=== PATIENT | female | born 1975 ===

== ENCOUNTER 2020-10-08 14:46 | Emergency (ER) | payer MEDICAID, SELFPAY ==
[2020-10-08 14:58] VITALS: BP 158/84; PULSE 67; RESP 16; TEMP 36.6; O2SAT 99; BMI 35.6
--- NOTE | 2020-10-08 15:18 | CT_ITS ---
EXAMINATION: CT SHOULDER WITHOUT CONTRAST, RIGHT CLINICAL INFORMATION: Worsening right shoulder pain COMPARISON: Right shoulder 02/10/2020 TECHNIQUE: Axial images obtained through the right shoulder. Coronal and sagittal reformatted images are performed at CT scanner This CT examination was performed using dose optimization techniques as appropriate, variously including the following: *Automated exposure control *Adjustment of mA and/or kV according to patient size (this includes techniques or standardized protocols for targeted exams where dose is matched to indication/reason for exam; i.e. extremities or head) *Use of iterative reconstruction technique DLP: 514 mGy-cm FINDINGS: No fracture. No dislocation. No soft tissue calcifications. There is a small linear spur at the posterior upper glenoid rim, image 111 series 5 there are no bone erosions. The glenohumeral and the heart, clavicular joint spaces are normal. No soft tissue mass. Visualized portions of the right lung right ribs are normal. The right clavicle is unremarkable. CT/CT shoulder RT wo con IMPRESSION: Normal CT of the right shoulder.
--- NOTE | 2020-10-08 16:20 | ED_ITS ---
HPI - Extremity Problem General Chief complaint: Extremity Problem Stated complaint: rt shoulder pain Time Seen by Provider: 10/08/20 15:18 Source: patient Mode of arrival: ambulatory Limitations: language barrier (Thai-speaking) History of Present Illness HPI Narrative: 45-year-old female presenting to the ED with complaints of worsening right shoulder pain since January. Reports that she was seen here sent to a doctor had the injection which resolved her pain for approximately 1 month then she was seen by Orthopedics they explained to her that they would not do surgery due to she was too young for patient then they referred her to physical therapy and she declined physical therapy. Reports she has been taking 800 mg of Motrin and 500 mg of Tylenol and no symptomatic relief. Reports decreased range of motion. Denies any other injuries complaints or concerns related to this including any headaches, changes in vision, jaw pain, nausea / vomiting, paresthesias, extremity edema, chest pain or shortness of breath. Related Data Previous Rx's Medication Instructions Recorded naproxen 500 mg PO BID PRN #10 tab 10/08/20 oxycodone-acetaminophen [Percocet] 1 tab PO Q6H PRN #10 tab 10/08/20 prednisone 40 mg PO DAILY 5 Days #10 tab 10/08/20 Allergies Allergy/AdvReac Type Severity Reaction Status Date / Time penicillin G [PENICILLIN G] Allergy Unknown ANAPHYLAXIS Unverified 07/19/20 16:50 Review of Systems Review of Systems: Cardiovascular : No Chest Pain, No SOB, No Palpitations, No Orthopnea, No JOSUE Respiratory : No Cough Musculoskeletal : + joint pain, No neck stiffness, No back pain/injury Skin : No lacerations Neuro : No Paresthesias Yes all other systems are reviewed and are negative [facility] Past Medical History Attestation statement: The following information was validated with the patient. Medical History No known health problems Social History Social History Advance Directives: No Advance Directives Information Provided: No Physical Exam Vital Signs: Vital Signs: Last Vital Signs Temp 98 F 10/08/20 14:58 Pulse 62 10/08/20 17:11 Resp 17 10/08/20 17:11 BP 155/89 H 10/08/20 17:11 Pulse Ox 99 10/08/20 17:11 Body Mass Index 35.6 vital signs have been reviewed as normal and appeared to be correct. Blood pressure normal. Heart rate normal. Respiration rate normal. Temperature normal. Oxygen saturation normal. Appearance: Alert. Oriented X3. No acute distress. Head: Normal external exam. Normocephalic. Atraumatic. No Helms signs noted. No raccoon eyes noted Eyes: PERRLA. EOMI. Conjunctiva and sclera normal. Eyelids normal. ENT: Pharynx normal. Uvula midline. Moist mucous membranes. Neck: Normal inspection. Neck supple. FROM. No adenopathy. No meningeal signs. CVS: Normal heart rate and rhythm. Heart sound normal. No murmurs noted. Pulses normal throughout. Respiratory: No respiratory distress. Painless inspiration. Breath sounds normal. No wheezes/rales/rhonchi noted. Chest nontender. No accessory muscle usage noted or decreased air movement noted. Back: Full range of motion noted. Skin: Skin warm and dry. Normal skin color. Normal skin turgor. No rashes/lesions/lacerations noted. Extremities: TTP of Right shoulder at ac joint c limited ROM for abduction, adduction, external and internal rotation. No lower extremity edema. Otherwise all other Extremities exhibit normal range of and nontender. Neuro: Oriented X 3. No motor deficit. No sensory deficit. Reflexes normal. Course Course Course Narrative: - 45-year-old female presenting to the ED with complaints of acute on chronic worsening right shoulder pain denies any new injuries. I reviewed the patient's x-ray on 02/10/2020 which revealed a small distal right acromial undersurface osteophyte with associated rotator cuff impingement. No fractures or dislocations noted. - Patient has limited range of motion. No obvious deformities. No extremity swelling. - Will obtain a CT scan without contrast provide symptomatic treatment then re- evaluate. If no acute processes will DC home with pain medications and referral to orthopedics. Patient understands agrees the plan. MDM - Extremity (Nontraumatic) Lab Data Attestation: I reviewed the patient's lab results. Imaging Data Right shoulder ct scan : Attestation: I personally reviewed and interpreted this imaging study as follows: Radiologist's impression: FINDINGS: No fracture. No dislocation. No soft tissue calcifications. There is a small linear spur at the posterior upper glenoid rim, image 111 series 5 there are no bone erosions. The glenohumeral and the heart, clavicular joint spaces are normal. No soft tissue mass. Visualized portions of the right lung right ribs are normal. The right clavicle is unremarkable. CT/CT shoulder RT wo con IMPRESSION: Normal CT of the right shoulder. Discharge Plan Discharge Clinical Impression: Sprain of right shoulder joint Patient Disposition: Home, Self-Care Instructions: Shoulder Sprain (ED) Prescriptions: New prednisone 20 mg tablet 40 mg PO DAILY 5 Days Qty: 10 RF: 0 oxycodone-acetaminophen [Percocet] 5-325 mg tablet 1 tab PO Q6H PRN (Reason: pain) Qty: 10 RF: 0 naproxen 500 mg tablet 500 mg PO BID PRN (Reason: pain) Qty: 10 RF: 0 Referrals: Regina Samuel MD [Physician] - 1 week Stand Alone Forms: Work/School Release Print Language: Thai
[2020-10-08] MEDS: Ibuprofen 800 MG TABLET PO (16:56)
[2020-10-08 17:11] VITALS: BP 155/89; PULSE 62; RESP 17; O2SAT 99
== END 2020-10-08 18:27 | disposition home or self-care (01) ==
PROVIDERS: Emergency Provider Emergency Medicine; PCP Internal Medicine
DX: S43.401A Unspecified sprain of right shoulder joint, initial encounter (principal); X58.XXXA Exposure to other specified factors, initial encounter; Y93.9 Activity, unspecified; Y92.9 Unspecified place or not applicable; Y99.9 Unspecified external cause status
CPT/HCPCS: 73200; 99284

== ENCOUNTER → 2020-10-22 11:23 | Outpatient (BNVA) | payer MEDICAID, SELFPAY | PROVIDERS: PCP Internal Medicine; Visit Provider Orthopaedic Surgery | DX: M75.51 Bursitis of right shoulder (principal) | CPT/HCPCS: 20610; 99212; J1100 ==

== ENCOUNTER 2020-12-28 12:54 | Outpatient (REF) | payer MEDICAID, SELFPAY ==
--- NOTE | ~2020-12-28 | MR_ITS ---
EXAMINATION: MR SHOULDER WITHOUT CONTRAST, RIGHT CLINICAL INFORMATION: Impingement syndrome right shoulder COMPARISON: CT scan of the right shoulder October 2020. TECHNIQUE: MRI of the shoulder without contrast was performed on a high-field scanner. FINDINGS: ROTATOR CUFF: Supraspinatus: There is heterogeneous increased signal involving the distal supraspinatus tendon. This extends anterior to posterior to the level of the insertion over approximately 1 cm medial to lateral. This could reflect tendinosis but more likely reflects at least a partial tear involving the intrasubstance and bursal side but without a clearly measurable tendon gap. There may also be some extension to the articular side. Trace fluid is noted in the subacromial subdeltoid bursa. The muscle is normal. Remaining rotator cuff muscles and tendons are normal. BICEPS: Normal. CORACOACROMIAL ARCH: The undersurface of the acromion is curved with no subacromial spur. There is moderate hypertrophic osteoarthritis of the acromioclavicular joint. Subacromial subdeltoid bursa small amount of fluid present. LABRUM/CAPSULE: Normal. GLENOHUMERAL JOINT/MARROW: Normal. MR/MR shoulder RT wo con IMPRESSION: 1. 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 2. Small abnormality in the distal supraspinatus tendon likely reflecting at least a partial tear. Possible small irregular full-thickness tear but without a clearly measurable tendon gap. 3. Trace fluid in subacromial subdeltoid bursa compatible with bursitis or related to a subtle irregular full-thickness tear.
== END 2020-12-28 12:55 | disposition home or self-care (01) ==
LOC: HO.MRI 12:54
PROVIDERS: Visit Provider Orthopaedic Surgery
DX: M75.41 Impingement syndrome of right shoulder (principal)
CPT/HCPCS: 73221

== ENCOUNTER 2021-01-01 14:00 | Outpatient (RCR) | payer MEDICAID, SELFPAY ==
--- NOTE | 2020-11-12 17:17 | MHC.PT.EP ---
[facility] [place] Office [place] Office [place] Office [address] Jenifer Bhagat [address] [phone] F: [phone] F: [phone] F: [phone] F: [phone] Physical Therapy Plan of Care Date of Evaluation: 11/12/20 Date of Surgery: Diagnosis: This is a RHD 45 yo female presenting to skilled PT with a script for bursitis of R shoulder. Assessment: This is a 45 yo female presenting to skilled PT with a script for bursitis of R shoulder. This patient is being [place] [facility] [place]. She has had an increase in shoulder pain ongoing since the beginning of Oct 2020 and was seen [place] [facility] [place]. She has had this pain before and had therapy in the past with little improvement in symptoms (the last session being in the summer) however her pain has recently been getting worse. She did not have any injury. She was given an injection on 10/22 at ortho (this was not helpful), was dx'd with bursitis of the R shoulder and referred to PT. Functionally, she states that she cannot comb her hair, clean as usual, don/doff her clothes or hold/lift objects without pain. Her pain is located at the anterior shoulder, UT and into the R bicep. She describes her pain as grossly achy/stabbing and occasional burning at the GHJ. Her assists with housework and dressing at this time due to pain. Assessment reveals pain that ranges from an 8-10/10. She demos very poor shoulder AROM and tolerance for any AAROM, deficits in strength, impaired posture and decreased functional tolerance with all ADLs and housework. She is tender to palpate throughout the R GHJ/UT and became emotional when asked to move her arm in general. She is a fair candidate for skilled PT 2x/wk for 4wks as she has had PT in the past with little relief. Frequency and Duration: The patient will be seen 2x/wk for 4 wks Short Term Goals: I in HEP Demo an improvement in shoulder AROM by at least 10 degs Demo postural correction without cuing from PT Group Home Goals: Demo functional ROM and strength Improve SPADI by grossly 10 points Tolerate combing her hair without more than 2/10 pain Demo good lifting, reaching techniques without assist Treatment Plan: Modalities to reduce pain, spasms and effusion. Manual therapy to restore motion and function. Therapeutic exercise to improve strength and flexibility. Neuromuscular re-education for posture and balance. Therapeutic activities to return to functional activities of daily living. Electronically signed by: Snehal Cannon PT Please sign and return to therapist. Thank you for your referral.
--- NOTE | 2021-01-10 12:48 | MHC.PT.DC ---
[facility] [place] Office [place] Office [place] Office [address] Bhagat [address] [phone] F: [phone] F: [phone] F: [phone] F: [phone] Physical Therapy Discharge Report Diagnosis: This is a RHD 45 yo female presenting to skilled PT with a script for bursitis of R shoulder. Date of Surgery: Date of Evaluation: 11/12/20 Date of Discharge: 01/10/21 Treatments to Date: 14 Cancellations to Date: 0 No Shows to Date: 0 Discharge Status: Recommend MD Follow-up Discharge Summary: Pt gets relief from distraction of right GH joint. we have addressed soft tissue irritability, scap and GH ROM, postural ed, and a HEP to address strength deficits in posterior RC- Pt noted she is sched for Rt shoulder surgery next week- her residual Rt sh pain prevented her from progression in PT as well as ADL tolerance. Electronically signed by: Jess Abdi,PT Please sign and return to therapist. Thank you for your referral.
== END 2021-01-10 12:49 | disposition other institution (70) ==
LOC: HO.PTCHIC 14:00
PROVIDERS: PCP Internal Medicine; Visit Provider Orthopaedic Surgery
DX: M75.51 Bursitis of right shoulder (principal)
CPT/HCPCS: 97014; 97035; 97110; 97140; 97162

== ENCOUNTER → 2021-01-03 13:48 | Outpatient (BNVA) | payer MEDICAID, SELFPAY | PROVIDERS: Visit Provider Orthopaedic Surgery | DX: M75.41 Impingement syndrome of right shoulder (principal); S46.009A Unspecified injury of muscle(s) and tendon(s) of the rotator cuff of unspecified shoulder, initial encounter | CPT/HCPCS: 20610; 99212 ==

== ENCOUNTER 2021-01-16 07:25 | Day surgery (SDC) | payer MEDICAID, SELFPAY ==
[2021-01-09 12:30] VITALS: BMI 34.9
--- NOTE | 2021-01-15 10:17 | HO.ANESPROP2 ---
Documented by User: Aleah Marcie 01/15/21 10:19 HPI - Anesthesia Eval Consult details Narrative: 45yo F for Shoulder Arthroscopy PMFSH Past Medical History Medical History Allergies GERD (gastroesophageal reflux disease) Headache Family History Family History Mother No problems noted. Father No problems noted. Surgical History Surgical History History of tubal ligation Hx of tonsillectomy Social History Social History Are you a primary career development consultant to a significant other at home: No Do you presently have visiting nurse or other home services: No Smoking Status: Never smoker Use of substances other than those prescribed or required for medical reasons: No Have you been hit, kicked, punched, or otherwise hurt by someone within the past year? 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 Meds Allergies Allergy/AdvReac Type Severity Reaction Status Date / Time penicillin G [PENICILLIN G] Allergy Unknown ANAPHYLAXIS Verified 01/16/21 08:28 Home Medications Medication Instructions Recorded Confirmed Last Taken Type cetirizine 1 tab PO DAILY 01/09/21 01/09/21 Unknown History ibuprofen 1 tab PO QID PRN 01/09/21 01/16/21 01/09/21 History omeprazole 1 cap PO DAILY 01/09/21 01/09/21 Unknown History topiramate 1 tab PO DAILY 01/09/21 01/09/21 Unknown History Exam Exam Date and Time: January 15, 2021 1017 Height,Weight and Vital Signs: Height 5 ft 5 in Weight 95.254 kg Pertinent Lab Results Pertinent Lab Results: Laboratory Tests 07/12/20 07/12/20 21:14 21:14 WBC 10.3 Hgb 12.2 Hct 37.9 Plt Count 334 Sodium 141 Potassium 4.0 Chloride 107 BUN 9 Creatinine 0.93 Assessment and Plan Assessment Anesthesia Assessment: Chart Reviewed Documented by User: Lloyd Griffiths MD 01/16/21 12:38 PMFSH Past Medical History Medical History Allergies GERD (gastroesophageal reflux disease) Headache Family History Family History Mother No problems noted. Father No problems noted. Surgical History Surgical History History of tubal ligation Hx of tonsillectomy Social History Social History Are you a primary career development consultant to a significant other at home: No Do you presently have visiting nurse or other home services: No Smoking Status: Never smoker Use of substances other than those prescribed or required for medical reasons: No Have you been hit, kicked, punched, or otherwise hurt by someone within the past year? 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 Meds Allergies Allergy/AdvReac Type Severity Reaction Status Date / Time penicillin G [PENICILLIN G] Allergy Unknown ANAPHYLAXIS Verified 01/16/21 08:28 Home Medications Medication Instructions Recorded Confirmed Last Taken Type cetirizine 1 tab PO DAILY 01/09/21 01/09/21 Unknown History ibuprofen 1 tab PO QID PRN 01/09/21 01/16/21 01/09/21 History omeprazole 1 cap PO DAILY 01/09/21 01/09/21 Unknown History topiramate 1 tab PO DAILY 01/09/21 01/09/21 Unknown History Exam Airway Mallampati Class: I TM Dist: >3cm Neck ROM: Full Loose/Missing/Broken Teeth: No Heart: RRR Lungs: NL Assessment and Plan Assessment Anesthesia Assessment: Anesthesia Plan Discussed and Chart Reviewed Final Anesthetic Review NPO: Yes ASA Class: II Final Preanesthetic Review: No Changes in Pt Med Stat, Meds/Allgs Chart Reviewed, Consent Obtained/Reviewed and Anes Risks/Benef Reviewed Patient Risk: Intermediate Procedure Risk: Intermediate Anesthetic Plan Anesthetic Plan: GA and Regional Block Disposition: Standard PACU
[2021-01-16 08:21] VITALS: BP 132/87; PULSE 83; RESP 18; TEMP 36.8; O2SAT 98
[2021-01-16] MEDS: Lactated Ringers 1,000 ML 100 ML IVCONT (08:47)
--- NOTE | 2021-01-16 13:15 | P.BOP_ITS ---
Brief Operative Note Date of Service: 01/16/21 Pre-op diagnosis: right rtc tear Post-op diagnosis: same Procedure: r rtc repair and sad Implants: Regeneten luciano and nephew bioinductive rtc implant Surgeon: Troy Bueno MD Anesthesia: GETA and regional Gaming Cage Cashier: Heike Dorsey Estimated blood loss (mL): 20 Tourniquet time (min): 0 IV fluids (mL): 1,000 Pathology: none sent Condition: stable Disposition: PACU
[2021-01-16 13:36] VITALS: BP 121/73; PULSE 90; RESP 12; TEMP 36.9; O2SAT 100
[2021-01-16 13:41] VITALS: BP 125/77; PULSE 83; RESP 16; O2SAT 96
[2021-01-16 13:45] VITALS: BP 124/72; PULSE 82; RESP 16; O2SAT 98
[2021-01-16 14:06] VITALS: BP 119/61; PULSE 82; RESP 16; O2SAT 98
[2021-01-16 14:15] VITALS: BP 125/78; PULSE 80; RESP 16; O2SAT 98
--- NOTE | 2021-01-28 12:55 | W.PM.OPN ---
Operative Note Operative Note Date of Service: 01/16/21 Narrative: Pre-op diagnosis: right rtc tear Post-op diagnosis: same Procedure: r rtc repair and sad Implants: Regeneten luciano and nephew bioinductive rtc implant Surgeon: Troy Bueno MD Anesthesia: GETA and regional Production Team Advisor: Heike Dorsey Estimated blood loss (mL): 20 Tourniquet time (min): 0 IV fluids (mL): 1,000 Pathology: none sent Condition: stable Disposition: PACU Procedure in detail: Patient is brought to the operating room placed in the beach chair position. Was prepped and draped in standard sterile fashion and a time-out was called to identify proper site proper procedure proper surgeon and IV antibiotics per weight were administered. I began by making posterolateral stab incision placed my blunt trocar atraumatically into the glenohumeral joint. I insufflated the joint and made a anterior superior portal began my diagnostic arthroscopy. She had no glenohumeral cartilage damage. Gutter was clean. There was some fraying the superior labrum and biceps anchor with minimal tearing. This was debrided with shaver. She did have some anterior interval synovitis which was removed with combination cautery and shaver. There was some undersurface fraying the supraspinatus but otherwise subscapularis was intact and there was no obvious rotator tearing. I then entered the subacromial space and was able to visualize the entirety of the rotator cuff after I established a lateral portal. She had a diminished subacromial space and the supraspinatus was partially torn with approximately 50% the rotator cuff thickness involved. This point I decided to place a bio inductive graft over the portion of torn rotator cuff. There were no full-thickness tears. I placed the 2 cm x 2 cm graft over the area involvement and placed a peek terrell around the graft. Prior to this performed subacromial decompression approximately 6 mm. After the graft was placed I examined it and was happy with the position. Covered the entirety of the involved rotator cuff. Then removed all instrumentation and the portals were closed with nylon. Patient placed in sterile dressing extubated brought to recovery room stable condition there were no complications. Postoperatively we rehab early as per rotator cuff repair with graft protocol.
== END 2021-01-16 14:42 | disposition home or self-care (01) ==
PROVIDERS: PCP Internal Medicine; Visit Provider Orthopaedic Surgery
PROC: (CPT 29826; principal; 2021-01-16 09:50)
DX: S46.011A Strain of muscle(s) and tendon(s) of the rotator cuff of right shoulder, initial encounter (principal); M75.41 Impingement syndrome of right shoulder; X58.XXXA Exposure to other specified factors, initial encounter; Y93.9 Activity, unspecified; Y92.9 Unspecified place or not applicable; Y99.8 Other external cause status; Z88.0 Allergy status to penicillin
CPT/HCPCS: 29827; 29826; C1713; C1781; J0171; J1100; J2250; J2370; J2405; J3010

== ENCOUNTER → 2021-01-28 09:46 | Outpatient (BNVA) | payer MEDICAID, SELFPAY | PROVIDERS: PCP Internal Medicine; Visit Provider Physician Assistant | DX: Z98.890 Other specified postprocedural states (principal) | CPT/HCPCS: 99212 ==

== ENCOUNTER → 2021-03-01 12:45 | Outpatient (BNVA) | payer MEDICAID, SELFPAY | PROVIDERS: PCP Internal Medicine; Visit Provider Physician Assistant | DX: Z98.890 Other specified postprocedural states (principal) | CPT/HCPCS: 99212 ==

== ENCOUNTER → 2021-04-15 12:30 | Outpatient (BNVA) | payer MEDICAID, SELFPAY | PROVIDERS: Visit Provider Physician Assistant | DX: Z98.890 Other specified postprocedural states (principal) | CPT/HCPCS: 99212 ==

== ENCOUNTER 2021-06-13 14:00 | Outpatient (RCR) | payer MEDICAID, SELFPAY ==
--- NOTE | 2021-02-06 15:57 | MHC.PT.EP ---
[facility] [place] Office [place] Office [place] Office [address]agat [address] [phone] F: [phone] F: [phone] F: [phone] F: [phone] Physical Therapy Plan of Care Date of Evaluation: 02/06/21 Date of Surgery: 01/16/21 Diagnosis: S/P Rt RC REPAIR W Regeneten luciano and nephew bioinductive rtc implant 01/16/21 Assessment: 45 YO FEMALE S/P Rt RC REPAIR W Regeneten luciano and nephew bioinductive rtc implant 01/16/21- SHE HAS BEEN WEANING Rt SH SLING AND IS REF TO PT AT THIS TIME - Pt CURRENTLY HAS FAMILY ASSIST W ADLs/ DRESSING AND COMPENSATES W HER LEFT UE. Pt HAS POST OP Rt SH ROM DEFICITS, Rt SH COMPLEX WEAKNESS, (+) SOFT TISSUE TENDERNESS AND Rt SH PAIN. FUNCTIONALLY, Pt IS LIMITED W ADLs/ DRESSING, AND GENERAL FUNCTIONAL MOB ANDREW. SHE IS A GOOD CANDIDATE FOR PT TO ASSIT HER ALONG HER POST OP COURSE- Pt HAD DECR ANDREW FOR ROM THIS DATE, SHE NOTED SHE DID NOT TAKE PAIN MEDS OR ICE TODAY. Frequency and Duration: The patient will be seen 2x WK x 5 -8 WKS Short Term Goals: Pt'S Rt SH PAIN DECR TO 2-3/10 AND Pt INDEP W IN 2 WKS RESTORE ROM Rt SH PER PROTOCOL Pt INDEP W SELF POSTURAL CORRECTION IN 2 WKS Head Insulation Board Saw Operator Goals: Pt INDEP W HEP AND SELF- SX MGMT TECHN IN 5-8 WKS Pt DEMON WFL AROM AND SCAP STAB/ Rt UE STRENGTH TO RESUME REG ADLs IN 5-8 WKS Pt'S SPADI SCORE IMPROVED BY 30 POINTS (AT EVAL 130/130) Treatment Plan: Modalities to reduce pain, spasms and effusion. Manual therapy to restore motion and function. Therapeutic exercise to improve strength and flexibility. Neuromuscular re-education for posture and balance. Therapeutic activities to return to functional activities of daily living. Electronically signed by: Jess Jha,PT Please sign and return to therapist. Thank you for your referral.
--- NOTE | 2021-08-21 09:32 | MHC.PT.DC ---
[facility] [place] Office [place] Office [place] Office [address] Jenifer Bhagat [address] [phone] F: [phone] F: [phone] F: [phone] F: [phone] Physical Therapy Discharge Report Diagnosis: S/P Rt RC REPAIR W Evangelina luciano and bassem bioinductive rtc implant 01/16/21 Date of Surgery: 01/16/21 Date of Evaluation: 02/06/21 Date of Discharge: 07/02/21 Treatments to Date: 25 Cancellations to Date: 0 No Shows to Date: 0 Discharge Status: Visit Non-compliance Discharge Summary: Pt with AAROM flexion to 146, ER to 56 at 60 and 90 at last appointment. Pt progress was slow and she had questionable compliance with HEP. She was ultimately discharged due to visit non-compliance including numerous cancels and no-shows. Electronically signed by: Carlos Baxter, PT Please sign and return to therapist. Thank you for your referral.
== END 2021-07-02 14:25 | disposition home or self-care (01) ==
LOC: HO.PTCHIC 14:00
PROVIDERS: PCP Internal Medicine; Visit Provider Orthopaedic Surgery
DX: Z98.890 Other specified postprocedural states (principal)
CPT/HCPCS: 97110; 97112; 97140; 97162; 97164; 97530

== ENCOUNTER → 2021-06-19 11:12 | Outpatient (BNVA) | payer MEDICAID, SELFPAY | PROVIDERS: PCP Internal Medicine; Visit Provider Physician Assistant | DX: M25.611 Stiffness of right shoulder, not elsewhere classified (principal); K21.9 Gastro-esophageal reflux disease without esophagitis; R51.9 Headache, unspecified; Z88.0 Allergy status to penicillin; Z98.890 Other specified postprocedural states | CPT/HCPCS: 99212 ==

== ENCOUNTER → 2021-07-15 11:16 | Outpatient (BNVA) | payer MEDICAID, SELFPAY | PROVIDERS: PCP Internal Medicine; Visit Provider Orthopaedic Surgery | DX: M25.611 Stiffness of right shoulder, not elsewhere classified (principal); Z98.890 Other specified postprocedural states | CPT/HCPCS: 99212 ==

== ENCOUNTER → 2021-10-14 11:17 | Outpatient (BNVA) | payer MEDICAID, SELFPAY | PROVIDERS: PCP Internal Medicine; Visit Provider Orthopaedic Surgery | DX: M75.01 Adhesive capsulitis of right shoulder (principal); Z98.890 Other specified postprocedural states | CPT/HCPCS: 99212 ==

== ENCOUNTER 2021-11-21 12:59 | Emergency (ER) | payer MEDICAID, SELFPAY ==
[2021-11-21 13:27] VITALS: BP 153/93; PULSE 72; RESP 18; TEMP 37.1; O2SAT 99; BMI 31.2
--- NOTE | 2021-11-21 14:34 | ED_ITS ---
HPI - General Adult General Chief complaint: Skin/Abscess/Foreign Body Stated complaint: Vaccine reaction Time Seen by Provider: 11/21/21 14:04 Source: patient Limitations: no limitations History of Present Illness HPI narrative: Patient presents to the ER with left deltoid pain after getting her booster vaccine on the . Patient also feels some lumps in her left axilla. Patient denies fever chills or shortness of breath at this time. Symptoms are [id number]. Pain is 04/11 Related Data Home Medications Medication Instructions Recorded Confirmed cetirizine 10 mg tablet 1 tab PO DAILY 01/09/21 01/09/21 ibuprofen 800 mg tablet 1 tab PO QID PRN 01/09/21 01/16/21 omeprazole 20 mg capsule,delayed 1 cap PO DAILY 01/09/21 01/09/21 release topiramate 50 mg tablet 1 tab PO DAILY 01/09/21 01/09/21 Previous Rx's Medication Instructions Recorded oxycodone 10 mg tablet,crush 10 mg PO Q12H 3 Days #6 tab 01/16/21 resistant,extended release 12 hr (OxyContin) oxycodone-acetaminophen 5 mg-325 1 tab PO Q8H PRN #21 tab 01/29/ mg tablet oxycodone-acetaminophen 5 mg-325 1 tab PO Q8H PRN 7 Days #21 tab 02/07/21 mg tablet (Percocet) oxycodone-acetaminophen 5 mg-325 1 tab PO BID PRN 7 Days #14 tab 02/21/21 mg tablet Allergies Allergy/AdvReac Type Severity Reaction Status Date / Time penicillin G [PENICILLIN G] Allergy Unknown ANAPHYLAXIS Verified 11/21/21 13:27 Review of Systems Constitutional: Constitutional: Denies chills, Denies fever(s) and Denies headache(s) ENT: Denies headache(s) and Denies sore throat Cardiovascular: Cardiovascular: Denies chest pain Respiratory: Respiratory: Denies cough and Denies pain with cough Gastrointestinal: Gastrointestinal: Denies nausea and Denies vomiting Musculoskeletal: Comments: left deltoid pain Neurologic: Denies headache(s) [facility] Past Medical History Attestation statement: The following information was validated with the patient. Medical History Allergies GERD (gastroesophageal reflux disease) Headache Surgical History History of tubal ligation Hx of tonsillectomy Family History Family History Mother No problems noted. Father No problems noted. 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 Blood pressure normal. Heart rate normal. Respiration rate normal. Temperature normal. Oxygen saturation normal. Appearance: Alert. Oriented X3. No acute distress. Head: Normal external exam. Normocephalic. Eyes: PERRLA. EOMI. Conjunctiva and sclera normal. Eyelids normal. ENT: Pharynx normal. Uvula midline. Moist mucous membranes. CVS: Heart regular rate and rhythm no murmurs and rubs Respiratory: Breath sounds are clear to auscultation bilaterally. No accessory muscle use noted. Skin: skin is warm and dry left axilla no sign of abscess some light adenopathy palpated. Extremities: Left deltoid slight tenderness from where vaccine was injected possible small hematoma Neuro: Oriented X 3. No motor deficit. No sensory deficit. Reflexes normal. Course Course Course Narrative: left deltoid hematoma status post vaccine left axilla adenopathy secondary to vaccine vaccine reaction left axilla adenopathy likely secondary to vaccine booster patient instructed this is a normal response to a vaccine warm compresses recommended Motrin Tylenol for pain Discharge Plan Discharge Clinical Impression: Hematoma Patient Disposition: Home, Self-Care Instructions: Hematoma (ED) Additional Instructions: warm compresses to left shoulder and left axilla your response to the vaccine is normal in seen in many patients Tylenol Motrin for pain Prescriptions: No Action oxycodone-acetaminophen 5-325 mg tablet 1 tab PO Q8H PRN (Reason: pain) Qty: 21 RF: 0 oxycodone-acetaminophen [Percocet] 5-325 mg tablet 1 tab PO Q8H PRN (Reason: pain (scale score 4-6)) 7 Days Qty: 21 RF: 0 oxycodone-acetaminophen 5-325 mg tablet 1 tab PO BID PRN (Reason: pain) 7 Days Qty: 14 RF: 0 cetirizine 10 mg tablet 1 tab PO DAILY RF: 0 omeprazole 20 mg capsule,delayed release(DR/EC) 1 cap PO DAILY RF: 0 topiramate 50 mg tablet 1 tab PO DAILY RF: 0 ibuprofen 800 mg tablet 1 tab PO QID PRN (Reason: Pain) RF: 0 oxycodone [OxyContin] 10 mg tablet,oral only,ext.rel.12 hr 10 mg PO Q12H 3 Days Qty: 6 RF: 0 Print Language: Tamazight
== END 2021-11-21 14:47 | disposition home or self-care (01) ==
PROVIDERS: Emergency Provider Emergency Medicine; PCP Internal Medicine
DX: M79.81 Nontraumatic hematoma of soft tissue (principal); R59.0 Localized enlarged lymph nodes; M79.602 Pain in left arm; T50.B95A Adverse effect of other viral vaccines, initial encounter; Y92.9 Unspecified place or not applicable
CPT/HCPCS: 99283

== ENCOUNTER 2021-12-17 11:29 | Outpatient (REF) | payer MEDICAID, SELFPAY ==
--- NOTE | ~2021-12-17 | MM_ITS ---
EXAMINATION: MM SCREENING DIGITAL BREAST TOMOSYNTHESIS, BILATERAL CLINICAL INFORMATION: Screening. Asymptomatic. The lifetime risk of breast cancer based on the Tyrer-Cuzick Model is 14%. COMPARISON: Mammography: 12/29/2018, 05/13/2017 (baseline) TECHNIQUE: Digital breast tomosynthesis is performed in both the craniocaudal and mediolateral oblique views along with computer-aided detection (CAD). Synthesized 2D images are generated from the tomosynthesis. FINDINGS: There are scattered areas of fibroglandular density (ACR BI-RADS breast composition Category b). Parenchymal pattern is similar to prior studies. There is no developing density or architectural abnormality. The axilla and skin contours are unremarkable. No significant changes. MM/MM tomosynthesis screening BI IMPRESSION: No mammographic evidence of malignancy. ASSESSMENT: BI-RADS 1: Negative RECOMMENDATION: Routine annual mammography screening. This patient's information was entered into a reminder system with a target due date for their next mammogram.
== END 2021-12-17 11:30 | disposition home or self-care (01) ==
LOC: HO.MAMMO 11:29
PROVIDERS: PCP Internal Medicine; Visit Provider Internal Medicine
DX: Z12.31 Encounter for screening mammogram for malignant neoplasm of breast (principal)
CPT/HCPCS: 77063; 77067

== ENCOUNTER 2022-01-06 11:00 | Outpatient (RCR) | payer MEDICAID, SELFPAY ==
--- NOTE | 2021-12-11 11:34 | MHC.PT.EP ---
[facility] [place] [facility] [place] [facility] [place] [facility] [address] [phone] F: [phone] F: [phone] F: [phone] F: [phone] Physical Therapy Plan of Care Date of Evaluation: Date of Surgery: 01/16/2021 Diagnosis: Adhesive capsulitis of R shoulder Assessment: Julia is a 46 year old female who is referred to PT for adhesive capsulitis of R shoulder . Pt reports of having h/o chronic shoulder pain and rotator cuff surgery in December 2020. She has had several rounds of PT but has not made significant gains. She has returned to PT as she thinks her symptoms are worsening. On PT examination she presented with 8/10 pain with shoulder movements, TTP over shoulder joint line, decreased shoulder ROM, decreased scap muscle strength, altered posture and GH rhythm. Due to these impairments she has difficulty performing ADLS like getting dressed, carrying weights and performing IADLS like cleaning, cooking and grocery. She would benefit from skilled PT to address the aforementioned impairments and improve tolerance to functional activities. Frequency and Duration: The patient will be seen 2/week for 8 weeks Short Term Goals: 1. Pt will have 50% decrease in pain which will enable her to reach in forward and lateral planes in 3 weeks. 2. Pt will be able to move shoulder through full plane of motion with a pain no more than 3/10 which will enable her to dress her upper body in 4 weeks. [employer] Goals: 1. Pt will have an increase in muscle strength by 1 grade which will enable her to carry pots and pans in 6 weeks. 2. Pt will be independent with HEP for symptom management and maintenance following d/c in 8 weeks. Treatment Plan: Modalities to reduce pain, spasms and effusion. Manual therapy to restore motion and function. Therapeutic exercise to improve strength and flexibility. Neuromuscular re-education for posture and balance. Therapeutic activities to return to functional activities of daily living. Electronically signed by: Jennifer Jimenez PT DPT Please sign and return to therapist. Thank you for your referral.
--- NOTE | 2022-01-17 08:37 | MHC.PT.DC ---
[facility] [place] [facility] [place] [facility] [place] [facility] [address] [phone] F: [phone] F: [phone] F: [phone] F: [phone] Physical Therapy Discharge Report Diagnosis: Adhesive capsulitis of R shoulder Date of Surgery: 01/16/2021 Date of Evaluation: 12/11/21 Date of Discharge: 01/17/22 Treatments to Date: 4 Cancellations to Date: 0 No Shows to Date: 0 Discharge Status: Insurance Declined Tx Discharge Summary: Ludwin has been d/c from PT due to insurance issues. She was distributed extensive HEP and was advised to continue them until full recovery. Electronically signed by: Jennifer Jimenez PT DPT Please sign and return to therapist. Thank you for your referral.
== END 2022-01-17 08:37 | disposition home or self-care (01) ==
LOC: HO.PT 11:00
PROVIDERS: PCP Internal Medicine; Visit Provider Orthopaedic Surgery
DX: M75.01 Adhesive capsulitis of right shoulder (principal); M25.611 Stiffness of right shoulder, not elsewhere classified; Z98.890 Other specified postprocedural states
CPT/HCPCS: 97110; 97112; 97140; 97161

== ENCOUNTER → 2022-06-12 13:59 | Outpatient (BNVA) | payer MEDICAID, SELFPAY | PROVIDERS: PCP Internal Medicine; Visit Provider Orthopaedic Surgery | DX: Z98.890 Other specified postprocedural states (principal) | CPT/HCPCS: 99212 ==

== ENCOUNTER 2022-06-25 14:44 | Outpatient (REF) | payer MEDICAID, SELFPAY ==
--- NOTE | ~2022-06-25 | MR_ITS ---
EXAMINATION: MR SHOULDER WITHOUT CONTRAST, RIGHT CLINICAL INFORMATION: Right shoulder pain. Limited range of motion. Surgery in 2019. COMPARISON: Right shoulder MRI dated 12/28/2020. TECHNIQUE: MRI of the shoulder without contrast was performed on a high-field scanner. FINDINGS: ROTATOR CUFF: The supraspinatus tendon appears intervally attenuated when compared to the prior examination without a measurable tendon tear or abnormal intrasubstance signal. There is adjacent postsurgical change. New degenerative spurring adjacent to the insertion at the greater tuberosity. The remaining rotator cuff tendons are intact. No measurable tear. No muscle atrophy or fatty infiltration. BICEPS: Intact. CORACOACROMIAL ARCH: Interval acromioplasty and distal clavicular resection. No marrow edema or evidence of complication. LABRUM/CAPSULE: No displaced labral tear. Intact joint capsule. GLENOHUMERAL JOINT/MARROW: Mild articular cartilage signal heterogeneity with full-thickness loss superiorly. Tiny marginal osteophytes. Findings are slightly progressed when compared to the prior examination. MR/MR shoulder RT wo con IMPRESSION: 1. Postsurgical change of the supraspinatus tendon without recurrent tearing. Overall, the rotator cuff tendons are intact. 2. Acromioplasty and distal clavicular resection without evidence of complication. 3. Mild glenohumeral osteoarthritis, progressed when compared to the prior MRI.
== END 2022-06-25 14:45 | disposition home or self-care (01) ==
LOC: HO.MRI 14:44
PROVIDERS: Visit Provider Orthopaedic Surgery
DX: Z98.890 Other specified postprocedural states (principal)
CPT/HCPCS: 73221

== ENCOUNTER 2022-12-26 15:34 | Emergency (ER) | payer MEDICAID, SELFPAY ==
--- NOTE | ~2022-12-26 | XR_ITS ---
EXAMINATION: XR CHEST CLINICAL INFORMATION: Chest pain. COMPARISON: Chest radiograph 09/15/2013. TECHNIQUE: Frontal view of the chest was obtained. FINDINGS: No significant abnormality is noted involving the heart, lungs, mediastinum, bony thorax or soft tissues. XR/XR chest 1V IMPRESSION: Unremarkable examination.
[2022-12-26 16:13] VITALS: BP 148/78; PULSE 66; RESP 18; TEMP 36.8; O2SAT 99; BMI 25.8
--- NOTE | 2022-12-26 16:13 | ED_ITS ---
HPI - General Adult General Chief complaint: Headache <ERYN Almazan - Last Filed: 12/26/22 16:16> Stated complaint: L earache, nausea, cant hear well out of ear? <ERYN Almazan - Last Filed: 12/26/22 16:16> Time Seen by Provider: 12/26/22 16:59 <ERYN Almazan - Last Filed: 12/26/22 16:16> Source: patient <ERYN Salas - Last Filed: 12/26/22 18:58> Mode of arrival: ambulatory <ERYN Salas Last Filed: 12/26/22 18:58> History of Present Illness HPI narrative: 47-year-old female with a past medical history of GERD, migraines, presenting to the ED complaining of migraine headache, nausea, lightheadedness described as feeling faint worse with position changes and head movement, ear pain, & abdominal discomfort x1 week. Also reports chest pain 2 days ago. Reports dark stools, admits has been taking Pepto-Bismol. Describes headache as typical for migraines, has not self medicated, not maximal in onset. Denies SOB, vomiting, diarrhea, dysuria/hematuria. Takes ASA <ERYN Salas Last Filed: 12/26/22 18:58> Onset (ago): week(s) <ERYN Salas - Last Filed: 12/26/22 18:58> Related Data Home medications: Home Medications Medication Instructions Recorded Confirmed cetirizine 10 mg tablet 1 tab PO DAILY 01/09/21 01/09/21 ibuprofen 800 mg tablet 1 tab PO QID PRN Pain 01/09/21 01/16/21 omeprazole 20 mg capsule,delayed 1 cap PO DAILY 01/09/21 01/09/21 release topiramate 50 mg tablet 1 tab PO DAILY headache 01/09/21 01/09/21 Previous Rx's Medication Instructions Recorded oxycodone 10 mg tablet,crush 10 mg PO Q12H 3 days #6 tabs 01/16/21 resistant,extended release 12 hr (OxyContin) oxycodone-acetaminophen 5 mg-325 1 tab PO Q8H PRN pain #21 tabs 01/29/21 mg tablet oxycodone-acetaminophen 5 mg-325 1 tab PO Q8H PRN pain (scale score 02/07/21 mg tablet (Percocet) 4-6) 7 days #21 tabs oxycodone-acetaminophen 5 mg-325 1 tab PO BID PRN pain 7 days #14 02/21/21 mg tablet tabs <ERYN Almazan - Last Filed: 12/26/22 16:16> Allergies/adverse reactions: Allergies Allergy/AdvReac Type Severity Reaction Status Date / Time penicillin G [PENICILLIN G] Allergy Unknown ANAPHYLAXIS Verified 12/26/22 16:12 <ERYN Almazan - Last Filed: 12/26/22 16:16> Review of Systems Review of Systems: Constitutional: No Fever, No Chills, + Fatigue, No Malaise ENT/Mouth: + Ear Pain, No Nasal Congestion, No Sinus Pain, No Hoarseness, No sore throat, No Rhinorrhea, No Swallowing Difficulty Eyes: No Eye Pain, No Swelling, No Redness, No Vision Changes Cardiovascular: +Chest Pain, No SOB, No Orthopnea, No Edema, No Palpitations Respiratory: No Cough, No Sputum, No Dyspnea Gastrointestinal: No Nausea, No Vomiting, No Diarrhea, No Constipation, + Abdominal pain, +dark stool Genitourinary: No irregular bleeding, No Dysuria, No Hematuria, No Flank Pain, No Urinary Flow Changes Musculoskeletal: No joint pain, No Myalgias, No Joint Swelling Skin: No Skin Lesions, No rash Neuro: +Gen Weakness, No Numbness, No Paresthesias, No Loss of Consciousness, + lightheadedness/ Dizziness, + Headache <ERYN Salas Last Filed: 12/26/22 18:58> Yes all other systems are reviewed and are negative <ERYN Salas Last Filed: 12/26/22 18:58> Constitutional: Constitutional: Reports as per HPI <ERYN Salas Last Filed: 12/26/22 18:58> Neurologic: Denies Abnormal speech present <ERYN Salas Last Filed: 12/26/22 18:58> PMFSH Past Medical History Attestation statement: The following information was validated with the patient. <ERYN Salas Last Filed: 12/26/22 18:58> Medical History: Medical History Allergies GERD (gastroesophageal reflux disease) Headache <ERYN Almazan - Last Filed: 12/26/22 16:16> Surgical History: Surgical History History of tubal ligation Hx of tonsillectomy <ERYN Almazan - Last Filed: 12/26/22 16:16> Family History Family History: Family History Mother No problems noted. Father No problems noted. <ERYN Almazan - Last Filed: 12/26/22 16:16> Social History Social History: Social History Are you a primary geriatric personal care aide to a significant other at home: No Do you presently have visiting nurse or other home services: No Advance Directives: No Advance Directives Information Provided: No Current occupational status: employed Current occupation: D[employer]/right handed <ERYN Almazan - Last Filed: 12/26/22 16:16> Physical Exam ED Vital Signs: Vital Signs - 24 hr 12/26/22 16:13 12/26/22 18:32 12/26/22 18:33 Temperature 98.2 F Pulse Rate 66 54 64 Respiratory Rate 18 Blood Pressure 148/78 H 136/60 131/68 Pulse Oximetry 99 Oxygen Delivery Method Room Air 12/26/22 18:34 Temperature Pulse Rate 64 Respiratory Rate Blood Pressure 121/73 Pulse Oximetry Oxygen Delivery Method BMI result Body Mass Index 25.8 <ERYN Almazan - Last Filed: 12/26/22 16:16> Vital Signs - 24 hr 12/26/22 16:13 12/26/22 18:32 12/26/22 18:33 Temperature 98.2 F Pulse Rate 66 54 64 Respiratory Rate 18 Blood Pressure 148/78 H 136/60 131/68 Pulse Oximetry 99 Oxygen Delivery Method Room Air 12/26/22 18:34 Temperature Pulse Rate 64 Respiratory Rate Blood Pressure 121/73 Pulse Oximetry Oxygen Delivery Method BMI result Body Mass Index 25.8 <ERYN Salas - Last Filed: 12/26/22 18:58> Const General: cooperative, no acute distress, alert and awake <ERYN Salas - Last Filed: 12/26/22 18:58> Orientation/consciousness: patient oriented x3 <ERYN Salas - Last Filed: 12/26/22 18:58> Limitations: no limitations <Billie Do NE - Last Filed: 12/26/22 18:58> HENMT Head: Yes normal to inspection and Yes atraumatic <ERYN Salas - Last Filed: 12/26/22 18:58> Ears: hearing grossly normal bilaterally, external ears normal, TM's normal bilaterally and mastoids normal <ERYN Salas - Last Filed: 12/26/22 18:58> General nose exam: Normal external nose present <ERYN Salas - Last Filed: 12/26/22 18:58> Face and sinus: Yes normal facial exam <ERYN Salas - Last Filed: 12/26/22 18:58> Mouth: Normal oral and palatal mucosa present <ERYN Salas - Last Filed: 12/26/22 18:58> Throat: Yes posterior oropharynx normal, Yes tonsils normal and Yes uvula midline <ERYN Salas - Last Filed: 12/26/22 18:58> Eyes General: appearance normal, both eyes and all related structures <ERYN Salas - Last Filed: 12/26/22 18:58> Pupils: Equal, round and reactive pupils present <ERYN Salas - Last Filed: 12/26/22 18:58> EOM: EOMs intact bilaterally <ERYN Salas - Last Filed: 12/26/22 18:58> Neck Neck: Yes normal visual inspection and Yes no meningeal signs <ERYN Salas - Last Filed: 12/26/22 18:58> Resp Effort & Inspection: normal respiratory effort and no respiratory distress <ERYN Salas - Last Filed: 12/26/22 18:58> Auscultation: clear to auscultation bilaterally, no crackles, no rales and no rhonchi <Billie Pouliot, PA - Last Filed: 12/26/22 18:58> Cardio Rate: regular rate <Billie Poulkendrat PA - Last Filed: 12/26/22 18:58> Heart sounds: S1 normal heart sound present and S2 normal heart sound present <Billie Do, PA - Last Filed: 12/26/22 18:58> GI Inspection: Yes normal to inspection <Billie Do, PA - Last Filed: 12/26/22 18:58> Palpation (GI): Soft to palpation, nontender, no guarding and not rigid <Billie Poulkendrat, PA - Last Filed: 12/26/22 18:58> General: Yes no CVA tenderness <Billie Poulkendrat, PA - Last Filed: 12/26/22 18:58> Back/Spine/Pelvis Back: no CVA tenderness <Billie Poulkendrat, PA - Last Filed: 12/26/22 18:58> Skin Rashes: no rashes <Billie Quinnt PA - Last Filed: 12/26/22 18:58> Wounds: no wounds <Billie Poulkendrat, PA - Last Filed: 12/26/22 18:58> Neuro General: patient oriented x3, tone normal, moves all extremities, no meningeal signs, no focal motor deficits and CN's II-XI intact bilaterally <Billie Do PA - Last Filed: 12/26/22 18:58> Cranial nerves: Yes CN's II-XII intact bilaterally and Yes Equal, round and reactive pupils present <Billie Kait PA - Last Filed: 12/26/22 18:58> Cognition (Neuro): normal cognition <Billie Poulkendrat, PA - Last Filed: 12/26/22 18:58> Speech: No Abnormal speech present <Billie Poultorrie PA - Last Filed: 12/26/22 18:58> Motor exam (neuro): 5/5 motor strength present throughout and Pronator motor function not present <Billie Poulkendrat, PA - Last Filed: 12/26/22 18:58> Coordination: [id number] test normal <Billie Do PA - Last Filed: 12/26/22 18:58> Romberg Test: Negative <Billie Poulkendrat, PA - Last Filed: 12/26/22 18:58> Extrem General: Yes normal to inspection <ERYN Salas Last Filed: 12/26/22 18:58> Course Course Course Narrative: RME performed by Danette Bond PA-C. Patient is a 47 year old female presenting to the emergency room with headache, dizziness, and feeling generally unwell. Labs ordered. Patient placed back in waiting room pending room availabilit and results. <ERYN Almazan Last Filed: 12/26/22 16:16> RME performed by Danette Bond PA-C. Patient is a 47 year old female presenting to the emergency room with headache, dizziness, and feeling generally unwell. Labs ordered. Patient placed back in waiting room pending room availabilit and results. -1748--no leukocytosis. H&H low at 9.4/31.9 > patient does report history of anemia, unsure prior lab values -labs otherwise reassuring. COVID-19 negative -1848--troponin negative. Occult stool negative XR chest 1V IMPRESSION: Unremarkable examination. -orthostatic vital signs negative -1858--on re-evaluation patient reports mild symptomatic improvement. Reports still feeling dizzy. Will give Benadryl and Ativan and re-evaluate. 1900--ED care transferred to [facility] pending re-evaluation and anticipated discharge home <ERYN Salas Last Filed: 12/26/22 18:58> Medications Administered Discontinued Medications Generic Name Dose Route Start Last Admin Trade Name Freq PRN Reason Stop Dose Admin Acetaminophen/Butalbital/Caffeine 2 tab 12/26/22 17:39 12/26/22 18:21 Butalb/Acetamin/Caff 50/325/40 Tablet PO 12/26/22 17:40 2 tab ONCE ONE Administration Meclizine HCl 25 mg 12/26/22 17:37 12/26/22 18:21 Meclizine Hcl 25 Mg Tablet PO 12/26/22 17:38 25 mg ONCE ONE Administration <ERYN Almazan Last Filed: 12/26/22 16:16> Medications Administered Discontinued Medications Generic Name Dose Route Start Last Admin Trade Name Freq PRN Reason Stop Dose Admin Acetaminophen/Butalbital/Caffeine 2 tab 12/26/22 17:39 12/26/22 18:21 Butalb/Acetamin/Caff 50/325/40 Tablet PO 12/26/22 17:40 2 tab ONCE ONE Administration Meclizine HCl 25 mg 12/26/22 17:37 12/26/22 18:21 Meclizine Hcl 25 Mg Tablet PO 12/26/22 17:38 25 mg ONCE ONE Administration <ERYN Salas - Last Filed: 12/26/22 18:58> Medical Decision Making Medical Decision Making MDM Narrative: 47-year-old female with a past medical history of GERD, migraines, presenting to the ED complaining of migraine headache, nausea, lightheadedness described as feeling faint worse with position changes and head movement, ear pain, & abdominal discomfort x1 week. Also reports chest pain 2 days ago. On exam vital signs stable, NAD, nontoxic appearing, lungs CTA, abdomen soft/nontender, no focal neuro deficits. Concern for viral illness vs dehydration/metabolic abnormalities vs ? GI bleed vs migraine headache vs BPPV. Lower suspicion for ACS/PE, appendicitis/diverticulitis, ICH or CVA Plan: EKG, labs, UA, CXR, occult stool, orthostatics, re-evaluate Please refer to course for remaining clinical decision making, interpretation of labs/imaging results, and discussions with consultants and/or family members. <ERYN Salas - Last Filed: 12/26/22 18:58> Differential Diagnosis Differential Diagnoses: The differential diagnosis associated with the presentation includes <ERYN Salas Last Filed: 12/26/22 18:58> As above <ERYN Salas - Last Filed: 12/26/22 18:58> Admission/Observation Consideration of admission/observation: Escalation of care including admission/observation considered <ERYN Salas Last Filed: 12/26/22 18:58> Lab Data [facility] Lab Attestation statement: I reviewed the patient's lab results. <ERYN Salas Last Filed: 12/26/22 18:58> Result Diagrams: 12/26/22 16:46 12/26/22 16:46 <ERYN Almazan - Last Filed: 12/26/22 16:16> Labs: Lab Results 12/26/22 12/26/22 12/26/22 Range/Units 16:46 16:46 16:46 WBC 7.1 (4.8-10.8) X10*3/uL RBC 4.37 (4.20-5.50) X10*6/uL Hgb 9.4 L (12.0-16.0) g/dl Hct 31.9 L (37.0-47.0) % MCV 73.0 L (80.0-98.0) fL MCH 21.5 L (27.0-33.0) pg MCHC 29.5 L (31.0-35.0) g/dl RDW 16.2 H (11.0-16.0) % Plt Count 427 H (160-400) X10*3/uL MPV 8.7 L (9.4-12.3) fL Immature Gran % (Auto) 0.3 (0.0-0.4) % Neut % (Auto) 47.0 (45-73) % Lymph % (Auto) 44.9 H (20-40) % Thomas % (Auto) 7.5 (2-11) % Eos % (Auto) 0.0 (0-4) % Baso % (Auto) 0.3 (0-2) % Lymph # (Auto) 3.2 (1.2-4.9) X10*3/uL Thomas # (Auto) 0.5 (0.1-1.2) X10*3/uL Eos # (Auto) 0.0 (0.0-0.4) X10*3/uL Baso # (Auto) 0.0 (0.0-0.2) X10*3/uL Abs Immat Gran (auto) 0.02 (0.00-0.03) X10*3/uL Absolute Neuts (auto) 3.3 (2.0-8.3) x10*3/uL Absolute Nucleated RBC 0.000 (0.0-0.012) X10*3/uL Nucleated RBC % (auto) 0.0 (0.0-0.2) /100WBC PT (10.0-13.1) SEC INR (0.9-1.1) Sodium 138 (135-145) mmol/L Potassium 4.5 (3.3-5.1) mmol/L Chloride 104 (96-108) mmol/L Carbon Dioxide 29 (22-29) mmol/L Anion Gap 10 L (12-20) BUN 9 (9-16) mg/dL Creatinine 0.82 (0.5-1.4) mg/dL Estim Creat Clear Calc 93.6 Estimated GFR > 60 Random Glucose 133 H (60-115) mg/dL Calcium 9.6 (8.4-10.2) mg/dL Magnesium 2.0 (1.6-2.6) mg/dL Total Bilirubin 0.3 (0.0-1.0) mg/dL AST 15 (5-31) U/L ALT 15 (0-31) U/L Alkaline Phosphatase 88 (39-117) U/L Troponin I High Sens (<3.5-17.0) ng/L Total Protein 7.8 (6.5-8.0) g/dL Albumin 4.1 (3.5-5.0) g/dL Lipase 25 (8-78) U/L Stool Occult Blood (NEGATIVE) COVID-19 ([place]) Negative (Negative) COVID-19 Clin Com See Note 12/26/22 12/26/22 12/26/22 Range/Units 17:44 17:44 17:44 WBC (4.8-10.8) X10*3/uL RBC (4.20-5.50) X10*6/uL Hgb (12.0-16.0) g/dl Hct (37.0-47.0) % MCV (80.0-98.0) fL MCH (27.0-33.0) pg MCHC (31.0-35.0) g/dl RDW (11.0-16.0) % Plt Count (160-400) X10*3/uL MPV (9.4-12.3) fL Immature Gran % (Auto) (0.0-0.4) % Neut % (Auto) (45-73) % Lymph % (Auto) (20-40) % Thomas % (Auto) (2-11) % Eos % (Auto) (0-4) % Baso % (Auto) (0-2) % Lymph # (Auto) (1.2-4.9) X10*3/uL Thomas # (Auto) (0.1-1.2) X10*3/uL Eos # (Auto) (0.0-0.4) X10*3/uL Baso # (Auto) (0.0-0.2) X10*3/uL Abs Immat Gran (auto) (0.00-0.03) X10*3/uL Absolute Neuts (auto) (2.0-8.3) x10*3/uL Absolute Nucleated RBC (0.0-0.012) X10*3/uL Nucleated RBC % (auto) (0.0-0.2) /100WBC PT 11.5 (10.0-13.1) SEC INR 1.0 (0.9-1.1) Sodium (135-145) mmol/L Potassium (3.3-5.1) mmol/L Chloride (96-108) mmol/L Carbon Dioxide (22-29) mmol/L Anion Gap (12-20) BUN (9-16) mg/dL Creatinine (0.5-1.4) mg/dL Estim Creat Clear Calc Estimated GFR Random Glucose (60-115) mg/dL Calcium (8.4-10.2) mg/dL Magnesium (1.6-2.6) mg/dL Total Bilirubin (0.0-1.0) mg/dL AST (5-31) U/L ALT (0-31) U/L Alkaline Phosphatase (39-117) U/L Troponin I High Sens < 3.5 (<3.5-17.0) ng/L Total Protein (6.5-8.0) g/dL Albumin (3.5-5.0) g/dL Lipase (8-78) U/L Stool Occult Blood NEGATIVE (NEGATIVE) COVID-19 ([place]) (Negative) COVID-19 Clin Com <ERYN Almazan - Last Filed: 12/26/22 16:16> Lab Results 12/26/22 12/26/22 12/26/22 Range/Units 16:46 16:46 16:46 WBC 7.1 (4.8-10.8) X10*3/uL RBC 4.37 (4.20-5.50) X10*6/uL Hgb 9.4 L (12.0-16.0) g/dl Hct 31.9 L (37.0-47.0) % MCV 73.0 L (80.0-98.0) fL MCH 21.5 L (27.0-33.0) pg MCHC 29.5 L (31.0-35.0) g/dl RDW 16.2 H (11.0-16.0) % Plt Count 427 H (160-400) X10*3/uL MPV 8.7 L (9.4-12.3) fL Immature Gran % (Auto) 0.3 (0.0-0.4) % Neut % (Auto) 47.0 (45-73) % Lymph % (Auto) 44.9 H (20-40) % Thomas % (Auto) 7.5 (2-11) % Eos % (Auto) 0.0 (0-4) % Baso % (Auto) 0.3 (0-2) % Lymph # (Auto) 3.2 (1.2-4.9) X10*3/uL Thomas # (Auto) 0.5 (0.1-1.2) X10*3/uL Eos # (Auto) 0.0 (0.0-0.4) X10*3/uL Baso # (Auto) 0.0 (0.0-0.2) X10*3/uL Abs Immat Gran (auto) 0.02 (0.00-0.03) X10*3/uL Absolute Neuts (auto) 3.3 (2.0-8.3) x10*3/uL Absolute Nucleated RBC 0.000 (0.0-0.012) X10*3/uL Nucleated RBC % (auto) 0.0 (0.0-0.2) /100WBC PT (10.0-13.1) SEC INR (0.9-1.1) Sodium 138 (135-145) mmol/L Potassium 4.5 (3.3-5.1) mmol/L Chloride 104 (96-108) mmol/L Carbon Dioxide 29 (22-29) mmol/L Anion Gap 10 L (12-20) BUN 9 (9-16) mg/dL Creatinine 0.82 (0.5-1.4) mg/dL Estim Creat Clear Calc 93.6 Estimated GFR > 60 Random Glucose 133 H (60-115) mg/dL Calcium 9.6 (8.4-10.2) mg/dL Magnesium 2.0 (1.6-2.6) mg/dL Total Bilirubin 0.3 (0.0-1.0) mg/dL AST 15 (5-31) U/L ALT 15 (0-31) U/L Alkaline Phosphatase 88 (39-117) U/L Troponin I High Sens (<3.5-17.0) ng/L Total Protein 7.8 (6.5-8.0) g/dL Albumin 4.1 (3.5-5.0) g/dL Lipase 25 (8-78) U/L Stool Occult Blood (NEGATIVE) COVID-19 ([place]) Negative (Negative) COVID-19 Clin Com See Note 12/26/22 12/26/22 12/26/22 Range/Units 17:44 17:44 17:44 WBC (4.8-10.8) X10*3/uL RBC (4.20-5.50) X10*6/uL Hgb (12.0-16.0) g/dl Hct (37.0-47.0) % MCV (80.0-98.0) fL MCH (27.0-33.0) pg MCHC (31.0-35.0) g/dl RDW (11.0-16.0) % Plt Count (160-400) X10*3/uL MPV (9.4-12.3) fL Immature Gran % (Auto) (0.0-0.4) % Neut % (Auto) (45-73) % Lymph % (Auto) (20-40) % Thomas % (Auto) (2-11) % Eos % (Auto) (0-4) % Baso % (Auto) (0-2) % Lymph # (Auto) (1.2-4.9) X10*3/uL Thomas # (Auto) (0.1-1.2) X10*3/uL Eos # (Auto) (0.0-0.4) X10*3/uL Baso # (Auto) (0.0-0.2) X10*3/uL Abs Immat Gran (auto) (0.00-0.03) X10*3/uL Absolute Neuts (auto) (2.0-8.3) x10*3/uL Absolute Nucleated RBC (0.0-0.012) X10*3/uL Nucleated RBC % (auto) (0.0-0.2) /100WBC PT 11.5 (10.0-13.1) SEC INR 1.0 (0.9-1.1) Sodium (135-145) mmol/L Potassium (3.3-5.1) mmol/L Chloride (96-108) mmol/L Carbon Dioxide (22-29) mmol/L Anion Gap (12-20) BUN (9-16) mg/dL Creatinine (0.5-1.4) mg/dL Estim Creat Clear Calc Estimated GFR Random Glucose (60-115) mg/dL Calcium (8.4-10.2) mg/dL Magnesium (1.6-2.6) mg/dL Total Bilirubin (0.0-1.0) mg/dL AST (5-31) U/L ALT (0-31) U/L Alkaline Phosphatase (39-117) U/L Troponin I High Sens < 3.5 (<3.5-17.0) ng/L Total Protein (6.5-8.0) g/dL Albumin (3.5-5.0) g/dL Lipase (8-78) U/L Stool Occult Blood NEGATIVE (NEGATIVE) COVID-19 ([place]) (Negative) COVID-19 Clin Com <ERYN Salas - Last Filed: 12/26/22 18:58> Independent Interpretation I performed an independent interpretation of an: EKG <ERYN Salas - Last Filed: 12/26/22 18:58> Radiology Impression Discussion of test interpretation with radiology: I have reviewed the radiologist's reading. <ERYN Salas - Last Filed: 12/26/22 18:58> Independent Historian Clinical information obtained from an independent historian. History obtained from or confirmed by: Spouse <ERYN Salas - Last Filed: 12/26/22 18:58> External Record Review External record reviewed: Office record, Outpatient record and Prior outpatient labs <ERYN Salas - Last Filed: 12/26/22 18:58> Discharge Plan Discharge Clinical Impression: Migraine, Lightheadedness, Anemia <ERYN Almazan - Last Filed: 12/26/22 16:16> Patient Disposition: Home, Self-Care <ERYN Almazan - Last Filed: 12/26/22 16:16> Instructions: Migraine Headache (ED), Lightheadedness (ED), Anemia (ED) <ERYN Almazan - Last Filed: 12/26/22 16:16> Additional Instructions: Your blood work was reassuring, however you are anemic please have this c losely monitored by her doctor outpatient, recommend repeat blood work next week. Your x-rays unremarkable. You tested negative for COVID. Your stool was negative for blood If her symptoms persist or worsen, headache becomes persistent/unremitting, you have persistent dizziness, nausea/vomiting or chest pain return to the ED Martin an?lisis de keshav fue tranquilizador, sin embargo, usted est? an?germain, por favor frank que martin m?dico ambulatorio lo controle de cerca, recomiende repetir el an?lisis de keshav la pr?xima semana. Tus radiograf?as sin complicaciones. Usted sandy negativo para COVID. Martin materia fecal fue negativa para keshav Si lillian s?ntomas persisten o empeoran, el dolor de shemar se vuelve persistente/incesante, tiene mareos persistentes, n?useas/v?mitos o dolor en el pecho, regrese al servicio de urgencias. <ERYN Almazan - Last Filed: 12/26/22 16:16> Prescriptions: No Action oxycodone-acetaminophen 5-325 mg tablet 1 tab PO Q8H PRN (Reason: pain) Qty: 21 0RF oxycodone-acetaminophen [Percocet] 5-325 mg tablet 1 tab PO Q8H PRN (Reason: pain (scale score 4-6)) 7 Days Qty: 21 0RF oxycodone-acetaminophen 5-325 mg tablet 1 tab PO BID PRN (Reason: pain) 7 Days Qty: 14 0RF cetirizine 10 mg tablet 1 tab PO DAILY omeprazole 20 mg capsule,delayed release(DR/EC) 1 cap PO DAILY topiramate 50 mg tablet 1 tab PO DAILY ibuprofen 800 mg tablet 1 tab PO QID PRN (Reason: Pain) oxycodone [OxyContin] 10 mg tablet,oral only,ext.rel.12 hr 10 mg PO Q12H 3 Days Qty: 6 0RF <ERYN Almazan - Last Filed: 12/26/22 16:16> Referrals: [facility] [Primary Care Provider] - 2 days <ERYN Almazan - Last Filed: 12/26/22 16:16> Print Language: Mohawk <ERYN Almazan - Last Filed: 12/26/22 16:16>
[2022-12-26 16:50] LABS: MANUAL DIFF FLAG NO
[2022-12-26 16:53] LABS: Basophils Percent Auto 0.3 % (0-2); Hematocrit 31.9 % (37.0-47.0); Hemoglobin 9.4 g/dl (12.0-16.0); Imm Gran Abs Auto 0.02 X10*3/uL (0.00-0.03); Imm Gran Pct Auto 0.3 % (0.0-0.4); Lymphocytes Absolute Auto 3.2 X10*3/uL (1.2-4.9); Lymphocytes Percent Auto 44.9 % (20-40); Mean Corpuscular HGB Conc 29.5 g/dl (31.0-35.0); Mean Corpuscular Hemoglobin 21.5 pg (27.0-33.0); Mean Platelet Volume 8.7 fL (9.4-12.3); Monocytes Absolute Auto 0.5 X10*3/uL (0.1-1.2); Monocytes Percent Auto 7.5 % (2-11); Neutrophils Absolute Auto 3.3 x10*3/uL (2.0-8.3); Platelet Count 427 X10*3/uL (160-400); Red Blood Count 4.37 X10*6/uL (4.20-5.50); Red Cell Distribution Width 16.2 % (11.0-16.0); White Blood Count 7.1 X10*3/uL (4.8-10.8)
[2022-12-26 17:07] LABS: Alanine Aminotransferase 15 U/L (0-31); Albumin Level 4.1 g/dL (3.5-5.0); Alkaline Phosphatase 88 U/L (39-117); Anion Gap 10 (12-20); Aspartate Amino Transferase 15 U/L (5-31); Bilirubin Total 0.3 mg/dL (0.0-1.0); Blood Urea Nitrogen 9 mg/dL (9-16); COVID-19 Test Negative (Negative); Calcium 9.6 mg/dL (8.4-10.2); Carbon Dioxide 29 mmol/L (22-29); Chloride 104 mmol/L (96-108); Creatinine Clr Calc Pharmacy 93.6; Estimated Glomerular Filt Rate > 60; Glucose Random 133 mg/dL (60-115); IDNOW Serial# BCCEAD1C; Potassium 4.5 mmol/L (3.3-5.1); Sodium 138 mmol/L (135-145); Total Protein 7.8 g/dL (6.5-8.0)
--- NOTE | 2022-12-26 17:18 | ECG_ITS ---
Test Reason : DIZZINESS Blood Pressure : / mmHG Vent. Rate : 061 BPM Atrial Rate : 061 BPM P-R Int : 132 ms QRS Dur : 082 ms QT Int : 438 ms P-R-T Axes : 063 054 056 degrees QTc Int : 440 ms Normal sinus rhythm Normal ECG No previous ECGs available Referred By: Billie Do Electronically Signed By:TEETEE BROWN
[2022-12-26 17:58] LABS: OBS Int Ctl Valid YES; OBS1 NEGATIVE (NEGATIVE)
[2022-12-26 17:59] LABS: Lipase 25 U/L (8-78)
[2022-12-26 18:03] LABS: Prothrombin Time 11.5 SEC (10.0-13.1)
[2022-12-26 18:20] LABS: Troponin-I High Sensitivity < 3.5 ng/L (<3.5-17.0)
[2022-12-26] MEDS: Meclizine HCl 25 MG TABLET PO (18:21)
[2022-12-26] MEDS: Butalb/Acetamin/Caff 50/325/40 TABLET 2 TAB PO (18:21)
[2022-12-26 18:32] VITALS: BP 136/60; PULSE 54
[2022-12-26 18:33] VITALS: BP 131/68; PULSE 64
[2022-12-26 18:34] VITALS: BP 121/73; PULSE 64
[2022-12-26] MEDS: LORazepam 0.5 MG TABLET PO (19:20)
[2022-12-26] MEDS: diphenhydrAMINE HCL 25 MG CAPSULE PO (19:20)
--- NOTE | 2022-12-26 19:22 | PC.NURSE ---
medicated per provider order
== END 2022-12-26 21:12 | disposition home or self-care (01) ==
PROVIDERS: Physician Assistant; Physician Assistant Medical; Emergency Provider Emergency Medicine Emergency Medical Services
DX: G43.909 Migraine, unspecified, not intractable, without status migrainosus (principal); R07.89 Other chest pain; R42 Dizziness and giddiness; D64.9 Anemia, unspecified; Z20.822 Contact with and (suspected) exposure to COVID-19; Z20.828 Contact with and (suspected) exposure to other viral communicable diseases; Z79.899 Other long term (current) drug therapy
CPT/HCPCS: 36415; 71045; 80053; 82272; 83690; 83735; 84484; 85025; 85610; 87635; 93005; 99283; 99284

== ENCOUNTER 2023-02-25 11:46 | Emergency (ER) | payer MEDICAID, SELFPAY ==
[2023-02-25 11:49] VITALS: BP 135/71; PULSE 95; RESP 18; TEMP 36.9; O2SAT 99; BMI 34.2
--- NOTE | 2023-02-25 11:54 | ED_ITS ---
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 Patient states that over the last few months she has had pain in all of her joints, particularly in her fingers. Patient denies any dizziness, lightheadedness, abdominal pain, nausea, vomiting, fever, chills, weight loss, weight gain, blurry vision, double vision, loss of vision, chest pain, difficulty breathing, shortness of breath, back pain, night sweats, pain with urination, increased urinary frequency, increased urinary urgency, blood in her urine or stool, syncope or a near syncopal episode, recent trauma or falls, bowel incontinence, bladder incontinence, bowel retention, bladder retention, or any other complaints at this time. <ERYN Almazan - Last Filed: 02/25/23 15:36> Onset (ago): month(s) <ERYN Almazan Last Filed: 02/25/23 15:36> Severity: mild <EYRN Almazan Last Filed: 02/25/23 15:36> Severity scale (1-10): 2 <ERYN Almazan Last Filed: 02/25/23 15:36> Quality: aching <ERYN Almazan Last Filed: 02/25/23 15:36> Pain Consistency: constant <ERYN Almazan Last Filed: 02/25/23 15:36> Relieving factors: none <ERYN Almazan - Last Filed: 02/25/23 15:36> Exacerbating factors: none <ERYN Almazan Last Filed: 02/25/23 15:36> Associated symptoms: denies other symptoms <ERYN Almazan - Last Filed: 02/25/23 15:36> Treatments prior to arrival: none <ERYN Almazan - Last Filed: 02/25/23 15:36> Related Data Home medications: Home Medications Medication Instructions Recorded Confirmed cetirizine 10 mg tablet 1 tab PO DAILY 01/09/21 01/09/21 ibuprofen 800 mg tablet 1 tab PO QID PRN Pain 01/09/21 01/16/21 omeprazole 20 mg capsule,delayed 1 cap PO DAILY 01/09/21 01/09/21 release topiramate 50 mg tablet 1 tab PO DAILY headache 01/09/21 01/09/21 Previous Rx's Medication Instructions Recorded oxycodone 10 mg tablet,crush 10 mg PO Q12H 3 days #6 tabs 01/16/21 resistant,extended release 12 hr (OxyContin) oxycodone-acetaminophen 5 mg-325 1 tab PO Q8H PRN pain #21 tabs 01/29/21 mg tablet oxycodone-acetaminophen 5 mg-325 1 tab PO Q8H PRN pain (scale score 02/07/ mg tablet (Percocet) 4-6) 7 days #21 tabs oxycodone-acetaminophen 5 mg-325 1 tab PO BID PRN pain 7 days #14 02/21/21 mg tablet tabs prednisone 20 mg tablet 20 mg PO DAILY 7 days #7 tabs 02/25/23 <ERYN Polo - Last Filed: 02/25/23 11:55> Allergies/adverse reactions: Allergies Allergy/AdvReac Type Severity Reaction Status Date / Time penicillin G [PENICILLIN G] Allergy Unknown ANAPHYLAXIS Verified 02/25/23 11:53 shrimp Allergy Anaphylaxis Verified 02/25/23 11:54 <ERYN Polo Last Filed: 02/25/23 11:55> Review of Systems Constitutional: Constitutional: Reports no additional constitutional complaint s, Denies chills, Denies fever(s) and Denies night sweats <ERYN Almazan Last Filed: 02/25/23 15:36> Eyes: Eyes: Reports no additional eye complaints, Denies blurry vision, Denies change in vision, Denies diplopia, Denies eye discharge, Denies loss of vision and Denies eye pain <ERYN Almazan Last Filed: 02/25/23 15:36> ENT: Denies dizziness <ERYN Almazan Last Filed: 02/25/23 15:36> Cardiovascular: Cardiovascular: Reports no additional cardiovascular complaints, Denies chest pain, Denies lightheadedness, Denies Loss of Consciousness and Denies dyspnea <ERYN Almazan Last Filed: 02/25/23 15:36> Respiratory: Respiratory: Reports no additional respiratory complaints and Denies dyspnea <ERYN Almazan Last Filed: 02/25/23 15:36> Gastrointestinal: Gastrointestinal: Reports no additional gastrointestinal complaints, Denies abdominal pain, Denies melena, Denies hematochezia, Denies change in bowel habits and Denies change in stool character <ERYN Almazan Last Filed: 02/25/23 15:36> Genitourinary: Genitourinary: Denies hematuria, Denies urinary frequency, Denies dysuria, Denies urinary incontinence, Denies urinary hesitancy and Denies urinary urgency <ERYN Almazan Last Filed: 02/25/23 15:36> Musculoskeletal: Musculoskeletal: Reports no additional musculoskeletal complaints, Reports arthralgias, Denies numbness and Denies tingling <ERYN Almazan Last Filed: 02/25/23 15:36> Neurologic: Denies dizziness, Denies loss of vision, Denies numbness and Denies tingling <ERYN Almazan Last Filed: 02/25/23 15:36> Psychiatric: Psychiatric: Reports no additional psychiatric complaints <ERYN Almazan Last Filed: 02/25/23 15:36> Endocrine: Endocrine: Reports no additional endocrine complaints <ERYN Almazan Last Filed: 02/25/23 15:36> Hematologic/Lymphatic: Hematologic/Lymphatic: Reports no additional hematologic/lymphatic complaints <ERYN Almazan Last Filed: 02/25/23 15:36> Allergic/Immunologic: Allergic/Immunologic: Reports no additional allergic/immunologic complaints <ERYN Almazan - Last Filed: 02/25/23 15:36> [facility] Past Medical History Attestation statement: The following information was validated with the patient. <ERYN Almazan - Last Filed: 02/25/23 15:36> Source: old records reviewed and nursing notes reviewed <ERYN Almazan - Last Filed: 02/25/23 15:36> Medical History: Medical History Allergies GERD (gastroesophageal reflux disease) Headache <ERYN Polo - Last Filed: 02/25/23 11:55> Surgical History: Surgical History History of tubal ligation Hx of tonsillectomy <ERYN Polo - Last Filed: 02/25/23 11:55> Family History Family History: Family History Mother No problems noted. Father No problems noted. 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 <ERYN Polo - Last Filed: 02/25/23 11:55> Physical Exam ED Vital Signs: Vital Signs - 24 hr 02/25/23 11:49 Temperature 98.5 F Pulse Rate 95 Respiratory Rate 18 Blood Pressure 135/71 Pulse Oximetry 99 Oxygen Delivery Method Room Air BMI result Body Mass Index 34.2 <ERYN Polo - Last Filed: 02/25/23 11:55> Vital Signs - 24 hr 02/25/23 11:49 Temperature 98.5 F Pulse Rate 95 Respiratory Rate 18 Blood Pressure 135/71 Pulse Oximetry 99 Oxygen Delivery Method Room Air BMI result Body Mass Index 34.2 <Danette Mairegina [facility] Last Filed: 02/25/23 15:36> Const General: cooperative, no acute distress, alert and awake <ERYN Almazan Wi st Filed: 02/25/23 15:36> Nutritional Appearance: well nourished <Danette MaiERYN tapia Last Filed: 02/25/23 15:36> Orientation/consciousness: patient oriented x3 <Danette Bond [facility] Last Filed: 02/25/23 15:36> Limitations: no limitations <Danette Mairegina [facility] Last Filed: 02/25/23 15:36> HENMT Head: Yes normal to inspection and Yes atraumatic <Danettealona Mairegina [place] - Last Filed: 02/25/23 15:36> Ears: hearing grossly normal bilaterally and external ears normal <Danette Bond [facility] Last Filed: 02/25/23 15:36> General nose exam: Normal external nose present, no nasal discharge noted and no epistaxis <Danette Bond, [facility] Last Filed: 02/25/23 15:36> Face and sinus: Yes normal facial exam, No abrasion and No laceration <Danette Mairegina [facility] Last Filed: 02/25/23 15:36> Mouth: Normal oral and palatal mucosa present, no drooling and no muffled voice <Danette Mairegina NC - Last Filed: 02/25/23 15:36> Eyes General: appearance normal, both eyes and all related structures <ERYN Almazan Last Filed: 02/25/23 15:36> Periorbital: periorbital findings normal <Danettealona Maiergina [facility] Last Filed: 02/25/23 15:36> Eyelids: Yes eyelids normal <Danettealona Mairegina NC - Last Filed: 02/25/23 15:36> Conjunctivae: conjunctivae normal <Danette Varun NC - Last Filed: 02/25/23 15:36> Pupils: Equal, round and reactive pupils present <Danette ERYN Bond Last Filed: 02/25/23 15:36> EOM: EOMs intact bilaterally <Danette Bond NC - Last Filed: 02/25/23 15:36> Neck Neck: Yes normal visual inspection, Yes full ROM and Yes no lymphadenopathy <Danette Bond NC - Last Filed: 02/25/23 15:36> Chest Chest palpation & inspection: normal inspection of the chest <Danette Bond ERYN - Last Filed: 02/25/23 15:36> Resp Effort & Inspection: normal respiratory effort and able to speak in complete sentences <Danette Bond NC - Last Filed: 02/25/23 15:36> Auscultation: clear to auscultation bilaterally <Danette Bond NC - Last Filed: 02/25/23 15:36> Cardio Rate: regular rate <Danette Bond NC - Last Filed: 02/25/23 15:36> Rhythm: regular rhythm <ERYN Almazan - Last Filed: 02/25/23 15:36> GI Inspection: Yes normal to inspection <Danette Bond NC - Last Filed: 02/25/23 15:36> Neuro General: patient oriented x3 and moves all extremities <Danette Bond NC - Last Filed: 02/25/23 15:36> Cranial nerves: Yes Equal, round and reactive pupils present <Danette Bond NC - Last Filed: 02/25/23 15:36> Cognition (Neuro): normal cognition <Danette Bond ERYN - Last Filed: 02/25/23 15:36> Motor exam (neuro): 5/5 motor strength present throughout <Danette Bond NC - Last Filed: 02/25/23 15:36> Sensory Exam: Normal double simultaneous stimulation for sensation <Danette Bond NC - Last Filed: 02/25/23 15:36> Coordination: [id number] test normal <Danette Bond NC - Last Filed: 02/25/23 15:36> Extrem General: Yes normal to inspection, Yes full ROM and Yes capillary refill normal <Danette Bond ERYN - Last Filed: 02/25/23 15:36> Psych Appearance: grossly normal <Danette Bond PA - Last Filed: 02/25/23 15:36> Mental Status: mental status grossly normal <Danette Bond ERYN - Last Filed: 02/25/23 15:36> Affect: normal affect <ERYN Almazan - Last Filed: 02/25/23 15:36> Attitude: cooperative <ERYN Almazan - Last Filed: 02/25/23 15:36> Thought process: Normal thought process present <ERYN Almazan Last Filed: 02/25/23 15:36> Thought content: Normal thought content present <ERYN Almazan Last Filed: 02/25/23 15:36> Insight: Good insight present (Psych) <ERYN Almazan - Last Filed: 02/25/23 15:36> Course Course Course Narrative: This is an RME: Additional HPI, ROS, PE not included below will be deferred to primary provider. 47 year old female presents w/ joint pain all over X few months. Told to come in by PCP for basic work up. PE benign. VSS Plan- basic labs <ERYN Polo - Last Filed: 02/25/23 11:55> Medical Decision Making Medical Decision Making [facility] Narrative: Patient is a 47 year old assigned female at with no reported medical history presenting to the emergency department today with diffuse joint pain. Patient's physical exam was unremarkable. Patient's blood work showed a slightly elevated CRP but was otherwise unremarkable. I explained my physical exam findings as well as all test results to the patient. I answered all questions asked by the patient. I stressed the importance of the patient taking her medication as prescribed. I stressed the importance of the patient following up with her primary care provider and a band saw operator. I stressed the importance of the patient returning to the emergency department immediately if her symptoms were to worsen or if she were to develop any dizziness, shortness of breath, difficulty breathing, chest pain, blurry vision, loss of vision, nausea, vomiting, abdominal pain, fever, chills, back pain, or any other complaints. Patient verbalized agreement and understanding with this treatment plan and d ischarge. <ERYN Almazan Last Filed: 02/25/23 15:36> Differential Diagnosis Differential Diagnoses: The differential diagnosis associated with the presentation includes <ERYN Le Last Filed: 02/25/23 15:36> joint pain <ERYN Almazan Last Filed: 02/25/23 15:36> Lab Data [facility] Lab Attestation statement: I reviewed the patient's lab results. <ERYN Almazan - Last Filed: 02/25/23 15:36> Result Diagrams: 02/25/23 12:02 02/25/23 12:02 <ERYN Polo - Last Filed: 02/25/23 11:55> Labs: Lab Results 02/25/23 02/25/23 02/25/23 Range/Units 12:02 12:02 12:02 WBC 7.9 (4.8-10.8) X10*3/uL RBC 4.49 (4.20-5.50) X10*6/uL Hgb 11.1 L (12.0-16.0) g/dl Hct 36.4 L (37.0-47.0) % MCV 81.1 (80.0-98.0) fL MCH 24.7 L (27.0-33.0) pg MCHC 30.5 L (31.0-35.0) g/dl RDW 22.0 H (11.0-16.0) % Plt Count 339 (160-400) X10*3/uL MPV 9.5 (9.4-12.3) fL Immature Gran % (Auto) 0.3 (0.0-0.4) % Neut % (Auto) 63.5 (45-73) % Lymph % (Auto) 30.5 (20-40) % [place] % (Auto) 5.6 (2-11) % Eos % (Auto) 0.0 (0-4) % Baso % (Auto) 0.1 (0-2) % Lymph # (Auto) 2.4 (1.2-4.9) X10*3/uL [place] # (Auto) 0.4 (0.1-1.2) X10*3/uL Eos # (Auto) 0.0 (0.0-0.4) X10*3/uL Baso # (Auto) 0.0 (0.0-0.2) X10*3/uL Abs Immat Gran (auto) 0.02 (0.00-0.03) X10*3/uL Absolute Neuts (auto) 5.0 (2.0-8.3) x10*3/uL Absolute Nucleated RBC 0.000 (0.0-0.012) X10*3/uL Nucleated RBC % (auto) 0.0 (0.0-0.2) /100WBC ESR 16 (0-20) MM/HR Sodium 138 (135-145) mmol/L Potassium 4.0 (3.3-5.1) mmol/L Chloride 105 (96-108) mmol/L Carbon Dioxide 24 (22-29) mmol/L Anion Gap 13 (12-20) BUN 12 (9-16) mg/dL Creatinine 0.83 (0.5-1.4) mg/dL Estim Creat Clear Calc 95.6 Estimated GFR > 60 Random Glucose 240 H (60-115) mg/dL Calcium 9.3 (8.4-10.2) mg/dL Total Bilirubin 0.4 (0.0-1.0) mg/dL AST 14 (5-31) U/L ALT 16 (0-31) U/L Alkaline Phosphatase 89 (39-117) U/L C-Reactive Protein 1.04 H (< or = 0.50) mg/dL Total Protein 7.5 (6.5-8.0) g/dL Albumin 4.1 (3.5-5.0) g/dL <ERYN Polo - Last Filed: 02/25/23 11:55> Lab Results 02/25/23 02/25/23 02/25/23 Range/Units 12:02 12:02 12:02 WBC 7.9 (4.8-10.8) X10*3/uL RBC 4.49 (4.20-5.50) X10*6/uL Hgb 11.1 L (12.0-16.0) g/dl Hct 36.4 L (37.0-47.0) % MCV 81.1 (80.0-98.0) fL MCH 24.7 L (27.0-33.0) pg MCHC 30.5 L (31.0-35.0) g/dl RDW 22.0 H (11.0-16.0) % Plt Count 339 (160-400) X10*3/uL MPV 9.5 (9.4-12.3) fL Immature Gran % (Auto) 0.3 (0.0-0.4) % Neut % (Auto) 63.5 (45-73) % Lymph % (Auto) 30.5 (20-40) % [place] % (Auto) 5.6 (2-11) % Eos % (Auto) 0.0 (0-4) % Baso % (Auto) 0.1 (0-2) % Lymph # (Auto) 2.4 (1.2-4.9) X10*3/uL [place] # (Auto) 0.4 (0.1-1.2) X10*3/uL Eos # (Auto) 0.0 (0.0-0.4) X10*3/uL Baso # (Auto) 0.0 (0.0-0.2) X10*3/uL Abs Immat Gran (auto) 0.02 (0.00-0.03) X10*3/uL Absolute Neuts (auto) 5.0 (2.0-8.3) x10*3/uL Absolute Nucleated RBC 0.000 (0.0-0.012) X10*3/uL Nucleated RBC % (auto) 0.0 (0.0-0.2) /100WBC ESR 16 (0-20) MM/HR Sodium 138 (135-145) mmol/L Potassium 4.0 (3.3-5.1) mmol/L Chloride 105 (96-108) mmol/L Carbon Dioxide 24 (22-29) mmol/L Anion Gap 13 (12-20) BUN 12 (9-16) mg/dL Creatinine 0.83 (0.5-1.4) mg/dL Estim Creat Clear Calc 95.6 Estimated GFR > 60 Random Glucose 240 H (60-115) mg/dL Calcium 9.3 (8.4-10.2) mg/dL Total Bilirubin 0.4 (0.0-1.0) mg/dL AST 14 (5-31) U/L ALT 16 (0-31) U/L Alkaline Phosphatase 89 (39-117) U/L C-Reactive Protein 1.04 H (< or = 0.50) mg/dL Total Protein 7.5 (6.5-8.0) g/dL Albumin 4.1 (3.5-5.0) g/dL <ERYN Almazan - Last Filed: 02/25/23 15:36> Discharge Plan Discharge Clinical Impression: Joint pain <ERYN Polo Last Filed: 02/25/23 11:55> Patient Disposition: Home, Self-Care <ERYN Polo Last Filed: 02/25/23 11:55> Instructions: Arthralgia (ED) <ERYN Polo Last Filed: 02/25/23 11:55> Additional Instructions: Follow up with your primary care provider and a band saw operator. Return to the emergency department immediately if your symptoms worsen or if you develop any dizziness, shortness of breath, difficulty breathing, chest pain, blurry vision, loss of vision, nausea, vomiting, abdominal pain, fever, chills, back pain, or any other complaints. Heri un seguimiento con wyatt proveedor de atenci?n primaria y un reumat?logo. Regrese al departamento de emergencias de inmediato si lillian s?ntomas empeoran o si presenta mareos, falta de aire, dificultad para respirar, dolor de pecho, visi?n borrosa, p?rdida de la visi?n, n?useas, v?mitos, dolor abdominal, fiebre, escalofr?os, dolor de espalda o cualquier otras quejas. <ERYN Polo Last Filed: 02/25/23 11:55> Prescriptions: New prednisone 20 mg tablet 20 mg PO DAILY 7 Days Qty: 7 0RF No Action oxycodone-acetaminophen 5-325 mg tablet 1 tab PO Q8H PRN (Reason: pain) Qty: 21 0RF oxycodone-acetaminophen [Percocet] 5-325 mg tablet 1 tab PO Q8H PRN (Reason: pain (scale score 4-6)) 7 Days Qty: 21 0RF oxycodone-acetaminophen 5-325 mg tablet 1 tab PO BID PRN (Reason: pain) 7 Days Qty: 14 0RF cetirizine 10 mg tablet 1 tab PO DAILY omeprazole 20 mg capsule,delayed release(DR/EC) 1 cap PO DAILY topiramate 50 mg tablet 1 tab PO DAILY ibuprofen 800 mg tablet 1 tab PO QID PRN (Reason: Pain) oxycodone [OxyContin] 10 mg tablet,oral only,ext.rel.12 hr 10 mg PO Q12H 3 Days Qty: 6 0RF <ERNY Polo - Last Filed: 02/25/23 11:55> Referrals: [facility] [place] Rheumatology Service [Provider Group] (Call to establish and follow up with a band saw operator. Llame para establecer y hacer un seguimiento con josué reumat?loga.) [facility] [Primary Care Provider] - <ERYN Polo - Last Filed: 02/25/23 11:55> Stand Alone Forms: Work/School Release <ERYN Polo - Last Filed: 02/25/23 11:55> Interventions: ED Discharge Assessment Last Done: 02/25/23 13:18 <ERYN Polo - Last Filed: 02/25/23 11:55> Discharge Date/Time: 02/25/23 13:18 <ERYN Polo - Last Filed: 02/25/23 11:55> Print Language: Cape Verdean <ERYN Polo - Last Filed: 02/25/23 11:55>
[2023-02-25 12:07] LABS: MANUAL DIFF FLAG NO
[2023-02-25 12:09] LABS: Basophils Percent Auto 0.1 % (0-2); Hematocrit 36.4 % (37.0-47.0); Hemoglobin 11.1 g/dl (12.0-16.0); Imm Gran Abs Auto 0.02 X10*3/uL (0.00-0.03); Imm Gran Pct Auto 0.3 % (0.0-0.4); Lymphocytes Absolute Auto 2.4 X10*3/uL (1.2-4.9); Lymphocytes Percent Auto 30.5 % (20-40); Mean Corpuscular HGB Conc 30.5 g/dl (31.0-35.0); Mean Corpuscular Hemoglobin 24.7 pg (27.0-33.0); Mean Corpuscular Volume 81.1 fL (80.0-98.0); Mean Platelet Volume 9.5 fL (9.4-12.3); Monocytes Absolute Auto 0.4 X10*3/uL (0.1-1.2); Monocytes Percent Auto 5.6 % (2-11); Neutrophils Percent Auto 63.5 % (45-73); Platelet Count 339 X10*3/uL (160-400); Red Blood Count 4.49 X10*6/uL (4.20-5.50); White Blood Count 7.9 X10*3/uL (4.8-10.8)
[2023-02-25 12:22] LABS: Alanine Aminotransferase 16 U/L (0-31); Albumin Level 4.1 g/dL (3.5-5.0); Alkaline Phosphatase 89 U/L (39-117); Anion Gap 13 (12-20); Aspartate Amino Transferase 14 U/L (5-31); Bilirubin Total 0.4 mg/dL (0.0-1.0); Blood Urea Nitrogen 12 mg/dL (9-16); C Reactive Protein 1.04 mg/dL (< or = 0.50); Calcium 9.3 mg/dL (8.4-10.2); Carbon Dioxide 24 mmol/L (22-29); Chloride 105 mmol/L (96-108); Creatinine Clr Calc Pharmacy 95.6; Estimated Glomerular Filt Rate > 60; Glucose Random 240 mg/dL (60-115); Sodium 138 mmol/L (135-145); Total Protein 7.5 g/dL (6.5-8.0)
[2023-02-25 12:58] LABS: Erythrocyte Sedimentation Rate 16 MM/HR (0-20)
[2023-02-27 23:48] LABS: A. Phagocytphilium DNA,RT-PCR NOT DETECTED (NOT DETECTED); Babesia Microti DNA, RT-PCR NOT DETECTED (NOT DETECTED); Borrelia Miyamotoi,DNA RT-PCR NOT DETECTED (NOT DETECTED); E.Chaffeensis DNA RT-PCR NOT DETECTED (NOT DETECTED); Lyme(Borrelia ssp)DNA RT-PCR NOT DETECTED (NOT DETECTED)
== END 2023-02-25 13:18 | disposition home or self-care (01) ==
PROVIDERS: Physician Assistant; Physician Assistant Medical; Emergency Provider Emergency Medicine
DX: M79.10 Myalgia, unspecified site (principal); Z79.899 Other long term (current) drug therapy
CPT/HCPCS: 36415; 80053; 85025; 85652; 86140; 87798; 87801; 99282; 99283

== ENCOUNTER 2023-03-17 12:30 | Emergency (ER) | payer MEDICAID, SELFPAY ==
--- NOTE | ~2023-03-17 | CT_ITS ---
EXAMINATION: CT ABDOMEN AND PELVIS WITHOUT CONTRAST CLINICAL INFORMATION: Pain. COMPARISON: None available. TECHNIQUE: Multidetector volumetric imaging was performed from the superior aspect of the liver through the pubic symphysis. Sagittal and coronal reformatted images were obtained on the technologist's workstation. This CT examination was performed using dose optimization techniques as appropriate, variously including the following: *Automated exposure control *Adjustment of mA and/or kV according to patient size (this includes techniques or standardized protocols for targeted exams where dose is matched to indication/reason for exam; i.e. extremities or head) *Use of iterative reconstruction technique DLP: 862 mGy-cm FINDINGS: LUNG BASES: There is a 4 mm calcified nodule right middle lobe axial image 01/06.. LIVER, GALLBLADDER, AND BILIARY TREE: The liver is normal in size, shape, and attenuation. No focal hepatic lesion or biliary ductal dilatation is present. The gallbladder is unremarkable with no evidence of radiopaque gallstones, gallbladder wall thickening, or obvious pericholecystic inflammatory changes. PANCREAS: Unremarkable. SPLEEN: Unremarkable. ADRENAL GLANDS: Unremarkable. KIDNEYS AND URETERS: The kidneys are normal in size, shape, and attenuation. There is a 5 mm radiopaque stone right lower lobe without caliectasis. It is an 9 cm from the posterior skin line. No additional radiopaque calculi seen. There is no hydronephrosis. Several phleboliths are seen in the pelvis. BLADDER: Unremarkable. GASTROINTESTINAL TRACT: There is scattered stool and gas seen throughout the colon without distention. There is residual oral contrast in the ascending colon. Appendix is normal caliber. No free air or free fluid seen. ABDOMINAL WALL: No significant hernia is appreciated. LYMPH NODES: Normal. VASCULAR: Unremarkable. PELVIC VISCERA: The uterus is anteverted and appears unremarkable. There is a 1.8 cm right ovarian cyst. There are phleboliths in the pelvis. OSSEOUS STRUCTURES: Unremarkable. CT/CT abdomen pelvis wo IV con IMPRESSION: No acute intra-abdominal process seen 1.8 cm right ovarian cyst. Nonobstructive radiopaque calculi right kidney Fleischner guidelines were followed.
--- NOTE | 2023-03-17 13:11 | ED.ABDPAIN ---
HPI - Abdominal Pain General Stated Complaint: Dizzy Abdominal Pain Related Data Home Medications Medication Instructions Recorded Confirmed cetirizine 10 mg tablet 1 tab PO DAILY 01/09/21 01/09/21 ibuprofen 800 mg tablet 1 tab PO QID PRN Pain 01/09/21 01/16/21 omeprazole 20 mg capsule,delayed 1 cap PO DAILY 01/09/21 01/09/21 release topiramate 50 mg tablet 1 tab PO DAILY headache 01/09/21 01/09/21 Previous Rx's Medication Instructions Recorded oxycodone 10 mg tablet,crush 10 mg PO Q12H 3 days #6 tabs 01/16/21 resistant,extended release 12 hr (OxyContin) oxycodone-acetaminophen 5 mg-325 1 tab PO Q8H PRN pain #21 tabs 01/29/21 mg tablet oxycodone-acetaminophen 5 mg-325 1 tab PO Q8H PRN pain (scale score 02/07/21 mg tablet (Percocet) 4-6) 7 days #21 tabs oxycodone-acetaminophen 5 mg-325 1 tab PO BID PRN pain 7 days #14 02/21/21 mg tablet tabs prednisone 20 mg tablet 20 mg PO DAILY 7 days #7 tabs 02/25/23 Allergies Allergy/AdvReac Type Severity Reaction Status Date / Time penicillin G [PENICILLIN G] Allergy Unknown ANAPHYLAXIS Verified 02/25/23 11:53 shrimp Allergy Anaphylaxis Verified 02/25/23 11:54 [facility] Past Medical History Medical History Allergies GERD (gastroesophageal reflux disease) Headache Surgical History History of tubal ligation Hx of tonsillectomy Family History Family History Mother No problems noted. Father No problems noted. 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 Deferred additional HPI, ROS, PE to primary provider. 47-year-old female with a past medical history of GERD, migraines here with complaints of dizziness, ears are ringing, abdominal pain, diarrhea, headache since Thursday. No vomiting, fever. Being worked up for lupus by rheumatology-has not had formal diagnosis. VSS Discharge Plan Discharge Prescriptions: No Action oxycodone-acetaminophen 5-325 mg tablet 1 tab PO Q8H PRN (Reason: pain) Qty: 21 0RF oxycodone-acetaminophen [Percocet] 5-325 mg tablet 1 tab PO Q8H PRN (Reason: pain (scale score 4-6)) 7 Days Qty: 21 0RF oxycodone-acetaminophen 5-325 mg tablet 1 tab PO BID PRN (Reason: pain) 7 Days Qty: 14 0RF cetirizine 10 mg tablet 1 tab PO DAILY omeprazole 20 mg capsule,delayed release(DR/EC) 1 cap PO DAILY topiramate 50 mg tablet 1 tab PO DAILY ibuprofen 800 mg tablet 1 tab PO QID PRN (Reason: Pain) oxycodone [OxyContin] 10 mg tablet,oral only,ext.rel.12 hr 10 mg PO Q12H 3 Days Qty: 6 0RF prednisone 20 mg tablet 20 mg PO DAILY 7 Days Qty: 7 0RF
[2023-03-17 13:14] VITALS: BP 119/81; PULSE 77; RESP 18; TEMP 36.5; O2SAT 98; BMI 34.1
--- NOTE | 2023-03-17 13:16 | ECG_ITS ---
Test Reason : DIZZINESS Blood Pressure : / mmHG Vent. Rate : 074 BPM Atrial Rate : 074 BPM P-R Int : 134 ms QRS Dur : 078 ms QT Int : 406 ms P-R-T Axes : 040 029 034 degrees QTc Int : 450 ms Normal sinus rhythm Nonspecific T wave abnormality Abnormal ECG When compared to the previous EKG of No significant changes seen Referred By: Joy Gomez Electronically Signed By:Ezra Andersen
--- NOTE | 2023-03-17 13:49 | PC.NURSE ---
patient a&ox3, pt c/o headache as well as mid abd pain with pain ranging from 6-8/10 pain, tech in room drawing labs, will perform orthostats when labs completed, provider at bedside/family at bedside, call james within reach, will continue to monitor.
[2023-03-17 14:05] VITALS: BP 130/67; PULSE 64
[2023-03-17 14:07] LABS: MANUAL DIFF FLAG NO
--- NOTE | 2023-03-17 14:07 | ED.GENADULT ---
HPI - General Adult General Chief complaint: General Medical Stated complaint: Dizzy Abdominal Pain Time Seen by Provider: 03/17/23 13:44 Source: patient, family and old records reviewed History of Present Illness HPI narrative: Patient with 4 days of ringing in her ears and dizziness. And 2 days of abdominal pain and diarrhea. Patient has a recent history of diffuse joint pain and swelling for which she has been worked up by her PCP. She is apparently had a positive ARIANA titer drawn. She has not yet seen rheumatology. She has been having ringing in her ears and dizziness intermittently over the past 3 years. Typically lasting several days at a time. She takes meclizine for this. She states she has been diagnosed with vertigo. She has not seen ENT for this. The diarrhea is a new complaint. She states she has had multiple episodes of yellow watery diarrhea. Difficulty eating and drinking because of nausea made worse by the dizziness. No blood in the stool. No sick contacts with diarrhea that she is aware of. No other new symptoms. Related Data Home Medications Medication Instructions Recorded Confirmed cetirizine 10 mg tablet 1 tab PO DAILY 01/09/21 01/09/21 ibuprofen 800 mg tablet 1 tab PO QID PRN Pain 01/09/21 01/16/21 omeprazole 20 mg capsule,delayed 1 cap PO DAILY 01/09/21 01/09/21 release topiramate 50 mg tablet 1 tab PO DAILY headache 01/09/21 01/09/21 Previous Rx's Medication Instructions Recorded oxycodone 10 mg tablet,crush 10 mg PO Q12H 3 days #6 tabs 01/16/21 resistant,extended release 12 hr (OxyContin) oxycodone-acetaminophen 5 mg-325 1 tab PO Q8H PRN pain #21 tabs 01/29/21 mg tablet oxycodone-acetaminophen 5 mg-325 1 tab PO Q8H PRN pain (scale score 02/07/21 mg tablet (Percocet) 4-6) 7 days #21 tabs oxycodone-acetaminophen 5 mg-325 1 tab PO BID PRN pain 7 days #14 02/21/21 mg tablet tabs prednisone 20 mg tablet 20 mg PO DAILY 7 days #7 tabs 02/25/23 ondansetron 4 mg disintegrating 4 mg PO Q8H PRN nausea and 05/16/23 tablet vomiting #14 tabs vakqwdiab-lipzouovo-nusgtmcj-scop 1 tab PO BID PRN indigestion #14 03/17/23 16.2 mg-0.1037 mg-0.0194 mg tablet tabs () Allergies Allergy/AdvReac Type Severity Reaction Status Date / Time penicillin G [PENICILLIN G] Allergy Unknown ANAPHYLAXIS Verified 03/17/23 13:20 shrimp Allergy Anaphylaxis Verified 03/17/23 13:20 Review of Systems Constitutional: Comments: General malaise. Chills without fever Cardiovascular: Comments: No chest pain Respiratory: Comments: No cough or dyspnea Gastrointestinal: Comments: Lower abdominal pain. Nausea without vomiting. Copious diarrhea Musculoskeletal: Comments: Chronic joint pain and swelling, diffuse, polyarticular. Integumentary/Breasts: Comments: No rash Neurologic: Comments: No focal weakness. Positive General malaise [facility] Past Medical History Medical History Allergies GERD (gastroesophageal reflux disease) Headache Surgical History History of tubal ligation Hx of tonsillectomy Family History Family History Mother No problems noted. Father No problems noted. 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 Lying on stretcher. Eyes closed but answering questions in Indonesian. HENMT Other: Normocephalic atraumatic. Mucosa dry Neck Other: No meningismus Resp Other: Clear and equal bilaterally without wheezes rales or rhonchi Cardio Other: Regular rate and rhythm without murmurs rubs or gallops GI Other: Soft. Tender across low abdomen. No lateralizing tenderness. No guarding. No rebound Skin Other: Warm and dry without rash Neuro Other: Nonfocal neuro exam. Unable to comply with ataxia testing at this time Medications Administered Discontinued Medications Generic Name Dose Route Start Last Admin Trade Name Tara PRN Reason Stop Dose Admin Diphenhydramine HCl 25 mg 03/17/23 14:01 03/17/23 14:26 Diphenhydramine Hcl 50 Mg/Ml Vial IVPUSH 03/17/23 14:02 25 mg ONCE ONE Administration Sodium Chloride 1,000 mls @ 999 mls/hr 03/17/23 14:15 03/17/23 15:29 Ns IV 03/17/23 15:15 Infused .Q1H1M JANAY Infusion Ondansetron HCl 4 mg 03/17/23 14:01 03/17/23 14:26 Ondansetron Hcl 4 Mg/2 Ml Vial IVPUSH 03/17/23 14:02 4 mg ONCE ONE Administration Medical Decision Making Medical Decision Making MDM Narrative: Patient with multiple different complaints, possibly unrelated. Vertigo and tinnitus which she has had intermittently for several years. Likely benign positional vertigo with possible Meniere's disease. Unlikely related to diarrhea syndrome which is a new complaint. She clinically appears dehydrated. Will treat with IV fluids, IV antiemetics. Broad-based workup starting with labs. Given severity of symptoms, will likely need CT scan. Awake creatinine prior to ordering. 18:03. CBC is normal with a white count of 8.4. Chemistry showed normal electrolytes, normal creatinine. Glucose is mildly elevated at 177 but lower than prior results. Lactic acid is 1.6. LFTs and lipase are normal. TSH is normal at 1.18. CT scan shows no obvious abnormalities to account for patient's symptoms. She has a small ovarian cyst but not likely related to today's issues. Re-evaluation shows she is less tender. She is feeling better and thinks she can drink. Will attempt p.o. challenge and discharge if able to tolerate 18:31. Patient able to tolerate p.o. challenge but having some increased pain but no vomiting. Pain is epigastric without significant tenderness. Will add GI cocktail and and discharge home Lab Data 03/17/23 13:57 03/17/23 13:57 Labs: Lab Results 03/17/23 03/17/23 03/17/23 Range/Units 13:57 13:57 13:57 WBC 8.4 (4.8-10.8) X10*3/uL RBC 4.88 (4.20-5.50) X10*6/uL Hgb 12.2 (12.0-16.0) g/dl Hct 39.2 (37.0-47.0) % MCV 80.3 (80.0-98.0) fL MCH 25.0 L (27.0-33.0) pg MCHC 31.1 (31.0-35.0) g/dl RDW 19.9 H (11.0-16.0) % Plt Count 326 (160-400) X10*3/uL MPV 9.6 (9.4-12.3) fL Immature Gran % (Auto) 0.2 (0.0-0.4) % Neut % (Auto) 63.2 (45-73) % Lymph % (Auto) 29.8 (20-40) % [place] % (Auto) 6.4 (2-11) % Eos % (Auto) 0.2 (0-4) % Baso % (Auto) 0.2 (0-2) % Lymph # (Auto) 2.5 (1.2-4.9) X10*3/uL [place] # (Auto) 0.5 (0.1-1.2) X10*3/uL Eos # (Auto) 0.0 (0.0-0.4) X10*3/uL Baso # (Auto) 0.0 (0.0-0.2) X10*3/uL Abs Immat Gran (auto) 0.02 (0.00-0.03) X10*3/uL Absolute Neuts (auto) 5.3 (2.0-8.3) x10*3/uL Absolute Nucleated RBC 0.020 H (0.0-0.012) X10*3/uL Nucleated RBC % (auto) 0.2 (0.0-0.2) /100WBC Sodium 135 (135-145) mmol/L Potassium 4.0 (3.3-5.1) mmol/L Chloride 101 (96-108) mmol/L Carbon Dioxide 25 (22-29) mmol/L Anion Gap 13 (12-20) BUN 12 (9-16) mg/dL Creatinine 0.81 (0.5-1.4) mg/dL Estim Creat Clear Calc 96.7 Estimated GFR > 60 Random Glucose 177 H (60-115) mg/dL Lactic Acid (0.5-2.0) mmol/L Calcium 9.9 D (8.4-10.2) mg/dL Magnesium 1.6 (1.6-2.6) mg/dL Total Bilirubin 0.4 (0.0-1.0) mg/dL Direct Bilirubin 0.1 (0.0-0.5) mg/dL AST 17 (5-31) U/L ALT 20 (0-31) U/L Alkaline Phosphatase 88 (39-117) U/L Troponin I High Sens (<3.5-17.0) ng/L Total Protein 7.8 (6.5-8.0) g/dL Albumin 4.4 (3.5-5.0) g/dL Lipase 24 (8-78) U/L TSH (0.32-4.0) uIU/mL Urine Color Urine Appearance Urine pH (5.0-9.0) Ur Specific [place] (1.005-1.025) Urine Protein (Neg-Trace) mg/dL Urine Glucose (UA) (Negative) mg/dL Urine Ketones (Negative) mg/dL Urine Blood (Negative) Urine Nitrite (Negative) Ur Leukocyte Esterase (Negative) Urine RBC (0-2) /HPF Urine WBC (0-5) /HPF Ur Squamous Epith Cells (0-2) /HPF Urine Bacteria (None Seen) Hyaline Casts (0-2) /LPF COVID-19 ([place]) Cancelled COVID-19 Clin Com Cancelled 03/17/23 03/17/23 03/17/23 Range/Units 13:57 14:46 14:46 WBC (4.8-10.8) X10*3/uL RBC (4.20-5.50) X10*6/uL Hgb (12.0-16.0) g/dl Hct (37.0-47.0) % MCV (80.0-98.0) fL MCH (27.0-33.0) pg MCHC (31.0-35.0) g/dl RDW (11.0-16.0) % Plt Count (160-400) X10*3/uL MPV (9.4-12.3) fL Immature Gran % (Auto) (0.0-0.4) % Neut % (Auto) (45-73) % Lymph % (Auto) (20-40) % [place] % (Auto) (2-11) % Eos % (Auto) (0-4) % Baso % (Auto) (0-2) % Lymph # (Auto) (1.2-4.9) X10*3/uL [place] # (Auto) (0.1-1.2) X10*3/uL Eos # (Auto) (0.0-0.4) X10*3/uL Baso # (Auto) (0.0-0.2) X10*3/uL Abs Immat Gran (auto) (0.00-0.03) X10*3/uL Absolute Neuts (auto) (2.0-8.3) x10*3/uL Absolute Nucleated RBC (0.0-0.012) X10*3/uL Nucleated RBC % (auto) (0.0-0.2) /100WBC Sodium (135-145) mmol/L Potassium (3.3-5.1) mmol/L Chloride (96-108) mmol/L Carbon Dioxide (22-29) mmol/L Anion Gap (12-20) BUN (9-16) mg/dL Creatinine (0.5-1.4) mg/dL Estim Creat Clear Calc Estimated GFR Random Glucose (60-115) mg/dL Lactic Acid 1.6 (0.5-2.0) mmol/L Calcium (8.4-10.2) mg/dL Magnesium (1.6-2.6) mg/dL Total Bilirubin (0.0-1.0) mg/dL Direct Bilirubin (0.0-0.5) mg/dL AST (5-31) U/L ALT (0-31) U/L Alkaline Phosphatase (39-117) U/L Troponin I High Sens < 2.7 (<3.5-17.0) ng/L Total Protein (6.5-8.0) g/dL Albumin (3.5-5.0) g/dL Lipase (8-78) U/L TSH 1.18 (0.32-4.0) uIU/mL Urine Color Urine Appearance Urine pH (5.0-9.0) Ur Specific [place] (1.005-1.025) Urine Protein (Neg-Trace) mg/dL Urine Glucose (UA) (Negative) mg/dL Urine Ketones (Negative) mg/dL Urine Blood (Negative) Urine Nitrite (Negative) Ur Leukocyte Esterase (Negative) Urine RBC (0-2) /HPF Urine WBC (0-5) /HPF Ur Squamous Epith Cells (0-2) /HPF Urine Bacteria (None Seen) Hyaline Casts (0-2) /LPF COVID-19 ([place]) COVID-19 Clin Com 03/17/23 Range/Units 16:20 WBC (4.8-10.8) X10*3/uL RBC (4.20-5.50) X10*6/uL Hgb (12.0-16.0) g/dl Hct (37.0-47.0) % MCV (80.0-98.0) fL MCH (27.0-33.0) pg MCHC (31.0-35.0) g/dl RDW (11.0-16.0) % Plt Count (160-400) X10*3/uL MPV (9.4-12.3) fL Immature Gran % (Auto) (0.0-0.4) % Neut % (Auto) (45-73) % Lymph % (Auto) (20-40) % [place] % (Auto) (2-11) % Eos % (Auto) (0-4) % Baso % (Auto) (0-2) % Lymph # (Auto) (1.2-4.9) X10*3/uL [place] # (Auto) (0.1-1.2) X10*3/uL Eos # (Auto) (0.0-0.4) X10*3/uL Baso # (Auto) (0.0-0.2) X10*3/uL Abs Immat Gran (auto) (0.00-0.03) X10*3/uL Absolute Neuts (auto) (2.0-8.3) x10*3/uL Absolute Nucleated RBC (0.0-0.012) X10*3/uL Nucleated RBC % (auto) (0.0-0.2) /100WBC Sodium (135-145) mmol/L Potassium (3.3-5.1) mmol/L Chloride (96-108) mmol/L Carbon Dioxide (22-29) mmol/L Anion Gap (12-20) BUN (9-16) mg/dL Creatinine (0.5-1.4) mg/dL Estim Creat Clear Calc Estimated GFR Random Glucose (60-115) mg/dL Lactic Acid (0.5-2.0) mmol/L Calcium (8.4-10.2) mg/dL Magnesium (1.6-2.6) mg/dL Total Bilirubin (0.0-1.0) mg/dL Direct Bilirubin (0.0-0.5) mg/dL AST (5-31) U/L ALT (0-31) U/L Alkaline Phosphatase (39-117) U/L Troponin I High Sens (<3.5-17.0) ng/L Total Protein (6.5-8.0) g/dL Albumin (3.5-5.0) g/dL Lipase (8-78) U/L TSH (0.32-4.0) uIU/mL Urine Color Yellow Urine Appearance Clear Urine pH 5.5 (5.0-9.0) Ur Specific [place] 1.010 (1.005-1.025) Urine Protein Negative (Neg-Trace) mg/dL Urine Glucose (UA) 250 H (Negative) mg/dL Urine Ketones Negative (Negative) mg/dL Urine Blood Trace H (Negative) Urine Nitrite Negative (Negative) Ur Leukocyte Esterase Negative (Negative) Urine RBC 0-2 (0-2) /HPF Urine WBC 0-5 (0-5) /HPF Ur Squamous Epith Cells 0-2 (0-2) /HPF Urine Bacteria None Seen (None Seen) Hyaline Casts 0-2 (0-2) /LPF COVID-19 ([place]) COVID-19 Clin Com Discharge Plan Discharge Clinical Impression: Gastroenteritis, Dehydration Patient Disposition: Home, Self-Care Instructions: Dehydration (ED), Gastroenteritis (ED) Additional Instructions: Drink plenty of liquids. Zofran is for nausea and vomiting. is for crampy pain Prescriptions: New ondansetron 4 mg tablet,disintegrating 4 mg PO Q8H PRN (Reason: nausea and vomiting) Qty: 14 0RF wvcrbnfas-vnekxf-jjuitnuc-scop [] 16.2-0.1037 -0.0194 mg tablet 1 tab PO BID PRN (Reason: indigestion) Qty: 14 0RF No Action oxycodone-acetaminophen 5-325 mg tablet 1 tab PO Q8H PRN (Reason: pain) Qty: 21 0RF oxycodone-acetaminophen [Percocet] 5-325 mg tablet 1 tab PO Q8H PRN (Reason: pain (scale score 4-6)) 7 Days Qty: 21 0RF oxycodone-acetaminophen 5-325 mg tablet 1 tab PO BID PRN (Reason: pain) 7 Days Qty: 14 0RF cetirizine 10 mg tablet 1 tab PO DAILY omeprazole 20 mg capsule,delayed release(DR/EC) 1 cap PO DAILY topiramate 50 mg tablet 1 tab PO DAILY ibuprofen 800 mg tablet 1 tab PO QID PRN (Reason: Pain) oxycodone [OxyContin] 10 mg tablet,oral only,ext.rel.12 hr 10 mg PO Q12H 3 Days Qty: 6 0RF prednisone 20 mg tablet 20 mg PO DAILY 7 Days Qty: 7 0RF
[2023-03-17 14:08] VITALS: BP 142/78; PULSE 80
[2023-03-17 14:10] VITALS: BP 137/85; PULSE 87
[2023-03-17 14:13] LABS: Basophils Percent Auto 0.2 % (0-2); Eosinophils Percent Auto 0.2 % (0-4); Hematocrit 39.2 % (37.0-47.0); Hemoglobin 12.2 g/dl (12.0-16.0); Imm Gran Abs Auto 0.02 X10*3/uL (0.00-0.03); Imm Gran Pct Auto 0.2 % (0.0-0.4); Lymphocytes Absolute Auto 2.5 X10*3/uL (1.2-4.9); Lymphocytes Percent Auto 29.8 % (20-40); Mean Corpuscular HGB Conc 31.1 g/dl (31.0-35.0); Mean Corpuscular Volume 80.3 fL (80.0-98.0); Mean Platelet Volume 9.6 fL (9.4-12.3); Monocytes Absolute Auto 0.5 X10*3/uL (0.1-1.2); Monocytes Percent Auto 6.4 % (2-11); NRBC Pct Auto 0.2 /100WBC (0.0-0.2); Neutrophils Absolute Auto 5.3 x10*3/uL (2.0-8.3); Neutrophils Percent Auto 63.2 % (45-73); Platelet Count 326 X10*3/uL (160-400); Red Blood Count 4.88 X10*6/uL (4.20-5.50); Red Cell Distribution Width 19.9 % (11.0-16.0); White Blood Count 8.4 X10*3/uL (4.8-10.8)
[2023-03-17 14:23] LABS: Alanine Aminotransferase 20 U/L (0-31); Albumin Level 4.4 g/dL (3.5-5.0); Alkaline Phosphatase 88 U/L (39-117); Anion Gap 13 (12-20); Aspartate Amino Transferase 17 U/L (5-31); Bilirubin Direct 0.1 mg/dL (0.0-0.5); Bilirubin Total 0.4 mg/dL (0.0-1.0); Blood Urea Nitrogen 12 mg/dL (9-16); Calcium 9.9 mg/dL (8.4-10.2); Carbon Dioxide 25 mmol/L (22-29); Chloride 101 mmol/L (96-108); Creatinine Clr Calc Pharmacy 96.7; Estimated Glomerular Filt Rate > 60; Glucose Random 177 mg/dL (60-115); Lipase 24 U/L (8-78); Magnesium 1.6 mg/dL (1.6-2.6); Sodium 135 mmol/L (135-145); Total Protein 7.8 g/dL (6.5-8.0)
[2023-03-17] MEDS: diphenhydrAMINE HCL 50 MG/ML VIAL 25 MG IVPUSH (14:26)
[2023-03-17] MEDS: ondansetron HCL 4 MG/2 ML VIAL IVPUSH (14:26)
[2023-03-17] MEDS: 0.9 % Sodium Chloride 1,000 ML 999 ML IV (14:28)
[2023-03-17 14:32] LABS: Troponin-I High Sensitivity < 2.7 ng/L (<3.5-17.0)
--- NOTE | 2023-03-17 14:35 | PC.NURSE ---
pt to radiology
[2023-03-17 15:06] LABS: Lactic Acid 1.6 mmol/L (0.5-2.0)
[2023-03-17 15:30] LABS: TSH reflex Free T4 1.18 uIU/mL (0.32-4.0)
[2023-03-17 16:17] VITALS: BP 111/57; PULSE 75; RESP 16; TEMP 36.7; O2SAT 99
[2023-03-17 16:43] LABS: Appearance Urine Clear; Color Urine Yellow; Glucose Urine UA 250 mg/dL (Negative); Leukocyte Esterase Urine Negative (Negative); Nitrite Urine Negative (Negative); PH 5.5 (5.0-9.0); UMIC TRIGGER UACC YES; Urine Blood Trace (Negative); Urine Ketones Negative (Negative); Urine Protein Negative (Neg-Trace)
[2023-03-17 16:46] LABS: Bacteria Urine None Seen (None Seen); Hyaline Casts Urine 0-2 /LPF (0-2); RBC Urine 0-2 /HPF (0-2); Squamous Epithelial Cell Urine 0-2 /HPF (0-2); WBC Urine 0-5 /HPF (0-5)
[2023-03-17 18:27] VITALS: BP 111/58; PULSE 84; RESP 18; TEMP 36.7; O2SAT 100
--- NOTE | 2023-03-17 18:28 | PC.NURSE ---
patient a&ox3, vss, pt had po challenge per request of provider, pt c/o increased abd pain after po, provider notified and family is at bedside, call james within reach, will continue to monitor.
[2023-03-17] MEDS: PHENobarb/Hyoscy/Atropine/Scop 10 ML ELIXIR PO (18:51)
[2023-03-17] MEDS: Magnesium Hydrox/Alum Hydrox 30 ML ORAL.SUSP PO (18:51)
[2023-03-17] MEDS: Lidocaine HCl Viscous 2 % 15 ML SOLUTION PO (18:52)
== END 2023-03-17 18:59 | disposition home or self-care (01) ==
PROVIDERS: Nurse Practitioner Family; Emergency Provider Emergency Medicine; PCP Internal Medicine
DX: K52.9 Noninfective gastroenteritis and colitis, unspecified (principal); E86.0 Dehydration; R42 Dizziness and giddiness; H93.19 Tinnitus, unspecified ear; R10.9 Unspecified abdominal pain
CPT/HCPCS: 36415; 74176; 80048; 80076; 81001; 83605; 83690; 83735; 84443; 84484; 85025; 87635; 93005; 96361; 96374; 96375; 99284; 99285; J1200; J2405

== ENCOUNTER → 2023-04-30 12:36 | Outpatient (BNVA) | payer MEDICAID, SELFPAY | PROVIDERS: PCP Internal Medicine; Visit Provider Nurse Practitioner Family | DX: G25.81 Restless legs syndrome (principal); G47.52 REM sleep behavior disorder; G47.19 Other hypersomnia; R06.83 Snoring | CPT/HCPCS: 99202 ==

== ENCOUNTER → 2023-05-13 19:30 | Outpatient (REF) | payer MEDICAID, SELFPAY | LOC: HO.SL 19:30 | PROVIDERS: PCP Internal Medicine; Visit Provider Nurse Practitioner Family | DX: R06.83 Snoring (principal); G47.19 Other hypersomnia; G47.52 REM sleep behavior disorder; G25.81 Restless legs syndrome; I10 Essential (primary) hypertension; E11.9 Type 2 diabetes mellitus without complications | CPT/HCPCS: 95810 ==

== ENCOUNTER → 2023-05-13 22:25 | Outpatient (BNV) | payer MEDICAID, SELFPAY | PROVIDERS: PCP Internal Medicine; Visit Provider Psychiatry & Neurology Neurology | DX: R06.83 Snoring (principal) | CPT/HCPCS: 95810 ==

== ENCOUNTER 2023-06-03 09:26 | Outpatient (REF) | payer MEDICAID, SELFPAY ==
[2023-06-03 16:04] LABS: Creatinine Urine 260.97 mg/dL; Microalbum/Creatinine Ratio Ur 8.8 ug/mg cr
[2023-06-03 16:05] LABS: Anion Gap 16 (12-20); Blood Urea Nitrogen 10 mg/dL (9-16); Calcium 9.2 mg/dL (8.4-10.2); Carbon Dioxide 23 mmol/L (22-29); Chloride 105 mmol/L (96-108); Cholesterol 178 mg/dL; Estimated Glomerular Filt Rate > 60; Glucose Fasting 98 mg/dL (60-99); HDL Cholesterol 61 mg/dL; LDL Cholesterol Calculated 94 mg/dl; Potassium 3.9 mmol/L (3.3-5.1); Sodium 140 mmol/L (135-145); Triglycerides 117 mg/dL
== END 2023-06-03 09:27 | disposition home or self-care (01) ==
LOC: HO.CHCLDS 09:26
PROVIDERS: Visit Provider Internal Medicine
DX: I10 Essential (primary) hypertension (principal); E11.9 Type 2 diabetes mellitus without complications
CPT/HCPCS: 36415; 80048; 80061; 82043

== ENCOUNTER → 2023-06-08 13:45 | Outpatient (BNV) | payer MEDICAID, SELFPAY | PROVIDERS: PCP Internal Medicine; Visit Provider Radiology Diagnostic Radiology | DX: Z12.31 Encounter for screening mammogram for malignant neoplasm of breast (principal) | CPT/HCPCS: 77063; 77067 ==

== ENCOUNTER 2023-06-08 13:53 | Outpatient (REF) | payer MEDICAID, SELFPAY ==
--- NOTE | ~2023-06-08 | MM_ITS ---
EXAMINATION: MM SCREENING DIGITAL BREAST TOMOSYNTHESIS, BILATERAL CLINICAL INFORMATION: Screening. Asymptomatic. The lifetime risk of breast cancer based on the Tyrer-Cuzick Model is 11.2%. COMPARISON: Mammography: 12/17/2021, 12/29/2018, 04/13/2017. TECHNIQUE: Digital breast tomosynthesis is performed in both the craniocaudal and mediolateral oblique views along with computer-aided detection (CAD). Synthesized 2D images are generated from the tomosynthesis. FINDINGS: There are scattered areas of fibroglandular density (ACR BI-RADS breast composition Category b). There are no suspicious masses, suspicious grouped calcifications, or areas of architectural distortion. The parenchymal pattern is stable from prior exams. There are no skin changes. MM/MM tomosynthesis screening BI IMPRESSION: No mammographic evidence of malignancy. ASSESSMENT: BI-RADS BI-RADS 1 - Negative RECOMMENDATION: Routine annual mammography screening. 1 year F/U This examination should not preclude the clinical evaluation of a suspicious palpable abnormality. This patient's information was entered into a reminder system with a target due date for their next mammogram.
== END 2023-06-08 13:54 | disposition home or self-care (01) ==
LOC: HO.MAMMO 13:53
PROVIDERS: PCP Internal Medicine; Visit Provider Internal Medicine
DX: Z12.31 Encounter for screening mammogram for malignant neoplasm of breast (principal)
CPT/HCPCS: 77063; 77067

== ENCOUNTER 2023-06-09 12:14 | Outpatient (REF) | payer MEDICAID, SELFPAY ==
[2023-06-10 12:49] LABS: BV Int Neg Control Negative (Negative); BV Int Pos Control Positive (Positive)
== END 2023-06-09 12:15 | disposition home or self-care (01) ==
LOC: HO.CHCLNP 12:14
PROVIDERS: Visit Provider Advanced Practice Midwife
DX: N89.8 Other specified noninflammatory disorders of vagina (principal)
CPT/HCPCS: 87480; 87510; 87660

== ENCOUNTER 2023-06-24 08:38 | Outpatient (REF) | payer MEDICAID, SELFPAY ==
--- NOTE | ~2023-06-24 | XR_ITS ---
EXAMINATION: XR FOOT, BILATERAL XR HANDS, BILATERAL XR LUMBOSACRAL SPINE CLINICAL INFORMATION: Bilateral hand and foot pain along with low back pain. COMPARISON: CT abdomen and pelvis 03/17/2023. TECHNIQUE: 3 views each foot, 3 views each hand, 3 views lumbosacral spine. FINDINGS: LUMBOSACRAL SPINE: Lumbar vertebral body heights are well-maintained. Disc spaces are well maintained. Some minimal spondylitic endplate changes are seen with tiny osteophytes in the endplates from T12 through L1. No fractures or bony destructive lesions. BILATERAL FEET: No significant bone, joint or soft tissue abnormality is seen. BILATERAL HANDS: No significant bone, joint or soft tissue abnormality is seen. XR/XR hand RT min 3V IMPRESSION: 1. No significant disc space narrowing or vertebral body height loss in the lumbar spine. There are minimal spondylitic endplate changes. 2. Normal appearances of the hands and feet.
--- NOTE | ~2023-06-24 | XR_ITS ---
EXAMINATION: XR FOOT, BILATERAL XR HANDS, BILATERAL XR LUMBOSACRAL SPINE CLINICAL INFORMATION: Bilateral hand and foot pain along with low back pain. COMPARISON: CT abdomen and pelvis 03/17/2023. TECHNIQUE: 3 views each foot, 3 views each hand, 3 views lumbosacral spine. FINDINGS: LUMBOSACRAL SPINE: Lumbar vertebral body heights are well-maintained. Disc spaces are well maintained. Some minimal spondylitic endplate changes are seen with tiny osteophytes in the endplates from T12 through L1. No fractures or bony destructive lesions. BILATERAL FEET: No significant bone, joint or soft tissue abnormality is seen. BILATERAL HANDS: No significant bone, joint or soft tissue abnormality is seen. XR/XR foot LT min 3V IMPRESSION: 1. No significant disc space narrowing or vertebral body height loss in the lumbar spine. There are minimal spondylitic endplate changes. 2. Normal appearances of the hands and feet.
--- NOTE | ~2023-06-24 | XR_ITS ---
EXAMINATION: XR FOOT, BILATERAL XR HANDS, BILATERAL XR LUMBOSACRAL SPINE CLINICAL INFORMATION: Bilateral hand and foot pain along with low back pain. COMPARISON: CT abdomen and pelvis 03/17/2023. TECHNIQUE: 3 views each foot, 3 views each hand, 3 views lumbosacral spine. FINDINGS: LUMBOSACRAL SPINE: Lumbar vertebral body heights are well-maintained. Disc spaces are well maintained. Some minimal spondylitic endplate changes are seen with tiny osteophytes in the endplates from T12 through L1. No fractures or bony destructive lesions. BILATERAL FEET: No significant bone, joint or soft tissue abnormality is seen. BILATERAL HANDS: No significant bone, joint or soft tissue abnormality is seen. XR/XR hand LT min 3V IMPRESSION: 1. No significant disc space narrowing or vertebral body height loss in the lumbar spine. There are minimal spondylitic endplate changes. 2. Normal appearances of the hands and feet.
--- NOTE | ~2023-06-24 | XR_ITS ---
EXAMINATION: XR FOOT, BILATERAL XR HANDS, BILATERAL XR LUMBOSACRAL SPINE CLINICAL INFORMATION: Bilateral hand and foot pain along with low back pain. COMPARISON: CT abdomen and pelvis 03/17/2023. TECHNIQUE: 3 views each foot, 3 views each hand, 3 views lumbosacral spine. FINDINGS: LUMBOSACRAL SPINE: Lumbar vertebral body heights are well-maintained. Disc spaces are well maintained. Some minimal spondylitic endplate changes are seen with tiny osteophytes in the endplates from T12 through L1. No fractures or bony destructive lesions. BILATERAL FEET: No significant bone, joint or soft tissue abnormality is seen. BILATERAL HANDS: No significant bone, joint or soft tissue abnormality is seen. XR/XR lumbar spine 2-3V IMPRESSION: 1. No significant disc space narrowing or vertebral body height loss in the lumbar spine. There are minimal spondylitic endplate changes. 2. Normal appearances of the hands and feet.
--- NOTE | ~2023-06-24 | XR_ITS ---
EXAMINATION: XR FOOT, BILATERAL XR HANDS, BILATERAL XR LUMBOSACRAL SPINE CLINICAL INFORMATION: Bilateral hand and foot pain along with low back pain. COMPARISON: CT abdomen and pelvis 03/17/2023. TECHNIQUE: 3 views each foot, 3 views each hand, 3 views lumbosacral spine. FINDINGS: LUMBOSACRAL SPINE: Lumbar vertebral body heights are well-maintained. Disc spaces are well maintained. Some minimal spondylitic endplate changes are seen with tiny osteophytes in the endplates from T12 through L1. No fractures or bony destructive lesions. BILATERAL FEET: No significant bone, joint or soft tissue abnormality is seen. BILATERAL HANDS: No significant bone, joint or soft tissue abnormality is seen. XR/XR foot RT min 3V IMPRESSION: 1. No significant disc space narrowing or vertebral body height loss in the lumbar spine. There are minimal spondylitic endplate changes. 2. Normal appearances of the hands and feet.
== END 2023-06-24 08:39 | disposition home or self-care (01) ==
LOC: HO.XRAY 08:38
PROVIDERS: PCP Internal Medicine; Visit Provider Internal Medicine Rheumatology
DX: M79.641 Pain in right hand (principal); M79.642 Pain in left hand; M79.671 Pain in right foot; M79.672 Pain in left foot; M54.50 Low back pain, unspecified
CPT/HCPCS: 72100; 73130; 73630

== ENCOUNTER 2023-06-24 08:38 | Outpatient (AMB) | payer MEDICAID, SELFPAY ==
--- NOTE | 2023-06-24 08:40 | MHC.OFFVIS ---
Intake Vital Signs 06/24/23 08:41 Height 5 ft 5 in Weight 207 lb 14.334 oz BMI 34.6 BP 102/74 Blood Pressure Location Lt brachial Position Sitting Pulse 68 Pulse Source Pulse Oximeter Temp 97.1 F Temp Source Skin Pulse Oximetry (%) 99 Oxygen Delivery Method Room Air Intake Visit Reasons: +ARIANA Intake Note: Here for +ARIANA c/o limited ROM, multiple joint pain. Documentation Improvement Specialist Required: Yes Documentation Improvement Specialist Language: Work Ticket Distributor Name: Titi [id number] Information Interpreted: clinical only Accompanied by: Self / Same As Patient Allergies penicillin G [PENICILLIN G] Allergy (Unknown, Verified 06/24/23 08:40) ANAPHYLAXIS shrimp Allergy (Verified 06/24/23 08:40) Anaphylaxis HPI HPI Comments History of Present Illness Details The patient presents for evaluation of multiple areas of pain and a positive ARIANA. She is somewhat vague as to the date of onset of her symptoms but it appears that in the past year she has had more pains involving the hands, feet, wrists, lower back, shoulders, elbows and feet. She notes intermittent swelling of the hands and feet. She has more pain at night and in the mornings than later in the daytime. She has tried acetaminophen without help, she also was given a course of prednisone at 20 mg daily whioch did did not seem to make much difference. She is somewhat uncertain as to the exact medicines she is currently taking but she thinks she is taking meloxicam 15 mg daily and maybe Celebrex as well. She does not think she takes the ibuprofen anymore. She has a history of anxiety and depression with panic disorder. She has multiple medicines listed for that as well although cannot really confirm that that is what she is taking. These include buspirone, citalopram, clonazepam, diazepam, diphenhydramine, and venlafaxine. She has migraine headaches apparently also takes Topamax daily. She had a right rotator cuff repair a couple of years ago but it did not help much her shoulder pains. [facility] Medical History (Updated 06/24/23 @ 09:33 by Akash Herbert MD) Allergies GERD (gastroesophageal reflux disease) Headache Surgical History History of shoulder surgery History of tubal ligation Hx of tonsillectomy Family History (Updated 06/24/23 @ 08:45 by LILI Gallardo) Mother Arthritis Father Diabetes Social History (Updated 06/24/23 @ 08:45 by LILI Gallardo) Household Members: Significant Other Are you a primary nurse healthcare manager to a significant other at home: No Do you presently have visiting nurse or other home services: No Alcohol intake: former Patient Tobacco Use Status: Former Tobacco user Current occupational status: employed and unemployed Female Reproductive History Menstrual Total pregnancies: 4 Ab spontaneous: 1 Review of Systems Const Details: Fatigue and low energy. Negative for appetite change, weight change, fever, chills, malaise Eyes Details: Negative for vision change, dry eyes,headaches and dizziness ENT Details: Occasional tinnitus but negative otherwise for hearing change, oral ulcer, nose bleeds and oral dryness. Card Details: Negative chest pain, edema and syncope Resp Details: Negative for SOB, cough and wheezing GI Details: Occasional heartburn and constipation. Negative nausea, abdominal pain, bowel changes, diarrhea and bloody stool. Details: Negative for dysuria, hematuria, nocturia, decreased force/flow and genital discharge Skin/Breast Details: She has occasional rash in the groin on which she puts a topical cream. She does not know the name of it. It is not present currently. Negative for itching, rash, hives, Raynaud's symptoms, sun sensitivity, and skin cancer Neuro Details: Negative for epilepsy, palsy, stroke, changes in speech, tingling and weakness Psych Details: Negative for anxiety, depression and stress Endo Details: Negative for polyuria and polydypsia Arnulfo/Lymph Details: Negative for excessive bruising or bleeding. Physical Exam Vital Signs: Last Vital Signs Temp 97.1 F 06/24/23 08:41 Pulse 68 06/24/23 08:41 BP 102/74 06/24/23 08:41 Pulse Ox 99 06/24/23 08:41 Oxygen Delivery Method Room Air 06/24/23 08:41 BMI result Body Mass Index 34.6 APPEARANCE: Patient in no acute distress EYES no redness, pupils equal and reactive to light, eyelids normal EARS: External ear normal, canal clear and tympanic membrane normal. NOSE/SINUS: Airflow through both nares, no nasal discharge, no bleeding THROAT: Oral mucosa moist, no ulcerations NECK: No thyromegaly or masses, no adenopathy, trachea midline. HEART: Regulrar rhythm, S1-S2 heard, no murmurs, rubs or gallops. LUNG: Clear to percussion and auscultation ABD: Normal bowel sounds, no organomegaly, masses or tenderness. EXTREMITIES: No edema, no calf tenderness, normal peripheral pulses. NEURO: Oriented and alert x3. No focal weakness. Reflexes symmetric. Gait normal. SKIN: No inflammatory or neoplastic lesions. Normal color and turgor JOINT EXAM:.?? Cervical Spine:.? Full range of motion without pain; no tenderness. Thoracic Spine:.? No scoliosis.? No tenderness on palpation. Lumbar Spine:.? Alignment normal.? Mild pain with flexion at 45 degrees. There is some paraspinal muscle tenderness. There is also pain with attempts at hyperextension. Straight leg raising is negative. Chest Wall:.? No tenderness, swelling, increased warmth or erythema. Hands:.? Normal pain-free range of motion without tenderness, swelling, increased warmth or erythema. 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 Wrists:.? Slight pain with flexion extension at 80 degrees but no tenderness, swelling, increased warmth or erythema. Elbows:. Normal pain-free range of motion without tenderness, swelling, increased warmth or erythema. Shoulders:.??Right: There is mild pain abduction at 100 degrees or more than 20 degrees of internal or external rotation. Mild anterior tenderness without weakness, adenopathy or swelling. Left: Full range of motion without pain. No tenderness, weakness, swelling, increased warmth or erythema. Hips:.? Full range of motion with mild pain in the lateral posterior buttock region at the extremes of external rotation or abduction. No groin pain with motion. Hip bursa:.? Slight trochanteric tenderness. Knees:?? Normal pain-free range of motion with mild medial compartment tenderness. No effusion, crepitus, swelling, increased warmth or erythema.? Ankles:? Mild pain with extremes of normal range of motion with some mild tenderness but no swelling, increased warmth or erythema. Feet:.? Right: Normal pain-free range of motion with slight 1st MTP bony enlargement but no tenderness, swelling, increased warmth or erythema. The left: There is mild bony enlargement and tenderness at the 1st MTP joint. Other joints have normal pain-free range of motion without tenderness or swelling. Tender points:.? Mild tenderness to digital palpation at the occiput, right trapezius, both second rib, both lateral epicondyle, both greater trochanter areas ? Results Reviewed Results Reviewed: Laboratory Tests 02/25/23 02/25/23 03/17/23 12:02 12:02 13:57 WBC 8.4 Hgb 12.2 Plt Count 326 ESR 16 Creatinine AST ALT C-Reactive Protein 1.04 H TSH 03/17/23 03/17/23 06/03/23 13:57 14:46 09:33 WBC Hgb Plt Count ESR Creatinine 0.68 AST 17 ALT 20 C-Reactive Protein TSH 1.18 ARIANA reported as positve 1:40, in PCP note Assessment & Plan Assessment & Plan (1) Bilateral hand pain: Code(s): M79.641 - Pain in right hand; M79.642 - Pain in left hand (2) Foot pain, bilateral: Code(s): M79.671 - Pain in right foot; M79.672 - Pain in left foot (3) Low back pain: Code(s): M54.50 - Low back pain, unspecified (4) ARIANA positive: Code(s): R76.8 - Other specified abnormal immunological findings in serum Plan The patient has a positive ARIANA but no clear signs on exam of an active inflammatory process. She has some signs of bony enlargement at the 1st MTP's so probably has some osteoarthritis in the feet. I will check some confirmatory serologies for lupus, repeat acute phase reactants, CBC, the urine protein, and foot, hand and lumbar spine x-rays. We will get back to her with results. I suspect we are dealin here with mostly fibromyalgia and possibly some OA in the feet and lumbar spine. We will determine follow-up depending on the outcome her studies. I told she probably had fibromyalgia pending her lab and the x-rays. Orders: Orders XR hand LT min 3V Today M79.641 - Pain in right hand, M79.642 - Pain in left hand XR hand RT min 3V Today M79.641 - Pain in right hand, M79.642 - Pain in left hand XR foot LT min 3V Today M79.671 - Pain in right foot, M79.672 - Pain in left foot XR foot RT min 3V Today M79.671 - Pain in right foot, M79.672 - Pain in left foot XR lumbar spine 2-3V Today M54.50 - Low back pain, unspecified C Reactive Protein Today R76.8 - Other specified abnormal immunological findings in serum Protein Creatinine Ratio, Ur Today R76.8 - Other specified abnormal immunological findings in serum Complete Blood Count Auto Diff Today R76.8 - Other specified abnormal immunological findings in serum Erythrocyte Sedimentation Rate Today R76.8 - Other specified abnormal immunological findings in serum Complement C3 Today R76.8 - Other specified abnormal immunological findings in serum Complement C4 Today R76.8 - Other specified abnormal immunological findings in serum Anti DNA DS Antibody Today R76.8 - Other specified abnormal immunological findings in serum Anti Extractable Nuclear Ag Today R76.8 - Other specified abnormal immunological findings in serum Medications: Discontinued prednisone Discontinued Reason: Patient Completed Course 20 mg PO DAILY 7 days 7 tabs 0RF Coding Level of Care Code New Pt Level 3 (03041) Diagnoses Bilateral hand pain M79.641; M79.642 Foot pain, bilateral M79.671; M79.672 Low back pain M54.50 ARIANA positive R76.8
[2023-06-24 08:41] VITALS: BP 102/74; PULSE 68; TEMP 36.2; O2SAT 99; BMI 34.6
== END 2023-06-24 09:46 | disposition home or self-care (01) ==
PROVIDERS: PCP Internal Medicine; Visit Provider Internal Medicine Rheumatology
DX: M79.641 Pain in right hand (principal); M79.642 Pain in left hand; M79.671 Pain in right foot; M79.672 Pain in left foot; M54.50 Low back pain, unspecified; R76.8 Other specified abnormal immunological findings in serum
CPT/HCPCS: 99203

== ENCOUNTER 2023-06-24 09:41 | Outpatient (REF) | payer MEDICAID, SELFPAY ==
[2023-06-24 10:17] LABS: MANUAL DIFF FLAG NO
[2023-06-24 10:21] LABS: Basophils Percent Auto 0.3 % (0-2); Eosinophils Absolute Auto 0.1 X10*3/uL (0.0-0.4); Hematocrit 38.1 % (37.0-47.0); Hemoglobin 12.3 g/dl (12.0-16.0); Imm Gran Abs Auto 0.01 X10*3/uL (0.00-0.03); Imm Gran Pct Auto 0.1 % (0.0-0.4); Lymphocytes Absolute Auto 2.7 X10*3/uL (1.2-4.9); Lymphocytes Percent Auto 38.6 % (20-40); Mean Corpuscular HGB Conc 32.3 g/dl (31.0-35.0); Mean Corpuscular Hemoglobin 29.1 pg (27.0-33.0); Mean Corpuscular Volume 90.1 fL (80.0-98.0); Mean Platelet Volume 9.8 fL (9.4-12.3); Monocytes Absolute Auto 0.5 X10*3/uL (0.1-1.2); Monocytes Percent Auto 7.8 % (2-11); Neutrophils Absolute Auto 3.5 x10*3/uL (2.0-8.3); Neutrophils Percent Auto 51.2 % (45-73); Platelet Count 298 X10*3/uL (160-400); Red Blood Count 4.23 X10*6/uL (4.20-5.50); Red Cell Distribution Width 14.4 % (11.0-16.0); White Blood Count 6.9 X10*3/uL (4.8-10.8)
[2023-06-24 10:39] LABS: C Reactive Protein 0.53 mg/dL (< or = 0.50)
[2023-06-24 11:03] LABS: Erythrocyte Sedimentation Rate 14 MM/HR (0-20)
[2023-06-24 11:11] LABS: Creatinine Urine 188.82 mg/dL; Protein/Creatinine Ratio, Ur 0.08 (<0.2); Total Protein Urine Random 15 mg/dL (<12)
[2023-06-25 15:38] LABS: Complement C3 152 mg/dL (83-193)
[2023-06-26 18:29] LABS: Anti DNA DS Antibody <1 IU/mL; SM/Ribonucleoprotein Ab <1.0 NEG AI (<1.0 NEG); Smith Protein <1.0 NEG AI (<1.0 NEG)
== END 2023-06-24 09:42 | disposition home or self-care (01) ==
LOC: HO.10HDL 09:41
PROVIDERS: Visit Provider Internal Medicine Rheumatology
DX: R76.8 Other specified abnormal immunological findings in serum (principal); M79.641 Pain in right hand; M79.642 Pain in left hand; M79.671 Pain in right foot; M79.672 Pain in left foot; M54.50 Low back pain, unspecified
CPT/HCPCS: 36415; 84156; 85025; 85652; 86140; 86160; 86225; 86235; 99202

== ENCOUNTER 2023-07-13 09:45 | Outpatient (AMB) | payer MEDICAID, SELFPAY ==
--- NOTE | 2023-07-13 09:50 | MHC.OFFVIS ---
Intake Intake Visit Reasons: fibromyalgia/ increased pain, swelling Intake Note: Patient here fibromyalgia and increased pain/swelling Asset Protection Assistant Required: Yes Asset Protection Assistant Language: Quality Engineer Medical Device Name: Josh Rodas Information Interpreted: clinical only Accompanied by: Self / Same As Patient Allergies penicillin G [PENICILLIN G] Allergy (Unknown, Verified 07/13/23 10:08) ANAPHYLAXIS shrimp Allergy (Verified 07/13/23 10:08) Anaphylaxis Medication List - Last Reconciled 07/13/23 by Akash Herbert MD acetaminophen ER 650 mg PO Q8H PRN alcohol swabs (BD Alcohol Swabs) 0 pad topical BID blood sugar diagnostic (FreeStyle Lite Strips) As directed buspirone 30 mg PO BID wgnqfaenfx-gqwezipxulsik-yntf 50-325-40 mg 1 - 2 tabs PO Q6-8H PRN celecoxib 100 mg PO BID cetirizine 1 tab PO DAILY citalopram 20 mg PO DAILY clindamycin phosphate 1% 1 appl topical clonazepam 1.5 mg PO BEDTIME diazepam 1 - 2 mg PO Q12H PRN dicyclomine 20 mg orally before breakfast, lunch, and dinner; diphenhydramine HCl (Banophen) 50 mg PO Q4-6H PRN ferrous gluconate 324 mg PO QAM fluticasone propionate 50 mcg/actuation 2 sprays intranasal DAILY gabapentin 100 mg PO TID ketoconazole 2% topical 2XW lancets (FreeStyle Lancets) As directed lidocaine 5% 1 patch transdermal Q3D PRN lisinopril 10 mg PO DAILY meclizine 25 mg PO TID PRN metformin ER 1,000 mg PO QPM omeprazole magnesium (Prilosec OTC) 40 mg (2 x 20 mg) PO DAILY sodium chloride 0.65% (Saline Nasal) 1 - 2 sprays intranasal Q2-3H PRN tacrolimus 0.1% topical DIRECTED topiramate 1 tab PO DAILY triamcinolone acetonide 0.025% appl topical BID venlafaxine ER 150 mg PO QAM HPI HPI Comments History of Present Illness Details The patient returns today with multiple complaints of pain. The visit was facilitated through the use of the iPad translating service. I had seen her back in June. She seemed to have mostly some widespread tender points and some more prominent pains in the hands, knees, and feet. She had a positive ARIANA but was on a host of medications. I could not really determine what she was taking. She fortunately did bring in all her prescription bottles today. They do show that she is taking meloxicam and Celebrex. She has also been started on gabapentin. She takes 3 antihistamines: Benadryl, meclizine, and Zyrtec although mostly takes the Zyrtec. She is having some epigastric pain in spite of taking the proton pump inhibitor so has a GI referral in the works. She also remains on venlafaxine, BuSpar, clonazepam, and Ativan for anxiety. The the patient says her most symptomatic joints are her ankles at present. This is worse on the left. It is worse with more physical activity. She notes they are intermittently swollen. She does not recall any injury to those areas. She had been given a course of prednisone previously, 20 mg daily. She says there was some partial improvement with that. Of course symptoms referred back to baseline when it was stopped. [facility] Medical History Allergies Headache GERD (gastroesophageal reflux disease) Surgical History History of shoulder surgery History of tubal ligation Hx of tonsillectomy Family History (Updated 06/24/23 @ 08:45 by LILI Gallardo) Mother Arthritis Father Diabetes Social History (Updated 06/24/23 @ 08:45 by LILI Gallardo) Household Members: Significant Other Are you a primary manager urgent care to a significant other at home: No Do you presently have visiting nurse or other home services: No Alcohol intake: former Patient Tobacco Use Status: Former Tobacco user Current occupational status: employed and unemployed Review of Systems Const Details: Low energy at times. Negative for appetite change, weight change, fever, chills, malaise Eyes Details: Occasional headaches, helped with regular use of Topamax and p.r.n. use of butalbital. Negative for vision change, dry eyes, and dizziness ENT Details: Negative for hearing change, tinnitus, oral ulcer, nose bleeds and oral dryness. Card Details: Negative chest pain, edema and syncope Resp Details: Negative for SOB, cough and wheezing GI Details: Intermittent epigastric pain and heartburn. Negative nausea, abdominal pain, bowel changes, diarrhea, constipation and bloody stool. Skin/Breast Details: Negative for itching, rash, hives, Raynaud's symptoms, sun sensitivity, and skin cancer Psych Details: As he says anxiety, depression stable with current medications Endo Details: Negative for polyuria and polydypsia Arnulfo/Lymph Details: Negative for excessive bruising or bleeding. Physical Exam APPEARANCE: Patient in no acute distress JOINT EXAM:.?? Cervical Spine:.? Full range of motion without pain; no tenderness. Thoracic Spine:.? No scoliosis.? No tenderness on palpation. Lumbar Spine:.? Alignment normal.? Mild pain with flexion at 45 degrees. There is some paraspinal muscle tenderness. There is also pain with attempts at hyperextension. Straight leg raising is negative. Chest Wall:.? No tenderness, swelling, increased warmth or erythema. Hands:.? Normal pain-free range of motion. There is some slight tenderness at the 2nd 3rd PIP bilaterally but these do not appear to be swollen. There is no flexor tendon triggering, thenar atrophy, or sensory loss. Wrists:.? Slight pain with flexion extension at 80 degrees but no tenderness, swelling, increased warmth or erythema. Elbows:. Normal pain-free range of motion without tenderness, swelling, increased warmth or erythema. Shoulders:.??Right: There is mild pain abduction at 100 degrees or more than 20 degrees of internal or external rotation. Mild anterior tenderness without weakness, adenopathy or swelling. Left: Full range of motion without pain. No tenderness, weakness, swelling, increased warmth or erythema. Hips:.? Full range of motion with mild pain in the lateral posterior buttock region at the extremes of external rotation or abduction. No groin pain with motion. Hip bursa:.? Slight trochanteric tenderness. Knees:?? Normal pain-free range of motion with mild medial compartment tenderness. No effusion, crepitus, swelling, increased warmth or erythema.? Ankles:? Mild pain with extremes of normal range of motion with some mild tenderness, more on the left. There may be some soft tissue fullness in medial lateral regions bilaterally. No increased warmth or erythema. Feet:.? Right: Normal pain-free range of motion with slight 1st MTP bony enlargement but no tenderness, swelling, increased warmth or erythema. The left: There is mild bony enlargement and tenderness at the 1st MTP joint. Other joints have normal pain-free range of motion without tenderness or swelling. Tender points:.? Mild tenderness to digital palpation at the occiput, right trapezius, both second rib, both lateral epicondyle, both greater trochanter areas Results Reviewed Results Reviewed: [address] [address] XRay Report Signed Patient: Julia Smith MR#: [id number] : 1975 Acct:[id number] Age/Sex: 48 / F ADM Date: 06/24/[address]: Akash Herbert MD Ordering Physician: Akash Herbert MD Date of Service: 06/24/23 Procedure(s): XR hand RT min 3V Accession Number(s): [id number] cc: Akash Herbert MD~ EXAMINATION: XR FOOT, BILATERAL XR HANDS, BILATERAL XR LUMBOSACRAL SPINE CLINICAL INFORMATION: Bilateral hand and foot pain along with low back pain. COMPARISON: CT abdomen and pelvis 03/17/2023. TECHNIQUE: 3 views each foot, 3 views each hand, 3 views lumbosacral spine. FINDINGS: LUMBOSACRAL SPINE: Lumbar vertebral body heights are well-maintained. Disc spaces are well maintained. Some minimal spondylitic endplate changes are seen with tiny osteophytes in the endplates from T12 through L1. No fractures or bony destructive lesions. BILATERAL FEET: No significant bone, joint or soft tissue abnormality is seen. BILATERAL HANDS: No significant bone, joint or soft tissue abnormality is seen. XR/XR hand RT min 3V IMPRESSION: 1. No significant disc space narrowing or vertebral body height loss in the lumbar spine. There are minimal spondylitic endplate changes. 2. Normal appearances of the hands and feet. Dictated By: Collins Moreno MD June 24 labs: Hemoglobin 12.3, white count 6.9, ESR 14, CRP 0.53 Assessment & Plan Assessment & Plan (1) ARIANA positive: Code(s): R76.8 - Other specified abnormal immunological findings in serum (2) Foot pain, bilateral: Code(s): M79.671 - Pain in right foot; M79.672 - Pain in left foot (3) Ankle pain, left: Code(s): M25.572 - Pain in left ankle and joints of left foot (4) Fibromyalgia: Code(s): M79.7 - Fibromyalgia Plan She still has widespread pains but I do not see signs of an active inflammatory arthritis with the possible exception of some swelling in the ankles. This could be some mild lower extremity edema causing the swelling. There is medial and lateral tenderness which raises the question of some tendinitis at the ankles. I am going to repeat the acute phase reactants, CCP antibody and rheumatoid factor. We will see if we can obtain a MRI of the left ankle to look for signs of synovitis or structural problems. I told her to stop the meloxicam as that may be causing more abdominal pain particularly if she is already taking Celebrex. With the many tender points she likely has fibromyalgia as a primary disease process but I am concerned about the persistent pain in the ankles. I gave her a printout on fibromyalgia. Review of the history, explanations of fibromyalgia, and planned workup discussion took 32 minutes. Orders: Orders Cyclic Citrullinated Peptide Today M79.671 - Pain in right foot, M79.672 - Pain in left foot, R76.8 - Other specified abnormal immunological findings in serum Erythrocyte Sedimentation Rate Today M79.671 - Pain in right foot, M79.672 - Pain in left foot, R76.8 - Other specified abnormal immunological findings in serum MR ankle LT wo con Today M25.572 - Pain in left ankle and joints of left foot C Reactive Protein Today M79.671 - Pain in right foot, M79.672 - Pain in left foot, R76.8 - Other specified abnormal immunological findings in serum Medications: New leg brace (YOUSUF Ankle Brace) As directed 1 ea 0RF M25.572 - Pain in left ankle and joints of left foot Coding Level of Care Code Est Pt Level 4 (56334) Diagnoses ARIANA positive R76.8 Foot pain, bilateral M79.671; M79.672 Ankle pain, left M25.572 Fibromyalgia M79.7
== END 2023-07-13 10:43 | disposition home or self-care (01) ==
PROVIDERS: PCP Internal Medicine; Referring Provider Internal Medicine; Visit Provider Internal Medicine Rheumatology
DX: R76.8 Other specified abnormal immunological findings in serum (principal); M79.671 Pain in right foot; M79.672 Pain in left foot; M25.572 Pain in left ankle and joints of left foot; M79.7 Fibromyalgia
CPT/HCPCS: 99214

== ENCOUNTER → 2023-07-13 09:45 | Outpatient (BNVA) | payer MEDICAID, SELFPAY | PROVIDERS: PCP Internal Medicine; Referring Provider Internal Medicine; Visit Provider Internal Medicine Rheumatology | DX: R76.8 Other specified abnormal immunological findings in serum (principal); M79.671 Pain in right foot; M79.672 Pain in left foot; M25.572 Pain in left ankle and joints of left foot; M79.7 Fibromyalgia | CPT/HCPCS: 99212 ==

== ENCOUNTER 2023-07-13 10:45 | Outpatient (REF) | payer MEDICAID, SELFPAY ==
[2023-07-13 13:38] LABS: C Reactive Protein 0.65 mg/dL (< or = 0.50)
[2023-07-13 14:34] LABS: Erythrocyte Sedimentation Rate 16 MM/HR (0-20)
[2023-07-16 12:27] LABS: Cyclic Citrullinated Peptide <16 UNITS
== END 2023-07-13 10:46 | disposition home or self-care (01) ==
LOC: HO.10HDL 10:45
PROVIDERS: Visit Provider Internal Medicine Rheumatology
DX: R76.8 Other specified abnormal immunological findings in serum (principal); M79.671 Pain in right foot; M79.672 Pain in left foot
CPT/HCPCS: 36415; 85652; 86140; 86200

== ENCOUNTER 2023-08-06 14:22 | Outpatient (REF) | payer MEDICAID, SELFPAY | END 2023-08-06 14:23 | disposition home or self-care (01) | LOC: HO.MRI 14:22 | PROVIDERS: PCP Internal Medicine; Visit Provider Internal Medicine Rheumatology | DX: M25.572 Pain in left ankle and joints of left foot (principal) | CPT/HCPCS: 73721 ==

== ENCOUNTER 2023-08-18 09:18 | Outpatient (AMB) | payer MEDICAID, SELFPAY ==
[2023-08-18 09:22] VITALS: BP 112/74; PULSE 78; TEMP 36.2; O2SAT 98; BMI 35.1
--- NOTE | 2023-08-18 09:22 | A.OFFVIS_ITS ---
Intake Vital Signs 08/18/23 09:22 Height 5 ft 5 in Weight 210 lb 15.718 oz BMI 35.1 BP 112/74 Blood Pressure Location Lt brachial Position Sitting Pulse 78 Pulse Source Pulse Oximeter Temp 97.2 F Temp Source Skin Pulse Oximetry (%) 98 Oxygen Delivery Method Room Air Intake Visit Reasons: ankle pain Intake Note: Patient presents today c/o kelly ankle pain, left ankle pain swelling, kelly hand swelling, feet swelling Water And Sewer Systems Superintendent Required: Yes Water And Sewer Systems Superintendent Language: Stretcher Leveler Operator Helper Name: [id number] Information Interpreted: clinical only Allergies penicillin G [PENICILLIN G] Allergy (Unknown, Verified 08/18/23 09:26) ANAPHYLAXIS shrimp Allergy (Verified 08/18/23 09:26) Anaphylaxis Medication List - Last Reconciled 08/18/23 by Akash Herbert MD acetaminophen ER 650 mg PO Q8H PRN alcohol swabs (BD Alcohol Swabs) 0 pad topical BID blood sugar diagnostic (FreeStyle Lite Strips) As directed buspirone 30 mg PO BID qoqpozpnhg-qdfqrmoymrnht-zntq 50-325-40 mg 1 - 2 tabs PO Q6-8H PRN celecoxib 100 mg PO BID cetirizine 1 tab PO DAILY citalopram 20 mg PO DAILY clindamycin phosphate 1% 1 appl topical clonazepam 1.5 mg PO BEDTIME diazepam 1 - 2 mg PO Q12H PRN dicyclomine 20 mg orally before breakfast, lunch, and dinner; diphenhydramine HCl (Banophen) 50 mg PO Q4-6H PRN dulaglutide (Trulicity) 0.75 mg subcut QWEEK ferrous gluconate 324 mg PO QAM fluticasone propionate 50 mcg/actuation 2 sprays intranasal DAILY gabapentin 100 mg PO TID hydrocortisone 2.5% topical BID PRN ketoconazole 2% topical 2XW lancets (FreeStyle Lancets) As directed leg brace (YOUSUF Ankle Brace) As directed lidocaine 5% 1 patch transdermal Q3D PRN lisinopril 10 mg PO DAILY meclizine 25 mg PO TID PRN metformin ER 500 mg PO QPM omeprazole 20 mg PO QAM sodium chloride 0.65% (Saline Nasal) 1 - 2 sprays intranasal Q2-3H PRN tacrolimus 0.1% topical DIRECTED topiramate 1 tab PO DAILY triamcinolone acetonide 0.025% appl topical BID triamcinolone acetonide 0.025% topical BID venlafaxine ER 150 mg PO QAM HPI HPI Comments History of Present Illness Details The patient returns for evaluation of her widespread pains. These pains continue in the neck, shoulders, hands, elbows, lower back, knees and ankles. I had been impressed enough by the ankle pain with a history of swelling to do an MRI of the left ankle. 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 She remains on acetaminophen, ce lecoxib, citalopram, clonazepam, gabapentin 100 t.i.d., and lidocaine patches. She has a positive ARIANA but other serologies for lupus were negative. [facility] Medical History Allergies Headache GERD (gastroesophageal reflux disease) Surgical History History of shoulder surgery History of tubal ligation Hx of tonsillectomy Family History Mother Arthritis Father Diabetes Social History Household Members: Significant Other Are you a primary healthcare network consultant to a significant other at home: No Do you presently have visiting nurse or other home services: No Alcohol intake: former Patient Tobacco Use Status: Former Tobacco user Current occupational status: employed and unemployed Review of Systems Const Details: Daytime fatigue, insomnia at night. Negative for appetite change, weight change, fever, chills, malaise Eyes Details: Occasional headache. Negative for vision change, dry eyes, and dizziness Skin/Breast Details: Negative for itching, rash, hives, Raynaud's symptoms, sun sensitivity, and skin cancer Neuro Details: Negative for epilepsy, palsy, stroke, changes in speech, tingling and weakness Psych Details: Negative for anxiety, depression and stress Endo Details: Negative for polyuria and polydypsia Arnulfo/Lymph Details: Negative for excessive bruising or bleeding. Physical Exam Vital Signs: Last Vital Signs Temp 97.2 F 08/18/23 09:22 Pulse 78 08/18/23 09:22 BP 112/74 08/18/23 09:22 Pulse Ox 98 10/17/23 09:22 Oxygen Delivery Method Room Air 08/18/23 09:22 BMI result Body Mass Index 35.1 APPEARANCE: Patient in no acute distress EXTREMITIES: No edema, no calf tenderness, normal peripheral pulses. JOINT EXAM:?? Cervical Spine:.? Full range of motion without pain; no tenderness. Thoracic Spine:.? No scoliosis.? No tenderness on palpation. Lumbar Spine:.? Alignment normal.? Mild pain with flexion at 45 degrees. There is some paraspinal muscle tenderness. There is also pain with attempts at hyperextension. Straight leg raising is negative. Chest Wall:.? No tenderness, swelling, increased warmth or erythema. Hands:.? Normal pain-free range of motion. There is some slight tenderness at the 2nd 3rd PIP bilaterally but these do not appear to be swollen. There is no flexor tendon triggering, thenar atrophy, or sensory loss. Wrists:.? Slight pain with flexion extension at 80 degrees but no tenderness, swelling, increased warmth or erythema. Elbows:. Normal pain-free range of motion without tenderness, swelling, increased warmth or erythema. Shoulders:.??Right: There is mild pain abduction at 100 degrees or more than 20 degrees of internal or external rotation. Mild anterior tenderness without weakness, adenopathy or swelling. Left: Full range of motion without pain. No tenderness, weakness, swelling, increased warmth or erythema. Hips:.? Full range of motion with mild pain in the lateral posterior buttock region at the extremes of external rotation or abduction. No groin pain with motion. Hip bursa:.? Slight trochanteric tenderness. Knees:?? Normal pain-free range of motion with mild medial compartment tenderness. No effusion, crepitus, swelling, increased warmth or erythema.? Ankles:? Mild pain with extremes of normal range of motion with some mild tenderness, more on the left. There may be some soft tissue fullness in medial lateral regions bilaterally. No increased warmth or erythema. Feet:.? Right: Normal pain-free range of motion with slight 1st MTP bony enlargement but no tenderness, swelling, increased warmth or erythema. Left: There is some tenderness in the instep region anteriorly. This may be accompanied by some bony prominence in the area. There is mild bony enlargement and tenderness at the 1st MTP joint. Other joints have normal pain-free range of motion without tenderness or swelling. Tender points:.? Mild tenderness to digital palpation at the occiput, right trapezius, both second rib, both lateral epicondyle, both greater trochanter areas Results Reviewed Results Reviewed: Laboratory Tests 06/24/23 06/24/23 07/13/23 09:45 09:45 10:50 Hgb 12.3 ESR C-Reactive Protein 0.53 H 0.65 H Cycl Citrul Peptide IgG 07/13/23 10:50 Hgb ESR 16 C-Reactive Protein Cycl Citrul Peptide IgG <16 Laboratory Tests 06/24/23 09:45 Sm (Muahmmad) Antibody <1.0 NEG SM/VISUAL BASIC .NET DEVELOPER IgG Antibody <1.0 NEG Double Strand DNA Ab <1 Complement C3 152 Complement C4 [address] [place] [address] Magnetic Resonance Report Signed Patient: Julia Smith MR#: [id number] : 1975 Acct:[id number] Age/Sex: 48 / F ADM Date: 08/06/[address]: Akash Herbert MD Ordering Physician: Akash Herbert MD Date of Service: 08/06/23 Procedure(s): MR ankle LT wo con Accession Number(s): [id number] cc: Gerry Lopez MD; Akash Herbert MD~ EXAMINATION: MRI ANKLE, LEFT WITHOUT CONTRAST CLINICAL INFORMATION: Intermittent swelling COMPARISON: Left foot radiographs 06/24/2023 TECHNIQUE: MRI without contrast is performed on the left ankle. FINDINGS: The Achilles tendon, posterior tibialis tendon, peroneal tendons, flexor and extensor tendons are intact. Ankle ligaments are intact. No ankle joint effusion. No talar OCD. The plantar fascia is intact. The sinus tarsi is normal. Mild talonavicular osteoarthritis with small dorsal osteophytes. No acute osseous abnormality. The Lisfranc ligament is intact. MR/MR ankle LT wo con IMPRESSION: Mild talonavicular osteoarthritis. Otherwise unremarkable. Dictated By: Anjel Oliva MD Assessment & Plan Assessment & Plan (1) Fibromyalgia: Code(s): M79.7 - Fibromyalgia (2) Osteoarthritis of foot, left: Comment: left talo-naviular OA seen on MRI 08/2023 Code(s): M19.072 - Primary osteoarthritis, left ankle and foot Plan She again has many areas of tenderness without obvious signs of an active inflammatory arthritis. The ARIANA is positive but inflammatory markers and other antibodies were negative. She has many tender points so I think predominantly she has fibromyalgia. The prominent symptoms in the left foot and ankle presumably are explained by the osteoarthritis seen there on MRI. No synovitis was seen in that region. She has been referred to Podiatry about this left foot pain but has not received an appointment yet. For the fibromyalgia I think we could try to intensify her gabapentin treatment with going up to 200 mg 3 times a day gradually from the current 100 t.i.d. She was warned about potential side effects including sedation with daytime use of the gabapentin. Follow-up in 3 months would be reasonable. She should stay with her current antidepressants. Acetaminophen and the Celebrex may also be used for pain. Medications: New gabapentin gradual increase to 2 cap three times a day from 1 cap three times a day. increase by one cap each week 180 caps 2RF M79.7 - Fibromyalgia Coding Level of Care Code Est Pt Level 3 (36267) Diagnoses Fibromyalgia M79.7 Osteoarthritis of foot, left M19.072
== END 2023-08-18 10:04 | disposition home or self-care (01) ==
PROVIDERS: PCP Internal Medicine; Visit Provider Internal Medicine Rheumatology
DX: M79.7 Fibromyalgia (principal); M19.072 Primary osteoarthritis, left ankle and foot
CPT/HCPCS: 99213

== ENCOUNTER → 2023-08-18 09:18 | Outpatient (BNVA) | payer MEDICAID, SELFPAY | PROVIDERS: PCP Internal Medicine; Visit Provider Internal Medicine Rheumatology | DX: M79.7 Fibromyalgia (principal); M19.072 Primary osteoarthritis, left ankle and foot | CPT/HCPCS: 99212 ==

== ENCOUNTER 2023-10-06 13:01 | Outpatient (AMB) | payer MEDICAID, SELFPAY ==
--- NOTE | 2023-10-06 13:20 | A.OFFVIS_ITS ---
Intake Vital Signs 10/06/23 13:21 Height 5 ft 5 in Weight 207 lb BMI 34.4 BP 119/65 Blood Pressure Location Lt brachial Position Sitting Respiration 16 Pulse 76 Pulse Source Pulse Oximeter Pulse Oximetry (%) 98 Oxygen Delivery Method Room Air Intake Visit Reasons: Low Back Pain, Unspecified/confirmed Fixture Builder Required: Yes Fixture Builder Name: Konrad #[id number] Allergies penicillin G [PENICILLIN G] Allergy (Unknown, Verified 08/18/23 09:26) ANAPHYLAXIS shrimp Allergy (Verified 08/18/23 09:26) Anaphylaxis HPI HPI Comments History of Present Illness Details Julia is a very pleasant 48-year-old female who presents to the office today for evaluation management of her chronic lower back pain. Visit was completed with machinist supervisor Konrad, [id number]. Patient reports that she has been suffering with this pain for many years. Patient denies inciting injury, she attributed to work and overuse. She endorses pain across her lower back and upper buttocks. Pain is worse with movement, sitting, walking and standing. If she sits for long time the pain will radiate into her buttocks on both sides. Patient currently taking anti-inflammatory medication and gabapentin. Gabapentin was recently increased but she does not note any improvement in her pain. She does use topical lidocaine patches at home that provide a little relief. She has not attempted physical therapy, home exercise program, manual manipulation by chiropractor, acupuncture, massage or injections. Patient denies prior history of surgery of her neck or back. Patient denies red flag symptoms including new loss of bowel, bladder or saddle anesthesia. She denies electrical, shooting pains down either leg. She denies weakness, numbness, tingling of either lower extremity. In terms of muscle damage condition is described as aching, throbbing, sharp, burning, spasming. Pain is negatively impacting patient's general activity, ability to perform activities of daily living, normal work, sleep and walking. [facility] Medical History Allergies Headache GERD (gastroesophageal reflux disease) Surgical History History of shoulder surgery History of tubal ligation Hx of tonsillectomy Family History Mother Arthritis Father Diabetes Social History Household Members: Significant Other Are you a primary career based intervention coordinator to a significant other at home: No Do you presently have visiting nurse or other home services: No Alcohol intake: former Patient Tobacco Use Status: Former Tobacco user Current occupational status: employed and unemployed Review of Systems Const All systems reviewed & are unremarkable except as noted in HPI and below Physical Exam Vital Signs: Last Vital Signs Pulse 76 10/06/23 13:21 Resp 16 10/06/23 13:21 BP 119/65 10/06/23 13:21 Pulse Ox 98 10/06/23 13:21 Oxygen Delivery Method Room Air 10/06/23 13:21 BMI result Body Mass Index 34.4 General: awake, alert, oriented. Answers questions appropriately. Fully engaged in examination. Skin: warm, dry, intact HEENT: Normocephalic. Hearing intact. Cardiac: External chest normal in appearance. Respiratory: No cough, audible wheezing or stridor. Abdomen: without gross distension. MS: No obvious swelling or deformities. Able to stand on bilateral tiptoes and bilateral heels.? Able to transition from sit to stand unassisted. Ambulates with bilaterally normal heel strike and toe off SLR with and without dorsiflexion negative bilaterally ROM Flexion to 90 degrees, extension 10 degrees Tender to palpation across lower back, midline vertebrae and lumbar paraspinal muscles Tender to palpation bilateral PSIS [place] positive bilaterally Thigh thrust positive bilaterally Terrance negative bilaterally Neurological: Oriented to person, place, time and situation. Thought process intact. No gait abnormalities appreciated. Psychiatric: Appropriate mood and affect. Good judgment and insight. Results Reviewed Results Reviewed: 06/25/23 XR LS IMPRESSION: 1. No significant disc space narrowing or vertebral body height loss in the lumbar spine. There are minimal spondylitic endplate changes. Assessment & Plan Assessment & Plan (1) Sacroiliac joint dysfunction of both sides: Code(s): M53.3 - Sacrococcygeal disorders, not elsewhere classified (2) Lumbar facet arthropathy: Code(s): M47.816 - Spondylosis without myelopathy or radiculopathy, lumbar region Sylvester Dumont is a 48-year-old female who presented to the office today for evaluation management of her chronic lower back pain. History, physical exam provocative testing consistent with lumbar facet arthropathy and bilateral sacroiliac joint dysfunction. Order placed for PT eval and treat. Patient requesting to go to physical therapy office closer to her home as she lives in [place]. Requisition printed and provided to patient before she left the office. Baclofen 5 mg p.o. twice daily as needed for muscle spasms. Advised on cautions for use. All questions concerns were addressed during the [id number] visit. Patient agrees with the plan. Follow-up after physical therapy, sooner if needed. Orders: Orders PT Evaluation and Treatment Today M47.816 - Spondylosis without myelopathy or radiculopathy, lumbar region, M53.3 - Sacrococcygeal disorders, not elsewhere classified Medications: New baclofen 5 mg PO BID PRN 60 tabs 0RF muscle spasm Coding Level of Care Code New Pt Level 4 (84463) Diagnoses Sacroiliac joint dysfunction of both sides M53.3 Lumbar facet arthropathy M47.816
[2023-10-06 13:21] VITALS: BP 119/65; PULSE 76; RESP 16; O2SAT 98; BMI 34.4
== END 2023-10-06 14:01 | disposition home or self-care (01) ==
PROVIDERS: PCP Internal Medicine; Referring Provider Internal Medicine Rheumatology; Visit Provider Registered Nurse Emergency
DX: M53.3 Sacrococcygeal disorders, not elsewhere classified (principal); M47.816 Spondylosis without myelopathy or radiculopathy, lumbar region
CPT/HCPCS: 99204

== ENCOUNTER → 2023-10-06 13:01 | Outpatient (BNVA) | payer MEDICAID, SELFPAY | PROVIDERS: PCP Internal Medicine; Referring Provider Internal Medicine Rheumatology; Visit Provider Registered Nurse Emergency | DX: M53.3 Sacrococcygeal disorders, not elsewhere classified (principal); M47.816 Spondylosis without myelopathy or radiculopathy, lumbar region | CPT/HCPCS: 99212 ==

== ENCOUNTER 2023-11-11 09:58 | Outpatient (AMB) | payer MEDICAID, SELFPAY ==
--- NOTE | 2023-11-11 10:12 | MHC.OFFVIS ---
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 Herbert, presents today for follow up and test results. Reports feet pain x 6 months, requesting Placard form. Does use cane. Litigation Paralegal Required: Yes Litigation Paralegal Language: Ict Programmer Name: Sandeep [id number] Information Interpreted: clinical only Accompanied by: Self / Same As Patient Allergies penicillin G [PENICILLIN G] Allergy (Unknown, Verified 11/11/23 10:26) ANAPHYLAXIS shrimp Allergy (Verified 11/11/23 10:26) Anaphylaxis HPI HPI Comments History of Present Illness Details Miss Dumont, 48 year old F[place], returns for follow-up evaluation of her widespread pains. These pains continue in the neck, shoulders, hands, elbows, lower back, knees and ankles. She has ankle pain with a history of swelling and MRI showed talonavicular osteoarthritis but no inflammatory arthritis. She recieved a left ankle injection from the day care provider which she says has helped with the pain. The patient recounts that her feet especially the left hurts severely at the top and the bottom when she walks, during shopping for example at [employer]. She was given a cane to help with her balance because of her back pain and foot pain. She remains on acetaminophen, celecoxib, citalopram, clonazepam, gabapentin 100 t.i.d., and lidocaine patches. She has a positive ARIANA (1:80) but other serologies for lupus were negative. She is also being treated for Fibromyalgia with Gabapentin, PFSH Medical History (Updated 11/11/23 @ 13:01 by CEZAR Putnam) Pes cavus of both feet Allergies Headache GERD (gastroesophageal reflux disease) Surgical History History of shoulder surgery History of tubal ligation Hx of tonsillectomy Family History Mother Arthritis Father Diabetes Social History Household Members: Significant Other Are you a primary healthcare project manager to a significant other at home: No Do you presently have visiting nurse or other home services: No Alcohol intake: former Patient Tobacco Use Status: Former Tobacco user Current occupational status: employed and unemployed Review of Systems Const All systems reviewed & are unremarkable except as noted in HPI and below Physical Exam Vital Signs: Last Vital Signs Temp 97 F 11/11/23 10:25 Pulse 90 11/11/23 10:25 BP 100/70 11/11/23 10:25 Pulse Ox 97 11/11/23 10:25 Oxygen Delivery Method Room Air 11/11/23 10:25 BMI result Body Mass Index 34.8 APPEARANCE: Patient in no acute distress, nourished, groomed EXTREMITIES: No edema, no calf tenderness, normal peripheral pulses. JOINT EXAM:?? Cervical Spine:.? Full range of motion without pain; no tenderness. Thoracic Spine:.? No scoliosis.? No tenderness on palpation. Lumbar Spine:.? Alignment normal.? Mild pain with flexion at 45 degrees. There is some paraspinal muscle tenderness. There is also pain with attempts at hyperextension. Straight leg raising is negative. Chest Wall:.? No tenderness, swelling, increased warmth or erythema. Hands:.? Normal pain-free range of motion. There is some slight tenderness at the 2nd 3rd PIP bilaterally but these do not appear to be swollen. There is no flexor tendon triggering, thenar atrophy, or sensory loss. Wrists:.? Slight pain with flexion extension at 80 degrees but no tenderness, swelling, increased warmth or erythema. Elbows:. Normal pain-free range of motion without tenderness, swelling, increased warmth or erythema. Shoulders:.??Right: There is mild pain abduction at 100 degrees or more than 20 degrees of internal or external rotation. Mild anterior tenderness without weakness, adenopathy or swelling. Left: Full range of motion without pain. No tenderness, weakness, swelling, increased warmth or erythema. Hips:.? Full range of motion with mild pain in the lateral posterior buttock region at the extremes of external rotation or abduction. No groin pain with motion. Hip bursa:.? Slight trochanteric tenderness. Knees:?? Normal pain-free range of motion with mild medial compartment tenderness. No effusion, crepitus, swelling, increased warmth or erythema.? Ankles:? Mild pain with extremes of normal range of motion with some mild tenderness, more on the left. There may be some soft tissue fullness in medial lateral regions bilaterally. No increased warmth or erythema. Feet:.? Right: Normal pain-free range of motion with slight 1st MTP bony enlargement but no tenderness, swelling, increased warmth or erythema. Left: There is some tenderness in the instep region anteriorly. This may be accompanied by some bony prominence in the area. There is mild bony enlargement and tenderness at the 1st MTP joint. Other joints have normal pain-free range of motion without tenderness or swelling. Tenderness to both dorsum and plantar arches with palpation Tender points:.? Mild tenderness to digital palpation at the occiput, right trapezius, both second rib, both lateral epicondyle, both greater trochanter areas Assessment & Plan Assessment & Plan (1) Fibromyalgia: Code(s): M79.7 - Fibromyalgia (2) Osteoarthritis of foot, left: Comment: left talo-naviular OA seen on MRI 08/2023 Code(s): M19.072 - Primary osteoarthritis, left ankle and foot Qualifiers: Osteoarthritis type: primary Qualified Code(s): M19.072 - Primary osteoarthritis, left ankle and foot (3) Pes cavus of both feet: Code(s): Q66.71 - Congenital pes cavus, right foot; Q66.72 - Congenital pes cavus, left foot Plan #Right Foot OA/Bilateral Pes Cavus: The prominent symptoms in the left foot and ankle presumably are explained by the osteoarthritis seen there on MRI. No synovitis was seen in that region. The Shellfish Processing Laborer injected the left ankle region and the patient states she has had some improvement. There is still tenderness on exam to ankle and the arch of her foot. I suspect that she would benefit from arch support that would help to take some pressure off the talonavicular joint and reduce the fatigue in that joint. I recommend to patient that she gets her feet assess for appropriate arch support for the pes cavus. Acetaminophen and the Celebrex may also be used for pain. I have completed the her request for temporary Handicapped decal. #Fibromyalgia: The patient has many areas of tenderness without obvious signs of an active inflammatory arthritis. The ARIANA is positive but inflammatory markers and other antibodies were negative. She has many tender points so I think predominantly she has fibromyalgia. For the fibromyalgia I think we could try to intensify her gabapentin treatment with going up to 200 mg 3 times a day gradually from the current 100 t.i.d. She was warned about potential side effects including sedation with daytime use of the gabapentin. Follow-up in 3 months would be reasonable. She should stay with her current antidepressants. I have spent 35 minutes reviewing chart, evaluating patient, and documenting. Coding Level of Care Code Est Pt Level 4 (85311) Diagnoses Fibromyalgia M79.7 Primary osteoarthritis of left foot M19.072 Osteoarthritis type: primary Pes cavus of both feet Q66.71; Q66.72
[2023-11-11 10:25] VITALS: BP 100/70; PULSE 90; TEMP 36.1; O2SAT 97; BMI 34.8
== END 2023-11-11 11:03 | disposition home or self-care (01) ==
PROVIDERS: PCP Internal Medicine; Visit Provider Nurse Practitioner Family
DX: M79.7 Fibromyalgia (principal); M19.072 Primary osteoarthritis, left ankle and foot; Q66.71 Congenital pes cavus, right foot; Q66.72 Congenital pes cavus, left foot
CPT/HCPCS: 99214

== ENCOUNTER → 2023-11-11 09:58 | Outpatient (BNVA) | payer MEDICAID, SELFPAY | PROVIDERS: PCP Internal Medicine; Visit Provider Nurse Practitioner Family | DX: M79.7 Fibromyalgia (principal); M19.072 Primary osteoarthritis, left ankle and foot; Q66.72 Congenital pes cavus, left foot; Q66.71 Congenital pes cavus, right foot | CPT/HCPCS: 99212 ==

== ENCOUNTER 2023-12-20 16:47 | Emergency (ER) | payer MEDICAID, SELFPAY ==
--- NOTE | ~2023-12-20 | XR_ITS ---
Examination: XR foot LT min 3V, XR ankle LT min 3V Indication: pain to dorsal aspect of foot Comparison: No pertinent prior studies are currently available for comparison. Technique: 2 views the left ankle with 3 views of the left foot including a lateral view of the foot and ankle Findings: Left ankle: No significant soft tissue swelling. No acute underlying fracture or dislocation. Ankle mortise appears to be intact. Tiny calcaneal heel spur is noted. Left foot: No significant soft tissue swelling. Bones are normal anatomic alignment. I do not appreciate any acute fracture or dislocation about the foot XR/XR foot LT min 3V Impression: No acute fracture or dislocation. Tiny calcaneal heel spur.
--- NOTE | ~2023-12-20 | XR_ITS ---
Examination: XR foot LT min 3V, XR ankle LT min 3V Indication: pain to dorsal aspect of foot Comparison: No pertinent prior studies are currently available for comparison. Technique: 2 views the left ankle with 3 views of the left foot including a lateral view of the foot and ankle Findings: Left ankle: No significant soft tissue swelling. No acute underlying fracture or dislocation. Ankle mortise appears to be intact. Tiny calcaneal heel spur is noted. Left foot: No significant soft tissue swelling. Bones are normal anatomic alignment. I do not appreciate any acute fracture or dislocation about the foot XR/XR ankle LT min 3V Impression: No acute fracture or dislocation. Tiny calcaneal heel spur.
[2023-12-20 16:57] VITALS: BP 118/76; PULSE 87; RESP 16; TEMP 36.9; O2SAT 98; BMI 35.0
--- NOTE | 2023-12-20 16:58 | ED.GENADULT ---
HPI - General Adult General Chief complaint: General Medical Stated complaint: feet pain, arthritis Time Seen by Provider: 12/20/23 17:53 Source: patient and shampoo technician (Nepali) Mode of arrival: ambulatory Limitations: no limitations History of Present Illness HPI narrative: 48 year old femle with pmhx significant for OA of bilateral feet, fibromyalgia, pes cavus of bilateral feet, restless legs syndrome, GERD presents to the ED today for evaluation of acute on chronic left foot/ankle pain x3 days. She currently follows with a electronic test technician for the osteoarthritis of her feet. Reports having a steroid injection 7-8 months ago. She had to cancel her appointment with him this week due to the snow. States she was able to reschedule however appointment isn't until January. She endorses pain to lateral and medial aspects of left ankle and along the top of her left foot. States she has to limp due to the pain. She currently takes Celebrex, Tylenol and gabapentin at for pain. The only thing that has worked for her in the past have been steroid injections. Denies new injury or trauma to the left ankle or foot. Denies recent travel or long car rides. Denies fever, chills, calf pain/tenderness. A production sorter was utilized during this visit to communicate with patient. Related Data Home Medications Medication Instructions Recorded Confirmed cetirizine 10 mg tablet 1 tab PO DAILY 01/09/21 08/18/23 topiramate 50 mg tablet 1 tab PO DAILY headache 01/09/21 08/18/23 acetaminophen 650 mg 650 mg PO Q8H PRN mild pain 04/30/23 08/18/23 tablet,extended release blood sugar diagnostic (FreeStyle #10 ea 04/30/23 08/18/23 Lite Strips) buspirone 30 mg tablet 30 mg PO BID 04/30/23 08/18/23 kauzljbauy-tgikrktyumabd-hgbgrvlr 1 - 2 tab PO Q6-8H PRN 04/30/23 08/18/23 50 mg-325 mg-40 mg tablet citalopram 10 mg tablet 20 mg PO DAILY 04/30/23 08/18/23 clonazepam 1 mg tablet 1.5 mg PO BEDTIME 04/30/23 08/18/23 diazepam 2 mg tablet 1 - 2 mg PO Q12H PRN dizziness 04/30/23 08/18/23 diphenhydramine HCl 25 mg capsule 50 mg PO Q4-6H PRN 04/30/23 08/18/23 (Banophen) ferrous gluconate 324 mg (38 mg 324 mg PO QAM 04/30/23 08/18/23 iron) tablet fluticasone propionate 50 2 spray intranasal DAILY 04/30/23 08/18/23 mcg/actuation nasal spray,suspension ketoconazole 2 % shampoo topical 2XW 04/30/23 08/18/23 lancets 28 gauge (FreeStyle #100 ea 04/30/23 08/18/23 Lancets) lidocaine 5 % topical patch 1 patch transdermal Q3D PRN pain 04/30/23 08/18/23 lisinopril 10 mg tablet 10 mg PO DAILY 04/30/23 08/18/23 sodium chloride 0.65 % nasal spray 1 - 2 spray intranasal Q2-3H PRN 04/30/23 08/18/23 aerosol (Saline Nasal) congestion triamcinolone acetonide 0.025 % appl topical BID 04/30/23 08/18/23 topical cream alcohol swabs (BD Alcohol Swabs) 0 pad topical BID 06/24/23 08/18/23 celecoxib 100 mg capsule 100 mg PO BID 06/24/23 08/18/23 clindamycin phosphate 1 % topical 1 appl topical 06/24/23 08/18/23 solution tacrolimus 0.1 % topical ointment topical DIRECTED 06/24/23 08/18/23 venlafaxine 150 mg 150 mg PO QAM 06/24/23 08/18/23 capsule,extended release 24 hr dicyclomine 20 mg tablet 20 mg PO .COMPLEX 07/13/23 08/18/23 meclizine 25 mg tablet 25 mg PO TID PRN 07/13/23 08/18/23 hydrocortisone 2.5 % topical topical BID PRN 08/18/23 08/18/23 ointment omeprazole 20 mg capsule,delayed 20 mg PO QAM 08/18/23 08/18/23 release triamcinolone acetonide 0.025 % topical BID 08/18/23 08/18/23 lotion gabapentin 100 mg capsule 200 mg PO TID 11/11/23 Previous Rx's Medication Instructions Recorded leg brace (NAVARRO Ankle Brace) #1 ea 07/16/23 baclofen 5 mg tablet 5 mg PO BID PRN muscle spasm #60 12/15/23 tabs prednisone 20 mg tablet 20 mg PO DAILY #5 tabs 12/20/23 Allergies Allergy/AdvReac Type Severity Reaction Status Date / Time penicillin G [PENICILLIN G] Allergy Unknown ANAPHYLAXIS Verified 12/20/23 16:57 shrimp Allergy Anaphylaxis Verified 12/20/23 16:57 Review of Systems Review of Systems: Constitutional: No fever, chills, fatigue, night sweats, weight changes ENT/Mouth: No ear pain, hearing loss, nasal congestion, sinus pain, rhinorrhea, sore throat Eyes: No eye pain, swelling, redness, vision changes, discharge Cardio: No chest pain, palpitations, JOSUE, orthopnea, peripheral edema Pulm: No SOB, cough, sputum, wheezing, dyspnea, hemoptysis GI: No nausea, vomiting, hematemesis, abdominal pain, diarrhea, constipation, hematochezia, melena : No irregular bleeding, dysuria, frequency, urgency, hesitancy, hematuria, flank pain, urinary flow changes, urinary incontinence or retention MSK: No back pain, neck pain, joint pain, myalgias, +left ankle/foot pain Skin: No lesions, rashes Neuro: No weakness, numbness, paresthesias, LOC, dizziness, headache Psych: No anxiety/panic, depression, SI/HI, AH/VH Heme/Lymph: No bruising, bleeding, lymphadenopathy Endocrine: No polyuria, polydipsia, temperature intolerance All other systems reviewed and are negative. [facility] Past Medical History Attestation statement: The following information was validated with the patient. Source: old records reviewed and nursing notes reviewed Medical History Pes cavus of both feet Allergies Headache GERD (gastroesophageal reflux disease) Surgical History History of shoulder surgery History of tubal ligation Hx of tonsillectomy Family History Family History Mother Arthritis Father Diabetes Social History Social History Household Members: Significant Other Are you a primary health care technician to a significant other at home: No Do you presently have visiting nurse or other home services: No Alcohol intake: former Patient Tobacco Use Status: Former Tobacco user Advance Directives: No Advance Directives Information Provided: No Current occupational status: employed and unemployed Physical Exam ED Vital Signs: Vital Signs - 24 hr 12/20/23 16:57 Temperature 98.4 F Pulse Rate 87 Respiratory Rate 16 Blood Pressure 118/76 Pulse Oximetry 98 Oxygen Delivery Method Room Air BMI result Body Mass Index 35.0 Vital signs stable, afebrile. Const General: cooperative, healthy appearing, comfortable and no acute distress Orientation/consciousness: patient oriented x3 Limitations: no limitations HENMT Head: Yes normal to inspection, Yes normocephalic and Yes atraumatic Eyes General: appearance normal, both eyes and all related structures Conjunctivae: conjunctivae normal Sclerae: sclerae normal Pupils: Equal, round and reactive pupils present Skin General skin exam: no rashes or lesions noted Neuro General: patient oriented x3 Cranial nerves: Yes Equal, round and reactive pupils present Extrem Other: + full ROM intact to left ankle. Full ROM intact to all toes of left foot. Tender to palpation over both medial and lateral malleoli without palpable deformity. Tender to palpation over the lateral aspect of the dorsal foot without palpable deformity. 2+ dp/pt pulses intact. Ambulating with antalgic gait Course Course Course Narrative: RME: 48 yo female hx of pes cavus of b/l feet, OA, fibromyalgia, GERD here for eval of acute on chronic left foot/ankle pain x3 days. currently follows with electronic test technician. Injection 2 months ago. missed her appointment with him this week d/t and had to reschedule to january. takes gabapenin, celebrex, and tylenol for pain at home. MRI from 08/2023 shows mild talonavicular osteoarthritis, otherwise normal . denies new injury/trauma to foot. states she cannot sleep with this pain. atalgic gait. ttp over dorsal aspect of left foot and both medial and lateral malleoli. no palpable deformity or overlying skin changes. xrs ordered. Full HPI, ROS and PE to be performed by the primary ED provider. Reevaluation(s) Reevaluation #1: 1819-- Xrays of left foot/ankle do not demonstrate new fracture or dislocation. There is a calcaneal heel spur however this does not correlate with patient's pain. This is likely acute on chronic arthritis that will require further pain management out patient. she currently follows with podiatry and has had corticosteroid injections in the past. she is on various pain medications for fibromyalgia and I do not feel that controlled substances are warranted at this time. will send home with navarro wrap for compression along with short course of steroids. advised her to call her electronic test technician in the morning to try and move her appointment up. Patient has remained stable throughout ED visit today. Discussed worrisome signs and symptoms and when to return to the ED. All questions answered at this time. Patient is agreeable with disposition and stable for discharge. Procedures Orthopedic Splinting/Casting Injury #1: Side: left Lower Extremity Injury Location: ankle and foot Lower Extremity Immobilizer: Navarro wrap Medical Decision Making Medical Decision Making MDM Narrative: 48 year old femle with pmhx significant for OA of bilateral feet, fibromyalgia, pes cavus of bilateral feet, restless legs syndrome, GERD presents to the ED today for evaluation of acute on chronic left foot/ankle pain x3 days. Vital signs stable. Afebrile. Patient is nontoxic appearing and in NAD. On exam, full ROM intact to left ankle. Full ROM intact to all toes of left foot. Tender to palpation over both medial and lateral malleoli without palpable deformity. Tender to palpation over the lateral aspect of the dorsal foot without palpable deformity. 2+ dp/pt pulses intact. Ambulating with antalgic gait. Clinical suspicion for acute on chronic OA, fibromyalgia. Lower suspicion for fracture or dislocation. Unlikely charcot foot, gout, pseudogout, septic joint, DVT, NV compromise or threat to limb. Differential Diagnosis Differential Diagnoses: The differential diagnosis associated with the presentation includes as above. Admission/Observation Not indicated. Independent Interpretation I performed an independent interpretation of an: Plain X-Ray Interpretation: I have personally reviewed patient's x-rays and agree with radiologist's interpretation. Radiology Impression Discussion of test interpretation with radiology: I have reviewed the radiologist's reading. Radiologist Impression: XR foot LT min 3V Impression: No acute fracture or dislocation. Tiny calcaneal heel spur. XR ankle LT min 3V Impression: No acute fracture or dislocation. Tiny calcaneal heel spur. External Record Review External record reviewed: Inpatient record, Office record, Outpatient record, Prior outpatient labs, Prior outpatient radiology, Primary care record and Outside ED record Prescription Management I considered prescription management with: Pain Medication and Other (prednisone) Chronic Conditions Patient?s care impacted by: Diabetes and Other (OA, fibromyalgia) Social Determinants Patient?s care significantly limited by Social Determinants of Health including: Other Social Determinant of Health Discharge Plan Discharge Clinical Impression: Osteoarthritis of ankle and foot Qualifiers: Laterality: left Qualified Code(s): M19.072 - Primary osteoarthritis, left ankle and foot Patient Disposition: Home, Self-Care Instructions: R.I.C.E. Treatment (ED), Steroid Joint Injection (DC) Additional Instructions: The x-rays of your left foot and ankle do not show acute fracture or dislocation. They do show chronic arthritic changes. Treatment for this is with NSAIDs. You may continue taking Celebrex at home. Do not take this with other NSAIDs such as ibuprofen or naproxen as this can increase risk of GI bleed. A short course of prednisone has been sent to your pharmacy. Take 1 pill daily for the next 5 days. You are diabetic and need to check your sugars regularly as prednisone can increase blood sugar. You may also try RICE treatment (rest, ice, compress, and elevated the foot/ankle). you have been provided with an navarro wrap to help with compression. PLEASE CALL AND MAKE AN APPOINTMENT WITH YOUR INDUSTRIAL TRUCK MECHANIC to see if they can get you an appointment sooner than January as you may require another injection. If symptoms worsen, please return to the ED. Las radiograf?as de wyatt pie y tobillo izquierdos no muestran fractura ni dislocaci?n aguda. Muestran cambios artr?ticos cr?nicos. El tratamiento para esto es con BARB. Puede seguir tomando Celebrex en casa. No tome esto con otros BARB kushal ibuprofeno o naproxeno, ya que pueden aumentar el riesgo de hemorragia gastrointestinal. Le flowers enviado un ciclo corto de prednisona a wyatt farmacia. Manele 1 pastilla al d?a alisa los pr?ximos 5 d?as. Usted es diab?gifty y necesita controlar lillian niveles de az?car con regularidad, ya que la prednisona puede aumentar el az?car en keshav. Tambi?n puede probar el tratamiento RICE (descanso, hielo, compresas y elevaci?n del pie/tobillo). Se le antoine proporcionado josué envoltura Navarro para ayudar con la compresi?n. Llame a wyatt pod?logo ma?zafar por la ma?zafar y billie si pueden conseguirle josué gabriel antes de lam, ya que es posible que necesite otra inyecci?n. Si los s?ntomas empeoran, regrese al servicio de urgencias. Prescriptions: New prednisone 20 mg tablet 20 mg PO DAILY Qty: 5 0RF No Action (DME) NAVARRO Ankle Brace Misc See Rx Instructions .Route Qty: 1 0RF Rx Instructions: As directed baclofen 5 mg tablet 5 mg PO BID PRN (Reason: muscle spasm) Qty: 60 0RF cetirizine 10 mg tablet 1 tab PO DAILY topiramate 50 mg tablet 1 tab PO DAILY triamcinolone acetonide 0.025 % cream topical BID ketoconazole 2 % shampoo topical 2XW buspirone 30 mg tablet 30 mg PO BID ferrous gluconate 324 mg (38 mg iron) tablet 324 mg PO QAM Saline Nasal 0.65 % aerosol,spray 1 - 2 spray intranasal Q2-3H PRN (Reason: congestion) lidocaine 5 % adhesive patch,medicated 1 patch transdermal Q3D PRN (Reason: pain) diphenhydramine HCl [Banophen] 25 mg capsule 50 mg PO Q4-6H PRN diazepam 2 mg tablet 1 - 2 mg PO Q12H PRN (Reason: dizziness) thzvznanve-cstnljhhzrhkk-piqw 50-325-40 mg tablet 1 - 2 tab PO Q6-8H PRN acetaminophen 650 mg tablet extended release 650 mg PO Q8H PRN (Reason: mild pain) clonazepam 1 mg tablet 1.5 mg PO BEDTIME lisinopril 10 mg tablet 10 mg PO DAILY fluticasone propionate 50 mcg/actuation spray,suspension 2 spray intranasal DAILY citalopram 10 mg tablet 20 mg PO DAILY (DME) lancets [FreeStyle Lancets] 28 gauge misc See Rx Instructions .ROUTE .MEDSUPPLY Qty: 100 Rx Instructions: As directed (DME) FreeStyle Lite Strips Strip See Rx Instructions .ROUTE BID Qty: 10 Rx Instructions: As directed tacrolimus 0.1 % ointment topical DIRECTED alcohol swabs [BD Alcohol Swabs] Pads, Medicated 0 pad topical BID venlafaxine 150 mg capsule,extended release 24hr 150 mg PO QAM celecoxib 100 mg capsule 100 mg PO BID clindamycin phosphate 1 % solution 1 appl topical meclizine 25 mg tablet 25 mg PO TID PRN dicyclomine 20 mg tablet 20 mg PO .COMPLEX Rx Instructions: 20 mg orally before breakfast, lunch, and dinner; omeprazole 20 mg capsule,delayed release(DR/EC) 20 mg PO QAM hydrocortisone 2.5 % ointment topical BID PRN triamcinolone acetonide 0.025 % lotion topical BID gabapentin 100 mg capsule 200 mg PO TID Referrals: Nitin Frey MD [Physician] - Interventions: ED Discharge Assessment Last Done: 12/20/23 18:57 Discharge Date/Time: 12/20/23 18:58 Print Language: Nepali
== END 2023-12-20 18:58 | disposition home or self-care (01) ==
PROVIDERS: Emergency Provider Student in an Organized Health Care Education/Training Program; PCP Internal Medicine
DX: M19.072 Primary osteoarthritis, left ankle and foot (principal); M77.32 Calcaneal spur, left foot; M25.572 Pain in left ankle and joints of left foot
CPT/HCPCS: 73610; 73630; 99282; 99283

== ENCOUNTER 2024-02-12 08:53 | Day surgery (SDC) | payer MEDICAID, SELFPAY ==
[2024-02-09 13:56] VITALS: BMI 34.1
--- NOTE | 2024-02-11 11:04 | HO.ANESPROP2 ---
Documented by User: Aleah Jack NP 02/11/24 11:04 HPI - Anesthesia Eval Consult details Narrative: 48yo F for Upper Endoscopy and Colonoscopy FOR[facility]LY [facility], [facility] Active Problems Active Problems: All Active Problems Sacroiliac joint dysfunction of both sides (Acute) Lumbar facet arthropathy (Acute) Osteoarthritis of foot, left (Acute) Fibromyalgia (Acute) Ankle pain, left (Acute) ARIANA positive (Acute) Low back pain (Acute) Foot pain, bilateral (Acute) Bilateral hand pain (Acute) Restless legs syndrome (Acute) REM behavioral disorder (Acute) Excessive daytime sleepiness (Acute) Snoring (Acute) Adhesive capsulitis of right shoulder (Acute) Stiffness of right shoulder joint (Acute) Status post right rotator cuff repair (Acute) Pes cavus of both feet (Acute) GERD (gastroesophageal reflux disease) (Acute) Past Medical History Medical History (Updated 12/21/23 @ 00:00 by Lalo Sy) Pes cavus of both feet Allergies Headache GERD (gastroesophageal reflux disease) Family History Family History Mother Arthritis Father Diabetes Surgical History Surgical History (Updated 02/09/24 @ 13:49 by Chula Cowart RN) History of shoulder surgery History of tubal ligation Hx of tonsillectomy Social History Social History Household Members: Significant Other Are you a primary critical care physician assistant to a significant other at home: No Do you presently have visiting nurse or other home services: No Alcohol intake: former Patient Tobacco Use Status: Former Tobacco user Are you DNR?: No Advance Directives: No Advance Directives Information Provided: Yes Patient : No Current occupational status: employed and unemployed Meds Allergies Allergy/AdvReac Type Severity Reaction Status Date / Time penicillin G [PENICILLIN G] Allergy Severe ANAPHYLAXIS Verified 02/09/24 13:54 shrimp Allergy Severe Anaphylaxis Verified 02/09/24 13:54 Home Medications ?Medication ?Instructions ?Recorded ?Confirmed ?Last Taken ?Type cetirizine 10 mg tablet 1 tab PO DAILY 01/09/21 02/09/24 Unknown History topiramate 50 mg tablet 1 tab PO DAILY headache 01/09/21 02/09/24 Unknown History acetaminophen 650 mg 650 mg PO Q8H PRN mild pain 04/30/23 02/09/24 Unknown History tablet,extended release buspirone 30 mg tablet 30 mg PO BID 04/30/23 02/09/24 Unknown History jacjalnbyk-kggedgervoaxa-qljgnhco 1 - 2 tab PO Q6-8H PRN Migraine 04/30/23 02/09/24 Unknown History 50 mg-325 mg-40 mg tablet Headache citalopram 10 mg tablet 20 mg PO DAILY 04/30/23 02/09/24 Unknown History clonazepam 1 mg tablet 1.5 mg PO BEDTIME 04/30/23 02/09/24 Unknown History diphenhydramine HCl 25 mg capsule 50 mg PO Q4-6H PRN Anxiety 04/30/23 02/09/24 Unknown History (Banophen) ferrous gluconate 324 mg (38 mg 324 mg PO QAM 04/30/23 02/09/24 Unknown History iron) tablet fluticasone propionate 50 2 spray intranasal DAILY 04/30/23 02/09/24 Unknown History mcg/actuation nasal spray,suspension ketoconazole 2 % shampoo 1 appl topical 2XW 04/30/23 02/09/24 Unknown History lidocaine 5 % topical patch 1 patch transdermal Q3D PRN pain 04/30/23 02/09/24 Unknown History lisinopril 10 mg tablet 10 mg PO DAILY 04/30/23 02/09/24 02/12/24 History sodium chloride 0.65 % nasal spray 1 - 2 spray intranasal Q2-3H PRN 04/30/23 02/09/24 Unknown History aerosol (Saline Nasal) congestion clindamycin phosphate 1 % topical 1 appl topical DAILY 06/24/23 02/09/24 Unknown History solution tacrolimus 0.1 % topical ointment 1 appl topical DIRECTED 06/24/23 02/09/24 Unknown History venlafaxine 150 mg 150 mg PO QAM 06/24/23 02/09/24 Unknown History capsule,extended release 24 hr dicyclomine 20 mg tablet 20 mg PO .COMPLEX 07/13/23 02/09/24 Unknown History hydrocortisone 2.5 % topical 1 appl topical BID 08/18/23 02/09/24 Unknown History ointment omeprazole 20 mg capsule,delayed 20 mg PO QAM 08/18/23 02/09/24 Unknown History release gabapentin 100 mg capsule 200 mg PO TID 11/11/23 02/09/24 Unknown History Exam Height,Weight and Vital Signs: Height 5 ft 5.75 in Weight 95.254 kg Assessment and Plan Assessment Anesthesia Assessment: Chart Reviewed Documented by User: Sergo Muhammad MD 02/12/24 11:05 [facility] Past Medical History Medical History (Updated 12/21/23 @ 00:00 by Lalo Sy) Pes cavus of both feet Allergies Headache GERD (gastroesophageal reflux disease) Family History Family History Mother Arthritis Father Diabetes Family history of problems with anesthesia: No Surgical History Surgical History (Updated 02/09/24 @ 13:49 by Chula Cowart RN) History of shoulder surgery History of tubal ligation Hx of tonsillectomy History of Problems with Anesthesia: No Social History Social History Household Members: Significant Other Are you a primary critical care physician assistant to a significant other at home: No Do you presently have visiting nurse or other home services: No Alcohol intake: former Patient Tobacco Use Status: Former Tobacco user Are you DNR?: No Advance Directives: No Advance Directives Information Provided: Yes Patient : No Current occupational status: employed and unemployed Meds Allergies Allergy/AdvReac Type Severity Reaction Status Date / Time penicillin G [PENICILLIN G] Allergy Severe ANAPHYLAXIS Verified 02/09/24 13:54 shrimp Allergy Severe Anaphylaxis Verified 02/09/24 13:54 Home Medications ?Medication ?Instructions ?Recorded ?Confirmed ?Last Taken ?Type cetirizine 10 mg tablet 1 tab PO DAILY 01/09/21 02/09/24 Unknown History topiramate 50 mg tablet 1 tab PO DAILY headache 01/09/21 02/09/24 Unknown History acetaminophen 650 mg 650 mg PO Q8H PRN mild pain 04/30/23 02/09/24 Unknown History tablet,extended release buspirone 30 mg tablet 30 mg PO BID 04/30/23 02/09/24 Unknown History rorutzamty-lwbvqgwfopnop-uoczstay 1 - 2 tab PO Q6-8H PRN Migraine 04/30/23 02/09/24 Unknown History 50 mg-325 mg-40 mg tablet Headache citalopram 10 mg tablet 20 mg PO DAILY 04/30/23 02/09/24 Unknown History clonazepam 1 mg tablet 1.5 mg PO BEDTIME 04/30/23 02/09/24 Unknown History diphenhydramine HCl 25 mg capsule 50 mg PO Q4-6H PRN Anxiety 04/30/23 02/09/24 Unknown History (Banophen) ferrous gluconate 324 mg (38 mg 324 mg PO QAM 04/30/23 02/09/24 Unknown History iron) tablet fluticasone propionate 50 2 spray intranasal DAILY 04/30/23 02/09/24 Unknown History mcg/actuation nasal spray,suspension ketoconazole 2 % shampoo 1 appl topical 2XW 04/30/23 02/09/24 Unknown History lidocaine 5 % topical patch 1 patch transdermal Q3D PRN pain 04/30/23 02/09/24 Unknown History lisinopril 10 mg tablet 10 mg PO DAILY 04/30/23 02/09/24 02/12/24 History sodium chloride 0.65 % nasal spray 1 - 2 spray intranasal Q2-3H PRN 04/30/23 02/09/24 Unknown History aerosol (Saline Nasal) congestion clindamycin phosphate 1 % topical 1 appl topical DAILY 06/24/23 02/09/24 Unknown History solution tacrolimus 0.1 % topical ointment 1 appl topical DIRECTED 06/24/23 02/09/24 Unknown History venlafaxine 150 mg 150 mg PO QAM 06/24/23 02/09/24 Unknown History capsule,extended release 24 hr dicyclomine 20 mg tablet 20 mg PO .COMPLEX 07/13/23 02/09/24 Unknown History hydrocortisone 2.5 % topical 1 appl topical BID 08/18/23 02/09/24 Unknown History ointment omeprazole 20 mg capsule,delayed 20 mg PO QAM 08/18/23 02/09/24 Unknown History release gabapentin 100 mg capsule 200 mg PO TID 11/11/23 02/09/24 Unknown History Exam Airway Mallampati Class: III TM Dist: <=3cm Neck ROM: Full Loose/Missing/Broken Teeth: No Heart: rrr Lungs: cta Assessment and Plan Assessment Anesthesia Assessment: Anesthesia Plan Discussed Final Anesthetic Review Family History of Problems with Anesthesia: No History of Problems with Anesthesia: No NPO: Yes ASA Class: III Final Preanesthetic Review: No Changes in Pt Med Stat, Meds/Allgs Chart Reviewed, Consent Obtained/Reviewed and Anes Risks/Benef Reviewed Patient Risk: Intermediate Procedure Risk: Intermediate Anesthetic Plan Anesthetic Plan: MAC: Disposition: Standard PACU
[2024-02-12 10:21] VITALS: BP 121/67; PULSE 76; RESP 20; TEMP 36.9; O2SAT 98; BMI 34.7
[2024-02-12] MEDS: Lactated Ringers 1,000 ML 100 ML IVCONT (10:44)
--- NOTE | 2024-02-12 12:05 | MHC.SHP ---
Pre-Procedural Eval Section A - 24 Hr Update-Section A only Date of Service: 02/12/24 The patient is an INPATIENT: No Changes since office visit: No Cold of Flu in the past 2 weeks, No New Medical Problems, No Changes in Medication and No Patient answered all questions The patient has been examined within 24 hours of the surgical procedure. The History & Physical has been completed within 30 days and I have reviewed it.: Yes Section B - Complete if H&P > 30 days Chief Complaint: Other fecal abnormalities,gerd Allergies: Allergies Allergy/AdvReac Type Severity Reaction Status Date / Time penicillin G [PENICILLIN G] Allergy Severe ANAPHYLAXIS Verified 02/09/24 13:54 shrimp Allergy Severe Anaphylaxis Verified 02/09/24 13:54 Plan I have reviewed the history and physical and performed a pertinent physical examination on my patient. No changes have occurred unless specified. Time Spent With Patient Time: Total time managing care of this patient today ____ minutes.
[2024-02-12 12:55] VITALS: BP 97/37; PULSE 77; RESP 18; TEMP 36.1; O2SAT 98
[2024-02-12 13:15] VITALS: BP 110/62; PULSE 64; RESP 17; TEMP 36.1; O2SAT 100
--- NOTE | 2024-02-12 13:30 | OP_ITS ---
DATE OF SERVICE: 02/12/2024 SURGEON: Wesley Olivo MD INDICATIONS: Gastroesophageal reflux disease and abnormal findings in stool. PREOPERATIVE DIAGNOSIS: POSTOPERATIVE DIAGNOSIS: PROCEDURE PERFORMED: Upper endoscopy with biopsy, colonoscopy to the terminal ileum with snare polypectomy. ESTIMATED BLOOD LOSS: COMPLICATIONS: ANESTHESIA: Monitored anesthesia care. ASSISTANTS: SPECIMENS: DESCRIPTION OF PROCEDURE: History and physical performed. The risks and benefits of the procedure were explained to the patient. Informed consent was obtained. The patient was placed in the left lateral decubitus position. The Olympus videogastroscope was introduced into the esophagus, stomach, and duodenum. Examination was performed and the scope was removed. She was repositioned for colonoscopy. A digital rectal exam was performed and was found to be normal. The Olympus pediatric videocolonoscope was introduced into the rectum and advanced to the cecum. The cecum was identified by transillumination, palpation, and identification of ileocecal valve. Examination was performed. The scope was removed. She tolerated both procedures well and was returned to recovery room in stable condition. FINDINGS: Upper endoscopy, esophagus: The esophagus showed a slightly irregular EG junction. This was biopsied. There was no esophagitis. Stomach: The stomach was normal. This was biopsied in the antrum. Duodenum: The bulb and 2nd portion were normal. Random biopsies were obtained from the 2nd portion. Colonoscopy: The terminal ileum was normal. The visualized colonic mucosa was within normal limits without evidence of masses or ulcers. A single polyp measuring approximately 10 mm was identified at 20 cm and removed with a hot snare. The polyp was recovered via suction. There was some stool coating mucosa in the right colon, which limited the sensitivity examination for detection of small polyps. This was washed and suctioned. No other polyps were identified. There was some hyperplastic appearing tissue in the rectum. Retroflexed examination showed some small internal hemorrhoids. IMPRESSION: 1. Gastroesophageal reflux disease. 2. Colon polyp. RECOMMENDATIONS: Follow up the biopsy results. MD DAYANA Coker/RAFAEL / [phone]
== END 2024-02-12 13:45 | disposition home or self-care (01) ==
PROVIDERS: PCP Internal Medicine; Visit Provider Internal Medicine Gastroenterology
PROC: (CPT 45385; principal; 2024-02-12 11:40)
DX: R19.5 Other fecal abnormalities (principal); K63.5 Polyp of colon; K21.9 Gastro-esophageal reflux disease without esophagitis; K29.70 Gastritis, unspecified, without bleeding; B96.81 Helicobacter pylori [H. pylori] as the cause of diseases classified elsewhere; J30.9 Allergic rhinitis, unspecified; M79.7 Fibromyalgia; R51.9 Headache, unspecified; E11.9 Type 2 diabetes mellitus without complications; Z79.51 Long term (current) use of inhaled steroids; Z79.899 Other long term (current) drug therapy; Z87.891 Personal history of nicotine dependence; Z88.0 Allergy status to penicillin
CPT/HCPCS: 45385; 43239; 88305; 88313; 88342; J2704

== ENCOUNTER 2024-02-16 11:03 | Outpatient (REF) | payer MEDICAID, SELFPAY ==
--- NOTE | ~2024-02-16 | XR_ITS ---
EXAMINATION: XR BILATERAL KNEES CLINICAL INFORMATION: Patient states bilateral knee pain for 2 weeks, denies injury. TECHNIQUE: 4 views right knee. 5 views left knee. COMPARISON: None available. FINDINGS: RIGHT KNEE: Mild narrowing of the lateral compartment. Small joint effusion. LEFT KNEE: Mild narrowing of the medial compartment with minimal medial marginal osteophytes. Small joint effusion. XR/XR knee LT 4V IMPRESSION: 1. Mild degenerative changes bilateral knees. 2. Small bilateral joint effusions.
--- NOTE | ~2024-02-16 | XR_ITS ---
EXAMINATION: XR BILATERAL KNEES CLINICAL INFORMATION: Patient states bilateral knee pain for 2 weeks, denies injury. TECHNIQUE: 4 views right knee. 5 views left knee. COMPARISON: None available. FINDINGS: RIGHT KNEE: Mild narrowing of the lateral compartment. Small joint effusion. LEFT KNEE: Mild narrowing of the medial compartment with minimal medial marginal osteophytes. Small joint effusion. XR/XR knee RT 4V IMPRESSION: 1. Mild degenerative changes bilateral knees. 2. Small bilateral joint effusions.
== END 2024-02-16 11:04 | disposition home or self-care (01) ==
LOC: HO.HHCX 11:03
PROVIDERS: Visit Provider Internal Medicine
DX: M25.561 Pain in right knee (principal); M25.562 Pain in left knee
CPT/HCPCS: 36415; 73564; 85025

== ENCOUNTER 2024-02-16 11:29 | Outpatient (REF) | payer MEDICAID, SELFPAY ==
[2024-02-16 13:40] LABS: MANUAL DIFF FLAG NO
[2024-02-16 13:58] LABS: Basophils Percent Auto 0.3 % (0-2); Eosinophils Absolute Auto 0.1 X10*3/uL (0.0-0.4); Eosinophils Percent Auto 1.6 % (0-4); Hematocrit 38.9 % (37.0-47.0); Imm Gran Abs Auto 0.02 X10*3/uL (0.00-0.03); Imm Gran Pct Auto 0.3 % (0.0-0.4); Lymphocytes Absolute Auto 2.8 X10*3/uL (1.2-4.9); Mean Corpuscular HGB Conc 33.4 g/dl (31.0-35.0); Mean Corpuscular Hemoglobin 30.2 pg (27.0-33.0); Mean Corpuscular Volume 90.5 fL (80.0-98.0); Mean Platelet Volume 10.1 fL (9.4-12.3); Monocytes Absolute Auto 0.6 X10*3/uL (0.1-1.2); Monocytes Percent Auto 7.7 % (2-11); Neutrophils Absolute Auto 4.2 x10*3/uL (2.0-8.3); Neutrophils Percent Auto 54.1 % (45-73); Platelet Count 279 X10*3/uL (160-400); Red Cell Distribution Width 13.2 % (11.0-16.0); White Blood Count 7.7 X10*3/uL (4.8-10.8)
== END 2024-02-16 11:30 | disposition home or self-care (01) ==
LOC: HO.HHCL 11:29
PROVIDERS: Visit Provider Internal Medicine
DX: D50.9 Iron deficiency anemia, unspecified (principal)
CPT/HCPCS: 36415; 85025

== ENCOUNTER 2024-03-10 08:37 | Outpatient (REF) | payer MEDICAID, SELFPAY ==
--- NOTE | ~2024-03-10 | XR_ITS ---
EXAMINATION: XR KNEE AP STANDING CLINICAL INFORMATION: Pain in bilateral knees. COMPARISON: 02/16/2024. TECHNIQUE: AP bilateral standing view of the knees was obtained. FINDINGS: Mild narrowing of bilateral medial compartments with tiny medial marginal osteophytes. XR/XR knee standing BI IMPRESSION: Mild degenerative changes in the bilateral knees.
== END 2024-03-10 08:38 | disposition home or self-care (01) ==
LOC: HO.HOSX 08:37
PROVIDERS: Visit Provider Orthopaedic Surgery
DX: M23.8X2 Other internal derangements of left knee (principal); M23.8X1 Other internal derangements of right knee
CPT/HCPCS: 73565; 99212

== ENCOUNTER 2024-03-10 10:11 | Outpatient (AMB) | payer MEDICAID, SELFPAY ==
--- NOTE | 2024-03-10 10:15 | A.OFFVIS_ITS ---
Intake Visit Reasons: New Prob - Bilateral knee OA Intake Note: Julia is a 49 year old female who presents today for a new problem visit with complaints of bilateral knee pain. Patient reports that she has had ongoing pain for about 2-3 months now. The left knee is worse than the right. She has no previous therapies tried for the knees. Allergies penicillin G [PENICILLIN G] Allergy (Severe, Verified 02/09/24 13:54) ANAPHYLAXIS shrimp Allergy (Severe, Verified 02/09/24 13:54) Anaphylaxis HPI HPI New Prob - Bilateral knee OA: Details: Julia is a 49-year-old woman who comes in with a 2 month history of left knee. She denies injury. She describes pain with flexion of the left knee. Stairs are also problematic but less so. The problem is most noticeable when she is in bed at night or when she bends the knee unexpectedly. She occasionally feels some catching which resolves with extension of the knee. [facility] Medical History (Updated 03/10/24 @ 10:48 by Troy Bueno MD) Pes cavus of both feet Allergies Headache GERD (gastroesophageal reflux disease) Surgical History (Updated 02/09/24 @ 13:49 by Chula Cowart RN) History of shoulder surgery History of tubal ligation Hx of tonsillectomy Family History Mother Arthritis Father Diabetes Social History Household Members: Significant Other Are you a primary ambulatory care to a significant other at home: No Do you presently have visiting nurse or other home services: No Alcohol intake: former Patient Tobacco Use Status: Former Tobacco user Current occupational status: employed and unemployed Physical Exam Const General: cooperative, healthy appearing, no acute distress, well developed and alert HEENT Head: Yes normal to inspection, Yes normocephalic and Yes atraumatic Mouth: moist mucous membranes Eyes General: appearance normal, both eyes and all related structures EOM: EOMs intact bilaterally Chest Other: no audible wheezing. Resp Other: No audible wheezing Effort & Inspection: normal respiratory effort Back/Spine/Pelvis Cervical Spine: normal cervical lordosis Skin General skin exam: no rashes or lesions noted Neuro General: no focal motor deficits Extrem Other: Full range of motion by lateral knees. On the left she has pain with hyp erflexion of the left knee and a positive medial Cheyenne's. Psych Appearance: grossly normal and well kempt Mental Status: mental status grossly normal Speech and movement: Normal speech and movement present Affect: normal affect Attitude: cooperative Results Reviewed Results Reviewed: I personally reviewed relevant radiographs. Unremarkable radiographs Assessment & Plan Assessment & Plan (1) Internal derangement of left knee: Code(s): M23.92 - Unspecified internal derangement of left knee Category: Medical Plan: This is a 49-year-old woman with internal derangement of the left knee. She appears have mechanical symptoms and I recommend an MRI of the left knee. I discussed this with her. She will see me when completed. Orders: Orders XR knee standing BI Today M25.569 - Pain in unspecified knee MR knee LT wo con Today M23.92 - Unspecified internal derangement of left knee Coding Level of Care Code Est Pt Level 4 (48870) Diagnoses Internal derangement of left knee M23.92
== END 2024-03-10 10:51 | disposition home or self-care (01) ==
PROVIDERS: PCP Internal Medicine; Referring Provider Internal Medicine; Visit Provider Orthopaedic Surgery
DX: M23.92 Unspecified internal derangement of left knee (principal)
CPT/HCPCS: 99213

== ENCOUNTER 2024-03-14 10:51 | Outpatient (AMB) | payer MEDICAID, SELFPAY ==
--- NOTE | 2024-03-14 10:54 | A.OFFVIS_ITS ---
Vital Signs 03/14/24 11:00 Height 5 ft 5.75 in Weight 206 lb 2.115 oz BMI 33.5 BP 120/60 Blood Pressure Location Rt brachial Position Sitting Pulse 80 Pulse Source Pulse Oximeter Pulse Oximetry (%) 97 Oxygen Delivery Method Room Air Intake Visit Reasons: Fibromyalgia Intake Note: Patient last seen by Alyssa 11/11/23 presents today for follow up. Pt reports new onset of bilateral knee pain, L>R x 1.5 months Chemical Laboratory Chief Required: Yes Chemical Laboratory Chief Language: Tool Crib Attendant Name: Gerson Tang Accompanied by: Self / Same As Patient Allergies penicillin G [PENICILLIN G] Allergy (Severe, Verified 03/14/24 11:02) ANAPHYLAXIS shrimp Allergy (Severe, Verified 03/14/24 11:02) Anaphylaxis Medication List - Last Reconciled 03/14/24 by Cristino Mathias MD acetaminophen ER 650 mg PO Q8H PRN buspirone 30 mg PO BID izmjwwpeyt-xgfkpsjdlfrmq-dkfg 50-325-40 mg 1 - 2 tabs PO Q6-8H PRN cetirizine 1 tab PO DAILY citalopram 20 mg PO DAILY clindamycin phosphate 1% 1 appl topical DAILY clonazepam 1.5 mg PO BEDTIME dicyclomine 20 mg orally before breakfast, lunch, and dinner; diphenhydramine HCl (Banophen) 50 mg PO Q4-6H PRN ferrous gluconate 324 mg PO QAM fluticasone propionate 50 mcg/actuation 2 sprays intranasal DAILY gabapentin 200 mg PO TID hydrocortisone 2.5% 1 appl topical BID ketoconazole 2% 1 appl topical 2XW lidocaine 5% 1 patch transdermal Q3D PRN lisinopril 10 mg PO DAILY omeprazole 20 mg PO QAM sodium chloride 0.65% (Saline Nasal) 1 - 2 sprays intranasal Q2-3H PRN tacrolimus 0.1% 1 appl topical DIRECTED topiramate 1 tab PO DAILY venlafaxine ER 150 mg PO QAM HPI Comments Details: 49-year-old female with fibromyalgia and osteoarthritis returns for follow-up. States that she continues to have pain all over. Most recently she has been having bilateral knee pain as well as bilateral ankle pain more severe on the left. She had left ankle injection by flight kitchen manager 3 months ago with relief. She states that the injections generally last about 3 months. She states that she will see the flight kitchen manager soon. She takes gabapentin 200 mg t.i.d.. She states that when she stops taking them she develops worsening pain especially in her PIPs especially when bending them. He denies any history suggestive of uveitis or colitis. She is unaware of any family history of an autoimmune rheumatic disease [facility] Medical History Pes cavus of both feet Allergies Headache GERD (gastroesophageal reflux disease) Surgical History History of shoulder surgery History of tubal ligation Hx of tonsillectomy Family History Mother Arthritis Father Diabetes Social History Household Members: Significant Other Are you a primary managed care provider to a significant other at home: No Do you presently have visiting nurse or other home services: No Alcohol intake: former Patient Tobacco Use Status: Former Tobacco user Current occupational status: employed and unemployed Review of Systems [facility] Reports arthralgias, Denies joint swelling and Reports stiffness Physical Exam Vital Signs: Last Vital Signs Pulse 80 03/14/24 11:00 BP 120/60 03/14/24 11:00 Pulse Ox 97 03/14/24 11:00 Oxygen Delivery Method Room Air 03/14/24 11:00 BMI result Body Mass Index 33.5 Const General: cooperative, healthy appearing and comfortable Nutritional Appearance: obese Orientation/consciousness: patient oriented x3 Limitations: no limitations HEENT Head: Yes normocephalic and Yes atraumatic Mouth: moist mucous membranes Resp Effort & Inspection: normal respiratory effort and able to speak in complete sentences Auscultation: clear to auscultation bilaterally Cardio Rate: regular rate Rhythm: regular rhythm Skin General skin exam: no rashes or lesions noted Neuro General: patient oriented x3 Extrem Other: Minimal osteoarthritic changes of both hands with no active synovitis Normal nailfold capillaroscopy Limited range of motion of right shoulder Normal range of motion of left shoulder No significant fibromyalgia tender points today Significant left knee pain with full flexion No ankle swelling or tenderness bilaterally today No MTP tenderness bilaterally today Results Reviewed Results Reviewed: Laboratory Tests 06/24/23 06/24/23 07/13/23 09:45 09:45 10:50 Hgb 12.3 ESR C-Reactive Protein 0.53 H 0.65 H Cycl Citrul Peptide IgG 07/13/23 10:50 Hgb ESR 16 C-Reactive Protein Cycl Citrul Peptide IgG <16 Laboratory Tests 06/24/23 09:45 Sm (Muhammad) Antibody <1.0 NEG SM/[employer] IgG Antibody <1.0 NEG Double Strand DNA Ab <1 Complement C3 152 Complement C4 [address] [address] Magnetic Resonance Report Signed Patient: Julia Smith MR#: [id number] : 1975 Acct:[id number] Age/Sex: 48 / F ADM Date: 08/06/[address]: Akash Herbert MD Ordering Physician: Akash Herbert MD Date of Service: 08/06/23 Procedure(s): MR ankle LT wo con Accession Number(s): [id number] cc: Gerry Lopez MD; Akash Herbert MD~ EXAMINATION: MRI ANKLE, LEFT WITHOUT CONTRAST CLINICAL INFORMATION: Intermittent swelling COMPARISON: Left foot radiographs 06/24/2023 TECHNIQUE: MRI without contrast is performed on the left ankle. FINDINGS: The Achilles tendon, posterior tibialis tendon, peroneal tendons, flexor and extensor tendons are intact. Ankle ligaments are intact. No ankle joint effusion. No talar OCD. The plantar fascia is intact. The sinus tarsi is normal. Mild talonavicular osteoarthritis with small dorsal osteophytes. No acute osseous abnormality. The Lisfranc ligament is intact. MR/MR ankle LT wo con IMPRESSION: Mild talonavicular osteoarthritis. Otherwise unremarkable. Dictated By: Anjel Oliva MD Assessment & Plan Assessment & Plan (1) Generalized osteoarthritis: Code(s): M15.9 - Polyosteoarthritis, unspecified Category: Medical Plan: This is a 49-year-old female who presents for follow-up. She was previously evaluated by Dr. Herbert then seen once by Alyssa Devlin. She was evaluated for a positive ARIANA but subsequent sub serologies were unremarkable. Her most bothersome joint was her left ankle which prompted a left ankle MRI which showed talonavicular osteoarthritis. She follows up regularly with flight kitchen manager and gets corticosteroid injections which provided 3 months relief. She was prescribed gabapentin for presumed fibromyalgia however, upon my evaluation today I believe it is helping her generalized osteoarthritis. Continue with gabapentin 200 mg t.i.d.. Patient patient has mild elevation of her CRP and I will continue to monitor for evolution of a seronegative arthritis. Follow Up in 3 months (2) Internal derangement of left knee: Code(s): M23.92 - Unspecified internal derangement of left knee Category: Medical Plan: Recently evaluated by orthopedist and left knee MRI was ordered to evaluate for internal derangement (3) ARIANA positive: Code(s): R76.8 - Other specified abnormal immunological findings in serum Category: Medical Plan: With negative sub serologies. Significance is unclear at this stage Plan I spent 30 minutes reviewing patient's chart, evaluating patient, , counseling patient and documenting in the chart Medications: New gabapentin 200 mg (2 x 100 mg) PO TID 180 caps 2RF M79.7 - Fibromyalgia Coding Level of Care Code Est Pt Level 4 (09984) Diagnoses Generalized osteoarthritis M15.9 Internal derangement of left knee M23.92 AIRANA positive R76.8
[2024-03-14 11:00] VITALS: BP 120/60; PULSE 80; O2SAT 97; BMI 33.5
== END 2024-03-14 11:21 | disposition home or self-care (01) ==
LOC: HO.RHE 10:51
PROVIDERS: PCP Internal Medicine; Referring Provider Internal Medicine; Visit Provider Student in an Organized Health Care Education/Training Program
DX: M15.9 Polyosteoarthritis, unspecified (principal); M23.92 Unspecified internal derangement of left knee; R76.8 Other specified abnormal immunological findings in serum
CPT/HCPCS: 99214

== ENCOUNTER → 2024-03-14 10:51 | Outpatient (BNVA) | payer MEDICAID, SELFPAY | PROVIDERS: PCP Internal Medicine; Visit Provider Student in an Organized Health Care Education/Training Program | DX: M15.9 Polyosteoarthritis, unspecified (principal); M23.92 Unspecified internal derangement of left knee; R76.8 Other specified abnormal immunological findings in serum | CPT/HCPCS: 99212 ==

== ENCOUNTER 2024-04-09 06:58 | Emergency (ER) | payer MEDICAID, SELFPAY ==
--- NOTE | ~2024-04-09 | US_ITS ---
EXAMINATION: US ABDOMEN LIMITED CLINICAL INFORMATION: Epigastric pain. COMPARISON: None available. TECHNIQUE: Real-time imaging of the right upper quadrant abdominal viscera. FINDINGS: PANCREAS: Normal. LIVER: Normal. The liver is normal in size. The liver contour is normal. Slightly increased hepatic echogenicity nonspecific though may reflect hepatic steatosis. No focal hepatic lesion. There is no intrahepatic biliary duct dilatation seen. GALLBLADDER: Normal. The gallbladder is physiologically distended without evidence of stones, sludge, polyps, wall thickening or pericholecystic fluid. Sonographic Rider sign is negative. COMMON BILE DUCT: Normal in caliber measuring 0.6 cm in diameter. RIGHT KIDNEY: Right renal interpolar calculus measuring 2 mm No hydronephrosis. No renal focal parenchymal lesions. The kidney measures 11.7 cm in maximum dimension. FREE FLUID: None. US/US abdomen limited IMPRESSION: 1. Slightly increased hepatic echogenicity nonspecific though may reflect hepatic steatosis. 2. Right renal interpolar calculus measuring 2 mm without hydronephrosis.
--- NOTE | ~2024-04-09 | CT_ITS ---
EXAMINATION: CT ABDOMEN AND PELVIS WITH CONTRAST CLINICAL INFORMATION: Abdominal pain and diarrhea COMPARISON: 03/17/2023 TECHNIQUE: Multidetector volumetric images were obtained from the superior aspect of the liver through the pubic symphysis following administration 85 mL of Omnipaque 350 intravenous contrast. Sagittal and coronal reformatted images were obtained on the technologist's workstation. Oral contrast: No This CT examination was performed using dose optimization techniques as appropriate, variously including the following: *Automated exposure control *Adjustment of mA and/or kV according to patient size (this includes techniques or standardized protocols for targeted exams where dose is matched to indication/reason for exam; i.e. extremities or head) *Use of iterative reconstruction technique DLP: 812 mGy-cm FINDINGS: LUNG BASES: The visualized lung bases are unremarkable. LIVER, GALLBLADDER, AND BILIARY TREE: The liver is normal in size, shape, and attenuation. No focal hepatic lesion or biliary ductal dilatation is present. The gallbladder is unremarkable with no evidence of radiopaque gallstones, gallbladder wall thickening, or obvious pericholecystic inflammatory changes. PANCREAS: Unremarkable. SPLEEN: Unremarkable. ADRENAL GLANDS: Unremarkable. KIDNEYS AND URETERS: There is nonobstructing 0.4 cm stone with attenuation of 320 HU. Left kidney revealed exophytic interpolar cortical 1.3 cm cyst. BLADDER: Unremarkable. GASTROINTESTINAL TRACT: The small and large bowel are unremarkable. The appendix is borderline by size measured between 0.6 and 0.7 cm with appendicoliths and fluid and there are no secondary signs of appendicitis ABDOMINAL WALL: No significant hernia is appreciated. LYMPH NODES: Normal. VASCULAR: Unremarkable. PELVIC VISCERA: Unremarkable. OSSEOUS STRUCTURES: Unremarkable. CT/CT abdomen pelvis w IV con IMPRESSION: 1. No explanation for abdominal pain and diarrhea. 2. Nonobstructing nephrolithiasis on the left. 3. Borderline size of appendix without secondary signs of appendicitis. Fleischner guidelines were followed.
[2024-04-09 07:25] VITALS: BP 130/72; PULSE 89; RESP 16; TEMP 37.3; O2SAT 97; BMI 33.9
[2024-04-09 07:46] LABS: MANUAL DIFF FLAG NO
[2024-04-09 07:47] LABS: Basophils Percent Auto 0.1 % (0-2); Eosinophils Absolute Auto 0.1 X10*3/uL (0.0-0.4); Eosinophils Percent Auto 0.6 % (0-4); Hematocrit 40.6 % (37.0-47.0); Hemoglobin 13.4 g/dl (12.0-16.0); Imm Gran Abs Auto 0.02 X10*3/uL (0.00-0.03); Imm Gran Pct Auto 0.3 % (0.0-0.4); Lymphocytes Absolute Auto 0.9 X10*3/uL (1.2-4.9); Mean Corpuscular Hemoglobin 30.3 pg (27.0-33.0); Mean Corpuscular Volume 91.9 fL (80.0-98.0); Mean Platelet Volume 9.5 fL (9.4-12.3); Monocytes Absolute Auto 0.3 X10*3/uL (0.1-1.2); Monocytes Percent Auto 3.9 % (2-11); Neutrophils Absolute Auto 6.6 x10*3/uL (2.0-8.3); Neutrophils Percent Auto 84.1 % (45-73); Platelet Count 284 X10*3/uL (160-400); Red Blood Count 4.42 X10*6/uL (4.20-5.50); Red Cell Distribution Width 13.1 % (11.0-16.0); White Blood Count 7.9 X10*3/uL (4.8-10.8)
[2024-04-09 07:53] VITALS: BP 123/78; PULSE 83; RESP 18
--- NOTE | 2024-04-09 07:54 | ED_ITS ---
HPI - Nausea/Vomiting/Diarrhea General Chief complaint: Nausea/Vomiting/Diarrhea Stated complaint: headache diarrhea nausea abd pain Time Seen by Provider: 04/09/24 07:52 Source: patient and RN notes reviewed Mode of arrival: ambulatory Limitations: no limitations History of Present Illness ED Provider: Kriss Askew PA-C HPI Narrative: This is a 49-year-old female, with a history of hypertension, hyperlipidemia, and diabetes, who presents emergency department with complaints of diarrhea, nausea, and epigastric pain since yesterday. She also endorses a headache which started this morning. Patient reports that she ate pork yesterday morning, and started to develop cramping, and diarrhea at 1:00 p.m. yesterday. She approximates that she has had many episodes of diarrhea. Denies any bloody or black stool. She does report that she was prescribed antibiotics about 1 month ago. She was on antibiotics for 2 weeks. Denies any recent travel, surgeries or hospitalizations. Denies fevers, chills, vomiting. No other complaints or concerns at this time. MD elicited complaint: nausea, diarrhea and abdominal pain Onset (ago): day(s) Description of diarrhea: watery Associated nausea: Yes Associated abdominal pain: Yes Location of pain: epigastric Pain consistency: intermittent Severity: moderate Quality: cramping Exacerbating factors: eating Relieving factors: none Context: recent antibiotic use Associated symptoms: headaches and nausea/vomiting Related Data Previous Rx's ?Medication ?Instructions ?Recorded ondansetron HCl 4 mg tablet 4 mg PO Q6H PRN nausea and 04/09/24 vomiting #10 tabs Allergies Allergy/AdvReac Type Severity Reaction Status Date / Time Penicillins [PCN] Allergy Unknown Verified 04/09/24 07:26 Review of Systems 2 Review of Systems: Yes all other systems are reviewed and are negative Constitutional: Constitutional: Reports as per HPI Gastrointestinal: Gastrointestinal: Reports nausea PMFSH Past Medical History Attestation statement: The following information was validated with the patient. Social History Social History Smoked in Last 30 Days: No Use of substances other than those prescribed or required for medical reasons: No Advance Directives: No Advance Directives Information Provided: No Physical Exam 2 Vital Signs: Vital Signs: Last Vital Signs Temp 97.6 F 04/09/24 14:28 Pulse 70 04/09/24 14:28 Resp 16 04/09/24 14:28 BP 114/69 04/09/24 14:28 Pulse Ox 97 04/09/24 14:28 O2 Del Method Room Air 04/09/24 14:28 BMI result Body Mass Index 33.9 Const: General: cooperative, comfortable and no acute distress O rientation/consciousness: patient oriented x3 Limitations: no limitations HEENT: Head: Yes normal to inspection, Yes normocephalic and Yes atraumatic Ears: hearing grossly normal bilaterally General nose exam: Normal external nose present Face and sinus: Yes normal facial exam Mouth: Normal oral and palatal mucosa present, oropharynx normal and moist mucous membranes Throat: Yes posterior oropharynx normal Eyes: General: appearance normal, both eyes and all related structures E yelids: Yes eyelids normal Conjunctivae: conjunctivae normal Sclerae: s clerae normal Pupils: Equal, round and reactive pupils present EOM: EOMs intact bilaterally Neck: Neck: Yes normal visual inspection, Yes full ROM and Yes no lymphadenopathy Lymphatic: no lymphadenopathy noted Chest: Chest palpation & inspection: normal inspection of the chest Resp: Effort & Inspection: normal respiratory effort and able to speak in complete sentences Auscultation: clear to auscultation bilaterally, no crackles, no rales, no rhonchi and no wheezes Cardio: Rate: regular rate Rhythm: regular rhythm Heart sounds: S1 normal heart sound present and S2 normal heart sound present GI: Other: Tenderness palpation in the epigastrium. Mild tenderness palpation in the right upper quadrant Inspection: Yes normal to inspection Skin: General skin exam: no rashes or lesions noted Trauma: no lacerations or abrasions Wounds: no wounds Neuro: General: patient oriented x3 and moves all extremities Cranial nerves: Yes Equal, round and reactive pupils present Extrem: General: Yes normal to inspection Right upper extremity: normal to inspection Left upper extremity: normal to inspection Right lower extremity: normal to inspection Left lower extremity: normal to inspection Course Reevaluation(s) Reevaluation #1: Patient re-evaluated, nausea has improved. Labs returned, no leukocytosis, stable H&H, no electrolyte derangement, slight hyperglycemia at 137., urine does show moderate blood, and rbc's, otherwise unremarkable. She was able to provide a stool sample she does express some burning epigastric pain, at this time I think we can trial a GI cocktail to see if this improves her symptoms. Ultrasound returns revealing slight increased hepatic echogenicity nonspecific though may reflect hepatic steatosis. There is also a right renal interpolar calculus measuring 2 mm without hydronephrosis. This is unlikely the source of her pain, symptoms consistent with gastritis like pain. 0 re-evaluate. Stool cultures pending. Viral swabs pending. Time: 09:42 Reevaluation #2: Patient eating and drinking, she is feeling better however still has diarrhea. She has stable, no abdominal pain, symptoms likely viral in nature. Given return precautions. She understands agrees with plan. CT scan revealing borderline size of appendix however secondary signs of appendicitis. She has no right lower quadrant therefore this is unlikely Patient stable for discharge. Medications Administered Discontinued Medications Generic Name Dose Route Start Last Admin Trade Name Freq PRN Reason Stop Dose Admin Acetaminophen 975 mg 04/09/24 09:46 04/09/24 09:54 Acetaminophen 325 Mg Tablet PO 04/09/24 09:47 975 mg ONCE ONE Administration Al Hydroxide/Mg Hydroxide 30 ml 04/09/24 09:46 04/09/24 09:55 Magnesium Hydrox/Alum Hydrox 30 Ml Oral.Susp PO 04/09/24 09:47 30 ml ONCE ONE Administration Belladonna Alkaloids/Phenobarbital 10 ml 04/09/24 09:46 04/09/24 09:55 Phenobarb/Hyoscy/Atropine/Scop 10 Ml Elixir PO 04/09/24 09:47 10 ml ONCE ONE Administration Sodium Chloride 1,000 mls @ 999 mls/hr 04/09/24 08:13 04/09/24 09:28 Ns IV 04/09/24 09:13 Infused .Q1H1M ONE Infusion Sodium Chloride 1,000 mls @ 999 mls/hr 04/09/24 09:47 04/09/24 11:10 Ns IV 04/09/24 10:47 Infused .Q1H1M ONE Infusion Iohexol 100 ml 04/09/24 11:19 04/09/24 11:20 Iohexol 350 Mg/Ml 100 Ml Infus..Btl IV 04/09/24 11:20 85 ml ONCE ONE Administration Lidocaine HCl 15 ml 04/09/24 09:46 04/09/24 09:55 Lidocaine Hcl Viscous 2 % 15 Ml Solution MUCOUS MEM 04/09/24 09:47 15 ml ONCE ONE Administration Ondansetron HCl 4 mg 04/09/24 08:13 04/09/24 08:20 Ondansetron Hcl 4 Mg/2 Ml Vial IVPUSH 04/09/24 08:14 4 mg ONCE ONE Administration Medical Decision Making Medical Decision Making [facility] Narrative: This is a 49-year-old female who presents emergency department with complaints of diarrhea, epigastric pain and nausea since yesterday. Patient was recently on antibiotics about 2 weeks ago for treatment of H pylori She does have tenderness palpation in the epigastrium and right upper quadrant. Differential diagnoses include gastritis, gastroenteritis, electrolyte derangement, atypical presentation of ACS-unlikely, infectious diarrhea. On arrival, vital signs within normal limits. She is speaking in full sentences under no acute distress, will obtain labs, EKG, UA, stool cultures, as well as ultrasound. Differential Diagnosis Differential Diagnoses: The differential diagnosis associated with the presentation includes See above Lab Data [facility] Lab Attestation statement: I reviewed the patient's lab results. No leukocytosis, stable H&H, chemistry revealing mild hyperglycemia at 1:37 a.m., she does have a history of diabetes, normal lipase, and liver enzymes 04/09/24 07:41 04/09/24 07:41 Labs: Lab Results 04/09/24 04/09/24 04/09/24 Range/Units 07:41 08:46 09:24 WBC 7.9 (4.8-10.8) X10*3/uL RBC 4.42 (4.20-5.50) X10*6/uL Hgb 13.4 (12.0-16.0) g/dl Hct 40.6 (37.0-47.0) % MCV 91.9 (80.0-98.0) fL MCH 30.3 (27.0-33.0) pg MCHC 33.0 (31.0-35.0) g/dl RDW 13.1 (11.0-16.0) % Plt Count 284 (160-400) X10*3/uL MPV 9.5 (9.4-12.3) fL Immature Gran % (Auto) 0.3 (0.0-0.4) % Neut % (Auto) 84.1 H (45-73) % Lymph % (Auto) 11.0 L (20-40) % Hale % (Auto) 3.9 (2-11) % Eos % (Auto) 0.6 (0-4) % Baso % (Auto) 0.1 (0-2) % Lymph # (Auto) 0.9 L (1.2-4.9) X10*3/uL Hale # (Auto) 0.3 (0.1-1.2) X10*3/uL Eos # (Auto) 0.1 (0.0-0.4) X10*3/uL Baso # (Auto) 0.0 (0.0-0.2) X10*3/uL Abs Immat Gran (auto) 0.02 (0.00-0.03) X10*3/uL Absolute Neuts (auto) 6.6 (2.0-8.3) x10*3/uL Absolute Nucleated RBC 0.000 (0.0-0.012) X10*3/uL Nucleated RBC % (auto) 0.0 (0.0-0.2) /100WBC Sodium 137 (135-145) mmol/L Potassium 4.1 (3.3-5.1) mmol/L Chloride 107 (96-108) mmol/L Carbon Dioxide 21 L (22-29) mmol/L Anion Gap 13 (12-20) BUN 14 (9-16) mg/dL Creatinine 0.86 (0.5-1.4) mg/dL Estim Creat Clear Calc 89.8 Estimated GFR > 60 Random Glucose 137 H (60-115) mg/dL Calcium 9.2 (8.4-10.2) mg/dL Total Bilirubin 0.6 (0.0-1.0) mg/dL AST 21 (5-31) U/L ALT 28 (0-31) U/L Alkaline Phosphatase 64 (39-117) U/L Troponin I High Sens < 2.7 (<3.5-17.0) ng/L Total Protein 7.4 (6.5-8.0) g/dL Albumin 4.2 (3.5-5.0) g/dL Lipase 20 (8-78) U/L Urine Color Yellow Urine Appearance Clear Urine pH 5.5 (5.0-9.0) Ur Specific [place] 1.025 (1.005-1.025) Urine Protein Negative (Neg-Trace) mg/dL Urine Glucose (UA) Negative (Negative) mg/dL Urine Ketones Negative (Negative) mg/dL Urine Blood Moderate (2+) H (Negative) Urine Nitrite Negative (Negative) Ur Leukocyte Esterase Negative (Negative) Urine RBC 11-20 H (0-2) /HPF Urine WBC 0-5 (0-5) /HPF Ur Squamous Epith Cells 3-5 (0-2) /HPF Urine Bacteria None Seen (None Seen) Hyaline Casts 0-2 (0-2) /LPF Stl C. cayetanensis PCR Not Detected (Not Detect.) Stool Rotavirus A PCR Not Detected (Not Detect.) Stl Adenov F 40/41 PCR Not Detected (Not Detect.) Stool Astrovirus (PCR) Not Detected (Not Detect.) Stool Campylobacter PCR Not Detected (Not Detect.) Stool Cryptosporidium PCR Not Detected (Not Detect.) Stl Sh Tox Pr E STEC PCR Not Detected (Not Detect.) Stool E coli O157 PCR Not applicable (Not Detect.) Stl Enterotoxigenic E PCR Not Detected (Not Detect.) Stool EPEC (PCR) Not Detected (Not Detect.) Stool EAEC (PCR) Not Detected (Not Detect.) Stl E. histolytica PCR Not Detected (Not Detect.) Stool Giardia Lamblia PCR Not Detected (Not Detect.) Stl P. shigelloides PCR Not Detected (Not Detect.) Stool Salmonella PCR Not Detected (Not Detect.) Stool Sapovirus (PCR) Not Detected (Not Detect.) Stl Shigella/EIEC PCR Not Detected (Not Detect.) St Y.enterocolitica PCR Not Detected (Not Detect.) Stool Vibrio (PCR) Not Detected (Not Detect.) Stl Vibrio cholerae PCR Not Detected (Not Detect.) Stool Norovirus (PCR) DETECTED Stl Norovirus GI/GII PCR See Comment (Not Detect.) C. difficile Tox B Gene NEGATIVE (Negative) Influenza Type A (PCR) NEGATIVE (Negative) Influenza Type B (PCR) NEGATIVE (Negative) RSV RNA Qual (PCR) NEGATIVE (Negative) SARS-CoV-2 RNA (RT-PCR) NEGATIVE (Negative) Radiology Impression Discussion of test interpretation with radiology: I have reviewed the radiologist's reading. Radiologist Impression: CT/CT abdomen pelvis w IV con IMPRESSION: 1. No explanation for abdominal pain and diarrhea. 2. Nonobstructing nephrolithiasis on the left. 3. Borderline size of appendix without secondary signs of appendicitis. Fleischner guidelines were followed. Dictated By: Yeyo Hill MD External Record Review External record reviewed: Inpatient record, Office record, Outpatient record, Prior outpatient labs, Prior outpatient radiology, Primary care record and Outside ED record Discharge Plan Discharge Clinical Impression: Diarrhea Patient Disposition: Home, Self-Care Instructions: Acute Diarrhea (ED) Additional Instructions: You were seen in the emergency department due to abdominal pain and diarrhea. Your blood work was reassuring. Your ultrasound shows evidence of a kidney stone and fatty liver however this would not cause you to have this pain or symptoms. You likely have a virus that is causing you to have the symptoms. It is very important for you to stay well hydrated, drink plenty of fluids, and consume a diet consisting of bananas, rice, applesauce, toast for the next several days until you are able to have solid bowel movements. You may continue taking Zofran as needed for nausea. You may also take Pepto-Bismol to help with diarrhea. If any new or worsening symptoms occur including but not limited to fevers, chills, chest pain, shortness of breath, please return for re-evaluation. Prescriptions: New ondansetron HCl 4 mg tablet 4 mg PO Q6H PRN (Reason: nausea and vomiting) Qty: 10 0RF Interventions: ED Discharge Assessment Last Done: 04/09/24 14:28 Discharge Date/Time: 04/09/24 14:35 Print Language: Guyanese
[2024-04-09 07:55] LABS: Appearance Urine Clear; Color Urine Yellow; Glucose Urine UA Negative (Negative); Leukocyte Esterase Urine Negative (Negative); Nitrite Urine Negative (Negative); PH 5.5 (5.0-9.0); Specific Gravity - Urine 1.025 (1.005-1.025); UMIC TRIGGER UACC YES; Urine Blood Moderate (2+) (Negative); Urine Ketones Negative (Negative); Urine Protein Negative (Neg-Trace)
[2024-04-09 08:00] LABS: Bacteria Urine None Seen (None Seen); Hyaline Casts Urine 0-2 /LPF (0-2); WBC Urine 0-5 /HPF (0-5)
--- NOTE | 2024-04-09 08:05 | PC.NURSE ---
Pt reports nausea, vomiting, abd pain, body aches and headache starting yesterday. Recent ABX use for 2 weeks for H.pylori. Denies CP, SOB, cough. Alert and oriented, breathing even and unlabored, skin clammy. Pt appears uncomfortable.
[2024-04-09 08:18] LABS: Alanine Aminotransferase 28 U/L (0-31); Albumin Level 4.2 g/dL (3.5-5.0); Alkaline Phosphatase 64 U/L (39-117); Anion Gap 13 (12-20); Aspartate Amino Transferase 21 U/L (5-31); Bilirubin Total 0.6 mg/dL (0.0-1.0); Blood Urea Nitrogen 14 mg/dL (9-16); Calcium 9.2 mg/dL (8.4-10.2); Carbon Dioxide 21 mmol/L (22-29); Chloride 107 mmol/L (96-108); Creatinine Clr Calc Pharmacy 89.8; Estimated Glomerular Filt Rate > 60; Glucose Random 137 mg/dL (60-115); Lipase 20 U/L (8-78); Potassium 4.1 mmol/L (3.3-5.1); Sodium 137 mmol/L (135-145); Total Protein 7.4 g/dL (6.5-8.0)
[2024-04-09] MEDS: 0.9 % Sodium Chloride 1,000 ML 999 ML IV ×2 (08:19→09:56)
[2024-04-09] MEDS: ondansetron HCL 4 MG/2 ML VIAL IVPUSH (08:20)
[2024-04-09 09:05] LABS: Troponin-I High Sensitivity < 2.7 ng/L (<3.5-17.0)
[2024-04-09 09:41] VITALS: PULSE 66; RESP 18; TEMP 36.2; O2SAT 98
[2024-04-09] MEDS: Acetaminophen 325 MG TABLET 975 MG PO (09:54)
[2024-04-09] MEDS: Lidocaine HCl Viscous 2 % 15 ML SOLUTION MUCOUS MEM (09:55)
[2024-04-09] MEDS: Magnesium Hydrox/Alum Hydrox 30 ML ORAL.SUSP PO (09:55)
[2024-04-09] MEDS: PHENobarb/Hyoscy/Atropine/Scop 10 ML ELIXIR PO (09:55)
[2024-04-09 10:06] LABS: CDiff Gene PCR NEGATIVE (Negative)
[2024-04-09 10:39] LABS: Influenza A PCR NEGATIVE (Negative); Influenza B PCR NEGATIVE (Negative); Resp Syncy Virus RNA Qual PCR NEGATIVE (Negative); SARS COV2 PCR INHOUSE NEGATIVE (Negative)
[2024-04-09] MEDS: iohexoL 350 MG/ML 100 ML INFUS..BTL IV (11:20)
[2024-04-09 11:34] LABS: Adenovirus F 40/41 Not Detected (Not Detect.); Astrovirus Not Detected (Not Detect.); Campylobacter Not Detected (Not Detect.); Cryptosporidium Not Detected (Not Detect.); Cyclospora cayetanensis Not Detected (Not Detect.); E. coli EAEC Not Detected (Not Detect.); E. coli EPEC Not Detected (Not Detect.); E. coli ETEC Not Detected (Not Detect.); E. coli STEC Not Detected (Not Detect.); Entamoeba histolytica Not Detected (Not Detect.); Giardia lamblia Not Detected (Not Detect.); Plesiomonas shigelloides Not Detected (Not Detect.); Rotavirus A Not Detected (Not Detect.); Salmonella Not Detected (Not Detect.); Sapovirus Not Detected (Not Detect.); Shigella sp./EIEC Not Detected (Not Detect.); Vibrio Not Detected (Not Detect.); Vibrio Cholerae Not Detected (Not Detect.); Yersinia enterocolitica Not Detected (Not Detect.)
[2024-04-09 12:00] VITALS: BP 132/76; PULSE 70; RESP 16; TEMP 37.2; O2SAT 99
[2024-04-09 14:28] VITALS: BP 114/69; PULSE 70; RESP 16; TEMP 36.4; O2SAT 97
--- NOTE | 2024-04-11 09:40 | ECG_ITS ---
Test Reason : ABDOMINAL PAIN Blood Pressure : / mmHG Vent. Rate : 079 BPM Atrial Rate : 079 BPM P-R Int : 130 ms QRS Dur : 076 ms QT Int : 394 ms P-R-T Axes : 054 051 058 degrees QTc Int : 451 ms Normal sinus rhythm Possible Left atrial enlargement Nonspecific T wave abnormality Abnormal ECG No previous ECGs available Referred By: Ezio Melgar Electronically Signed By:TEETEE BROWN
[2024-04-12 09:21] LABS: Norovirus Stool PCR DETECTED
== END 2024-04-09 14:35 | disposition home or self-care (01) ==
PROVIDERS: Physician Assistant Medical; Emergency Provider Emergency Medicine; PCP Internal Medicine
DX: R19.7 Diarrhea, unspecified (principal); R11.2 Nausea with vomiting, unspecified; R51.9 Headache, unspecified; R10.13 Epigastric pain; E11.9 Type 2 diabetes mellitus without complications; I10 Essential (primary) hypertension; E78.5 Hyperlipidemia, unspecified; Z03.818 Encounter for observation for suspected exposure to other biological agents ruled out
CPT/HCPCS: 0241U; 36415; 74177; 76705; 80053; 81001; 83690; 84484; 85025; 87493; 87507; 93005; 96360; 99284; 99285; J2405; Q9967

== ENCOUNTER → 2024-04-11 09:40 | Outpatient (BNV) | payer MEDICAID, SELFPAY | PROVIDERS: Emergency Provider Emergency Medicine; PCP Internal Medicine; Visit Provider Internal Medicine | DX: R94.31 Abnormal electrocardiogram [ECG] [EKG] (principal) | CPT/HCPCS: 93010 ==

== ENCOUNTER 2024-04-15 12:42 | Outpatient (REF) | payer MEDICAID, SELFPAY ==
--- NOTE | ~2024-04-15 | MR_ITS ---
EXAMINATION: MR KNEE WITHOUT CONTRAST, LEFT CLINICAL INFORMATION: Left knee pain COMPARISON: Radiographs 03/10/2024 TECHNIQUE: MRI of the knee without contrast was performed using routine sequences on a high-field scanner. FINDINGS: MENISCI: Medial Meniscus: Intact Lateral Meniscus: Intact LIGAMENTS: Cruciate: Intact Collateral: Intact EXTENSOR MECHANISM: Intact ARTICULAR CARTILAGE/BONE: Patellofemoral Compartment: Normal Medial Compartment: Mild cartilage signal heterogeneity and surface irregularity along the lateral aspect of the weightbearing femoral condyle. Lateral Compartment: Minimal cartilage irregularity of the tibia posteriorly. JOINT FLUID AND BURSAE: Trace joint effusion. MR/MR knee LT wo con IMPRESSION: 1. No meniscal tear. 2. Mild medial and lateral compartment osteoarthritis with a trace joint effusion.
== END 2024-04-15 12:43 | disposition home or self-care (01) ==
LOC: HO.MRI 12:42
PROVIDERS: PCP Internal Medicine; Visit Provider Orthopaedic Surgery
DX: M23.92 Unspecified internal derangement of left knee (principal)
CPT/HCPCS: 73721

== ENCOUNTER 2024-05-02 20:22 | Emergency (ER) | payer OTHER, MEDICAID, SELFPAY ==
[2024-05-02 20:39] VITALS: BP 148/85; PULSE 65; RESP 16; TEMP 36.6; O2SAT 99; BMI 33.3
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
[2024-05-03 01:29] VITALS: BP 140/76; PULSE 65; RESP 16; TEMP 36.6; O2SAT 99
[2024-05-03] MEDS: Cyclobenzaprine HCl 10 MG TABLET PO (01:40)
[2024-05-03] MEDS: traMADoL HCL 50 MG TABLET PO (01:41)
[2024-05-03 01:43] VITALS: BP 140/76; PULSE 65; RESP 16; TEMP 36.6; O2SAT 99
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
== END 2024-05-03 01:44 | disposition home or self-care (01) ==
PROVIDERS: Emergency Provider Internal Medicine; PCP Internal Medicine
DX: M54.2 Cervicalgia (principal); M25.512 Pain in left shoulder; M25.511 Pain in right shoulder; S19.9XXA Unspecified injury of neck, initial encounter; V89.2XXA Person injured in unspecified motor-vehicle accident, traffic, initial encounter; Y93.9 Activity, unspecified; Y92.9 Unspecified place or not applicable; Y99.9 Unspecified external cause status
CPT/HCPCS: 99283

== ENCOUNTER 2024-05-23 11:57 | Outpatient (AMB) | payer MEDICAID, SELFPAY ==
[2024-05-23 12:00] VITALS: BMI 33.3
--- NOTE | 2024-05-23 12:00 | MHC.OFFVIS ---
Vital Signs 05/23/24 12:00 Height 5 ft 5 in Weight 200 lb BMI 33.3 Intake Visit Reasons: OV - Left Knee MRI Follow Up Intake Note: Julia is a 49 year old female who presents today for a left knee MRI follow up. MR/MR knee LT wo con IMPRESSION: 1. No meniscal tear. 2. Mild medial and lateral compartment osteoarthritis with a trace joint effusion. Allergies penicillin G [PENICILLIN G] Allergy (Severe, Verified 05/23/24 12:01) ANAPHYLAXIS shrimp Allergy (Severe, Verified 05/23/24 12:01) Anaphylaxis Penicillins [PCN] Allergy (Verified 05/23/24 12:01) Unknown HPI HPI OV - Left Knee MRI Follow Up: Details: Julia is a 49 year old female who presents today for a left knee MRI follow up. She is feeling better today with only occasional pain. COUNTS INCLUDE 234 BEDS AT THE [facility] Medical History Pes cavus of both feet Allergies Headache GERD (gastroesophageal reflux disease) Surgical History History of shoulder surgery History of tubal ligation Hx of tonsillectomy Family History Mother Arthritis Father Diabetes Social History Household Members: Significant Other Are you a primary care taker to a significant other at home: No Do you presently have visiting nurse or other home services: No Alcohol intake: former Patient Tobacco Use Status: Former Tobacco user Current occupational status: employed and unemployed Physical Exam Vital Signs: BMI result Body Mass Index 33.3 Const General: cooperative, healthy appearing, no acute distress, well developed and alert HEENT Head: Yes normal to inspection, Yes normocephalic and Yes atraumatic Mouth: moist mucous membranes Eyes General: appearance normal, both eyes and all related structures EOM: EOMs intact bilaterally Chest Other: no audible wheezing. Resp Other: No audible wheezing Effort & Inspection: normal respiratory effort Back/Spine/Pelvis Cervical Spine: normal cervical lordosis Skin General skin exam: no rashes or lesions noted Neuro General: no focal motor deficits Extrem Other: Full range of motion by lateral knees. On the left she has no pain with hyperflexion of the left knee and a negative medial Cheyenne's. Psych Appearance: grossly normal and well kempt Mental Status: mental status grossly normal Speech and movement: Normal speech and movement present Affect: normal affect Attitude: cooperative Results Reviewed Results Reviewed: I personally reviewed the MR images. MR/MR knee LT wo con IMPRESSION: 1. No meniscal tear. 2. Mild medial and lateral compartment osteoarthritis with a trace joint effusion. Assessment & Plan Assessment & Plan (1) Left knee pain: Code(s): M25.562 - Pain in left knee Category: Medical Plan: MRI unremarkable and pain improved. Likely mild OA and fibromyalgia. No intervention warratned at this time. Coding Level of Care Code Est Pt Level 4 (87593) Diagnoses Left knee pain M25.562
== END 2024-05-23 12:46 | disposition home or self-care (01) ==
PROVIDERS: PCP Internal Medicine; Referring Provider Internal Medicine; Visit Provider Orthopaedic Surgery
DX: M25.562 Pain in left knee (principal)
CPT/HCPCS: 99213

== ENCOUNTER → 2024-05-23 11:57 | Outpatient (BNVA) | payer MEDICAID, SELFPAY | PROVIDERS: PCP Internal Medicine; Visit Provider Orthopaedic Surgery | DX: M25.562 Pain in left knee (principal) | CPT/HCPCS: 99212 ==

== ENCOUNTER 2024-06-09 | Outpatient (REF) | payer MEDICAID, SELFPAY | END 2024-06-09 00:01 | disposition home or self-care (01) | LOC: CF | PROVIDERS: Visit Provider Surgery | DX: L72.0 Epidermal cyst (principal) | CPT/HCPCS: 99202 ==

== ENCOUNTER 2024-06-09 11:22 | Outpatient (AMB) | payer MEDICAID, SELFPAY ==
--- NOTE | 2024-06-09 11:22 | A.OFFVIS_ITS ---
Vital Signs 06/09/24 11:23 Height 5 ft 5 in Weight 200 lb BMI 33.3 Intake Visit Reasons: Sebaceous cyst Intake Note: This patient presents for sebaceous cyst assessment. Patient c/o; reports sebaceous cyst of back, reports increase in size. Retail Associate Manager Bilingual Required: Yes Retail Associate Manager Bilingual Language: Track Rider Services: Retail Associate Manager Bilingual Present Retail Associate Manager Bilingual Name: Anna Information Interpreted: non-clinical & clinical Accompanied by: Self / Same As Patient Allergies penicillin G [PENICILLIN G] Allergy (Severe, Verified 06/09/24 11:31) ANAPHYLAXIS shrimp Allergy (Severe, Verified 06/09/24 11:31) Anaphylaxis Penicillins [PCN] Allergy (Verified 06/09/24 11:31) Unknown Medication List - Last Reconciled 06/09/24 by Tony Lee MD acetaminophen ER 650 mg PO Q8H PRN buspirone 30 mg PO BID okgiwbqxxs-yfpbqxwvbzxxo-hdjk 50-325-40 mg 1 - 2 tabs PO Q6-8H PRN cetirizine 1 tab PO DAILY citalopram 20 mg PO DAILY clindamycin phosphate 1% 1 appl topical DAILY clonazepam 1.5 mg PO BEDTIME cyclobenzaprine 10 mg PO Q8H dicyclomine 20 mg orally before breakfast, lunch, and dinner; diphenhydramine HCl (Banophen) 50 mg PO Q4-6H PRN ferrous gluconate 324 mg PO QAM fluticasone propionate 50 mcg/actuation 2 sprays intranasal DAILY gabapentin 200 mg (2 x 100 mg) PO TID hydrocortisone 2.5% 1 appl topical BID ketoconazole 2% 1 appl topical 2XW lidocaine 5% 1 patch transdermal Q3D PRN lisinopril 10 mg PO DAILY omeprazole 20 mg PO QAM ondansetron HCl 4 mg PO Q6H PRN sodium chloride 0.65% (Saline Nasal) 1 - 2 sprays intranasal Q2-3H PRN tacrolimus 0.1% 1 appl topical DIRECTED topiramate 1 tab PO DAILY tramadol 50 mg PO Q6H PRN venlafaxine ER 150 mg PO QAM HPI HPI Sebaceous cyst: Details: 49-year-old female referred for an epidermal cyst. She has noticed this lump on her upper back for about 3-4 months. She says that this seems to have been increasing in size slowly. She denies any drainage. She does state that this seems to swell up once in a while. [facility] Medical History (Updated 06/09/24 @ 11:35 by Tony Lee MD) Epidermal cyst Pes cavus of both feet Allergies Headache GERD (gastroesophageal reflux disease) Surgical History History of shoulder surgery History of tubal ligation Hx of tonsillectomy Family History Mother Arthritis Father Diabetes Social History Household Members: Significant Other Are you a primary senior caregiver to a significant other at home: No Do you presently have visiting nurse or other home services: No Alcohol intake: former Patient Tobacco Use Status: Former Tobacco user Current occupational status: employed and unemployed Review of Systems Const Denies chills and Denies fever(s) Card Denies chest pain, Denies dyspnea and Denies dyspnea on exertion Resp Denies cough, Denies dyspnea and Denies dyspnea on exertion GI Denies hematochezia and Denies change in bowel habits Denies hematuria Musc Denies back pain and Denies limited range of motion Neuro Denies focal weakness and Denies convulsions Psych Denies depression and Denies mood swings Physical Exam Const General: comfortable and no acute distress Orientation/consciousness: patient oriented x3 Neck Neck: Yes no lymphadenopathy Resp Auscultation: clear to auscultation bilaterally Cardio Rhythm: regular rhythm GI Palpation (GI): Soft to palpation, nontender and no guarding Back/Spine/Pelvis Other: Upper back with note of a cystic induration, about 2.1 cm in widest dimension, nonfluctuant, not currently inflamed, no cellulitis Neuro General: patient oriented x3 Assessment & Plan Assessment & Plan (1) Epidermal cyst: Code(s): L72.0 - Epidermal cyst Category: Medical Plan I explained to her the technique of excision under local anesthesia. I reviewed the risks including but not limited to bleeding, infections, poor healing, as well as the benefits and alternatives. I also reviewed with her what to expect postoperatively She has given consent. This will be scheduled as an office procedure on her next visit. Coding Level of Care Code New Pt Level 3 (87882) Diagnoses Epidermal cyst L72.0
[2024-06-09 11:23] VITALS: BMI 33.3
== END 2024-06-09 11:37 | disposition home or self-care (01) ==
PROVIDERS: PCP Internal Medicine; Visit Provider Surgery
DX: L72.0 Epidermal cyst (principal)
CPT/HCPCS: 99204

== ENCOUNTER 2024-06-09 11:45 | Outpatient (REF) | payer MEDICAID, SELFPAY ==
--- NOTE | ~2024-06-09 | MM_ITS ---
EXAMINATION: MM SCREENING DIGITAL BREAST TOMOSYNTHESIS, BILATERAL CLINICAL INFORMATION: Screening. Asymptomatic. COMPARISON: Mammography: This study is compared with prior exams dating back to 2019. TECHNIQUE: Digital breast tomosynthesis is performed in both the craniocaudal and mediolateral oblique views along with computer-aided detection (CAD). Synthesized 2D images are generated from the tomosynthesis. FINDINGS: There are scattered areas of fibroglandular density (ACR BI-RADS breast composition Category b). There are no significant masses, abnormal calcifications, or other abnormalities. MM/MM tomosynthesis screening BI IMPRESSION: No mammographic evidence of malignancy. ASSESSMENT: BI-RADS BI-RADS 1 - Negative RECOMMENDATION: Routine annual mammography screening. 1 year F/U This examination should not preclude the clinical evaluation of a suspicious palpable abnormality. This patient's information was entered into a reminder system with a target due date for their next mammogram. Electronically signed by: Flower Nielsen MD 07/07/2024 11:42 AM EDT
== END 2024-06-09 11:46 | disposition home or self-care (01) ==
LOC: HO.MAMMO 11:45
PROVIDERS: PCP Internal Medicine; Visit Provider Internal Medicine
DX: Z12.31 Encounter for screening mammogram for malignant neoplasm of breast (principal)
CPT/HCPCS: 77063; 77067

== ENCOUNTER → 2024-06-09 12:15 | Outpatient (BNV) | payer MEDICAID, SELFPAY | PROVIDERS: PCP Internal Medicine; Visit Provider Radiology Diagnostic Radiology | DX: Z12.31 Encounter for screening mammogram for malignant neoplasm of breast (principal) | CPT/HCPCS: 77063; 77067 ==

== ENCOUNTER 2024-06-14 13:35 | Outpatient (AMB) | payer MEDICAID, SELFPAY ==
--- NOTE | 2024-06-14 13:37 | A.OFFVIS_ITS ---
Vital Signs 06/14/24 13:44 Height 5 ft 5 in Weight 196 lb 3.382 oz BMI 32.6 BP 112/70 Blood Pressure Location Lt brachial Position Sitting Pulse 70 Pulse Source Pulse Oximeter Pulse Oximetry (%) 97 Oxygen Delivery Method Room Air Intake Visit Reasons: FMS/OA/CM Intake Note: Patient presents for FMS/OA. Manager Support Services Required: Yes Manager Support Services Language: [employer] Services: Manager Support Services Present Manager Support Services Name: Jairo [id number] Information Interpreted: non-clinical & clinical Allergies penicillin G [PENICILLIN G] Allergy (Severe, Verified 06/14/24 13:40) ANAPHYLAXIS shrimp Allergy (Severe, Verified 06/14/24 13:40) Anaphylaxis Penicillins [PCN] Allergy (Verified 06/14/24 13:40) Unknown Medication List - Last Reconciled 06/14/24 by Cristino Mathias MD acetaminophen ER 650 mg PO Q8H PRN buspirone 30 mg PO BID utedhhcnwd-omgjxmocnkdmq-kcnb 50-325-40 mg 1 - 2 tabs PO Q6-8H PRN cetirizine 1 tab PO DAILY citalopram 20 mg PO DAILY clindamycin phosphate 1% 1 appl topical DAILY clonazepam 1.5 mg PO BEDTIME cyclobenzaprine 5 mg PO TID dicyclomine 20 mg orally before breakfast, lunch, and dinner; diphenhydramine HCl (Banophen) 50 mg PO Q4-6H PRN ferrous gluconate 324 mg PO QAM fluticasone propionate 50 mcg/actuation 2 sprays intranasal DAILY gabapentin 200 mg (2 x 100 mg) PO TID hydrocortisone 2.5% 1 appl topical BID ketoconazole 2% 1 appl topical 2XW lidocaine 5% 1 patch transdermal Q3D PRN lisinopril 10 mg PO DAILY omeprazole 20 mg PO QAM ondansetron HCl 4 mg PO Q6H PRN sodium chloride 0.65% (Saline Nasal) 1 - 2 sprays intranasal Q2-3H PRN tacrolimus 0.1% 1 appl topical DIRECTED topiramate 1 tab PO DAILY tramadol 50 mg PO Q6H PRN venlafaxine ER 150 mg PO QAM HPI Comments Details: 49-year-old female with fibromyalgia and osteoarthritis returns for follow-up. States that she has been walking more. She states that her back pain has become much more severe recently. She takes gabapentin daily and tramadol when absolutely needed. She stated that she was referred to PT early this year by Pain Management but there was not much focus on her lower back. [facility] Medical History Epidermal cyst Pes cavus of both feet Allergies Headache GERD (gastroesophageal reflux disease) Surgical History History of shoulder surgery History of tubal ligation Hx of tonsillectomy Family History Mother Arthritis Father Diabetes Social History Household Members: Significant Other Are you a primary healthcare administrator to a significant other at home: No Do you presently have visiting nurse or other home services: No Alcohol intake: former Patient Tobacco Use Status: Former Tobacco user Current occupational status: employed and unemployed Female Reproductive History Menstrual Total pregnancies: 4 Ab spontaneous: 1 Review of Systems Musc Reports back pain, Reports arthralgias, Denies joint swelling and Reports stiffness Physical Exam Vital Signs: Last Vital Signs Pulse 70 06/14/24 13:44 BP 112/70 06/14/24 13:44 Pulse Ox 97 06/14/24 13:44 Oxygen Delivery Method Room Air 06/14/24 13:44 BMI result Body Mass Index 32.6 Const General: cooperative, healthy appearing and comfortable Nutritional Appearance: obese Orientation/consciousness: patient oriented x3 Limitations: no limitations HEENT Head: Yes normocephalic and Yes atraumatic Mouth: moist mucous membranes Resp Effort & Inspection: normal respiratory effort and able to speak in complete sentences Auscultation: clear to auscultation bilaterally Cardio Rate: regular rate Rhythm: regular rhythm Skin General skin exam: no rashes or lesions noted Neuro General: patient oriented x3 Extrem Other: Minimal osteoarthritic changes of both hands with no active synovitis Normal nailfold capillaroscopy No significant fibromyalgia tender points today Bilateral lower paraspinal muscle tenderness Positive straight leg raise test on the right No ankle swelling or tenderness bilaterally today No MTP tenderness bilaterally today Assessment & Plan Assessment & Plan (1) Lumbar facet arthropathy: Code(s): M47.816 - Spondylosis without myelopathy or radiculopathy, lumbar region Category: Medical Plan: Was evaluated by Pain Management 10/2023 and referred to physical therapy. She stated that PT was more focus on her neck, upper back and shoulders. There was not much focus on her lower back. Patient would like be referred again to PT. PT order placed. Advised patient that if there is no improvement, to go back to pain management She can continue with gabapentin (2) ARIANA positive: Code(s): R76.8 - Other specified abnormal immunological findings in serum Category: Medical Plan: With negative sub serologies. Significance is unclear at this stage (3) Osteoarthritis of foot, left: Comment: left talo-naviular OA seen on MRI 08/2023 Code(s): M19.072 - Primary osteoarthritis, left ankle and foot Category: Medical Qualifiers: Osteoarthritis type: primary Qualified Code(s): M19.072 - Primary osteoarthritis, left ankle and foot Plan: Gets steroid injections periodically by jogger operator Plan I spent 24 minutes reviewing patient's chart, evaluating patient, placing orders, counseling patient and documenting in the chart Orders: Orders PT Evaluation and Treatment Today M47.816 - Spondylosis without myelopathy or radiculopathy, lumbar region Coding Level of Care Code Est Pt Level 4 (68570) Diagnoses Lumbar facet arthropathy M47.816 ARIANA positive R76.8 Primary osteoarthritis of left foot M19.072 Osteoarthritis type: primary
[2024-06-14 13:44] VITALS: BP 112/70; PULSE 70; O2SAT 97; BMI 32.6
== END 2024-06-14 14:01 | disposition home or self-care (01) ==
PROVIDERS: PCP Internal Medicine; Referring Provider Internal Medicine; Visit Provider Student in an Organized Health Care Education/Training Program
DX: M47.816 Spondylosis without myelopathy or radiculopathy, lumbar region (principal); R76.8 Other specified abnormal immunological findings in serum; M19.072 Primary osteoarthritis, left ankle and foot
CPT/HCPCS: 99214

== ENCOUNTER → 2024-06-14 13:35 | Outpatient (BNVA) | payer MEDICAID, SELFPAY | PROVIDERS: PCP Internal Medicine; Visit Provider Student in an Organized Health Care Education/Training Program | DX: M47.816 Spondylosis without myelopathy or radiculopathy, lumbar region (principal); R76.8 Other specified abnormal immunological findings in serum; M19.072 Primary osteoarthritis, left ankle and foot | CPT/HCPCS: 99212 ==

== ENCOUNTER 2024-06-27 13:16 | Outpatient (REF) | payer MEDICAID, SELFPAY | END 2024-06-27 13:17 | disposition home or self-care (01) | LOC: HO.LNP 13:16 | PROVIDERS: PCP Internal Medicine; Visit Provider Surgery | DX: L72.0 Epidermal cyst (principal) | CPT/HCPCS: 11403; 88304 ==

== ENCOUNTER 2024-06-27 13:16 | Outpatient (AMB) | payer MEDICAID, SELFPAY ==
--- NOTE | 2024-06-27 13:31 | A.OFFVIS_ITS ---
Vital Signs 06/27/24 13:32 Height 5 ft 5 in Weight 196 lb 3.382 oz BMI 32.6 Pulse 68 Intake Visit Reasons: excision sebaceous cyst Intake Note: Patient is seen in office for office procedure, excision of sebaceous cyst. Pt c/o: Photographic Intelligence Officer Required: No Accompanied by: Self / Same As Patient Allergies penicillin G [PENICILLIN G] Allergy (Severe, Verified 06/27/24 13:32) ANAPHYLAXIS shrimp Allergy (Severe, Verified 06/27/24 13:32) Anaphylaxis Penicillins [PCN] Allergy (Verified 06/27/24 13:32) Unknown HPI HPI excision sebaceous cyst: Details: She is here for excision of an epidermal cyst from the back [facility] Medical History Epidermal cyst Pes cavus of both feet Allergies Headache GERD (gastroesophageal reflux disease) Surgical History History of removal of cyst History of shoulder surgery History of tubal ligation Hx of tonsillectomy Family History Mother Arthritis Father Diabetes Social History Household Members: Significant Other Are you a primary career technical education teacher to a significant other at home: No Do you presently have visiting nurse or other home services: No Alcohol intake: former Patient Tobacco Use Status: Former Tobacco user Current occupational status: employed and unemployed Physical Exam Vital Signs: Last Vital Signs Pulse 68 06/27/24 13:32 BMI result Body Mass Index 32.6 Office Procedures Excision Details: She was in prone position. The area of the cyst on the upper back was prepped and draped. Lidocaine 1% was used for local anesthesia. I made an elliptical incision on the skin surrounding this area of cystic induration using blade 15. This incision was carried down through the full-thickness of the skin as well as to the subcutaneous fat. I excised the entire indurated area. The excised area was about 3 cm by 2 cm. I closed the incision with full-thickness nylon 3- 0 interrupted sutures. Dressings were applied. The procedure was completed. She tolerated procedure well. There were no immediate complications. She was given wound care instructions. [id number]/arms/legs 2.1-3cm Procedure code (CPT) selection complete Assessment & Plan Assessment & Plan (1) Epidermal cyst: Code(s): L72.0 - Epidermal cyst Category: Medical Plan: Excision was done in the office. She was given wound care instructions. She will be seen in the office in about 2 weeks for removal of sutures. Coding Level of Care Code Procedure Only Diagnoses Epidermal cyst L72.0 CPT Codes Trunk/Arms/Legs - CPT: 18557-dijda/arms/legs 2.1-3cm ([id number])
[2024-06-27 13:32] VITALS: PULSE 68; BMI 32.6
== END 2024-06-27 14:08 | disposition home or self-care (01) ==
PROVIDERS: PCP Internal Medicine; Visit Provider Surgery
DX: L72.0 Epidermal cyst (principal)
CPT/HCPCS: 11403

== ENCOUNTER 2024-07-11 13:30 | Outpatient (AMB) | payer MEDICAID, SELFPAY ==
--- NOTE | 2024-07-11 13:39 | A.OFFVIS_ITS ---
Intake Visit Reasons: s/p excision of cyst Intake Note: Patient is seen in office for post op assessment post excision of back cyst. Pt c/o: denies any concerns, sutures removed at visit Signal Repairer Required: No Accompanied by: Self / Same As Patient Allergies penicillin G [PENICILLIN G] Allergy (Severe, Verified 07/11/24 13:49) ANAPHYLAXIS shrimp Allergy (Severe, Verified 07/11/24 13:49) Anaphylaxis Penicillins [PCN] Allergy (Verified 07/11/24 13:49) Unknown HPI HPI s/p excision of cyst: Details: She underwent excision of a cyst from the back under local anesthesia last 06/18/2024. She tolerated the procedure well. Denies complaints currently. [facility] Medical History Epidermal cyst Pes cavus of both feet Allergies Headache GERD (gastroesophageal reflux disease) Surgical History History of removal of cyst (~06/27/24) History of shoulder surgery History of tubal ligation Hx of tonsillectomy Family History Mother Arthritis Father Diabetes Social History Household Members: Significant Other Are you a primary career guidance counselor to a significant other at home: No Do you presently have visiting nurse or other home services: No Alcohol intake: former Patient Tobacco Use Status: Former Tobacco user Current occupational status: employed and unemployed Review of Systems Const Denies chills and Denies fever(s) Card Denies chest pain, Denies dyspnea and Denies dyspnea on exertion Resp Denies cough, Denies dyspnea and Denies dyspnea on exertion GI Denies hematochezia and Denies change in bowel habits Denies hematuria Musc Reports back pain, Reports arthralgias and Denies limited range of motion Neuro Denies focal weakness and Denies convulsions Psych Denies depression and Denies mood swings Physical Exam Const General: comfortable and no acute distress Back/Spine/Pelvis Other: Excision site well healed, not infected Assessment & Plan Assessment & Plan (1) Epidermal cyst: Code(s): L72.0 - Epidermal cyst Category: Medical Plan: Status post excision. Her path report shows an epidermal inclusion cyst. Her incisions were well healed. Her sutures were removed. She can therefore follow up on a p.r.n. basis. Coding Level of Care Code Global (49445) Diagnoses Epidermal cyst L72.0
== END 2024-07-11 14:13 | disposition home or self-care (01) ==
PROVIDERS: PCP Internal Medicine; Visit Provider Surgery
DX: L72.0 Epidermal cyst (principal)
CPT/HCPCS: 99024

== ENCOUNTER → 2024-07-11 13:30 | Outpatient (BNVA) | payer MEDICAID, SELFPAY | PROVIDERS: PCP Internal Medicine; Visit Provider Surgery | DX: Z48.02 Encounter for removal of sutures (principal); Z87.2 Personal history of diseases of the skin and subcutaneous tissue; Z98.890 Other specified postprocedural states | CPT/HCPCS: 99212 ==

== ENCOUNTER 2024-08-18 11:29 | Outpatient (REF) | payer MEDICAID, SELFPAY ==
[2024-08-18 14:10] LABS: Cholesterol 208 mg/dL (<200); HDL Cholesterol 72 mg/dL (>40); LDL Cholesterol Calculated 115 mg/dL (<100); Triglycerides 107 mg/dL (<150)
== END 2024-08-18 11:30 | disposition home or self-care (01) ==
LOC: HO.CHCLDS 11:29
PROVIDERS: Visit Provider Internal Medicine
DX: E66.811 Obesity, class 1 (principal)
CPT/HCPCS: 36415; 80061

== ENCOUNTER 2024-09-12 15:41 | Emergency (ER) | payer MEDICAID, SELFPAY ==
--- NOTE | ~2024-09-12 | XR_ITS ---
EXAMINATION: XR chest 2V CLINICAL INFORMATION: SOB COMPARISON: 12/26/2022 TECHNIQUE: 2 views of the chest FINDINGS: Clear lungs. No pneumothorax. No pleural effusion. Normal cardiomediastinal silhouette. XR/XR chest 2V IMPRESSION: No acute cardiopulmonary findings. Electronically signed by: Ilene Echavarria MD 09/12/2024 06:06 PM [facility]
--- NOTE | 2024-09-12 15:43 | ECG_ITS ---
Test Reason : cp Blood Pressure : / mmHG Vent. Rate : 073 BPM Atrial Rate : 073 BPM P-R Int : 126 ms QRS Dur : 078 ms QT Int : 392 ms P-R-T Axes : 057 043 064 degrees QTc Int : 431 ms Normal sinus rhythm Possible Left atrial enlargement Borderline ECG When compared with ECG of 17-MAR-2023 13:30, No significant change was found Referred By: Danette Bond Electronically Signed By:Ezra Andersen
[2024-09-12 15:54] VITALS: BP 97/54; PULSE 62; RESP 18; TEMP 36.6; O2SAT 100; BMI 32.2
--- NOTE | 2024-09-12 16:19 | ED_ITS ---
HPI - Chest Pain General Chief Complaint: Chest Pain Stated Complaint: Chest Pain Referred by PCP Source: patient Mode of arrival: ambulatory Limitations: no limitations History of Present Illness ED Provider: Danette Bond PA-C HPI narrative: Patient is a 49 year old assigned female at with a history of fibromyalgia, GERD, and osteoarthritis presenting to the emergency department today with chest pain and shortness of breath. Patient states that she woke up this morning with chest pain and shortness of breath. Patient denies any dizziness, lightheadedness, abdominal pain, nausea, vomiting, fever, chills, blurry vision, double vision, loss of vision, back pain, night sweats, pain with urination, increased urinary frequency, increased urinary urgency, blood in her urine or stool, syncope or a near syncopal episode, recent trauma or falls, bowel incontinence, bladder incontinence, or any other complaints at this time. Related Data Home Medications ?Medication ?Instructions ?Recorded ?Confirmed cetirizine 10 mg tablet 1 tab PO DAILY 01/09/21 06/09/24 topiramate 50 mg tablet 1 tab PO DAILY headache 01/09/21 06/09/24 acetaminophen 650 mg 650 mg PO Q8H PRN mild pain 04/30/23 06/09/24 tablet,extended release buspirone 30 mg tablet 30 mg PO BID 04/30/23 06/09/24 hnubgiskxa-vdevthessdxkj-bcevtwld 1 - 2 tab PO Q6-8H PRN Migraine 04/30/23 06/09/24 50 mg-325 mg-40 mg tablet Headache citalopram 10 mg tablet 20 mg PO DAILY 04/30/23 06/09/24 clonazepam 1 mg tablet 1.5 mg PO BEDTIME 04/30/23 06/09/24 diphenhydramine HCl 25 mg capsule 50 mg PO Q4-6H PRN Anxiety 04/30/23 06/09/24 (Banophen) ferrous gluconate 324 mg (38 mg 324 mg PO QAM 04/30/23 06/09/24 iron) tablet fluticasone propionate 50 2 spray intranasal DAILY 04/30/23 06/09/24 mcg/actuation nasal spray,suspension ketoconazole 2 % shampoo 1 appl topical 2XW 04/30/23 06/09/24 lidocaine 5 % topical patch 1 patch transdermal Q3D PRN pain 04/30/23 06/09/24 lisinopril 10 mg tablet 10 mg PO DAILY 04/30/23 06/09/24 sodium chloride 0.65 % nasal spray 1 - 2 spray intranasal Q2-3H PRN 04/30/23 06/09/24 aerosol (Saline Nasal) congestion clindamycin phosphate 1 % topical 1 appl topical DAILY 06/24/23 06/09/24 solution tacrolimus 0.1 % topical ointment 1 appl topical DIRECTED 06/24/23 06/09/24 venlafaxine 150 mg 150 mg PO QAM 06/24/23 06/09/24 capsule,extended release 24 hr dicyclomine 20 mg tablet 20 mg PO .COMPLEX 07/13/23 06/09/24 hydrocortisone 2.5 % topical 1 appl topical BID 08/18/23 06/09/24 ointment omeprazole 20 mg capsule,delayed 20 mg PO QAM 08/18/23 06/09/24 release cyclobenzaprine 5 mg tablet 5 mg PO TID 06/14/24 Previous Rx's ?Medication ?Instructions ?Recorded gabapentin 100 mg capsule 200 mg (2 x 100 mg) PO TID #180 03/14/24 caps ondansetron HCl 4 mg tablet 4 mg PO Q6H PRN nausea and 04/09/24 vomiting #10 tabs tramadol 50 mg tablet 50 mg PO Q6H PRN pain #20 tabs 05/03/24 Allergies Allergy/AdvReac Type Severity Reaction Status Date / Time penicillin G [PENICILLIN G] Allergy Severe ANAPHYLAXIS Verified 09/12/24 15:55 shrimp Allergy Severe Anaphylaxis Verified 09/12/24 15:55 Penicillins [PCN] Allergy Unknown Verified 09/12/24 15:55 Review of Systems 2 Constitutional: Constitutional: Reports no additional constitutional complaints, Denies chills, Denies fever(s) and Denies night sweats Eyes: Eyes: Reports no additional eye complaints, Denies blurry vision, Denies change in vision, Denies diplopia, Denies eye discharge, Denies loss of vision and Denies eye pain ENT: Denies dizziness Cardiovascular: Cardiovascular: Reports no additional cardiovascular complaints, Reports chest pain, Denies lightheadedness, Denies Loss of Consciousness and Reports dyspnea Respiratory: Respiratory: Reports no additional respiratory complaints and Reports dyspnea Gastrointestinal: Gastrointestinal: Reports no additional gastrointestinal complaints, Denies abdominal pain, Denies melena, Denies hematochezia, Denies change in bowel habits and Denies change in stool character Genitourinary: Genitourinary: Denies hematuria, Denies urinary frequency, Denies dysuria, Denies urinary incontinence, Denies urinary hesitancy and Denies urinary urgency Musculoskeletal: Musculoskeletal: Reports no additional musculoskeletal complaints, Denies numbness and Denies tingling Neurologic: Denies dizziness, Denies loss of vision, Denies numbness and Denies tingling Psychiatric: Psychiatric: Reports no additional psychiatric complaints Endocrine: Endocrine: Reports no additional endocrine complaints Hematologic/Lymphatic: Hematologic/Lymphatic: Reports no additional hematologic/lymphatic complaints Allergic/Immunologic: Allergic/Immunologic: Reports no additional allergic/immunologic complaints PMFSH Past Medical History Attestation statement: The following information was validated with the patient. Source: old records reviewed and nursing notes reviewed Medical History Epidermal cyst Pes cavus of both feet Allergies Headache GERD (gastroesophageal reflux disease) Surgical History History of removal of cyst (~06/27/24) History of shoulder surgery History of tubal ligation Hx of tonsillectomy Family History Family History Mother Arthritis Father Diabetes Social History Social History Household Members: Significant Other Are you a primary medicare sales representative to a significant other at home: No Do you presently have visiting nurse or other home services: No Alcohol intake: former Patient Tobacco Use Status: Former Tobacco user Advance Directives: No Advance Directives Information Provided: No Current occupational status: employed and unemployed Physical Exam 2 Vital Signs: Vital Signs: Last Vital Signs Temp 98 F 09/12/24 15:54 Pulse 62 09/12/24 15:54 Resp 18 09/12/24 15:54 BP 97/54 L 09/12/24 15:54 Pulse Ox 100 09/12/24 15:54 O2 Del Method Room Air 09/12/24 15:54 BMI result Body Mass Index 32.2 Const: General: cooperative, no acute distress, alert and awake Nutritional Appearance: well nourished Orientation/consciousness: patient oriented x3 Limitations: no limitations HEENT: Head: Yes normal to inspection and Yes atraumatic Ears: hearing grossly normal bilaterally and external ears normal General nose exam: Normal external nose present, no nasal discharge noted and no epistaxis Face and sinus: Yes normal facial exam, No abrasion and No laceration Mouth: Normal oral and palatal mucosa present, no drooling and no muffled voice Eyes: General: appearance normal, both eyes and all related structures P eriorbital: periorbital findings normal Eyelids: Yes eyelids normal C onjunctivae: conjunctivae normal Pupils: Equal, round and reactive pupils present EOM: EOMs intact bilaterally Neck: Neck: Yes normal visual inspection, Yes full ROM and Yes no lymphadenopathy Chest: Chest palpation & inspection: normal inspection of the chest Resp: Effort & Inspection: normal respiratory effort and able to speak in complete sentences GI: Inspection: Yes normal to inspection Neuro: General: patient oriented x3 and moves all extremities Cranial nerves: Yes Equal, round and reactive pupils present Cognition (Neuro): n ormal cognition Extrem: General: Yes normal to inspection, Yes full ROM and Yes capillary refill normal Psych: Appearance: grossly normal Mental Status: mental status grossly normal Affect: normal affect Attitude: cooperative Thought process: N ormal thought process present Thought content: Normal thought content present Insight: Good insight present (Psych) Course Course Course Narrative: RME performed by Danette Bond PA-C. Patient is a 49 year old assigned female at presenting to the emergency department with chest pain and shortness of breath. Detailed physical exam and review of systems are deferred to the principal java software engineer. EKG, labs, imaging, and swabs ordered. Patient placed back in the waiting room pending room availability and results. Medical Decision Making Medical Decision Making MDM Narrative: Patient is a 49 year old assigned female at with a history of fibromyalgia, GERD, and osteoarthritis presenting to the emergency department today with chest pain and shortness of breath. Patient's limited physical exam performed in triage was unremarkable. Patient's blood work was unremarkable. Patient's EKG was unremarkable. Patient's chest x-ray showed no acute process. Patient left the department without completing treatment. Patient left the department before myself or any of the other emergency department clinicians could explain to or review with the patient; physical exam findings, test results, need or lack there of for additional testing, need or lack there of for a procedure to be performed, need or lack there of for hospital admission / transfer, need or lack there of for prescription medication, treatment options, or a treatment plan. Differential Diagnosis Differential Diagnoses: The differential diagnosis associated with the presentation includes Chest pain Shortness of breath Admission/Observation Consideration of admission/observation: Escalation of care including admission/observation considered Patient would have been admitted to the hospital had she completed her work up and it had any findings where hospital admission was appropriate, her clinical presentation warranted hospital admission, had myself or any other emergency director emergency department had the ability to discuss need or lack there of for hospital admission, and the patient hadn't left the department without completing treatment. Lab Data [facility] Lab Attestation statement: I reviewed the patient's lab results. My interpretation of these results are in the [facility] Rationale portion of this note. 09/12/24 17:04 09/12/24 17:04 Labs: Lab Results 09/12/24 Range/Units 17:04 WBC 8.4 (4.8-10.8) X10*3/uL RBC 4.56 (4.20-5.50) X10*6/uL Hgb 13.8 (12.0-16.0) g/dl Hct 41.7 (37.0-47.0) % MCV 91.4 (80.0-98.0) fL MCH 30.3 (27.0-33.0) pg MCHC 33.1 (31.0-35.0) g/dl RDW 13.4 (11.0-16.0) % Plt Count 312 (160-400) X10*3/uL MPV 10.2 (9.4-12.3) fL Immature Gran % (Auto) 0.4 (0.0-0.4) % Neut % (Auto) 61.7 (45-73) % Lymph % (Auto) 30.2 (20-40) % [place] % (Auto) 5.2 (2-11) % Eos % (Auto) 2.0 (0-4) % Baso % (Auto) 0.5 (0-2) % Lymph # (Auto) 2.6 (1.2-4.9) X10*3/uL [place] # (Auto) 0.4 (0.1-1.2) X10*3/uL Eos # (Auto) 0.2 (0.0-0.4) X10*3/uL Baso # (Auto) 0.0 (0.0-0.2) X10*3/uL Abs Immat Gran (auto) 0.03 (0.00-0.03) X10*3/uL Absolute Neuts (auto) 5.2 (2.0-8.3) x10*3/uL Absolute Nucleated RBC 0.000 (0.0-0.012) X10*3/uL Nucleated RBC % (auto) 0.0 (0.0-0.2) /100WBC Sodium 140 (135-145) mmol/L Potassium 4.0 (3.3-5.1) mmol/L Chloride 105 (96-108) mmol/L Carbon Dioxide 25 (22-29) mmol/L Anion Gap 14 (12-20) BUN 17 H (9-16) mg/dL Creatinine 0.83 (0.5-1.4) mg/dL Estim Creat Clear Calc 93.9 Estimated GFR > 60 Random Glucose 135 H (60-115) mg/dL Calcium 9.8 D (8.4-10.2) mg/dL Magnesium 2.0 (1.6-2.6) mg/dL Total Bilirubin 0.3 (0.0-1.0) mg/dL AST 18 (5-31) U/L ALT 20 (0-31) U/L Alkaline Phosphatase 83 (39-117) U/L Troponin I High Sens < 2.7 (<3.5-17.0) ng/L Total Protein 7.9 (6.5-8.0) g/dL Albumin 4.1 (3.5-5.0) g/dL Influenza Type A (PCR) NEGATIVE (Negative) Influenza Type B (PCR) NEGATIVE (Negative) RSV RNA Qual (PCR) NEGATIVE (Negative) SARS-CoV-2 RNA (RT-PCR) NEGATIVE (Negative) Independent Interpretation I performed an independent interpretation of an: EKG and Plain X-Ray Interpretation: My interpretation is in agreement with the radiologist's impression of this imaging study. L EXAMINATION: XR chest 2V CLINICAL INFORMATION: SOB COMPARISON: 12/26/2022 TECHNIQUE: 2 views of the chest FINDINGS: Clear lungs. No pneumothorax. No pleural effusion. Normal cardiomediastinal silhouette. XR/XR chest 2V IMPRESSION: No acute cardiopulmonary findings. Electronically signed by: Ilene Echavarria MD 09/12/2024 06:06 PM [facility] Dictated By: Ilene Echavarria MD Signed By: Electronically signed by Ilene Echvaarria MD 09/12/24 1806 Vent. Rate: 073 BPM Atrial Rate: 073 BPM P-R Int: 126 ms QRS Dur: 078 ms QT Int: 392 ms P-R-T Axes: 057 043 064 degrees QTc Int: 431 ms Normal sinus rhythm Possible Left atrial enlargement Borderline ECG When compared with ECG of 17-MAR-2023 13:30, No significant change was found Referred By: Danette Bond Electronically Signed By:Ezra Andersen Dictated By: Ezra Andersen MD Signed By: Electronically signed by Ezra Andersen MD 09/13/24 1516 Radiology Impression Discussion of test interpretation with radiology: I have reviewed the radiologist's reading. Discharge Plan Discharge Clinical Impression: Chest pain, Shortness of breath Patient Disposition: Left W/O Completing Treatment Prescriptions: No Action cetirizine 10 mg tablet 1 tab PO DAILY topiramate 50 mg tablet 1 tab PO DAILY tramadol 50 mg tablet 50 mg PO Q6H PRN (Reason: pain) Qty: 20 0RF ondansetron HCl 4 mg tablet 4 mg PO Q6H PRN (Reason: nausea and vomiting) Qty: 10 0RF ketoconazole 2 % shampoo 1 appl topical 2XW buspirone 30 mg tablet 30 mg PO BID ferrous gluconate 324 mg (38 mg iron) tablet 324 mg PO QAM Saline Nasal 0.65 % aerosol,spray 1 - 2 spray intranasal Q2-3H PRN (Reason: congestion) lidocaine 5 % adhesive patch,medicated 1 patch transdermal Q3D PRN (Reason: pain) diphenhydramine HCl [Banophen] 25 mg capsule 50 mg PO Q4-6H PRN (Reason: Anxiety) xuaopsinri-cipnnnkhxisha-gths 50-325-40 mg tablet 1 - 2 tab PO Q6-8H PRN (Reason: Migraine Headache) acetaminophen 650 mg tablet extended release 650 mg PO Q8H PRN (Reason: mild pain) clonazepam 1 mg tablet 1.5 mg PO BEDTIME lisinopril 10 mg tablet 10 mg PO DAILY fluticasone propionate 50 mcg/actuation spray,suspension 2 spray intranasal DAILY citalopram 10 mg tablet 20 mg PO DAILY gabapentin 100 mg capsule 200 mg PO TID Qty: 180 2RF cyclobenzaprine 5 mg tablet 5 mg PO TID tacrolimus 0.1 % ointment 1 appl topical DIRECTED venlafaxine 150 mg capsule,extended release 24hr 150 mg PO QAM clindamycin phosphate 1 % solution 1 appl topical DAILY dicyclomine 20 mg tablet 20 mg PO .COMPLEX Rx Instructions: 20 mg orally before breakfast, lunch, and dinner; omeprazole 20 mg capsule,delayed release(DR/EC) 20 mg PO QAM hydrocortisone 2.5 % ointment 1 appl topical BID Discharge Date/Time: 09/12/24 22:33
[2024-09-12 17:07] LABS: MANUAL DIFF FLAG NO
[2024-09-12 17:31] LABS: Alanine Aminotransferase 20 U/L (0-31); Albumin Level 4.1 g/dL (3.5-5.0); Alkaline Phosphatase 83 U/L (39-117); Anion Gap 14 (12-20); Aspartate Amino Transferase 18 U/L (5-31); Bilirubin Total 0.3 mg/dL (0.0-1.0); Blood Urea Nitrogen 17 mg/dL (9-16); Calcium 9.8 mg/dL (8.4-10.2); Carbon Dioxide 25 mmol/L (22-29); Chloride 105 mmol/L (96-108); Creatinine Clr Calc Pharmacy 93.9; Estimated Glomerular Filt Rate > 60; Glucose Random 135 mg/dL (60-115); Sodium 140 mmol/L (135-145); Total Protein 7.9 g/dL (6.5-8.0)
[2024-09-12 17:32] LABS: Basophils Percent Auto 0.5 % (0-2); Eosinophils Absolute Auto 0.2 X10*3/uL (0.0-0.4); Hematocrit 41.7 % (37.0-47.0); Hemoglobin 13.8 g/dl (12.0-16.0); Imm Gran Abs Auto 0.03 X10*3/uL (0.00-0.03); Imm Gran Pct Auto 0.4 % (0.0-0.4); Lymphocytes Absolute Auto 2.6 X10*3/uL (1.2-4.9); Lymphocytes Percent Auto 30.2 % (20-40); Mean Corpuscular HGB Conc 33.1 g/dl (31.0-35.0); Mean Corpuscular Hemoglobin 30.3 pg (27.0-33.0); Mean Corpuscular Volume 91.4 fL (80.0-98.0); Mean Platelet Volume 10.2 fL (9.4-12.3); Monocytes Absolute Auto 0.4 X10*3/uL (0.1-1.2); Monocytes Percent Auto 5.2 % (2-11); Neutrophils Absolute Auto 5.2 x10*3/uL (2.0-8.3); Neutrophils Percent Auto 61.7 % (45-73); Platelet Count 312 X10*3/uL (160-400); Red Blood Count 4.56 X10*6/uL (4.20-5.50); Red Cell Distribution Width 13.4 % (11.0-16.0); White Blood Count 8.4 X10*3/uL (4.8-10.8)
[2024-09-12 17:42] LABS: Troponin-I High Sensitivity < 2.7 ng/L (<3.5-17.0)
[2024-09-12 18:01] LABS: Influenza A PCR NEGATIVE (Negative); Influenza B PCR NEGATIVE (Negative); Resp Syncy Virus RNA Qual PCR NEGATIVE (Negative); SARS COV2 PCR INHOUSE NEGATIVE (Negative)
--- NOTE | 2024-09-12 22:29 | PC.NURSE ---
Pt no answer when called for reassessment.
== END 2024-09-12 22:33 | disposition left against medical advice (07) ==
PROVIDERS: Physician Assistant Medical; Emergency Provider Emergency Medicine; PCP Internal Medicine
DX: R07.89 Other chest pain (principal); R06.02 Shortness of breath; Z03.818 Encounter for observation for suspected exposure to other biological agents ruled out; Z79.899 Other long term (current) drug therapy; Z87.891 Personal history of nicotine dependence
CPT/HCPCS: 0241U; 71046; 80053; 83735; 84484; 85025; 93005; 99283

== ENCOUNTER → 2024-09-12 15:43 | Outpatient (BNV) | payer MEDICAID, SELFPAY | PROVIDERS: Emergency Provider Emergency Medicine; PCP Internal Medicine; Visit Provider Internal Medicine Cardiovascular Disease | DX: R07.9 Chest pain, unspecified (principal) | CPT/HCPCS: 93010 ==

== ENCOUNTER 2024-10-20 10:12 | Outpatient (REF) | payer MEDICAID, SELFPAY ==
[2024-10-20 11:20] LABS: MANUAL DIFF FLAG NO
[2024-10-20 11:28] LABS: Basophils Percent Auto 0.4 % (0-2); Eosinophils Absolute Auto 0.1 X10*3/uL (0.0-0.4); Eosinophils Percent Auto 1.2 % (0-4); Hematocrit 41.3 % (37.0-47.0); Hemoglobin 13.3 g/dl (12.0-16.0); Imm Gran Abs Auto 0.03 X10*3/uL (0.00-0.03); Imm Gran Pct Auto 0.4 % (0.0-0.4); Lymphocytes Absolute Auto 2.3 X10*3/uL (1.2-4.9); Lymphocytes Percent Auto 28.1 % (20-40); Mean Corpuscular HGB Conc 32.2 g/dl (31.0-35.0); Mean Corpuscular Hemoglobin 29.1 pg (27.0-33.0); Mean Corpuscular Volume 90.4 fL (80.0-98.0); Mean Platelet Volume 9.9 fL (9.4-12.3); Monocytes Absolute Auto 0.6 X10*3/uL (0.1-1.2); Monocytes Percent Auto 6.7 % (2-11); Neutrophils Absolute Auto 5.3 x10*3/uL (2.0-8.3); Neutrophils Percent Auto 63.2 % (45-73); Platelet Count 325 X10*3/uL (160-400); Red Blood Count 4.57 X10*6/uL (4.20-5.50); Red Cell Distribution Width 13.2 % (11.0-16.0); White Blood Count 8.3 X10*3/uL (4.8-10.8)
[2024-10-20 11:36] LABS: Estimated Average Glucose 140 mg/dL; Hemoglobin A1C 162.3407 umol/L; Hemoglobin A1c % 6.5 % (<6.0); Total Hemoglobin (HGBA1C) 3393.1629 umol/L
[2024-10-20 12:07] LABS: Erythrocyte Sedimentation Rate 21 MM/HR (0-20)
[2024-10-20 12:25] LABS: Troponin-I High Sensitivity < 2.7 ng/L (<3.5-17.0)
[2024-10-20 12:36] LABS: Syphilis Screen Nonreactive (Nonreactive)
[2024-10-20 12:41] LABS: Alanine Aminotransferase 17 U/L (0-31); Albumin Level 4.2 g/dL (3.5-5.0); Alkaline Phosphatase 78 U/L (39-117); Anion Gap 9 (12-20); Aspartate Amino Transferase 17 U/L (5-31); Bilirubin Total 0.4 mg/dL (0.0-1.0); Blood Urea Nitrogen 17 mg/dL (9-16); Carbon Dioxide 28 mmol/L (22-29); Chloride 108 mmol/L (96-108); Cholesterol 193 mg/dL (<200); Estimated Glomerular Filt Rate > 60; Glucose Random 101 mg/dL (60-115); HDL Cholesterol 65 mg/dL (>40); LDL Cholesterol Calculated 105 mg/dL (<100); Sodium 141 mmol/L (135-145); Total Protein 7.7 g/dL (6.5-8.0); Triglycerides 119 mg/dL (<150)
[2024-10-20 12:44] LABS: Free T4 (Free Thyroxine) 1.23 ng/dL (0.71-1.85)
[2024-10-25 13:23] LABS: Anti Nuclear Antibody Screen NEGATIVE (NEGATIVE)
== END 2024-10-20 10:13 | disposition home or self-care (01) ==
LOC: HO.HHCL 10:12
PROVIDERS: Visit Provider Psychiatry & Neurology Child & Adolescent Psychiatry
DX: F33.42 Major depressive disorder, recurrent, in full remission (principal)
CPT/HCPCS: 36415; 80053; 80061; 83036; 84439; 84484; 85025; 85652; 86038; 86140; 86780

== ENCOUNTER 2024-11-16 14:50 | Outpatient (AMB) | payer MEDICAID, SELFPAY ==
--- NOTE | 2024-11-16 15:06 | A.OFFVIS_ITS ---
Vital Signs 11/16/24 15:13 Height 5 ft 6 in Weight 204 lb 9.423 oz BMI 33.0 BP 90/62 Blood Pressure Location Rt brachial Position Sitting Pulse 89 Pulse Source Pulse Oximeter Pulse Oximetry (%) 97 Oxygen Delivery Method Simple Mask Intake Visit Reasons: FMS/ inflammation Intake Note: Patient presents for FMS/inflammation. Insulation Cupola Operator Required: Yes Insulation Cupola Operator Language: Housing And Residence Life Director Services: Insulation Cupola Operator Present Insulation Cupola Operator Name: Mert [id number] Information Interpreted: non-clinical & clinical Allergies penicillin G [PENICILLIN G] Allergy (Severe, Verified 11/16/24 15:11) ANAPHYLAXIS shrimp Allergy (Severe, Verified 11/16/24 15:11) Anaphylaxis Penicillins [PCN] Allergy (Verified 11/16/24 15:11) Unknown Medication List - Last Reconciled 11/16/24 by Cristino Mathias MD acetaminophen ER 650 mg PO Q8H PRN buspirone 30 mg PO BID siapxebnvi-ibohcbyxjlkjx-uxcq 50-325-40 mg 1 - 2 tabs PO Q6-8H PRN cetirizine 1 tab PO DAILY citalopram 20 mg PO DAILY clindamycin phosphate 1% 1 appl topical DAILY clonazepam 1.5 mg PO BEDTIME cyclobenzaprine 5 mg PO TID dicyclomine 20 mg orally before breakfast, lunch, and dinner; diphenhydramine HCl (Banophen) 50 mg PO Q4-6H PRN ferrous gluconate 324 mg PO QAM fluticasone propionate 50 mcg/actuation 2 sprays intranasal DAILY gabapentin 200 mg (2 x 100 mg) PO TID hydrocortisone 2.5% 1 appl topical BID ketoconazole 2% 1 appl topical 2XW lidocaine 5% 1 patch transdermal Q3D PRN lisinopril 10 mg PO DAILY omeprazole 20 mg PO QAM ondansetron HCl 4 mg PO Q6H PRN sodium chloride 0.65% (Saline Nasal) 1 - 2 sprays intranasal Q2-3H PRN tacrolimus 0.1% 1 appl topical DIRECTED topiramate 1 tab PO DAILY tramadol 50 mg PO Q6H PRN venlafaxine ER 150 mg PO QAM HPI Comments Details: 49-year-old female with fibromyalgia and osteoarthritis returns for an urgent visit. She states that over the last month she has noticed that her hands are tight and she does not have strengthen them, she also gets elbow pain when she touches her elbow. She had done blood work by her psychiatrist and it showed some abnormalities [facility] Medical History Epidermal cyst Pes cavus of both feet Allergies Headache GERD (gastroesophageal reflux disease) Surgical History History of removal of cyst (~06/27/24) History of shoulder surgery History of tubal ligation Hx of tonsillectomy Family History Mother Arthritis Father Diabetes Social History Household Members: Significant Other Are you a primary healthcare network consultant to a significant other at home: No Do you presently have visiting nurse or other home services: No Alcohol intake: former Patient Tobacco Use Status: Former Tobacco user Current occupational status: employed and unemployed Review of Systems Musc Reports arthralgias, Reports joint swelling and Reports stiffness Physical Exam Vital Signs: Last Vital Signs Pulse 89 11/16/24 15:13 BP 90/62 11/16/24 15:13 Pulse Ox 97 11/16/24 15:13 Oxygen Delivery Method Simple Mask 11/16/24 15:13 BMI result Body Mass Index 33.0 Const General: cooperative, healthy appearing and comfortable Nutritional Appearance: obese Orientation/consciousness: patient oriented x3 Limitations: no limitations HEENT Head: Yes normocephalic and Yes atraumatic Resp Effort & Inspection: normal respiratory effort and able to speak in complete sentences Skin General skin exam: no rashes or lesions noted Neuro General: patient oriented x3 Extrem Other: Minimal osteoarthritic changes of both hands but no swollen joints No tender joints noted both hands and wrists No wrist pain with full flexion and extension Negative MCP squeeze test bilaterally Normal bilateral hand management consulting strength No elbow pain with full flexion-extension bilaterally No knee pain with full flexion-extension bilaterally Normal nailfold capillaroscopy Multiple thoracic and lumbar paraspinal muscle tender points Assessment & Plan Assessment & Plan (1) Bilateral hand pain: Code(s): M79.641 - Pain in right hand; M79.642 - Pain in left hand Category: Medical Plan: 49-year-old female with known mild generalized osteoarthritis and fibromyalgia returns for an urgent visit complaining of bilateral hand pain, recent blood work by psychiatrist showed elevated ESR at 34 with normal CRP negative dsDNA. On exam I could not detect any swollen or tender joints, she has normal bilateral hand management consulting strength however given her history of positive ARIANA, her intermittently elevated inflammatory markers as well as new onset feeling of pa in swelling and stiffness of her hands, I will order bilateral hand and wrist ultrasound to evaluate for synovitis/tenosynovitis Follow-up after ultrasound was completed Plan I spent 20 minutes reviewing patient's chart, evaluating patient, ordering diagnostic workup, counseling patient and documenting in the chart Orders: Orders US guided asp or inj major jt Today M79.641 - Pain in right hand, M79.642 - Pain in left hand Coding Level of Care Code Est Pt Level 3 (52718) Diagnoses Bilateral hand pain M79.641; M79.642
[2024-11-16 15:13] VITALS: BP 90/62; PULSE 89; O2SAT 97; BMI 33.0
== END 2024-11-16 15:41 | disposition home or self-care (01) ==
PROVIDERS: PCP Internal Medicine; Visit Provider Student in an Organized Health Care Education/Training Program
DX: M79.641 Pain in right hand (principal); M79.642 Pain in left hand
CPT/HCPCS: 99213

== ENCOUNTER → 2024-11-16 14:50 | Outpatient (BNVA) | payer MEDICAID, SELFPAY | PROVIDERS: PCP Internal Medicine; Visit Provider Student in an Organized Health Care Education/Training Program | DX: M79.7 Fibromyalgia (principal); M79.641 Pain in right hand; M79.642 Pain in left hand | CPT/HCPCS: 99212 ==

== ENCOUNTER 2025-01-06 08:48 | Outpatient (REF) | payer MEDICAID, SELFPAY ==
--- OUTSIDE RECORDS SUMMARY | 2025-01-06 09:23 | XMS_ITS | Clinical Summary ---
Author Organization [address] [facility] Address [address] [place] [address] Phone Care Team Providers [employer] Name Role Phone Gerry Lopez MD Primary Care Provi rufus Allergies Active Allergy Reactions Criticality Noted Date Comments Cream Base Itching 06/09/2023 Penicillin V Rash Low 10/29/2010 Shellfish Containing Products Swelling 2022 Medications acetaminophen (TYLENOL 8 HOUR) 650 mg 8 hr tablet TAKE 1 TABLET BY MOUTH EVERY 8 HOURS IF NEEDED FOR MILD PAIN. DO NOT CRUSH, CHEW, OR SPLIT. 3 Active busPIRone (BUSPAR) 30 mg tablet Take 1 Tablet by mouth. 3 Active butalbital-acet aminophen-caffe ine (FIORICET, ESGIC) 50-325-40 mg per tablet TAKE 1-2 TABS EVERY 6-8 HOURS NEEDED NOT TO EXCEED 6 TABS/24 HOURS & LESS THAN 3 TIMES PER MONTH 3 Active celecoxib (CeleBREX) 100 mg capsule TAKE 1 CAPSULE BY MOUTH TWICE A DAY 3 Active cetirizine (ZyrTEC) 10 mg tablet Take 1 Tablet by mouth daily. 3 Active clindamycin (CLEOCIN T) 1 % external solution APPLY 1 APPLICATION TOPICALLY IN THE MORNING AND AT BEDTIME DAILY 3 Active clonazePAM (KlonoPIN) 1 mg tablet Take 1 Tablet by mouth. 2 Active diclofenac (VOLTAREN) 1 % topical gel Apply 4 g topically 2 times daily. 4 Active diphenhydrAMINE (BENADRYL) 25 mg capsule TAKE 2 CAPSULES BY MOUTH EVERY 4-6 HOURS NEEDED 3 Active dulaglutide (Trulicity) 0.75 mg/0.5 mL pen injector injection Inject 0.75 mg into the skin. 3 Active fluticasone propionate (FLONASE) 50 mcg/actuation nasal spray SPRAY 2 SPRAYS INTO EACH NOSTRIL EVERY DAY 3 Active gabapentin (NEURONTIN) 100 mg capsule TAKE 2 TABLETS PO TID 3 Active lidocaine (LIDODERM) 5 % patch APPLY 1 PATCH BY TRANSDERMAL ROUTE EVERY IF NEEDED FOR PAIN (MAY WEAR UP TO 12 HOURS) 3 Active lisinopriL (PRINIVIL,ZESTR IL) 10 mg tablet Take 1 Tablet by mouth daily. 3 Active meclizine (ANTIVERT) 25 mg tablet TAKE 1 TABLET (25 MG) BY MOUTH NEEDED 3 TIMES A DAY (MORNING, NOON AND AT BEDTIME) FOR DIZZINESS 3 Active omeprazole (PriLOSEC) [address] capsule TAKE 1 CAPSULE BY MOUTH EVERY DAY IN THE MORNING 3 Active venlafaxine XR (EFFEXOR-XR) 150 mg 24 hr capsule TAKE 1 CAPSULE BY MOUTH EVERY DAY IN THE MORNING 2 Active venlafaxine XR (EFFEXOR-XR) 37.5 mg 24 hr capsule TAKE 1 CAPSULE BY ORAL ROUTE EVERY MORNING AT THE SAME TIME WITH FOOD 3 Active Encounters Date Type Department Care Team Description 12/05/2024 1:15 PM EST Office Visit Orthopedic Surgery [place] [address] [phone] Juan Frey, DPM Primary osteoarthritis of both feet (Primary Dx); Disorder of ligament of foot, left; Synovitis and tenosynovitis of left ankle and foot 10/31/2024 12:45 PM EST - 10/31/2024 11:59 PM EST Hospital Encounter [facility] Non-Invasive Cardiology [address] [place] [phone] Major depressive disorder, recurrent, in full remission (CMS/HCC) Discharge Disposition: Home or Self Care 10/12/2024 1:45 PM EST Office Visit Orthopedic Surgery [facility] [address] [phone] Juan Frey DPM Disorder of ligament of foot, left (Primary Dx); Primary osteoarthritis of both feet; Synovitis and tenosynovitis of left ankle and foot from Last 3 Months Social History Tobacco Use Types Packs/Day Years Used Date Smoking Tobacco: Never Assessed Comments Unknown Sex and Gender Information Value Date Recorded Sex Assigned at Not on file Legal Sex Female 5:07 PM EST Gender Identity Not on file Sexual Orientation Not on file Last Filed Vital Signs Vital Sign Reading Time Taken Comments Blood Pressure - - Pulse - - Temperature - - Respiratory Rate - - Oxygen Saturation - - Inhaled Oxygen Concentration - - Weight 95.3 kg (210 lb) 12/05/2024 1:11 PM EST Height 165.1 cm (5' 5 ) 12/05/2024 1:11 PM EST Body Mass Index 34.95 12/05/2024 1:11 PM EST Plan of Treatment Upcoming Encounters Date Type Department Care Team (Late st Contact Info) Description 01/17/2025 1:00 PM EDT Office Visit Orthopedic Surgery [place] [address] [phone] Juan Frey DPM [address] [phone] Health Maintenance Due Date Last Done Comments Breast Cancer Screening 1976 Diabetes: Annual Foot Exam 1986 Diabetes: Annual Retina Eye Exam 1986 HIV Screening 10/01/2022 Hepatitis C Screening 10/01/2022 Social Influencers of Health Screening 10/01/2022 COVID-19 Vaccine (2023-2 5 season) 2024 11/19/2021, 04/28/2021, 03/28/2021 Influenza Vaccine (#1) 2024 01/03/2014 Diabetes: Annual Urine Albumin-Creatinine Ratio (uACR) 10/12/2024 Diabetes: Blood Sugar Contro l Test (HGBA1C) 02/09/2025 08/11/2024, 05/21/2022 Diabetes: Annual GFR (Glomerular Filtration Rate) 09/12/2025 09/12/2024, 04/09/2024 Hypertension/CHF/CAD Annual BMP Blood Test 09/12/2025 09/12/2024, 04/09/2024 Depression Screening 11/01/2025 11/01/2024 Cervical Cancer Screening: HPV 04/17/2026 04/17/2021 Colorectal Cancer Screening: FIT-DNA (Cologuard) 12/18/2026 12/18/2023, 12/18/2023 DTaP,Tdap,and Td Vaccines (3 - Td or Tdap) 04/30/2027 04/30/2017, 03/25/2004 Cholesterol Screening (Lipid Panel) 08/18/2029 08/18/2024, 06/03/2023 Hepatitis A Vaccines Aged Out 11/19/2012, 03/15/2012 No longer eligible based on patient's age to complete this topic Hepatitis B Vaccines Completed 01/03/2014, 11/19/2012, 03/15/2012 HIB Vaccines Aged Out No longer eligi ble based on patient's age to complete this topic HPV Vaccines Aged Out No longer eligi ble based on patient's age to complete this topic IPV Vaccines Aged Out No longer eligi ble based on patient's age to complete this topic MMR Vaccines Aged Out No longer eligi ble based on patient's age to complete this topic Meningococcal ACWY Vaccine Aged Out N o longer eligible based on patient's age to complete this topic Meningococcal B Vacine Aged Out No lo nger eligible based on patient's age to complete this topic Pneumococcal Vaccine: Pediatrics (0 to 5 Years) and At-Risk Patients (6 to 64 Years) Aged Out No longer eligible b ased on patient's age to complete this topic RSV Immunization Patients Under 20 months Aged Out No longer eligible b ased on patient's age to complete this topic Varicella Vaccines Aged Out No longer eligible based on patient's age to complete this topic Procedures Procedure Name Priority Date/Time Associated Diagnosis Comments INJECTION TENDON OR LIGAMENT Routine 12/05/2024 1:15 PM EST Synovitis and tenosynovitis of left ankle and foot ARIANA IFA WITH TITER AND PATTERN Routine 11/10/2024 12:54 PM EST Major depressive disorder, recurrent episode, moderate (CMS/HCC) SEDIMENTATION RATE Routine 11/10/2024 12 :54 PM EST Major depressive disorder, recurrent episode, moderate (CMS/HCC) VITAMIN D 25 HYDROXY Routine 11/10/2024 12:54 PM EST Major depressive disorder, recurrent episode, moderate (CMS/HCC) VITAMIN B12 Routine 11/10/2024 12:54 PM EST Major depressive disorder, recurrent episode, moderate (CMS/HCC) VITAMIN B1 Routine 11/10/2024 12:54 PM EST Major depressive disorder, recurrent episode, moderate (CMS/HCC) ANTI-DNA ANTIBODY, DOUBLE-STRANDED Routine 11/10/2024 12:54 PM EST Major depressive disorder, recurrent episode, moderate (CMS/HCC) C-REACTIVE PROTEIN Routine 11/10/2024 12 :54 PM EST Major depressive disorder, recurrent episode, moderate (CMS/HCC) FOLATE Routine 11/10/2024 12:54 PM EST Major depressive disorder, recurrent episode, moderate (CMS/HCC) ECG 12-LEAD Routine 10/31/2024 12:37 PM EST Major depressive disorder, recurrent, in full remission (CMS/HCC) INJECTION TENDON OR LIGAMENT Routine 10/12/2024 1:45 PM EST Disorder of ligament of foot, left ANNUAL BMP BLOOD TEST Routine 04/09/2024 HM FIT-DNA Routine 12/18/2023 LIPID PANEL Routine 06/03/2023 HEMOGLOBIN A1C Routine 05/21/2022 HM HPV Routine 04/17/2021 from Last 3 Months or Most Recently Relevant to Health Maintenance Results * Injection tendon or ligament (12/05/2024 1:15 PM EST) Juan Garcia DPM - 12/05/2024 1:15 PM EST Juan Frey DPM ? 12/05/2024 ??6:43 PM Injection tendon or ligament Indications: pain Details: 25 G needle Medications: 0.5 mL lidocaine (PF) 1 %; 20 mg triamcinolone acetonide 40 mg/mL Informed Consent: ??Site: ??Foot ligament tendon Juan Frey DPM IN CLINIC/BEDSIDE ORDERAB LES Final Result * ARIANA IFA with titer and pattern (11/10/2024 12:54 PM EST) ARIANA Negative Negative 11/11/2024 10:51 AM EST [facility] Blood Venous blood specimen / Unknown Venipuncture / Unknown 11/10/2024 12:54 PM EST 11/10/2024 4:04 PM EST Albert Diaz MD LAB BLOOD ORDERABLES Final Re sult [facility] [address] [place] [address], * DNA antibody, double-stranded (11/10/2024 12:54 PM EST) Anti-DNA Double Stranded Antibody Negative Negative LAB CHEMISTRY METHOD 11/13/2024 11:12 AM EST [facility] ds DNA Ab 20 <=200 I Unit/mL LAB CHEMISTRY METHOD 11/13/2024 11:12 AM EST [facility] Blood Venous blood specimen / Unknown Venipuncture / Unknown 11/10/2024 12:54 PM EST 11/10/2024 4:04 PM EST us Albert Diaz MD LAB BLOOD ORDERABLES Final Re sult [facility] [address] [place] [address], * (ABNORMAL) Vitamin D 25 hydroxy (11/10/2024 12:54 PM EST) [facility] Vit D, 25-Hydroxy 14.3(L) 30.0 - 80.0 ng/mL LAB CHEMISTRY METHOD 11/10/2024 6:17 PM EST [facility] Blood Venous blood specimen / Unknown Venipuncture / Unknown 11/10/2024 12:54 PM EST 11/10/2024 4:04 PM EST us Albert Diaz MD LAB BLOOD ORDERABLES Final Re sult [facility] [address] [place] [address], * (ABNORMAL) Sedimentation rate (11/10/2024 12:54 PM EST) [facility] Sed Rate 34(H) 0 - 20 mm/hr LAB HEMETOLOGY METHOD 11/10/2024 4:32 PM EST [facility] Blood Venous blood specimen / Unknown Venipuncture / Unknown 11/10/2024 12:54 PM EST 11/10/2024 4:03 PM EST us Albert Diaz MD LAB BLOOD ORDERABLES Final Re sult [facility] [address] [place] [address], [place] [phone] * C-reactive protein (11/10/2024 12:54 PM EST) [facility] C-Reactive Protein 0.48 <=0.50 mg/dL LAB CHEMISTRY METHOD 11/10/2024 6:10 PM EST [facility] Blood Venous blood specimen / Unknown Venipuncture / Unknown 11/10/2024 12:54 PM EST 11/10/2024 4:04 PM EST us Albert Diaz MD LAB BLOOD ORDERABLES Final Re sult Performing Organization Address City/[facility] Co de Phone Number [facility]) [facility] [address] [place] [address], [place] [phone] * Vitamin B1 (11/10/2024 12:54 PM EST) Pathologist [facility] Vitamin B1 Whole Blood 58 38 - 122 ug/L 11/15/2024 9:38 AM EST [facility] Comment: This test was developed and the performance characteristics determined by [facility]. It has not been cleared or approved by the FDA. The laboratory is regulated under CLIA as qualified to perform high-complexity testing. This test is used for patient testing purposes. It should not be regarded as investigational or for research. Test performed at [facility], [address] , [place], [place] ??[address] ? [phone] Katelynn Dotson MD, PhD - [employer] Blood Venous blood specimen / Unknown Venipuncture / Unknown 11/10/2024 12:54 PM EST 11/10/2024 4:04 PM EST us Albert Diaz MD LAB BLOOD ORDERABLES Final Re sult Performing Organization Address [facility] de Phone Number [facility] [address] [place] [address] * Folate (11/10/2024 12:54 PM EST) Pathologist [facility] Folate 9.5 2.8 - 17.0 ng/ml LAB CHEMISTRY METHOD 11/10/2024 6:33 PM EST [facility] Blood Venous blood specimen / Unknown Venipuncture / Unknown 11/10/2024 12:54 PM EST 11/10/2024 4:04 PM EST us Albert Diaz MD LAB BLOOD ORDERABLES Final Re sult Performing Organization Address City/[facility]/ZIP Co de Phone Number [facility] [address] [place] [address], [place] [phone] * Vitamin B12 (11/10/2024 12:54 PM EST) [facility] Vitamin B-12 401 250 - 900 pcg/mL LAB CHEMISTRY METHOD 11/10/2024 6:33 PM EST [facility] Blood Venous blood specimen / Unknown Venipuncture / Unknown 11/10/2024 12:54 PM EST 11/10/2024 4:04 PM EST us Albert Diaz MD LAB BLOOD ORDERABLES Final Re sult Performing Organization Address [facility] Co de Phone Number [facility] [address] [place] [address], [place] [phone] * ECG 12 lead (10/31/2024 12:37 PM EST) [facility] Ventricular Rate ECG 67 BPM GEMUSE Atrial Rate 67 BPM GEMUSE P-R Interval 128 ms GEMUSE QRS Duration 78 ms GEMUSE Q-T Interval 400 ms GEMUSE QTc 422 ms GEMUSE P Wave [place] 58 degrees GEMUSE R [place] 39 degrees GEMUSE T [place] 58 degrees GEMUSE ECG Interpretation Normal sinus rhythm Cannot rule out Anterior infarct , age undetermined Abnormal ECG When compared with ECG of 02-JUL-2022 13:30, QT has shortened Confirmed by BJORN MOORE ([id number]) on 10/31/2024 7:55:17 PM GEMUSE 10/31/2024 12:3 7 PM EST 10/31/2024 7:55 PM EST us Albert Diaz MD ECG ORDERABLES Final Result Performing Organization Address [facility] Co de Phone Number GEMUSE * Injection tendon or ligament (10/12/2024 1:45 PM EST) Narrative Juan Frey DPM - 10/12/2024 1:45 PM EST Juan Frey DPM ? 10/12/2024 ??7:24 PM Injection tendon or ligament Indications: pain Details: 25 G needle Medications: 0.5 mL lidocaine (PF) 1 %; 20 mg triamcinolone acetonide 40 mg/mL Informed Consent: ??Site: ??Foot ligament tendon Result [facility] Juan Frey DPLadan IN CLINIC/BEDSIDE ORDERAB LES Final Result * Annual BMP Blood Test (04/09/2024) Pathologist [facility] Annual BMP Blood Test abstracted Result [facility] Provider HEALTH MAINTENANCE Final Result * FIT-DNA (Cologuard) (12/18/2023) [facility] Colorectal Cancer Screening: FIT-DNA (Cologuard) no interpretation , abstracted Result [facility] Provider HEALTH MAINTENANCE Final Result * Lipid panel (06/03/2023) [facility] Triglycerides 0 mg/dL Comment:no interpretation Cholesterol 0 mg/dL Comment:no interpretation HDL 0 mg/dL Comment:no interpretation LDL Cholesterol 0 mg/dL Comment:no interpretation Blood Venous blood specimen / Unknown Result [facility] Provider LAB BLOOD ORDERABLES Juyd l Result * Hemoglobin A1c (05/21/2022) [facility] Hemoglobin A1C 0.0 % Comment:no interpretation Blood Venous blood specimen / Unknown Result [facility] Provider LAB BLOOD ORDERABLES Judy l Result * Cervical Cancer Screening: HPV (04/17/2021) Pathologist [facility] Cervical Cancer Screening: HPV no interpretation , abstracted Result [facility] Historical Provider HEALTH MAINTENANCE Final Result from Last 3 Months or Most Recently Relevant to Health Maintenance Insurance MEDICAID - [place] Care Teams [employer] Relationship Specialty Start Date End Date Gerry Lopez MD [address] [place] [address] [place] [address] PCP - General 07/29/22
--- OUTSIDE RECORDS SUMMARY | 2025-01-06 09:23 | XMS_ITS | Patient Health Record ---
Author Organization [facility] Address [address] [place] [address] Care Team Providers Care Drainman Name Role Phone Shantell Whitehead MD, Gerry Primary Care Provide Wesley Montalvo Jr Unavailable Allergies Allergen (clinical drug ingredient) Drug/Non Drug Allergy documented on EMR Reaction Allergy Type Onset Date Status shrimp allergenic extract Shrimp (Diagnostic) Unknown Drug Allergy Active Penicillin Unknown Drug Allergy Active Results Component Value Reference Range Notes Pathology Reviewed date:02/25/2024 09:37:02 AM Interpretation: Performing Lab:[facility], [address] [place] [phone] Notes/Report: Name: Cherelle Smith Age/Sex: 48/F : 1975 Unit#: [id number] Attend Dr: Wesley Olivo MD Re02/12/24 Status : [facility] Location: [facility] Disch: SPEC : [id number] RECD : 02/12/240 STATUS: JOSÉ LUIS HECK NUM: [id number] TRAY: 02/12/24-[address] [facility] [address]: Wesley Olivo MD ENTERED: 02/12/24-13 28 SP TYPE: Surgical OTHR DR: Gerry Lopez MD ORDERED: HE Stain/12 , Gross Micro L4/4, IHC, Special st. 2/3, H. pylori, AB/PAS/3 Diagnosis A. Duodenum, biopsy: Duodenal mucosa with preserved villi and no specific change. B. Gastric antrum, b iopsy: Chronic Helicobacter gastritis with mild activity; negative for intestinal metap lasia and dysplasia. C. Esophago-gastric junction, biopsy: Squamocolumnar mucosa with mild chronic active inflammation and sup erficial bacteria compatible with H. pylori; negative for intestinal metaplasia and dysplasia. D. Colon, at 20 cm, polyp: Hyperplastic polyp. Clinical History Pre-Op Dx: Other fec al abnormalities, GERD Post-Op Dx: GERD and colon polyp Microscopic Description Microscopic sections reviewed.? Immunostain for H. pylori on B is positive.? AB/PAS on A is negative for evidenc e of chronic injury.? AB/PAS on B and C are negative for intestinal metaplasia.? Control s stain appropriately. Material Received A. Duodenum B. Antral bx's C. EG junction bx's D. Polyp at 20 cm Gross Description Received in 4 parts. A. Received in forma joseph labeled ?duodenuml? are 2 fragments of pink-almaraz soft tissue measuring 0.4 and 0. 5 cm in greatest dimension which are wrapped in lens paper and entirely submitted for micros copic examination, 2 pieces in cassette A. B. Received in forma joseph labeled ?antral biopsies? are 2 fragments of translucent almaraz white soft tissue measurin g 0.3 and 0.4 cm in greatest dimension which are wrapped in lens paper and entirely submitt ed for microscopic examination, 2 pieces in cassette B. C. Received in forma joseph labeled ?EG junction biopsies? are 4 fragments of translucent almaraz CONTINUED ON NEXT PAGE Name: Cherelle Smith Age/Sex: 48/F : 1975 Unit#: [id number] Attend Dr: Wesley Olivo MD Re02/12/24 Status : [facility] Location: [facility] Disch: SPEC : [id number] RECD : 02/12/24-1320 STATUS: JOSÉ LUIS HECK NUM: [id number] TRAY: 02/12/24-[address] [facility] [address]: Wesley Olivo MD ENTERED: 02/12/24- SP TYPE: Surgical OTHR DR: Gerry Lopez MD ORDERED: HE Stain/12 , Gross Micro L4/4, IHC, Special st. 2/3, H. pylori, AB/PAS/3 Gross Description (Continued) white soft tissue ra nging from 0.3-0.5 cm in greatest dimension which are wrapped in lens paper and entirely s ubmitted for microscopic examination, 4 pieces in cassette C. D. Received in forma joseph labeled ?polyp at 20 cm? is a polypoid portion of red-almaraz soft tissue measuring 0.8 x 0.7 x 0.6 cm in greatest dimension. The base of the specimen is inked blue. The spec imen is bisected. The specimen is wrapped in lens paper and entirely submitted for micros copic examination, 2 pieces in cassette D. [facility] [place] Special studies orde red and performed: Immunostain for H. pylori on B1; AB/PAS stains on A1, B1, and C1. Copies To: Wesley Olivo MD [address] [place] [address] [id number] [place] [id number] Gerry Lopez MD [address] [facility] [place] [id number] Signed (si gnature on file) Tamy Lowe 02/17/24 1244 END OF REPORT Reason For Referral Referring Provider First Name Gerry Referring Provider Last Name Shantell sellers Referring Provider Speciality Internal M edicine Referred Organization [facility] Referred Provider Wesley Olivo Jr Referred Address [address] [place] [address],[place] [address],[place],[phone], Referred Provider Specialty Gastroentero logy Referral Priority Routine Medications Medication SIG (Take, Route, Frequency, Duration) Notes Start Date End Date Status Ketoconazole 2 % APPLY TO SCALP TWICE A WEEK, LEAVE ON FOR 5 MIN, THEN RINSE. External for 30 Active FreeStyle Lancets - USE 1 LANCET TO TEST BLOOD GLUCOSE 2 TIMES A DAY for 50 Active Lidocaine 5 % APPLY 1 PATCH EVERY DAY NEEDED FOR PAIN (MAY WEAR UP TO 12 HOURS), REMOVE FOR 12 HOURS External for 30 Active Lisinopril 10 MG TAKE 1 TABLET BY ZOILA TH EVERY DAY Oral for 90 Active busPIRone HCl 30 MG TAKE 1 TABLET BY ZOILA TH TWICE A DAY Oral for 90 Active Cetirizine HCl 10 MG TAKE 1 TABLET BY MO UTH EVERY DAY Oral for 90 Active clonazePAM 1 MG TAKE 1 AND 1/2 TABLE T BY MOUTH AT BEDTIME Oral for 30 Active metFORMIN HCl ER 500 MG TAKE 2 TABLETS B Y MOUTH EVERY DAY WITH EVENING MEALS Oral for 90 Active Dicyclomine HCl 20 MG 1 tablet Orally 2- 4 times a day 05/02/2015 Active Omeprazole 20 MG TAKE 1 CAPSULE BY MO UTH EVERY 12 HRS Oral for 15 Active Ferrous Gluconate 324 (38 Fe) MG TAKE 1 TABLET BY MOUTH WITH BREAKFAST Oral for 90 Active Dulcolax (colon prep) 5 MG take at 3:00 p.m and 7:00p.m. Orally two tablets twice a day for one day for 1 day 01/13/2024 Active MiraLax (colon prep) 8.3 ounce ((238) grams mixed with Gatorade or Crystal Light orally begin at 5:00 p.m. the day before the procedure for 1 day 01/13/2024 Active metroNIDAZOLE 500 MG 1 tablet Orally Thr ee times a day for 14 days 02/24/2024 Active Omeprazole 20 MG 1 Orally Twice a day for 14 days 02/24/2024 Active Celecoxib 100 MG TAKE 1 CAPSULE BY MO UTH TWICE A DAY Oral for 30 Active Clarithromycin 500 MG 1 tablet Orally Tw ice a day for 14 days 02/24/2024 Active Betamethasone Dipropionate 0.05 % PLEASE SEE ATTACHED FOR DETAILED DIRECTIONS External for 7 Active FreeStyle Lite Test - USE 1 EACH BY DIRECTED ROUTE 2 TIMES EVERY DAY In Vitro for 25 Active Diclofenac Sodium 1 % APPLY 4 G TOPICALL Y 2 TIMES DAILY. External for 30 Active Fluticasone Propionate 50 MCG/ACT SPRAY 2 SPRAYS INTO EACH NOSTRIL EVERY DAY Nasal for 90 Active Gabapentin 100 MG TAKE 2 CAPSULES BY M OUTH 3 TIMES A DAY Oral for 30 Active predniSONE 20 MG TAKE 1 TABLET BY OZILA TH EVERY DAY Oral for 5 Active Venlafaxine HCl ER 150 MG TAKE 1 CAPSULE BY MOUTH EVERY DAY IN THE MORNING Oral for 30 Active Baclofen 5 MG TAKE 1 TABLET BY ZOILA TH TWICE A DAY NEEDED FOR MUSCLE SPASMS Oral for 30 Active Acetaminophen ER 650 MG TAKE 1 TABLET BY MOUTH EVERY 8 HOURS IF NEEDED FOR MILD PAIN. DO NOT CRUSH, CHEW, OR SPLIT. Oral for 30 Active Immunizations Vaccine Route Administration Date Status Comme nts Influenza Unknown 01/13/2024 Refused Problems Problem Type SNOMED Code ICD Code Onset Dates Problem Status W/U Status Risk Notes Problem 091419351 Abnormal finding s in stool (R19.5) Active confirmed Problem 612570854 H. pylori infection (A04.8) Active confirmed Problem [id number] Gastroesophageal reflux disease, unspecified whether esophagitis present (K21.9) Active confirmed Problem Gastroesophageal reflux disease (797514676) Chronic GERD (K21.9) Active confirmed Vital Signs Temperature 97.1 degrees Fahrenheit 01/13/2024 Blood pressure diastolic 00 mm Hg 01/13/2024 Height 65.75 in 01/13/2024 Blood pressure systolic 000 mm Hg 01/13/2024 Weight 210 lb 2 oz lbs 01/13/2024 BMI 34.17 kg/m2 01/13/2024 Encounters Encounter Location Date Provider Diagnosis [facility] [address] [place] [phone] 02/12/2024 Wesley Olivo Jr Abnormal findings in stool R19.5 ; Colon polyps K63.5 and Chronic GERD K21.9 [facility] [address] [place] [phone] 01/13/2024 Wesley Olivo Jr Gastroesophageal reflux disease, unspecified whether esophagitis present K21.9 and Abnormal findings in stool R19.5 [facility] [address] [place] [phone] 01/13/2024 Wesley Olivo Jr [facility] [address] [place] [phone] 02/24/2024 Wesley Olivo Jr H. pylori infection A04.8 Assessments Encounter Date Diagnosis (ICD Code) Assessment Notes Treatment Notes Treatment Clinical Notes Section Notes 02/12/2024 Colon polyps (ICD-10 - K63.5) 02/12/2024 Abnormal findings in stool (ICD-10 - R19.5) 01/13/2024 Abnormal findings in stool (ICD-10 - R19.5) We discussed gastroesophageal reflux disease today. We discussed diet and lifestyle modifications. She will continue pantoprazole. Endoscopy will be arranged. She understands risks and benefits and agrees to proceed. She will also have colonoscopy the same time because of her stool test results. She will stop her metformin the day before the prep. He'll stop iron one week before the procedure. Followup will be pending the results of her testing. 01/13/2024 Gastroesophageal reflux disease, unspecified whether esophagitis present (ICD-10 - K21.9) We discussed gastroesophageal reflux disease today. We discussed diet and lifestyle modifications. She will continue pantoprazole. Endoscopy will be arranged. She understands risks and benefits and agrees to proceed. She will also have colonoscopy the same time because of her stool test results. She will stop her metformin the day before the prep. He'll stop iron one week before the procedure. Followup will be pending the results of her testing. 02/24/2024 H. pylori infection (ICD-10 - A04.8) 02/12/2024 Chronic GERD (ICD-10 - K21.9) Plan Of Treatment Pending Test Test Name Order Date H PYLORI AG, STOOL 02/24/2024 Future Test Test Name Order Date UPPER GI ENDOSCOPY 05/02/2015 UPPER GI ENDOSCOPY 01/13/2024 COLONOSCOPY 01/13/2024 Next Appt Details Provider Name:Wesley ferrer , 04/10/2025 10:40:00 AM, [address] [place] [address], [address], [place], [address], Insurance Providers Payer Name Payer Address Payer Phone Subscriber Number Group Number Insured Name Patient Relationship to Insured Coverage Start Date Coverage End Date MEDICAID OF [facility] [employer] [facility] [address] [place] [address] [id number] CHERELLE FLOREZ Self - patient is the insured Medical (General) History Medical History History ICD Code esophageal reflux, EGD 05/16, no [place]' s esophagus or H. pylori. Headaches Allergic rhinitis Insomnia Fibromyalgia Osteoarthritis Diabetes mellitus type 2 Surgical History Surgery Date(Month/Year) tonsillectomy tubal ligation
--- OUTSIDE RECORDS SUMMARY | 2025-01-06 09:23 | XMS_ITS ---
Author Organization [facility] Address [address] [facility] [address] [place] [phone] Care Team Providers Care Fire Dispatcher Name Role Phone Shantell Whitehead MD, Gerry Primary Care Provide r Itz Olivo Jr, Wesley Unavailable REASON FOR VISIT gerd,abn findings in stool Problems Problem Type SNOMED Code ICD Code Onset Dates Problem Status W/U Status Risk Notes Problem Gastroesophageal reflux disease (300660403) Chronic GERD (K21.9) Active confirmed Encounters Encounter Location Date Provider Diagnosis [facility] [address] [place] [id number] 02/12/2024 Wesley Olivo Jr Abnormal findings in stool R19.5 ; Colon polyps K63.5 and Chronic GERD K21.9 Assessments Encounter Date Diagnosis (ICD Code) Assessment Notes Treatment Notes Treatment Clinical Notes Section Notes 02/12/2024 Abnormal findings in stool (ICD-10 - R19.5) 02/12/2024 Colon polyps (ICD-10 - K63.5) 02/12/2024 Chronic GERD (ICD-10 - K21.9) Plan Of Treatment Next Appt Details Provider Name:Wesley ferrer Jr, 04/10/2025 10:40:00 AM, [address], [address], [place], [address], Progress Notes * CHERELLE FLOREZDOB: 6 (49 yo F)Acc No.[id number]:02/12/2024 EGD&COL/MAC Patient:?CHERELLE FLOREZ Provider:?Wesley Olivo MD :1975???Age:48 Y???Sex:Female D ate:02/12/2024 Address: [place], [place] Pcp:Gerry flores MD Subjective: * Chief Complaints: * ???1. Gerd,abn findings in s tool. * Medical History:? Objective: * Vitals:? Assessment: * Assessment: 1.?Abnormal findings in stoo l - R19.5 (Primary)???2.?Colon polyps - K63.5???3.?Chronic GERD - K21.9??? Plan: * Treatment: * Procedure Codes:?66854 LESIO N REMOVAL COLONOSCOPY, 65287 UPPER GI ENDOSCOPY, BIOPSY * * The named appointment provid er may or may not be the originator of this progress note, and it is not deemed complete until electronically signed by the appointment provider. Sign off status: Pending * Provider:?Wesley Olivo MD Date:?0 02/12/2024 Generated for Ada thompson/Tiff/eTransmitting on:?01/06/2025 09:23 AM EST
--- OUTSIDE RECORDS SUMMARY | 2025-01-06 09:23 | XMS_ITS ---
Author Organization [facility] Address [address] [facility] [address] [place] [phone] Care Team Providers Care Brand Director Name Role Phone Shantell Whitehead MD, Gerry Primary Care Provide linda Olivo Jr, Wesley Unavailable REASON FOR VISIT bowel prep Medications Medication SIG (Take, Route, Frequency, Duration) Notes Start Date End Date Status Dulcolax (colon prep) 5 MG take at 3:00 p.m and 7:00p.m. Orally two tablets twice a day for one day for 1 day 01/13/2024 Active MiraLax (colon prep) 8.3 ounce ((238) grams mixed with Gatorade or Crystal Light orally begin at 5:00 p.m. the day before the procedure for 1 day 01/13/2024 Active Encounters Encounter Location Date Provider Diagnosis [facility] [address] [place] [phone] 01/13/2024 Wesley Olivo Jr Plan Of Treatment Medication Medication Name Sig Start Date Stop Date Notes Dulcolax (colon prep) 5 MG take at 3:00 p.m and 7:00p.m. Orally two tablets twice a day for one day for 1 day 01/13/2024 MiraLax (colon prep) 8.3 oun ce ((238) grams mixed with Gatorade or Crystal Light orally begin at 5:00 p.m. the day before the procedure for 1 day 01/13/2024 Next Appt Details Provider Name:Wesley ferrer Jr, 04/10/2025 10:40:00 AM, [address] [place] [address], [address], [place], [address], Progress Notes * CHERELLE FLOREZDOB: [birth year] (48 yo F)Acc No.[id number]:01/13/2024 Patient:?CHERELLE FLOREZ :1975???Age:48 Y???Sex:Female Address:[address] [place] [address], [place] [address] * Refills? Start MiraLax (colon prep), 8.3 ounce ((238) grams, orally, 1 container, mixed with Gatorade or Crystal Light, begin at 5:00 p.m. the day before the procedure, 1 day, Refills=no refills Start Dulcolax (colon prep) Tablet Delayed Release, 5 MG, Orally, 4, take at 3:00 p.m and 7:00p.m., two tablets twice a day for one day, 1 day * true * Date:? Generated for Ada thompson/Tiff/Himanshuitting on:?01/06/2025 09:23 AM EST
--- OUTSIDE RECORDS SUMMARY | 2025-01-06 09:24 | XMS_ITS ---
Author Organization [facility] Address [address] [place] [phone] Care Team Providers Care Acid Leveler Name Role Phone Shantell Whitehead MD, Gerry Primary Care Provide r Itz Olivo Jr, Wesley Unavailable [phone] REASON FOR VISIT results of colonoscopy Medications Medication SIG (Take, Route, Fr equency, Duration) Notes Start Date End Date Status metroNIDAZOLE 500 MG 1 tablet Orally Thr ee times a day for 14 days 02/24/2024 Active Omeprazole 20 MG 1 Orally Twice a day for 14 days 02/24/2024 Active Clarithromycin 500 MG 1 tablet Orally Tw ice a day for 14 days 02/24/2024 Active Problems Problem Type SNOMED Code ICD Code Onset Dates Problem Status W/U Status Risk Notes Problem [id number] H. pylori infection (A04.8) Active confirmed Encounters Encounter Location Date Provider Diagnosis [facility] [address] [place] [phone] 02/24/2024 Wesley Olivo Jr H. pylori infection A04.8 Assessments Encounter Date Diagnosis (ICD Code) Assessment Notes Treatment Notes Treatment Clinical Notes Section Notes 02/24/2024 H. pylori infection (ICD-10 - A04.8) Plan Of Treatment Medication Medication Name Sig Start Date Stop Date Notes metroNIDAZOLE 500 MG 1 tablet Orally Thr ee times a day for 14 days 02/24/2024 Omeprazole 20 MG 1 Orally Twice a day for 14 days 02/24/20 Clarithromycin 500 MG 1 tablet Orally Tw ice a day for 14 days 02/24/2024 Pending Test Test Name Order Date H PYLORI AG, STOOL 02/24/2024 Next Appt Details Provider Name:Wesley ferrer Jr, 04/10/2025 10:40:00 AM, [address] [place] [address], [address], [place], [address], Progress Notes * CHERELLE FLOREZDOB: [birth year] (48 yo F)Acc No.[id number]:02/24/2024 Patient:?CHERELLE FLOREZ :1975???Age:48 Y???Sex:Female Address:[address] [place] [address] [place], [address] * Refills? Start Omeprazole Capsule Delayed Release, 20 MG, Orally, 28, 1, Twice a day, 14 days, Refills=0 Start Clarithromycin Tablet, 500 MG, Orally, 28 Tablet, 1 tablet, Twice a day, 14 days, Refills=0 Start metroNIDAZOLE Tablet, 500 MG, Orally, 42 Tablet, 1 tablet, Three times a day, 14 days, Refills=0 Subjective: * Chief Complaints: * ???Results of colonoscopy * Medical History:? * Surgical History:? * Hospitalization/Major Diagno stic Procedure:? * Medications:? Objective: Assessment: * Assessment: 1.?H. pylori infection - A04 .8 (Primary)? Plan: * Treatment: 2.?Others? Start Omeprazole Capsule Delayed Release, 20 MG, 1, Orally, Twice a day, 14 days, 28, Refills 0; Start Clarithromycin Tablet, 500 MG, 1 tablet, Orally, Twice a day, 14 days, 28 Tablet, Refills 0;?Start metroNIDAZOLE Tablet, 500 MG, 1 tablet, Orally, Three times a day, 14 days, 42 Tablet, Refills 0.?? * Procedure Codes:? * true * Date:? Generated for Ada thompson/Tiff/eTelenasmitting on:?01/06/2025 09:23 AM EST
--- NOTE | 2025-01-06 16:32 | PM.PROC ---
Brief Operative Note Date of procedure: 01/06/25 Pre-op diagnosis: Fibromyalgia Post-op diagnosis: same Procedure: Date: 01/06/2025 Study Type: Limited Ultrasound with Guidance of needle placement Indication: Polyarthralgias Study Site: Left hand and limited left wrist Equipment: Surveypal US Brief History: Patient with known mild generalized osteoarthritis and fibromyalgia complained of bilateral hand pain with elevated inflammatory markers. Relevant meds: ?Not currently on prednisone or any other NSAIDs Relevant labs: Laboratory Tests 07/13/23 10/20/24 10:50 10:19 ESR 16 21 H C-Reactive Protein 0.65 H 1.20 H Cycl Citrul Peptide IgG <16 ARIANA Screen NEGATIVE XR Images reviewed: Findings: ?Orthogonal views of the dorsal and palmar aspect of the left 2nd MCP and PIP. were obtained in grayscale and Doppler. No gross abnormality noted to the tendons, bones or joints. No evidence of synovial hypertrophy and Doppler readings were also negative. No erosions noted Impressions: ? No evidence of inflammatory arthritis
== END 2025-01-06 08:49 | disposition home or self-care (01) ==
LOC: HO.US 08:48
PROVIDERS: PCP Internal Medicine; Visit Provider Student in an Organized Health Care Education/Training Program
DX: M79.641 Pain in right hand (principal); M79.642 Pain in left hand
CPT/HCPCS: 76882

== ENCOUNTER → 2025-01-06 08:48 | Outpatient (BNV) | payer MEDICAID, SELFPAY | PROVIDERS: PCP Internal Medicine; Visit Provider Student in an Organized Health Care Education/Training Program | DX: M19.032 Primary osteoarthritis, left wrist (principal); M19.042 Primary osteoarthritis, left hand; M79.7 Fibromyalgia | CPT/HCPCS: 76942 ==

== ENCOUNTER 2025-01-12 11:37 | Emergency (ER) | payer MEDICAID, SELFPAY ==
--- NOTE | ~2025-01-12 | XR_ITS ---
EXAMINATION: XR CHEST 2 VIEWS HISTORY: CP COMPARISON: Comparison is made with the prior examination dated 09/12/2024. FINDINGS: PA and lateral views of the chest are submitted. The lungs are expanded and clear. There is no pleural effusion, pneumothorax, or pulmonary vascular congestion. The heart is normal in size. The bones are intact. XR/XR chest 2V IMPRESSION: No acute cardiopulmonary abnormality. Electronically signed by: Edwin Ronquillo MD 01/12/2025 12:45 PM EDT
--- NOTE | 2025-01-12 11:39 | ECG_ITS ---
Test Reason : CHEST PAIN Blood Pressure : */* mmHG Vent. Rate : 63 BPM Atrial Rate : 63 BPM P-R Int : 130 ms QRS Dur : 78 ms QT Int : 424 ms P-R-T Axes : 55 34 56 degrees QTcB Int : 433 ms Normal sinus rhythm Low voltage QRS Nonspecific T wave abnormality Abnormal ECG When compared with ECG of 12-Sep-2024 15:38, No significant change was found Referred By: Kriss Askew Electronically Signed By: TEETEE BROWN
[2025-01-12 11:51] VITALS: BP 139/75; PULSE 61; RESP 16; TEMP 36.6; O2SAT 100; BMI 33.9
[2025-01-12 12:19] LABS: MANUAL DIFF FLAG NO
[2025-01-12 12:21] LABS: Basophils Percent Auto 0.3 % (0-2); Eosinophils Absolute Auto 0.1 X10*3/uL (0.0-0.4); Eosinophils Percent Auto 1.5 % (0-4); Hematocrit 38.5 % (37.0-47.0); Hemoglobin 12.9 g/dl (12.0-16.0); Imm Gran Abs Auto 0.03 X10*3/uL (0.00-0.03); Imm Gran Pct Auto 0.5 % (0.0-0.4); Lymphocytes Absolute Auto 2.1 X10*3/uL (1.2-4.9); Lymphocytes Percent Auto 32.6 % (20-40); Mean Corpuscular HGB Conc 33.5 g/dl (31.0-35.0); Mean Corpuscular Hemoglobin 29.5 pg (27.0-33.0); Mean Corpuscular Volume 88.1 fL (80.0-98.0); Mean Platelet Volume 10.1 fL (9.4-12.3); Monocytes Absolute Auto 0.3 X10*3/uL (0.1-1.2); Monocytes Percent Auto 5.1 % (2-11); Neutrophils Absolute Auto 3.9 x10*3/uL (2.0-8.3); Platelet Count 298 X10*3/uL (160-400); Red Blood Count 4.37 X10*6/uL (4.20-5.50); Red Cell Distribution Width 13.2 % (11.0-16.0); White Blood Count 6.5 X10*3/uL (4.8-10.8)
--- NOTE | 2025-01-12 12:21 | ED_ITS ---
HPI - Chest Pain General Chief Complaint: Chest Pain Stated Complaint: Chest pain Time Seen by Provider: 01/12/25 15:28 Source: patient Mode of arrival: ambulatory Limitations: no limitations History of Present Illness ED Provider: DR. Wilkins HPI narrative: 49-year-old female came in for evaluation of mid chest pain for the past 4 days,Pain is substernal has been constant for the last 4 days, pain has been waxing and waning, worse with taking a deep breath or touching her chest, pain is localized to the mid chest with no radiation, associated sometimes with dizziness, palpitation. No chest injury, no recent travel, no lower extremity swelling or tenderness. No fever, chills , no coughing. Related Data Home Medications ?Medication ?Instructions ?Recorded ?Confirmed cetirizine 10 mg tablet 1 tab PO DAILY 01/09/21 06/09/24 topiramate 50 mg tablet 1 tab PO DAILY headache 01/09/21 06/09/24 acetaminophen 650 mg 650 mg PO Q8H PRN mild pain 04/30/23 06/09/24 tablet,extended release buspirone 30 mg tablet 30 mg PO BID 04/30/23 06/09/24 [id number]-obpjynxjlvpbq-ivvmxwzv 1 - 2 tab PO Q6-8H PRN Migraine 04/30/23 06/09/24 50 mg-325 mg-40 mg tablet Headache citalopram 10 mg tablet 20 mg PO DAILY 04/30/23 06/09/24 clonazepam 1 mg tablet 1.5 mg PO BEDTIME 04/30/23 06/09/24 diphenhydramine HCl 25 mg capsule 50 mg PO Q4-6H PRN Anxiety 04/30/23 06/09/24 (Banophen) ferrous gluconate 324 mg (38 mg 324 mg PO QAM 04/30/23 06/09/24 iron) tablet fluticasone propionate 50 2 spray intranasal DAILY 04/30/23 06/09/24 mcg/actuation nasal spray,suspension ketoconazole 2 % shampoo 1 appl topical 2XW 04/30/23 06/09/24 lidocaine 5 % topical patch 1 patch transdermal Q3D PRN pain 04/30/23 06/09/24 lisinopril 10 mg tablet 10 mg PO DAILY 04/30/23 06/09/24 sodium chloride 0.65 % nasal spray 1 - 2 spray intranasal Q2-3H PRN 04/30/23 06/09/24 aerosol (Saline Nasal) congestion clindamycin phosphate 1 % topical 1 appl topical DAILY 06/24/23 06/09/24 solution tacrolimus 0.1 % topical ointment 1 appl topical DIRECTED 06/24/23 06/09/24 venlafaxine 150 mg 150 mg PO QAM 06/24/23 06/09/24 capsule,extended release 24 hr dicyclomine 20 mg tablet 20 mg PO .COMPLEX 07/13/23 06/09/24 hydrocortisone 2.5 % topical 1 appl topical BID 08/18/23 06/09/24 ointment omeprazole 20 mg capsule,delayed 20 mg PO QAM 08/18/23 06/09/24 release cyclobenzaprine 5 mg tablet 5 mg PO TID 06/14/24 Previous Rx's ?Medication ?Instructions ?Recorded gabapentin 100 mg capsule 200 mg (2 x 100 mg) PO TID #180 03/14/24 caps ondansetron HCl 4 mg tablet 4 mg PO Q6H PRN nausea and 04/09/24 vomiting #10 tabs tramadol 50 mg tablet 50 mg PO Q6H PRN pain #20 tabs 05/03/24 Allergies Allergy/AdvReac Type Severity Reaction Status Date / Time penicillin G [PENICILLIN G] Allergy Severe ANAPHYLAXIS Verified 01/12/25 11:52 shrimp Allergy Severe Anaphylaxis Verified 01/12/25 11:52 Penicillins [PCN] Allergy Unknown Verified 01/12/25 11:52 Review of Systems 2 Review of Systems: All other systems are reviewed and are negative Constitutional: Reports as per HPI and Reports no additional constitutional complaints Eyes: Reports as per HPI and Reports no additional eye complaints Reports system reviewed and no additional complaints, except as documented Cardiovascular: Reports as per HPI and Reports no additional cardiovascular complaints Respiratory: Reports as per HPI and Reports no additional respiratory complaints Gastrointestinal: Reports as per HPI and Reports no additional gastrointestinal complaints Genitourinary: Reports no additional female genitourinary complaints Musculoskeletal: Reports no additional musculoskeletal complaints Skin/Breast: Reports system reviewed and no additional complaints, except as docu Psychiatric: Reports no additional psychiatric complaints Endocrine: Reports no additional endocrine complaints Hematologic/Lymphatic: Reports no additional hematologic/lymphatic complaints Allergic/Immunologic: Reports no additional allergic/immunologic complaints Reports system reviewed and no additional complaints, except as documented and Reports Abnormal speech present PMFSH Past Medical History Medical History Epidermal cyst Pes cavus of both feet Allergies Headache GERD (gastroesophageal reflux disease) Surgical History History of removal of cyst (~06/27/24) History of shoulder surgery History of tubal ligation Hx of tonsillectomy Family History Family History Mother Arthritis Father Diabetes Social History Social History Household Members: Significant Other Are you a primary day care home mother to a significant other at home: No Do you presently have visiting nurse or other home services: No Alcohol intake: former Patient Tobacco Use Status: Former Tobacco user Use of substances other than those prescribed or required for medical reasons: No Advance Directives: No Advance Directives Information Provided: Yes Patient : No Current occupational status: employed and unemployed Physical Exam 2 Vital Signs: Vital Signs: Last Vital Signs Temp 97.6 F 01/12/25 18:37 Pulse 56 01/12/25 18:56 Resp 11 L 01/12/25 18:56 BP 126/73 01/12/25 18:56 Pulse Ox 98 01/12/25 18:56 O2 Del Method Room Air 01/12/25 18:56 BMI result Body Mass Index 33.9 Vital signs have been reviewed and appear to be correct. Blood pressure elevated. Heart rate normal. Respiratory rate normal. Temperature normal. Oxygen saturation normal. Appearance: Alert. Oriented X3. No acute distress. Head: Normal external exam. Normocephalic. Atraumatic. No Helms signs noted. No raccoon eyes noted Eyes: PERRLA. EOMI. Conjunctiva and sclera normal. Eyelids normal. ENT: TM's Normal. Pharynx normal. Uvula midline. Moist mucous membranes. No trismus noted. No drooling noted. No muffled voice noted. Neck: Normal inspection. Neck supple. FROM. No adenopathy. Thyroid Normal. No meningeal signs. No neck mass noted. CVS: Normal heart rate and rhythm. Heart sound normal. No murmurs noted. Pulses normal throughout. Respiratory: No respiratory distress. Painless inspiration. Breath sounds normal. No wheezes/rales/rhonchi noted. Chest nontender. No accessory muscle usage noted or decreased air movement noted. Abdomen: Soft and nontender. Bowel sounds normal in all 4 quadrants. No distention noted. No organomegaly noted. No visible injury noted. Back: No CVA tenderness. Full range of motion noted. Skin: Skin warm and dry. Normal skin color. Normal skin turgor. No rashes/lesions/lacerations noted. Extremities: No lower extremity edema. Extremities exhibit normal range of motion. Extremities nontender. Neuro: Oriented X 3. Cranial nerve exam: II-XII are grossly intact No motor deficit. No sensory deficit. Reflexes normal. Course Course Course Narrative: This is an RME: Additional HPI, ROS, PE not included below will be deferred to primary provider. RME assessment and note performed by: Kriss Askew PA-C This is a [id number]-female, with a past medical history of fibromyalgia, GERD osteoarthritis, who presents emergency department with complaints of constant midsternal chest pain that waxes and wanes in severity. Pain has been present for the last 4 days. Endorsing palpitations, shortness for breath and dizziness. She has a cardiology appointment in March. Patient well-appearing under no acute distress. Vital signs within normal limits. Will obtain EKG, chest x-ray, labs, chest x-ray, further ER evaluation needed. Reevaluation(s) Reevaluation #1: 49-year-old female history of HTN, dm came in with 4 days of constant mid chest pain, negative trop x2, no risk for pulmonary embolism with negative D- dimer. otherwise unremarkable chest pain workup in the ED. Pain increased with taking a deep breath, pleurisy is favorable diagnosis with patient NSAIDs. Time: 17:00 Medications Administered Discontinued Medications Generic Name Dose Route Start Last Admin Trade Name Freq PRN Reason Stop Dose Admin Ibuprofen 400 mg 01/12/25 15:44 01/12/25 16:00 Ibuprofen 400 Mg Tablet PO 01/12/25 15:45 400 mg ONCE ONE Administration Medical Decision Making Differential Diagnosis Differential Diagnoses: The differential diagnosis associated with the presentation includes ( ACS, pulmonary embolism, chest wall pain, pneumonia, pneumothorax, pleural effusion, electrolyte derangement, severe anemia) Admission/Observation Consideration of admission/observation: Escalation of care including admission/observation considered Lab Data MDM Lab Attestation statement: I reviewed the patient's lab results. 01/12/25 12:10 01/12/25 12:10 Labs: Lab Results 01/12/25 01/12/25 01/12/25 Range/Units 12:10 15:45 18:41 WBC 6.5 (4.8-10.8) X10*3/uL RBC 4.37 (4.20-5.50) X10*6/uL Hgb 12.9 (12.0-16.0) g/dl Hct 38.5 (37.0-47.0) % MCV 88.1 (80.0-98.0) fL MCH 29.5 (27.0-33.0) pg MCHC 33.5 (31.0-35.0) g/dl RDW 13.2 (11.0-16.0) % Plt Count 298 (160-400) X10*3/uL MPV 10.1 (9.4-12.3) fL Immature Gran % (Auto) 0.5 H (0.0-0.4) % Neut % (Auto) 60.0 (45-73) % Lymph % (Auto) 32.6 (20-40) % [place] % (Auto) 5.1 (2-11) % Eos % (Auto) 1.5 (0-4) % Baso % (Auto) 0.3 (0-2) % Lymph # (Auto) 2.1 (1.2-4.9) X10*3/uL [place] # (Auto) 0.3 (0.1-1.2) X10*3/uL Eos # (Auto) 0.1 (0.0-0.4) X10*3/uL Baso # (Auto) 0.0 (0.0-0.2) X10*3/uL Abs Immat Gran (auto) 0.03 (0.00-0.03) X10*3/uL Absolute Neuts (auto) 3.9 (2.0-8.3) x10*3/uL Absolute Nucleated RBC 0.000 (0.0-0.012) X10*3/uL Nucleated RBC % (auto) 0.0 (0.0-0.2) /100WBC D-Dimer High Sensitivty 165 NG/ML Sodium 140 (135-145) mmol/L Potassium 3.9 (3.3-5.1) mmol/L Chloride 107 (96-108) mmol/L Carbon Dioxide 27 (22-29) mmol/L Anion Gap 10 L (12-20) BUN 16 (9-16) mg/dL Creatinine 0.82 (0.5-1.4) mg/dL Estim Creat Clear Calc 94.3 Estimated GFR > 60 Random Glucose 188 H (60-115) mg/dL Calcium 9.0 (8.4-10.2) mg/dL Magnesium 1.8 (1.6-2.6) mg/dL Total Bilirubin 0.4 (0.0-1.0) mg/dL Direct Bilirubin 0.2 (0.0-0.5) mg/dL AST 25 (5-31) U/L ALT 27 (0-31) U/L Alkaline Phosphatase 75 (39-117) U/L Troponin I High Sens < 2.7 < 2.7 (<3.5-17.0) ng/L Total Protein 7.4 (6.5-8.0) g/dL Albumin 3.9 (3.5-5.0) g/dL TSH 1.24 (0.32-4.0) uIU/mL Urine Color Dark Yellow Urine Appearance Clear Urine pH 5.5 (5.0-9.0) Ur Specific [place] >= 1.030 H (1.005-1.025) Urine Protein Negative (Neg-Trace) mg/dL Urine Glucose (UA) 250 H (Negative) mg/dL Urine Ketones Trace (Negative) mg/dL Urine Blood Trace H (Negative) Urine Nitrite Negative (Negative) Ur Leukocyte Esterase Negative (Negative) Urine RBC >20 H (0-2) /HPF Urine WBC 0-5 (0-5) /HPF Ur Squamous Epith Cells 3-5 (0-2) /HPF Urine Bacteria Trace (None Seen) Hyaline Casts 0-2 (0-2) /LPF Influenza Type A (PCR) NEGATIVE (Negative) Influenza Type B (PCR) NEGATIVE (Negative) RSV RNA Qual (PCR) NEGATIVE (Negative) SARS-CoV-2 RNA (RT-PCR) NEGATIVE (Negative) Independent Interpretation I performed an independent interpretation of an: Plain X-Ray ( chest: No acute intrathoracic pathology.) Radiology Impression Discussion of test interpretation with radiology: I have reviewed the radiologist's reading. Discharge Plan Discharge Clinical Impression: Chest pain, Pleurisy Patient Disposition: Home, Self-Care Instructions: Pleurisy (ED) Additional Instructions: Take ibuprofen 200 mg tablet ( [id number] ) every 8 hours if needed for pain. Prescriptions: No Action cetirizine 10 mg tablet 1 tab PO DAILY topiramate 50 mg tablet 1 tab PO DAILY tramadol 50 mg tablet 50 mg PO Q6H PRN (Reason: pain) Qty: 20 0RF ondansetron HCl 4 mg tablet 4 mg PO Q6H PRN (Reason: nausea and vomiting) Qty: 10 0RF ketoconazole 2 % shampoo 1 appl topical 2XW buspirone 30 mg tablet 30 mg PO BID ferrous gluconate 324 mg (38 mg iron) tablet 324 mg PO QAM Saline Nasal 0.65 % aerosol,spray 1 - 2 spray intranasal Q2-3H PRN (Reason: congestion) lidocaine 5 % adhesive patch,medicated 1 patch transdermal Q3D PRN (Reason: pain) diphenhydramine HCl [Banophen] 25 mg capsule 50 mg PO Q4-6H PRN (Reason: Anxiety) zhkviqluqz-qvqgqwlrugpyx-oohj 50-325-40 mg tablet 1 - 2 tab PO Q6-8H PRN (Reason: Migraine Headache) acetaminophen 650 mg tablet extended release 650 mg PO Q8H PRN (Reason: mild pain) clonazepam 1 mg tablet 1.5 mg PO BEDTIME lisinopril 10 mg tablet 10 mg PO DAILY fluticasone propionate 50 mcg/actuation spray,suspension 2 spray intranasal DAILY citalopram 10 mg tablet 20 mg PO DAILY gabapentin 100 mg capsule 200 mg PO TID Qty: 180 2RF cyclobenzaprine 5 mg tablet 5 mg PO TID tacrolimus 0.1 % ointment 1 appl topical DIRECTED venlafaxine 150 mg capsule,extended release 24hr 150 mg PO QAM clindamycin phosphate 1 % solution 1 appl topical DAILY dicyclomine 20 mg tablet 20 mg PO .COMPLEX Rx Instructions: 20 mg orally before breakfast, lunch, and dinner; omeprazole 20 mg capsule,delayed release(DR/EC) 20 mg PO QAM hydrocortisone 2.5 % ointment 1 appl topical BID Referrals: Aubrie Trinidad MD [Primary Care Provider] - Print Language: Paraguayan
[2025-01-12 12:37] LABS: Alanine Aminotransferase 27 U/L (0-31); Albumin Level 3.9 g/dL (3.5-5.0); Alkaline Phosphatase 75 U/L (39-117); Anion Gap 10 (12-20); Aspartate Amino Transferase 25 U/L (5-31); Bilirubin Direct 0.2 mg/dL (0.0-0.5); Bilirubin Total 0.4 mg/dL (0.0-1.0); Blood Urea Nitrogen 16 mg/dL (9-16); Carbon Dioxide 27 mmol/L (22-29); Chloride 107 mmol/L (96-108); Creatinine Clr Calc Pharmacy 94.3; Estimated Glomerular Filt Rate > 60; Glucose Random 188 mg/dL (60-115); Magnesium 1.8 mg/dL (1.6-2.6); Potassium 3.9 mmol/L (3.3-5.1); Sodium 140 mmol/L (135-145); Total Protein 7.4 g/dL (6.5-8.0)
[2025-01-12 12:42] LABS: Troponin-I High Sensitivity < 2.7 ng/L (<3.5-17.0)
[2025-01-12 12:56] LABS: TSH reflex Free T4 1.24 uIU/mL (0.32-4.0)
[2025-01-12 13:01] LABS: Influenza A PCR NEGATIVE (Negative); Influenza B PCR NEGATIVE (Negative); Resp Syncy Virus RNA Qual PCR NEGATIVE (Negative); SARS COV2 PCR INHOUSE NEGATIVE (Negative)
[2025-01-12 15:03] VITALS: BP 135/66; PULSE 52; RESP 12; TEMP 36.6; O2SAT 100
[2025-01-12 15:59] LABS: D Dimer High Sensitivity 165 NG/ML
[2025-01-12] MEDS: Ibuprofen 400 MG TABLET PO (16:00)
[2025-01-12 16:12] VITALS: BP 116/66; PULSE 55; RESP 14; TEMP 36.5; O2SAT 100
[2025-01-12 16:16] LABS: Troponin-I High Sensitivity < 2.7 ng/L (<3.5-17.0)
--- OUTSIDE RECORDS SUMMARY | 2025-01-12 16:47 | XMS_ITS | Encounter Summary ---
Author Organization [facility] Address [address] [place] [address] Care Team Providers Care Legal Executive Name Role Phone Gerry Echavarria MD Primary Care Provide r Reason for Visit * Reason Onset Date Comments Nurse Triage 12/14/2023 Encounter Details Date Type Department Care Team ([facility] st Contact Info) Description 12/14/2023 Telephone [facility] [address] [place], [place] [phone] Gerry Echavarria MD [address] [place] [address] Nurse Triage Social History Tobacco Use Types Packs/Day Years Used Date Smoking Tobacco: Former Cigarettes 1.5 20 1 989 - 2008 Passive Smoke Exposure: Past Smokeless Tobacco: Never Alcohol Use Standard Drinks/Week Comments Not Currently 0 (1 standard drink = 0.6 oz pur e alcohol) Depression Answer Date Recorded Patient Health Questionnaire-9 Score 11 02/10/2023 Housing Stability Answer Date Recorded What is your housing situation today? I have bird chávez 08/18/[address] you li ve. Do you have problems with any of the following? None of the above 08/18/2023 Food Insecurity Answer Date Recorded Within the past 12 months, y ou worried that your food would run out before you got money to buy more: Never True 08/18/2023 Within the past 12 months,th e food you bought just didn't last and you didn't have enough money to get more: Never True Transportation Answer Date Recorded In the past 12 months, has l ack of transportation kept you from medical appts, meetings, work or from getting things needed for daily living? No 08/18/2023 Utilities Answer Date Recorded In the past 12 months, has t he electric, gas, oil or water company threatened to shut off services in your home? No 08/18/2023 Depression Answer Date Recorded Patient Health Questionnaire-2 Score 2 12/10/2023 Comments No Sex and Gender Information Value Date Recorded Sex Assigned at Female 09/01/2022 10:15 AM EDT Legal Sex Female 10:15 AM EDT Gender Identity Female 09/01/2022 10:15 AM EDT Sexual Orientation Straight 09/01/2022 10 :15 AM EDT documented as of this encounter Miscellaneous Notes * Telephone Encounter - Jeannine Allen RN - 12/14/2023 1:50 PM EST Call to Julia Bedoya, reports having tested positive for COVID-19 today 12/14/23. Per pt sx onset was on Thursday12/11/23. Per pt having H/A, chills, body aches and congestion. Pt has used OTCibuprofen. Pt denies any fever. Per pt no wheezing. Pt advised of disposition, no appts on teams for telehealth. Pt advised will send to team to review with a covering regarding possible Paxlovid rx or add telehealth this PM. Pt also given number to free telehealth service via [facility] [phone]. Pt to call them to see if able to obtain paxlovid. Protocol Used: COVID-19 - Diagnosed or Suspected (Adult) Protocol-Based Disposition: Discuss with PCP and Callback by Nurse within 1 Hour Video visit offer not recorded Positive Triage Question: * HIGH RISK patient (e.g., weak immune system, age > 64 years, obesity with BMI of 30 or higher,, chronic lung disease or other chronic medical condition) and COVID symptoms (e.g., cough,fever) (Exceptions: Already seen by doctor or CERTIFIED ALCOHOL AND DRUG COUNSELOR/PA and no new or worsening symptoms.) * All higher-acuity triage questions were negative Care Advice Discussed: * Reassurance and Education - Positive COVID-19 Lab Test and Mild Symptoms * Cough Medicines * Humidifier * Coughing Spells * Pain and Fever Medicines * Reasons To Call Back - Fever over 103 F (39.4 C) - Chest pain or difficulty breathing occurs - You become worse * Telephone Encounter - Evelio Guevara - 12/14/2023 1:10 PM EST Symptom: COVID-19 Suspected Outcome: Schedule an urgent appointment (within 1 hour) or talk to a nurse or provider soon Reason: Any trouble breathing through the mouth The caller accepted this outcome Please contact pt @ [phone] Icelandic Pt advices feels her chest a little tight. Came out positive for COVID on 12/14/2023 documented in this encounter Plan of Treatment Upcoming Encounters Date Type Department Care Team (Late st Contact Info) Description 04/18/2025 11:15 AM EDT Office Visit [facility] [address] [place] [address] Gerry Echavarria MD [address] [place] [address] documented as of this encounter Goals Goal Patient Goal Type Associated Problems Recent Progress Patient-Stated? Author Blood Pressure < 140/90 Blood Pressure Essential hypertension 127/78(2024 9:47 AM EDT) No Angel Emmanuel, Roney Note: BP at goal every other day; encouraged lifestyle changes to promote BP control Follow the DASH diet Diet Essential hypertension On track( 024 4:06 PM EDT) No Angel Emmanuel, Roney Note: Look for low-sodium products Increase physical activity Exercise Essential hypertension On track( 024 4:06 PM EDT) No Angel Emmanuel, Roney Note: inactive, advised some amount of cardio can help with heart health documented as of this encounter Visit Diagnoses Not on filedocumented in this encounter Additional Health Concerns Assessment Noted Time PHQ-9 Depression Total Score: 11 023 2:03 PM EDT documented as of this encounter Care Teams Legal Executive Relationship Specialty Start Date End Date Gerry Echavarria MD [address] [place] [address] PCP - General Internal Medicine 07/26/14 [employer] 01/08/24 [facility] 09/28/24 documented as of this encounter
--- OUTSIDE RECORDS SUMMARY | 2025-01-12 16:47 | XMS_ITS | Encounter Summary ---
Author Organization [employer] Address [address] [place] [address] Care Team Providers Care Sales Demonstrator Name Role Phone Gerry Echavarria MD Primary Care Provide r Reason for Visit * Reason Onset Date Comments Order 09/18/2023 Encounter Details Date Type Department Care Team ([facility] st Contact Info) Description 09/18/2023 Telephone [facility] MEDICINE [address] [place], [place] [phone] Gerry Echavarria MD [address] [place] [address] Order Social History Tobacco Use Types Packs/Day Years [...] is your housing situation today? I have birdgilda chávez 08/18/[address] you [...] Answer Date Recorded Patient Health Questionnaire-2 Score 3 02/10/2023 Comments No Sex and Gender Information Value Date Recorded Sex Assigned at Female 09/01/2022 10:15 AM EDT Legal Sex Female 10:15 AM EDT Gender Identity Female 09/01/2022 10:15 AM EDT Sexual Orientation Straight 09/01/2022 10 :15 AM EDT documented as of this encounter Miscellaneous Notes * Telephone Encounter - Darlene Perry RN - 09/22/2023 3:14 PM EST Tc from pt requesting a status on an order that was advised by provider on last visit on 09/03/2023for help in regards to pt not understanding very well a program and video instructions. Please contact pt at [phone] Lao Speaker TC placed with [employer] ID # [id number]. Pt answered the phone and hung up on associate faculty, called placed again and a message was left in Lao for her to contact the [facility]. I do not see anything in the office note will send message to PCP . Did you speak of anything with this pt regarding her message was not able to speak to her to clarify her question * Telephone Encounter - Evelio Guevara - 09/18/2023 8:52 AM EST Tc from pt requesting a status on an order that was advised by provider on last visit on 09/03/2023for help in regards to pt not understanding very well a program and video instructions. Please contact pt at [phone] Lao Speaker documented in this encounter Plan of Treatment Upcoming Encounters Date Type Department Care Team (Late st Contact Info) Description 04/18/2025 11:15 AM EDT Office Visit [facility] MED[facility]INE [address] [place] [address] Gerry Echavarria MD [address] [place] [address] documented as of this encounter Goals Goal Patient Goal Type Associated Problems Recent Progress Patient-Stated? Author Blood Pressure < 140/90 Blood Pressure Essential hypertension 127/78(2024 9:47 AM EDT) No Angel Emmanuel PharmD Note: BP at goal every other day; encouraged lifestyle changes to promote BP control Follow the DASH diet Diet Essential hypertension On track( 024 4:06 PM EDT) No Angel Emmanuel PharmD Note: Look for low-sodium products Increase physical activity Exercise Essential hypertension On track( 024 4:06 PM EDT) No Angel Emmanuel PharmD Note: inactive, advised some amount of cardio can help with heart health documented as of this encounter Visit Diagnoses Not on filedocumented in this encounter Additional Health Concerns Assessment Noted Time PHQ-9 Depression Total Score: 11 023 2:03 PM EDT documented as of this encounter Care Teams Sales Demonstrator Relationship Specialty Start Date End Date Gerry Echavarria MD [address] [place] [address] PCP - General Internal Medicine 07/26/14 [employer]on [employer] LoggerLiteracy Coach 01/08/24 [facility] 09/28/24 documented as of this encounter
--- OUTSIDE RECORDS SUMMARY | 2025-01-12 16:47 | XMS_ITS | Encounter Summary ---
Author Organization [employer] [facility] Address [address] [place] [address] 7 [place] [address] Care Team Providers Care Critical Care Cns Name Role Phone Gerry Echavarria MD Primary Care Provide r Reason for Visit * Reason Onset Date Comments triage 12/26/2022 Encounter Details Date Type Department Care Team ([facility] st Contact Info) Description 12/26/2022 Telephone [facility] [address] [place], [place] [phone] Gerry Echavarria MD [address] [place] [address] triage Social History Tobacco Use Types Packs/Day Years Used Date Smoking Tobacco: Never Smokeless Tobacco: Never Alcohol Use Standard Drinks/Week Comments Not Currently 0 (1 standard drink = 0.6 oz pur e alcohol) Comments Unknown Sex and Gender Information Value Date Recorded Sex Assigned at Female 09/01/2022 10:15 AM EDT Legal Sex Female 10:15 AM EDT Gender Identity Female 09/01/2022 10:15 AM EDT Sexual Orientation Straight 09/01/2022 10 :15 AM EDT COVID-19 Exposure Response Date Recorded In the last 10 days, have yo u been in contact with someone who was confirmed or suspected to have Coronavirus/COVID-19? Unable to assess 12/01/2022 3:00 PM EST documented as of this encounter Miscellaneous Notes * Telephone Encounter - Evelio Monroyrero - 12/26/2022 12:02 PM EST Symptoms: Dizziness, Earache, Headache Outcome: Schedule an urgent appointment (within 1 hour) or talk to a nurse or provider soon Reason: Severe pain now The caller accepted this outcome Please contact pt at [phone] documented in this encounter Plan of Treatment Upcoming Encounters Date Type Department Care Team (Late st Contact Info) Description 04/18/2025 11:15 AM EDT Office Visit [facility] [address] [facility] [place] [address] Gerry Echavarria MD [address] [facility] [place] [address] documented as of this encounter Goals Goal Patient Goal Type Associated Problems Recent Progress Patient-Stated? Author Blood Pressure < 140/90 Blood Pressure Essential hypertension 127/78(2024 9:47 AM EDT) No Angel Emmanuel, Roney Note: BP at goal every other day; encouraged lifestyle changes to promote BP control Follow the DASH diet Diet Essential hypertension On track( 024 4:06 PM EDT) No Angel Emmanuel, PharmMamta Note: Look for low-sodium products Increase physical activity Exercise Essential hypertension On track( 024 4:06 PM EDT) No Angel Emmanuel, PharmMamta Note: inactive, advised some amount of cardio can help with heart health documented as of this encounter Visit Diagnoses Not on filedocumented in this encounter Care Teams Critical Care Cns Relationship Specialty Start Date End Date Gerry Echavarria MD [address] [facility] [place] [address] PCP - General Internal Medicine 07/26/14 Theron New Pillow CleanerPit Manager 01/08/24 [facility] 09/28/24 documented as of this encounter
--- OUTSIDE RECORDS SUMMARY | 2025-01-12 16:47 | XMS_ITS | Encounter Summary ---
Author Organization [employer] Address [address] [facility] 7t [place] [address] Care Team Providers Care Auto Emissions Technician Name Role Phone Gerry Echavarria MD Primary Care Provide r Reason for Visit * Reason Comments Med Refill Encounter Details Date Type Department Care Team ([facility] st Contact Info) Description 09/20/2023 Refill [facility] 230 [place], [place] [phone] Mala Williamson, ANP 230 [place] [address] Diarrhea, unspecified type; Irritable bowel syndrome, unspecified type Social History Tobacco Use Types Packs/Day Years [...] AM EDT documented as of this encounter Plan of Treatment Upcoming Encounters Date Type Department Care Team (Late st Contact Info) Description 04/18/2025 11:15 AM EDT Office Visit [facility] [address] [place] [address] Gerry Echavarria MD [address] [place] [address] documented as of this encounter Goals Goal [...] documented as of this encounter Visit Diagnoses Diagnosis Diarrhea, unspecified type Irritable bowel syndrome, unspecified type documented in this encounter Additional Health Concerns Assessment Noted Time PHQ-9 Depression Total Score: 11 023 2:03 PM EDT documented as of this encounter Care Teams Auto Emissions Technician Relationship Specialty Start Date End Date Gerry Echavarria MD [address] [place] [id number] PCP - General Internal Medicine 07/26/14 Theron New Assembly MechanicFlower Grader 01/08/24 [facility] 09/28/24 documented as of this encounter
--- OUTSIDE RECORDS SUMMARY | 2025-01-12 16:47 | XMS_ITS | Encounter Summary ---
Author Organization [employer] [facility] Address [address] [place] [address] 7t [place] [address] Care Team Providers Care Licensing Director Name Role Phone Gerry Echavarria MD Primary Care Provide r Reason for Visit * Reason Comments Med Refill Encounter Details Date Type Department Care Team ([facility] st Contact Info) Description 12/14/[address] [facility] [address] [place], [place] [phone] Gerry Echavarria MD [address] [place], [place] [phone] Mixed anxiety and depressive disorder Social History Tobacco Use Types Packs/Day Years Used Date Smoking Tobacco: Former Cigarettes 1.5 20 1 989 - 2008 Passive Smoke Exposure: Past Smokeless Tobacco: Never Alcohol Use Standard Drinks/Week Comments Not Currently 0 (1 standard drink = 0.6 oz pur e alcohol) Depression Answer Date Recorded Patient Health Questionnaire-9 Score 11 11/01/2024 Patient Health Questionnaire-9 Score 11 11/01/2024 Last PHQ-9: Questionnaire Data Not on file 1 Housing Stability Answer Date Recorded What is your housing situation today? I have bird chávez 04/27/[address] you li ve. Do you have problems with any of the following? None of the above 04/27/2024 Food Insecurity Answer Date Recorded Within the past 12 months, y ou worried that your food would run out before you got money to buy more: Never True 04/27/2024 Within the past 12 months,th e food you bought just didn't last and you didn't have enough money to get more: Never True Transportation Answer Date Recorded In the past 12 months, has l ack of transportation kept you from medical appts, meetings, work or from getting things needed for daily living? No 04/27/2024 Utilities Answer Date Recorded In the past 12 months, has t he electric, gas, oil or water company threatened to shut off services in your home? No 04/27/2024 Depression Answer Date Recorded Patient Health Questionnaire-2 Score 4 11/01/2024 Internet Access Answer Date Recorded Internet Access Q1 Yes 07/04/2024 Internet Access Q2 Not on file 07/04/2024 Comments No Sex and Gender Information Value [...] Description 04/18/2025 11:15 AM EDT Office Visit [facility] [address] [place] [address] Gerry Echavarria MD 230 [place] [address] documented as of this encounter Goals Goal Patient Goal Type Associated Problems Recent Progress Patient-Stated? Author Blood Pressure < 140/90 Blood Pressure Essential hypertension 127/78(2024 9:47 AM EDT) No Angel Emmanuel, Roney Note: BP at goal every other day; encouraged lifestyle changes to promote BP control Follow the DASH diet Diet Essential hypertension On track( 4:06 PM EDT) No Angel Emmanuel, PharmMamta Note: Look for low-sodium products Increase physical activity Exercise Essential hypertension On track( 024 4:06 PM EDT) No Angel Emmanuel, Roney Note: inactive, advised some amount of cardio can help with heart health documented as of this encounter Visit Diagnoses Diagnosis Mixed anxiety and depressive disorder Dysthymic disorder documented in this encounter Additional Health Concerns Assessment Noted Time PHQ-9 Depression Total Score: 11 024 11:14 AM EST documented as of this encounter Care Teams Licensing Director Relationship Specialty Start Date End Date Gerry Echavarria MD [address] [place] [address] PCP - General Internal Medicine 07/26/14 Theron New Wood Treating InspectorWarehouse Coordinator 01/08/24 [facility] 09/28/24 documented as of this encounter
--- OUTSIDE RECORDS SUMMARY | 2025-01-12 16:47 | XMS_ITS | Encounter Summary ---
Author Organization [employer] [facility] Address [address] [place] [address] 7t [place] [address] Care Team Providers Care Resident Inspector Name Role Phone Gerry Echavarria MD Primary Care Provide r Reason for Visit * Reason Comments Med Refill Encounter Details Date Type Department Care Team ([facility] st Contact Info) Description 12/23/2024 Refill [facility] 230 [place], [place] [phone] Gerry Echavarria MD [address] [place], [place] [phone] Seasonal allergies Social History Tobacco Use Types Packs/Day Years [...] Description 04/18/2025 11:15 AM EDT Office Visit [facility] [address] [place] [address] Gerry Echavarria MD [address] [place] [address] documented as of this encounter Goals Goal [...] 024 4:06 PM EDT) No Angel Emmanuel, PharmD Note: inactive, advised some amount of cardio can help with heart health documented as of this encounter Visit Diagnoses Diagnosis Seasonal allergies Allergic rhinitis, cause unspecified documented in this encounter Additional Health Concerns Assessment Noted Time PHQ-9 Depression Total Score: 11 11/01/ 024 11:14 AM EST documented as of this encounter Care Teams Resident Inspector Relationship Specialty Start Date End Date Gerry Echavarria MD [address] [place] [id number] PCP - General Internal Medicine 07/26/14 Theron New Hazmat Truck DriverInventory Control Assistant 01/08/24 [facility] 09/28/24 documented as of this encounter
--- OUTSIDE RECORDS SUMMARY | 2025-01-12 16:47 | XMS_ITS | Encounter Summary ---
Author Organization [employer] Address [address] [facility] 7t [place] [address] Care Team Providers Care Electric Motor Analyst Name Role Phone Gerry Echavarria MD Primary Care Provide r Reason for Visit * Reason Comments Med Refill Encounter Details Date Type Department Care Team ([facility] st Contact Info) Description 08/18/2023 Refill [facility] 230 [place], [place] [phone] Wendie Sandoval, [facility] 230 [place] [address] Social History Tobacco Use Types Packs/Day Years [...] Description 04/18/2025 11:15 AM EDT Office Visit [facility] 230 [place] [address] Gerry Echavarria MD [address] [place] [address] documented as of this encounter Goals Goal [...] documented as of this encounter Care Teams Electric Motor Analyst Relationship Specialty Start Date End Date Gerry Echavarria MD [address] [place] [address] PCP - General Internal Medicine 07/26/14 Theron New Mission CommanderDeli Bakery Clerk 01/08/24 [facility] 09/28/24 documented as of this encounter
--- OUTSIDE RECORDS SUMMARY | 2025-01-12 16:47 | XMS_ITS | Encounter Summary ---
Author Organization [employer] Address [address] [facility] 7t [place] [address] Care Team Providers Care Aquatics Specialist Name Role Phone Gerry Echavarria MD Primary Care Provide r Reason for Visit * Reason Comments Med Refill Encounter Details Date Type Department Care Team ([facility] st Contact Info) Description 09/20/2023 Refill [facility] [address] [place], [place] [phone] Amalia Ta MD [address] [place] [address] Social History Tobacco Use Types Packs/Day Years [...] Description 04/18/2025 11:15 AM EDT Office Visit [facility] 230 [place] [address] Gerry Echavarria MD [address] [place] [address] documented as of this encounter Goals Goal [...] documented as of this encounter Care Teams Aquatics Specialist Relationship Specialty Start Date End Date Gerry Echavarria MD [address] [place] [address] PCP - General Internal Medicine 07/26/14 Theron New Supervisor Alum PlantPole Shaver 01/08/24 [facility] 09/28/24 documented as of this encounter
--- OUTSIDE RECORDS SUMMARY | 2025-01-12 16:47 | XMS_ITS | Clinical Summary ---
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 limits. patient advised to adhere to a low sodium diet, encouraged about medication compliance, counseled about weight loss. Assessment & Plan (03/06/2023 10:03 PM EDT): Pt not took BP meds this am and also recently on steroids -advised pt to check home BP daily and to be complaint w meds , if noticing home BP > 140/90 in mx occasions despite to be complaint w med to schedule a f up visit w PCP in 6 weeks Assessment & Plan (02/23/2023 3:18 PM EDT): - Reports taking lisinopril only on days were BP is elevated. ~3-4 times weekly. - BP is at goal of less than 140/90 per JNC8 guidelines Assessment & Plan (02/10/2023 1:06 PM EDT): Controlled On Lisinopril 10 mg po daily Most recent electrolytes, Bun and Creatinine done on: 04/2021 were within normal limits. will repeat patient advised to adhere to a low sodium diet, encouraged about medication compliance, counseled about weight loss. Type 2 diabetes mellitus without complication Assessment & Plan (01/10/2025 10:07 AM EDT): Pt is here for a routine follow up She is on a regimen of: Metformin XR 500 mg to 1 tab po daily. Stopped Trulicity due to low blood sugars Hgb A1c 01/10/2025: 6.7 Microalbumin 03/26/2021 was 1.7 Pt not on an YOUSUF inhibitor/ARB, w Foot check not done Reports compliance with Asa 81 mg po daily refered to our tank truck engine mechanic previous visit Plan: Continue current regimen Pt advised to: adhere to diabetic diet check your blood sugars regularly check your feet on a daily basis. f/u 3 months Assessment & Plan (11/01/2024 11:27 AM EST): Pt is here for a routine follow up She is on a regimen of: Metformin XR 500 mg to 1 tab po BID. Stopped Trulicity due to low blood sugars Hgb A1c 08/11/2024: 6.7 Pt experiencing episodes of Blood sugar as low as 56 Microalbumin 03/26/2021 was 1.7 Pt not on an YOUSUF inhibitor/ARB, w Foot check not done Reports compliance with Asa 81 mg po daily refered to our tank truck engine mechanic previous visit Plan: Decrease Metformin XR 500 mg 1 tab po daily Pt advised to: adhere to diabetic diet check your blood sugars regularly check your feet on a daily basis. f/u 3 months Assessment & Plan (08/11/2024 12:01 PM EDT): Pt is here for a routine follow up She is on a regimen of: Metformin XR 500 mg to 1 tab po BID (restarted). Stopped Trulicity due to low blood sugars Hgb A1c 08/11/2024: 6.7 Microalbumin 03/26/2021 was 1.7 Pt not on an YOUSUF inhibitor/ARB, w Foot check not done Reports compliance with Asa 81 mg po daily refered to our tank truck engine mechanic previous visit Plan: Continue current regimen Pt advised to: adhere to diabetic diet check your blood sugars regularly check your feet on a daily basis. f/u 3 months Assessment & Plan (04/12/2024 11:29 AM EDT): Pt is here for a routine follow up She is on a regimen of: Metformin XR 500 mg to 1 tab po BID (restarted). Stopped Trulicity due to low blood sugars Hgb A1c 04/12/2024: 6.6 Microalbumin 03/26/2021 was 1.7 Pt not on an YOUSUF inhibitor/ARB, w Foot check not done Reports compliance with Asa 81 mg po daily refered to our tank truck engine mechanic previous visit Plan: Continue current regimen Pt advised to: adhere to diabetic diet check your blood sugars regularly check your feet on a daily basis. f/u 3 months Assessment & Plan (02/16/2024 10:44 AM EDT): Pt is here for a routine follow up She is on a regimen of: Metformin XR 500 mg to 1 tab po BID (restarted). Stopped Trulicity due to low blood sugars Hgb A1c 12/10/2023: 6.8 Microalbumin 03/26/2021 was 1.7 Pt not on an YOUSUF inhibitor/ARB, w Foot check not done Reports compliance with Asa 81 mg po daily refered to our tank truck engine mechanic previous visit Plan: Continue current regimen Pt advised to: adhere to diabetic diet check your blood sugars regularly check your feet on a daily basis. f/u 3 months Assessment & Plan (12/10/2023 11:34 AM EST): Pt is here for a routine follow up She is on a regimen of: Metformin XR 500 mg to 1 tab po BID (restarted). Stopped Trulicity due to low blood sugars Hgb A1c 12/10/2023: 6.8 Microalbumin 03/26/2021 was 1.7 Pt not on an YOUSUF inhibitor/ARB, w Foot check not done Reports compliance with Asa 81 mg po daily refered to our tank truck engine mechanic previous visit Plan: Continue current regimen Pt advised to: adhere to diabetic diet check your blood sugars regularly check your feet on a daily basis. f/u 3 months Assessment & Plan (11/14/2023 4:28 PM EST): Currently with well controlled DM now that stopped GLP1 , pt resumed her metformin when stopped trulicity -ok to continue metformin BID -has apt w PCP 12/10/2023,may discuss option w PCP to decrease dose of metformin or stop and to start SGLT2 if no contraindications at low dose if there are no contraindications for positive effect on weight loss but will hold on changes for now Assessment & Plan (09/03/2023 10:35 AM EDT): Pt is here for a routine follow up She is on a regimen of: Trulicity 0.75 once a week and Metformin XR 500 mg to 1 tab po BID. Pt tells me she does not take the Metformin every day because of side effects ( GI ) Pt denies any hx of papillary thyroid cancer or pancreatitis Last Hgb A1c 09/03/2023 6.7 Microalbumin 03/26/2021 was 1.7 Pt not on an YOUSUF inhibitor/ARB, w Foot check not done Reports compliance with Asa 81 mg po daily refered to our tank truck engine mechanic previous visit Plan: DC Metformin due to GI side effects, Continue current regimen Pt advised to: adhere to diabetic diet check your blood sugars regularly check your feet on a daily basis. f/u 3 months Assessment & Plan (08/04/2023 1:18 PM EDT): Televisit She is supposed to be on a regimen of: Metformin XR 500 mg to 2 tabs po BID. Pt tells me she does not take the Metformin every day because of side effects ( GI ) Pt is wondering if she could try Trulicity instead Pt denies any hx of papillary thyroid cancer or pancreatitis Last Hgb A1c 04/21/2023 7.0 Microalbumin 03/26/2021 was 1.7 Pt not on an YOUSUF inhibitor/ARB, will repeat today Foot check not done Reports compliance with Asa 81 mg po daily On Metformin XR 500 mg 2 tab daily refered to our tank truck engine mechanic last visit Plan: Start Trulicity 0.75 mcg once a week. Decrease Metformin XR 500 mg to 1 tab po BID to see if that has less GI side effects Pt advised to: adhere to diabetic diet check your blood sugars regularly check your feet on a daily basis. f/u 1 month Assessment & Plan (04/21/2023 11:37 AM EDT): Patient is here for a follow up visit DM stable Did not bring glucometer Pt tells me she does not take the Metformin every day Hgb A1c 04/21/2023 7.0 Microalbumin 03/26/2021 was 1.7 Pt not on an YOUSUF inhibitor/ARB, will repeat today Foot check not done Reports compliance with Asa 81 mg po daily On Metformin XR 500 mg 2 tab daily refered to our tank truck engine mechanic last visit Plan: Continue Metformin XR 500mg to 2 tabs po BID, discussed with her the need to take it every day. Pt advised to: adhere to diabetic diet check your blood sugars regularly check your feet on a daily basis. f/u 6 months Assessment & Plan (02/10/2023 1:05 PM EDT): Patient is here for a follow up visit DM controlled BG average Hgb A1c 02/10/2023 Microalbumin 03/26/2021 was 1.7 Pt not on an YOUSUF inhibitor/ARB, will repeat today Foot check not done Reports compliance with Asa 81 mg po daily On Metformin XR 500 mg 2 tab daily refered to our tank truck engine mechanic last visit Plan Continue Metformin XR 500mg to 2 tabs po daily Pt advised to: adhere to diabetic diet check your blood sugars regularly check your feet on a daily basis. f/u 6 months Mixed anxiety and depressive disorder 10/10/2022 Assessment & Plan (01/10/2025 10:10 AM EDT): Pt is now under the care of a psychiatrist Dr Diaz at [facility] continue following with therapist Buspirone 10 mg TID Effexor XR 150 mg po daily Klonopin 1 mg qhs Assessment & Plan (02/10/2023 2:10 PM EDT): Pt's PHQ9 11 Pt is now under the care of a psychiatrist Dr Diaz at [facility] continue following with therapist Buspirone 10 mg TID Effexor XR 150 mg po daily Migraine 12/02/2018 Assessment & Plan (02/10/2023 1:10 PM EDT): Doing well on Topamax 50mg daily Evaluated in the past by Neurology, last seen [address] neg 2011. will use Fioricet , APAP or Sumatriptan prn for acute migraine attacks Gastroesophageal reflux disease 01/03/2014 Assessment & Plan (02/10/2023 1:12 PM EDT): See EGD results on Omeprazole 20 mg po BID Encounters Date Type Department Care Team Description 01/12/2025 Orders Only GENERIC EXTERNAL DATA DEPARTMENT Provider, Generic External Data 01/10/2025 10:00 AM EDT Office Visit [facility] [address] [place] [address] Gerry Echavarria MD Type 2 diabetes mellitus without complication, without long-term current use of insulin (CMS/HCC) (Primary Dx); Essential hypertension; Precordial pain; Obesity (BMI 30.0-34.9); Dietary counseling; Exercise counseling; Preventative health care; Breast cancer screening by mammogram; Mixed anxiety and depressive disorder 01/10/2025 Travel 01/09/2025 Refill [facility] [address] [place] [address] Gerry Echavarria MD Chronic migraine without aura without status migrainosus, not intractable 01/03/2025 Telephone [facility] [address] [place] [address] Gerry Echavarria MD [employer] [facility] 12/29/2024 Telephone [facility] [address] [place] [address] Gerry Echavarria MD Chart Prep 12/25/2024 Refill [facility] [address] [place] [address] Gerry Echavarria MD Chronic migraine without aura without status migrainosus, not intractable; Polyarthralgia 12/23/2024 Refill [facility] [address] [place] [address] Gerry Echavarria MD Seasonal allergies 12/22/2024 Refill [facility] [address] [place] [address] Gerry Echavarria MD Type 2 diabetes mellitus without complication, without long-term current use of insulin (CMS/HCC) 12/14/2024 Telephone [facility] [address] [place] [address] Shweta East RN Paperwork/Forms 12/14/2024 Refill [facility] [address] [place] [address] Gerry Echavarria MD Mixed anxiety and depressive disorder 11/23/2024 Telephone [facility] [address] [place] [address] Gerry Echavarria MD Med Refill 11/23/2024 Refill [facility] [address] [place] [address] Aubrie Trinidad MD Polyarthralgia 11/23/2024 Refill [facility] [address] [place] [address] Gerry Echavarria MD Polyarthralgia; Chronic migraine without aura without status migrainosus, not intractable; Type 2 diabetes mellitus without complication, without long-term current use of insulin ([facility]) 11/09/2024 Telephone [facility] [address] [place] [phone] Gerry Echavarria MD December11/08/2024 Telephone [facility] [address] [place] [phone] Gerry Echavarria MD Med Refill 11/07/[address] [address] Wai Calle MD Fibromyalgia 11/01/2024 11:00 AM EST Office Visit [facility] [address] [place] [phone] Gerry Echavarria MD Essential hypertension (Primary Dx); Type 2 diabetes mellitus without complication, without long-term current use of insulin ([facility]); Other fatigue; Precordial pain; Gastroesophageal reflux disease without esophagitis 11/01/2024 Travel 10/24/2024 Refill [facility] [address] [place] [address] Gerry Echavarria MD Polyarthralgia 10/19/2024 Telephone [facility] [address] [place] [phone] Gerry Echavarria MD Chart Prep from Last 3 Months Immunizations Name Administration Dates Next Due Hep A, Adult 11/19/2012,03/15/2012 Hep B, adult 01/03/2014,11/19/2012,03/15/2012 Influenza, Split (incl. ash fied surface antigen) 01/03/2014 Mumps 03/11/2001,12/09/2000 Pfizer Covid-19 Vaccine 12+ 04/28/2021, 1 Pfizer Covid-19 Vaccine 12+ jay jay-sucrose (Bailey Cap) 11/19/2021 TD (adult), 2 Lf tetanus tox oid, preservative free, adsorbed 03/25/2004 Tdap 04/30/2017 Family History Medical History Relation Name Comments Diabetes type II Father Hypertension Father Diabetes type II Mother Hypertension Mother Relation Name Status Comments Father Mother Social History Tobacco Use Types Packs/Day Years Used Date Smoking Tobacco: Former Cigarettes 1.5 20 1 989 - 2008 Passive Smoke Exposure: Past Smokeless Tobacco: Never Tobacco Cessation:Counseling Given: Not Answered Alcohol Use Standard Drinks/Week Comments Not Currently [...] Orientation Straight 09/01/2022 10 :15 AM EDT Last Filed Vital Signs Vital Sign Reading Time Taken Comments Blood Pressure 127/78 01/10/2025 9:47 AM EDT Pulse 62 01/10/2025 9:47 AM EDT Temperature 36.2 ??C (97.1 ??F) 01/10/2025 9:47 AM ED T Respiratory Rate 20 01/10/2025 9:47 AM EDT Oxygen Saturation 99% 01/10/2025 9:47 AM EDT Inhaled Oxygen Concentration - - Weight 95.1 kg (209 lb 9.6 oz) 01/10/2025 9:47 A M EDT Height 165.1 cm (5' 5 ) 01/10/2025 9:47 AM EDT Body Mass Index 34.88 01/10/2025 9:47 AM EDT Plan of Treatment Upcoming Encounters Date Type Department Care Team (Late st Contact Info) Description 04/18/2025 11:15 AM EDT Office Visit [facility] [address] [place] [address] Gerry Echavarria MD [address] [place] [address] Health Maintenance Due Date Last Done Comments CT Colonography 1976 FIT 1976 FOBT 1976 HIV Screening 1976 Sigmoidoscopy 1976 Family Planning (PISQ) 1991 Hepatitis C Screening 1994 COVID-19 Vaccine ( season) 2024 11/19/2021, 04/28/2021, 03/28/2021 Influenza Vaccine (#1) 2024 01/03/2014 SDOH Screening 04/27/2025 04/27/2024 Depression Monitoring (PHQ-9) 05/01/2025 11/01/2024, 11/01/2024 Alcohol/Substance Use Screening 11/01/2025 11/01/2024 Depression Screening 11/01/2025 11/01/2024, 11/01/20 Tobacco Screening 01/10/2026 01/10/2025 Zoster Vaccines (1 of 2) 2026 Cervical Cancer Screening 04/17/2026 HPV/Cotest 04/17/2026 04/17/2021 Pap Smear 04/17/2026 04/17/2021 Mammogram 06/09/2026 06/09/2024, 08/0 05/2023, 12/17/2021, Additional history exists FIT DNA/Cologuard 12/18/2026 12/18/2023 DTaP/Tdap/Td Vaccines (2 - Td or Tdap) 04/30/2027 04/30/2017, 03/25/2004 Lipid Panel 08/18/2029 08/18/2024, 08/0 12/2022, 05/21/2022, Additional history exists Colonoscopy 02/07/2034 02/08/2024 Colorectal Cancer Screening 02/07/2034 RSV Patients and Patients Aged 60 years or older (1 - 1-dose 75+ series) 2051 Hepatitis A Vaccines Aged Out 11/19/2012, 03/15/20 12 No longer eligible based on patient's age [...] patient's age to complete this topic Meningococcal Vaccine Aged Out No lawrence maximilian eligible based on patient's age to complete this topic Pneumococcal Vaccine: Pediatrics (0 to 5 Years) and At-Risk Patients (6 to 49) Years) Aged Out No longer eligible based on patient's age to complete this topic RSV under 20 months Aged Out No longe r eligible based on patient's age to complete this topic Rotavirus Vaccines Aged Out No longer eligible based on patient's age to complete this topic Goals Goal Patient Goal Type Associated Problems [...] of cardio can help with heart health Procedures Procedure Name Priority Date/Time Associated Diagnosis Comments HIGH SENSITIVITY TROPONIN I Routine 01/12/2025 3:45 PM EDT D DIMER HIGH SENSITIVITY Routine 01/12/2025 3:45 PM EDT TSH W/REFLEX TO FT4 Routine 01/12/2025 1 2:10 PM EDT HIGH SENSITIVITY TROPONIN I Routine 01/12/2025 12:10 PM EDT MAGNESIUM Routine 01/12/2025 12:10 PM EDT BASIC METABOLIC PANEL Routine 01/12/2025 12:10 PM EDT HEPATIC FUNCTION PANEL Routine 12:10 PM EDT CBC WITH AUTO DIFFERENTIAL Routine 01/12/2025 12:10 PM EDT SARS COV2/INFLUENZA A/B AND RSV RNA QL NAAT Routine 01/12/2025 12:10 PM EDT XR CHEST 2 VIEWS Routine 01/12/2025 11:5 6 AM EDT POCT GLYCATED HEMOGLOBIN, TOTAL Routine 01/10/2025 9:59 AM EDT Type 2 diabetes mellitus without complication, without long-term current use of insulin (CMS/HCC) POCT GLUCOSE Routine 01/10/2025 9:56 AM EDT Type 2 diabetes mellitus without complication, without long-term current use of insulin (CMS/HCC) POCT GLUCOSE Routine 11/01/2024 11:18 AM EST Type 2 diabetes mellitus without complication, without long-term current use of insulin (CMS/HCC) LIPID PANEL, STANDARD Routine 08/18/2024 11:31 AM EDT Obesity (BMI 30.0-34.9) BI MAMMOGRAM SCREENING TOMOSYNTHESIS BILATERAL Routine 06/09/2024 12:35 PM EDT HM COLONOSCOPY Routine 02/08/2024 LAB COLOGUARD?? COLON CANCER SCREEN Routine 12/18/2023 11:00 AM EST Screening for colorectal cancer HPV MRNA E6/E7 Routine 04/17/2021 10:22 AM EDT THINPREP PAP Routine 04/17/2021 10:22 AM EDT from Last 3 Months or Most Recently Relevant to Health Maintenance Results * D Dimer High Sensitivity (01/12/2025 3:45 PM EDT) D Dimer High Sensitivity 165 NG/ML [facility] Comment:D-DIMER HS REFERENCE RANGENote: Our assay reports D-Dimer Units (D- DU).The cut-off value for venous thromboembolic (VTE) disease is230 ng/mL. This value has a very high negative predictivevalue when the patient has a low to moderate clinicalprobability of VTE.The upper limit of normal is 243 ng/mL. 01/12/2025 3:45 PM EDT 01/12/2025 3:49 PM EDT Generic External Data Provider LAB BLOOD ORDERAB LES Final Result Performing Organization Address [facility] de Phone Number [facility] [address] [place] [phone] * High Sensitivity Troponin I (01/12/2025 3:45 PM EDT) Only the most recent of2 resultswithin the time period is included. [facility] TROPONIN I HIGH SENSITIVITY <2.7 <3.5 - 17.0 ng/L [facility] Comment:The Lina[place] high sens itivity Troponin-I results should beused in conjunction with other diagnostic information suchas ECG, clinical observations and information, and patientsymptoms to aid in the diagnosis of VA. 01/12/2025 3:45 PM EDT 01/12/2025 3:49 PM EDT Generic External Data Provider LAB BLOOD ORDERAB LES Final Result Performing Organization Address [facility] de Phone Number [facility] [address] [place] [phone] * TSH with Reflex to Free T4 (01/12/2025 12:10 PM EDT) Pathologist [facility] TSH reflex Free T4 1.24 0.32 - 4.0 uIU/mL [facility] 01/12/2025 12:1 0 PM EDT 01/12/2025 12:18 PM EDT Generic External Data Provider LAB BLOOD ORDERAB LES Final Result Performing Organization Address [facility] Co de Phone Number [facility] [address] [place] [phone] * SARS-CoV-2 RNA, Influenza A/B, and RSV RNA, Ql NAAT (01/12/2025 12:10 PM EDT) [facility] Influenza A PCR NEGATIVE Negative [facility] Influenza B PCR NEGATIVE Negative [facility] Resp Syncy Virus RNA Qual PCR NEGATIVE Negative [facility] SARS COV2 PCR NEGATIVE Negative [facility] Comment:All test results mus t be correlated with clinical findings.Negative results do not preclude SARS-CoV2, influenza Avirus, influenza B virus and/or RSV infectionand should not be used as the sole basis for treatment orother patient management decisions. Negative results must becombined with clinical observations, patient history, andepidemiological information.This test has not been evaluated for monitoring treatment ofinfection.This test has been authorized by the FDA under an EmergencyUse Authorization (EUA) for use by authorized laboratories.Testing performed on the [employer] GeneXpert utilizingreal-time RT-PCR.All SARS CoV2 and positive influenza A/B results arereported to [facility]. 01/12/2025 12:1 0 PM EDT 01/12/2025 12:18 PM EDT us Generic External Data Provider LAB MICROBIOLOGY - GENERAL ORDERABLES Final Result [facility] [address] [place] [phone] [phone] * (ABNORMAL) CBC auto differential (01/12/2025 12:10 PM EDT) [facility] White Blood Count 6.5 4.8 - 10.8 X10*3/uL [facility] Red Blood Count 4.37 4.20 - 5.50 X10*6/uL [facility] Hemoglobin 12.9 12.0 - 16.0 g/dl [facility] Hematocrit 38.5 37.0 - 47.0 % [facility] Mean Corpuscular Volume 88.1 80.0 - 98.0 fL [facility] Mean Corpuscular Hemoglobin 29.5 27.0 - 33.0 pg [facility] Mean Corpuscular HGB Conc 33.5 31.0 - 35.0 g/dl [facility] Red Cell Distribution Width 13.2 11.0 - 16.0 % [facility] Platelet Count 298 160 - 400 X10*3/uL [facility] Mean Platelet Volume 10.1 9.4 - 12.3 fL [facility] Neutrophils Percent Auto 60.0 45 - 73 % [facility] Imm Gran Pct Auto 0.5(H) 0.0 - 0.4 % [facility] Lymphocytes Percent Auto 32.6 20 - 40 % [facility] Monocytes Percent Auto 5.1 2 - 11 % [facility] Eosinophils Percent Auto 1.5 0 - 4 % [facility] Basophils Percent Auto 0.3 0 - 2 % [facility] NRBC Pct Auto 0.0 0.0 - 0.2 /100WBC [facility] Neutrophils Absolute Auto 3.9 2.0 - 8.3 x10*3/uL [facility] Imm Gran Abs Auto 0.03 0.00 - 0.03 X10*3/uL [facility] Lymphocytes Absolute Auto 2.1 1.2 - 4.9 X10*3/uL [facility] Monocytes Absolute Auto 0.3 0.1 - 1.2 X10*3/uL [facility] Eosinophils Absolute Auto 0.1 0.0 - 0.4 X10*3/uL [facility] Basophils Absolute Auto 0.0 0.0 - 0.2 X10*3/uL [facility] NRBC Abs Auto 0.000 0.0 - 0.012 X10*3/uL [facility] 01/12/2025 12:1 0 PM EDT 01/12/2025 12:18 PM EDT us Generic External Data Provider LAB BLOOD ORDERAB LES Final Result [facility] [address] [place] [phone] * Magnesium (01/12/2025 12:10 PM EDT) [facility] Magnesium 1.8 1.6 - 2.6 mg/dL [facility] 01/12/2025 12:1 0 PM EDT 01/12/2025 12:18 PM EDT Generic External Data Provider LAB BLOOD ORDERAB LES Final Result Performing Organization Address [facility] Co de Phone Number [facility] [address] [place] [phone] [phone] * Hepatic Function Panel (01/12/2025 12:10 PM EDT) [facility] Bilirubin, Total 0.4 0.0 - 1.0 mg/dL [facility] Bilirubin, Direct 0.2 0.0 - 0.5 mg/dL [facility] Aspartate Amino Transferase 25 5 - 31 U/L [facility] Alanine Aminotransferase 27 0 - 31 U/L [facility] Total Protein 7.4 6.5 - 8.0 g/dL [facility] Albumin Level 3.9 3.5 - 5.0 g/dL [facility] Alkaline Phosphatase 75 39 - 117 U/L [facility] 01/12/2025 12:1 0 PM EDT 01/12/2025 12:18 PM EDT Generic External Data Provider LAB BLOOD ORDERAB LES Final Result Performing Organization Address [facility] de Phone Number [facility] [address] [place] [phone] * (ABNORMAL) Basic Metabolic Panel (01/12/2025 12:10 PM EDT) [facility] Sodium 140 135 - 145 mmol/L [facility] Potassium 3.9 3.3 - 5.1 mmol/L [facility] Chloride 107 96 - 108 mmol/L [facility] Carbon Dioxide 27 22 - 29 mmol/L [facility] Anion Gap 10(L) 12 - 20 [facility] Urea Nitrogen (BUN) 16 9 - 16 mg/dL [facility] Creatinine, Serum 0.82 0.5 - 1.4 mg/dL [facility] Creatinine Clr Calc Pharmacy 94.3 [facility] Comment:Provided height and weight: 165.1 cm,92.5 kg.eGFR (calculated from the MDRD study equation) and eCrCl(calculated from the Cockcroft-Gault equation) are based ondifferent parameters and may not yield comparable results.If eCrCl result is absurd, please check patient'sheight/weight. Estimated Glomerular Filt Rate >60 [facility] Comment:Chronic Kidney Disea se: Estimated GFR < 60 mL/min/1.58v6Pdrjub Kidney Disease: Estimated GFR < 15 mL/min/1.73m2 Glucose 188(H) 60 - 115 mg/dL [facility] Calcium 9.0 8.4 - 10.2 mg/dL [facility] 01/12/2025 12:1 0 PM EDT 01/12/2025 12:18 PM EDT us Generic External Data Provider LAB BLOOD ORDERAB LES Final Result Performing Organization Address [facility]/State/[facility] Co de Phone Number [facility] [address] [place] [address] [phone] * XR Chest 2 Views (01/12/2025 11:56 AM EDT) Anatomical Region Laterality Modality Chest Radiographic Angy ging 01/12/2025 11:5 6 AM EDT Narrative 01/12/2025 12:47 PM EDT ? [facility] ?[address] ?[place] [address] ?XRay Report ? Signed ? Patient: Bethany Bedoya,Julia ?MR#: ?? [id number] ? : 1975 ?Acct:[id number] ? Age/Sex: 49 / F ?ADM Date: 03/13/25 ? Loc: HO.ED ? Attending Dr: ? Ordering Physician: Kriss Askew ?? Date of Service: 01/12/25 ?? Procedure(s): XR chest 2V ?? Accession Number(s): [id number] ? cc: Aubrie Trinidad MD; Kriss Askwe ? EXAMINATION: ??XR CHEST 2 VIEWS ? HISTORY: CP ? COMPARISON: Comparison is made with the prior examination dated ?? 09/12/2024. ? FINDINGS: ??PA and lateral views of the chest are submitted. The lungs ?? are expanded and clear. ??There is no pleural effusion, pneumothorax, or ?? pulmonary vascular congestion. ??The heart is normal in size. ??The bones ?? are intact. ? XR/XR chest 2V ?? IMPRESSION: ?? No acute cardiopulmonary abnormality. ? Electronically signed by: ??Edwin Ronquillo MD ??01/12/2025 12:45 PM EDT ?? RP ? Dictated By: ?Edwin Ronquillo MD ? Signed By: ?<Electronically signed by Edwin Ronquillo MD in OV> ?01/12/25 1245 ? DD/ 1156 ? TD/TT: 01/12/25 1239 ? Microbiology Analyst: ? Procedure Note Dontishter, Image - 01/12/2025 [place] [address] XRay Report Signed Patient: Julia SmithMR#: [id number] : 1975Acct:[id number] Age/Sex: 49 / FADM Date: 01/12/25 Loc: HO.ED Attending Dr: Ordering Physician: Kriss Askew Date of Service: 01/12/25 Procedure(s): XR chest 2V Accession Number(s): [id number] cc: Aubrie Trinidad MD; Kriss Askew EXAMINATION: XR CHEST 2 VIEWS HISTORY: CP COMPARISON: Comparison is made with the prior examination dated 09/12/2024. FINDINGS: PA and lateral views of the chest are submitted. The lungs are expanded and clear. There is no pleural effusion, pneumothorax, or pulmonary vascular congestion. The heart is normal in size. The bones are intact. XR/XR chest 2V IMPRESSION: No acute cardiopulmonary abnormality. Electronically signed by: Edwin Ronquillo MD 01/12/2025 12:45 PM EDT RP Dictated By: Edwin Ronquillo MD Signed By: <Electronically signed by Edwin Ronquillo MD in OV> 01/12/25 1245 DD/ 1156 TD/TT: 01/12/25 1239 Microbiology Analyst: [facility] External Provider IMG XR PROCEDURES Edited Result - Final * (ABNORMAL) POCT HGB A1C (01/10/2025 9:59 AM EDT) Hemoglobin A1C 6.7(A) 4.0 - 6.0 % QC Media Lot # [id number] Lot# Expiration Date ,026 Blood 01/10/2025 9:59 AM EDT Gerry Whitehead MD POINT OF CARE TEST EN TER/EDIT ORDERABLES Final Result * (ABNORMAL) POCT Glucose (01/10/2025 9:56 AM EDT) Only the most recent of2 resultswithin the time period is included. Pathologist [facility] [place] Glucose Blood, POC 228(A) 60 - 200 mg/dL QC Media Lot # [id number] Lot# Expiration Date [id number] Blood Capillary blood specimen / Unknown 01/10/2025 9:56 AM EDT Gerry Whitehead MD POINT OF CARE TEST EN TER/EDIT ORDERABLES Final Result * (ABNORMAL) Lipid Panel, Standard (08/18/2024 11:31 AM EDT) Triglycerides 107 <150 mg/dL [facility] Comment:Desirable Triglyceri de: less than 150 mg/dLBorderline High Triglyceride 150-199 mg/dLHigh Triglyceride: 200-499 mg/dLVery High Triglyceride: greater than or equal to 5OO mg/dL Cholesterol 208(H) <200 mg/dL [facility] Comment:Desirable Cholestero l: less than 200 mg/dLBorderline High Cholesterol: 200-239 mg/dLHigh Cholesterol: greater than 239 mg/dL LDL Cholesterol Calculated 115(H) <100 mg/dL [facility] Comment:Desirable LDL: less than 100 mg/dLNear Optimal/Above Optimal LDL: 110- 129 mg/dLBorderline High LDL: 130-159 mg/dLHigh LDL: 160-189 mg/dLVery High LDL: greater than or equal to 190 mg/dL HDL Cholesterol 72 >40 mg/dL [facility] Comment:Desirable HDL: great er than 40 mg/dL Note: This HDL assay may give artificially low results in patients with liver disease. Blood Venous blood specimen / Unknown 08/18/2024 11:31 AM EDT 08/18/2024 1:14 PM EDT Gerry Whitehead MD LAB BLOOD ORDERABLES Final Result [facility] [address] [place] [address] [phone] * BI Mammogram Screening Tomosynthesis Bilateral (06/09/2024 12:35 PM EDT) Anatomical Region Laterality Modality Breast Bilateral Mammography 06/09/2024 12:3 5 PM EDT Narrative 07/07/2024 11:45 AM EDT ? [facility] ? [address] ?[place] [address] ? Mammography Report ? Signed ? Patient: Bethany Bedoya,Julia ?MR#: ?? [id number] ? : 1975 ?Acct:[id number] ? Age/Sex: 49 / F ?ADM Date: 08/08/24 ? Loc: HO.MAMMO ? Attending Dr: Aubrie Trinidad MD ? Ordering Physician: Aubrie Trinidad MD ?Results: 1 ?? Negative ? Date of Service: 06/09/24 ?Follow Up: 1 Year From Orig ?? inal Mammogram ? Procedure(s): MM tomosynthesis screening BI ?? Accession Number(s): [id number] ? cc: Aubrie Trinidad MD ? EXAMINATION: ?? MM SCREENING DIGITAL BREAST TOMOSYNTHESIS, BILATERAL ? CLINICAL INFORMATION: ? Screening. Asymptomatic. ? COMPARISON: ?? Mammography: This study is compared with prior exams dating back to ? 2018. ? TECHNIQUE: ?? Digital breast tomosynthesis is performed in both the craniocaudal and ?? mediolateral oblique views along with computer-aided detection (CAD). ? Synthesized 2D images are generated from the tomosynthesis. ? FINDINGS: ?? There are scattered areas of fibroglandular density (ACR BI-RADS breast ?? composition Category b). ? There are no significant masses, abnormal calcifications, or other ?? abnormalities. ? MM/MM tomosynthesis screening BI ?? IMPRESSION: ?? No mammographic evidence of malignancy. ? ASSESSMENT: ? BI-RADS BI-RADS 1 - Negative ? RECOMMENDATION: ?? Routine annual mammography screening. ? 1 year F/U ? This examination should not preclude the clinical evaluation of a ?? suspicious palpable abnormality. ? This patient's information was entered into a reminder system with a ?? target due date for their next mammogram. ? Electronically signed by: ??Flower Nielsen MD ??07/07/2024 11:42 AM EDT RP ? Dictated By: ?Flower Nielsen MD ? Signed By: ?<Electronically signed by Flower Nielsen MD in OV> ? 07/07/24 1142 ? DD/ 1235 ? TD/TT: 06/09/24 1250 ? Microbiology Analyst: ? Procedure Note Donotuseinterpreter, Image - 07/07/2024 [facility] [address] [place], [place] [address] Mammography Report Signed Patient: Julia SmithMR#: [id number] : 1975Acct:[id number] Age/Sex: 49 / FADM Date: 06/09/24 Loc: HO.MAMMO Attending Dr: Aubrie Trinidad MD Ordering Physician: Aubrie Trinidad MDResults: 1 Negative Date of Service: 06/09/24Follow Up: 1 Year From Orig inal Mammogram Procedure(s): MM tomosynthesis screening BI Accession Number(s): [id number] cc: Aubrie Trinidad MD EXAMINATION: MM SCREENING DIGITAL BREAST TOMOSYNTHESIS, BILATERAL CLINICAL INFORMATION: Screening. Asymptomatic. COMPARISON: Mammography: This study is compared with prior exams dating back to 2019. TECHNIQUE: Digital breast tomosynthesis is performed in both the craniocaudal and mediolateral oblique views along with computer-aided detection (CAD). Synthesized 2D images are generated from the tomosynthesis. FINDINGS: There are scattered areas of fibroglandular density (ACR BI-RADS breast composition Category b). There are no significant masses, abnormal calcifications, or other abnormalities. MM/MM tomosynthesis screening BI IMPRESSION: No mammographic evidence of malignancy. ASSESSMENT: BI-RADS BI-RADS 1 - Negative RECOMMENDATION: Routine annual mammography screening. 1 year F/U This examination should not preclude the clinical evaluation of a suspicious palpable abnormality. This patient's information was entered into a reminder system with a target due date for their next mammogram. Electronically signed by: Flower Nielsen MD 07/07/2024 11:42 AM EDT RP Dictated By: Flower Nielsen MD Signed By: <Electronically signed by Flower Nielsen MD in OV> 07/07/24 1142 DD/ 1235 TD/TT: 06/09/24 1250 Microbiology Analyst: Aubrie Trinidad MD IMG BI PROCEDURES Edited Re sult - Final * Hm Colonoscopy (02/08/2024) Colonoscopy Normal Normal us Historical Provider HEALTH MAINTENANCE Final Result * (ABNORMAL) Cologuard?? colon cancer screening (12/18/2023 11:00 AM EST) Cologuard Result Positive( A) Negative 12/27/2023 11:00 AM EST true[x] Media (CLIA #:[id number]) Comment: POSITIVE TEST RESULT. A positive Cologuard result should be followed with a colonoscopy or visual examination of the colon. The normal value (reference range) for this assay is negative. TEST DESCRIPTION: Composite algorithmic analysis of stool DNA-biomarkers with hemoglobin immunoassay. ?? Quantitative values of individual biomarkers are not reportable and are not associated with individual biomarker result reference ranges. Cologuard is intended for colorectal cancer screening of adults of either sex, 45 years or older, who are at average-risk for colorectal cancer (CRC). Cologuard has been approved for use by the U.S. FDA. The performance of Cologuard was established in a cross sectional study of average-risk adults aged 50-84. Cologuard performance in patients ages 45 to 49 years was estimated by sub-group analysis of near-age groups. Colonoscopies performed for a positive result may find as the most clinically significant lesion: colorectal cancer [4.0%], advanced adenoma (including sessile serrated polyps greater than or equal to 1cm diameter) [20%] or non- advanced adenoma [31%]; or no colorectal neoplasia [45%]. These estimates are derived from a prospective cross-sectional screening study of 10,000 individuals at average risk for colorectal cancer who were screened with both Cologuard and colonoscopy. (Jesenia Perez al, N Engl J Med 2014;370(14):7390-1049.) Cologuard may produce a false negative or false positive result (no colorectal cancer or precancerous polyp present at colonoscopy follow up). A negative Cologuard test result does not guarantee the absence of CRC or advanced adenoma (pre-cancer). The current Cologuard screening interval is every 3 years. ([place] Cancer Society and U.S. Multi-Society Task Force). Cologuard performance data in a 10,000 patient pivotal study using colonoscopy as the reference method can be accessed at the following location: www.[employer].Retailigence/results. Additional description of the Cologuard test process, warnings and precautions can be found at www.[employer].Retailigence. Stool specimen (specimen) 12/18/2023 11:00 AM EST 12/19/2023 1:02 PM EST Gerry Whitehead MD LAB MOLECULAR DIAGNOS TICS ORDERABLES Final Result true[x] Media (CLIA #:[id number]) [place] [address], * THINPREP PAP (04/17/2021 10:22 AM EDT) Clinical Information: None given [facility] COMMENT SEE COMMENT [facility] Comment: EXPLANATORY NOTE: ? The Pap is a screening test for cervical cancer. It is ?? not a diagnostic test and is subject to false negative ?? and false positive results. It is most reliable when a ?? satisfactory sample, regularly obtained, is submitted ?? with relevant clinical findings and history, and when ?? the Pap result is evaluated along with historic and ?? current clinical information. ?? Cd Mixer Helper : SEE COMMENT [facility] Comment: GSG, CT(ASCP) CT screening location: [address] ??[address] Interpretation/R esult: Negative for intraepithelial lesion or malignancy. [facility] LMP: 03/21/2021 [facility] Prev. BX: NONE GIVEN [facility] Prev. PAP: NIL 03/2015 HPV - FO [facility] SOURCE: Cervix [facility] Statement Of Adequacy: SEE COMMENT [facility] Comment: Satisfactory for evaluation. Endocervical/transformation zone component present. 04/17/2021 10:2 2 AM EDT [facility] Lori [facility] PATHOLOGY ORDERABLES Final Result Performing Organization Address [facility] Co de Phone Number [facility] [address] * HPV mRNA E6/E7 (04/17/2021 10:22 AM EDT) HPV nRNA E6/E7 Not Detected Not Detected [facility] Comment: Methodology: Sales Force Developer-Mediated Amplification This assay detects E6/E7 viral messenger RNA (mRNA) from 14 high-risk HPV types (16,18,31,33,35,39,45,51,52,56,58,59,66,68). ? The analytical performance characteristics of this assay have been determined by [facility]. The modifications have not been cleared or approved by the FDA. This assay has been validated pursuant to the CLIA regulations and is used for clinical purposes. ?? For additional information, please refer to http://education.[employer].Retailigence/faq/PHU854l5 (This link if provided for information/ educational purposes only.) 04/17/2021 10:2 2 AM EDT Wendie Sandoval [facility] BLOOD ORDERABLES Judy l Result Performing Organization Address [facility] Co de Phone Number [facility] [address] from Last 3 Months or Most Recently Relevant to Health Maintenance Insurance [place] [address] C3 Care Teams Shellfish Weigher Relationship Specialty Start Date End Date Gerry Echavarria MD [address] [place] [phone] PCP - General Internal Medicine 07/26/[address] [address]Wirer [address] Light 01/08/24 [facility] 09/28/24
--- OUTSIDE RECORDS SUMMARY | 2025-01-12 16:47 | XMS_ITS | Encounter Summary ---
Author Organization [employer] Address [address] [facility] 7t [place] [address] Care Team Providers Care Wardrobe Supervisor Name Role Phone Gerry Echavarria MD Primary Care Provide r Reason for Visit * Reason Comments Med Refill Encounter Details Date Type Department Care Team ([facility] st Contact Info) Description 08/25/2023 Refill [facility] [address] [place], [place] [phone] Wendie Sandoval, [facility] [address] [place] [address] Social History Tobacco Use Types Packs/Day Years [...] Description 04/18/2025 11:15 AM EDT Office Visit [facility] [address] [place] [address] Gerry Echavarria MD [address] [place] [address] documented as of this encounter Goals Goal [...] documented as of this encounter Care Teams Wardrobe Supervisor Relationship Specialty Start Date End Date Gerry Echavarria MD [address] [place] [address] PCP - General Internal Medicine 07/26/14 Theron New Car SalesmanLife Care Planner 01/08/24 [facility] 09/28/24 documented as of this encounter
--- OUTSIDE RECORDS SUMMARY | 2025-01-12 16:47 | XMS_ITS | Encounter Summary ---
Author Organization [employer] Address [address] [place] [address] 7 [place] [address] Care Team Providers Care Physical Fitness Teacher Name Role Phone Gerry Echavarria MD Primary Care Provide r Reason for Visit * Reason Onset Date Comments Med Refill 11/23/2024 Encounter Details Date Type Department Care Team ([facility] st Contact Info) Description 11/23/2024 Telephone [facility] [address] [place], [place] [phone] Gerry Echavarria MD [address] [place] [address] Med Refill Social History Tobacco Use Types Packs/Day Years Used Date Smoking Tobacco: Former Cigarettes 1.5 20 1 - 2008 Passive Smoke Exposure: Past Smokeless [...] your housing situation today? I have bird saira 04/27/[address] you li [...] encounter Miscellaneous Notes * Telephone Encounter - Joslyn Vazquez LPN - 11/23/2024 11:05 AM EST Medication pended to PCP. * Telephone Encounter - Omayra Velasco - 11/23/2024 10:59 AM EST TC from pt requesting medication refill. Medications needing refill : FreeStyle lancets To be sent to: [facility]/pharmacy #[id number] documented in this encounter Plan of Treatment Upcoming Encounters Date Type Department Care Team (Late st Contact Info) Description 04/18/2025 11:15 AM EDT Office Visit [facility] [address] [place] [address] Gerry Echavarria MD [address] [place] [address] documented as of this encounter Goals Goal Patient Goal Type Associated Problems Recent Progress Patient-Stated? Author Blood Pressure < 140/90 Blood Pressure Essential hypertension 127/78(2024 9:47 AM EDT) No Angel Emmanuel, Roney Note: BP at goal every other day; encouraged lifestyle changes to promote BP control Follow the DASH diet Diet Essential hypertension On track( 4:06 PM EDT) No Angel Emmanuel, Roney Note: Look for low-sodium products Increase physical activity Exercise Essential hypertension On track( 4:06 PM EDT) No Angel Emmanuel, Roney Note: inactive, advised some amount of cardio can help with heart health documented as of this encounter Visit Diagnoses Not on filedocumented in this encounter Additional Health Concerns Assessment Noted Time PHQ-9 Depression Total Score: 11 11:14 AM EST documented as of this encounter Care Teams Physical Fitness Teacher Relationship Specialty Start Date End Date Gerry Echavarria MD [address] [place] [address] PCP - General Internal Medicine 07/26/14 Theron [place]/Maintenance SpecialistLens Fabricating Machine Tender 01/08/24 [facility] 09/28/24 documented as of this encounter
--- OUTSIDE RECORDS SUMMARY | 2025-01-12 16:47 | XMS_ITS | Encounter Summary ---
Author Organization [employer] Address [address] [facility] 7t [place] [address] Care Team Providers Care Switchboard Troubleshooter Name Role Phone Gerry Echavarria MD Primary Care Provide r Reason for Visit * Reason Comments Med Refill Encounter Details Date Type Department Care Team ([facility] st Contact Info) Description 09/20/2023 Refill [facility] [address] [place], [place] [phone] [facility] [address] [place] [address] Folliculitis Social History Tobacco Use Types Packs/Day Years [...] Description 04/18/2025 11:15 AM EDT Office Visit [facility] [address] [place] [address] Gerry Echavarria MD [address] [place] [address] documented as of this encounter Goals Goal [...] as of this encounter Visit Diagnoses Diagnosis Folliculitis Other specified disease of hair and hair follicles documented in this encounter Additional Health Concerns Assessment Noted Time PHQ-9 Depression Total Score: 11 023 2:03 PM EDT documented as of this encounter Care Teams Switchboard Troubleshooter Relationship Specialty Start Date End Date Gerry Echavarria MD [address] [place] [address] PCP - General Internal Medicine 07/26/14 Theron New Manufacturing Development EngineerRetail Banking Manager 01/08/24 [facility] 09/28/24 documented as of this encounter
--- OUTSIDE RECORDS SUMMARY | 2025-01-12 16:47 | XMS_ITS | Encounter Summary ---
Author Organization [employer] Address [address] [facility] [address]t [place] [address] Care Team Providers Care Benefits Consultant Name Role Phone Gerry Echavarria MD Primary Care Provide r Reason for Visit * Reason Comments Med Refill Encounter Details Date Type Department Care Team ([facility] st Contact Info) Description 09/22/[address] [facility] [address] [place], [place] [phone] Tracey Leyva MD [address] [place], [place] [phone] Social History Tobacco Use Types Packs/Day Years [...] 11:15 AM EDT Office Visit [facility] [address] [place] [address] Gerry Echavarria MD [address] [place] [address] documented as of this encounter Goals Goal [...] documented as of this encounter Care Teams Benefits Consultant Relationship Specialty Start Date End Date Gerry Echavarria MD [address] [place] [address] PCP - General Internal Medicine 07/26/14 Theron New Fireworks InspectorNurse Quality 01/08/24 [facility] 09/28/24 documented as of this encounter
--- OUTSIDE RECORDS SUMMARY | 2025-01-12 16:47 | XMS_ITS | Encounter Summary ---
Author Organization [employer] Address [address] [facility] 7t [place] [address] Care Team Providers Care Manager Corporate Responsibility Name Role Phone Gerry Echavarria MD Primary Care Provide r Reason for Visit * Reason Comments Med Refill Encounter Details Date Type Department Care Team ([facility] st Contact Info) Description 09/22/2023 Refill [facility] [address] [place], [place] [phone] Mala Williamson, ANP [address] [place] [address] Diarrhea, unspecified type; Irritable bowel syndrome, unspecified [...] Description 04/18/2025 11:15 AM EDT Office Visit [facility] [address] [place] [address] Gerry Echavarria MD [address] [place] [address] documented as of this encounter Goals Goal [...] documented as of this encounter Care Teams Manager Corporate Responsibility Relationship Specialty Start Date End Date Gerry Echavarria MD [address] [place] [address] PCP - General Internal Medicine 07/26/14 Theron New Shipping And ReceivingChef Head 01/08/24 [facility] 09/28/24 documented as of this encounter
--- OUTSIDE RECORDS SUMMARY | 2025-01-12 16:47 | XMS_ITS ---
Author Organization [facility] Address [address] [place] [phone] Care Team Providers Care Packing Machine Feeder Name Role Phone Shantell Whitehead MD, Gerry Primary Care Provide r Itz Olivo Jr, Wesley Unavailable REASON FOR VISIT results of colonoscopy Medications [...] Problem Status W/U Status Risk Notes Problem [id number] H. pylori infection (A04.8) Active confirmed Encounters Encounter Location Date Provider Diagnosis [facility] [address] [place] [phone] 02/24/2024 Wesley Olivo Jr H. pylori infection [...] Provider Name:Wesley ferrer Jr, 04/10/2025 10:40:00 AM, [address] [place] [address], [address], [place], [phone], Progress Notes * CHERELLE FLOREZDOB: [birth year] (48 yo F)Acc No.[id number]:02/24/2024 Patient:?CHERELLE FLOREZ :1975???Age:48 Y???Sex:Female Address:[address] [place] [address] [place], [address] * Refills? Start Omeprazole Capsule Delayed Release, [...] * true * Date:? Generated for Ada thompson/Tiff/eTransmitting on:?01/12/2025 04:47 PM EDT
--- OUTSIDE RECORDS SUMMARY | 2025-01-12 16:47 | XMS_ITS | Encounter Summary ---
Author Organization [employer] Address [address] [facility] 7t [place] [address] Care Team Providers Care Rehab Liaison Name Role Phone Gerry Echavarria MD Primary Care Provide r Reason for Visit * Reason Comments Med Refill Encounter Details Date Type Department Care Team ([facility] st Contact Info) Description 08/08/2023 Refill [facility] 230 [place], [place] [phone] Mala Williamson, ANP 230 [place] [address] Vertigo; Diarrhea, unspecified type; Irritable bowel syndrome, unspecified [...] housing situation today? I have bird chávez 08/08/[address] you li ve. Do you have problems with any of the following? None of the above 08/08/2023 Food Insecurity Answer Date Recorded Within the past 12 months, y ou worried that your food would run out before you got money to buy more: Never True 08/08/2023 Within the past 12 months,th e food you bought just didn't last and you didn't have enough money to get more: Never True 05/2023 Transportation Answer Date Recorded In the past 12 months, has l ack of transportation kept you from medical appts, meetings, work or from getting things needed for daily living? No 08/08/2023 Utilities Answer Date Recorded In the past 12 months, has t he electric, gas, oil or water company threatened to shut off services in your home? No 08/08/2023 Depression Answer Date Recorded Patient Health Questionnaire-2 [...] Description 04/18/2025 11:15 AM EDT Office Visit [facility] [address] [place], [place] [phone] Gerry Echavarria MD [address] [place], [place] [phone] documented as of this encounter Goals Goal [...] as of this encounter Visit Diagnoses Diagnosis Vertigo Dizziness and giddiness Diarrhea, unspecified type Irritable bowel syndrome, unspecified type documented in this encounter Additional Health Concerns Assessment Noted Time PHQ-9 Depression Total Score: 11 023 2:03 PM EDT documented as of this encounter Care Teams Rehab Liaison Relationship Specialty Start Date End Date Gerry Echavarria MD [address] [place] [address] PCP - General Internal Medicine 07/26/14 Theron New Retail BankerLathe Scalper Operator 01/08/24 [facility] 09/28/24 documented as of this encounter
--- OUTSIDE RECORDS SUMMARY | 2025-01-12 16:47 | XMS_ITS | Encounter Summary ---
Author Organization [employer] Address [address] [place] [address] 7t [place] [address] Care Team Providers Care Kindergarten Tutor Name Role Phone Gerry Echavarria MD Primary Care Provide r Reason for Visit * Reason Onset Date Comments Paperwork/Forms 12/14/2024 Encounter Details Date Type Department Care Team ([facility] Contact Info) Description 12/14/2024 Telephone [facility] MED[facility]INE 230 [place], [place] [phone] Shweta East, RN [address] [place], [place] [phone] Paperwork/Forms Social History Tobacco Use Types Packs/Day Years [...] encounter Miscellaneous Notes * Telephone Encounter - Shweta East RN - 12/23/2024 12:45 PM EST Faxed back signed form as below * Telephone Encounter - Shweta East RN - 12/14/2024 9:47 AM EST Received fax from [facility] requesting pt medlist and provider signature on referral form./ Attached med list and placed on PCP's desk. Pending signature. documented in this encounter Plan of Treatment Upcoming Encounters Date Type Department Care Team (Late st Contact Info) Description 04/18/2025 11:15 AM EDT Office Visit [facility] 230 [place], [place] [phone] Gerry Echavarria MD 230 [place] [address] documented as of this encounter Goals Goal Patient Goal Type Associated Problems Recent Progress Patient-Stated? Author Blood Pressure < 140/90 Blood Pressure Essential hypertension 127/78(2024 9:47 AM EDT) No Angel Emmanuel, Roney Note: BP at goal every other day; encouraged lifestyle changes to promote BP control Follow the DASH diet Diet Essential hypertension On track( 4:06 PM EDT) No Angel Emmanuel PharmD [...] documented as of this encounter Care Teams Kindergarten Tutor Relationship Specialty Start Date End Date Gerry Echavarria MD [address] [place] [phone] PCP - General Internal Medicine 07/26/14 Theron New Coal LoaderWhite Shoe Ragger 01/08/24 [facility] 09/28/24 documented as of this encounter
--- OUTSIDE RECORDS SUMMARY | 2025-01-12 16:47 | XMS_ITS ---
Author Organization [facility] Address [address] [facility] [address] [place] [phone] Care Team Providers Care Saw Edge Fuser Circular Name Role Phone Shantell Whitehead MD, Gerry Primary Care Provide linda Olivo Jr, Wesley Unavailable [phone] REASON FOR VISIT bowel prep Medications Medication [...] Active Encounters Encounter Location Date Provider Diagnosis [facility] [address] [place] [phone] 01/13/2024 Wesley Olivo Jr Plan Of Treatment [...] Name:Wesley ferrer Jr, 04/10/2025 10:40:00 AM, [address] [place] [address], [address], [place], [address], Progress Notes * CHERELLE FLOREZDOB: 6 (48 yo F)Acc No.[id number]:01/13/2024 Patient:?CHERELLE FLOREZ :1975???Age:48 Y???Sex:Female Address:[address] [place] [address], [place] [address] * Refills? Start MiraLax (colon prep), 8.3 [...] true * Date:? Generated for Ada thompson/Tiff/Himanshuitting on:?01/12/2025 04:47 PM EDT
--- OUTSIDE RECORDS SUMMARY | 2025-01-12 16:47 | XMS_ITS | Encounter Summary ---
Author Organization [employer] Address [address] [facility] 7t [place] [address] Care Team Providers Care Conference Center Coordinator Name Role Phone Gerry Echavarria MD Primary Care Provide r Reason for Visit * Reason Onset Date Comments Med Refill 10/11/2024 Encounter Details Date Type Department Care Team ([facility] st Contact Info) Description 10/11/2024 Telephone [facility] MEDICINE 230 [place], [place] [phone] Gerry Echavarria MD 230 [place] [address] Med Refill Social History Tobacco Use Types Packs/Day Years Used Date Smoking Tobacco: Former Cigarettes 1.5 20 1 2008 Passive Smoke Exposure: Past Smokeless Tobacco: [...] Recorded Patient Health Questionnaire-2 Score 2 12/10/2023 Internet Access Answer Date Recorded Internet Access [...] Telephone Encounter - Joslyn Vazquez LPN - 10/11/2024 10:43 AM EST Medication pended to PCP. * Telephone Encounter - Jason Stout - 10/11/2024 10:39 AM EST TC from pt requesting medication refill. Medications needing refill : lisinopril 10 MG tablet To be sent to: [facility]/pharmacy [address] [place] [address] ABDULAZIZ TALAVERA documented in this encounter Plan of Treatment Upcoming Encounters Date Type Department Care Team (Late st Contact Info) Description 04/18/2025 11:15 AM EDT Office Visit [facility] MEDICINE 230 [place] [address] Gerry Echavarria MD 230 [place] [address] documented as of this encounter Goals Goal Patient Goal Type Associated Problems Recent Progress Patient-Stated? Author Blood Pressure < 140/90 Blood Pressure Essential hypertension 127/78(2024 9:47 AM EDT) No Angel Emmanuel Roney Note: BP at goal every other [...] documented as of this encounter Care Teams Conference Center Coordinator Relationship Specialty Start Date End Date Gerry Echavarria MD [address] [place] [address] PCP - General Internal Medicine 07/26/14 Theron New Supervisor Fiber LockingJewelry Manager 01/08/24 [facility] 09/28/24 documented as of this encounter
--- OUTSIDE RECORDS SUMMARY | 2025-01-12 16:47 | XMS_ITS | Clinical Summary ---
Author Organization [address] [facility] Address [address] [place] [address] Phone Care Team Providers Care Cyber Security Systems Engineer Name Role Phone Gerry Lopez MD Primary [...] 1:15 PM EST Office Visit [facility] [place] [address] [phone] Juan Frey, DPM Primary osteoarthritis of both feet (Primary Dx); Disorder of ligament of foot, left; Synovitis and tenosynovitis of left ankle and foot 10/31/2024 12:45 PM EST - 10/31/2024 11:59 PM EST Hospital Encounter [facility] Non-Invasive Cardiology [address] [place] [phone] Major depressive disorder, recurrent, in full remission (CMS/HCC) Discharge Disposition: Home or Self Care from Last 3 Months Social History Tobacco [...] 1:00 PM EDT Office Visit [facility] [place] [address] [phone] Juan Frey, DPM [address] [address] Health Maintenance Due Date Last Done Comments [...] depressive disorder, recurrent, in full remission (CMS/HCC) ANNUAL BMP BLOOD TEST Routine 04/09/2024 FIT-DNA Routine 12/18/2023 LIPID PANEL Routine 06/03/2023 HEMOGLOBIN A1C Routine 05/21/2022 HPV Routine 04/17/2021 from Last 3 Months [...] mg/mL Informed Consent: ??Site: ??Foot ligament tendon us Juan Frey DPM IN CLINIC/BEDSIDE ORDERAB LES Final Result * ARIANA IFA with titer and pattern (11/10/2024 12:54 PM EST) [facility] ARIANA Negative Negative 11/11/2024 10:51 AM [facility] Blood Venous blood specimen / Unknown Venipuncture / Unknown 11/10/2024 12:54 PM EST 11/10/2024 4:04 PM EST us Albert Diaz MD LAB BLOOD ORDERABLES Final Re sult Performing Organization Address City/[facility]/ZIP Co de Phone Number [facility] [address] [place] [address], [place] [phone] * DNA antibody, double-stranded (11/10/2024 12:54 PM EST) [facility] Anti-DNA Double Stranded Antibody Negative Negative LAB CHEMISTRY METHOD 11/13/2024 11:12 AM [facility] ds DNA Ab 20 <=200 I Unit/mL LAB CHEMISTRY METHOD 11/13/2024 11:12 AM [facility] Blood Venous blood specimen / Unknown Venipuncture / Unknown 11/10/2024 12:54 PM EST 11/10/2024 4:04 PM EST us Albert Diaz MD LAB BLOOD ORDERABLES Final Re sult Performing Organization Address City/[facility]/ZIP Co de Phone Number [facility] [address] [place] [address], [place] [phone] * (ABNORMAL) Vitamin D 25 hydroxy (11/10/2024 12:54 PM EST) [facility] Vit D, 25-Hydroxy 14.3(L) 30.0 - 80.0 ng/mL LAB CHEMISTRY METHOD 11/10/2024 6:17 PM EST [facility] Blood Venous blood specimen / Unknown Venipuncture / Unknown 11/10/2024 12:54 PM EST 11/10/2024 4:04 PM EST us Albert Diaz MD LAB BLOOD ORDERABLES Final Re sult Performing Organization Address [facility] Co de Phone Number [facility] [address] [place] [address], [place] [phone] * (ABNORMAL) Sedimentation rate (11/10/2024 12:54 PM EST) [facility] Sed Rate 34(H) 0 - 20 mm/hr LAB HEMETOLOGY METHOD 11/10/2024 4:32 PM EST [facility] Blood Venous blood specimen / Unknown Venipuncture / Unknown 11/10/2024 12:54 PM EST 11/10/2024 4:03 PM EST us Albert Diaz MD LAB BLOOD ORDERABLES Final Re sult Performing Organization Address [facility] Co de Phone Number [facility] [address] [place] [address], [place] [phone] * C-reactive protein (11/10/2024 12:54 PM EST) [facility] C-Reactive Protein 0.48 <=0.50 mg/dL LAB CHEMISTRY METHOD 11/10/2024 6:10 PM EST [facility] Blood Venous blood specimen / Unknown Venipuncture / Unknown 11/10/2024 12:54 PM EST 11/10/2024 4:04 PM EST us Albert Diaz MD LAB BLOOD ORDERABLES Final Re sult Performing Organization Address [facility]/ZIP Co de Phone Number [facility] [address] [place] [address], [place] [phone] * Vitamin B1 (11/10/2024 12:54 PM EST) [facility] Vitamin B1 Whole Blood 58 38 - 122 ug/L 11/15/2024 9:[address] [facility] Comment: This test was developed and the performance characteristics determined by [facility]. It has not been cleared or approved by the FDA. The laboratory is regulated under CLIA as qualified to perform high-complexity testing. This test is used for patient testing purposes. It should not be regarded as investigational or for research. Test performed at [facility], [address] , [place], [place] ??[address] ? [phone] Katelynn Dotson MD, PhD - Analytical Statistician Blood Venous blood specimen / Unknown Venipuncture / Unknown 11/10/2024 12:54 PM EST 11/10/2024 4:04 PM EST us Albert Diaz MD LAB BLOOD ORDERABLES Final Re sult Performing Organization Address City/[facility]/ZIP Co de Phone Number [facility] [address] [place] [address] * Folate (11/10/2024 12:54 PM EST) Pathologist [facility] Folate 9.5 2.8 - 17.0 ng/ml LAB CHEMISTRY METHOD 11/10/2024 6:33 PM EST [facility] Blood Venous blood specimen / Unknown Venipuncture / Unknown 11/10/2024 12:54 PM EST 11/10/2024 4:04 PM EST us Albert Diaz MD LAB BLOOD ORDERABLES Final Re sult [facility] [address] [place] [address], * Vitamin B12 (11/10/2024 12:54 PM EST) Pathologist [facility] Vitamin B-12 401 250 - 900 pcg/mL LAB CHEMISTRY METHOD 11/10/2024 6:33 PM EST [facility] Blood Venous blood specimen / Unknown Venipuncture / Unknown 11/10/2024 12:54 PM EST 11/10/2024 4:04 PM EST Albert Diaz MD LAB BLOOD ORDERABLES Final Re sult [facility] ([facility] [address] [place] [address], [place] [phone] * ECG 12 lead (10/31/2024 12:37 PM EST) [facility] Ventricular Rate ECG 67 BPM GEMUSE Atrial Rate 67 BPM GEMUSE P-R Interval 128 ms GEMUSE QRS Duration 78 ms GEMUSE Q-T Interval 400 ms GEMUSE QTc 422 ms GEMUSE P Wave [place] 58 degrees GEMUSE R [place] 39 degrees GEMUSE T [place] 58 degrees GEMUSE ECG Interpretation Normal sinus rhythm Cannot rule out Anterior infarct , age undetermined Abnormal ECG When compared with ECG of 02-JUL-2022 13:30, QT has shortened Confirmed by BJORN MOORE ([id number]) on 10/31/2024 7:55:17 PM GEMUSE 10/31/2024 12:3 7 PM EST 10/31/2024 7:55 PM EST Albert Diaz MD ECG ORDERABLES Final Result GEMUSE * Annual BMP Blood Test (04/09/2024) [facility] Annual BMP Blood Test abstracted Historical Provider HEALTH MAINTENANCE Final Result * FIT-DNA (Cologuard) (12/18/2023) [facility] Colorectal Cancer Screening: FIT-DNA (Cologuard) no interpretation , abstracted Historical Provider HEALTH MAINTENANCE Final Result * Lipid panel (06/03/2023) [facility] Triglycerides 0 mg/dL Comment:no interpretation Cholesterol 0 mg/dL Comment:no interpretation HDL 0 mg/dL Comment:no interpretation LDL Cholesterol 0 mg/dL Comment:no interpretation Blood Venous blood specimen / Unknown Historical Provider LAB BLOOD ORDERABLES Judy l Result * Hemoglobin A1c (05/21/2022) Hemoglobin A1C 0.0 % Comment:no interpretation Blood Venous blood specimen / Unknown Historical Provider LAB BLOOD ORDERABLES Judy l Result * Cervical Cancer Screening: HPV (04/17/2021) Cervical Cancer Screening: HPV no interpretation , abstracted Historical Provider HEALTH MAINTENANCE Final Result from Last 3 Months or Most Recently Relevant to Health Maintenance Insurance MEDICAID - [place] Care Teams Cyber Security Systems Engineer Relationship Specialty Start Date End Date Gerry Lopez MD [address] [place] [address] [place] [phone] PCP - General 07/29/22
--- OUTSIDE RECORDS SUMMARY | 2025-01-12 16:47 | XMS_ITS | Encounter Summary ---
Author Organization [employer] Address [address] [place] [address] 7 [place] [address] Care Team Providers Care New Vehicle Sales Consultant Name Role Phone Gerry Echavarria MD Primary Care Provide r Reason for Visit * Reason Onset Date Comments Medication Question 12/22/2024 Encounter Details Date Type Department Care Team ([facility] st Contact Info) Description 12/22/2024 Refill [facility] [address] [place], [place] [phone] Gerry Echavarria MD [address] [place], [place] [phone] Type 2 diabetes mellitus without complication, without long-term current use of insulin ([facility]) Social History Tobacco Use Types Packs/Day Years [...] encounter Miscellaneous Notes * Telephone Encounter - Susie Muhammad RN - 12/22/2024 1:51 PM EST Telephone call to pt using [facility] licensed and certified midwife Janey #[id number]. Pt confirmed she lost her glucometer and is requesting new glucometer to be sent to [facility] on [facility]. Pended glucometer to PCP, advised to call [facility] before going to [facility]. Pt verbalized understanding, no further questions. * Telephone Encounter - Jason Stout - 12/22/2024 9:47 AM EST Tc from pt requesting a New glucose Monitor Due to Pt losing her Old one. IF any questions contact pt at [phone] documented in this encounter Plan of Treatment Upcoming Encounters Date Type Department Care Team ([facility] st Contact Info) Description 04/18/2025 11:15 AM EDT Office Visit [address] [address] Gerry Echavarria MD [address] [place] [address] documented as of this encounter Goals Goal [...] as of this encounter Visit Diagnoses Diagnosis Type 2 diabetes mellitus without complication, without long-term current use of insulin ([facility]) documented in this encounter Additional Health Concerns Assessment Noted Time PHQ-9 Depression Total Score: 11 024 11:14 AM EST documented as of this encounter Care Teams New Vehicle Sales Consultant Relationship Specialty Start Date End Date Gerry Echavarria MD [address] [place] [address] PCP - General Internal Medicine 07/26/14 Theron New Umbrella RepairerFiber Artist 01/08/24 [facility] 09/28/24 documented as of this encounter
--- OUTSIDE RECORDS SUMMARY | 2025-01-12 16:47 | XMS_ITS | Encounter Summary ---
Author Organization [employer] Address [address] [facility] 7t [place] [address] Care Team Providers Care Barley Steeper Name Role Phone Gerry Echavarria MD Primary Care Provide r Reason for Visit * Reason Comments Med Refill Encounter Details Date Type Department Care Team ([facility] st Contact Info) Description 08/18/2023 Refill [facility] MEDICINE 230 [place], [place] [phone] Krystina Haji MD 230 [place], [place] [phone] Mixed anxiety and depressive disorder; Chronic migraine without aura without status migrainosus, not intractable Social History Tobacco Use Types Packs/Day Years Used Date Smoking Tobacco: Former Cigarettes 1.5 20 1 9 - 2008 Passive Smoke Exposure: Past Smokeless [...] 11:15 AM EDT Office Visit [facility] MED[facility]INE [address] [place] [address] Gerry Echavarria MD [address] [place] [address] documented as of this encounter Goals Goal [...] PM EDT) No Angel Emmanuel, PharmD Note: Look for low-sodium products Increase physical activity Exercise Essential hypertension On track( 024 4:06 PM EDT) No Angel Emmanuel, Roney Note: inactive, advised some amount of cardio can help with heart health documented as of this encounter Visit Diagnoses Diagnosis Mixed anxiety and depressive disorder Dysthymic disorder Chronic migraine without aura without status migrainosus, not intractable documented in this encounter Additional Health Concerns Assessment Noted Time PHQ-9 Depression Total Score: 11 023 2:03 PM EDT documented as of this encounter Care Teams Barley Steeper Relationship Specialty Start Date End Date Gerry Echavarria MD [address] [place] [address] PCP - General Internal Medicine 07/26/14 Theron New Steel Floor Pan Placing SupervisorRubber Tire Curer 01/08/24 [facility] 09/28/24 documented as of this encounter
--- OUTSIDE RECORDS SUMMARY | 2025-01-12 16:47 | XMS_ITS | Encounter Summary ---
Author Organization [employer] [facility] Address [address] [place] [address] 7 [place] [address] Care Team Providers Care Chain Mortiser Operator Name Role Phone Gerry Echavarria MD Primary Care Provide r Reason for Visit * Reason Onset Date Comments Med Refill 12/30/2022 Encounter Details Date Type Department Care Team ([facility] st Contact Info) Description 12/30/2022 Telephone [facility] MEDICINE 230 [place], [place] [phone] Gerry Echavarria MD 230 [place] [address] Med Refill Social History Tobacco Use Types [...] was confirmed or suspected to have Coronavirus/COVID-19? No / Unsure 01/01/2023 1:37 AM EST documented as of this encounter Miscellaneous Notes * Telephone Encounter - Diana Domingo RN - 12/30/2022 1:16 PM EST Pt has no hx of being on meclizine in Biocycle or fitkit * Telephone Encounter - Evelio Guevara - 12/30/2022 1:02 PM EST Tc from pt requesting a Script for Meclazine that helps pt with her ongoing lightheadedness. Please contact pt at [phone] documented in this encounter Plan of Treatment Upcoming Encounters Date Type Department Care Team (Late st Contact Info) Description 04/18/2025 11:15 AM EDT Office Visit [facility] MEDICINE [address] [place] [address] Gerry Echavarria MD [address] [place] [address] documented as of this encounter Goals Goal [...] as of this encounter Visit Diagnoses Diagnosis Dizziness- Primary Dizziness and giddiness documented in this encounter Care Teams Chain Mortiser Operator Relationship Specialty Start Date End Date Gerry Echavarria MD [address] [place] [address] PCP - General Internal Medicine 07/26/14 Theron New Slot Service SpecialistChannel Marketing Specialist 01/08/24 [facility] 09/28/24 documented as of this encounter
--- OUTSIDE RECORDS SUMMARY | 2025-01-12 16:47 | XMS_ITS | Encounter Summary ---
Author Organization [employer] Address [address] [facility] 7t [place] [address] Care Team Providers Care Green Building Materials Distributor Name Role Phone Gerry Echavarria MD Primary Care Provide r Reason for Visit * Reason Comments Med Refill Encounter Details Date Type Department Care Team (Late st Contact Info) Description 11/13/2023 Refill [facility] MEDICINE [address] [place], [place] [phone] Krystina Haji MD 230 [place], [place] [phone] Chronic migraine without aura without status migrainosus, [...] Description 04/18/2025 11:15 AM EDT Office Visit [facility] MED[facility] 230 [place], [place] [phone] Gerry Echavarria MD [address] [place], [place] [phone] documented as of this encounter Goals Goal [...] as of this encounter Visit Diagnoses Diagnosis Chronic migraine without aura without status migrainosus, not intractable documented in this encounter Additional Health Concerns Assessment Noted Time PHQ-9 Depression Total Score: 11 023 2:03 PM EDT documented as of this encounter Care Teams Green Building Materials Distributor Relationship Specialty Start Date End Date Gerry Echavarria MD [address] [place] [address] PCP - General Internal Medicine 07/26/14 Theron New Crown BufferFur Drummer 01/08/24 [facility] 09/28/24 documented as of this encounter
--- OUTSIDE RECORDS SUMMARY | 2025-01-12 16:47 | XMS_ITS | Encounter Summary ---
Author Organization [employer] Address 75 [facility] 7t [place] [address] Care Team Providers Care Hardwood Sawyer Name Role Phone Gerry Echavarria MD Primary Care Provide r Reason for Visit * Reason Comments Med Refill Encounter Details Date Type Department Care Team ([facility] st Contact Info) Description 12/25/2024 Refill [facility] [address] [place] [address] [phone] Gerry Echavarria MD [address] [place], [place] [phone] Chronic migraine without aura without status migrainosus, not intractable; Polyarthralgia Social History Tobacco Use Types Packs/Day Years [...] Visit [facility] [address] [place] [address] Gerry Echavarria MD [address] [place] [address] documented as of this encounter Goals Goal Patient Goal Type Associated Problems Recent Progress Patient-Stated? Author Blood Pressure < 140/90 Blood Pressure Essential hypertension 127/78(2024 9:47 AM EDT) No Angel Emmanuel, PharmMamta Note: BP at goal every other day; [...] without aura without status migrainosus, not intractable Polyarthralgia Pain in joint, multiple sites documented in this encounter Additional Health Concerns Assessment Noted Time PHQ-9 Depression Total Score: 11 024 11:14 AM EST documented as of this encounter Care Teams Hardwood Sawyer Relationship Specialty Start Date End Date Gerry Echavarria MD [address] [place] [address] PCP - General Internal Medicine 07/26/14 Theron New Bulk Truck DriverStrapper 01/08/24 [facility] 09/28/24 documented as of this encounter
--- OUTSIDE RECORDS SUMMARY | 2025-01-12 16:47 | XMS_ITS | Encounter Summary ---
Author Organization [employer] Address 75 [facility] 7t [place] [address] Care Team Providers Care Rn Family Name Role Phone Gerry Echavarria MD Primary Care Provide r Reason for Visit * Reason Comments Med Refill Encounter Details Date Type Department Care Team ([facility] st Contact Info) Description 09/10/2023 Refill [facility] [address] [place], [place] [phone] Wendie Sandoval, [facility] [address] [place] [address] Social History Tobacco Use Types Packs/Day Years [...] Description 04/18/2025 11:15 AM EDT Office Visit [facility] [address] [place] [address] Gerry Echavarria MD 230 [place] [address] documented as of this encounter Goals Goal [...] documented as of this encounter Care Teams Rn Family Relationship Specialty Start Date End Date Gerry Echavarria MD [address] [place] [address] PCP - General Internal Medicine 07/26/14 Theron [place] MolderGeneral Doc 01/08/24 [facility] 09/28/24 documented as of this encounter
--- OUTSIDE RECORDS SUMMARY | 2025-01-12 16:47 | XMS_ITS | Encounter Summary ---
Author Organization [employer] Address 75 [facility] 7t [place] [address] Care Team Providers Care Lecturer In Computer Science Name Role Phone Gerry Echavarria MD Primary Care Provide r Reason for Visit * Reason Comments Med Refill Encounter Details Date Type Department Care Team ([facility] st Contact Info) Description 09/20/2023 Refill [facility] 230 [place], [place] [phone] Tracey Leyva MD 230 [place], [place] [phone] Social History Tobacco Use Types Packs/Day Years [...] Description 04/18/2025 11:15 AM EDT Office Visit [facility] 230 [place] [address] Gerry Echavarria MD [address] [place] [address] documented as of this encounter Goals Goal [...] documented as of this encounter Care Teams Lecturer In Computer Science Relationship Specialty Start Date End Date Gerry Echavarria MD [address] [place] [address] PCP - General Internal Medicine 07/26/14 Theron New Iron Launder OperatorReuse Technician 01/08/24 [facility] 09/28/24 documented as of this encounter
--- OUTSIDE RECORDS SUMMARY | 2025-01-12 16:47 | XMS_ITS | Encounter Summary ---
Author Organization [employer] Address [address] [facility] [address] 7t [place] [address] Care Team Providers Care Tear Down Worker Name Role Phone Gerry Echavarria MD Primary Care Provide r Reason for Visit * Reason Comments Med Refill Encounter Details Date Type Department Care Team ([facility] st Contact Info) Description 08/18/2023 Refill [facility] [address] [place] [address] Pb [place], [place] COVID-19 Social History Tobacco Use Types Packs/Day Years [...] Visit [facility] [address] [place], [place] [phone] Gerry Echavarria MD 230 [place] [address] documented as of this encounter Goals Goal [...] as of this encounter Visit Diagnoses Diagnosis COVID-19 documented in this encounter Additional Health Concerns Assessment Noted Time PHQ-9 Depression Total Score: 11 023 2:03 PM EDT documented as of this encounter Care Teams Tear Down Worker Relationship Specialty Start Date End Date Gerry Echavarria MD [address] [place] [address] PCP - General Internal Medicine 07/26/14 Theron New Shirt CleanerBoat Mechanic 01/08/24 [facility] 09/28/24 documented as of this encounter
--- OUTSIDE RECORDS SUMMARY | 2025-01-12 16:47 | XMS_ITS | Encounter Summary ---
Author Organization [employer] [facility] Address 75 [facility] 7t [place] [address] Care Team Providers Care Safekeeping Clerk Name Role Phone Gerry Echavarria MD Primary Care Provide r Reason for Visit * Reason Comments Med Refill Encounter Details Date Type Department Care Team ([facility] st Contact Info) Description 09/10/2023 Refill [facility] 230 [place], [place] [phone] Gerry Echavarria MD [address] [place], [place] [phone] Social History Tobacco Use Types Packs/Day Years [...] 11:15 AM EDT Office Visit [facility] 230 [place] [address] Gerry Echavarria MD [address] [place] [address] documented as of this encounter Goals Goal [...] documented as of this encounter Care Teams Safekeeping Clerk Relationship Specialty Start Date End Date Gerry Echavarria MD 230 [place] [address] PCP - General Internal Medicine 07/26/14 Theron [place]/Structure Inspection Team LeaderPrick Stitcher 01/08/24 [facility] 09/28/24 documented as of this encounter
--- OUTSIDE RECORDS SUMMARY | 2025-01-12 16:47 | XMS_ITS | Encounter Summary ---
Author Organization [employer] Address 75 [facility] 7t [place] [address] Care Team Providers Care Ornamental Iron Erector Name Role Phone Gerry Echavarria MD Primary Care Provide r Encounter Details Date Type Department Care Team ([facility] st Contact Info) Description 10/06/2024 Telephone [facility] [address] [place] [address] Gerry Echavarria MD [address] [place], [place] [phone] Social History Tobacco Use Types Packs/Day Years [...] encounter Miscellaneous Notes * Telephone Encounter - Jason Stout - 10/06/2024 3:22 PM EST Resul documented in this encounter Plan of Treatment Upcoming Encounters Date Type Department Care Team (Late st Contact Info) Description 04/18/2025 11:15 AM EDT Office Visit [facility] [address] [place] [address] Gerry Echavarria MD [address] [place] [address] documented as of this encounter Goals Goal [...] documented as of this encounter Care Teams Ornamental Iron Erector Relationship Specialty Start Date End Date Gerry Echavarria MD [address] [place] [id number] PCP - General Internal Medicine 07/26/14 Theron New Crater And PackerMaintenance Manager 01/08/24 [facility] 09/28/24 documented as of this encounter
--- OUTSIDE RECORDS SUMMARY | 2025-01-12 16:47 | XMS_ITS | Encounter Summary ---
Author Organization [employer] Address 75 [facility] 7t [place] [address] Care Team Providers Care Re Etcher Name Role Phone Gerry Echavarria MD Primary Care Provide r Reason for Visit * Reason Comments Med Refill Encounter Details Date Type Department Care Team ([facility] st Contact Info) Description 08/08/2023 Refill [facility] [address] [place] [address] Name, MD Wai 230 [place] [address] Mixed anxiety and depressive disorder Social History [...] Description 04/18/2025 11:15 AM EDT Office Visit [facility] [address] [place] [address] Gerry Echavarria MD [address] [place] [address] documented as of this encounter Goals Goal [...] documented as of this encounter Care Teams Re Etcher Relationship Specialty Start Date End Date Gerry Echavarria MD [address] [place] [address] PCP - General Internal Medicine 07/26/14 Theron New Supervisor Paste PlantWindow Glass Cutter Off 01/08/24 [facility] 09/28/24 documented as of this encounter
--- OUTSIDE RECORDS SUMMARY | 2025-01-12 16:48 | XMS_ITS | Encounter Summary ---
Author Organization [employer] [facility] Address [address] [place] [address] 7 [place] [address] Care Team Providers Care Realty Specialist Name Role Phone Gerry Echavarria MD Primary Care Provide r Reason for Referral * Imaging (Routine) - Closed Specialty Diagnoses / Procedures Referred By Contac t Referred To Contact Radiology Diagnoses Breast cancer screening by mammogram Procedures BI Mammogram Screening Tomosynthesis Bilateral Gerry Echavarria MD [address] [place] [address] Phone: tel: fax: [address] Phone: tel: fax: Referral ID Status Reason Start Date Expiration Date Visits Re quested Visits Authorized [id number] Closed 01/10/2025 01/10/2026 1 1 Reason for Visit * Reason Comments Diabetes Follow-up Pt had expressed karol t she feels like she may have slept wrong due to having slight discomfort on her upper chest, didn't report sharp pain but that when she touches a specific area its uncomfortable and it also affected her left arm mobility Encounter Details Date Type Department Care Team (Late st Contact Info) Description 01/10/2025 10:00 AM EDT Office Visit [facility] [address] [place], [place] [phone] Gerry Echavarria MD [address] [place] [address] Type 2 diabetes mellitus without complication, without long-term current use of insulin (CMS/HCC) (Primary Dx); Essential hypertension; Precordial pain; Obesity (BMI 30.0-34.9); Dietary counseling; Exercise counseling; Preventative health care; Breast cancer screening by mammogram; Mixed anxiety and depressive disorder Social History [...] t he electric, gas, oil or water [employer] threatened to shut off services in your [...] AM EDT documented as of this encounter Last Filed Vital Signs Vital Sign Reading [...] Mass Index 34.88 01/10/2025 9:47 AM EDT documented in this encounter Progress Notes * Gerry Whitehead MD - 01/10/2025 10:00 AM EDT SUBJECTIVE Julia Bedoya is a 49 y.o. female who presents for Diabetes and Follow- up (Pt had expressed that she feels like she may have slept wrong due to having slight discomfort on her upper chest, didn't report sharp pain but that when she touches a specific area its uncomfortable and it also affected her left arm mobility). Diabetes She presents for her follow-up diabetic visit. She has type 2 diabetes mellitus. Pertinent negatives for hypoglycemia include no headaches. Pertinent negatives for diabetes include no chest pain. Hypertension This is a chronic problem. The problem is controlled. Pertinent negatives include no chest pain, headaches or shortness of breath. Review of Systems Constitutional: Negative for fever. HENT: Negative for sore throat. Respiratory: Negative for cough and shortness of breath. Cardiovascular: Negative for chest pain. Gastrointestinal: Negative for abdominal pain. Neurological: Negative for headaches. Allergies Allergen Reactions Shellfish-Derived Products Swelling Surgilube [Cream Base] Itching Penicillin V Rash OBJECTIVE Vitals: 01/10/25 0947 BP: 127/78 BP Location: Left arm Patient Position: Sitting BP Cuff Size: Adult Pulse: 62 Resp: 20 Temp: 97.1 ??F (36.2 ??C) TempSrc: Temporal SpO2: 99% Weight: 209 lb 9.6 oz (95.1 kg) Height: 5' 5 (1.651 m) Physical Exam Vitals reviewed. Constitutional: Appearance: Normal appearance. HENT: Head: Normocephalic and atraumatic. Right Ear: External ear normal. Left Ear: External ear normal. Nose: Nose normal. Mouth/Throat: Mouth: Mucous membranes are moist. Eyes: Conjunctiva/sclera: Conjunctivae normal. Cardiovascular: Rate and Rhythm: Normal rate and regular rhythm. Pulmonary: Effort: Pulmonary effort is normal. Breath sounds: Normal breath sounds. Skin: General: Skin is warm. Neurological: Mental Status: She is alert. Mental status is at baseline. Assessment/Plan Problem List Items Addressed This Visit Type 2 diabetes mellitus without complication (CMS/HCC) - Primary Pt is here for a routine follow up She is on a regimen of: Metformin XR 500 mg to 1 tab po daily. Stopped Trulicity due to low blood sugars Hgb A1c 01/10/2025: 6.7 Microalbumin 03/26/2021 was 1.7 Pt not on an YOUSUF inhibitor/ARB, w Foot check not done Reports compliance with Asa 81 mg po daily refered to our pharmaceutical operator previous visit Plan: Continue current regimen Pt advised to: adhere to diabetic diet check your blood sugars regularly check your feet on a daily basis. f/u 3 months Relevant Orders POCT Glucose (Completed) POCT HGB A1C (Completed) TSH with Reflex to Free T4 Albumin, Random Urine W/Creatinine CBC auto differential Essential hypertension Pt here for a follow up BP [...] about medication compliance, counseled about weight loss. Relevant Medications lisinopril 10 MG tablet Other Relevant Orders Comprehensive Metabolic Panel CBC auto differential Precordial pain Pt with previous c/o intermittent chest pain, seen for this 09/12/2024 sent to the ER, work up in the ER was unrevealing, although pt left before the ER physician was able to discuss the finding withher. It appears her psychiatrist did an ECG that showed: No acute ST T changes. Given multiple risk factors such as DM, HTN, she needs to be evaluated by Cardiology for an outpt stress test. Pt scheduled to see Cardiology 03/09/2025 Obesity (BMI 30.0-34.9) Patient has been counseled and educated about diet and exercise. Personal goal of weight loss discussedPatient has comorbidity of: DM Previously referred to [facility] Weight management center. I had asked my MA to provide the information for the educational sessions Dietary Recommendations: Fruits, vegetables, whole grains, protein foods, and fat-free or low-fat dairy products are healthychoices. Eat different types of protein foods in your diet. This can include seafood, lean meats, poultry, beans, peas, lentils, nuts, seeds, soy products, and eggs. Limit foods and beverages higher in added sugars, saturated fat, and sodium. Exercise Recommendations: At least 150 minutes of moderate-intensity physical activity per week, or an equivalent combinationof moderate- and vigorous-intensity activity Preventative health care Mammogram: 06/26/2023 Normal Pap Smear: h/o CIN3 and underwent LEEP , path CIN2.. last PAP 04/2021 Normal with co-test f/u recommended in 5 yrs. Colonoscopy done 02/12/2024, showed hyperplastic polyp Mixed anxiety and depressive disorder Pt is now under the care of a psychiatrist Dr Diaz at [facility] following with therapist Buspirone 10 mg TID Effexor XR 150 mg po daily Klonopin 1 mg qhs Other Visit Diagnoses Dietary counseling Exercise counseling Breast cancer screening by mammogram Relevant Orders BI Mammogram Screening Tomosynthesis Bilateral documented in this encounter Miscellaneous Notes * Assessment & Plan Note - Gerry Whitehead MD - 01/10/2025 10:09 AM EDT Associated Problem(s): Mixed anxiety and depressive disorder Pt is now under the care of a psychiatrist Dr Diaz at [facility] following with therapist Buspirone 10 mg TID Effexor XR 150 mg po daily Klonopin 1 mg qhs * Assessment & Plan Note - Gerry Whitehead MD - 01/10/2025 10:06 AM EDT Associated Problem(s): Preventative health care Mammogram: 06/26/2023 Normal Pap Smear: h/o CIN3 and underwent LEEP , path CIN2.. last PAP 04/2021 Normal with co-test f/u recommended in 5 yrs. Colonoscopy done 02/12/2024, showed hyperplastic polyp * Assessment & Plan Note - Gerry Whitehead MD - 01/10/2025 8:43 AM EDT Associated Problem(s): Obesity (BMI 30.0-34.9) Patient has been counseled and educated about diet and exercise. Personal goal of weight loss discussedPatient has comorbidity of: DM Previously referred to [facility] Weight management center. I had asked my MA to provide the information for the educational sessions Dietary Recommendations: Fruits, vegetables, whole grains, protein foods, and fat-free or low-fat dairy products are healthychoices. Eat different types of protein foods in your diet. This can include seafood, lean meats, poultry, beans, peas, lentils, nuts, seeds, soy products, and eggs. Limit foods and beverages higher in added sugars, saturated fat, and sodium. Exercise Recommendations: At least 150 minutes of moderate-intensity physical activity per week, or an equivalent combinationof moderate- and vigorous-intensity activity * Assessment & Plan Note - Gerry Whitehead MD - 01/10/2025 8:42 AM EDT Associated Problem(s): Essential hypertension Pt here for a follow up BP [...] about medication compliance, counseled about weight loss. * Assessment & Plan Note - Gerry Whitehead MD - 01/10/2025 8:41 AM EDT Associated Problem(s): Type 2 diabetes mellitus without complication (CMS/[facility]) Pt is here for a routine follow up She is on a regimen of: Metformin XR 500 mg to 1 tab po daily. Stopped Trulicity due to low blood sugars Hgb A1c 01/10/2025: 6.7 Microalbumin 03/26/2021 was 1.7 Pt not on an YOUSUF inhibitor/ARB, w Foot check not done Reports compliance with Asa 81 mg po daily refered to our pharmaceutical operator previous visit Plan: Continue current regimen Pt advised to: adhere to diabetic diet check your blood sugars regularly check your feet on a daily basis. f/u 3 months * Assessment & Plan Note - Gerry Whitehead MD - 01/10/2025 8:36 AM EDT Associated Problem(s): Precordial pain Pt with previous c/o intermittent chest pain, seen for this 09/12/2024 sent to the ER, work up in the ER was unrevealing, although pt left before the ER physician was able to discuss the finding withher. It appears her psychiatrist did an ECG that showed: No acute ST T changes. Given multiple risk factors such as DM, HTN, she needs to be evaluated by Cardiology for an outpt stress test. Pt scheduled to see Cardiology 03/09/2025 documented in this encounter Plan of Treatment Upcoming Encounters Date Type Department Care Team (Late st Contact Info) Description 04/18/2025 11:15 AM EDT Office Visit [facility] [address] [place] [address] Gerry Echavarria MD [address] [place] [address] Scheduled Orders Name Type Priority Associated Diagnoses Orde r Schedule BI Mammogram Screening Tomosynthesis Bilateral Imaging Routine Breast cancer screening by mammogram Ordered: 01/10/2025 Comprehensive Metabolic Panel Lab Routine Essential hypertension Ordered: 01/10/2025 TSH with Reflex to Free T4 Lab Routine Type 2 diabetes mellitus without complication, without long-term current use of insulin (CMS/HCC) Ordered: 01/10/2025 Albumin, Random Urine W/Creatinine Lab Routine Type 2 diabetes mellitus without complication, without long-term current use of insulin (CMS/HCC) Ordered: 01/10/2025 CBC auto differential Lab Routine Type 2 diabetes mellitus without complication, without long-term current use of insulin (CMS/HCC) Essential hypertension Expected: 01/10/2025 (Approximate), Expires: 01/10/2026 documented as of this encounter Goals Goal Patient Goal Type Associated Problems Recent Progress Patient-Stated? Author Blood Pressure < 140/90 Blood Pressure Essential hypertension 127/78(2024 9:47 AM EDT) Angel Adam, PharmD Note: BP at goal every other [...] heart health documented as of this encounter Procedures Procedure Name Priority Date/Time Associated Diagnosis Comments POCT GLYCATED HEMOGLOBIN, TOTAL Routine 01/10/2025 9:59 AM EDT Type 2 diabetes mellitus without complication, without long-term current use of insulin ([facility]) POCT GLUCOSE Routine 01/10/2025 9:56 AM EDT Type 2 diabetes mellitus without complication, without long-term current use of insulin ([facility]) documented in this encounter Results * (ABNORMAL) POCT HGB A1C (01/10/2025 9:59 AM EDT) Hemoglobin A1C 6.7(A) 4.0 - 6.0 % QC Media Lot # [id number] Lot# Expiration Date , Blood 01/10/2025 9:59 AM EDT Gerry Whitehead MD POINT OF CARE TEST EN TER/EDIT ORDERABLES Final Result * (ABNORMAL) POCT Glucose (01/10/2025 9:56 AM EDT) Glucose Blood, POC 228(A) 60 - 200 mg/dL QC Media Lot # [id number] Lot# Expiration Date 518,290 Blood Capillary blood specimen / Unknown 01/10/2025 9:56 AM EDT us Gerry Whitehead MD POINT OF CARE TEST EN TER/EDIT ORDERABLES Final Result documented in this encounter Visit Diagnoses Diagnosis Type 2 diabetes mellitus without complication, without long-term current use of insulin ([facility])- Primary Essential hypertension Unspecified essential hypertension Precordial pain Obesity (BMI 30.0-34.9) Dietary counseling Dietary surveillance and counseling Exercise counseling Preventative health care Routine general medical examination at a health care facility Breast cancer screening by mammogram Mixed anxiety and depressive disorder Dysthymic disorder documented in this encounter Additional Health Concerns Assessment Noted Time PHQ-9 Depression Total Score: 11 11/01/ 024 11:14 AM EST documented as of this encounter Care Teams Realty Specialist Relationship Specialty Start Date End Date Gerry Echavarria MD [address] [place] [id number] PCP - General Internal Medicine 07/26/14 Theron New Alarm Service TechnicianGraining Press Operator 01/08/24 [facility] 09/28/24 documented as of this encounter
--- OUTSIDE RECORDS SUMMARY | 2025-01-12 16:48 | XMS_ITS | Encounter Summary ---
Author Organization [facility] Address [address] [place] [address] 7 [place] [address] Care Team Providers Care Newspaper Delivery Counselor Name Role Phone Gerry Echavarria MD Primary Care Provide r Reason for Visit * Reason Onset Date Comments Nurse Triage 04/06/2023 Encounter Details Date Type Department Care Team ([facility] st Contact Info) Description 04/06/2023 Telephone [facility] [address] [place], [place] [phone] Gerry Echavarria MD [address] [place] [address] Nurse Triage Social History Tobacco Use Types Packs/Day Years Used Date Smoking Tobacco: Never Passive Smoke Exposure: Never Smokeless Tobacco: Never Alcohol Use Standard Drinks/Week Comments Not Currently 0 (1 standard drink = 0.6 oz pur e alcohol) Depression Answer Date Recorded Patient Health Questionnaire-9 Score 11 02/10/2023 Depression Answer Date Recorded Patient Health Questionnaire-2 Score 3 02/10/2023 Comments Unknown Sex and Gender Information Value [...] suspected to have Coronavirus/COVID-19? No / Unsure 04/06/2023 5:42 PM EDT documented as of this encounter Miscellaneous Notes * Telephone Encounter - Faina Guerrero RN - 04/06/2023 4:58 PM EDT Triage call with [place] [employer] [id number] Pt reports cough, sore throat, headache and earache. This all started last 04/02. Pt doesn'tknow if there has been fever because Pt has been taking tylenol and dayquil regularly. Pt is neg for nasal drainage but, cough is productive in the mornings with yellow sputum. Pt denies difficulty breathing. Pt did a home covid test and it is negative. Pt is advised to come to [facility] today to be seenand Pt agrees with disposition. Home care reviewed. Insurance is verified as active prior to booking. Multiple (2) protocols were used on this call. Disposition for Call: See in Office or Video Visit Today Protocol Used: Sore Throat (Adult) Protocol-Based Disposition: See in Office or Video Visit Today Video visit not offered Positive Triage Questions: * Severe sore throat pain * Earache also present * Patient wants to be seen * All higher-acuity triage questions were negative Care Advice Discussed: * For Relief of Sore Throat Pain * Pain and Fever Medicines * Pain and Fever Medicines - Extra Notes and Warnings * Soft Diet * Drink Plenty of Liquids * Contagiousness * Expected Course * Reasons To Call Back - Sore throat is the main symptom and it lasts longer than 48 hours - Sore throat is mild but lasts longer than 4 days - Fever lasts longer than 3 days - You become worse Protocol Used: Cough (Adult) Protocol-Based Disposition: See in Office or Video Visit Today or Tomorrow Video visit not offered Positive Triage Question: * Patient wants to be seen * All higher-acuity triage questions were negative Care Advice Discussed: * Reassurance and Education - Cough * Cough Medicines * Prevent Dehydration * Avoid Tobacco Smoke * Humidifier * Fever Medicines * Fever Medicines - Extra Notes and Warnings * Expected Course * Reasons To Call Back - Difficulty breathing - Cough lasts more than 3 weeks - Fever lasts more than 3 days - You become worse * Telephone Encounter - Jess Shalom - 04/06/2023 4:41 PM EDT Symptoms: Sore Throat, Earache, Headache Outcome: Schedule an urgent appointment (within 4 hours) or talk to a nurse or provider soon Reason: Getting worse The caller accepted this outcome (Singaporean speaker) documented in this encounter Plan of Treatment Upcoming Encounters Date Type Department Care Team (Late st Contact Info) Description 04/18/2025 11:15 AM EDT Office Visit [facility] [address] [place], [place] [phone] Gerry Echavarria MD [address] [place] [address] documented as of this encounter Goals Goal [...] documented as of this encounter Care Teams Newspaper Delivery Counselor Relationship Specialty Start Date End Date Gerry Echavarria MD [address] [place], [place] [phone] PCP - General Internal Medicine 07/26/14 Theorn New PhotographerCommutator V Ring Assembler 01/08/24 [facility] 09/28/24 documented as of this encounter
--- OUTSIDE RECORDS SUMMARY | 2025-01-12 16:48 | XMS_ITS | Encounter Summary ---
Author Organization [employer] Address [address] [facility] 7t [place] [address] Care Team Providers Care Seaport Planning Manager Name Role Phone Gerry Echavarria MD Primary Care Provide r Reason for Visit * Reason Comments Med Refill Encounter Details Date Type Department Care Team ([facility] st Contact Info) Description 01/09/2025 Refill [facility] [address] [place] [address] [phone] Gerry Echavarria MD [address] [place], [place] [phone] Chronic migraine without aura without status migrainosus, [...] Description 04/18/2025 11:15 AM EDT Office Visit [facility] [address] [place] [address] Gerry Echavarria MD [address] [place] [address] documented as of this encounter Goals Goal [...] documented as of this encounter Care Teams Seaport Planning Manager Relationship Specialty Start Date End Date Gerry Echavarria MD [address] [place] [address] PCP - General Internal Medicine 07/26/14 Theron New Brand Activation ManagerGrants Director 01/08/24 [facility] 09/28/24 documented as of this encounter
--- OUTSIDE RECORDS SUMMARY | 2025-01-12 16:48 | XMS_ITS | Encounter Summary ---
Author Organization [employer] [facility] Address [address] [place] [address] 7t [place] [address] Care Team Providers Care Enforcement Manager Name Role Phone Gerry Echavarria MD Primary Care Provide r Encounter Details Date Type Department Care Team (Late Contact Info) Description 04/13/2023 Abstract [facility] MEDICINE [address] [place], [place] [phone] Gerry Echavarria MD [address] [place] [address] Social History Tobacco Use Types Packs/Day Years [...] PM EDT documented as of this encounter Plan of Treatment Upcoming Encounters Date Type Department Care Team (Late Contact Info) Description 04/18/2025 11:15 AM EDT Office Visit [facility] MED[facility] [address] [facility] [place] [address] Gerry Echavarria MD [address] [facility] [place] [address] documented as of this encounter Goals Goal [...] documented as of this encounter Care Teams Enforcement Manager Relationship Specialty Start Date End Date Gerry Echavarria MD [address] [facility] [place] [address] PCP - General Internal Medicine 07/26/14 Theron New Digital Research AnalystRecreational Resort Manager 01/08/24 [facility] 09/28/24 documented as of this encounter
--- OUTSIDE RECORDS SUMMARY | 2025-01-12 16:48 | XMS_ITS | Encounter Summary ---
Author Organization [employer] [facility] Address [address] [place] [address] 7t [place] [address] Care Team Providers Care Railroad Firer Name Role Phone Gerry Echavarria MD Primary Care Provide r Reason for Visit * Reason Onset Date Comments Med Refill 11/07/2024 Encounter Details Date Type Department Care Team ([facility] st Contact Info) Description 11/07/2024 Refill [facility] MEDICINE [address] [place], [place] [phone] Name, MD Wai [address] [place] [address] Fibromyalgia Social History Tobacco Use Types Packs/Day Years [...] Description 04/18/2025 11:15 AM EDT Office Visit [facility] [address] [place] [address] Gerry Echavarria MD [address] [place] [address] documented as of this encounter Goals Goal [...] as of this encounter Visit Diagnoses Diagnosis Fibromyalgia Unspecified myalgia and myositis documented in this encounter Additional Health Concerns Assessment Noted Time PHQ-9 Depression Total Score: 11 024 11:14 AM EST documented as of this encounter Care Teams Railroad Firer Relationship Specialty Start Date End Date Gerry Echavarria MD [address] [place] [address] PCP - General Internal Medicine 07/26/14 Theron New Program SupervisorWarp Hanger 01/08/24 [facility] 09/28/24 documented as of this encounter
--- OUTSIDE RECORDS SUMMARY | 2025-01-12 16:48 | XMS_ITS | Encounter Summary ---
Author Organization [employer] Address [address] [facility] 7t [place] [address] Care Team Providers Care Shipping Hand Name Role Phone Gerry Echavarria MD Primary Care Provide r Reason for Visit * Reason Comments Med Refill Encounter Details Date Type Department Care Team ([facility] st Contact Info) Description 03/24/2024 Refill [facility] MED[facility]INE [address] [place] [address] Name, MD Wai [address] [place] [address] Seasonal allergies Social History Tobacco Use Types [...] 11:15 AM EDT Office Visit [facility] [address] [place] [address] Gerry Echavarria MD [address] [place] [address] documented as of this encounter Goals Goal [...] documented as of this encounter Care Teams Shipping Hand Relationship Specialty Start Date End Date Gerry Echavarria MD [address] [place] [address] PCP - General Internal Medicine 07/26/14 Theron New Cosmetic DentistSludge Filtration Operator 01/08/24 [facility] 09/28/24 documented as of this encounter
--- OUTSIDE RECORDS SUMMARY | 2025-01-12 16:48 | XMS_ITS ---
Author Organization [facility] Address [address] [facility] [address] [place] [phone] Care Team Providers Care Optical Manufacturing Technician Name Role Phone Shantell Whitehead MD, Gerry Primary Care Provide r Itz Olivo Jr, Wesley Unavailable REASON FOR VISIT gerd,abn findings in stool Problems Problem Type SNOMED Code ICD Code Onset Dates Problem Status W/U Status Risk Notes Problem Gastroesophageal reflux disease (782740204) Chronic GERD (K21.9) Active confirmed Encounters Encounter Location Date Provider Diagnosis [facility] Outpatient [address] [place] [phone] 02/12/2024 Wesley Olivo Jr Abnormal findings in [...] Name:Wesley ferrer Jr, 04/10/2025 10:40:00 AM, [address], [address], [place], [address], Progress Notes * FLOREZCHERELLE BEANDOB: 6 (49 yo F)Acc No.[id number]:02/12/2024 EGD and COL/MAC Patient:?LEISA FLOREZARIS Provider:?Wesley Olivo MD :1975???Age:48 Y???Sex:Female D ate:02/12/2024 Address: [place], [place] Pcp:Gerry flores MD Subjective: * Chief Complaints: * ???1. Gerd,abn findings in s tool. * Medical History:? Objective: * Vitals:? Assessment: * Assessment: 1.?Abnormal findings in stoo l - R19.5 (Primary)???2.?Colon polyps - K63.5???3.?Chronic GERD - K21.9??? Plan: * Treatment: * Procedure Codes:?29213 LESIO N REMOVAL COLONOSCOPY, 68215 UPPER GI ENDOSCOPY, BIOPSY * * The named appointment provid er may or may not be the originator of this progress note, and it is not deemed complete until electronically signed by the appointment provider. Sign off status: Pending * Provider:?Wesley Olivo MD Date:?0 02/12/2024 Generated for Ada thompson/Tiff/eTransmitting on:?01/12/2025 04:48 PM EDT
--- OUTSIDE RECORDS SUMMARY | 2025-01-12 16:48 | XMS_ITS | Patient Health Record ---
Author Organization [facility] Address [address] [place] [phone] Care Team Providers Care Landcare Officer Name Role Phone Shantell Whitehead MD, Gerry Primary Care Provide Wesley Montalvo Jr Unavailable [phone] Allergies Allergen (clinical drug ingredient) Drug/Non Drug Allergy documented on EMR Reaction Allergy Type Onset Date Status shrimp allergenic extract Shrimp (Diagnostic) Unknown Drug Allergy Active Penicillin Unknown Drug Allergy Active Results Component Value Reference Range Notes Pathology Reviewed date:02/25/2024 09:37:02 AM Interpretation: Performing Lab:[facility], [address] [place] [phone] Notes/Report: Name: Cherelle Smith Age/Sex: 48/F : 1975 Unit#: [id number] Attend Dr: Wesley Olivo MD Re02/12/24 Status : [facility] Location: [facility] Disch: SPEC : [id number] RECD : 02/12/240 STATUS: JOSÉ LUIS HECK NUM: [id number] TRAY: 02/12/24-[address] [facility] [address]: Wesley Olivo MD ENTERED: 02/12/24-13 [...] Cherelle Smith Age/Sex: 48/F : 1975 Unit#: [id number] Attend Dr: Wesley Olivo MD Re02/12/24 Status : [facility] Location: [facility] Disch: SPEC : [id number] RECD : 02/12/24-1320 STATUS: JOSÉ LUIS HECK NUM: [id number] TRAY: 02/12/24-[address] [facility] [address]: Wesley Olivo MD ENTERED: 02/12/24- [...] copic examination, 2 pieces in cassette [facility] Special studies orde red and performed: Immunostain for H. pylori on B1; AB/PAS stains on A1, B1, and C1. Copies To: Wesley Olivo MD [address] [place] [address] [id number] [place] [address] Gerry Lopez MD [address] [facility] [place] [address] Signed (si gnature on file) Tamy Lowe 02/17/24 1244 END OF REPORT Reason For Referral Referring Provider First Name Gerry Referring Provider Last Name Shantell sellers Referring Provider Speciality Internal M edicine Referred Organization [facility] Referred Provider Wesley Olivo Jr Referred Address [address] [place] [address],[place] [address],[place],[phone], Referred Provider Specialty Gastroentero logy Referral Priority [...] predniSONE 20 MG TAKE 1 TABLET BY ZOILA TH EVERY DAY Oral for 5 Active [...] Problem Status W/U Status Risk Notes Problem [id number] Abnormal finding s in stool (R19.5) Active confirmed Problem 438421662 H. pylori infection (A04.8) Active confirmed Problem 831478058 Gastroesophageal reflux disease, unspecified whether esophagitis present (K21.9) Active confirmed Problem Gastroesophageal reflux disease (834957300) Chronic GERD (K21.9) Active confirmed Vital Signs Temperature 97.1 degrees Fahrenheit 01/13/2024 Blood pressure diastolic 00 mm Hg 01/13/2024 Height 65.75 in 01/13/2024 Blood pressure systolic 000 mm Hg 01/13/2024 Weight 210 lb 2 oz lbs 01/13/2024 BMI 34.17 kg/m2 01/13/2024 Encounters Encounter Location Date Provider Diagnosis [facility] Outpatient [address] [place] [phone] 02/12/2024 Wesley Olivo Jr Abnormal findings in stool R19.5 ; Colon polyps K63.5 and Chronic GERD K21.9 [facility] [address] [place] [phone] 01/13/2024 Wesley Olivo Jr Gastroesophageal reflux disease, unspecified whether esophagitis present K21.9 and Abnormal findings in stool R19.5 [facility] [address] [place] [phone] 01/13/2024 Wesley Olivo Jr [facility] [address] [place] [phone] 02/24/2024 Wesley Olivo Jr H. pylori infection [...] Provider Name:Wesley ferrer , 04/10/2025 10:40:00 AM, [address] [place] [address], [address], [place], [address], Insurance Providers Payer Name Payer Address Payer Phone Subscriber Number Group Number Insured Name Patient Relationship to Insured Coverage Start Date Coverage End Date [facility] [address] [place] [address] [id number] CHERELLE FLOREZ Self - patient is the insured Medical (General) History Medical History History ICD Code esophageal reflux, EGD 05/16, no [place]' s esophagus or H. pylori. Headaches Allergic rhinitis Insomnia Fibromyalgia Osteoarthritis Diabetes mellitus type 2 Surgical History Surgery Date(Month/Year) tonsillectomy tubal ligation
--- OUTSIDE RECORDS SUMMARY | 2025-01-12 16:48 | XMS_ITS | Encounter Summary ---
Author Organization [employer] Address [address] [facility] 7t [place] [address] Care Team Providers Care Contract Negotiation Manager Name Role Phone Gerry Echavarria MD Primary Care Provide r Encounter Details Date Type Department Care Team (Late st Contact Info) Description 01/12/2025 Orders Only GENERIC EXTERNAL DATA DEPARTMENT Provider, Generic External Data Social History Tobacco Use Types Packs/Day Years [...] Upcoming Encounters Date Type Department Care Team ([facility] st Contact Info) Description 04/18/2025 11:15 AM EDT Office Visit [facility] MEDICINE [address] [place] [address] Gerry Echavarria MD [address] [place] [address] documented as of this encounter Goals Goal [...] Procedure Name Priority Date/Time Associated Diagnosis Comments D DIMER HIGH SENSITIVITY Routine 01/12/2025 3:45 PM EDT HIGH SENSITIVITY TROPONIN I Routine 01/12/2025 3:45 PM EDT HIGH SENSITIVITY TROPONIN I Routine 01/12/2025 12:10 PM EDT TSH W/REFLEX TO FT4 Routine 01/12/2025 1 2:10 PM EDT SARS COV2/INFLUENZA A/B AND RSV RNA QL NAAT Routine 01/12/2025 12:10 PM EDT CBC WITH AUTO DIFFERENTIAL Routine 01/12/2025 12:10 PM EDT MAGNESIUM Routine 01/12/2025 12:10 PM EDT HEPATIC FUNCTION PANEL Routine 01/12/2025 12:10 PM EDT BASIC METABOLIC PANEL Routine 01/12/2025 12:10 PM EDT XR CHEST 2 VIEWS Routine 01/12/2025 11:5 6 AM EDT documented in this encounter Results * High Sensitivity Troponin I (01/12/2025 3:45 PM EDT) [facility] TROPONIN I HIGH SENSITIVITY <2.7 <3.5 - 17.0 ng/L [facility] Comment:The Linares high sens itivity Troponin-I results should beused in conjunction with other diagnostic information suchas ECG, clinical observations and information, and patientsymptoms to aid in the diagnosis of [place]. 01/12/2025 3:45 PM EDT 01/12/2025 3:49 PM EDT us Generic External Data Provider LAB BLOOD ORDERAB LES Final Result [facility] [address] [place] [phone] * D Dimer High Sensitivity (01/12/2025 3:45 PM EDT) [facility] D Dimer High Sensitivity 165 NG/ML [facility] Comment:D-DIMER HS REFERENCE RANGENote: Our assay [...] ORDERAB LES Final Result Performing Organization Address [facility] Co de Phone Number [facility] [address] [place] [phone] * SARS-CoV-2 RNA, Influenza A/B, and RSV RNA, Ql NAAT (01/12/2025 12:10 PM EDT) Influenza A PCR NEGATIVE Negative [facility] Influenza B PCR NEGATIVE Negative [facility] Resp Syncy Virus RNA Qual PCR NEGATIVE Negative [facility] SARS COV2 PCR NEGATIVE Negative [facility] Comment:All test results mus t be [...] use by authorized laboratories.Testing performed on the [employer] GeneXpert utilizingreal-time RT-PCR.All SARS CoV2 and positive influenza A/B results arereported to [facility]. 01/12/2025 12:1 0 PM EDT 01/12/2025 12:18 PM EDT Generic External Data Provider LAB MICROBIOLOGY - GENERAL ORDERABLES Final Result Performing Organization Address [facility] Co de Phone Number [facility] [address] [place] [address] [phone] * TSH with Reflex to Free T4 (01/12/2025 12:10 PM EDT) Pathologist [facility] TSH reflex Free T4 1.24 0.32 - 4.0 uIU/mL [facility] 01/12/2025 12:1 0 PM EDT 01/12/2025 12:18 PM EDT us Generic External Data Provider LAB BLOOD ORDERAB LES Final Result Performing Organization Address [facility] Co de Phone Number [facility] [address] [place] [phone] * High Sensitivity Troponin I (01/12/2025 12:10 PM EDT) [facility] TROPONIN I HIGH SENSITIVITY <2.7 <3.5 - 17.0 ng/L [facility] Comment:The Linares high sens itivity Troponin-I results should beused in conjunction with other diagnostic information suchas ECG, clinical observations and information, and patientsymptoms to aid in the diagnosis of [place]. 01/12/2025 12:1 0 PM EDT 01/12/2025 12:18 PM EDT us Generic External Data Provider LAB BLOOD ORDERAB LES Final Result Performing Organization Address [facility] Co de Phone Number [facility] [address] [place] [address] [phone] * Magnesium (01/12/2025 12:10 PM EDT) Pathologist [facility] Magnesium 1.8 1.6 - 2.6 mg/dL [facility] 01/12/2025 12:1 0 PM EDT 01/12/2025 12:18 PM EDT us Generic External Data Provider LAB BLOOD ORDERAB LES Final Result Performing Organization Address [facility]/ZIP Co de Phone Number [facility] [address] [place] [address] [phone] * (ABNORMAL) Basic Metabolic Panel (01/12/2025 12:10 PM EDT) Sodium 140 135 - 145 mmol/L [facility] Potassium 3.9 3.3 - 5.1 mmol/L [facility] Chloride 107 96 - 108 mmol/L [facility] Carbon Dioxide 27 22 - 29 mmol/L [facility] Anion Gap 10(L) 12 - 20 [facility] Urea Nitrogen (BUN) 16 9 - 16 mg/dL [facility] Creatinine, Serum 0.82 0.5 - 1.4 mg/dL [facility] Creatinine Clr Calc Pharmacy 94.3 [facility] Comment:Provided height and weight: 165.1 cm,92.5 kg.eGFR (calculated from the MDRD study equation) and eCrCl(calculated from the Cockcroft-Gault equation) are based ondifferent parameters and may not yield comparable results.If eCrCl result is absurd, please check patient'sheight/weight. Estimated Glomerular Filt Rate >60 [facility] Comment:Chronic Kidney Disea se: Estimated GFR < 60 mL/min/[id number] Kidney Disease: Estimated GFR < 15 mL/min/1.73m2 Glucose 188(H) 60 - 115 mg/dL [facility] Calcium 9.0 8.4 - 10.2 mg/dL [facility] 01/12/2025 12:1 0 PM EDT 01/12/2025 12:18 PM EDT us Generic External Data Provider LAB BLOOD ORDERAB LES Final Result [facility] [address] [place] [phone] [phone] * Hepatic Function Panel (01/12/2025 12:10 PM EDT) Bilirubin, Total 0.4 0.0 - 1.0 mg/dL [facility] Bilirubin, Direct 0.2 0.0 - 0.5 mg/dL [facility] Aspartate Amino Transferase 25 5 - 31 U/L [facility] Alanine Aminotransferase 27 0 - 31 U/L [facility] Total Protein 7.4 6.5 - 8.0 g/dL [facility] Albumin Level 3.9 3.5 - 5.0 g/dL [facility] Alkaline Phosphatase 75 39 - 117 U/L [facility] 01/12/2025 12:1 0 PM EDT 01/12/2025 12:18 PM EDT us Generic External Data Provider LAB BLOOD ORDERAB LES Final Result [facility] [address] [place] [address] [phone] * (ABNORMAL) CBC auto differential (01/12/2025 12:10 PM EDT) White Blood Count 6.5 4.8 - 10.8 X10*3/uL [facility] Red Blood Count 4.37 4.20 - 5.50 X10*6/uL [facility] Hemoglobin 12.9 12.0 - 16.0 g/dl [facility] Hematocrit 38.5 37.0 - 47.0 % [facility] Mean Corpuscular Volume 88.1 80.0 - 98.0 fL [facility] Mean Corpuscular Hemoglobin 29.5 27.0 - 33.0 pg [facility] Mean Corpuscular HGB Conc 33.5 31.0 - 35.0 g/dl [facility] Red Cell Distribution Width 13.2 11.0 - 16.0 % [facility] Platelet Count 298 160 - 400 X10*3/uL [facility] Mean Platelet Volume 10.1 9.4 - 12.3 fL [facility] Neutrophils Percent Auto 60.0 45 - 73 % [facility] Imm Gran Pct Auto 0.5(H) 0.0 - 0.4 % [facility] Lymphocytes Percent Auto 32.6 20 - 40 % [facility] Monocytes Percent Auto 5.1 2 - 11 % [facility] Eosinophils Percent Auto 1.5 0 - 4 % [facility] Basophils Percent Auto 0.3 0 - 2 % [facility] NRBC Pct Auto 0.0 0.0 - 0.2 /100WBC [facility] Neutrophils Absolute Auto 3.9 2.0 - 8.3 x10*3/uL [facility] Imm Gran Abs Auto 0.03 0.00 - 0.03 X10*3/uL [facility] Lymphocytes Absolute Auto 2.1 1.2 - 4.9 X10*3/uL [facility] Monocytes Absolute Auto 0.3 0.1 - 1.2 X10*3/uL [facility] Eosinophils Absolute Auto 0.1 0.0 - 0.4 X10*3/uL [facility] Basophils Absolute Auto 0.0 0.0 - 0.2 X10*3/uL [facility] NRBC Abs Auto 0.000 0.0 - 0.012 X10*3/uL [facility] 01/12/2025 12:1 0 PM EDT 01/12/2025 12:18 PM EDT us Generic External Data Provider LAB BLOOD ORDERAB LES Final Result Performing Organization Address City/State/[facility] Co de Phone Number [facility] [address] [place] [phone] * XR Chest 2 Views (01/12/2025 11:56 AM EDT) Anatomical Region Laterality Modality Chest Radiographic Angy ging 01/12/2025 11:5 6 AM EDT Narrative 01/12/2025 12:47 PM EDT ? [facility] ?[address] ?[place] [address] ?XRay Report ? Signed ? Patient: Bethany Bedoya,Julia ?MR#: ?? [id number] ? : 1975 ?Acct:[id number] ? Age/Sex: 49 / F ?ADM Date: 03/13/25 ? Loc: HO.ED ? Attending Dr: ? Ordering Physician: Kriss Askew ?? Date of Service: 01/12/25 ?? Procedure(s): XR chest 2V ?? Accession Number(s): [id number] ? cc: Aubrie Trinidad MD; Kriss Askew ? EXAMINATION: ??XR CHEST 2 VIEWS ? [...] ??Edwin Ronquillo MD ??01/12/2025 12:45 PM EDT ? Dictated By: ?Edwin Ronquillo MD ? Signed By: ?<Electronically signed by Edwin Ronquillo MD in OV> ?01/12/25 1245 ? DD/ 1156 ? TD/TT: 01/12/25 1239 ? [employer]: ? Procedure Note Clydeangelistephyyoel, Image - 01/12/2025 [place] [address] XRay Report Signed Patient: Julia SmithMR#: [id number] : 1975Acct:[id number] Age/Sex: 49 / FADM Date: 01/12/25 Loc: HO.ED Attending Dr: Ordering Physician: Kriss Askew Date of Service: 01/12/25 Procedure(s): XR chest 2V Accession Number(s): [id number] cc: Aubrie Trinidad MD; Kriss Askew EXAMINATION: [...] 01/12/25 1245 DD/ 1156 TD/TT: 01/12/25 1239 [employer]: [facility] External Provider IMG XR PROCEDURES Edited Result - Final documented in this encounter Visit Diagnoses Not on filedocumented in this encounter Additional Health Concerns Assessment Noted Time PHQ-9 Depression Total Score: 11 11/01/ 024 11:14 AM EST documented as of this encounter Care Teams Contract Negotiation Manager Relationship Specialty Start Date End Date Gerry Echavarria MD [address] [place] [phone] PCP - General Internal Medicine 07/26/14 Theron New Licensed Insurance Sales AgentClinical Psychologist Private Practice 01/08/24 [facility] 09/28/24 documented as of this encounter
--- OUTSIDE RECORDS SUMMARY | 2025-01-12 16:48 | XMS_ITS | Encounter Summary ---
Author Organization [employer] [facility] Address [address] [place] [address] 7 [place] [address] Care Team Providers Care Presto Log Operator Name Role Phone Gerry Echavarria MD Primary Care Provide r Reason for Visit * Reason Onset Date Comments Chart Prep 12/29/2024 Encounter Details Date Type Department Care Team ([facility] st Contact Info) Description 12/29/2024 Telephone [facility] MEDICINE [address] [place], [place] [phone] Gerry Echavarria MD [address] [place] [address] Chart Prep Social History Tobacco Use Types Packs/Day Years [...] encounter Miscellaneous Notes * Telephone Encounter - Danielle Park [place] - 12/29/2024 9:56 AM EST Chart Prep Labs: not applicable Images: not applicable Vaccines due: Covid Due, PCV20 Due, and Flu Due Referrals: Cardiology Pending appointment on 03/09/2025 @2PM Screenings: Eye Exam, Foot Exam, and HIV screening Overdue care gaps: A1C, Glucose, and Oral Health Chart prep for upcoming appt with Dr.Esparza josue. LB documented in this encounter Plan of Treatment Upcoming Encounters Date Type Department Care Team (Late st Contact Info) Description 04/18/2025 11:15 AM EDT Office Visit [facility] MEDICINE [address] [place] [address] Gerry Echavarria MD [address] [place] [address] documented as of this encounter Goals Goal [...] documented as of this encounter Care Teams Presto Log Operator Relationship Specialty Start Date End Date Gerry Echavarria MD [address] [place] [phone] PCP - General Internal Medicine 07/26/14 Theron New Seo AssistantState Game Warden 01/08/24 [facility] 09/28/24 documented as of this encounter
--- OUTSIDE RECORDS SUMMARY | 2025-01-12 16:48 | XMS_ITS | Encounter Summary ---
Author Organization [employer] Address [address] [place] [address] 7 [place] [address] Care Team Providers Care Put In Beat Adjuster Name Role Phone Gerry Echavarria MD Primary Care Provide r Reason for Visit * Reason Onset Date Comments MUTUEL CLERK services 01/03/2025 Encounter Details Date Type Department Care Team ([facility] st Contact Info) Description 01/03/2025 Telephone [facility] MEDICINE [address] [place], [place] [phone] Gerry Echavarria MD [address] [place] [address] MUTUEL CLERK services Social History Tobacco Use Types Packs/Day Years [...] Telephone Encounter - Susie Muhammad RN - 01/04/2025 9:35 AM EST Telephone call returned to pt using [employer] flux plant operator #[id number]. Explained that MUTUEL CLERK paperwork isinitiated by pt and any paperwork should be faxed to [facility] from the MUTUEL CLERK company. Explained that [facility] faxed signed paperwork for referral to [employer] [facility] [employer] already and that if that company needs any other paperwork signed, they should fax it to us and we would be happy to help. Pt verbalized understanding, no further questions. * Telephone Encounter - Aramis Abreu - 01/03/2025 10:41 AM EST Tc from pt requesting for pcp to fill out a form or send an order for MUTUEL CLERK hours 1x hour a day Agency : [facility] [employer] documented in this encounter Plan of Treatment Upcoming Encounters Date Type Department Care Team (Late st Contact Info) Description 04/18/2025 11:15 AM EDT Office Visit [facility] MEDICINE [address] [place] [address] Gerry Echavarria MD [address] [place] [address] documented as of this encounter Goals Goal [...] documented as of this encounter Care Teams Put In Beat Adjuster Relationship Specialty Start Date End Date Gerry Echavarria MD [address] [place] [address] PCP - General Internal Medicine 07/26/14 Theron [place] CookGasoline Tester 01/08/24 [facility] 09/28/24 documented as of this encounter
--- OUTSIDE RECORDS SUMMARY | 2025-01-12 16:48 | XMS_ITS | Encounter Summary ---
Author Organization [employer] [facility] Address [address] [place] [address] 7 [place] [address] Care Team Providers Care Angiography Technologist Name Role Phone Gerry Echavarria MD Primary Care Provide r Reason for Visit * Reason Comments Med Refill Encounter Details Date Type Department Care Team ([facility] st Contact Info) Description 04/04/2023 Refill [facility] MEDICINE [address] [place], [place] [phone] Mala Williamson, ANP [address] [place] [address] Diarrhea, unspecified type; Irritable bowel syndrome, unspecified [...] 11:15 AM EDT Office Visit [facility] [address] [facility] [place] [address] Gerry Echavarria MD [address] [place] [address] documented as of this encounter Goals Goal [...] documented as of this encounter Care Teams Angiography Technologist Relationship Specialty Start Date End Date Geryr Echavarria MD [address] [facility] [place] [address] PCP - General Internal Medicine 07/26/14 Theron New Human Performance ConsultantInfrastructure Developer 01/08/24 [facility] Care 09/28/24 documented as of this encounter
--- OUTSIDE RECORDS SUMMARY | 2025-01-12 16:48 | XMS_ITS | Encounter Summary ---
Author Organization [employer] Address [address] [facility] 7t [place] [address] Care Team Providers Care Echo Technologist Name Role Phone Gerry Echavarria MD Primary Care Provide r Encounter Details Date Type Department Care Team (Latest Contact Info) Description 01/10/2025 Travel Social History Tobacco Use Types Packs/Day Years [...] Description 04/18/2025 11:15 AM EDT Office Visit [facility] MEDICINE [address] [place] [address] Gerry Echavarria MD [address] [place] [address] documented as of this encounter Goals Goal [...] track( 4:06 PM EDT) No Angel Emmanuel, PharmD Note: inactive, advised some amount of cardio can help with heart health documented as of this encounter Visit Diagnoses Not on filedocumented in this encounter Additional Health Concerns Assessment Noted Time PHQ-9 Depression Total Score: 11 11:14 AM EST documented as of this encounter Care Teams Echo Technologist Relationship Specialty Start Date End Date Gerry Echavarria MD [address] [place] [phone] PCP - General Internal Medicine 07/26/14 Theron New Career Development FacilitatorPsychiatric Therapist 01/08/24 [facility] 09/28/24 documented as of this encounter
--- NOTE | 2025-01-12 17:07 | PC.NURSE ---
Pt resting quietly in room; vss; reports + decrease in MS CP after PO Motrin gv per orders; awaiting dispo
[2025-01-12 18:37] VITALS: BP 106/65; PULSE 57; RESP 18; TEMP 36.4; O2SAT 98
[2025-01-12 18:47] LABS: Appearance Urine Clear; Color Urine Dark Yellow; Glucose Urine UA 250 mg/dL (Negative); Leukocyte Esterase Urine Negative (Negative); Nitrite Urine Negative (Negative); PH 5.5 (5.0-9.0); Specific Gravity - Urine >= 1.030 (1.005-1.025); UMIC TRIGGER UACC YES; Urine Blood Trace (Negative); Urine Ketones Trace mg/dL (Negative); Urine Protein Negative (Neg-Trace)
[2025-01-12 18:50] LABS: Bacteria Urine Trace (None Seen); Hyaline Casts Urine 0-2 /LPF (0-2); RBC Urine >20 /HPF (0-2); WBC Urine 0-5 /HPF (0-5)
[2025-01-12 18:56] VITALS: BP 126/73; PULSE 56; RESP 11; O2SAT 98
--- NOTE | 2025-01-12 18:57 | PC.NURSE ---
assumed care of patient at this time
[2025-01-12 19:37] VITALS: BP 126/73; PULSE 56; RESP 11; TEMP 36.6; O2SAT 98
== END 2025-01-12 19:51 | disposition home or self-care (01) ==
PROVIDERS: Physician Assistant Medical; Emergency Provider Emergency Medicine; PCP Internal Medicine
DX: R07.89 Other chest pain (principal); R09.1 Pleurisy; R42 Dizziness and giddiness; R00.2 Palpitations; Z03.818 Encounter for observation for suspected exposure to other biological agents ruled out; Z79.899 Other long term (current) drug therapy
CPT/HCPCS: 0241U; 36415; 71046; 80048; 80076; 81001; 83735; 84443; 84484; 85025; 85379; 93005; 99283; 99285

== ENCOUNTER → 2025-01-12 11:39 | Outpatient (BNV) | payer MEDICAID, SELFPAY | PROVIDERS: PCP Internal Medicine; Visit Provider Internal Medicine | DX: R94.31 Abnormal electrocardiogram [ECG] [EKG] (principal); R07.9 Chest pain, unspecified | CPT/HCPCS: 93010 ==

== ENCOUNTER → 2025-01-12 11:56 | Outpatient (BNV) | payer MEDICAID, SELFPAY | PROVIDERS: PCP Internal Medicine; Visit Provider Radiology Diagnostic Radiology | DX: R07.9 Chest pain, unspecified (principal) | CPT/HCPCS: 71046 ==

== ENCOUNTER 2025-01-17 18:32 | Outpatient (REF) | payer MEDICAID, SELFPAY | END 2025-01-17 18:33 | disposition home or self-care (01) | LOC: HO.HHCLNP 18:32 | PROVIDERS: Visit Provider Family Medicine | DX: R30.0 Dysuria (principal) | CPT/HCPCS: 87086 ==

== ENCOUNTER 2025-01-19 10:19 | Outpatient (REF) | payer MEDICAID, SELFPAY ==
[2025-01-19 11:28] LABS: MANUAL DIFF FLAG NO
[2025-01-19 11:44] LABS: Basophils Percent Auto 0.3 % (0-2); Eosinophils Absolute Auto 0.1 X10*3/uL (0.0-0.4); Eosinophils Percent Auto 0.7 % (0-4); Hematocrit 37.8 % (37.0-47.0); Hemoglobin 12.5 g/dl (12.0-16.0); Imm Gran Abs Auto 0.05 X10*3/uL (0.00-0.03); Imm Gran Pct Auto 0.5 % (0.0-0.4); Lymphocytes Absolute Auto 3.4 X10*3/uL (1.2-4.9); Lymphocytes Percent Auto 32.4 % (20-40); Mean Corpuscular HGB Conc 33.1 g/dl (31.0-35.0); Mean Corpuscular Hemoglobin 29.3 pg (27.0-33.0); Mean Corpuscular Volume 88.7 fL (80.0-98.0); Mean Platelet Volume 10.3 fL (9.4-12.3); Monocytes Absolute Auto 0.6 X10*3/uL (0.1-1.2); Monocytes Percent Auto 5.6 % (2-11); Neutrophils Absolute Auto 6.3 x10*3/uL (2.0-8.3); Neutrophils Percent Auto 60.5 % (45-73); Platelet Count 289 X10*3/uL (160-400); Red Blood Count 4.26 X10*6/uL (4.20-5.50); Red Cell Distribution Width 13.7 % (11.0-16.0); White Blood Count 10.5 X10*3/uL (4.8-10.8)
[2025-01-19 12:16] LABS: Alanine Aminotransferase 30 U/L (0-31); Albumin Level 4.2 g/dL (3.5-5.0); Alkaline Phosphatase 66 U/L (39-117); Anion Gap 10 (12-20); Aspartate Amino Transferase 23 U/L (5-31); Bilirubin Total 0.5 mg/dL (0.0-1.0); Blood Urea Nitrogen 18 mg/dL (9-16); Calcium 9.2 mg/dL (8.4-10.2); Carbon Dioxide 28 mmol/L (22-29); Chloride 107 mmol/L (96-108); Estimated Glomerular Filt Rate > 60; Glucose Random 96 mg/dL (60-115); Sodium 141 mmol/L (135-145); TSH reflex Free T4 3.67 uIU/mL (0.32-4.0); Total Protein 7.7 g/dL (6.5-8.0)
[2025-01-19 12:37] LABS: Microalbum/Creatinine Ratio Ur 24.7 ug/mg cr (<30)
== END 2025-01-19 10:20 | disposition home or self-care (01) ==
LOC: HO.HHCL 10:19
PROVIDERS: Visit Provider Internal Medicine
DX: E11.9 Type 2 diabetes mellitus without complications (principal); I10 Essential (primary) hypertension
CPT/HCPCS: 36415; 80053; 82043; 82570; 84443; 85025

== ENCOUNTER 2025-01-19 11:44 | Emergency (ER) | payer MEDICAID, SELFPAY ==
--- NOTE | ~2025-01-19 | CT_ITS ---
EXAMINATION: CT ABDOMEN PELVIS WITHOUT IV CONTRAST HISTORY: R flank pain COMPARISON: Comparison is made with the prior examination dated 04/09/2024. TECHNIQUE: CT scan of the abdomen and pelvis was performed without contrast using standard departmental protocol. Coronal and sagittal reformatted images were generated and reviewed. Oral contrast material was not administered per department protocol. This CT exam was performed with one or more of the following dose reduction techniques: automated exposure control, adjustment of the mA and/or kV according to patient size, use of iterative reconstruction technique. DLP: 734 mGy-cm FINDINGS: LOWER CHEST: The visualized lung bases are clear. There is no pleural effusion. CARDIOVASCULATURE: The heart is normal in size. There is no pericardial effusion. LIVER: The liver is normal in size and contour. The liver has an unremarkable unenhanced appearance. GALLBLADDER / BILE DUCTS: The gallbladder is unremarkable. There is no intra or extrahepatic biliary ductal dilatation. SPLEEN: The spleen is normal in size and has an unremarkable unenhanced appearance. PANCREAS: The pancreas has an unremarkable unenhanced appearance. ADRENAL GLANDS: Unremarkable. KIDNEYS/RETROPERITONEUM: There is a punctate nonobstructing calculus at the upper pole of the right kidney. There is mild right hydroureteronephrosis to the level of a 3 mm UVJ calculus. No left renal or ureteral calculi are identified. There is a 1.6 cm exophytic cyst of the lower pole of the left kidney. LYMPH NODES: No retroperitoneal lymphadenopathy is identified in the abdomen or pelvis. VASCULATURE: The abdominal aorta is normal in caliber. MESENTERY/PERITONEUM: No free fluid. No masses. There is no free intraperitoneal gas. STOMACH: The stomach is unremarkable. SMALL BOWEL: The small bowel is normal in caliber. COLON: There is diverticulosis of the sigmoid colon, without evidence of diverticulitis. APPENDIX: Normal. URINARY BLADDER/PELVIC ORGANS: The urinary bladder is unremarkable. The uterus has an unremarkable unenhanced appearance. BONES / SOFT TISSUES: No suspicious bony or soft tissue abnormalities. CT/CT abdomen pelvis wo IV con IMPRESSION: 1. Mild right hydroureteronephrosis secondary to a 3 mm UVJ calculus. 2. Punctate nonobstructing calculus at the upper pole of the right kidney. 3. Sigmoid diverticulosis without evidence of diverticulitis. Electronically signed by: Edwin Ronquillo MD 01/19/2025 02:45 PM EDT RP
[2025-01-19 12:00] VITALS: BP 175/94; PULSE 75; RESP 20; TEMP 36.5; O2SAT 100; BMI 34.1
--- NOTE | 2025-01-19 12:00 | ED_ITS ---
HPI - General Adult General Chief complaint: Abdominal Pain Stated complaint: Kidney stone? Time Seen by Provider: 01/19/25 12:50 Source: patient, RN notes reviewed and old records reviewed Mode of arrival: ambulatory History of Present Illness ED Provider: Billie Do PA-C HPI narrative: 49-year-old Salvadorean-speaking female with a past medical history GERD, presenting to the ED complaining of right flank pain radiating to RLQ and substernal chest pain since 10:15AM. Patient admits she was seen in our ED on 01/12/25 for similar symptoms of chest pain and flank pain however flank pain was not addressed at that time. States followed up with PCP and had UA with blood, they suspected renal stone. admits to associated urinary hesitancy /frequency. CP worse with deep breathing. Denies nausea, vomiting, diarrhea, dysuria, gross hematuria, SOB, travel, history of clots, pedal edema Related Data Home Medications ?Medication ?Instructions ?Recorded ?Confirmed cetirizine 10 mg tablet 1 tab PO DAILY 01/09/21 06/09/24 topiramate 50 mg tablet 1 tab PO DAILY headache 01/09/21 06/09/24 acetaminophen 650 mg 650 mg PO Q8H PRN mild pain 04/30/23 06/09/24 tablet,extended release buspirone 30 mg tablet 30 mg PO BID 04/30/23 06/09/24 [id number]-slbogkfhgdscf-bhnxmbuw 1 - 2 tab PO Q6-8H PRN Migraine 04/30/23 06/09/24 50 mg-325 mg-40 mg tablet Headache citalopram 10 mg tablet 20 mg PO DAILY 04/30/23 06/09/24 clonazepam 1 mg tablet 1.5 mg PO BEDTIME 04/30/23 06/09/24 diphenhydramine HCl 25 mg capsule 50 mg PO Q4-6H PRN Anxiety 04/30/23 06/09/24 (Banophen) ferrous gluconate 324 mg (38 mg 324 mg PO QAM 04/30/23 06/09/24 iron) tablet fluticasone propionate 50 2 spray intranasal DAILY 04/30/23 06/09/24 mcg/actuation nasal spray,suspension ketoconazole 2 % shampoo 1 appl topical 2XW 04/30/23 06/09/24 lidocaine 5 % topical patch 1 patch transdermal Q3D PRN pain 04/30/23 06/09/24 lisinopril 10 mg tablet 10 mg PO DAILY 04/30/23 06/09/24 sodium chloride 0.65 % nasal spray 1 - 2 spray intranasal Q2-3H PRN 04/30/23 06/09/24 aerosol (Saline Nasal) congestion clindamycin phosphate 1 % topical 1 appl topical DAILY 06/24/23 06/09/24 solution tacrolimus 0.1 % topical ointment 1 appl topical DIRECTED 06/24/23 06/09/24 venlafaxine 150 mg 150 mg PO QAM 06/24/23 06/09/24 capsule,extended release 24 hr dicyclomine 20 mg tablet 20 mg PO .COMPLEX 07/13/23 06/09/24 hydrocortisone 2.5 % topical 1 appl topical BID 08/18/23 06/09/24 ointment omeprazole 20 mg capsule,delayed 20 mg PO QAM 08/18/23 06/09/24 release cyclobenzaprine 5 mg tablet 5 mg PO TID 06/14/24 Previous Rx's ?Medication ?Instructions ?Recorded gabapentin 100 mg capsule 200 mg (2 x 100 mg) PO TID #180 03/14/24 caps ondansetron HCl 4 mg tablet 4 mg PO Q6H PRN nausea and 04/09/24 vomiting #10 tabs tramadol 50 mg tablet 50 mg PO Q6H PRN pain #20 tabs 05/03/24 oxycodone-acetaminophen 5 mg-325 1 tab PO Q8H PRN pain (scale score 01/19/25 mg tablet (Percocet) 7-10) 3 days #9 tabs tamsulosin 0.4 mg capsule (Flomax) 0.4 mg PO DAILY #14 caps 01/19/25 Allergies Allergy/AdvReac Type Severity Reaction Status Date / Time penicillin G [PENICILLIN G] Allergy Severe ANAPHYLAXIS Verified 01/19/25 12:05 shrimp Allergy Severe Anaphylaxis Verified 01/19/25 12:05 Penicillins [PCN] Allergy Unknown Verified 01/19/25 12:05 Review of Systems 2 Review of Systems: Yes all other systems are reviewed and are negative Constitutional: Constitutional: Reports as per [facility] Past Medical History Attestation statement: The following information was validated with the patient. Source: old records reviewed Medical History Epidermal cyst Pes cavus of both feet Allergies Headache GERD (gastroesophageal reflux disease) Surgical History History of removal of cyst (~06/27/24) History of shoulder surgery History of tubal ligation Hx of tonsillectomy Family History Family History Mother Arthritis Father Diabetes Social History Social History Household Members: Significant Other Are you a primary caregiver services home to a significant other at home: No Do you presently have visiting nurse or other home services: No Alcohol intake: former Patient Tobacco Use Status: Former Tobacco user Advance Directives: No Advance Directives Information Provided: Yes Current occupational status: employed and unemployed Physical Exam ED Vital Signs: Vital Signs - 24 hr 01/19/25 12:00 01/19/25 15:10 Temperature 97.7 F Pulse Rate 75 53 Respiratory Rate 20 16 Blood Pressure 175/94 H 134/76 Pulse Oximetry 100 99 Oxygen Delivery Method Room Air Room Air BMI result Body Mass Index 34.1 Const General: cooperative, healthy appearing and no acute distress Orientation/consciousness: patient oriented x3 Limitations: no limitations HENMT Head: Yes normal to inspection and Yes atraumatic Ears: hearing grossly normal bilaterally General nose exam: Normal external nose present Face and sinus: Yes normal facial exam Eyes General: appearance normal, both eyes and all related structures EOM: EOMs intact bilaterally Neck Neck: Yes normal visual inspection and Yes no meningeal signs Resp Effort & Inspection: normal respiratory effort and no respiratory distress Auscultation: clear to auscultation bilaterally, no crackles, no rhonchi and no wheezes Cardio Rate: regular rate Heart sounds: S1 normal heart sound present and S2 normal heart sound present GI Inspection: Yes normal to inspection Palpation (GI): Soft to palpation, Tenderness to palpation present (GI) in the RLQ; with no rebound tenderness, no guarding and not rigid General: Yes no CVA tenderness Back/Spine/Pelvis Back: no CVA tenderness Skin Rashes: no rashes Wounds: no wounds Neuro General: patient oriented x3, tone normal and no meningeal signs Cranial nerves: Yes CN's II-XII intact bilaterally Gait exam (Neuro): Normal gait present Extrem General: Yes normal to inspection and Yes no pedal edema Course Course Course Narrative: This is an RME: Additional HPI, ROS, PE not included below will be deferred to primary provider. RME assessment and note performed by: Kriss Askew PA-C This is a 26-usod-cis-female, with a hx of diabetes, who presents to the ER with complaints of R flank pain x 1 week. Reports that she was told that she has a kidney stone on thursday and was told to report to the ED if she develops pain. Reporting chills. She reports no nausea or vomiting. She reports urinary urgency. Further ER eval needed. Pt hypertensive in triage, likely d/t pain. Plan: Labs, EKG, CT abd/pelvis -1328-- labs reassuring -1713-- troponin x2 negative, LA unlikely CT abdomen pelvis wo IV con IMPRESSION: 1. Mild right hydroureteronephrosis secondary to a 3 mm UVJ calculus. 2. Punctate nonobstructing calculus at the upper pole of the right kidney. 3. Sigmoid diverticulosis without evidence of diverticulitis. -UA with RBCs. Not infected Results discussed with patient, reports symptomatic improvement since ED arrival. Results discussed, comfortable with plan of discharge with urology follow-up discussed worrisome signs and symptoms and strict return precautions, and when to return to the emergency department. They verbalized understanding and feel safe for discharge at this time. Medications Administered Discontinued Medications Generic Name Dose Route Start Last Admin Trade Name Sukhjinderq PRN Reason Stop Dose Admin Acetaminophen 975 mg 01/19/25 12:36 01/19/25 12:39 Acetaminophen 325 Mg Tablet PO 01/19/25 12:37 975 mg ONCE ONE Administration Sodium Chloride 1,000 mls @ 999 mls/hr 01/19/25 13:15 01/19/25 15:15 Ns IV 01/19/25 14:15 Infused .Q1H1M JANAY Infusion Ketorolac Tromethamine 15 mg 01/19/25 13:12 01/19/25 13:51 Ketorolac Tromethamine 15 Mg/Ml Vial IVPUSH 01/19/25 13:13 15 mg ONCE ONE Administration Tamsulosin HCl 0.4 mg 01/19/25 14:52 01/19/25 15:14 Tamsulosin Hcl 0.4 Mg Capsule PO 01/19/25 14:53 0.4 mg ONCE ONE Administration Medical Decision Making Medical Decision Making [facility] Narrative: 49-year-old [place]adorean-speaking female with a past medical history GERD, presenting to the ED complaining of right flank pain radiating to RLQ and substernal chest pain since 10:15AM. On exam vital signs stable, NAD, appears uncomfortable, lungs CTA, abdomen soft with RLQ tenderness, no CVAT. Concern for atypical ACS vs renal stone vs UTI / pyelo. Appendicitis on differential however lower at this time. Unlikely diverticulitis. PE/ DVT less likely with negative D-dimer on 01/12. unlikely dissection Plan: EKG, labs, UA, CT AP, IVF, pain control, re-evaluate Please refer to course for remaining clinical decision making, interpretation of labs/imaging results, and discussions with consultants and/or family members. Differential Diagnosis Differential Diagnoses: The differential diagnosis associated with the presentation includes As above Admission/Observation Consideration of admission/observation: Escalation of care including admission/observation considered Lab Data [facility] Lab Attestation statement: I reviewed the patient's lab results. 01/19/25 12:10 01/19/25 12:10 Labs: Lab Results 01/19/25 01/19/25 01/19/25 Range/Units 12:10 16:08 16:38 WBC 11.3 H (4.8-10.8) X10*3/uL RBC 4.53 (4.20-5.50) X10*6/uL Hgb 13.1 (12.0-16.0) g/dl Hct 39.7 (37.0-47.0) % MCV 87.6 (80.0-98.0) fL MCH 28.9 (27.0-33.0) pg MCHC 33.0 (31.0-35.0) g/dl RDW 13.6 (11.0-16.0) % Plt Count 300 (160-400) X10*3/uL MPV 10.0 (9.4-12.3) fL Immature Gran % (Auto) 0.6 H (0.0-0.4) % Neut % (Auto) 60.7 (45-73) % Lymph % (Auto) 33.0 (20-40) % Hitchcock % (Auto) 4.6 (2-11) % Eos % (Auto) 0.8 (0-4) % Baso % (Auto) 0.3 (0-2) % Lymph # (Auto) 3.7 (1.2-4.9) X10*3/uL [place]cock # (Auto) 0.5 (0.1-1.2) X10*3/uL Eos # (Auto) 0.1 (0.0-0.4) X10*3/uL Baso # (Auto) 0.0 (0.0-0.2) X10*3/uL Abs Immat Gran (auto) 0.07 H (0.00-0.03) X10*3/uL Absolute Neuts (auto) 6.8 (2.0-8.3) x10*3/uL Absolute Nucleated RBC 0.000 (0.0-0.012) X10*3/uL Nucleated RBC % (auto) 0.0 (0.0-0.2) /100WBC Sodium 140 (135-145) mmol/L Potassium 3.6 (3.3-5.1) mmol/L Chloride 106 (96-108) mmol/L Carbon Dioxide 26 (22-29) mmol/L Anion Gap 12 (12-20) BUN 18 H (9-16) mg/dL Creatinine 0.85 (0.5-1.4) mg/dL Estim Creat Clear Calc 91.1 Estimated GFR > 60 Random Glucose 177 H (60-115) mg/dL Calcium 9.5 (8.4-10.2) mg/dL Magnesium 2.0 (1.6-2.6) mg/dL Total Bilirubin 0.5 (0.0-1.0) mg/dL Direct Bilirubin 0.2 (0.0-0.5) mg/dL AST 26 (5-31) U/L ALT 32 H (0-31) U/L Alkaline Phosphatase 76 (39-117) U/L Troponin I High Sens < 2.7 < 2.7 (<3.5-17.0) ng/L Total Protein 8.2 H (6.5-8.0) g/dL Albumin 4.4 (3.5-5.0) g/dL Lipase 24 (8-78) U/L Beta HCG, Quant < 2 mIU/mL Urine Color Yellow Urine Appearance Clear Urine pH 6.5 (5.0-9.0) Ur Specific [place] 1.015 (1.005-1.025) Urine Protein Negative (Neg-Trace) mg/dL Urine Glucose (UA) Negative (Negative) mg/dL Urine Ketones Negative (Negative) mg/dL Urine Blood Moderate (2+) H (Negative) Urine Nitrite Negative (Negative) Ur Leukocyte Esterase Trace H (Negative) Urine RBC 11-20 H (0-2) /HPF Urine WBC 0-5 (0-5) /HPF Ur Squamous Epith Cells 0-2 (0-2) /HPF Urine Bacteria None Seen (None Seen) Hyaline Casts 0-2 (0-2) /LPF Independent Interpretation I performed an independent interpretation of an: EKG and CT Scan Radiology Impression Discussion of test interpretation with radiology: I have reviewed the radiologist's reading. External Record Review External record reviewed: Inpatient record, Office record, Outpatient record, Prior outpatient labs, Prior outpatient radiology, Primary care record and Outside ED record Tests considered The following testing was considered but not selected: As above Prescription Management I considered prescription management with: Pain Medication Chronic Conditions Patient?s care impacted by: Other Discharge Plan Discharge Clinical Impression: Hydroureteronephrosis, Calculus of ureterovesical junction (UVJ) Patient Disposition: Home, Self-Care Instructions: Hydronephrosis (ED), Ureteral Stones (ED) Additional Instructions: you have a 3 mm UVJ stone with some hydronephrosis This stone is small enough where it should pass on its own YOU NEED TO FOLLOW-UP WITH UROLOGY. CALL TO MAKE AN APPOINTMENT naproxen as an anti-inflammatory / pain medication, please take with food. Percocet as an opiate pain medication, take only when pain is severe for the next 3 days. Be aware this has Tylenol mixed in, do not exceed 4 g of Tylenol in 1 day Flomax will help dilate your ureter If her pain persists, worsens, becomes unbearable, you persistent nausea/ vomiting, you are unable to urinate, have fever return to the ED immediately Prescriptions: New tamsulosin [Flomax] 0.4 mg capsule 0.4 mg PO DAILY Qty: 14 0RF oxycodone-acetaminophen [Percocet] 5-325 mg tablet 1 tab PO Q8H PRN (Reason: pain (scale score 7-10)) 3 Days Qty: 9 0RF Rx Instructions: Partial Fill upon patient request. No Action cetirizine 10 mg tablet 1 tab PO DAILY topiramate 50 mg tablet 1 tab PO DAILY tramadol 50 mg tablet 50 mg PO Q6H PRN (Reason: pain) Qty: 20 0RF ondansetron HCl 4 mg tablet 4 mg PO Q6H PRN (Reason: nausea and vomiting) Qty: 10 0RF ketoconazole 2 % shampoo 1 appl topical 2XW buspirone 30 mg tablet 30 mg PO BID ferrous gluconate 324 mg (38 mg iron) tablet 324 mg PO QAM Saline Nasal 0.65 % aerosol,spray 1 - 2 spray intranasal Q2-3H PRN (Reason: congestion) lidocaine 5 % adhesive patch,medicated 1 patch transdermal Q3D PRN (Reason: pain) diphenhydramine HCl [Banophen] 25 mg capsule 50 mg PO Q4-6H PRN (Reason: Anxiety) [id number]-cnfrqnbhlnvkc-fptw 50-325-40 mg tablet 1 - 2 tab PO Q6-8H PRN (Reason: Migraine Headache) acetaminophen 650 mg tablet extended release 650 mg PO Q8H PRN (Reason: mild pain) clonazepam 1 mg tablet 1.5 mg PO BEDTIME lisinopril 10 mg tablet 10 mg PO DAILY fluticasone propionate 50 mcg/actuation spray,suspension 2 spray intranasal DAILY citalopram 10 mg tablet 20 mg PO DAILY gabapentin 100 mg capsule 200 mg PO TID Qty: 180 2RF cyclobenzaprine 5 mg tablet 5 mg PO TID tacrolimus 0.1 % ointment 1 appl topical DIRECTED venlafaxine 150 mg capsule,extended release 24hr 150 mg PO QAM clindamycin phosphate 1 % solution 1 appl topical DAILY dicyclomine 20 mg tablet 20 mg PO .COMPLEX Rx Instructions: 20 mg orally before breakfast, lunch, and dinner; omeprazole 20 mg capsule,delayed release(DR/EC) 20 mg PO QAM hydrocortisone 2.5 % ointment 1 appl topical BID Referrals: [facility] [place] [facility] [Provider Group] - 5 days Gerry Lopez MD [Primary Care Provider] - Print Language: Salvadorean
[2025-01-19 12:14] LABS: MANUAL DIFF FLAG NO
[2025-01-19 12:23] LABS: Basophils Percent Auto 0.3 % (0-2); Eosinophils Absolute Auto 0.1 X10*3/uL (0.0-0.4); Eosinophils Percent Auto 0.8 % (0-4); Hematocrit 39.7 % (37.0-47.0); Hemoglobin 13.1 g/dl (12.0-16.0); Imm Gran Abs Auto 0.07 X10*3/uL (0.00-0.03); Imm Gran Pct Auto 0.6 % (0.0-0.4); Lymphocytes Absolute Auto 3.7 X10*3/uL (1.2-4.9); Mean Corpuscular Hemoglobin 28.9 pg (27.0-33.0); Mean Corpuscular Volume 87.6 fL (80.0-98.0); Monocytes Absolute Auto 0.5 X10*3/uL (0.1-1.2); Monocytes Percent Auto 4.6 % (2-11); Neutrophils Absolute Auto 6.8 x10*3/uL (2.0-8.3); Neutrophils Percent Auto 60.7 % (45-73); Platelet Count 300 X10*3/uL (160-400); Red Blood Count 4.53 X10*6/uL (4.20-5.50); Red Cell Distribution Width 13.6 % (11.0-16.0); White Blood Count 11.3 X10*3/uL (4.8-10.8)
[2025-01-19] MEDS: Acetaminophen 325 MG TABLET 975 MG PO (12:39)
[2025-01-19 12:40] LABS: Alanine Aminotransferase 32 U/L (0-31); Albumin Level 4.4 g/dL (3.5-5.0); Alkaline Phosphatase 76 U/L (39-117); Anion Gap 12 (12-20); Aspartate Amino Transferase 26 U/L (5-31); Bilirubin Direct 0.2 mg/dL (0.0-0.5); Bilirubin Total 0.5 mg/dL (0.0-1.0); Blood Urea Nitrogen 18 mg/dL (9-16); Calcium 9.5 mg/dL (8.4-10.2); Carbon Dioxide 26 mmol/L (22-29); Chloride 106 mmol/L (96-108); Creatinine Clr Calc Pharmacy 91.1; Estimated Glomerular Filt Rate > 60; Glucose Random 177 mg/dL (60-115); HCG Quantitative < 2 mIU/mL; Potassium 3.6 mmol/L (3.3-5.1); Sodium 140 mmol/L (135-145); Total Protein 8.2 g/dL (6.5-8.0)
--- NOTE | 2025-01-19 13:27 | ECG_ITS ---
Test Reason : abd pain Blood Pressure : */* mmHG Vent. Rate : 50 BPM Atrial Rate : 50 BPM P-R Int : 132 ms QRS Dur : 78 ms QT Int : 448 ms P-R-T Axes : 62 42 53 degrees QTcB Int : 408 ms Sinus bradycardia Otherwise normal ECG When compared with ECG of 12-Jan-2025 11:41, No significant change was found Referred By: Billie Do Electronically Signed By: Ezra Andersen
[2025-01-19 13:33] LABS: Lipase 24 U/L (8-78)
[2025-01-19 13:51] LABS: Troponin-I High Sensitivity < 2.7 ng/L (<3.5-17.0)
[2025-01-19] MEDS: Ketorolac Tromethamine 15 MG/ML VIAL IVPUSH (13:51)
[2025-01-19] MEDS: 0.9 % Sodium Chloride 1,000 ML 999 ML IV (13:53)
[2025-01-19 15:10] VITALS: BP 134/76; PULSE 53; RESP 16; O2SAT 99
[2025-01-19] MEDS: Tamsulosin HCL 0.4 MG CAPSULE PO (15:14)
[2025-01-19 16:34] LABS: Troponin-I High Sensitivity < 2.7 ng/L (<3.5-17.0)
[2025-01-19 16:52] LABS: Appearance Urine Clear; Color Urine Yellow; Glucose Urine UA Negative (Negative); Leukocyte Esterase Urine Trace (Negative); Nitrite Urine Negative (Negative); PH 6.5 (5.0-9.0); Specific Gravity - Urine 1.015 (1.005-1.025); UMIC TRIGGER UACC YES; Urine Blood Moderate (2+) (Negative); Urine Ketones Negative (Negative); Urine Protein Negative (Neg-Trace)
[2025-01-19 16:57] LABS: Bacteria Urine None Seen (None Seen); Hyaline Casts Urine 0-2 /LPF (0-2); Squamous Epithelial Cell Urine 0-2 /HPF (0-2); WBC Urine 0-5 /HPF (0-5)
[2025-01-19 17:24] VITALS: BP 120/64; PULSE 60; RESP 16; TEMP 37.2; O2SAT 100
[2025-01-19 17:48] VITALS: BP 120/64; PULSE 60; RESP 16; TEMP 37.2; O2SAT 100
== END 2025-01-19 17:49 | disposition home or self-care (01) ==
PROVIDERS: Physician Assistant; Physician Assistant Medical; Emergency Provider Emergency Medicine; PCP Internal Medicine
DX: N13.2 Hydronephrosis with renal and ureteral calculous obstruction (principal); Z79.899 Other long term (current) drug therapy
CPT/HCPCS: 36415; 74176; 80048; 80076; 81001; 83690; 83735; 84484; 84702; 85025; 93005; 96361; 96374; 99284; J1885

== ENCOUNTER → 2025-01-19 12:03 | Outpatient (BNV) | payer MEDICAID, SELFPAY | PROVIDERS: Emergency Provider Emergency Medicine; PCP Internal Medicine; Visit Provider Radiology Diagnostic Radiology | DX: R10.11 Right upper quadrant pain (principal) | CPT/HCPCS: 74176 ==

== ENCOUNTER → 2025-01-19 13:27 | Outpatient (BNV) | payer MEDICAID, SELFPAY | PROVIDERS: Emergency Provider Emergency Medicine; PCP Internal Medicine; Visit Provider Internal Medicine Cardiovascular Disease | DX: R00.1 Bradycardia, unspecified (principal) | CPT/HCPCS: 93010 ==

== ENCOUNTER 2025-02-03 12:55 | Outpatient (AMB) | payer MEDICAID, SELFPAY ==
--- NOTE | 2025-02-03 13:01 | A.OFFVIS_ITS ---
Vital Signs 02/03/25 13:02 Height 5 ft 5 in Weight 205 lb 7.533 oz BMI 34.2 BP 118/68 Blood Pressure Location Lt brachial Position Sitting Pulse 73 Pulse Source Pulse Oximeter Pulse Oximetry (%) 98 Oxygen Delivery Method Room Air Intake Visit Reasons: FMS/ US follow up Allergies penicillin G [PENICILLIN G] Allergy (Severe, Verified 02/03/25 13:06) ANAPHYLAXIS shrimp Allergy (Severe, Verified 02/03/25 13:06) Anaphylaxis Penicillins [PCN] Allergy (Verified 02/03/25 13:06) Unknown Medication List - Last Reconciled 02/03/25 by Denise Turcios MD acetaminophen ER 650 mg PO Q8H PRN buspirone 30 mg PO BID [id number]-[id number] 50-325-40 mg 1 - 2 tabs PO Q6-8H PRN celecoxib 100 mg PO BID cetirizine 1 tab PO DAILY cholecalciferol (vitamin D3) 10 mcg PO DAILY citalopram 20 mg PO DAILY clindamycin phosphate 1% 1 appl topical DAILY clonazepam 1.5 mg PO BEDTIME cyclobenzaprine 5 mg PO TID dicyclomine 20 mg orally before breakfast, lunch, and dinner; diphenhydramine HCl (Banophen) 50 mg PO Q4-6H PRN fluticasone propionate 50 mcg/actuation 2 sprays intranasal DAILY gabapentin 200 mg (2 x 100 mg) PO TID hydrocortisone 2.5% 1 appl topical BID ketoconazole 2% 1 appl topical 2XW lidocaine 5% 1 patch transdermal Q3D PRN lisinopril 10 mg PO DAILY metformin 500 mg PO DAILY naproxen 500 mg PO BID PRN 10 days omeprazole 20 mg PO BID sodium chloride 0.65% (Saline Nasal) 1 - 2 sprays intranasal Q2-3H PRN tacrolimus 0.1% 1 appl topical DIRECTED tamsulosin (Flomax) 0.4 mg PO DAILY topiramate 1 tab PO DAILY tramadol 50 mg PO Q6H PRN venlafaxine ER 150 mg PO QAM HPI Comments Details: Patient is a 49-year-old female with GERD, polyarticular OA, and fibromyagia here today for follow up Interval History: Patient last seen 11/16/[address] Mathias. At that time she was complaining of tightness in her hands to go into and elbow pain and was there for an urgent visit complain of bilateral hand pain. 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 She was sent for ultrasound of hands to evaluate for synovitis/tenosynovitis. Hand ultrasound done and then we including the left hand and limited left wrist. There was no evidence of inflammatory arthritis at that time. Today she is here for follow up Patient continues to complain of whole-body pain specifically today she is complaining of back pain and hand pain. Rheumatologic History: Fibromyalgia and OA Current Rheumatology Medication(s): Tramadol 50mg q6 prn Gabapentin 200mg TID [facility] Medical History (Updated 02/03/25 @ 13:33 by Denise Turcios MD) Fibromyalgia Epidermal cyst Pes cavus of both feet Allergies Headache GERD (gastroesophageal reflux disease) Surgical History History of removal of cyst (~06/27/24) History of shoulder surgery History of tubal ligation Hx of tonsillectomy Family History Mother Arthritis Father Diabetes Social History Household Members: Significant Other Are you a primary resident care assistant to a significant other at home: No Do you presently have visiting nurse or other home services: No Alcohol intake: former Patient Tobacco Use Status: Former Tobacco user Current occupational status: employed and unemployed Review of Systems Const Details: Review of Systems Constitutional: Denies fever, chills, weight loss ENT: Denies vision changes, eye pain or eye redness, dental caries, dry mouth GI: Denies nausea, vomiting, diarrhea, abdominal pain, change in BM Pulm: Denies SOB, JOSUE, hemoptysis, wheezing Cards: Denies chest pain, palpitations Skin: Denies Raynaud's, rash, nail changes, photosensitivity, 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 Well appearing and in no apparent painful distress HEENT Conjunctiva and sclera clear. ?Pupils equal round and reactive to light. ?No lymphadenopathy. ? CHEST/RESPIRATORY SYSTEM Normal respiratory effort and able to speak in complete sentences. ?Clear to auscultation bilaterally. ?No crackles, rales, rhonchi, wheezes heard. CARDIAC SYSTEM Regular rate and rhythm. ?S1 and S2 heard no murmurs. ?Radial pulses intact bilaterally MSK Hands: ?Able to make a fist bilaterally. Tenderness to palpation of all areas of the hands. No evidence of synovitis Wrists: ?Full range of motion at the wrists. Tenderness to palpation of the wrists and distal forearm Elbows: Full range of motion. No swelling noted Shoulders: Decreased range of motion on the right with tenderness to palpation of the AC joint. Decrease range of motion of the left but better than the right Hip bursa: Tenderness to palpation Knees: ?Full range of motion. Tender points:?Tenderness to palpation of the bilateral trapezius, supraspinatus, greater trochanters, anterior costochondral junctions, bilateral gluteal areas, bilateral suboccipital muscle insertions SKIN Skin intact without rashes. Results Reviewed Results Reviewed: Laboratory Tests 01/19/25 12:10 WBC 11.3 H RBC 4.53 Hgb 13.1 Hct 39.7 Plt Count 300 Sodium 140 Potassium 3.6 Chloride 106 Carbon Dioxide 26 BUN 18 H Creatinine 0.85 Magnesium 2.0 Total Bilirubin 0.5 Direct Bilirubin 0.2 AST 26 ALT 32 H Alkaline Phosphatase 76 Immunology labs 06/24/23 07/13/23 10/20/24 09:45 10:50 10:19 Cycl Citrul Peptide IgG <16 ARIANA Screen NEGATIVE Sm (Muhammad) Antibody <1.0 NEG SM/SALESPERSON MEN'S AND BOYS' CLOTHING IgG Antibody <1.0 NEG Double Strand DNA Ab <1 Complement C3 152 Complement C4 26 Knee MRI 04/2024 FINDINGS: MENISCI: Medial Meniscus: Intact Lateral Meniscus: Intact LIGAMENTS: Cruciate: Intact Collateral: Intact EXTENSOR MECHANISM: Intact ARTICULAR CARTILAGE/BONE: Patellofemoral Compartment: Normal Medial Compartment: Mild cartilage signal heterogeneity and surface irregularity along the lateral aspect of the weightbearing femoral condyle. Lateral Compartment: Minimal cartilage irregularity of the tibia posteriorly. JOINT FLUID AND BURSAE: Trace joint effusion. IMPRESSION: 1. No meniscal tear. 2. Mild medial and lateral compartment osteoarthritis with a trace joint effusion. Assessment & Plan Assessment & Plan (1) Generalized osteoarthritis: Code(s): M15.9 - Polyosteoarthritis, unspecified Category: Medical Plan: #Generalized OA Patient is a 49-year-old female with generalized osteoarthritis here today for follow up. Had ultrasound of her hands 01/06/2025 which showed no evidence inflammatory disease. Recommended topical diclofenac to be used 4 times a day Plan - Topical diclofenac 1% 4 times a day - RTC 1 year or sooner (2) Lumbar facet arthropathy: Code(s): M47.816 - Spondylosis without myelopathy or radiculopathy, lumbar region Category: Medical Plan: #Low back pain Patient with low back pain with imaging consistent with degenerative disease of the spine. We will send to pain management and physical therapy Plan - Physical therapy referral - Pain management referral (3) ARIANA positive: Code(s): R76.8 - Other specified abnormal immunological findings in serum Category: Medical Plan: #Positive ARIANA The presence of antinuclear antibodies (ARIANA) is mainly associated with connective tissue diseases (CTD). ?However, their presence is found in healthy people especially in women and patients >65. ?In healthy individuals, the frequency of ARIANA has been shown to be 31.7% of individuals at 1:40 serum dilution, 13.3% at 1:80, 5.0% at 1:160, and 3.3% at 1:320 (2). Some drugs and xenobiotics are also important for the development of ARIANA (hydralazine, hydrochlorothiazide, minocycline, terbinafine, ciprofloxacin, furosemide, omeprazole). Moreover, the deficiency of vitamin D in the body of patients correlates with occurrence of these antibodies (1). At this time there is low suspicion for a connective tissue disease. ? 1. Estefani?lance Yeung, Nadira Guerra. Antinuclear antibodies in healthy people and non-rheumatic diseases - diagnostic and clinical implications. Reumatologia. 2018;56(4):243-248. doi: 10.5114/reum.2018.56734. Epub 2017Jul 02. PMID: 88090308; PMCID: [id number]. 2. Byrd EM, Larry TE, Derrell JS, Franklin B, Josselin R, Ani MJ, Rahat T, Ashu JA, Elfego JR, Dao RG, Lemuel RN, Clive JS, Kristina NF, Estefania RJ, Sabrina Y, Yisel A, Uriel MR, Elier COLIN. Range of antinuclear antibodies in healthy individuals. Arthritis Rheum. 1996;40(9):1601-11. doi: 10.1002/art.0210938434. PMID: 0677170. (4) Fibromyalgia: Code(s): M79.7 - Fibromyalgia Category: Medical Plan: #Fibromyalgia Patient with fibromyalgia who continues to have widespread pain Ideally I would like to try other medications but patient has over 40 medications that she is currently taking and I do not want to contribute to her polypharmacy We will continue to manage her fibromyalgia conservatively with physical therapy and stretches Plan I spent 22 minutes reviewing the record and labs, taking a history, examining the patient, discussing the treatment plan, ordering diagnostic work up and documenting in the medical record Orders: Orders PT Evaluation and Treatment Today M47.816 - Spondylosis without myelopathy or radiculopathy, lumbar region Referrals Pain Management Referral M47.816 - Spondylosis without myelopathy or radiculopathy, lumbar region Medications: Refilled tramadol 50 mg PO Q6H PRN 20 tabs 0RF pain Coding Level of Care Code Est Pt Level 3 (31221) Diagnoses Generalized osteoarthritis M15.9 Lumbar facet arthropathy M47.816 ARIANA positive R76.8 Fibromyalgia M79.7
[2025-02-03 13:02] VITALS: BP 118/68; PULSE 73; O2SAT 98; BMI 34.2
--- NOTE | 2025-02-03 13:02 | MHC.OFFVIS ---
Vital Signs 02/03/25 13:02 Height 5 ft 5 in Weight 205 lb 7.533 oz BMI 34.2 BP 118/68 Blood Pressure Location Lt brachial Position Sitting Pulse 73 Pulse Source Pulse Oximeter Pulse Oximetry (%) 98 Oxygen Delivery Method Room Air Intake Visit Reasons: FMS/ US follow up Intake Note: Patient last seen by Doctor Cristino Mathias on 11/16/24. Presents today for FMS/US follow up. Russian Language Professor Name: [id number] Allergies penicillin G [PENICILLIN G] Allergy (Severe, Verified 02/03/25 13:06) ANAPHYLAXIS shrimp Allergy (Severe, Verified 02/03/25 13:06) Anaphylaxis Penicillins [PCN] Allergy (Verified 02/03/25 13:06) Unknown [facility] Medical History Epidermal cyst Pes cavus of both feet Allergies Headache GERD (gastroesophageal reflux disease) Surgical History History of removal of cyst (~06/27/24) History of shoulder surgery History of tubal ligation Hx of tonsillectomy Family History Mother Arthritis Father Diabetes Social History Household Members: Significant Other Are you a primary respiratory care practitioner to a significant other at home: No Do you presently have visiting nurse or other home services: No Alcohol intake: former Patient Tobacco Use Status: Former Tobacco user 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
--- OUTSIDE RECORDS SUMMARY | 2025-02-03 14:45 | XMS_ITS | Encounter Summary ---
Author Organization [employer] Address [address] [place] [address] Care Team Providers Care Soil Fertility Extension Specialist Name Role Phone Gerry Echavarria MD Primary Care Provide r Reason for Visit * Reason Comments Med Refill Encounter Details Date Type Department Care Team ([facility] st Contact Info) Description 09/10/2023 Refill [facility] [address], [place] [phone] Wendie Sandoval, [facility] [address] [place] [address] Social History Tobacco Use Types Packs/Day Years [...] 04/18/2025 11:15 AM EDT Office Visit [facility] [address] [place] [address] Gerry Echavarria MD [address] [place] [address] documented as of this encounter Goals Goal Patient Goal Type Associated Problems Recent Progress Patient-Stated? Author Blood Pressure < 140/90 Blood Pressure Essential hypertension 125/69(2024 3:20 PM EDT) No Angel Emmanuel, Roney Note: BP [...] documented as of this encounter Care Teams Soil Fertility Extension Specialist Relationship Specialty Start Date End Date Gerry Echavarria MD [address] [place] [address] PCP - General Internal Medicine 07/26/14 Theron New Bilingual Teacher AideBehavioral Sciences Instructor 01/08/24 [facility] 09/28/24 documented as of this encounter
--- OUTSIDE RECORDS SUMMARY | 2025-02-03 14:45 | XMS_ITS | Encounter Summary ---
Author Organization [employer] Address [address] [place] [address] Care Team Providers Care Infection Control Rn Name Role Phone Gerry Echavarria MD Primary Care Provide r Reason for Visit * Reason Comments Med Refill Encounter Details Date Type Department Care Team ([facility] st Contact Info) Description 08/18/2023 Refill [facility] [address] [place], [place] [phone] Wendie Sandoval, [facility] [address] [place] [address] Social History Tobacco Use Types Packs/Day Years [...] EDT Office Visit [facility] [address] [place] [address] Gerry Echavarria MD [address] [place] [address] documented as of this encounter Goals Goal [...] documented as of this encounter Care Teams Infection Control Rn Relationship Specialty Start Date End Date Gerry Echavarria MD [address] [place] [address] PCP - General Internal Medicine 07/26/14 Theron New Dog Daycare ProviderSupervisor Calibration 01/08/24 [facility] 09/28/24 documented as of this encounter
--- OUTSIDE RECORDS SUMMARY | 2025-02-03 14:45 | XMS_ITS | Clinical Summary ---
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 (01/19/2025 12:10 PM EDT) Only the most recent of3 resultswithin the time period is included. White Blood Count 11.3(H) 4.8 - 10.8 X10*3/uL [facility] Red Blood Count 4.53 4.20 - 5.50 X10*6/uL [facility] Hemoglobin 13.1 12.0 - 16.0 g/dl [facility] Hematocrit 39.7 37.0 - 47.0 % [facility] Mean Corpuscular Volume 87.6 80.0 - 98.0 fL [facility] Mean Corpuscular Hemoglobin 28.9 27.0 - 33.0 pg [facility] Mean Corpuscular HGB Conc 33.0 31.0 - 35.0 g/dl [facility] Red Cell Distribution Width 13.6 11.0 - 16.0 % [facility] Platelet Count 300 160 - 400 X10*3/uL [facility] Mean Platelet Volume 10.0 9.4 - 12.3 fL [facility] Neutrophils Percent Auto 60.7 45 - 73 % [facility] Imm Gran Pct Auto 0.6(H) 0.0 - 0.4 % [facility] Lymphocytes Percent Auto 33.0 20 - 40 % [facility] Monocytes Percent Auto 4.6 2 - 11 % [facility] Eosinophils Percent Auto 0.8 0 - 4 % [facility] Basophils Percent Auto 0.3 0 - 2 % [facility] NRBC Pct Auto 0.0 0.0 - 0.2 /100WBC [facility] Neutrophils Absolute Auto 6.8 2.0 - 8.3 x10*3/uL [facility] Imm Gran Abs Auto 0.07(H) 0.00 - 0.03 X10*3/uL [facility] Lymphocytes Absolute Auto 3.7 1.2 - 4.9 X10*3/uL [facility] Monocytes Absolute Auto 0.5 0.1 - 1.2 X10*3/uL [facility] Eosinophils Absolute Auto 0.1 0.0 - 0.4 X10*3/uL [facility] Basophils Absolute Auto 0.0 0.0 - 0.2 X10*3/uL [facility] NRBC Abs Auto 0.000 0.0 - 0.012 X10*3/uL [facility] 01/19/2025 12:1 0 PM EDT 01/19/2025 12:13 PM EDT us Generic External Data Provider LAB BLOOD ORDERAB LES Final Result Performing Organization Address City/State/[facility] Co de Phone Number [facility] [address] [place] [address] [phone] * hCG, Total, Quantitative (01/19/2025 12:10 PM EDT) HCG Quantitative <2 mIU/mL [facility] Comment:Weeks post LMP Appro ximate hCG(Last Menstrual Period) Range (mIU/ml)3 - 4 weeks 9 - 1304 - 5 weeks 75 - 2,6005 - 6 weeks 850 - 20,8006 - 7 weeks 4000 - 100,2006 - 12 weeks 11,500 - 289,31595 - 16 weeks 18,300 - 137,30245 - 29 weeks (2nd trimester) 1,400 - 53,93280 - 41 weeks (3rd trimester) 940 - 60,000The [place] B- hCG assay is used for the early detection ofpregnancy; it cannot be used to diagnose any conditionunrelated to . If a B-hCG level is not supportedby the clinical evidence, results should be confirmed by analternative method (qualitative urine hCG, for example). 01/19/2025 12:1 0 PM EDT 01/19/2025 12:13 PM EDT Generic External Data Provider LAB BLOOD ORDERAB LES Final Result Performing Organization Address [facility] de Phone Number [facility] [address] [place] [address] [phone] * Magnesium (01/19/2025 12:10 PM EDT) Only the most recent of2 resultswithin the time period is included. Magnesium 2.0 1.6 - 2.6 mg/dL [facility] 01/19/2025 12:1 0 PM EDT 01/19/2025 12:13 PM EDT Generic External Data Provider LAB BLOOD ORDERAB LES Final Result Performing Organization Address [facility] de Phone Number [facility] [address] [place] [address] [phone] * Lipase (01/19/2025 12:10 PM EDT) Lipase 24 8 - 78 U/L [facility] 01/19/2025 12:1 0 PM EDT 01/19/2025 12:13 PM EDT Generic External Data Provider LAB BLOOD ORDERAB LES Final Result Performing Organization Address [facility] Co de Phone Number [facility] [address] [place] [address] [phone] * (ABNORMAL) Hepatic Function Panel (01/19/2025 12:10 PM EDT) Only the most recent of2 resultswithin the time period is included. Bilirubin, Total 0.5 0.0 - 1.0 mg/dL [facility] Bilirubin, Direct 0.2 0.0 - 0.5 mg/dL [facility] Aspartate Amino Transferase 26 5 - 31 U/L [facility] Alanine Aminotransferase 32(H) 0 - 31 U/L [facility] Total Protein 8.2(H) 6.5 - 8.0 g/dL [facility] Albumin Level 4.4 3.5 - 5.0 g/dL [facility] Alkaline Phosphatase 76 39 - 117 U/L [facility] 01/19/2025 12:1 0 PM EDT 01/19/2025 12:13 PM EDT us Generic External Data Provider LAB BLOOD ORDERAB LES Final Result [facility] [address] [place] [address] [phone] * (ABNORMAL) Basic Metabolic Panel (01/19/2025 12:10 PM EDT) Only the most recent of2 resultswithin the time period is included. Pathologist [facility] Sodium 140 135 - 145 mmol/L [facility] Potassium 3.6 3.3 - 5.1 mmol/L [facility] Chloride 106 96 - 108 mmol/L [facility] Carbon Dioxide 26 22 - 29 mmol/L [facility] Anion Gap 12 12 - 20 [facility] Urea Nitrogen (BUN) 18(H) 9 - 16 mg/dL [facility] Creatinine, Serum 0.85 0.5 - 1.4 mg/dL [facility] Creatinine Clr Calc Pharmacy 91.1 [facility] Comment:Provided height and weight: 165.1 cm,92.9 kg.eGFR (calculated from the MDRD study equation) and eCrCl(calculated from the Cockcroft-Gault equation) are based ondifferent parameters and may not yield comparable results.If eCrCl result is absurd, please check patient'sheight/weight. Estimated Glomerular Filt Rate >60 [facility] Comment:Chronic Kidney Disea se: Estimated GFR < 60 mL/min/1.97d4Kgkfsg Kidney Disease: Estimated GFR < 15 mL/min/1.73m2 Glucose 177(H) 60 - 115 mg/dL [facility] Calcium 9.5 8.4 - 10.2 mg/dL [facility] 01/19/2025 12:1 0 PM EDT 01/19/2025 12:13 PM EDT us Generic External Data Provider LAB BLOOD ORDERAB LES Final Result Performing Organization Address [facility]/ZIP Co de Phone Number [facility] [address] [place] [address] [phone] * TSH with Reflex to Free T4 (01/19/2025 10:23 AM EDT) Only the most recent of2 resultswithin the time period is included. TSH reflex Free T4 3.67 0.32 - 4.0 uIU/mL [facility] Blood Venous blood specimen / Unknown 01/19/2025 10:23 AM EDT 01/19/2025 11:21 AM EDT us Gerry Whitehead MD LAB BLOOD ORDERABLES Final Result Performing Organization Address City/[facility]/ZIP Co de Phone Number [facility] [address] [place] [phone] * Albumin, Random Urine W/Creatinine (01/19/2025 10:23 AM EDT) Creatinine, Urine 258.90 mg/dL [facility] Microalbumin Urine 64.0 mg/L H [facility] Microalbum Creatinine Ratio Ur 24.7 <30 ug/mg cr [facility] Comment:Albumin/Creatinine R atio Reference Ranges: Normal: < 30 ug/mg creatinine Microalbuminuria: 30 - 300 ug/mg creatinineClinical Albuminuria: > 300 ug/mg creatinine Urine (Urine, Random) 01/19/2025 10:23 AM EDT 01/19/2025 11:59 AM EDT us Gerry Whitehead MD LAB URINE ORDERABLES Final Result [facility] [address] [place] [phone] * (ABNORMAL) Comprehensive Metabolic Panel (01/19/2025 10:23 AM EDT) Sodium 141 135 - 145 mmol/L [facility] Potassium 4.0 3.3 - 5.1 mmol/L [facility] Chloride 107 96 - 108 mmol/L [facility] Carbon Dioxide 28 22 - 29 mmol/L [facility] Anion Gap 10(L) 12 - 20 [facility] Urea Nitrogen (BUN) 18(H) 9 - 16 mg/dL [facility] Creatinine, Serum 0.82 0.5 - 1.4 mg/dL [facility] Estimated Glomerular Filt Rate >60 [facility] Comment:Chronic Kidney Disea se: Estimated GFR < 60 mL/min/1.10s4Todlew Kidney Disease: Estimated GFR < 15 mL/min/1.73m2 Glucose 96 60 - 115 mg/dL [facility] Calcium 9.2 8.4 - 10.2 mg/dL [facility] Bilirubin, Total 0.5 0.0 - 1.0 mg/dL [facility] Aspartate Amino Transferase 23 5 - 31 U/L [facility] Alanine Aminotransferase 30 0 - 31 U/L [facility] Total Protein 7.7 6.5 - 8.0 g/dL [facility] Albumin Level 4.2 3.5 - 5.0 g/dL [facility] Alkaline Phosphatase 66 39 - 117 U/L [facility] Blood Venous blood specimen / Unknown 01/19/2025 10:23 AM EDT 01/19/2025 11:21 AM EDT Gerry Whitehead MD LAB BLOOD ORDERABLES Final Result Performing Organization Address [facility] Co de Phone Number [facility] [address] [place] [address] [phone] * (ABNORMAL) POCT urinalysis dipstick manually resulted (01/17/2025 4:05 PM EDT) Pathologist [facility] Color, UA Light Yellow Clarity, UA Clear Glucose, UA Negative Bilirubin, UA Negative Ketones, UA Negative Spec Grav, UA 1.025 Blood, UA Positive(A) Negative, None Detected pH, UA 6.5 Protein, UA Negative Urobilinogen, UA 0.2 Leukocytes, UA Negative Negative, Rare, Trace Nitrite, UA Negative Negative, None Detected Appearance, UA clear QC Media Lot # [id number] Lot# Expiration Date Urine 01/17/2025 4:05 PM EDT Krystina Haji MD POINT OF CARE TEST ENTER/EDIT OR DERABLES Final Result * Culture, Urine, Routine (01/17/2025 3:58 PM EDT) Urine Urine specimen obtained by clean catch procedure / Unknown 01/17/2025 3:58 PM EDT 01/17/2025 6:33 PM EDT Comment:UACC Narrative [facility] - 01/19/2025 11:46 AM EDT Lactobacillus species Quant 10,000 to 50,000 cfu/mL Specimen Source: Urine clean catch Krystina Haji MD LAB MICROBIOLOGY - GENERAL ORDER BERNA Edited Result - Final Performing Organization Address [facility]/ZIP Co de Phone Number [facility] [address] [place] [address] [phone] * D Dimer High Sensitivity (01/12/2025 3:45 PM EDT) Pathologist [facility] D Dimer High Sensitivity 165 NG/ML [facility] Comment:D-DIMER HS REFERENCE RANGENote: Our [...] Provider LAB BLOOD ORDERAB LES Final Result [facility] [address] [place] [address] [phone] * SARS-CoV-2 RNA, Influenza A/B, and RSV RNA, Ql NAAT (01/12/2025 12:10 PM EDT) [facility] Influenza A PCR NEGATIVE Negative [facility] Influenza B PCR NEGATIVE Negative [facility] Resp Syncy Virus RNA Qual PCR NEGATIVE Negative [facility] SARS COV2 PCR NEGATIVE Negative [facility] Comment:All test results mus t be [...] use by authorized laboratories.Testing performed on the [employer] GeneXpert utilizingreal-time RT-PCR.All SARS CoV2 and positive influenza A/B results arereported to [facility]. 01/12/2025 12:1 0 PM EDT 01/12/2025 12:18 PM EDT us Generic External Data Provider LAB MICROBIOLOGY - GENERAL ORDERABLES Final Result [facility] [address] [place] [phone] * XR Chest 2 Views (01/12/2025 11:56 AM EDT) Anatomical Region Laterality Modality Chest Radiographic Angy ging 01/12/2025 11:5 6 AM EDT Narrative 01/12/2025 12:47 PM EDT ? [facility] ?[address] ?[place] [address] ?XRay Report ? Signed ? Patient: Julia Smith ?MR#: ?? [id number] ? : 1975 ?Acct:[id number] ? Age/Sex: 49 / F ?ADM Date: 01/12/25 ? Loc: HO.ED ? Attending Dr: ? Ordering Physician: Kriss Askew ?? Date of Service: 01/12/25 ?? Procedure(s): XR chest 2V ?? Accession Number(s): [id number] ? cc: Aubrie Trinidad MD; Kriss Askew [...] DD/ 1156 ? TD/TT: 01/12/25 1239 ? Reimbursement Rep: ? Procedure Note Namrata Norton - 01/12/[address] [address] XRay Report Signed Patient: Julia SmithMR#: [id number] : 1975Acct:[id number] Age/Sex: 49 / FADM Date: 01/12/25 Loc: HO.ED Attending Dr: Ordering Physician: Kriss Askew Date of Service: 01/12/25 Procedure(s): XR chest 2V Accession Number(s): [id number] cc: Aubrie Trinidad MD; Kriss Askew EXAMINATION: [...] 01/12/25 1245 DD/ 1156 TD/TT: 01/12/25 1239 Reimbursement Rep: [facility] External Provider IMG XR PROCEDURES Edited Result - Final * (ABNORMAL) POCT HGB A1C (01/10/2025 9:59 AM EDT) Pathologist [facility] Hemoglobin A1C 6.7(A) 4.0 - 6.0 % QC Media Lot # [id number] Lot# Expiration Date Blood 01/10/2025 9:59 AM EDT Gerry Whitehead MD POINT OF CARE TEST EN TER/EDIT ORDERABLES Final Result * (ABNORMAL) POCT Glucose (01/10/2025 9:56 AM EDT) Pathologist [facility] Glucose Blood, POC 228(A) 60 - 200 mg/dL QC Media Lot # [id number] Lot# Expiration Date [id number] Blood Capillary blood specimen / Unknown 01/10/2025 9:56 AM EDT Gerry Whitehead MD POINT OF CARE TEST EN TER/EDIT ORDERABLES Final Result * (ABNORMAL) Lipid Panel, Standard (08/18/2024 11:31 AM EDT) Triglycerides 107 <150 mg/dL [facility] Comment:Desirable Triglyceri de: less than 150 mg/dLBorderline High Triglyceride 150-199 mg/dLHigh Triglyceride: 200-499 mg/dLVery High Triglyceride: greater than or equal to 5OO mg/dL Cholesterol 208(H) <200 mg/dL [facility] Comment:Desirable Cholestero l: less than 200 mg/dLBorderline High Cholesterol: 200-239 mg/dLHigh Cholesterol: greater than 239 mg/dL LDL Cholesterol Calculated 115(H) <100 mg/dL [facility] Comment:Desirable LDL: less than 100 mg/dLNear Optimal/Above Optimal LDL: 110- 129 mg/dLBorderline High LDL: 130-159 mg/dLHigh LDL: 160-189 mg/dLVery High LDL: greater than or equal to 190 mg/dL HDL Cholesterol 72 >40 mg/dL [facility] Comment:Desirable HDL: great er than 40 mg/dL Note: This HDL assay may give artificially low results in patients with liver disease. Blood Venous blood specimen / Unknown 08/18/2024 11:31 AM EDT 08/18/2024 1:14 PM EDT Gerry Whitehead MD LAB BLOOD ORDERABLES Final Result [facility] [address] [place] [address] [phone] * BI Mammogram Screening Tomosynthesis Bilateral (06/09/2024 12:35 PM EDT) Anatomical Region Laterality Modality Breast Bilateral Mammography 06/09/2024 12:3 5 PM EDT Narrative 07/07/2024 11:45 AM EDT ? [facility] ? [address] ?[place], [place] [address] ? Mammography Report ? Signed ? Patient: Julia Smith ?MR#: ?? [id number] ? : 1975 ?Acct:[id number] ? Age/Sex: 49 / F ?ADM Date: 06/09/24 ? Loc: HO.MAMMO ? Attending Dr: Aubrie Trinidad MD ? Ordering Physician: Aubrie Trinidad MD ?Results: 1 ?? Negative ? Date of Service: 06/09/24 ?Follow Up: 1 Year From Orig ?? inal Mammogram ? Procedure(s): MM tomosynthesis screening BI ?? Accession Number(s): [id number] ? cc: Aubrie Trinidad MD ? EXAMINATION: ?? MM SCREENING DIGITAL BREAST TOMOSYNTHESIS, BILATERAL ? CLINICAL INFORMATION: ? Screening. Asymptomatic. ? COMPARISON: ?? Mammography: This study is compared with prior exams dating back to ? 2019. ? TECHNIQUE: ?? Digital breast tomosynthesis is [...] DD/ 1235 ? TD/TT: 06/09/24 1250 ? Reimbursement Rep: ? Procedure Note Cierra, Image - 07/07/2024 [facility] [address] [place] [address] Mammography Report Signed Patient: Julia SmithMR#: [id number] : 1975Acct:[id number] Age/Sex: 49 / FADM Date: 06/09/24 Loc: HO.MAMMO Attending Dr: Aubrie Trinidad MD Ordering Physician: Aubrie Trinidad MDResults: 1 Negative Date of Service: 06/09/24Follow Up: 1 Year From Orig inal Mammogram Procedure(s): MM tomosynthesis screening BI Accession Number(s): [id number] cc: Aubrie Trinidad MD EXAMINATION: MM SCREENING [...] Flower Nielsen MD 07/07/2024 11:42 AM EDT Dictated By: Flower Nielsen MD Signed By: <Electronically signed by Flower Nielsen MD in OV> 07/07/24 1142 DD/ 1235 TD/TT: 06/09/24 1250 Reimbursement Rep: Aubrie Trinidad MD IM BI PROCEDURES Edited Re sult - Final * Hm Colonoscopy (02/08/2024) Colonoscopy Normal Normal Historical Provider [facility] Final Result * (ABNORMAL) Cologuard?? colon cancer screening (12/18/2023 11:00 AM EST) Cologuard Result Positive( A) Negative 12/27/2023 11:00 AM EST [employer] (CLIA #:[id number]) Comment: POSITIVE TEST RESULT. A positive Cologuard [...] (Jesenia Perez al, N Engl J Med 2014;370(14):2316-5017.) Cologuard may produce a false negative or false positive result (no colorectal cancer or precancerous polyp present at colonoscopy follow up). A negative Cologuard test result does not guarantee the absence of CRC or advanced adenoma (pre-cancer). The current Cologuard screening interval is every 3 years. ([place] [employer] Society and U.S. Multi-Society Task Force). Cologuard performance data in a 10,000 patient pivotal study using colonoscopy as the reference method can be accessed at the following location: [email or web address]. Additional description of the Cologuard test process, warnings and precautions can be found at [email or web address]. Stool specimen (specimen) 12/18/2023 11:00 AM EST 12/19/2023 1:02 PM EST us Gerry Whitehead MD LAB MOLECULAR DIAGNOS TICS ORDERABLES Final Result [employer] (CLIA #:[id number]) [place] [address], * THINPREP PAP (04/17/2021 10:22 AM EDT) Clinical Information: None given [facility] COMMENT SEE COMMENT [facility] [...] historic and ?? current clinical information. ?? 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 [facility] LMP: 03/21/2021 [facility] Prev. BX: NONE GIVEN [facility] N [facility] Prev. PAP: NIL 03/2015 HPV - FO [facility] SOURCE: Cervix [facility] Statement Of Adequacy: SEE COMMENT [facility] Comment: Satisfactory for evaluation. Endocervical/transformation zone component present. 04/17/2021 10:2 2 AM EDT Wendie DONG LAB PATHOLOGY ORDERABLES Final Result [facility] [address] * HPV mRNA E6/E7 (04/17/2021 10:22 AM EDT) HPV nRNA E6/E7 Not Detected Not Detected [facility] Comment: Methodology: Truss Assembler-Mediated Amplification This assay detects E6/E7 viral messenger RNA (mRNA) from 14 high-risk HPV types (16,18,31,33,35,39,45,51,52,56,58,59,66,68). ? The analytical performance characteristics of this assay have been determined by [employer]. The modifications have not been cleared or approved by the FDA. This assay has been validated pursuant to the CLIA regulations and is used for clinical purposes. ?? For additional information, please refer to http://education.[employer].com/faq/WHY675d2 (This link if provided for information/ educational purposes only.) 04/17/2021 10:2 2 AM EDT us Wendie Davisadrianna CN LAB BLOOD ORDERABLES Judy mohsen Result [facility] [address] from Last 3 Months or Most Recently Relevant to Health Maintenance Insurance [facility] C3 Care Teams [employer] Press Tender Relationship Specialty Start Date End Date Gerry Echavarria MD [address] [place] [phone] PCP - General Internal Medicine 07/26/14 [employer]on [employer] 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
--- OUTSIDE RECORDS SUMMARY | 2025-02-03 14:45 | XMS_ITS | Clinical Summary ---
Author Organization 175 [facility] Address 175 [place] [address] Phone Care Team Providers Care Flight Attendant/Inflight Manager Name Role Phone Gerry Lopez MD Primary [...] THE SAME TIME WITH FOOD 3 Active Hospital, Clinic, or Other Facility Administered Medication Ordered Dose Route Frequency Start Date End Date Status lidocaine (PF) (XYLOCAINE-MPF) 1 % injection 0.5 mLIndications:Synovit is and tenosynovitis of left ankle and foot .5 mL inj Once PRN Procedure 01/17/2025 01/17/2025 Ended triamcinolone acetonide (KENALOG-40) 40 mg/mL injection 20 mgIndications:Synovit is and tenosynovitis of left ankle and foot 20 mg IAtc Once PRN Procedure 01/17/2025 01/17/2025 Ended Encounters Date Type Department Care Team Description 01/17/2025 1:00 PM EDT Office Visit Orthopedic Surgery - [address] [phone] Juan Frey DPM Synovitis and tenosynovitis of left ankle and foot (Primary Dx); Disorder of ligament of foot, left; Primary osteoarthritis of both feet 12/05/2024 1:15 PM EST Office Visit Orthopedic Surgery [place] [address] [phone] Juan Frey DPM Primary osteoarthritis of both feet (Primary [...] - - Weight 95.3 kg (210 lb) 01/17/2025 1:06 PM EDT Height 165.1 cm (5' 5 ) 01/17/2025 1:06 PM EDT Body Mass Index 34.95 01/17/2025 1:06 PM EDT Plan of Treatment Upcoming Encounters Date Type Department Care Team (Late st Contact Info) Description 03/20/2025 2:30 PM EDT Office Visit Orthopedic [facility] [address] [phone] Juan Frey DPM [address] [address] Health Maintenance Due Date Last Done Comments Breast Cancer Screening 1975 Diabetes: Annual Foot Exam 1986 Diabetes: Annual Retina Eye Exam 1986 HIV Screening 10/01/2022 Hepatitis C Screening 10/01/2022 Social Influencers of Health Screening 10/01/2022 COVID-19 Vaccine (4 - 2023-2 5 season) 2024 11/19/2021, 04/28/2021, 03/28/2021 Influenza Vaccine (#1) 2024 01/03/2014 Diabetes: Annual Urine Albumin-Creatinine Ratio (uACR) 10/12/2024 Diabetes: Blood Sugar Contro l Test (HGBA1C) 07/13/2025 01/10/2025, 08/11/2024, 05/21/2022 Depression Screening 11/01/2025 11/01/2024 Diabetes: Annual GFR (Glomerular Filtration Rate) 01/12/2026 01/12/2025, 09/12/2024, 04/09/2024 Hypertension/CHF/CAD Annual BMP Blood Test 01/12/2026 01/12/2025, 09/12/2024, 04/09/2024 Cervical Cancer Screening: HPV 04/17/2026 04/17/2021 Colorectal [...] Diagnosis Comments INJECTION TENDON OR LIGAMENT Routine 01/17/2025 1:00 PM EDT Synovitis and tenosynovitis of left ankle and foot INJECTION TENDON OR LIGAMENT Routine 12/05/2024 1:15 [...] Major depressive disorder, recurrent episode, moderate (CMS/HCC) HM ANNUAL BMP BLOOD TEST Routine 04/09/2024 HM FIT-DNA Routine 12/18/2023 LIPID PANEL Routine 06/03/2023 HEMOGLOBIN A1C Routine 05/21/2022 HM HPV Routine 04/17/2021 from Last 3 Months or Most Recently Relevant to Health Maintenance Results * Injection tendon or ligament (01/17/2025 1:00 PM EDT) Juan Garcia DPM - 01/17/2025 1:00 PM EDT Juan Frey DPM ? 01/17/2025 ??7:03 PM Injection tendon or ligament Indications: pain Details: 25 G needle Medications: 0.5 mL lidocaine (PF) 1 %; 20 mg triamcinolone acetonide 40 mg/mL Informed Consent: ??Site: ??Foot ligament tendon Juan Frey DPM IN CLINIC/BEDSIDE ORDERAB LES Final Result * Injection tendon or ligament (12/05/2024 1:15 [...] ARIANA Negative Negative 11/11/2024 10:[address] [facility] Blood Venous blood specimen / Unknown Venipuncture / Unknown 11/10/2024 12:54 PM EST 11/10/2024 4:04 PM EST Albert Diaz MD LAB BLOOD ORDERABLES Final Re sult [facility] [address] [place] [address], [place] [phone] * DNA antibody, double-stranded (11/10/2024 12:54 PM EST) [facility] Anti-DNA Double Stranded Antibody Negative Negative LAB CHEMISTRY METHOD 11/13/2024 11:[address] [facility] ds DNA Ab 20 <=200 I Unit/mL LAB CHEMISTRY METHOD 11/13/2024 11:[address] [facility] Blood Venous blood specimen / Unknown Venipuncture / Unknown 11/10/2024 12:54 PM EST 11/10/2024 4:04 PM EST us Albert Diaz MD LAB BLOOD ORDERABLES Final Re sult Performing Organization Address City/[facility]/ZIP Co de Phone Number [facility] [address] [place] [address], [place] [phone] * (ABNORMAL) Vitamin D 25 hydroxy (11/10/2024 12:54 PM EST) [facility] Vit D, 25-Hydroxy 14.3(L) 30.0 - 80.0 ng/mL LAB CHEMISTRY METHOD 11/10/2024 6:[address] [facility] Blood Venous blood specimen / Unknown Venipuncture / Unknown 11/10/2024 12:54 PM EST 11/10/2024 4:04 PM EST us Albert Diaz MD LAB BLOOD ORDERABLES Final Re sult [facility] [address] [place] [address], [place] [phone] * (ABNORMAL) Sedimentation rate (11/10/2024 12:54 PM EST) [facility] Sed Rate 34(H) 0 - 20 mm/hr LAB HEMETOLOGY METHOD 11/10/2024 4:[address] [facility] Blood Venous blood specimen / Unknown Venipuncture / Unknown 11/10/2024 12:54 PM EST 11/10/2024 4:03 PM EST Albert Diaz MD LAB BLOOD ORDERABLES Final Re sult Performing Organization Address City/[facility]/ZIP Co de Phone Number [facility] [address] [place] [address], [place] [phone] * C-reactive protein (11/10/2024 12:54 PM EST) [facility] C-Reactive Protein 0.48 <=0.50 mg/dL LAB CHEMISTRY METHOD 11/10/2024 6:[address] [facility] Blood Venous blood specimen / Unknown Venipuncture / Unknown 11/10/2024 12:54 PM EST 11/10/2024 4:04 PM EST Albert Diaz MD LAB BLOOD ORDERABLES Final Re sult Performing Organization Address [facility] de Phone Number [facility] [address] [place] [address], [place] [phone] * Vitamin B1 (11/10/2024 12:54 PM EST) [facility] Vitamin B1 Whole Blood 58 38 - 122 ug/L 11/15/2024 9:38 AM EST [facility] Comment: This test was developed and the performance characteristics determined by [facility]. It has not been cleared or approved by the FDA. The laboratory is regulated under CLIA as qualified to perform high-complexity testing. This test is used for patient testing purposes. It should not be regarded as investigational or for research. Test performed at [facility], [address] , [place], [place] [address] ? [phone] Katelynn Dotson MD, PhD - Manager Route Blood Venous blood specimen / Unknown Venipuncture / Unknown 11/10/2024 12:54 PM EST 11/10/2024 4:04 PM EST us Albert Diaz MD LAB BLOOD ORDERABLES Final Re sult [facility] [address] [place] [address] * Folate (11/10/2024 12:54 PM EST) [facility] Folate 9.5 2.8 - 17.0 ng/ml LAB CHEMISTRY METHOD 11/10/2024 6:[address] [facility] Blood Venous blood specimen / Unknown Venipuncture / Unknown 11/10/2024 12:54 PM EST 11/10/2024 4:04 PM EST Albert Diaz MD LAB BLOOD ORDERABLES Final Re sult [facility] [address] [place] [address], [place] [phone] * Vitamin B12 (11/10/2024 12:54 PM EST) [facility] Vitamin B-12 401 250 - 900 pcg/mL LAB CHEMISTRY METHOD 11/10/2024 6:[address] [facility] Blood Venous blood specimen / Unknown Venipuncture / Unknown 11/10/2024 12:54 PM EST 11/10/2024 4:04 PM EST Albert Diaz MD LAB BLOOD ORDERABLES Final Re sult [facility] [address] [place] [address], [place] [phone] * Annual BMP Blood Test (04/09/2024) [facility] Annual BMP Blood Test abstracted Historical Provider HEALTH MAINTENANCE Final Result * FIT-DNA (Cologuard) (12/18/2023) [facility] Colorectal Cancer Screening: FIT-DNA (Cologuard) no interpretation , abstracted Historical Provider HEALTH MAINTENANCE Final Result * Lipid panel (06/03/2023) Triglycerides 0 mg/dL Comment:no interpretation Cholesterol 0 mg/dL Comment:no interpretation HDL 0 mg/dL Comment:no interpretation LDL Cholesterol 0 mg/dL Comment:no interpretation Blood Venous blood specimen / Unknown [facility] Provider LAB BLOOD ORDERABLES Judy l Result * Hemoglobin A1c (05/21/2022) Hemoglobin A1C 0.0 % Comment:no interpretation Blood Venous blood specimen / Unknown Result [facility] Provider LAB BLOOD ORDERABLES Judy l Result * Cervical Cancer Screening: HPV (04/17/2021) Pathologist [facility] Cervical Cancer Screening: HPV no interpretation , abstracted [facility] Provider HEALTH MAINTENANCE Final Result from Last 3 Months or Most Recently Relevant to Health Maintenance Insurance MEDICAID - [place] Care Teams Flight Attendant/Inflight Manager Relationship Specialty Start Date End Date Grery Lopez MD [address] [place] [address] [place] [phone] PCP - General 07/29/22
--- OUTSIDE RECORDS SUMMARY | 2025-02-03 14:45 | XMS_ITS | Encounter Summary ---
Author Organization [employer] Address [address] [facility] [address] 7t [place] [address] Care Team Providers Care Exchange Teller Name Role Phone Gerry Echavarria MD Primary Care Provide r Reason for Visit * Reason Comments Med Refill Encounter Details Date Type Department Care Team ([facility] st Contact Info) Description 08/18/2023 Refill [facility] [address] [place] [address] [place], [place] COVID-19 Social History Tobacco [...] 04/18/2025 11:15 AM EDT Office Visit [facility] [address] [place], [place] [phone] Gerry Echavarria MD [address] [place] [address] documented as of this encounter Goals Goal [...] documented as of this encounter Care Teams Exchange Teller Relationship Specialty Start Date End Date Gerry Echavarria MD [address] [place] [address] PCP - General Internal Medicine 07/26/14 Theron New Operating Room NurseIp/Mosaic Technician 01/08/24 [facility] 09/28/24 documented as of this encounter
--- OUTSIDE RECORDS SUMMARY | 2025-02-03 14:45 | XMS_ITS | Encounter Summary ---
Author Organization [employer] Address [address] [facility] 7t [place] [address] Care Team Providers Care Sleep Lab Technician Name Role Phone Gerry Echavarria MD Primary Care Provide r Reason for Visit * Reason Comments Med Refill Encounter Details Date Type Department Care Team ([facility] st Contact Info) Description 08/08/2023 Refill [facility] [address] [place] [address] Name, MD Wai [address] [place] [address] Mixed anxiety and depressive disorder Social History [...] Office Visit [facility] [address] [place] [address] Gerry Echavarria MD [address] [place] [address] documented as of this encounter Goals Goal [...] documented as of this encounter Care Teams Sleep Lab Technician Relationship Specialty Start Date End Date Gerry Echavarria MD 230 [place] [address] PCP - General Internal Medicine 07/26/14 Theron New Stonecutter Apprentice HandField Interviewer 01/08/24 [facility] 09/28/24 documented as of this encounter
--- OUTSIDE RECORDS SUMMARY | 2025-02-03 14:45 | XMS_ITS | Encounter Summary ---
Author Organization [facility] Address [address] [facility] 7t [place] [address] Care Team Providers Care Abrasive Wheel Molder Name Role Phone Gerry Echavarria MD Primary Care Provide r Reason for Visit * Reason Comments Med Refill Encounter Details Date Type Department Care Team ([facility] st Contact Info) Description 09/10/2023 Refill [facility] [address] [place], [place] [phone] Gerry Echavarria MD [address] [place], [place] [phone] Social History Tobacco Use Types Packs/Day Years [...] Description 04/18/2025 11:15 AM EDT Office Visit [facility] [address] [place] [address] Gerry Echavarria MD [address] [place] [address] documented as of this encounter Goals Goal [...] documented as of this encounter Care Teams Abrasive Wheel Molder Relationship Specialty Start Date End Date Gerry Echavarria MD [address] [place] [address] PCP - General Internal Medicine 07/26/14 Theron New Senior Test AnalystPier Hand 01/08/24 [facility] 09/28/24 documented as of this encounter
--- OUTSIDE RECORDS SUMMARY | 2025-02-03 14:45 | XMS_ITS | Encounter Summary ---
Author Organization [employer] Address [address] [facility] 7t [place] [address] Care Team Providers Care Patient Care Representative Name Role Phone Gerry Echavarria MD Primary Care Provide r Reason for Visit * Reason Comments Med Refill Encounter Details Date Type Department Care Team ([facility] st Contact Info) Description 08/25/2023 Refill [facility] [address] [place], [place] [phone] Wendie Sandoval, [facility] [address] [place] [address] Social History Tobacco Use Types Packs/Day Years [...] Description 04/18/2025 11:15 AM EDT Office Visit [facility] [address] [place] [address] Gerry Echavarria MD [address] [place] [address] documented as of this encounter Goals Goal [...] documented as of this encounter Care Teams Patient Care Representative Relationship Specialty Start Date End Date Gerry Echavarria MD [address] [place] [address] PCP - General Internal Medicine 07/26/14 Theron New Shipwright ApprenticeFood Truck Caterer 01/08/24 [facility] 09/28/24 documented as of this encounter
--- OUTSIDE RECORDS SUMMARY | 2025-02-03 14:45 | XMS_ITS | Encounter Summary ---
Author Organization [employer] Address [address] [facility] 7t [place] [address] Care Team Providers Care Elevator Mechanic Apprentice Name Role Phone Gerry Echavarria MD Primary Care Provide r Reason for Visit * Reason Onset Date Comments Med Refill 10/11/2024 Encounter Details Date Type Department Care Team ([facility] st Contact Info) Description 10/11/2024 Telephone [facility] [address] [place], [place] [phone] Gerry Echavarria MD [address] [place] [address] Med Refill Social History Tobacco Use Types [...] 10 MG tablet To be sent to: [facility]/pharmacy [address] [place] [address] ABDULAZIZ TALAVERA documented in this encounter Plan of Treatment Upcoming Encounters Date Type Department Care Team (Late st Contact Info) Description 04/18/2025 11:15 AM EDT Office Visit [facility] [address] [place] [address] Gerry Echavarria MD [address] [place] [address] documented as of this encounter Goals Goal Patient Goal Type Associated Problems Recent Progress Patient-Stated? Author Blood Pressure < 140/90 Blood Pressure Essential hypertension 125/69(2024 3:20 PM EDT) No Angel Emmanuel Roney Note: BP [...] documented as of this encounter Care Teams Elevator Mechanic Apprentice Relationship Specialty Start Date End Date Gerry Echavarria MD [address] [place] [address] PCP - General Internal Medicine 07/26/14 Theron New Mineral SurveyorFriend Of The Court 01/08/24 [facility] 09/28/24 documented as of this encounter
--- OUTSIDE RECORDS SUMMARY | 2025-02-03 14:45 | XMS_ITS ---
Author Organization [facility] Address [address] [place] [phone] Care Team Providers Care Senior Government Program Analyst Name Role Phone Shantell Whitehead MD, Gerry [...] Problem Status W/U Status Risk Notes Problem [id number] H. pylori infection (A04.8) Active confirmed Encounters Encounter Location Date Provider Diagnosis [facility] [address] [place] [phone] 02/24/2024 Wesley Olivo Jr H. pylori infection [...] Provider Name:Wesley ferrer Jr, 04/10/2025 10:40:00 AM, [address] [place] [address], [address], [place], [address], Progress Notes * CHERELLE FLOREZDOB: 6 (48 yo F)Acc No.[id number]:02/24/2024 Patient:?CHERELLE FLOREZ :1975???Age:48 Y???Sex:Female Address:[address] [place] [address] [place], [address] * Refills? Start Omeprazole Capsule Delayed Release, [...] true * Date:? Generated for Ada thompson/Tiff/eTransmitting on:?02/03/2025 02:45 PM EDT
--- OUTSIDE RECORDS SUMMARY | 2025-02-03 14:45 | XMS_ITS | Encounter Summary ---
Author Organization [employer] Address [address] [facility] 7t [place] [address] Care Team Providers Care Marker Delivery Name Role Phone Gerry Echavarria MD Primary Care Provide r Reason for Visit * Reason Comments Med Refill Encounter Details Date Type Department Care Team ([facility] st Contact Info) Description 08/08/2023 Refill [facility] [address] [place], [place] [phone] Mala Williamson, ANP [address] [place] [address] Vertigo; Diarrhea, unspecified type; Irritable bowel syndrome, [...] Description 04/18/2025 11:15 AM EDT Office Visit [facility] [address] [place], [place] [phone] Gerry Echavarria MD [address] [place], [place] [phone] documented as of this encounter Goals Goal [...] documented as of this encounter Care Teams Marker Delivery Relationship Specialty Start Date End Date Gerry Echavarria MD [address] [place] [address] PCP - General Internal Medicine 07/26/14 Theron New Digital Sales RepresentativeCeramics Teacher 01/08/24 [facility] 09/28/24 documented as of this encounter
--- OUTSIDE RECORDS SUMMARY | 2025-02-03 14:45 | XMS_ITS | Encounter Summary ---
Author Organization [employer] Address [address] [facility] 7t [place] [address] Care Team Providers Care Prefitter Name Role Phone Gerry Echavarria MD Primary Care Provide r Encounter Details Date Type Department Care Team ([facility] st Contact Info) Description 10/06/2024 Telephone [facility] [address] [place] [address] Gerry Echavarria MD 230 [place], [place] [phone] Social History Tobacco Use Types Packs/Day Years [...] EDT Office Visit [facility] [address] [place] [address] Gerry Echavarria MD 230 [place] [address] documented as of this encounter Goals Goal [...] documented as of this encounter Care Teams Prefitter Relationship Specialty Start Date End Date Gerry Echavarria MD [address] [place] [address] PCP - General Internal Medicine 07/26/14 Theron New Vallez Filter OperatorSmall Stock Facer 01/08/24 [facility] 09/28/24 documented as of this encounter
--- OUTSIDE RECORDS SUMMARY | 2025-02-03 14:46 | XMS_ITS | Encounter Summary ---
Author Organization [employer] Address [address] [facility] 7t [place] [address] Care Team Providers Care S3B Multi Sensor Operator Name Role Phone Gerry Echavarria MD Primary Care Provide r Reason for Visit * Reason Comments Med Refill Encounter Details Date Type Department Care Team ([facility] st Contact Info) Description 09/20/2023 Refill [facility] [address] [place], [place] [phone] Amalia Ta MD [address] [place] [address] Social History Tobacco Use Types Packs/Day Years [...] Description 04/18/2025 11:15 AM EDT Office Visit [facility] 230 [place] [address] Gerry Echavarria MD [address] [place] [address] documented as of this encounter Goals Goal [...] documented as of this encounter Care Teams S3B Multi Sensor Operator Relationship Specialty Start Date End Date Gerry Echavarria MD [address] [place] [address] PCP - General Internal Medicine 07/26/14 Theron New Air Defense SpecialistHoop Driving Machine Operator Helper 01/08/24 [facility] 09/28/24 documented as of this encounter
--- OUTSIDE RECORDS SUMMARY | 2025-02-03 14:46 | XMS_ITS | Encounter Summary ---
Author Organization [employer] Address [address] [facility] 7t [place] [address] Care Team Providers Care Technology Specialist Name Role Phone Gerry Echavarria MD Primary Care Provide r Reason for Visit * Reason Comments Med Refill Encounter Details Date Type Department Care Team ([facility] st Contact Info) Description 01/29/2025 Refill [facility] [address] [place] [phone] Gerry Echavarria MD 230 [place], [place] [phone] Polyarthralgia Social History Tobacco Use Types Packs/Day [...] Description 04/18/2025 11:15 AM EDT Office Visit [facility] 230 [place] [address] Gerry Echavarria MD [address] [place] [address] documented as of this encounter Goals Goal [...] as of this encounter Visit Diagnoses Diagnosis Polyarthralgia Pain in joint, multiple sites documented in this encounter Additional Health Concerns Assessment Noted Time PHQ-9 Depression Total Score: 11 11/01/ 024 11:14 AM EST documented as of this encounter Care Teams Technology Specialist Relationship Specialty Start Date End Date Gerry Echavarria MD [address] [place] [address] PCP - General Internal Medicine 07/26/14 Theron New Crisis WorkerCertified Anesthesiologist Assistant 01/08/24 [facility] 09/28/24 documented as of this encounter
--- OUTSIDE RECORDS SUMMARY | 2025-02-03 14:46 | XMS_ITS | Encounter Summary ---
Author Organization [employer] Address [address] [facility] 7t [place] [address] Care Team Providers Care Product Responsibility Liaison Name Role Phone Gerry Echavarria MD Primary Care Provide r Reason for Visit * Reason Comments Med Refill Encounter Details Date Type Department Care Team ([facility] st Contact Info) Description 09/20/2023 Refill [facility] 230 [place], [place] [phone] Tracey Leyva MD 230 [place], [place] [phone] Social History Tobacco Use Types Packs/Day Years [...] 11:15 AM EDT Office Visit [facility] [address] [place] [address] Gerry Echavarria MD 230 [place] [address] documented as of this encounter Goals Goal [...] documented as of this encounter Care Teams Product Responsibility Liaison Relationship Specialty Start Date End Date Gerry Echavarria MD [address] [place] [address] PCP - General Internal Medicine 07/26/14 Theron New Security System Sales ConsultantInterpreter And Translator 01/08/24 [facility] 09/28/24 documented as of this encounter
--- OUTSIDE RECORDS SUMMARY | 2025-02-03 14:46 | XMS_ITS | Encounter Summary ---
Author Organization [facility] [facility] [employer] [facility] Address [address] [facility] 7t [place] [address] Care Team Providers Care Fixed Capital Clerk Name Role Phone Gerry Echavarria MD Primary Care Provide r Reason for Visit * Reason Onset Date Comments Nurse Triage 12/14/2023 Encounter Details Date Type Department Care Team ([facility] st Contact Info) Description 12/14/[address] [facility] [address] [place], [place] [phone] Gerry Echavarria MD [address] [place] [address] Nurse Triage Social History Tobacco Use Types [...] given number to free telehealth service via [facility] [phone]. Pt to call them to see if [...] cough,fever) (Exceptions: Already seen by doctor or FLANGING OPERATOR/PA and no new or worsening symptoms.) * [...] You become worse * Telephone Encounter - Evleio Guevara - 12/14/2023 1:10 PM EST Symptom: COVID-19 Suspected Outcome: Schedule an urgent appointment (within 1 hour) or talk to a nurse or provider soon Reason: Any trouble breathing through the mouth The caller accepted this outcome Please contact pt @ [phone] Tajik Pt advices feels her chest a little tight. Came out positive for COVID on 12/14/2023 documented in this encounter Plan of Treatment Upcoming Encounters Date Type Department Care Team (Late st Contact Info) Description 04/18/2025 11:15 AM EDT Office Visit [facility] 230 [place] [address] Gerry Echavarria MD [address] [place] [address] documented as of this encounter Goals Goal [...] documented as of this encounter Care Teams Fixed Capital Clerk Relationship Specialty Start Date End Date Gerry Echavarria MD [address] [place] [address] PCP - General Internal Medicine 07/26/14 Theron New AnnouncerSite Supervising Technical Operator 01/08/24 [facility] 09/28/24 documented as of this encounter
--- OUTSIDE RECORDS SUMMARY | 2025-02-03 14:46 | XMS_ITS | Encounter Summary ---
Author Organization [employer] Address 75 [facility] 7t [place] [address] Care Team Providers Care Freight Broker Agent Name Role Phone Gerry Echavarria MD Primary Care Provide r Reason for Visit * Reason Comments Med Refill Encounter Details Date Type Department Care Team ([facility] st Contact Info) Description 08/18/2023 Refill [facility] 230 [place], [place] [phone] Krystina Haji MD 230 [place], [place] [phone] Mixed anxiety and depressive disorder; Chronic migraine [...] Description 04/18/2025 11:15 AM EDT Office Visit [facility] [address] [place] [address] Gerry Echavarria MD 230 [place] [address] documented as of this encounter Goals Goal [...] documented as of this encounter Care Teams Freight Broker Agent Relationship Specialty Start Date End Date Gerry Echavarria MD 230 [place] [address] PCP - General Internal Medicine 07/26/14 Theron New Senior Production PlannerTurn Out Worker 01/08/24 [facility] 09/28/24 documented as of this encounter
--- OUTSIDE RECORDS SUMMARY | 2025-02-03 14:46 | XMS_ITS | Encounter Summary ---
Author Organization [employer] Address [address] [facility] 7t [place] [address] Care Team Providers Care Presbyterian Clergy Name Role Phone Gerry Echavarria MD Primary Care Provide r Reason for Visit * Reason Comments Med Refill Encounter Details Date Type Department Care Team ([facility] st Contact Info) Description 09/22/2023 Refill [facility] 230 [place], [place] [phone] Tracey Leyva MD 230 [place], [place] [phone] Social History Tobacco Use Types Packs/Day Years [...] Description 04/18/2025 11:15 AM EDT Office Visit [facility] 230 [place] [address] Gerry Echavarria MD 230 [place] [address] documented as of this encounter Goals Goal [...] documented as of this encounter Care Teams Presbyterian Clergy Relationship Specialty Start Date End Date Gerry Echavarria MD 230 [place] [address] PCP - General Internal Medicine 07/26/14 Theron New RoentgenologistRelationship Executive 01/08/24 [facility] 09/28/24 documented as of this encounter
--- OUTSIDE RECORDS SUMMARY | 2025-02-03 14:46 | XMS_ITS | Encounter Summary ---
Author Organization [facility] Address [address] [place] [address] 7 [place] [address] Care Team Providers Care Assistant County Engineer Name Role Phone Gerry Echavarria MD Primary Care Provide r Reason for Visit * Reason Onset Date Comments triage 12/26/2022 Encounter Details Date Type Department Care Team ([facility] st Contact Info) Description 12/26/2022 Telephone [facility] 230 [place], [place] [phone] Gerry Echavarria MD 230 [place] [address] triage Social History Tobacco Use Types Packs/Day [...] accepted this outcome Please contact pt at [phone] documented in this encounter Plan of Treatment Upcoming Encounters Date Type Department Care Team (Late st Contact Info) Description 04/18/2025 11:15 AM EDT Office Visit [facility] [place] [address] Gerry Echavarria MD [address] [facility] [place] [address] documented as of this encounter Goals Goal [...] on filedocumented in this encounter Care Teams Assistant County Engineer Relationship Specialty Start Date End Date Gerry Echavarria MD 230 [facility] [place] [address] PCP - General Internal Medicine 07/26/14 Theron New Correspondence School TeacherPattern Marker 01/08/24 [facility] 09/28/24 documented as of this encounter
--- OUTSIDE RECORDS SUMMARY | 2025-02-03 14:46 | XMS_ITS | Encounter Summary ---
Author Organization [employer] Address [address] [facility] 7t [place] [address] Care Team Providers Care Technical Service Representative Name Role Phone Gerry Echavarria MD Primary Care Provide r Reason for Visit * Reason Comments Med Refill Encounter Details Date Type Department Care Team ([facility] st Contact Info) Description 09/20/2023 Refill [facility] 230 [place], [place] [phone] [employer] 230 [place] [address] Folliculitis Social History Tobacco Use Types Packs/Day [...] Description 04/18/2025 11:15 AM EDT Office Visit [facility] 230 [place] [address] Gerry Echavarria MD 230 [place] [address] documented as of this encounter Goals Goal [...] documented as of this encounter Care Teams Technical Service Representative Relationship Specialty Start Date End Date Gerry Echavarria MD 230 [place] [address] PCP - General Internal Medicine 07/26/14 Theron New Manufacturing Plant ManagerPbx Wire Chief 01/08/24 [facility] 09/28/24 documented as of this encounter
--- OUTSIDE RECORDS SUMMARY | 2025-02-03 14:46 | XMS_ITS | Encounter Summary ---
Author Organization [employer] Address 75 [facility] 7t [place] [address] Care Team Providers Care Boat Operator Name Role Phone Gerry Echavarria MD Primary Care Provide r Reason for Visit * Reason Comments Med Refill Encounter Details Date Type Department Care Team ([facility] st Contact Info) Description 09/20/2023 Refill [facility] 230 [place], [place] [phone] Mala Williamson, ANP 230 [place] [address] Diarrhea, unspecified type; Irritable bowel syndrome, unspecified [...] 11:15 AM EDT Office Visit [facility] 230 [place] [address] Gerry Echavarria MD [address] [place] [address] documented as of this encounter Goals Goal [...] documented as of this encounter Care Teams Boat Operator Relationship Specialty Start Date End Date Gerry Echavarria MD [address] [place] [address] PCP - General Internal Medicine 07/26/14 Theron eNw Mortgage ProfessionalDirector Of Entertainment 01/08/24 [facility] 09/28/24 documented as of this encounter
--- OUTSIDE RECORDS SUMMARY | 2025-02-03 14:46 | XMS_ITS | Encounter Summary ---
Author Organization [employer] Address [address] [place] [address] 7 [place] [address] Care Team Providers Care Public Health Technologist Name Role Phone Gerry Echavarria MD Primary Care Provide r Reason for Visit * Reason Onset Date Comments Med Refill 11/23/2024 Encounter Details Date Type Department Care Team ([facility] st Contact Info) Description 11/23/2024 Telephone [facility] 230 [place], [place] [phone] Gerry Echavarria MD 230 [place] [address] Med Refill Social History Tobacco Use Types [...] : FreeStyle lancets To be sent to: [facility]/pharmacy #[id number] documented in this encounter Plan of Treatment Upcoming Encounters Date Type Department Care Team (Late st Contact Info) Description 04/18/2025 11:15 AM EDT Office Visit [facility] 230 [place] [address] Gerry Echavarria MD 230 [place] [address] documented as of this encounter Goals Goal [...] documented as of this encounter Care Teams Public Health Technologist Relationship Specialty Start Date End Date Gerry Echavarria MD [address] [place] [address] PCP - General Internal Medicine 07/26/14 Theron New Merchandise Presentation AssociateSocial Sciences Lecturer 01/08/24 [facility] 09/28/24 documented as of this encounter
--- OUTSIDE RECORDS SUMMARY | 2025-02-03 14:46 | XMS_ITS | Encounter Summary ---
Author Organization [employer] Address 75 [facility] 7t [place] [address] Care Team Providers Care Traveling Passenger Agent Name Role Phone Gerry Echavarria MD Primary Care Provide r Reason for Visit * Reason Onset Date Comments Order 09/18/2023 Encounter Details Date Type Department Care Team ([facility] st Contact Info) Description 09/18/2023 Telephone [facility] MEDICINE 230 [place], [place] [phone] Gerry Echavarria MD 230 [place] [address] Order Social History Tobacco Use Types Packs/Day [...] and video instructions. Please contact pt at [phone] Tristanian Speaker TC placed with [employer] ID # [id number]. Pt answered the phone and hung up on vocational training instructor, called placed again and a message was left in Tristanian for her to contact the [facility]. I do not see anything in the [...] and video instructions. Please contact pt at [phone] Tristanian Speaker documented in this encounter Plan of Treatment Upcoming Encounters Date Type Department Care Team (Late st Contact Info) Description 04/18/2025 11:15 AM EDT Office Visit [facility] MED[facility] [address] [place] [address] Gerry Echavarria MD 230 [facility] [place] [address] documented as of this encounter Goals Goal Patient Goal Type Associated Problems Recent Progress Patient-Stated? Author Blood Pressure < 140/90 Blood Pressure Essential hypertension 125/69(2024 3:20 PM EDT) No Angel Emmanuel PharmD Note: BP [...] documented as of this encounter Care Teams Traveling Passenger Agent Relationship Specialty Start Date End Date Gerry Echavarria MD 230 [place] [address] PCP - General Internal Medicine 07/26/14 Theron New [employer] Mainframe Systems ProgrammerSports Betting Manager 01/08/24 [facility] 09/28/24 documented as of this encounter
--- OUTSIDE RECORDS SUMMARY | 2025-02-03 14:46 | XMS_ITS | Encounter Summary ---
Author Organization [employer] Address [address] [place] [address] 7 [place] [address] Care Team Providers Care Drywall Installer Name Role Phone Gerry Echavarria MD Primary Care Provide r Reason for Visit * Reason Onset Date Comments Care Coordination 01/26/2025 Home Care Agen cy Encounter Details Date Type Department Care Team ([facility] Contact Info) Description 01/26/2025 Telephone [facility] 230 [place], [place] [phone] Gerry Echavarria MD 230 [place] [address] Care Coordination (Home Care Agency) Social History Tobacco Use Types Packs/Day Years [...] AM EDT documented as of this encounter Progress Notes * Diamante White RN - 01/26/2025 12:01 PM EDT Received VNA orders from [employer] for a Face to Face and Plan of Care with certification period 12/28/24-02/25/25. VNA agency had called in to health center requesting signature on referral form on 12/14/24. Referral form that was sent over was a self-referral form from the agency [facility]. Pt also called in stating needed referral signed from [employer] [facility] on 01/03/25 for RISK ENGINEER services. Plan of care that was received is for daily alf visits. Per Care Team, [facility]. Orders can not be signed until it is verified that the patient is not receiving duplicate services. Please assess to see if patient is currently active with both VNA agencies. If patient is active with both agencies, please send a discharge order to one of the agencies, preferrably [facility] since [facility] with patient since 2021. documented in this encounter Miscellaneous Notes * Telephone Encounter - Bettina Choi RN - 01/30/2025 11:09 AM EDT TC placed to [facility] who confirms that the pt is actively receiving daily alf that started on 12/28/2024. TC placed to [facility] and a detailed VM was left including direct extension to call back [facility] regarding this pt. * Telephone Encounter - Bettina Choi RN - 01/30/2025 10:20 AM EDT TC placed to pt with S psychiatric nurse practitioner #[id number] to inquire as to which VNA service is currently giving her care at home. Per the pt she is actively getting VNA services from [facility]. Pt did not mention any other service and was not familiar with the [facility] name. This message willbe sent back to Diamante White RN for FYI documented in this encounter Plan of Treatment Upcoming Encounters Date Type Department Care Team (Late st Contact Info) Description 04/18/2025 11:15 AM EDT Office Visit [facility] 230 [place], [place] [phone] Gerry Echavarria MD 230 [place] [address] documented as of this encounter Goals Goal [...] hypertension On track( 024 4:06 PM EDT) Angel Adam, AroldoD Note: inactive, advised some amount of cardio can help with heart health documented as of this encounter Visit Diagnoses Not on filedocumented in this encounter Additional Health Concerns Assessment Noted Time PHQ-9 Depression Total Score: 11 11/01/ 024 11:14 AM EST documented as of this encounter Care Teams Drywall Installer Relationship Specialty Start Date End Date Gerry Echavarria MD [address] [place] [address] PCP - General Internal Medicine 07/26/14 Theron New Supervisor AnodizingWood Gluer 01/08/24 [facility] 09/28/24 documented as of this encounter
--- OUTSIDE RECORDS SUMMARY | 2025-02-03 14:46 | XMS_ITS ---
Author Organization [facility] Address [address] [facility] [address] [place] [phone] Care Team Providers Care Community Planning Technician Name Role Phone Shantell Whitehead MD, [...] Active Encounters Encounter Location Date Provider Diagnosis [facility] [address] [place] [phone] 01/13/2024 Wesley Olivo Jr Plan Of Treatment [...] Provider Name:Wesley ferrer Jr, 04/10/2025 10:40:00 AM, [address] [place] [address], [address], [place], [address], Progress Notes * CHERELLE FLOREZDOB: 6 (48 yo F)Acc No.[id number]:01/13/2024 Patient:?CHERELLE FLOREZ :1975???Age:48 Y???Sex:Female Address:[address] [place] [address], [place] [address] * Refills? Start MiraLax (colon prep), 8.3 [...] true * Date:? Generated for Ada thompson/Tiff/Himanshuitting on:?02/03/2025 02:46 PM EDT
--- OUTSIDE RECORDS SUMMARY | 2025-02-03 14:46 | XMS_ITS | Encounter Summary ---
Author Organization [facility] Address [address] [place] [address] 7 [place] [address] Care Team Providers Care Broadcast Meteorologist Name Role Phone Gerry Echavarria MD Primary Care Provide r Reason for Visit * Reason Onset Date Comments Med Refill 12/30/2022 Encounter Details Date Type Department Care Team ([facility] st Contact Info) Description 12/30/2022 Telephone [facility] MEDICINE 230 [place], [place] [phone] Gerry Echavarria MD 230 [place] [address] Med Refill Social History Tobacco Use Types [...] no hx of being on meclizine in Epic or Care Team Connect * Telephone Encounter - Evelio Guevara - 12/30/2022 1:02 PM EST Tc from pt requesting a Script for Meclazine that helps pt with her ongoing lightheadedness. Please contact pt at [phone] documented in this encounter Plan of Treatment Upcoming Encounters Date Type Department Care Team (Late st Contact Info) Description 04/18/2025 11:15 AM EDT Office Visit [facility] 230 [place] [address] Gerry Echavarria MD 230 [place] [address] documented as of this encounter [...] giddiness documented in this encounter Care Teams Broadcast Meteorologist Relationship Specialty Start Date End Date Gerry Echavarria MD 230 [place] [address] PCP - General Internal Medicine 07/26/14 Theron New Management Retail InternChildren Librarian 01/08/24 [facility] 09/28/24 documented as of this encounter
--- OUTSIDE RECORDS SUMMARY | 2025-02-03 14:46 | XMS_ITS | Encounter Summary ---
Author Organization [facility] Address [address] [place] [address] 7 [place] [address] Care Team Providers Care 7Th Grade Social Studies Teacher Name Role Phone Gerry Echavarria MD Primary Care Provide r Reason for Referral * Consultation (Routine) - Authorized Specialty Diagnoses / Procedures Referred By Contsanket t Referred To Contact Urology Diagnoses Nephrolithiasis Krystina Haji MD [address] [place] [address] Phone: tel: fax: [facility] Referral ID Status Reason Start Date Expiration Date Visits Requested Visits Authorized [id number] Authorized Specialty Services Required 01/24/2025 01/24/2026 6 6 Encounter Details Date Type Department Care Team (Late st Contact Info) Description 01/21/2025 Orders Only [facility] [address] [place] [phone] Krystina Haji MD 230 [place], [place] [phone] Nephrolithiasis (Primary Dx) Social History Tobacco Use Types Packs/Day Years Used Date Smoking Tobacco: Former Cigarettes 1.5 20 1 989 - 2009 Passive Smoke Exposure: Past Smokeless Tobacco: Never [...] Description 04/18/2025 11:15 AM EDT Office Visit [facility] 230 [place] [address] Gerry Echavarria MD 230 [place] [address] Scheduled Referrals Name Type Priority Associated Diagnoses Orde r Schedule Referral to Urology Outpatient Referral Routine Nephrolithiasis Expected: 01/21/2025 (Approximate), Expires: 01/21/2026 documented as of this encounter Goals Goal [...] as of this encounter Visit Diagnoses Diagnosis Nephrolithiasis- Primary Calculus of kidney documented in this encounter Additional Health Concerns Assessment Noted Time PHQ-9 Depression Total Score: 11 11:14 AM EST documented as of this encounter Care Teams 7Th Grade Social Studies Teacher Relationship Specialty Start Date End Date Gerry Echavarria MD [address] [place] [address] PCP - General Internal Medicine 07/26/14 Theron New Devops ArchitectPsych Sales Specialist 01/08/24 [facility] 09/28/24 documented as of this encounter
--- OUTSIDE RECORDS SUMMARY | 2025-02-03 14:46 | XMS_ITS | Encounter Summary ---
Author Organization [employer] Address 75 [facility] 7t [place] [address] Care Team Providers Care Cutter Hand Name Role Phone Gerry Echavarria MD Primary Care Provide r Reason for Visit * Reason Comments Med Refill Encounter Details Date Type Department Care Team ([facility] st Contact Info) Description 09/22/2023 Refill [facility] MEDICINE 230 [place], [place] [phone] Mala Williamson, ANP 230 [place] [address] Diarrhea, unspecified type; Irritable bowel syndrome, unspecified [...] Description 04/18/2025 11:15 AM EDT Office Visit [facility] MEDICINE 230 [place] [address] Gerry Echavarria MD 230 [place] [address] documented as of this encounter Goals Goal [...] documented as of this encounter Care Teams Cutter Hand Relationship Specialty Start Date End Date Gerry Echavarria MD [address] [place] [address] PCP - General Internal Medicine 07/26/14 Theron New Aviation Electrical TechnicianTeacher Aide 01/08/24 [facility] 09/28/24 documented as of this encounter
--- OUTSIDE RECORDS SUMMARY | 2025-02-03 14:46 | XMS_ITS | Encounter Summary ---
Author Organization [employer] Address 75 [facility] 7t [place] [address] Care Team Providers Care Photo Print Specialist Name Role Phone Gerry Echavarria MD Primary Care Provide r Reason for Visit * Reason Comments Med Refill Encounter Details Date Type Department Care Team (Late st Contact Info) Description 11/13/2023 Refill [facility] MEDICINE 230 [place], [place] [phone] Krystina Haji MD 230 [place], [place] [phone] Chronic migraine without aura without status migrainosus, [...] Description 04/18/2025 11:15 AM EDT Office Visit [facility] MEDICINE 230 [place], [place] [phone] Gerry Echavarria MD 230 [place], [place] [phone] documented as of this encounter Goals Goal [...] documented as of this encounter Care Teams Photo Print Specialist Relationship Specialty Start Date End Date Gerry Echavarria MD [address] [place] [address] PCP - General Internal Medicine 07/26/14 Theron New Reservoir EngineerA Operator 01/08/24 [facility] 09/28/24 documented as of this encounter
--- OUTSIDE RECORDS SUMMARY | 2025-02-03 14:47 | XMS_ITS | Encounter Summary ---
Author Organization [employer] [facility] Address [address] [place] [address] 7 [place] [address] Care Team Providers Care Android Programmer Name Role Phone Gerry Echavarria MD Primary Care Provide r Reason for Visit * Reason Comments Med Refill Encounter Details Date Type Department Care Team ([facility] st Contact Info) Description 04/04/2023 Refill [facility] MEDICINE 230 [place], [place] [phone] Mala Williamson, ANP 230 [place] [address] Diarrhea, unspecified type; Irritable bowel syndrome, unspecified [...] Description 04/18/2025 11:15 AM EDT Office Visit [facility] MEDICINE 230 [facility] [place] [address] Gerry Echavarria MD 230 [place] [address] documented as of this encounter Goals Goal [...] documented as of this encounter Care Teams Android Programmer Relationship Specialty Start Date End Date Gerry Echavarria MD 230 [facility] [place] [address] PCP - General Internal Medicine 07/26/14 Theron New Sales And Merchandising RepresentativeRegistration Manager 01/08/24 [facility] 09/28/24 documented as of this encounter
--- OUTSIDE RECORDS SUMMARY | 2025-02-03 14:47 | XMS_ITS | Patient Health Record ---
Author Organization [facility] Address [address] [place] [address] Care Team Providers Care Industrial Tractor Driver Name Role Phone Shantell Whitehead MD, Gerry Primary Care Provide Wesley Montalvo Jr Unavailable [phone] 2 Allergies Allergen (clinical drug ingredient) Drug/Non Drug Allergy documented on EMR Reaction Allergy Type Onset Date Status shrimp allergenic extract Shrimp (Diagnostic) Unknown Drug Allergy Active Penicillin Unknown Drug Allergy Active Results Component Value Reference Range Notes Pathology Reviewed date:02/25/2024 09:37:02 AM Interpretation: Performing Lab:[facility], [address] [place] [phone] Notes/Report: Name: Cherelle Smith Age/Sex: 48/F : 1975 Unit#: [id number] Attend Dr: Wesley Olivo MD Re02/12/24 Status : [facility] Location: [facility] Disch: SPEC : [id number] RECD : 02/12/240 STATUS: JOSÉ LUIS HECK NUM: [id number] TRAY: 02/12/24-[address] [facility] [address]: Wesley Olivo MD ENTERED: 02/12/24-13 28 [...] Cherelle Smith Age/Sex: 48/F : 1975 Unit#: [id number] Attend Dr: Wesley Olivo MD Re02/12/24 Status : [facility] Location: [facility] Disch: SPEC : [id number] RECD : 02/12/24-1320 STATUS: JOSÉ LUIS HECK NUM: [id number] TRAY: 02/12/24-[address] [facility] [address]: Wesley Olivo MD ENTERED: 02/12/24- SP [...] copic examination, 2 pieces in cassette [facility] Special studies orde red and performed: Immunostain for H. pylori on B1; AB/PAS stains on A1, B1, and C1. Copies To: Wesley Olivo MD [address] [place] [address] [id number] [place] [id number] Gerry Lopez MD [address] [facility] [place] [id number] Signed (si gnature on file) Tamy Lowe 02/17/24 1244 END OF REPORT Reason For Referral Referring Provider First Name Gerry Referring Provider Last Name Shantell sellers Referring Provider Speciality Internal M edicine Referred Organization [facility] Referred Provider Wesley Olivo Jr Referred Address [address] [place] [address],[place] [address],[place],[phone], Referred Provider Specialty Gastroentero logy Referral Priority [...] Problem Status W/U Status Risk Notes Problem [id number] Abnormal finding s in stool (R19.5) Active confirmed Problem [id number] H. pylori infection (A04.8) Active confirmed Problem [id number] Gastroesophageal reflux disease, unspecified whether esophagitis present (K21.9) Active confirmed Problem Gastroesophageal reflux disease (581228339) Chronic GERD (K21.9) Active confirmed Encounters Encounter Location Date Provider Diagnosis [facility] Outpatient [address] [place], [place] [id number] 02/12/2024 Wesley Olivo Jr Abnormal findings in stool R19.5 ; Colon polyps K63.5 and Chronic GERD K21.9 [facility] [address] [place] [address] 02/24/2024 Wesley Olivo Jr H. pylori infection A04.8 Assessments Encounter Date Diagnosis (ICD Code) Assessment Notes Treatment Notes Treatment Clinical Notes Section Notes 02/12/2024 Colon polyps (ICD-10 - K63.5) 02/12/2024 Abnormal findings in stool (ICD-10 - R19.5) 02/24/2024 H. pylori infection (ICD-10 - A04.8) 02/12/2024 Chronic GERD (ICD-10 - K21.9) Plan Of Treatment Pending Test Test Name Order Date H PYLORI AG, STOOL 02/24/2024 Future Test Test Name Order Date UPPER GI ENDOSCOPY 05/02/2015 UPPER GI ENDOSCOPY 01/13/2024 COLONOSCOPY 01/13/2024 Next Appt Details Provider Name:Wesley ferrer Jr, 04/10/2025 10:40:00 AM, [address] [place] [address], [address], [place], [address], Insurance Providers Payer Name Payer Address Payer Phone Subscriber Number Group Number Insured Name Patient Relationship to Insured Coverage Start Date Coverage End Date MEDICA[employer] [place] [employer] [address] [place] [phone] [id number] CHERELLE FLOREZ Self - patient is the insured Medical (General) History Medical History History ICD Code esophageal reflux, EGD 05/16, no [place]' s esophagus or H. pylori. Headaches Allergic rhinitis Insomnia Fibromyalgia Osteoarthritis Diabetes mellitus type 2 Surgical History Surgery Date(Month/Year) tonsillectomy tubal ligation
--- OUTSIDE RECORDS SUMMARY | 2025-02-03 14:47 | XMS_ITS | Encounter Summary ---
Author Organization [facility] Address [address] [place] [address] 7 [place] [address] Care Team Providers Care Parlor Maid Name Role Phone Gerry Echavarria MD Primary Care Provide r Reason for Visit * Reason Onset Date Comments Nurse Triage 04/06/2023 Encounter Details Date Type Department Care Team ([facility] st Contact Info) Description 04/06/2023 Telephone [facility] MEDICINE [address] [place], [place] [phone] Gerry Echavarria MD [address] [place] [address] Nurse Triage Social History Tobacco Use Types [...] 04/06/2023 4:58 PM EDT Triage call with [place] Field Organizer [place] [id number] Pt reports cough, sore throat, headache and [...] negative. Pt is advised to come to [facility] today to be seenand Pt agrees with [...] Getting worse The caller accepted this outcome (Vincentian speaker) documented in this encounter Plan of Treatment Upcoming Encounters Date Type Department Care Team (Late st Contact Info) Description 04/18/2025 11:15 AM EDT Office Visit [facility] MEDICINE [address] [place], [place] [phone] Gerry Echavarria MD [address] [place], [place] [phone] documented as of this encounter Goals Goal [...] documented as of this encounter Care Teams Parlor Maid Relationship Specialty Start Date End Date Gerry Echavarria MD [address] [place], [place] [phone] PCP - General Internal Medicine 07/26/14 Theron New Drawing Frame TenderLiquor Maker 01/08/24 [facility] 09/28/24 documented as of this encounter
--- OUTSIDE RECORDS SUMMARY | 2025-02-03 14:47 | XMS_ITS | Encounter Summary ---
Author Organization [facility] Address [address] [place] [address] 7 [place] [address] Care Team Providers Care Rodeo Performer Name Role Phone Gerry Echavarria MD Primary Care Provide r Reason for Visit * Reason Onset Date Comments Med Refill 11/07/2024 Encounter Details Date Type Department Care Team ([facility] st Contact Info) Description 11/07/2024 Refill [facility] MEDICINE [address] [place], [place] [phone] Name, MD Wai [address] [place] [address] Fibromyalgia Social History Tobacco Use Types Packs/Day [...] [facility] [address] [place] [address] Gerry Echavarria MD [address] [place] [address] documented as of this encounter Goals Goal [...] documented as of this encounter Care Teams Rodeo Performer Relationship Specialty Start Date End Date Gerry Echavarria MD [address] [place] [address] PCP - General Internal Medicine 07/26/14 Theron New Tanker Service AttendantWood Carver 01/08/24 [facility] 09/28/24 documented as of this encounter
--- OUTSIDE RECORDS SUMMARY | 2025-02-03 14:47 | XMS_ITS | Encounter Summary ---
Author Organization [employer] Address [address] [facility] 7t [place] [address] Care Team Providers Care Sld Inclusion Teacher Name Role Phone Gerry Echavarria MD Primary Care Provide r Reason for Visit * Reason Comments Med Refill Encounter Details Date Type Department Care Team ([facility] st Contact Info) Description 03/24/2024 Refill [facility] MEDICINE [address] [place] [address] Name, MD Wai [address] [place] [address] Seasonal allergies Social History Tobacco Use Types [...] Description 04/18/2025 11:15 AM EDT Office Visit [facility] MEDICINE [address] [place] [address] Gerry Echavarria MD [address] [place] [address] documented as of this encounter Goals Goal [...] documented as of this encounter Care Teams Sld Inclusion Teacher Relationship Specialty Start Date End Date Gerry Echavarria MD [address] [place] [address] PCP - General Internal Medicine 07/26/14 Theron New Divisional Human Resources DirectorHospice Community Liaison 01/08/24 [facility] 09/28/24 documented as of this encounter
--- OUTSIDE RECORDS SUMMARY | 2025-02-03 14:47 | XMS_ITS ---
Author Organization [facility] Address [address] [facility] [address] [place] [phone] Care Team Providers Care Yard Brakeman Name Role Phone Shantell Whitehead MD, Gerry Primary Care Provide r Itz Olivo Jr, Wesley Unavailable REASON FOR VISIT gerd,abn findings in stool Problems Problem Type SNOMED Code ICD Code Onset Dates Problem Status W/U Status Risk Notes Problem Gastroesophageal reflux disease (674567173) Chronic GERD (K21.9) Active confirmed Encounters Encounter Location Date Provider Diagnosis [facility] [place] [address] [place] [phone] 02/12/2024 Wesley Olivo Jr Abnormal findings in [...] Name:Wesley ferrer Jr, 04/10/2025 10:40:00 AM, [address], [address], [place], [address], Progress Notes * FLOREZCHERELLE BEANDOB: 6 (49 yo F)Acc No.[id number]:02/12/2024 EGD and COL/MAC Patient:?LEISA FLOREZARIS Provider:?Wesley Olivo MD :1975???Age:48 Y???Sex:Female D ate:02/12/2024 Address: [place], [id number] Pcp:Gerry flores MD Subjective: * Chief Complaints: * ???1. Gerd,abn findings in s tool. * Medical History:? Objective: * Vitals:? Assessment: * Assessment: 1.?Abnormal findings in stoo l - R19.5 (Primary)???2.?Colon polyps - K63.5???3.?Chronic GERD - K21.9??? Plan: * Treatment: * Procedure Codes:?78978 LESIO N REMOVAL COLONOSCOPY, 88894 UPPER GI ENDOSCOPY, BIOPSY * * The named appointment provid er may or may not be the originator of this progress note, and it is not deemed complete until electronically signed by the appointment provider. Sign off status: Pending * Provider:?Wesley Olivo MD Date:?0 02/12/2024 Generated for Ada thompson/Tiff/eTransmitting on:?02/03/2025 02:46 PM EDT
--- OUTSIDE RECORDS SUMMARY | 2025-02-03 14:47 | XMS_ITS | Encounter Summary ---
Author Organization [facility] Address [address] [place] [address] 7[address] [place] [address] Care Team Providers Care Sql Server Dba Name Role Phone Gerry Echavarria MD Primary Care Provide r Encounter Details Date Type Department Care Team (Late Contact Info) Description 04/13/2023 Abstract [facility] MEDICINE [address] [place], [place] [phone] Gerry Echavarria MD [address] [place] [address] Social History Tobacco Use Types Packs/Day Years [...] Description 04/18/2025 11:15 AM EDT Office Visit [facility] [address] [facility] [place] [address] Gerry Echavarria MD [address] [facility] [place] [address] documented as of this encounter Goals Goal [...] On track( 024 4:06 PM EDT) Angel Adam PharmD Note: inactive, advised some amount of cardio can help with heart health documented as of this encounter Visit Diagnoses Not on filedocumented in this encounter Additional Health Concerns Assessment Noted Time PHQ-9 Depression Total Score: 11 023 2:03 PM EDT documented as of this encounter Care Teams Sql Server Dba Relationship Specialty Start Date End Date Gerry Echavarria MD [address] [facility] [place] [address] PCP - General Internal Medicine 07/26/14 Theron New Lactation NurseBlock Mason 01/08/24 [facility] Care 09/28/24 documented as of this encounter
== END 2025-02-03 13:31 | disposition home or self-care (01) ==
LOC: HO.RHE 12:56
PROVIDERS: PCP Internal Medicine; Visit Provider Student in an Organized Health Care Education/Training Program
DX: M15.9 Polyosteoarthritis, unspecified (principal); M47.816 Spondylosis without myelopathy or radiculopathy, lumbar region; R76.8 Other specified abnormal immunological findings in serum; M79.7 Fibromyalgia
CPT/HCPCS: 99213

== ENCOUNTER → 2025-02-03 12:55 | Outpatient (BNVA) | payer MEDICAID, SELFPAY | PROVIDERS: PCP Internal Medicine; Visit Provider Student in an Organized Health Care Education/Training Program | DX: M15.9 Polyosteoarthritis, unspecified (principal); M47.816 Spondylosis without myelopathy or radiculopathy, lumbar region; M79.7 Fibromyalgia; R76.8 Other specified abnormal immunological findings in serum | CPT/HCPCS: 99212 ==

== ENCOUNTER 2025-02-08 10:13 | Emergency (ER) | payer MEDICAID, SELFPAY ==
--- NOTE | ~2025-02-08 | CT_ITS ---
EXAMINATION: CT ABDOMEN PELVIS WITH IV CONTRAST HISTORY: epigastric tenderness, ? pancreatitis, LLQ pain COMPARISON: Comparison is made with the prior examination dated 01/19/2025. TECHNIQUE: CT scan of the abdomen and pelvis was performed following administration of 85 mL Omnipaque 350 using standard departmental protocol. Coronal and sagittal reformatted images were generated and reviewed. Oral contrast material was not administered at the request of the referring physician. This CT exam was performed with one or more of the following dose reduction techniques: automated exposure control, adjustment of the mA and/or kV according to patient size, use of iterative reconstruction technique. DLP: 761 mGy-cm FINDINGS: LOWER CHEST: The visualized lung bases are clear. There is no pleural effusion. CARDIOVASCULATURE: The heart is normal in size. There is no pericardial effusion. LIVER: The liver is normal in size and contour. No liver mass is identified. The hepatic and portal veins are patent. GALLBLADDER / BILE DUCTS: The gallbladder is unremarkable. There is no intra or extrahepatic biliary ductal dilatation. SPLEEN: The spleen is normal in size. No focal splenic lesion is identified. PANCREAS: The pancreas is unremarkable in appearance. No peripancreatic inflammatory stranding or fluid is identified to suggest acute pancreatitis. ADRENAL GLANDS: Within normal limits. KIDNEYS/RETROPERITONEUM: Again seen is a punctate nonobstructing calculus at the upper pole of the right kidney. There is no hydronephrosis. Again seen is a 1.7 cm cyst at the lower pole of the left kidney. LYMPH NODES: No abdominal or pelvic lymphadenopathy. VASCULATURE: The abdominal aorta is normal in caliber. MESENTERY/PERITONEUM: No free fluid. No masses. There is no free intraperitoneal gas. STOMACH: The stomach is collapsed, limiting evaluation. SMALL BOWEL: The small bowel is normal in caliber. COLON: There are occasional diverticuli of the sigmoid colon, without evidence of diverticulitis. APPENDIX: Normal. URINARY BLADDER/PELVIC ORGANS: The urinary bladder is unremarkable. The uterus and left ovary are unremarkable. There is a 3.3 cm oval right ovarian cyst. BONES / SOFT TISSUES: No suspicious bony or soft tissue abnormalities. CT/CT abdomen pelvis w IV con IMPRESSION: 1. No CT evidence of acute pancreatitis. 2. Punctate nonobstructing right upper pole renal calculus. 3. Probable 3.7 cm right ovarian cyst. This could be further evaluated with ultrasound. 4. Sigmoid diverticulosis without evidence of diverticulitis. Electronically signed by: Edwin Ronquillo MD 02/08/2025 01:46 PM EDT
[2025-02-08 10:22] VITALS: BP 113/65; PULSE 60; RESP 18; TEMP 36.7; O2SAT 98; BMI 33.5
[2025-02-08 10:47] LABS: MANUAL DIFF FLAG NO
[2025-02-08 10:51] LABS: Appearance Urine Clear; Color Urine Dark Yellow; Glucose Urine UA 500 mg/dL (Negative); Leukocyte Esterase Urine Negative (Negative); Nitrite Urine Negative (Negative); Specific Gravity - Urine >= 1.030 (1.005-1.025); Urine Blood Negative (Negative); Urine Ketones Trace mg/dL (Negative); Urine Protein Negative (Neg-Trace)
[2025-02-08 10:52] LABS: Basophils Percent Auto 0.4 % (0-2); Eosinophils Absolute Auto 0.1 X10*3/uL (0.0-0.4); Eosinophils Percent Auto 1.3 % (0-4); Hematocrit 37.7 % (37.0-47.0); Hemoglobin 12.3 g/dl (12.0-16.0); Imm Gran Abs Auto 0.04 X10*3/uL (0.00-0.03); Imm Gran Pct Auto 0.5 % (0.0-0.4); Lymphocytes Percent Auto 25.6 % (20-40); Mean Corpuscular HGB Conc 32.6 g/dl (31.0-35.0); Mean Corpuscular Volume 88.9 fL (80.0-98.0); Mean Platelet Volume 10.1 fL (9.4-12.3); Monocytes Absolute Auto 0.6 X10*3/uL (0.1-1.2); Monocytes Percent Auto 7.5 % (2-11); Neutrophils Percent Auto 64.7 % (45-73); Platelet Count 278 X10*3/uL (160-400); Red Blood Count 4.24 X10*6/uL (4.20-5.50); Red Cell Distribution Width 13.5 % (11.0-16.0); White Blood Count 7.8 X10*3/uL (4.8-10.8)
[2025-02-08 11:06] LABS: Alanine Aminotransferase 19 U/L (0-31); Albumin Level 3.9 g/dL (3.5-5.0); Alkaline Phosphatase 83 U/L (39-117); Anion Gap 11 (12-20); Aspartate Amino Transferase 19 U/L (5-31); Bilirubin Direct 0.2 mg/dL (0.0-0.5); Bilirubin Total 0.4 mg/dL (0.0-1.0); Blood Urea Nitrogen 19 mg/dL (9-16); Calcium 10.1 mg/dL (8.4-10.2); Carbon Dioxide 26 mmol/L (22-29); Chloride 104 mmol/L (96-108); Creatinine Clr Calc Pharmacy 85.3; Estimated Glomerular Filt Rate > 60; Glucose Random 173 mg/dL (60-115); Potassium 3.9 mmol/L (3.3-5.1); Sodium 137 mmol/L (135-145); Total Protein 6.9 g/dL (6.5-8.0)
--- NOTE | 2025-02-08 12:20 | ED_ITS ---
HPI - Abdominal Pain General Chief Complaint: Abdominal Pain Stated Complaint: abd pain when touched Time Seen by Provider: 02/08/25 11:48 Source: patient Mode of arrival: ambulatory Limitations: no limitations History of Present Illness ED Provider: Collins Kelley DO HPI narrative: 49-year-old female with past medical history of GERD, recent right-sided ureteral stone, fibromyalgia and arthritis presents to the ED due to constant upper abdominal pain that radiates to the right upper quadrant since 2 nights ago. Patient states the pain is worse with deep breaths, palpating the area, lying supine or with movement. She denies any injuries or recent exertional activities. She denies shortness of breath, vomiting, diarrhea or constipation. The pain does not radiate to the back. She has not had this pain in the past. She took naproxen at home without relief. Or severe urinary symptoms. No flank pain. Does not feel like her typical GERD symptoms. Related Data Home Medications ?Medication ?Instructions ?Recorded ?Confirmed cetirizine 10 mg tablet 1 tab PO DAILY 01/09/21 02/03/25 topiramate 50 mg tablet 1 tab PO DAILY headache 01/09/21 02/03/25 acetaminophen 650 mg 650 mg PO Q8H PRN mild pain 04/30/23 02/03/25 tablet,extended release buspirone 30 mg tablet 30 mg PO BID 04/30/23 02/03/25 [id number]-[id number]-[id number] 1 - 2 tab PO Q6-8H PRN Migraine 04/30/23 02/03/25 50 mg-325 mg-40 mg tablet Headache citalopram 10 mg tablet 20 mg PO DAILY 04/30/23 02/03/25 clonazepam 1 mg tablet 1.5 mg PO BEDTIME 04/30/23 02/03/25 diphenhydramine HCl 25 mg capsule 50 mg PO Q4-6H PRN Anxiety 04/30/23 02/03/25 (Banophen) fluticasone propionate 50 2 spray intranasal DAILY 04/30/23 02/03/25 mcg/actuation nasal spray,suspension ketoconazole 2 % shampoo 1 appl topical 2XW 04/30/23 02/03/25 lidocaine 5 % topical patch 1 patch transdermal Q3D PRN pain 04/30/23 02/03/25 lisinopril 10 mg tablet 10 mg PO DAILY 04/30/23 02/03/25 sodium chloride 0.65 % nasal spray 1 - 2 spray intranasal Q2-3H PRN 04/30/23 02/03/25 aerosol (Saline Nasal) congestion clindamycin phosphate 1 % topical 1 appl topical DAILY 06/24/23 02/03/25 solution tacrolimus 0.1 % topical ointment 1 appl topical DIRECTED 06/24/23 02/03/25 venlafaxine 150 mg 150 mg PO QAM 06/24/23 02/03/25 capsule,extended release 24 hr dicyclomine 20 mg tablet 20 mg PO .COMPLEX 07/13/23 02/03/25 hydrocortisone 2.5 % topical 1 appl topical BID 08/18/23 02/03/25 ointment cyclobenzaprine 5 mg tablet 5 mg PO TID 06/14/24 02/03/25 celecoxib 100 mg capsule 100 mg PO BID 02/03/25 02/03/25 cholecalciferol (vitamin D3) 10 10 mcg PO DAILY 02/03/25 02/03/25 mcg (400 unit) capsule metformin 500 mg tablet 500 mg PO DAILY 02/03/25 02/03/25 omeprazole 20 mg capsule,delayed 20 mg PO BID 02/03/25 02/03/25 release Previous Rx's ?Medication ?Instructions ?Recorded gabapentin 100 mg capsule 200 mg (2 x 100 mg) PO TID #180 03/14/24 caps naproxen 500 mg tablet 500 mg PO BID PRN pain 10 days #20 01/19/25 tabs tamsulosin 0.4 mg capsule (Flomax) 0.4 mg PO DAILY #14 caps 01/19/25 tramadol 50 mg tablet 50 mg PO Q6H PRN pain #20 tabs 02/03/25 Allergies Allergy/AdvReac Type Severity Reaction Status Date / Time penicillin G [PENICILLIN G] Allergy Severe ANAPHYLAXIS Verified 02/08/25 10:25 shrimp Allergy Severe Anaphylaxis Verified 02/08/25 10:25 Penicillins [PCN] Allergy Unknown Verified 02/08/25 10:25 Review of Systems Review of Systems Yes all other systems are reviewed and are negative [facility] Past Medical History Medical History (Updated 02/08/25 @ 17:13 by Collins Kelley DO) Fibromyalgia Epidermal cyst Pes cavus of both feet Allergies Headache GERD (gastroesophageal reflux disease) Surgical History History of removal of cyst (~06/27/24) History of shoulder surgery History of tubal ligation Hx of tonsillectomy Family History Family History Mother Arthritis Father Diabetes Social History Social History Household Members: Significant Other Are you a primary wound care physician to a significant other at home: No Do you presently have visiting nurse or other home services: No Alcohol intake: former Patient Tobacco Use Status: Former Tobacco user Current occupational status: employed and unemployed Physical Exam ED Vital Signs: Vital Signs - 24 hr 02/08/25 10:22 02/08/25 15:28 Temperature 98.0 F 98.7 F Pulse Rate 60 52 Respiratory Rate 18 16 Blood Pressure 113/65 122/74 Pulse Oximetry 98 100 Oxygen Delivery Method Room Air Room Air BMI result Body Mass Index 33.5 Constitutional: ?Alert, oriented, speaking in full sentences HEENT: ?Normocephalic, atraumatic. ?Moist mucous membranes Eyes: ?PERRL, EOMI Neck: ?Supple, nontender Chest: ?No chest wall tenderness Respiratory: ?Lungs clear to auscultation, no increased work of breathing Cardio: ?Regular rate and rhythm, no murmur, 2+ radial and DP pulses symmetrically GI: ?Soft, nondistended, moderate tenderness to palpation over the epigastrium. No right upper quadrant tenderness, no Rider's sign, no right lower quadrant tenderness, some mild tenderness of the left lower quadrant. Back: ?Normal range of motion, nontender Skin: ?No rash, no lesions Neuro: ?Alert and oriented to person, place and time, moves all 4 extremities, no focal deficits Extremities: ?No swelling or tenderness, full range of motion Psych: ?Calm, alert and cooperative, appropriate behavior Medical Decision Making Medical Decision Making MDM Narrative: Patient presenting with epigastric pain over the past couple of days. There are no peritoneal signs. She is overall well-appearing and vitally stable. However she does have tenderness to palpation focally over the epigastrium as well as a little bit over the left lower quadrant. When she goes from the sitting position to supine position during my exam she experiences a fair amount of pain and discomfort. Therefore we will undergo CT imaging to evaluate further for possible etiologies such as pancreatitis or diverticulitis. She has no exam findings consistent with unremarkable hepatic function. CBC is unremarkable. There is consideration for ACS given the upper abdominal pain. Although the patient has pleuritic chest pain, it appears to be most severe when lying supine and she has no risk factors or exam findings or vital sign abnormalities concerning for pulmonary embolism. ECG per my independent interpretation shows sinus bradycardia at 54 beats per minute, normal axis, unremarkable intervals, no diagnostic ST or T-wave abnormalities, no significant change compared to prior dated 01/19/2025. Patient's pain improved from a 7/10 to a 4-10 with Bentyl, GI cocktail and ketorolac. It was consideration for peptic ulcer disease. The patient continues to be vitally stable. We will encourage her to continue her omeprazole and follow up with her primary care provider and possible gastroenterology. He has no lower abdominal discomfort or tenderness on re- evaluation multiple times and therefore there is no concern for ovarian torsion. Her symptoms have been constant. Imaging shows right ovarian cyst. This has been discussed with the patient and she will follow up with her doctor regarding this. No other acute findings noted, including pancreatitis or diverticulitis. We discussed diverticulosis findings and we will provide instructions on diet.. Admission/Observation Consideration of admission/observation: Escalation of care including admission/observation considered Lab Data MDM Lab Attestation statement: I reviewed the patient's lab results. 02/08/25 10:43 02/08/25 10:43 Labs: Lab Results 02/08/25 Range/Units 10:43 WBC 7.8 (4.8-10.8) X10*3/uL RBC 4.24 (4.20-5.50) X10*6/uL Hgb 12.3 (12.0-16.0) g/dl Hct 37.7 (37.0-47.0) % MCV 88.9 (80.0-98.0) fL MCH 29.0 (27.0-33.0) pg MCHC 32.6 (31.0-35.0) g/dl RDW 13.5 (11.0-16.0) % Plt Count 278 (160-400) X10*3/uL MPV 10.1 (9.4-12.3) fL Immature Gran % (Auto) 0.5 H (0.0-0.4) % Neut % (Auto) 64.7 (45-73) % Lymph % (Auto) 25.6 (20-40) % [place] % (Auto) 7.5 (2-11) % Eos % (Auto) 1.3 (0-4) % Baso % (Auto) 0.4 (0-2) % Lymph # (Auto) 2.0 (1.2-4.9) X10*3/uL [place] # (Auto) 0.6 (0.1-1.2) X10*3/uL Eos # (Auto) 0.1 (0.0-0.4) X10*3/uL Baso # (Auto) 0.0 (0.0-0.2) X10*3/uL Abs Immat Gran (auto) 0.04 H (0.00-0.03) X10*3/uL Absolute Neuts (auto) 5.0 (2.0-8.3) x10*3/uL Absolute Nucleated RBC 0.000 (0.0-0.012) X10*3/uL Nucleated RBC % (auto) 0.0 (0.0-0.2) /100WBC Sodium 137 (135-145) mmol/L Potassium 3.9 (3.3-5.1) mmol/L Chloride 104 (96-108) mmol/L Carbon Dioxide 26 (22-29) mmol/L Anion Gap 11 L (12-20) BUN 19 H (9-16) mg/dL Creatinine 0.90 (0.5-1.4) mg/dL Estim Creat Clear Calc 85.3 Estimated GFR > 60 Random Glucose 173 H (60-115) mg/dL Calcium 10.1 D (8.4-10.2) mg/dL Total Bilirubin 0.4 (0.0-1.0) mg/dL Direct Bilirubin 0.2 (0.0-0.5) mg/dL AST 19 (5-31) U/L ALT 19 (0-31) U/L Alkaline Phosphatase 83 (39-117) U/L Troponin I High Sens < 2.7 (<3.5-17.0) ng/L Total Protein 6.9 (6.5-8.0) g/dL Albumin 3.9 (3.5-5.0) g/dL Lipase 30 (8-78) U/L Beta HCG, Quant < 2 mIU/mL Urine Color Dark Yellow Urine Appearance Clear Urine pH 5.0 (5.0-9.0) Ur Specific [place] >= 1.030 H (1.005-1.025) Urine Protein Negative (Neg-Trace) mg/dL Urine Glucose (UA) 500 H (Negative) mg/dL Urine Ketones Trace (Negative) mg/dL Urine Blood Negative (Negative) Urine Nitrite Negative (Negative) Ur Leukocyte Esterase Negative (Negative) Medications Administered Discontinued Medications Generic Name Dose Route Start Last Admin Trade Name Freq PRN Reason Stop Dose Admin Al Hydroxide/Mg Hydroxide 30 ml 02/08/25 15:16 02/08/25 15:27 Magnesium Hydrox/Alum Hydrox 30 Ml Oral.Susp PO 02/08/25 15:17 30 ml ONCE ONE Administration Belladonna Alkaloids/Phenobarbital 10 ml 02/08/25 15:16 02/08/25 15:26 Phenobarb/Hyoscy/Atropine/Scop 10 Ml Elixir PO 02/08/25 15:17 10 ml ONCE ONE Administration Dicyclomine HCl 10 mg 02/08/25 16:11 02/08/25 16:22 Dicyclomine Hcl 10 Mg Capsule PO 02/08/25 16:12 10 mg ONCE ONE Administration Acetaminophen 1,000 mg in 100 mls @ 400 mls/hr 02/08/25 12:39 02/08/25 13:12 Ofirmev IV 02/08/25 12:53 Infused ONCE ONE Infusion Iohexol 100 ml 02/08/25 13:12 02/08/25 13:12 Iohexol 350 Mg/Ml 100 Ml Infus..Btl IV 02/08/25 13:13 85 ml ONCE ONE Administration Ketorolac Tromethamine 15 mg 02/08/25 15:16 02/08/25 15:24 Ketorolac Tromethamine 15 Mg/Ml Vial IVPUSH 02/08/25 15:17 15 mg ONCE ONE Administration Discharge Plan Discharge Clinical Impression: Acute epigastric pain Patient Disposition: Home, Self-Care Instructions: Ovarian Cyst (ED), Peptic Ulcer (ED), Gastritis (ED), Diverticulosis (ED), Epigastric Pain (ED) Additional Instructions: Se le evalu? por dolor abdominal superior y se le trat? con m?ltiples medicamentos. Hallazgos en sapna pruebas de laboratorio o im?genes de TAC. Hay hallazgos incidentales kushal a continuaci?n incluyendo kenji de la rodilla que no est? causando el dolor, un quiste ov?rico que debe ser evaluado m?s a fondo kushal un paciente ambulatorio, y diverticulosis que requiere josué dieta keke en fibra para ayudar a prevenir la infecci?n de la inflamaci?n. Sapna s?ntomas pueden deberse a josué irritaci?n o a josué ?lcera de est?junaid. Debido a esto queremos que suspenda cualquier medicamento antiinflamatorio no esteroideo incluyendo Celecoxib, naproxeno, Advil o ibuprofeno. contin?e con el omeprazol en casa y frank un seguimiento con wyatt m?dico. Tambi?n debe consultar a un gastroenter?logo para josué evaluaci?n adicional si los s?ntomas no mejoran. 1. No CT evidence of acute pancreatitis. 2. Punctate nonobstructing right upper pole renal calculus. 3. Probable 3.7 cm right ovarian cyst. This could be further evaluated with ultrasound. 4. Sigmoid diverticulosis without evidence of diverticulitis. Prescriptions: No Action cetirizine 10 mg tablet 1 tab PO DAILY topiramate 50 mg tablet 1 tab PO DAILY tamsulosin [Flomax] 0.4 mg capsule 0.4 mg PO DAILY Qty: 14 0RF naproxen 500 mg tablet 500 mg PO BID PRN (Reason: pain) 10 Days Qty: 20 0RF ketoconazole 2 % shampoo 1 appl topical 2XW buspirone 30 mg tablet 30 mg PO BID Saline Nasal 0.65 % aerosol,spray 1 - 2 spray intranasal Q2-3H PRN (Reason: congestion) lidocaine 5 % adhesive patch,medicated 1 patch transdermal Q3D PRN (Reason: pain) diphenhydramine HCl [Banophen] 25 mg capsule 50 mg PO Q4-6H PRN (Reason: Anxiety) lkfhmarcex-tywlaybazdwif-myar 50-325-40 mg tablet 1 - 2 tab PO Q6-8H PRN (Reason: Migraine Headache) acetaminophen 650 mg tablet extended release 650 mg PO Q8H PRN (Reason: mild pain) clonazepam 1 mg tablet 1.5 mg PO BEDTIME lisinopril 10 mg tablet 10 mg PO DAILY fluticasone propionate 50 mcg/actuation spray,suspension 2 spray intranasal DAILY citalopram 10 mg tablet 20 mg PO DAILY gabapentin 100 mg capsule 200 mg PO TID Qty: 180 2RF cyclobenzaprine 5 mg tablet 5 mg PO TID celecoxib 100 mg capsule 100 mg PO BID cholecalciferol (vitamin D3) 10 mcg (400 unit) capsule 10 mcg PO DAILY metformin 500 mg tablet 500 mg PO DAILY tramadol 50 mg tablet 50 mg PO Q6H PRN (Reason: pain) Qty: 20 0RF tacrolimus 0.1 % ointment 1 appl topical DIRECTED venlafaxine 150 mg capsule,extended release 24hr 150 mg PO QAM clindamycin phosphate 1 % solution 1 appl topical DAILY dicyclomine 20 mg tablet 20 mg PO .COMPLEX Rx Instructions: 20 mg orally before breakfast, lunch, and dinner; hydrocortisone 2.5 % ointment 1 appl topical BID omeprazole 20 mg capsule,delayed release(DR/EC) 20 mg PO BID Print Language: Khmer
--- NOTE | 2025-02-08 12:27 | ECG_ITS ---
Test Reason : CHEST PAIN Blood Pressure : */* mmHG Vent. Rate : 54 BPM Atrial Rate : 54 BPM P-R Int : 134 ms QRS Dur : 78 ms QT Int : 398 ms P-R-T Axes : 56 32 43 degrees QTcB Int : 377 ms Sinus bradycardia Otherwise normal ECG When compared with ECG of 19-Jan-2025 13:52, No significant change was found Referred By: Collins Kelley Electronically Signed By: Ezra Andersen
[2025-02-08 12:46] LABS: Lipase 30 U/L (8-78)
[2025-02-08 12:50] LABS: HCG Quantitative < 2 mIU/mL; Troponin-I High Sensitivity < 2.7 ng/L (<3.5-17.0)
[2025-02-08] MEDS: Acetaminophen 1,000 MG/100 ML PIGGYBACK 400 MG IV (12:57)
[2025-02-08] MEDS: iohexoL 350 MG/ML 100 ML INFUS..BTL IV (13:12)
--- OUTSIDE RECORDS SUMMARY | 2025-02-08 13:52 | XMS_ITS | Clinical Summary ---
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 is included. Color Urine Yellow [facility] Appearance Urine Clear [facility] PH 6.5 5.0 - 9.0 [facility] Glucose Urine UA Negative Negative mg/dL [facility] Urine Blood Moderate (2+)(A) Negative [facility] Specific [place] - Urine 1.015 1.005 - 1.025 [facility] Urine Protein Negative Neg-Trace mg/dL [facility] Urine Ketones Negative Negative mg/dL [facility] Nitrite Urine Negative Negative [facility] Leukocyte Esterase Urine Trace(A) Negative [facility] RBC Urine 11-20(A) 0 - 2 /HPF [facility] Urine WBC 0-5 0 - 5 /HPF [facility] Urine Squamous Epithelial Cell 0-2 0 - 2 /HPF [facility] Urine Bacteria None Seen None Seen [facility] Hyaline Casts, Urine 0-2 0 - 2 /LPF [facility] 01/19/2025 4:38 PM EDT 01/19/2025 4:47 PM EDT Narrative [facility] - 01/19/2025 4:57 PM EDT [id number], Clean Catch us Generic External Data Provider LAB URINE ORDERAB LES Final Result [facility] [address] [facility] [place] [phone] * CT Abdomen Pelvis w/o Contrast (01/19/2025 2:13 PM EDT) Anatomical Region Laterality Modality Body, Pelvis, Abdomen Computed T omography 01/19/2025 2:13 PM EDT Narrative 01/19/2025 2:48 PM EDT ? [facility] ?[address] ?[place] [address] ? CT Scan Report ? Signed ? Patient: Julia Smith ?MR#: ?? [id number] ? : 1975 ?Acct:[id number] ? Age/Sex: 49 / F ?ADM Date: 01/19/25 ? Loc: HO.ED ? Attending Dr: ? Ordering Physician: Kriss Askew ?? Date of Service: 01/19/25 ?? Procedure(s): CT abdomen pelvis wo IV con ?? Accession Number(s): [id number] ? cc: Gerry Lopez MD; Kriss Askew ? Report Number: ?? [id number]: Total DLP = ??734.00 mGy-cm ?? EXAMINATION: [...] signed by Edwin Ronquillo MD in OV> ?01/19/ 1445 ? DD/ 1413 ? TD/TT: 01/19/25 1420 ? Clinical Statistical Programmer: ? Procedure Note Donotuseinterpreter, Image - 01/19/[address] [address] [address] Scan Report Signed Patient: Julia SmithMR#: [id number] : 1975Acct:[id number] Age/Sex: 49 / FADM Date: 01/19/25 Loc: HO.ED Attending Dr: Ordering Physician: Kriss Askew Date of Service: 01/19/25 Procedure(s): CT abdomen pelvis wo IV con Accession Number(s): [id number] cc: Gerry Lopez MD; Kriss Askew Report Number: [id number]: Total DLP = 734.00 mGy-cm EXAMINATION: CT [...] 01/19/25 1445 DD/ 1413 TD/TT: 01/19/25 1420 Clinical Statistical Programmer: [facility] External Provider IMG CT PROCEDURES Final Result * Magnesium (01/19/2025 12:10 PM EDT) Only the most recent of2 resultswithin the time period is included. Magnesium 2.0 1.6 - 2.6 mg/dL [facility] 01/19/2025 12:1 0 PM EDT 01/19/2025 12:13 PM EDT us Generic External Data Provider LAB BLOOD ORDERAB LES Final Result [facility] [address] [place] [address] [phone] * (ABNORMAL) Basic Metabolic Panel (01/19/2025 12:10 PM EDT) Only the most recent of2 resultswithin the time period is included. Sodium 140 135 - 145 mmol/L [facility] Potassium 3.6 3.3 - 5.1 mmol/L [facility] Chloride 106 96 - 108 mmol/L [facility] Carbon Dioxide 26 22 - 29 mmol/L [facility] Anion Gap 12 - [facility] Urea Nitrogen (BUN) 18(H) 9 - 16 mg/dL [facility] Creatinine, Serum 0.85 0.5 - 1.4 mg/dL [facility] Creatinine Clr Calc Pharmacy 91.1 [facility] Comment:Provided height and weight: 165.1 cm,92.9 kg.eGFR (calculated from the MDRD study equation) and eCrCl(calculated from the Cockcroft-Gault equation) are based ondifferent parameters and may not yield comparable results.If eCrCl result is absurd, please check patient'sheight/weight. Estimated Glomerular Filt Rate >60 [facility] Comment:Chronic Kidney Disea se: Estimated GFR < 60 mL/min/1.38e4Lhlzhx Kidney Disease: Estimated GFR < 15 mL/min/1.73m2 Glucose 177(H) 60 - 115 mg/dL [facility] Calcium 9.5 8.4 - 10.2 mg/dL [facility] 01/19/2025 12:1 0 PM EDT 01/19/2025 12:13 PM EDT us Generic External Data Provider LAB BLOOD ORDERAB LES Final Result Performing Organization Address [facility] Co de Phone Number [facility] [address] [place] [phone] * TSH with Reflex to Free T4 (01/19/2025 10:23 AM EDT) Only the most recent of2 resultswithin the time period is included. TSH reflex Free T4 3.67 0.32 - 4.0 uIU/mL [facility] Blood Venous blood specimen / Unknown 01/19/2025 10:23 AM EDT 01/19/2025 11:21 AM EDT Gerry Whitehead MD LAB BLOOD ORDERABLES Final Result Performing Organization Address [facility] Co de Phone Number [facility] [address] [place] [phone] * Albumin, Random Urine W/Creatinine (01/19/2025 10:23 AM EDT) [facility] Creatinine, Urine 258.90 mg/dL [facility] Microalbumin Urine 64.0 mg/L [facility] Microalbum Creatinine Ratio Ur 24.7 <30 ug/mg cr [facility] Comment:Albumin/Creatinine R atio Reference Ranges: Normal: < 30 ug/mg creatinine Microalbuminuria: 30 - 300 ug/mg creatinineClinical Albuminuria: > 300 ug/mg creatinine Urine (Urine, Random) 01/19/2025 10:23 AM EDT 01/19/2025 11:59 AM EDT Gerry Whitehead MD LAB URINE ORDERABLES Final Result Performing Organization Address City/[facility] Co de Phone Number [facility] [address] [place] [phone] * (ABNORMAL) POCT urinalysis dipstick manually resulted (01/17/2025 4:05 PM EDT) Color, UA Light Yellow Clarity, UA Clear Glucose, UA Negative Bilirubin, UA Negative Ketones, UA Negative Spec Grav, UA 1.025 Blood, UA Positive(A) Negative, None Detected pH, UA 6.5 Protein, UA Negative Urobilinogen, UA 0.2 Leukocytes, UA Negative Negative, Rare, Trace Nitrite, UA Negative Negative, None Detected Appearance, UA clear QC Media Lot # [id number] Lot# Expiration Date Urine 01/17/2025 4:05 PM EDT us Krystina Haji MD POINT OF CARE TEST ENTER/EDIT OR DERABLES Final Result * Culture, Urine, Routine (01/17/2025 3:58 PM EDT) Urine Urine specimen obtained by clean catch procedure / Unknown 01/17/2025 3:58 PM EDT 01/17/2025 6:33 PM EDT Comment:UACC Narrative [facility] - 01/19/2025 11:46 AM EDT Lactobacillus species Quant 10,000 to 50,000 cfu/mL Specimen Source: Urine clean catch us Krystina Haji MD LAB MICROBIOLOGY - GENERAL ORDER BERNA Edited Result - Final [facility] [address] [place] [phone] * D Dimer High Sensitivity (01/12/2025 3:45 PM EDT) D Dimer High Sensitivity 165 NG/ML [facility] Comment:D-DIMER HS REFERENCE RANGENote: Our assay [...] ORDERAB LES Final Result Performing Organization Address [facility] de Phone Number [facility] [address] [place] [phone] * SARS-CoV-2 RNA, Influenza A/B, and RSV RNA, Ql NAAT (01/12/2025 12:10 PM EDT) Influenza A PCR NEGATIVE Negative [facility] Influenza B PCR NEGATIVE Negative [facility] Resp Syncy Virus RNA Qual PCR NEGATIVE Negative [facility] SARS COV2 PCR NEGATIVE Negative [facility] Comment:All test results mus t [...] use by authorized laboratories.Testing performed on the [employer] GeneXpert utilizingreal-time RT-PCR.All SARS CoV2 and positive influenza A/B results arereported to [facility]. 01/12/2025 12:1 0 PM EDT 01/12/2025 12:18 PM EDT Generic External Data Provider LAB MICROBIOLOGY - GENERAL ORDERABLES Final Result Performing Organization Address [facility] Co de Phone Number [facility] [address] [place] [phone] * XR Chest 2 Views (01/12/2025 11:56 AM EDT) Anatomical Region Laterality Modality Chest Radiographic Angy ging 01/12/2025 11:5 6 AM EDT Narrative 01/12/2025 12:47 PM EDT ? [facility] ?[address] ?[place] [address] ?XRay Report ? Signed ? Patient: Bethany Bedoya,Julia ?MR#: ?? [id number] ? : 1975 ?Acct:[id number] ? Age/Sex: 49 / F ?ADM Date: 01/12/25 ? Loc: HO.ED ? Attending Dr: ? Ordering Physician: Kriss Askew ?? Date of Service: 01/12/25 ?? Procedure(s): XR chest 2V ?? Accession Number(s): [id number] ? cc: Aubrie Trinidad MD; Kriss Askew [...] DD/ 1156 ? TD/TT: 01/12/25 1239 ? Clinical Statistical Programmer: ? Procedure Note Cierra, Namrata - 01/12/[address] [address] XRay Report Signed Patient: Julia SmithMR#: [id number] : 1975Acct:[id number] Age/Sex: 49 / FADM Date: 01/12/25 Loc: HO.ED Attending Dr: Ordering Physician: Kriss Askew Date of Service: 01/12/25 Procedure(s): XR chest 2V Accession Number(s): [id number] cc: Aubrie Trinidad MD; Kriss Askew EXAMINATION: [...] 01/12/25 1245 DD/ 1156 TD/TT: 01/12/25 1239 Clinical Statistical Programmer: [facility] External Provider IMG XR PROCEDURES Edited [...] Media Lot # [id number] Lot# Expiration Date 394 Blood Capillary blood specimen / Unknown 01/10/2025 9:56 AM EDT Gerry Whitehead MD POINT OF CARE TEST EN TER/EDIT ORDERABLES Final Result * (ABNORMAL) Lipid Panel, Standard (08/18/2024 11:31 AM EDT) Triglycerides 107 <150 mg/dL [facility] Comment:Desirable Triglyceri de: less than 150 mg/dLBorderline High Triglyceride 150-199 mg/dLHigh Triglyceride: 200-499 mg/dLVery High Triglyceride: greater than or equal to 5OO mg/dL Cholesterol 208(H) <200 mg/dL [facility] Comment:Desirable Cholestero l: less than 200 mg/dLBorderline High Cholesterol: 200-239 mg/dLHigh Cholesterol: greater than 239 mg/dL LDL Cholesterol Calculated 115(H) <100 mg/dL [facility] Comment:Desirable LDL: less than 100 mg/dLNear Optimal/Above Optimal LDL: 110- 129 mg/dLBorderline High LDL: 130-159 mg/dLHigh LDL: 160-189 mg/dLVery High LDL: greater than or equal to 190 mg/dL HDL Cholesterol 72 >40 mg/dL [facility] Comment:Desirable HDL: great er than 40 mg/dL Note: This HDL assay may give artificially low results in patients with liver disease. Blood Venous blood specimen / Unknown 08/18/2024 11:31 AM EDT 08/18/2024 1:14 PM EDT us Gerry Whitehead MD LAB BLOOD ORDERABLES Final Result [facility] [address] [place] [phone] * BI Mammogram Screening Tomosynthesis Bilateral (06/09/2024 12:35 PM EDT) Anatomical Region Laterality Modality Breast Bilateral Mammography 06/09/2024 12:3 5 PM EDT Narrative 07/07/2024 11:45 AM EDT ? [facility] ? [address] ?[place] [address] ? Mammography Report ? Signed ? Patient: Bethany Bedoya,Julia ?MR#: ?? [id number] ? : 1975 ?Acct:[id number] ? Age/Sex: 49 / F ?ADM Date: 08/08/24 ? Loc: HO.MAMMO ? Attending Dr: Aubrie Trinidad MD ? Ordering Physician: Aubrie Trinidad MD ?Results: 1 ?? Negative ? Date of Service: 06/09/24 ?Follow Up: 1 Year From Orig ?? inal Mammogram ? Procedure(s): MM tomosynthesis screening BI ?? Accession Number(s): [id number] ? cc: Aubrie Trinidad MD ? EXAMINATION: [...] DD/ 1235 ? TD/TT: 06/09/24 1250 ? Clinical Statistical Programmer: ? Procedure Note Donotuseinterpreter, Image - [facility]/07/20[facility] [address] [place], [place] [address] Mammography Report Signed Patient: Julia SmithMR#: [id number] : 1975Acct:[id number] Age/Sex: 49 / FADM Date: 06/09/24 Loc: HO.MAMMO Attending Dr: Aubrie Trinidad MD Ordering Physician: Aubrie Trinidad MDResults: 1 Negative Date of Service: 06/09/24Follow Up: 1 Year From Orig ina Mammogram Procedure(s): MM tomosynthesis screening BI Accession Number(s): [id number] cc: Aubrie Trinidad MD EXAMINATION: MM SCREENING [...] 07/07/24 1142 DD/ 1235 TD/TT: 06/09/24 1250 Clinical Statistical Programmer: Aubrie Trinidad MD IMG BI PROCEDURES Edited Re sult - Final * Hm Colonoscopy (02/08/2024) Colonoscopy Normal Normal Historical Provider [facility] Final Result * (ABNORMAL) Cologuard?? colon cancer screening (12/18/2023 11:00 AM EST) Cologuard Result Positive( A) Negative 12/27/2023 11:00 AM EST [facility] (CLIA #:[id number]) Comment: POSITIVE TEST RESULT. A positive Cologuard [...] (Jesenia Perez al, N Engl J Med 2014;370(14):3027-9482.) Cologuard may produce a false negative or false positive result (no colorectal cancer or precancerous polyp present at colonoscopy follow up). A negative Cologuard test result does not guarantee the absence of CRC or advanced adenoma (pre-cancer). The current Cologuard screening interval is every 3 years. ([place] Cancer Society and U.S. Multi-Society Task Force). Cologuard performance data in a 10,000 patient pivotal study using colonoscopy as the reference method can be accessed at the following location: [email or web address] [email or web address]/results. Additional description of the Cologuard test process, warnings and precautions can be found at [email or web address] [email or web address] Delikatesser. Stool specimen (specimen) 12/18/2023 11:00 AM EST 12/19/2023 1:02 PM EST Gerry Whitehead MD LAB MOLECULAR DIAGNOS TICS ORDERABLES Final Result [facility] (CLIA #:[id number]) [place] [address], * THINPREP PAP (04/17/2021 10:22 AM EDT) Clinical Information: None given [employer] [facility] COMMENT SEE COMMENT [facility] [...] historic and ?? current clinical information. ?? Foxer : SEE COMMENT [facility] Comment: GSG, CT(ASCP) CT screening location: [address] ??[address] Interpretation/R esult: Negative for intraepithelial lesion or malignancy. [facility] LMP: 03/21/2021 [facility] Prev. BX: NONE [facility] Prev. PAP: NIL 03/2015 HPV - FO [facility] SOURCE: Cervix [facility] Statement Of Adequacy: SEE COMMENT [facility] Comment: Satisfactory for evaluation. Endocervical/transformation zone component present. 04/17/2021 10:2 2 AM EDT Wendie DONG LAB PATHOLOGY ORDERABLES Final Result Performing Organization Address [facility] Co de Phone Number [facility] [address] * HPV mRNA E6/E7 (04/17/2021 10:22 AM EDT) HPV nRNA E6/E7 Not Detected Not Detected [facility] Comment: Methodology: Senior Drupal Developer-Mediated Amplification This assay detects E6/E7 viral messenger RNA (mRNA) from 14 high-risk HPV types (16,18,31,33,35,39,45,51,52,56,58,59,66,68). ? The analytical performance characteristics of this assay have been determined by [employer]. The modifications have not been cleared or approved by the FDA. This assay has been validated pursuant to the CLIA regulations and is used for clinical purposes. ?? For additional information, please refer to http://education.Graze/faq/KUZ542h0 (This link if provided for information/ educational purposes only.) 04/17/2021 10:2 2 AM EDT Wendie DONG LAB BLOOD ORDERABLES Judy l Result Performing Organization Address [facility] Co de Phone Number [facility] [address] from Last 3 Months or Most Recently Relevant to Health Maintenance Insurance [facility] C3 Care Teams Job Training Supervisor Relationship Specialty Start Date End Date Gerry Echavarria MD [address] [place] [phone] PCP - General Internal Medicine 07/26/14 Theron New Refrigerating OilerDelivery Mgr 01/08/24 [facility] 09/28/24
--- OUTSIDE RECORDS SUMMARY | 2025-02-08 13:52 | XMS_ITS | Encounter Summary ---
Author Organization [employer] Address [address] [facility] [address] [place] [address] Care Team Providers Care Instrument Assembly Supervisor Name Role Phone Gerry Echavarria MD Primary Care Provide r Encounter Details Date Type Department Care Team ([facility] st Contact Info) Description 10/06/2024 Telephone [facility] MEDICINE [address] [place] [address] Gerry Echavarria MD [address] [place], [place] [phone] Social History Tobacco Use Types Packs/Day Years [...] Description 04/18/2025 11:15 AM EDT Office Visit [facility] MEDICINE [address] [place] [address] Gerry Echavarria MD [address] [place] [address] documented as of this encounter Goals Goal [...] documented as of this encounter Care Teams Instrument Assembly Supervisor Relationship Specialty Start Date End Date Gerry Echavarria MD [address] [place] [phone] PCP - General Internal Medicine 07/26/14 Theron New Program Director/Morning Show HostPastry Cook Apprentice 01/08/24 [facility] 09/28/24 documented as of this encounter
--- OUTSIDE RECORDS SUMMARY | 2025-02-08 13:52 | XMS_ITS | Clinical Summary ---
Author Organization [facility] Address 175 [place] [address] Phone Care Team Providers Care Wharf Attendant Name Role Phone Gerry Lopez MD Primary [...] PM EDT Office Visit Orthopedic Surgery - [address] [phone] Juan Frey DPM Synovitis and tenosynovitis of left ankle and foot (Primary Dx); Disorder of ligament of foot, left; Primary osteoarthritis of both feet 12/05/2024 1:15 PM EST Office Visit Orthopedic Surgery [place] [address] [phone] Juan Frey DPM Primary osteoarthritis of both [...] 03/20/2025 2:30 PM EDT Office Visit Orthopedic [facility] [address] [phone] Juan Frey DPM [address] [address] Health Maintenance Due Date Last Done Comments [...] age to complete this topic Meningococcal B Vaccine Aged Out No l onger eligible based on patient's age to complete [...] ARIANA Negative Negative 11/11/2024 10:51 AM EST [facility] Blood Venous blood specimen / Unknown Venipuncture / Unknown 11/10/2024 12:54 PM EST 11/10/2024 4:04 PM EST Albert Diaz MD LAB BLOOD ORDERABLES Final Re sult [facility] [address] [place] [address], [place] [phone] * DNA antibody, double-stranded (11/10/2024 12:54 PM EST) [facility] Anti-DNA Double Stranded Antibody Negative Negative LAB CHEMISTRY METHOD 11/13/2024 11:12 AM EST [facility] ds DNA Ab 20 <=200 I Unit/mL LAB CHEMISTRY METHOD 11/13/2024 11:12 AM EST [facility] Blood Venous blood specimen / Unknown Venipuncture / Unknown 11/10/2024 12:54 PM EST 11/10/2024 4:04 PM EST us Albert Diaz MD LAB BLOOD ORDERABLES Final Re sult Performing Organization Address City/[facility]/ZIP Co de Phone Number [facility] [address] [place] [address], [place] [phone] * (ABNORMAL) Vitamin D 25 hydroxy (11/10/2024 12:54 PM EST) [facility] Vit D, 25-Hydroxy 14.3(L) 30.0 - 80.0 ng/mL LAB CHEMISTRY METHOD 11/10/2024 6:17 PM EST [facility] Blood Venous blood specimen / Unknown Venipuncture / Unknown 11/10/2024 12:54 PM EST 11/10/2024 4:04 PM EST us Albert Diaz MD LAB BLOOD ORDERABLES Final Re sult [facility] [address] [place] [address], [place] [phone] * (ABNORMAL) Sedimentation rate (11/10/2024 12:54 PM EST) [facility] Sed Rate 34(H) 0 - 20 mm/hr LAB HEMETOLOGY METHOD 11/10/2024 4:32 PM EST [facility] Blood Venous blood specimen / Unknown Venipuncture / Unknown 11/10/2024 12:54 PM EST 11/10/2024 4:03 PM EST Albert Diaz MD LAB BLOOD ORDERABLES Final Re sult Performing Organization Address [facility] Co de Phone Number [facility] [address] [place] [address], [place] [phone] * C-reactive protein (11/10/2024 12:54 PM EST) [facility] C-Reactive Protein 0.48 <=0.50 mg/dL LAB CHEMISTRY METHOD 11/10/2024 6:10 PM EST [facility] Blood Venous blood specimen / Unknown Venipuncture / Unknown 11/10/2024 12:54 PM EST 11/10/2024 4:04 PM EST Albert Diaz MD LAB BLOOD ORDERABLES Final Re sult Performing Organization Address [facility] de Phone Number [facility] [address] [place] [address], [place] [phone] * Vitamin B1 (11/10/2024 12:54 PM EST) [facility] Vitamin B1 Whole Blood 58 38 - 122 ug/L 11/15/2024 9:[address] [facility] Comment: This test was developed and the performance characteristics determined by [facility]. It has not been cleared or approved by the FDA. The laboratory is regulated under CLIA as qualified to perform high-complexity testing. This test is used for patient testing purposes. It should not be regarded as investigational or for research. Test performed at [facility], [address] , [place], [place] [address] ? [phone] Katelynn Dotson MD, PhD - Diversional Therapist Blood Venous blood specimen / Unknown Venipuncture / Unknown 11/10/2024 12:54 PM EST 11/10/2024 4:04 PM EST Albert Diaz MD LAB BLOOD ORDERABLES Final Re sult [facility] [address] [place] [address] * Folate (11/10/2024 12:54 PM EST) [facility] Folate 9.5 2.8 - 17.0 ng/ml LAB CHEMISTRY METHOD 11/10/2024 6:33 PM EST [facility] Blood Venous blood specimen / Unknown Venipuncture / Unknown 11/10/2024 12:54 PM EST 11/10/2024 4:04 PM EST Albert Diaz MD LAB BLOOD ORDERABLES Final Re sult [facility] [address] [place] [address], [place] [phone] * Vitamin B12 (11/10/2024 12:54 PM EST) [facility] Vitamin B-12 401 250 - 900 pcg/mL LAB CHEMISTRY METHOD 11/10/2024 6:33 PM EST [facility] Blood Venous blood specimen / Unknown Venipuncture / Unknown 11/10/2024 12:54 PM EST 11/10/2024 4:04 PM EST Albert Diaz MD LAB BLOOD ORDERABLES Final Re sult [facility] [address] [place] [address], [place] [phone] * Annual BMP Blood Test (04/09/2024) [facility] Annual BMP Blood Test abstracted Historical Provider HEALTH MAINTENANCE Final Result * FIT-DNA (Cologuard) (12/18/2023) [facility] Colorectal Cancer Screening: FIT-DNA (Cologuard) no [...] Blood Venous blood specimen / Unknown Result [facility] Historical Provider LAB BLOOD ORDERABLES Judy l Result * Cervical Cancer Screening: HPV (04/17/2021) Cervical Cancer Screening: HPV no interpretation , abstracted [facility] Provider HEALTH MAINTENANCE Final Result from Last 3 Months or Most Recently Relevant to Health Maintenance Insurance MEDICAID - [place] Care Teams Wharf Attendant Relationship Specialty Start Date End Date Gerry Lopez MD [address] [place] [address] [place] [address] PCP - General 07/29/22
--- OUTSIDE RECORDS SUMMARY | 2025-02-08 13:52 | XMS_ITS | Encounter Summary ---
Author Organization [employer] Address 75 [facility] 7t [place] [address] Care Team Providers Care Director Audience Marketing Name Role Phone Gerry Echavarria MD Primary Care Provide r Reason for Visit * Reason Comments Med Refill Encounter Details Date Type Department Care Team ([facility] st Contact Info) Description 08/08/2023 Refill [facility] MED[facility]INE [address] [place], [place] [phone] Mala Williamson, ANP 230 [place] [address] Vertigo; Diarrhea, unspecified type; Irritable bowel syndrome, [...] 11:15 AM EDT Office Visit [facility] [address] [place], [place] [phone] Gerry Echavarria MD 230 [place], [place] [phone] documented as of this encounter Goals Goal [...] documented as of this encounter Care Teams Director Audience Marketing Relationship Specialty Start Date End Date Gerry Echavarria MD [address] [place] [address] PCP - General Internal Medicine 07/26/14 Theron New CustomizerCopier Operator 01/08/24 [facility] 09/28/24 documented as of this encounter
--- OUTSIDE RECORDS SUMMARY | 2025-02-08 13:53 | XMS_ITS | Encounter Summary ---
Author Organization [employer] Address 75 [facility] 7t [place] [address] Care Team Providers Care Lamp Decorator Name Role Phone Gerry Echavarria MD Primary Care Provide r Reason for Visit * Reason Comments Med Refill Encounter Details Date Type Department Care Team ([facility] st Contact Info) Description 08/25/2023 Refill [facility] 230 [place], [place] [phone] Wendie Sandoval, [facility] [address] [place] [address] Social History Tobacco Use Types Packs/Day Years [...] Description 04/18/2025 11:15 AM EDT Office [facility] [address] [place] [address] Gerry Echavarria MD [address] [place] [address] documented as of this encounter Goals Goal [...] documented as of this encounter Care Teams Lamp Decorator Relationship Specialty Start Date End Date Gerry Echavarria MD [address] [place] [address] PCP - General Internal Medicine 07/26/14 Theron New Circuit Breaker AssemblerConcrete Grinder Operator 01/08/24 [facility] 09/28/24 documented as of this encounter
--- OUTSIDE RECORDS SUMMARY | 2025-02-08 13:53 | XMS_ITS | Encounter Summary ---
Author Organization [facility] Address 75 [facility] 7t [place] [address] Care Team Providers Care Rectifying Operator Name Role Phone Gerry Echavarria MD Primary Care Provide r Reason for Visit * Reason Comments Med Refill Encounter Details Date Type Department Care Team ([facility] st Contact Info) Description 09/10/2023 Refill [facility] MED[facility]INE 230 [place], [place] [phone] Gerry Echavarria MD 230 [place], [place] [phone] Social History Tobacco Use Types Packs/Day Years [...] 11:15 AM EDT Office Visit [facility] [address] [place] [address] Gerry Echavarria MD [address] [place] [address] documented as of this encounter Goals Goal [...] documented as of this encounter Care Teams Rectifying Operator Relationship Specialty Start Date End Date Gerry Echavarria MD [address] [place] [address] PCP - General Internal Medicine 07/26/14 Theron New High School Academic CoachEmployee Communications Specialist 01/08/24 [facility] 09/28/24 documented as of this encounter
--- OUTSIDE RECORDS SUMMARY | 2025-02-08 13:53 | XMS_ITS ---
Author Organization [facility] Address [address] [facility] [address] [place] [phone] Care Team Providers Care Reshipping Clerk Name Role Phone Shantell Whitehead MD, Gerry [...] Active Encounters Encounter Location Date Provider Diagnosis [facility] [address] [place] [phone] 01/13/2024 Wesley Olivo Jr Plan Of Treatment [...] Provider Name:Wesley ferrer Jr, 04/10/2025 10:40:00 AM, [address] [place] [address], [address], [place], [address], Progress Notes * CHERELLE FLOREZDOB: 6 (48 yo F)Acc No.[id number]:01/13/2024 Patient:?CHERELLE FLOREZ :1975???Age:48 Y???Sex:Female Address:[address] [place] [address], [place] [address] * Refills? Start MiraLax (colon prep), 8.3 [...] true * Date:? Generated for Ada thompson/Tiff/Himanshuitting on:?02/08/2025 01:53 PM EDT
--- OUTSIDE RECORDS SUMMARY | 2025-02-08 13:53 | XMS_ITS | Encounter Summary ---
Author Organization [employer] Address 75 [facility] 7t [place] [address] Care Team Providers Care Silk Snapper Name Role Phone Gerry Echavarria MD Primary Care Provide r Reason for Visit * Reason Comments Med Refill Encounter Details Date Type Department Care Team ([facility] st Contact Info) Description 09/20/2023 Refill [facility] MEDICINE [address] [place], [place] [phone] Mala Williamson, ANP 230 [place] [address] Diarrhea, unspecified type; Irritable bowel syndrome, unspecified [...] Description 04/18/2025 11:15 AM EDT Office Visit [facility] MEDICINE 230 [place] [address] Gerry Echavarria MD 230 [place] [address] documented as of this encounter Goals Goal [...] documented as of this encounter Care Teams Silk Snapper Relationship Specialty Start Date End Date Gerry Echavarria MD [address] [place] [address] PCP - General Internal Medicine 07/26/14 Theron New Assembly Inspector HelperSystems Architecture Analyst 01/08/24 [facility] 09/28/24 documented as of this encounter
--- OUTSIDE RECORDS SUMMARY | 2025-02-08 13:53 | XMS_ITS | Encounter Summary ---
Author Organization [employer] Address [address] [facility] 7t [place] [address] Care Team Providers Care Life Consultant Name Role Phone Gerry Echavarria MD Primary Care Provide r Reason for Visit * Reason Onset Date Comments Order 09/18/2023 Encounter Details Date Type Department Care Team ([facility] st Contact Info) Description 09/18/2023 Telephone [facility] MEDICINE 230 [place], [place] [phone] Gerry Echavarria MD 230 [place] [address] Order Social History Tobacco Use Types Packs/Day [...] and video instructions. Please contact pt at [phone] Faroese Speaker TC placed with Vicampoer ID # [id number]. Pt answered the phone and hung up on regulatory consultant, called placed again and a message was left in Faroese for her to contact the [facility]. I do not see anything in the [...] and video instructions. Please contact pt at [phone] Faroese Speaker documented in this encounter Plan of Treatment Upcoming Encounters Date Type Department Care Team (Late st Contact Info) Description 04/18/2025 11:15 AM EDT Office Visit [facility] MEDICINE 230 [place] [address] Gerry Echavarria MD 230 [facility] [place] [address] documented as of this encounter Goals Goal [...] documented as of this encounter Care Teams Life Consultant Relationship Specialty Start Date End Date Gerry Echavarria MD 230 [place] [address] PCP - General Internal Medicine 07/26/14 Theron New PulmonologistSet Up Mechanic Coil Winding Machines 01/08/24 [facility] 09/28/24 documented as of this encounter
--- OUTSIDE RECORDS SUMMARY | 2025-02-08 13:53 | XMS_ITS | Encounter Summary ---
Author Organization [facility] Address 75 [facility] 7t [place] [address] Care Team Providers Care Crane Manager Name Role Phone Gerry Echavarria MD Primary Care Provide r Reason for Visit * Reason Onset Date Comments Nurse Triage 12/14/2023 Encounter Details Date Type Department Care Team ([facility] st Contact Info) Description 12/14/2023 Telephone [facility] MEDICINE 230 [place], [place] [phone] Gerry Echavarria MD 230 [place] [address] Nurse Triage Social History Tobacco Use Types [...] given number to free telehealth service via [facility] [phone]. Pt to call them to see if [...] cough,fever) (Exceptions: Already seen by doctor or [facility] FOR[facility]/PA and no new or worsening symptoms.) * [...] accepted this outcome Please contact pt @ [phone] Hungarian Pt advices feels her chest a little tight. Came out positive for COVID on 12/14/2023 documented in this encounter Plan of Treatment Upcoming Encounters Date Type Department Care Team (Late st Contact Info) Description 04/18/2025 11:15 AM EDT Office Visit [facility] MEDICINE [address] [place] [address] Gerry Echavarria MD 230 [place] [address] documented as of this encounter Goals Goal [...] documented as of this encounter Care Teams Crane Manager Relationship Specialty Start Date End Date Gerry Echavarria MD [address] [place] [address] PCP - General Internal Medicine 07/26/14 Theron New Case PickerFacility Environmental Technician 01/08/24 [facility] 09/28/24 documented as of this encounter
--- OUTSIDE RECORDS SUMMARY | 2025-02-08 13:53 | XMS_ITS | Encounter Summary ---
Author Organization [facility] [facility] Address [address] [place] [address] 7 [place] [address] Care Team Providers Care Branch Services Manager Name Role Phone Gerry Echavarria MD Primary Care Provide r Reason for Referral * Consultation (Routine) - Authorized Specialty Diagnoses / Procedures Referred By Contsanket t Referred To Contact Urology Diagnoses Nephrolithiasis Krystina Haji MD [address] [place] [address] Phone: tel: fax: [facility] Referral ID Status Reason Start Date Expiration Date Visits Requested Visits Authorized [id number] Authorized Specialty Services Required 01/24/2025 01/24/2026 6 6 Encounter Details Date Type Department Care Team (Late st Contact Info) Description 01/21/2025 Orders Only [facility] MEDICINE [address] [place] [phone] Krystina Haji MD 230 [place], [place] [phone] Nephrolithiasis (Primary Dx) Social History Tobacco Use [...] [facility] 230 [place] [address] Gerry Echavarria MD 230 [place] [address] Scheduled Referrals Name Type Priority Associated Diagnoses [...] documented as of this encounter Care Teams Branch Services Manager Relationship Specialty Start Date End Date Gerry Echavarria MD [address] [place] [address] PCP - General Internal Medicine 07/26/14 Theron New Claim ClinicianRotary Drier Operator 01/08/24 [facility] 09/28/24 documented as of this encounter
--- OUTSIDE RECORDS SUMMARY | 2025-02-08 13:53 | XMS_ITS ---
Author Organization [facility] Address [address] [place] [address] Care Team Providers Care Cryptologic Technician Name Role Phone Shantell Whitehead MD, Gerry Primary Care Provide r Itz Olivo Jr, Wesley Unavailable [phone] REASON FOR VISIT results of colonoscopy Medications [...] Problem Status W/U Status Risk Notes Problem [id number] H. pylori infection (A04.8) Active confirmed Encounters Encounter Location Date Provider Diagnosis [facility] [address] [place] [phone] 02/24/2024 Wesley Olivo Jr H. pylori infection [...] Name:Wesley ferrer Jr, 04/10/2025 10:40:00 AM, [address] [place] [address], [address], [place], [address], Progress Notes * CHERELLE FLOREZDOB: 6 (48 yo F)Acc No.[id number]:02/24/2024 Patient:?CHERELLE FLOREZ :1975???Age:48 Y???Sex:Female Address:[address] [place] [address] [place], [address] * Refills? Start Omeprazole Capsule Delayed Release, [...] true * Date:? Generated for Ada thompson/Tiff/eTransmitting on:?02/08/2025 01:52 PM EDT
--- OUTSIDE RECORDS SUMMARY | 2025-02-08 13:53 | XMS_ITS | Encounter Summary ---
Author Organization [employer] Address 75 [facility] 7t [place] [address] Care Team Providers Care Insurance Coder Name Role Phone Gerry Echavarria MD Primary Care Provide r Reason for Visit * Reason Comments Med Refill Encounter Details Date Type Department Care Team ([facility] st Contact Info) Description 09/22/2023 Refill [facility] MEDICINE 230 [place], [place] [phone] Tracey Leyva MD 230 [place], [place] [phone] Social History Tobacco Use Types Packs/Day Years [...] Description 04/18/2025 11:15 AM EDT Office Visit [facility] MEDICINE 230 [place] [address] Gerry Echavarria MD 230 [place] [address] documented as of this encounter Goals Goal [...] documented as of this encounter Care Teams Insurance Coder Relationship Specialty Start Date End Date Gerry Echavarria MD 230 [place] [address] PCP - General Internal Medicine 07/26/14 Theron New Occasional BabysitterDrilling Assistant 01/08/24 [facility] 09/28/24 documented as of this encounter
--- OUTSIDE RECORDS SUMMARY | 2025-02-08 13:53 | XMS_ITS | Encounter Summary ---
Author Organization [employer] Address 75 [facility] 7t [place] [address] Care Team Providers Care Airdox Fitter Name Role Phone Gerry Echavarria MD Primary Care Provide r Reason for Visit * Reason Comments Med Refill Encounter Details Date Type Department Care Team ([facility] st Contact Info) Description 08/18/2023 Refill [facility] MEDICINE 230 [place], [place] [phone] Wendie Sandoval, [facility] 230 [place] [address] Social History Tobacco Use Types Packs/Day Years [...] Description 04/18/2025 11:15 AM EDT Office Visit [facility] MEDICINE 230 [place] [address] Gerry Echavarria MD 230 [place] [address] documented as of this encounter Goals Goal [...] documented as of this encounter Care Teams Airdox Fitter Relationship Specialty Start Date End Date Gerry Echavarria MD 230 [place] [address] PCP - General Internal Medicine 07/26/14 Theron New Relief CaptainHot Box Operator 01/08/24 [facility] 09/28/24 documented as of this encounter
--- OUTSIDE RECORDS SUMMARY | 2025-02-08 13:53 | XMS_ITS | Encounter Summary ---
Author Organization [employer] Address 75 [facility] 7t [place] [address] Care Team Providers Care [address] Scientist Name Role Phone Gerry Echavarria MD Primary Care Provide r Reason for Visit * Reason Comments Med Refill Encounter Details Date Type Department Care Team ([facility] st Contact Info) Description 09/10/2023 Refill [facility] MEDICINE 230 [place], [place] [phone] Wendie Sandoval, [facility] 230 [place] [address] Social History Tobacco Use Types Packs/Day Years [...] Description 04/18/2025 11:15 AM EDT Office Visit [facility] 230 [place] [address] Gerry Echavarria MD 230 [place] [address] documented as of this encounter Goals Goal [...] documented as of this encounter Care Teams Rd Scientist Relationship Specialty Start Date End Date Gerry Echavarria MD 230 [place] [address] PCP - General Internal Medicine 07/26/14 Theron New Chief Design DrafterClient Development Manager 01/08/24 [facility] 09/28/24 documented as of this encounter
--- OUTSIDE RECORDS SUMMARY | 2025-02-08 13:53 | XMS_ITS | Encounter Summary ---
Author Organization [employer] Address [address] [facility] 7t [place] [address] Care Team Providers Care Suction Dredge Dumping Supervisor Name Role Phone Gerry Echavarria MD Primary Care Provide r Reason for Visit * Reason Onset Date Comments Med Refill 10/11/2024 Encounter Details Date Type Department Care Team ([facility] st Contact Info) Description 10/11/2024 Telephone [facility] MEDICINE 230 [place], [place] [phone] Gerry Echavarria MD 230 [place] [address] Med Refill Social History Tobacco Use Types [...] 10 MG tablet To be sent to: [facility]/pharmacy [address] [place] [address] ABDULAZIZ TALAVERA documented in this encounter Plan of Treatment Upcoming Encounters Date Type Department Care Team (Late st Contact Info) Description 04/18/2025 11:15 AM EDT Office Visit [facility]INE [address] [place] [address] Gerry Echavarria MD 230 [place] [address] documented as of this encounter Goals Goal [...] documented as of this encounter Care Teams Suction Dredge Dumping Supervisor Relationship Specialty Start Date End Date Gerry Echavarria MD [address] [place] [address] PCP - General Internal Medicine 07/26/14 Theron New Sanitation Truck CleanerExtrusion Press Supervisor 01/08/24 [facility] 09/28/24 documented as of this encounter
--- OUTSIDE RECORDS SUMMARY | 2025-02-08 13:53 | XMS_ITS | Encounter Summary ---
Author Organization [employer] Address [address] [facility] [address] 7t [place] [address] Care Team Providers Care Child And Family Services Worker Name Role Phone Gerry Echavarria MD Primary Care Provide r Reason for Visit * Reason Comments Med Refill Encounter Details Date Type Department Care Team ([facility] st Contact Info) Description 08/18/2023 Refill [facility] 230 [place] [address] [place], [place] COVID-19 Social History Tobacco [...] Description 04/18/2025 11:15 AM EDT Office Visit [facility] 230 [place], [place] [phone] Gerry Echavarria MD 230 [place] [address] documented as of this encounter Goals Goal [...] documented as of this encounter Care Teams Child And Family Services Worker Relationship Specialty Start Date End Date Gerry Echavarria MD 230 [place] [address] PCP - General Internal Medicine 07/26/14 Theron New Big Data Analytics LeadBook Cutter 01/08/24 [facility] 09/28/24 documented as of this encounter
--- OUTSIDE RECORDS SUMMARY | 2025-02-08 13:53 | XMS_ITS | Encounter Summary ---
Author Organization [employer] Address [address] [facility] 7t [place] [address] Care Team Providers Care Gang Vibrator Operator Name Role Phone Gerry Echavarria MD Primary Care Provide r Encounter Details Date Type Department Care Team (Late st Contact Info) Description 02/08/2025 Orders Only GENERIC EXTERNAL DATA [...] as of this encounter Miscellaneous Notes * Result Encounter Note - Aubrie Trinidad MD - 02/08/2025 10:53 AM EDT FYI. Labs sent to me by mistake. Patient was evaluated today in the emergency department. documented in this encounter Plan of Treatment Upcoming Encounters Date Type Department Care Team (Late st Contact Info) Description 04/18/2025 11:15 AM EDT Office Visit [facility] [address] [place], [place] [phone] Gerry Echavarria MD [address] [place] [address] documented as of this encounter Goals Goal [...] On track( 024 4:06 PM EDT) No Emmanuel, Jerril, PharmD Note: inactive, advised some amount of cardio can help with heart health documented as of this encounter Procedures Procedure Name Priority Date/Time Associated Diagnosis Comments CT ABDOMEN PELVIS W CONTRAST Routine 02/08/2025 1:17 PM EDT HIGH SENSITIVITY TROPONIN I Routine 02/08/2025 10:43 AM EDT CBC WITH AUTO DIFFERENTIAL Routine 02/08/2025 10:43 AM EDT URINALYSIS WITH REFLEX MICROSCOPIC Routine 02/08/2025 10:43 AM EDT HCG, TOTAL, QN Routine 02/08/2025 10:43 AM EDT LIPASE Routine 02/08/2025 10:43 AM EDT HEPATIC FUNCTION PANEL Routine 10:43 AM EDT COMPREHENSIVE METABOLIC PANEL Routine 02/08/2025 10:43 AM EDT documented in this encounter Results * CT Abdomen Pelvis w/ Contrast (02/08/2025 1:17 PM EDT) Anatomical Region Laterality Modality Body, Pelvis, Abdomen Computed T omography 02/08/2025 1:17 PM EDT Narrative 02/08/2025 1:49 PM EDT ? [facility] ?[address] ?[place] [address] ? CT Scan Report ? Signed ? Patient: Julia Smith ?MR#: ?? [id number] ? : 1975 ?Acct:[id number] ? Age/Sex: 49 / F ?ADM Date: 04/09/25 ? Loc: HO.ED ? Attending Dr: ? Ordering Physician: Collins Kelley DO ?? Date of Service: 02/08/25 ?? Procedure(s): CT abdomen pelvis w IV con ?? Accession Number(s): [id number] ? cc: Aubrie Trinidad MD; Collins Kelley DO ? Report Number: ?? [id number]: Total DLP = ??761.00 mGy-cm ?? EXAMINATION: [...] DD/ 1317 ? TD/TT: 02/08/25 1317 ? [employer]fd[employer] Solution Architect: ? Procedure Note Namrata Norton - 02/08/[address] [address] [address] Scan Report Signed Patient: Julia Smith#: [id number] : 1975Acct:[id number] Age/Sex: 49 / FADM Date: 02/08/25 Loc: HO.ED Attending Dr: Ordering Physician: Collins Kelley DO Date of Service: 02/08/25 Procedure(s): CT abdomen pelvis w IV con Accession Number(s): [id number] cc: Aubrie Trinidad MD; Collins Kelley DO Report Number: [id number]: Total DLP = 761.00 mGy-cm EXAMINATION: CT [...] 02/08/25 1346 DD/ 1317 TD/TT: 02/08/25 1317 Sfdc Solution Architect: [facility] External Provider IMG CT PROCEDURES Final Result * hCG, Total, Quantitative (02/08/2025 10:43 AM EDT) HCG Quantitative <2 mIU/mL [facility] Comment:Weeks post LMP Appro ximate hCG(Last Menstrual Period) Range (mIU/ml)3 - 4 weeks 9 - 1304 - 5 weeks 75 - 2,6005 - 6 weeks 850 - 20,8006 - 7 weeks 4000 - 100,2007 - 12 weeks 11,500 - 289,10769 - 16 weeks 18,300 - 137,34310 - 29 weeks (2nd trimester) 1,400 - 53,15411 - 41 weeks (3rd trimester) 940 - [...] Provider LAB BLOOD ORDERAB LES Final Result [facility] [address] [place] [phone] * Lipase (02/08/2025 10:43 AM EDT) Lipase 30 8 - 78 U/L [facility] 02/08/2025 10:4 3 AM EDT 02/08/2025 10:46 AM EDT us Generic External Data Provider LAB BLOOD ORDERAB LES Final Result Performing Organization Address [facility]/ZIP Co de Phone Number [facility] [address] [place] [phone] * High Sensitivity Troponin I (02/08/2025 10:43 AM EDT) TROPONIN I HIGH SENSITIVITY <2.7 <3.5 - 17.0 ng/L [facility] Comment:The [place] high sens itivity Troponin-I results should beused in conjunction with other diagnostic information suchas ECG, clinical observations and information, and patientsymptoms to aid in the diagnosis of [place]. 02/08/2025 10:4 3 AM EDT 02/08/2025 12:30 PM EDT us Generic External Data Provider LAB BLOOD ORDERAB LES Final Result Performing Organization Address [facility] de Phone Number [facility] [address] [place] [phone] * Hepatic Function Panel (02/08/2025 10:43 AM EDT) Bilirubin, Direct 0.2 0.0 - 0.5 mg/dL [facility] 02/08/2025 10:4 3 AM EDT 02/08/2025 10:46 AM EDT us Generic External Data Provider LAB BLOOD ORDERAB LES Final Result Performing Organization Address [facility] Co de Phone Number [facility] [address] [place] [phone] * (ABNORMAL) Comprehensive Metabolic Panel (02/08/2025 10:43 AM EDT) Sodium 137 135 - 145 mmol/L [facility] Potassium 3.9 3.3 - 5.1 mmol/L [facility] Chloride 104 96 - 108 mmol/L [facility] Carbon Dioxide 26 22 - 29 mmol/L [facility] Anion Gap 11(L) 12 - 20 [facility] Urea Nitrogen (BUN) 19(H) 9 - 16 mg/dL [facility] Creatinine, Serum 0.90 0.5 - 1.4 mg/dL [facility] Creatinine Clr Calc Pharmacy 85.3 [facility] Comment:Provided height and weight: 165.1 cm,91.4 kg.eGFR (calculated from the MDRD study equation) and eCrCl(calculated from the Cockcroft-Gault equation) are based ondifferent parameters and may not yield comparable results.If eCrCl result is absurd, please check patient'sheight/weight. Estimated Glomerular Filt Rate >60 [facility] Comment:Chronic Kidney Disea se: Estimated GFR < 60 mL/min/1.88r0Yunyqm Kidney Disease: Estimated GFR < 15 mL/min/1.73m2 Glucose 173(H) 60 - 115 mg/dL [facility] Calcium 10.1 8.4 - 10.2 mg/dL [facility] Bilirubin, Total 0.4 0.0 - 1.0 mg/dL [facility] Aspartate Amino Transferase 19 5 - 31 U/L [facility] Alanine Aminotransferase 19 0 - 31 U/L [facility] Total Protein 6.9 6.5 - 8.0 g/dL [facility] Albumin Level 3.9 3.5 - 5.0 g/dL [facility] Alkaline Phosphatase 83 39 - 117 U/L [facility] 02/08/2025 10:4 3 AM EDT 02/08/2025 10:46 AM EDT us Generic External Data Provider LAB BLOOD ORDERAB LES Final Result [facility] [address] [place] [phone] * (ABNORMAL) CBC auto differential (02/08/2025 10:43 AM EDT) White Blood Count 7.8 4.8 - 10.8 X10*3/uL [facility] Red Blood Count 4.24 4.20 - 5.50 X10*6/uL [facility] Hemoglobin 12.3 12.0 - 16.0 g/dl [facility] Hematocrit 37.7 37.0 - 47.0 % [facility] Mean Corpuscular Volume 88.9 80.0 - 98.0 fL [facility] Mean Corpuscular Hemoglobin 29.0 27.0 - 33.0 pg [facility] Mean Corpuscular HGB Conc 32.6 31.0 - 35.0 g/dl [facility] Red Cell Distribution Width 13.5 11.0 - 16.0 % [facility] Platelet Count 278 160 - 400 X10*3/uL [facility] Mean Platelet Volume 10.1 9.4 - 12.3 fL [facility] Neutrophils Percent Auto 64.7 45 - 73 % [facility] Imm Gran Pct Auto 0.5(H) 0.0 - 0.4 % [facility] Lymphocytes Percent Auto 25.6 20 - 40 % [facility] Monocytes Percent Auto 7.5 2 - 11 % [facility] Eosinophils Percent Auto 1.3 0 - 4 % [facility] Basophils Percent Auto 0.4 0 - 2 % [facility] NRBC Pct Auto 0.0 0.0 - 0.2 /100WBC [facility] Neutrophils Absolute Auto 5.0 2.0 - 8.3 x10*3/uL [facility] Imm Gran Abs Auto 0.04(H) 0.00 - 0.03 X10*3/uL [facility] Lymphocytes Absolute Auto 2.0 1.2 - 4.9 X10*3/uL [facility] Monocytes Absolute Auto 0.6 0.1 - 1.2 X10*3/uL [facility] Eosinophils Absolute Auto 0.1 0.0 - 0.4 X10*3/uL [facility] Basophils Absolute Auto 0.0 0.0 - 0.2 X10*3/uL [facility] NRBC Abs Auto 0.000 0.0 - 0.012 X10*3/uL [facility] 02/08/2025 10:4 3 AM EDT 02/08/2025 10:46 AM EDT us Generic External Data Provider LAB BLOOD ORDERAB LES Final Result Performing Organization Address [facility] de Phone Number [facility] [address] [place] [phone] * (ABNORMAL) Urinalysis w/reflex microscopic (02/08/2025 10:43 AM EDT) Color Urine Dark Yellow [facility] Appearance Urine Clear [facility] PH 5.0 5.0 - 9.0 [facility] Glucose Urine UA 500(A) Negative mg/dL [facility] Urine Blood Negative Negative [facility] Specific [place] - Urine >=1.030(H) 1.005 - 1.025 [facility] Urine Protein Negative Neg-Trace mg/dL [facility] Urine Ketones Trace Negative mg/dL [facility] Nitrite Urine Negative Negative [facility] Leukocyte Esterase Urine Negative Negative [facility] 02/08/2025 10:4 3 AM EDT 02/08/2025 10:46 AM EDT Narrative [facility] - 02/08/2025 10:52 AM EDT [id number], Clean Catch us Generic External Data Provider LAB URINE ORDERAB LES Final Result Performing Organization Address [facility] de Phone Number [facility] [address] [place] [phone] documented in this encounter Visit Diagnoses Not on filedocumented in this encounter Additional Health Concerns Assessment Noted Time PHQ-9 Depression Total Score: 11 11/01/ 024 11:14 AM EST documented as of this encounter Care Teams Gang Vibrator Operator Relationship Specialty Start Date End Date Gerry Echavarria MD [address] [place] [address] PCP - General Internal Medicine 07/26/14 Theron New Table MakerRetoucher 01/08/24 [facility] 09/28/24 documented as of this encounter
--- OUTSIDE RECORDS SUMMARY | 2025-02-08 13:53 | XMS_ITS | Encounter Summary ---
Author Organization [employer] Address [address] [facility] 7t [place] [address] Care Team Providers Care Postdoctoral Scientist Name Role Phone Gerry Echavarria MD Primary Care Provide r Reason for Visit * Reason Comments Med Refill Encounter Details Date Type Department Care Team ([facility] st Contact Info) Description 08/18/2023 Refill [facility] [address] [place], [place] [phone] Krystina Haji MD [address] [place], [place] [phone] Mixed anxiety and depressive disorder; Chronic migraine [...] 11:15 AM EDT Office Visit [facility] [address] [place] [address] Gerry Echavarria MD [address] [place] [address] documented as of this encounter Goals Goal [...] documented as of this encounter Care Teams Postdoctoral Scientist Relationship Specialty Start Date End Date Gerry Echavarria MD [address] [place] [address] PCP - General Internal Medicine 07/26/14 Theron New Payroll Accounting SpecialistTelecommunications Sales Representative 01/08/24 [facility] 09/28/24 documented as of this encounter
--- OUTSIDE RECORDS SUMMARY | 2025-02-08 13:53 | XMS_ITS | Encounter Summary ---
Author Organization [employer] Address [address] [place] [address] 7 [place] [address] Care Team Providers Care Development Consultant Name Role Phone Gerry Echavarria MD Primary Care Provide r Reason for Visit * Reason Onset Date Comments Med Refill 11/23/2024 Encounter Details Date Type Department Care Team ([facility] st Contact Info) Description 11/23/2024 Telephone [facility] [address] [place], [place] [phone] Gerry Echavarria MD [address] [place] [address] Med Refill Social History Tobacco Use Types [...] FreeStyle lancets To be sent to: [facility]/pharmacy #[id number] documented in this encounter Plan of Treatment Upcoming Encounters Date Type Department Care Team (Late st Contact Info) Description 04/18/2025 11:15 AM EDT Office Visit [facility] [address] [place] [address] Gerry Echavarria MD [address] [place] [address] documented as of this encounter Goals Goal [...] documented as of this encounter Care Teams Development Consultant Relationship Specialty Start Date End Date Gerry Echavarria MD [address] [place] [phone] PCP - General Internal Medicine 07/26/14 Theron New Pit BossPreservationist 01/08/24 [facility] 09/28/24 documented as of this encounter
--- OUTSIDE RECORDS SUMMARY | 2025-02-08 13:53 | XMS_ITS | Encounter Summary ---
Author Organization [employer] Address [address] [facility] 7t [place] [address] Care Team Providers Care Assembler Caterpillar Spider Name Role Phone Gerry Echavarria MD Primary Care Provide r Reason for Visit * Reason Comments Med Refill Encounter Details Date Type Department Care Team ([facility] st Contact Info) Description 09/22/2023 Refill [facility] [address] [place], [place] [phone] Mala Williamson, ANP [address] [place] [address] Diarrhea, unspecified type; Irritable bowel syndrome, unspecified [...] [facility] [address] [place] [address] Gerry Echavarria MD [address] [place] [address] documented as of this encounter Goals Goal [...] documented as of this encounter Care Teams Assembler Caterpillar Spider Relationship Specialty Start Date End Date Gerry Echavarria MD [address] [place] [phone] PCP - General Internal Medicine 07/26/14 Theron New Director PeoplesoftLaborer Brush Clearing 01/08/24 [facility] 09/28/24 documented as of this encounter
--- OUTSIDE RECORDS SUMMARY | 2025-02-08 13:53 | XMS_ITS | Encounter Summary ---
Author Organization [employer] [facility] Address [address] [place] [address] 7 [place] [address] Care Team Providers Care Ore Roaster Name Role Phone Gerry Echavarria MD Primary Care Provide r Reason for Visit * Reason Onset Date Comments triage 12/26/2022 Encounter Details Date Type Department Care Team ([facility] st Contact Info) Description 12/26/2022 Telephone [facility] MEDICINE [address] [place], [place] [phone] Gerry Echavarria MD [address] [place] [address] triage Social History Tobacco Use Types Packs/Day [...] accepted this outcome Please contact pt at [phone] documented in this encounter Plan of Treatment Upcoming Encounters Date Type Department Care Team (Late st Contact Info) Description 04/18/2025 11:15 AM EDT Office Visit [facility] [address] [facility] [place] [address] Gerry Echavarria MD [address] [facility] [place] [facility] [place] [address] documented as of this encounter Goals Goal [...] on filedocumented in this encounter Care Teams Ore Roaster Relationship Specialty Start Date End Date Gerry Echavarria MD [address] [facility] [place] [address] PCP - General Internal Medicine 07/26/14 Theron New Vegetable TrimmerFreight Delivery Driver 01/08/24 [facility] 09/28/24 documented as of this encounter
--- OUTSIDE RECORDS SUMMARY | 2025-02-08 13:53 | XMS_ITS | Encounter Summary ---
Author Organization [employer] [facility] Address [address] [place] [address] 7 [place] [address] Care Team Providers Care Fleet Driver Name Role Phone Gerry Echavarria MD Primary Care Provide r Reason for Visit * Reason Onset Date Comments Med Refill 12/30/2022 Encounter Details Date Type Department Care Team ([facility] st Contact Info) Description 12/30/2022 Telephone [facility] MED[facility]INE [address] [place], [place] [phone] Gerry Echavarria MD [address] [place] [address] Med Refill Social History Tobacco Use Types [...] of being on meclizine in Epic or PhotoSynesi * Telephone Encounter - Evelio Guevara - 12/30/2022 1:02 PM EST Tc from pt requesting a Script for Meclazine that helps pt with her ongoing lightheadedness. Please contact pt at [phone] documented in this encounter Plan of Treatment Upcoming Encounters Date Type Department Care Team (Late st Contact Info) Description 04/18/2025 11:15 AM EDT Office Visit [facility] [address] [place] [address] Gerry Echavarria MD [address] [place] [address] documented as of this encounter [...] giddiness documented in this encounter Care Teams Fleet Driver Relationship Specialty Start Date End Date Gerry Echavarria MD [address] [place] [address] PCP - General Internal Medicine 07/26/14 Theron New Ethanol Quality LeaderClean Up Person 01/08/24 [facility] 09/28/24 documented as of this encounter
--- OUTSIDE RECORDS SUMMARY | 2025-02-08 13:53 | XMS_ITS | Encounter Summary ---
Author Organization [employer] Address 75 [facility] 7t [place] [address] Care Team Providers Care Passenger Screener Name Role Phone Gerry Echavarria MD Primary Care Provide r Reason for Visit * Reason Comments Med Refill Encounter Details Date Type Department Care Team (Late st Contact Info) Description 11/13/2023 Refill [facility] MED[facility] [address] [place], [place] [phone] Krystina Haji MD [address] [place], [place] [phone] Chronic migraine without aura without status migrainosus, [...] 04/18/2025 11:15 AM EDT Office Visit [facility] [address] [place], [place] [phone] Gerry Echavarria MD [address] [place], [place] [phone] documented as of this encounter Goals Goal [...] documented as of this encounter Care Teams Passenger Screener Relationship Specialty Start Date End Date Gerry Echavarria MD [address] [place] [phone] PCP - General Internal Medicine 07/26/14 Theron New Call Center RnCommercial Sales Specialist 01/08/24 [facility] 09/28/24 documented as of this encounter
--- OUTSIDE RECORDS SUMMARY | 2025-02-08 13:53 | XMS_ITS | Encounter Summary ---
Author Organization [employer] Address [address] [facility] 7t [place] [address] Care Team Providers Care University Counselor Name Role Phone Gerry Echavarria MD Primary Care Provide r Reason for Visit * Reason Comments Med Refill Encounter Details Date Type Department Care Team ([facility] st Contact Info) Description 09/20/2023 Refill [facility] [address] [place], [place] [phone] Amalia Ta MD [address] [place] [address] Social History Tobacco Use Types Packs/Day Years [...] 04/18/2025 11:15 AM EDT Office Visit [facility] MEDICINE [address] [place] [address] Gerry Echavarria MD [address] [place] [address] documented as of this encounter Goals Goal [...] documented as of this encounter Care Teams University Counselor Relationship Specialty Start Date End Date Gerry Echavarria MD [address] [place] [address] PCP - General Internal Medicine 07/26/14 Theron New Vocational Training TeacherVessel Captain 01/08/24 [facility] 09/28/24 documented as of this encounter
--- OUTSIDE RECORDS SUMMARY | 2025-02-08 13:53 | XMS_ITS | Encounter Summary ---
Author Organization [employer] Address [address] [facility] 7t [place] [address] Care Team Providers Care Printed Circuit Boards Stripper Etcher Name Role Phone Gerry Echavarria MD Primary Care Provide r Reason for Visit * Reason Comments Med Refill Encounter Details Date Type Department Care Team ([facility] st Contact Info) Description 08/08/2023 Refill [facility] MEDICINE [address] [place] [address] Name, MD Wai [address] [place] [address] Mixed anxiety and depressive disorder Social History [...] your housing situation today? I have bird chávze 08/08/[address] you li [...] Description 04/18/2025 11:15 AM EDT Office Visit [facility] MED[facility]INE [address] [place] [address] Gerry Echavarria MD [address] [place] [address] documented as of this encounter Goals Goal [...] documented as of this encounter Care Teams Printed Circuit Boards Stripper Etcher Relationship Specialty Start Date End Date Gerry Echavarria MD [address] [place] [address] PCP - General Internal Medicine 07/26/14 Theron New Harness InstallerEquipment Scheduler 01/08/24 [facility] 09/28/24 documented as of this encounter
--- OUTSIDE RECORDS SUMMARY | 2025-02-08 13:53 | XMS_ITS | Encounter Summary ---
Author Organization [employer] Address [address] [facility] 7t [place] [address] Care Team Providers Care Needle Control Cheniller Name Role Phone Gerry Echavarria MD Primary Care Provide r Reason for Visit * Reason Comments Med Refill Encounter Details Date Type Department Care Team ([facility] st Contact Info) Description 09/20/2023 Refill [facility] MEDICINE 230 [place], [place] [phone] Tracey Leyva MD [address] [place], [place] [phone] Social History Tobacco Use Types Packs/Day Years [...] 11:15 AM EDT Office Visit [facility] MEDICINE [address] [place] [address] Gerry Echavarria MD [address] [place] [address] documented as of this encounter Goals Goal [...] documented as of this encounter Care Teams Needle Control Cheniller Relationship Specialty Start Date End Date Gerry Echavarria MD [address] [place] [address] PCP - General Internal Medicine 07/26/14 Theron New Senior Adults DirectorPublic Information Officer 01/08/24 [facility] 09/28/24 documented as of this encounter
--- OUTSIDE RECORDS SUMMARY | 2025-02-08 13:53 | XMS_ITS | Encounter Summary ---
Author Organization [employer] Address 75 [facility] 7t [place] [address] Care Team Providers Care Forestry Fire Aid Name Role Phone Gerry Echavarria MD Primary Care Provide r Reason for Visit * Reason Comments Med Refill Encounter Details Date Type Department Care Team ([facility] st Contact Info) Description 09/20/2023 Refill [facility] [address] [place], [place] [phone] [facility] [address] [place] [address] Folliculitis Social History Tobacco Use Types Packs/Day [...] Office Visit [facility] MEDICINE [address] [place] [address] Gerry Echavarria MD [address] [place] [address] documented as of this encounter Goals Goal [...] documented as of this encounter Care Teams Forestry Fire Aid Relationship Specialty Start Date End Date Gerry Echavarria MD [address] [place] [address] PCP - General Internal Medicine 07/26/14 Theron New Dog TrainerReal Estate Transaction Manager 01/08/24 [facility] 09/28/24 documented as of this encounter
--- OUTSIDE RECORDS SUMMARY | 2025-02-08 13:54 | XMS_ITS | Encounter Summary ---
Author Organization [employer] [facility] Address [address] [place] [address] 7 [place] [address] Care Team Providers Care Stretch Press Operator Name Role Phone Gerry Echavarria MD Primary Care Provide r Reason for Visit * Reason Comments Med Refill Encounter Details Date Type Department Care Team ([facility] st Contact Info) Description 04/04/2023 Refill [facility] 230 [place], [place] [phone] Mala Williamson, ANP 230 [place] [address] Diarrhea, unspecified type; Irritable bowel syndrome, unspecified [...] Description 04/18/2025 11:15 AM EDT Office Visit [facility] [address] [facility] [place] [address] Gerry Echavarria MD 230 [place] [address] documented as of this encounter Goals Goal [...] documented as of this encounter Care Teams Stretch Press Operator Relationship Specialty Start Date End Date Gerry Echavarria MD [address] [facility] [place] [address] PCP - General Internal Medicine 07/26/14 Theron New Grounding EngineerGraduating Machine Operator 01/08/24 [facility] Care 09/28/24 documented as of this encounter
--- OUTSIDE RECORDS SUMMARY | 2025-02-08 13:54 | XMS_ITS ---
Author Organization [facility] Address [address] [facility] [address] [place] [address] Care Team Providers Care Seed Technician Name Role Phone Shantell Whitehead MD, Gerry Primary Care Provide r Itz Olivo Jr, Wesley Unavailable REASON FOR VISIT gerd,abn findings in stool Problems Problem Type SNOMED Code ICD Code Onset Dates Problem Status W/U Status Risk Notes Problem Gastroesophageal reflux disease (809001827) Chronic GERD (K21.9) Active confirmed Encounters Encounter Location Date Provider Diagnosis [facility] [address] [place] [phone] 02/12/2024 Wesley Olivo Jr Abnormal findings in [...] Name:Wesley ferrer Jr, 04/10/2025 10:40:00 AM, [address], [address], [place], [address], Progress Notes * FLOREZCHERELLE BEANDOB: 6 (49 yo F)Acc No.[id number]:02/12/2024 EGD and COL/MAC Patient:?LEISA FLOREZARIS Provider:?Wesley Olivo MD :1975???Age:48 Y???Sex:Female D ate:02/12/2024 Address: [place], [place] Pcp:Gerry flores MD Subjective: * Chief Complaints: * ???1. Gerd,abn findings in s tool. * Medical History:? Objective: * Vitals:? Assessment: * Assessment: 1.?Abnormal findings in stoo l - R19.5 (Primary)???2.?Colon polyps - K63.5???3.?Chronic GERD - K21.9??? Plan: * Treatment: * Procedure Codes:?19324 LESIO N REMOVAL COLONOSCOPY, 63570 UPPER GI ENDOSCOPY, BIOPSY * * The named appointment provid er may or may not be the originator of this progress note, and it is not deemed complete until electronically signed by the appointment provider. Sign off status: Pending * Provider:?Wesley Olivo MD Date:?0 02/12/2024 Generated for Ada thompson/Tiff/eTransmitting on:?02/08/2025 01:53 PM EDT
--- OUTSIDE RECORDS SUMMARY | 2025-02-08 13:54 | XMS_ITS | Encounter Summary ---
Author Organization [employer] [facility] Address [address] [place] [address] 7t [place] [address] Care Team Providers Care Disk Sharpener Name Role Phone Gerry Echavarria MD Primary Care Provide r Encounter Details Date Type Department Care Team (Late Contact Info) Description 04/13/2023 Abstract [facility] 230 [place], [place] [phone] Gerry Echavarria MD 230 [place] [address] Social History Tobacco Use Types Packs/Day Years [...] Description 04/18/2025 11:15 AM EDT Office Visit [facility] [address] [facility] [place] [address] Gerry Echavarria MD [address] [facility] [place] [address] documented as of this encounter Goals Goal [...] documented as of this encounter Care Teams Disk Sharpener Relationship Specialty Start Date End Date Gerry Echavarria MD [address] [facility] [place] [address] PCP - General Internal Medicine 07/26/14 Theron New Brick TesterLard Bleacher 01/08/24 [facility] Care 09/28/24 documented as of this encounter
--- OUTSIDE RECORDS SUMMARY | 2025-02-08 13:54 | XMS_ITS | Patient Health Record ---
Author Organization [facility] Address [address] [place] [address] Care Team Providers Care Grain Sacker Name Role Phone Shantell Whitehead MD, Gerry Primary Care Provide Wesley Montalvo Jr Unavailable [phone] Allergies Allergen (clinical drug ingredient) Drug/Non Drug Allergy documented on EMR Reaction Allergy Type Onset Date Status shrimp allergenic extract Shrimp (Diagnostic) Unknown Drug Allergy Active Penicillin Unknown Drug Allergy Active Results Component Value Reference Range Notes Pathology Reviewed date:02/25/2024 09:37:02 AM Interpretation: Performing Lab:[facility], [address] [place] [phone] Notes/Report: Name: Cherelle Smith Age/Sex: 48/F : 1975 Unit#: [id number] Attend Dr: Wesley Olivo MD Re02/12/24 Status : [facility] Location: [facility] Disch: SPEC : [id number] RECD : 02/12/240 STATUS: JOSÉ LUIS HECK NUM: [id number] TRAY: 02/12/24-1234 [facility] DR: Wesley Olivo MD ENTERED: [...] Cherelle Smith Age/Sex: 48/F : 1975 Unit#: [id number] Attend Dr: Wesley Olivo MD Re02/12/24 Status : [facility] Location: [facility] Disch: SPEC : [id number] RECD : 02/12/24-1320 STATUS: JOSÉ LUIS HECK NUM: [id number] TRAY: 02/12/24-1234 [facility] DR: Wesley Olivo MD ENTERED: [...] copic examination, 2 pieces in cassette D. [facility] Special studies orde red and performed: Immunostain for H. pylori on B1; AB/PAS stains on A1, B1, and C1. Copies To: Wesley Olivo MD [address] [place] [address] [address] [place] [address] Gerry Lopez MD 230 [facility] [place] [address] Signed (si gnature on file) Tamy Lowe 02/17/24 1244 END OF REPORT Reason For Referral Referring Provider First Name Gerry Referring Provider Last Name Shantell sellers Referring Provider Speciality Internal M edicine Referred Organization [facility] Referred Provider Wesley Olivo Jr Referred Address [address] [place] [address],[place] [address],[place],[address], Referred Provider Specialty Gastroentero logy Referral Priority [...] Problem Status W/U Status Risk Notes Problem [id number] Abnormal finding s in stool (R19.5) Active confirmed Problem 999839328 H. pylori infection (A04.8) Active confirmed Problem 606792581 Gastroesophageal reflux disease, unspecified whether esophagitis present (K21.9) Active confirmed Problem Gastroesophageal reflux disease (018602164) Chronic GERD (K21.9) Active confirmed Encounters Encounter Location Date Provider Diagnosis [facility] [address] [place], [place] [phone] 02/12/2024 Wesley Olivo Jr Abnormal findings in stool R19.5 ; Colon polyps K63.5 and Chronic GERD K21.9 [facility] [address] [place] [address] 02/24/2024 Wesley Olivo Jr H. pylori infection [...] Provider Name:Wesley ferrer Jr, 04/10/2025 10:40:00 AM, [address] [place] [address], [address], [place], [address], Insurance Providers Payer Name Payer Address Payer Phone Subscriber Number Group Number Insured Name Patient Relationship to Insured Coverage Start Date Coverage End Date MED[place] [place] [address] [place] [phone] [id number] CHERELLE FLOREZ Self - patient is the insured Medical (General) History Medical History History ICD Code esophageal reflux, EGD 05/16, no [place]' s esophagus or H. pylori. Headaches Allergic rhinitis Insomnia Fibromyalgia Osteoarthritis Diabetes mellitus type 2 Surgical History Surgery Date(Month/Year) tonsillectomy tubal ligation
--- OUTSIDE RECORDS SUMMARY | 2025-02-08 13:54 | XMS_ITS | Encounter Summary ---
Author Organization [employer] Address [address] [facility] 7t [place] [address] Care Team Providers Care Furnace Cleaner Name Role Phone Gerry Echavarria MD Primary Care Provide r Reason for Visit * Reason Comments Med Refill Encounter Details Date Type Department Care Team ([facility] st Contact Info) Description 03/24/2024 Refill [facility] 230 [place] [address] Name, MD Wai 230 [place] [address] Seasonal allergies Social History Tobacco Use Types [...] Description 04/18/2025 11:15 AM EDT Office Visit [facility] 230 [place] [address] Gerry Echavarria MD 230 [place] [address] documented as of this encounter Goals Goal [...] documented as of this encounter Care Teams Furnace Cleaner Relationship Specialty Start Date End Date Gerry Echavarria MD [address] [place] [address] PCP - General Internal Medicine 07/26/14 Theron New Nutrition WorkerCase Picker 01/08/24 [facility] 09/28/24 documented as of this encounter
--- OUTSIDE RECORDS SUMMARY | 2025-02-08 13:54 | XMS_ITS | Encounter Summary ---
Author Organization [employer] [facility] Address [address] [place] [address] 7 [place] [address] Care Team Providers Care Vocational Director Name Role Phone Gerry Echavarria MD Primary Care Provide r Reason for Visit * Reason Onset Date Comments Nurse Triage 04/06/2023 Encounter Details Date Type Department Care Team ([facility] st Contact Info) Description 04/06/2023 Telephone [facility] 230 [place], [place] [phone] Gerry Echavarria MD 230 [place] [address] Nurse Triage Social History Tobacco Use Types [...] 04/06/2023 4:58 PM EDT Triage call with [employer] [place] [employer] Audio Engineer [place] [id number] Pt reports cough, sore throat, headache and [...] negative. Pt is advised to come to [facility] today to be seenand Pt agrees [...] Getting worse The caller accepted this outcome (St Helenian speaker) documented in this encounter Plan of Treatment Upcoming Encounters Date Type Department Care Team (Late st Contact Info) Description 04/18/2025 11:15 AM EDT Office Visit [facility] [address] [place], [place] [phone] Gerry Echavarria MD 230 [place], [place] [phone] documented as of this encounter Goals Goal [...] documented as of this encounter Care Teams Vocational Director Relationship Specialty Start Date End Date Gerry Echavarria MD 230 [place], [place] [phone] PCP - General Internal Medicine 07/26/14 Theron New Frozen Yogurt MakerBrick Setter 01/08/24 [facility] 09/28/24 documented as of this encounter
--- OUTSIDE RECORDS SUMMARY | 2025-02-08 13:54 | XMS_ITS | Encounter Summary ---
Author Organization [employer] [facility] Address [address] [place] [address] 7 [place] [address] Care Team Providers Care Patient Access Representative Name Role Phone Gerry Echavarria MD Primary Care Provide r Reason for Visit * Reason Onset Date Comments Med Refill 11/07/2024 Encounter Details Date Type Department Care Team ([facility] st Contact Info) Description 11/07/2024 Refill [facility] 230 [place], [place] [phone] Name, MD Wai [address] [place] [address] Fibromyalgia Social History Tobacco Use Types Packs/Day [...] Description 04/18/2025 11:15 AM EDT Office Visit [facility] 230 [place] [address] Gerry Echavarria MD 230 [place] [address] documented as of this encounter Goals Goal [...] as of this encounter Care Teams Patient Access Representative Relationship Specialty Start Date End Date Gerry Echavarria MD 230 [place] [address] PCP - General Internal Medicine 07/26/14 Theron New Visual Training AideSports Analyst 01/08/24 [facility] 09/28/24 documented as of this encounter
[2025-02-08] MEDS: Ketorolac Tromethamine 15 MG/ML VIAL IVPUSH (15:24)
[2025-02-08] MEDS: PHENobarb/Hyoscy/Atropine/Scop 10 ML ELIXIR PO (15:26)
[2025-02-08] MEDS: Magnesium Hydrox/Alum Hydrox 30 ML ORAL.SUSP PO (15:27)
[2025-02-08 15:28] VITALS: BP 122/74; PULSE 52; RESP 16; TEMP 37.1; O2SAT 100
[2025-02-08] MEDS: Dicyclomine HCl 10 MG CAPSULE PO (16:22)
[2025-02-08] MEDS: Famotidine 20 MG TABLET PO (17:09)
[2025-02-08 17:40] VITALS: BP 122/74; PULSE 52; RESP 16; TEMP 37.1; O2SAT 100
== END 2025-02-08 17:40 | disposition home or self-care (01) ==
PROVIDERS: Emergency Provider Emergency Medicine; PCP Internal Medicine
DX: R10.13 Epigastric pain (principal); R10.11 Right upper quadrant pain; R10.2 Pelvic and perineal pain; R07.89 Other chest pain; R00.1 Bradycardia, unspecified; Z79.899 Other long term (current) drug therapy; Z87.891 Personal history of nicotine dependence
CPT/HCPCS: 36415; 74177; 80053; 81003; 82248; 83690; 84484; 84702; 85025; 93005; 96374; 96375; 99284; 99285; J0131; J1885; Q9967

== ENCOUNTER → 2025-02-08 12:27 | Outpatient (BNV) | payer MEDICAID, SELFPAY | PROVIDERS: Emergency Provider Emergency Medicine; PCP Internal Medicine; Visit Provider Internal Medicine Cardiovascular Disease | DX: R00.1 Bradycardia, unspecified (principal) | CPT/HCPCS: 93010 ==

== ENCOUNTER → 2025-02-08 12:39 | Outpatient (BNV) | payer MEDICAID, SELFPAY | PROVIDERS: Emergency Provider Emergency Medicine; PCP Internal Medicine; Visit Provider Radiology Diagnostic Radiology | DX: R10.32 Left lower quadrant pain (principal) | CPT/HCPCS: 74177 ==

== ENCOUNTER 2025-02-16 13:49 | Outpatient (REF) | payer MEDICAID, SELFPAY ==
--- NOTE | ~2025-02-16 | US_ITS ---
EXAMINATION: US PELVIS TRANSABDOMINAL AND TRANSVAGINAL HISTORY: R ovarian cyst COMPARISON: Correlation is made with a CT of the pelvis with contrast dated 02/08/2025. TECHNIQUE: Transabdominal and endovaginal real-time 2D miguel-scale ultrasound was performed. FINDINGS: Uterus: The uterus is normal in size, measuring 8.8 x 3.5 x 5.8 cm. Myometrium has a normal echotexture. No fibroids are identified. Endometrium: The endometrial stripe measures 2 mm in thickness. There is trace fluid in the endometrial canal. Right ovary: The right ovary measures 5.1 x 3.2 x 4.2 cm. There is a 3.9 x 3.0 x 3.6 cm right ovarian simple cyst. Left ovary: The left ovary measures 2.5 x 0.9 x 1.5 cm. The left ovary is normal in size and echotexture. Pelvic fluid: none. US/US pelvic and transvaginal IMPRESSION: 1. 3.9 x 3.0 x 3.6 cm right ovarian simple cyst. A follow-up is recommended in 6 weeks, at a different time in the patient's mental cycle, to document resolution. 2. Trace fluid in the endometrial canal. Electronically signed by: Edwin Ronquillo MD 02/16/2025 03:02 PM EDT
--- OUTSIDE RECORDS SUMMARY | 2025-02-16 16:52 | XMS_ITS ---
Author Organization [facility] Address [address] [place] [address] Care Team Providers Care Haulage Boss Name Role Phone Shantell Whitehead MD, Gerry [...] Problem Status W/U Status Risk Notes Problem [id number] H. pylori infection (A04.8) Active confirmed Encounters Encounter Location Date Provider Diagnosis [facility] [address] [place] [phone] 02/24/2024 Wesley Olivo Jr H. pylori infection [...] Provider Name:Wesley ferrer Jr, 04/10/2025 10:40:00 AM, [address] [place] [address], [address], [place], [address], Progress Notes * CHERELLE FLOREZDOB: 6 (48 yo F)Acc No.[id number]:02/24/2024 Patient:?CHERELLE FLOREZ :1975???Age:48 Y???Sex:Female Address:[address] [place] [address] [place], [address] * Refills? Start Omeprazole Capsule Delayed Release, [...] true * Date:? Generated for Ada thompson/Tiff/eTransmitting on:?02/16/2025 04:52 PM EDT
--- OUTSIDE RECORDS SUMMARY | 2025-02-16 16:52 | XMS_ITS | Encounter Summary ---
Author Organization [employer] Address [address] 7t [place] [address] Care Team Providers Care Caponizer Name Role Phone Gerry Echavarria MD Primary Care Provide r Reason for Visit * Reason Comments Med Refill Encounter Details Date Type Department Care Team ([facility] st Contact Info) Description 08/18/2023 Refill [facility] 230 [place] [address] Pb [place], [place] COVID-19 Social History Tobacco [...] 04/18/2025 11:15 AM EDT Office Visit [facility] 230 [place], [place] [phone] Gerry Echavarria MD 230 [place] [address] documented as of this encounter Goals Goal Patient Goal Type Associated Problems Recent Progress Patient-Stated? Author Blood Pressure < 140/90 Blood Pressure Essential hypertension 108/78(2024 12:27 PM EDT) No Angel Emmanuel, Roney Note: [...] documented as of this encounter Care Teams Caponizer Relationship Specialty Start Date End Date Gerry Echavarria MD 230 [place] [address] PCP - General Internal Medicine 07/26/14 Theron New [place] Binder CovererEtcher Aircraft 01/08/24 [facility] 09/28/24 02/12/25 [facility] 12/28/24 documented as of this encounter
--- OUTSIDE RECORDS SUMMARY | 2025-02-16 16:52 | XMS_ITS | Encounter Summary ---
Author Organization [employer] Address [address] [facility] 7t [place] [address] Care Team Providers Care Anatomy Professor Name Role Phone Gerry Echavarria MD Primary Care Provide r Reason for Visit * Reason Comments Med Refill Encounter Details Date Type Department Care Team ([facility] st Contact Info) Description 08/18/2023 Refill [facility] 230 [place], [place] [phone] Wendie Sandoval, [facility] [address] [place] [address] Social History Tobacco Use Types Packs/Day Years [...] [facility] 230 [place], [place] [phone] Gerry Echavarria MD [address] [place] [address] documented as of this encounter Goals Goal [...] documented as of this encounter Care Teams Anatomy Professor Relationship Specialty Start Date End Date Gerry Echavarria MD 230 [place] [address] PCP - General Internal Medicine 07/26/14 Theron New Assistant Project ManagerPostal Clerk 01/08/24 [facility] 09/28/24 02/12/25 [facility] 12/28/24 documented as of this encounter
--- OUTSIDE RECORDS SUMMARY | 2025-02-16 16:52 | XMS_ITS | Encounter Summary ---
Author Organization [employer] Address [address] [facility] 7t [place] [address] Care Team Providers Care Odd Job Laborer Name Role Phone Gerry Echavarria MD Primary Care Provide r Reason for Visit * Reason Comments Med Refill Encounter Details Date Type Department Care Team ([facility] st Contact Info) Description 08/08/2023 Refill [facility] 230 [place], [place] [phone] Mala Williamson, ANP [address] [place] [address] Vertigo; Diarrhea, unspecified type; Irritable bowel syndrome, [...] 11:15 AM EDT Office Visit [facility] 230 [place], [place] [phone] Gerry Echavarria MD 230 [place], [place] [phone] documented as of this encounter Goals Goal [...] documented as of this encounter Care Teams Odd Job Laborer Relationship Specialty Start Date End Date Gerry Echavarria MD [address] [place] [address] PCP - General Internal Medicine 07/26/14 Theron New Boiler SetterExhibit Builder 01/08/24 [facility] 09/28/24 02/12/25 [facility] 12/28/24 documented as of this encounter
--- OUTSIDE RECORDS SUMMARY | 2025-02-16 16:52 | XMS_ITS | Clinical Summary ---
Author Organization [address] [facility] Address [address] [place] [address] Phone Care Team Providers Care Online Retailer Name Role Phone Gerry Lopez MD Primary [...] 1:00 PM EDT Office Visit Orthopedic Surgery [address] [address] Juan Frey DPM Synovitis and tenosynovitis of left ankle and foot (Primary Dx); Disorder of ligament of foot, left; Primary osteoarthritis of both feet 12/05/2024 1:15 PM EST Office Visit Orthopedic [place] [address] [address] Juan Frey DPM Primary osteoarthritis of both [...] 03/20/2025 2:30 PM EDT Office Visit Orthopedic Surgery - [place] [address] [address] Juan Frey, DPM [address] [address] Health Maintenance Due Date Last Done Comments Breast Cancer Screening 1975 Diabetes: Annual Foot Exam 1986 Diabetes: Annual Retina Eye Exam 1986 HIV Screening 10/01/2022 Hepatitis C Screening 10/01/2022 Social Influencers of Health Screening 10/01/2022 COVID-19 Vaccine (2023- 5 season) 2024 11/19/2021, 04/28/2021, 03/28/2021 Diabetes: Annual Urine Albumin-Creatinine Ratio (uACR) 10/12/2024 Influenza Vaccine (Season Ended) 2025 01/03/2014 Diabetes: Blood Sugar Contro l Test (HGBA1C) [...] and tenosynovitis of left ankle and foot ANNUAL BMP BLOOD TEST Routine 04/09/2024 FIT-DNA [...] Result * Annual BMP Blood Test (04/09/2024) [facility] Annual BMP Blood Test abstracted Historical Provider HEALTH MAINTENANCE Final Result * FIT-DNA (Cologuard) (12/18/2023) [facility] Colorectal Cancer Screening: FIT-DNA (Cologuard) no interpretation , abstracted Historical Provider HEALTH MAINTENANCE Final Result * Lipid panel (06/03/2023) [facility] Triglycerides 0 mg/dL Comment:no interpretation Cholesterol 0 mg/dL Comment:no interpretation HDL 0 mg/dL Comment:no interpretation LDL Cholesterol 0 mg/dL Comment:no interpretation Blood Venous blood specimen / Unknown [facility] Provider LAB BLOOD ORDERABLES Judy l Result * Hemoglobin A1c (05/21/2022) Hemoglobin A1C 0.0 % Comment:no interpretation Blood Venous blood specimen / Unknown [facility] Provider LAB BLOOD ORDERABLES Judy l Result * Cervical Cancer Screening: HPV (04/17/2021) Cervical Cancer Screening: HPV no interpretation , abstracted [facility] Provider HEALTH MAINTENANCE Final Result from Last 3 Months or Most Recently Relevant to Health Maintenance Insurance MEDICAID - [place] Care Teams Online Retailer Relationship Specialty Start Date End Date Gerry Lopez MD [address] [place] [address] [place] [phone] PCP - General 07/29/22
--- OUTSIDE RECORDS SUMMARY | 2025-02-16 16:52 | XMS_ITS | Clinical Summary ---
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 EDT ? [facility] ?[address] ?[place] [address] ? CT Scan Report ? Signed ? Patient: Bethany Bedoya,Julia ?MR#: ?? [id number] ? : 1975 ?Acct:[id number] ? Age/Sex: 49 / F ?ADM Date: 01/19/25 ? Loc: HO.ED ? Attending Dr: ? Ordering Physician: Kriss Askew ?? Date of Service: 01/19/25 ?? Procedure(s): CT abdomen pelvis wo IV con ?? Accession Number(s): [id number] ? cc: Gerry Lopez MD; Kriss Askew ? Report Number: ?? [id number]: Total DLP = ??734.00 mGy-cm ?? EXAMINATION: [...] DD/ 1413 ? TD/TT: 01/19/25 1420 ? Lambskin Trimmer: ? Procedure Note Donotuseinterpreter, Image - 01/19/[address] [address] [place] Scan Report Signed Patient: Julia SmithMR#: [id number] : 1975Acct:[id number] Age/Sex: 49 / FADM Date: 01/19/25 Loc: HO.ED Attending Dr: Ordering Physician: Kriss Askew Date of Service: 01/19/25 Procedure(s): CT abdomen pelvis wo IV con Accession Number(s): [id number] cc: Gerry Lopez MD; Kriss Askew Report Number: [id number]: Total DLP = 734.00 mGy-cm EXAMINATION: CT [...] 01/19/25 1445 DD/ 1413 TD/TT: 01/19/25 1420 Lambskin Trimmer: [facility] External Provider IMG CT PROCEDURES Final Result * Magnesium (01/19/2025 12:10 PM EDT) Only the most recent of2 resultswithin the time period is included. Magnesium 2.0 1.6 - 2.6 mg/dL [facility] 01/19/2025 12:1 0 PM EDT 01/19/2025 12:13 PM EDT Generic External Data Provider LAB BLOOD ORDERAB LES Final Result [facility] [address] [place] [phone] * (ABNORMAL) Basic Metabolic Panel (01/19/2025 12:10 PM EDT) Only the most recent of2 resultswithin the time period is included. Sodium 140 135 - 145 mmol/L [facility] Potassium 3.6 3.3 - 5.1 mmol/L [facility] Chloride 106 96 - 108 mmol/L [facility] Carbon Dioxide 26 22 - 29 mmol/L [facility] Anion Gap 12 12 - 20 [facility] Urea Nitrogen (BUN) 18(H) 9 - 16 mg/dL [facility] Creatinine, Serum 0.85 0.5 - 1.4 mg/dL [facility] Creatinine Clr Calc Pharmacy 91.1 [facility] Comment:Provided height and weight: 165.1 cm,92.9 kg.eGFR (calculated from the MDRD study equation) and eCrCl(calculated from the Cockcroft-Gault equation) are based ondifferent parameters and may not yield comparable results.If eCrCl result is absurd, please check patient'sheight/weight. Estimated Glomerular Filt Rate >60 [facility] Comment:Chronic Kidney Disea se: Estimated GFR < 60 mL/min/1.56w1Katbmh Kidney Disease: Estimated GFR < 15 mL/min/1.73m2 Glucose 177(H) 60 - 115 mg/dL [facility] Calcium 9.5 8.4 - 10.2 mg/dL [facility] 01/19/2025 12:1 0 PM EDT 01/19/2025 12:13 PM EDT us Generic External Data Provider LAB BLOOD ORDERAB LES Final Result [facility] [address] [place] [address] [phone] * TSH with Reflex to Free T4 (01/19/2025 10:23 AM EDT) Only the most recent of2 resultswithin the time period is included. TSH reflex Free T4 3.67 0.32 - 4.0 uIU/mL [facility] Blood Venous blood specimen / Unknown 01/19/2025 10:23 AM EDT 01/19/2025 11:21 AM EDT Gerry Whitehead MD LAB BLOOD ORDERABLES Final Result Performing Organization Address [facility] de Phone Number [facility] [address] [place] [phone] * Albumin, Random Urine W/Creatinine (01/19/2025 10:23 AM EDT) Creatinine, Urine 258.90 mg/dL [facility] Microalbumin Urine 64.0 mg/L [facility] Microalbum Creatinine Ratio Ur 24.7 <30 ug/mg cr [facility] Comment:Albumin/Creatinine R atio Reference Ranges: Normal: < 30 ug/mg creatinine Microalbuminuria: 30 - 300 ug/mg creatinineClinical Albuminuria: > 300 ug/mg creatinine Urine (Urine, Random) 01/19/2025 10:23 AM EDT 01/19/2025 11:59 AM EDT Gerry Whitehead MD LAB URINE ORDERABLES Final Result Performing Organization Address [facility] de Phone Number [facility] [address] [place] [phone] * (ABNORMAL) POCT urinalysis dipstick manually [...] EDT 01/17/2025 6:33 PM EDT Comment:UACC Narrative [facility] - 01/19/2025 11:46 AM EDT Lactobacillus species Quant 10,000 to 50,000 cfu/mL Specimen Source: Urine clean catch Krystina Haji MD LAB MICROBIOLOGY - GENERAL ORDER BERNA Edited Result - Final Performing Organization Address [facility] Co de Phone Number [facility] [address] [place] [phone] * D Dimer High Sensitivity (01/12/2025 3:45 PM EDT) [facility] D Dimer High Sensitivity 165 NG/ML [facility] Comment:D-DIMER HS REFERENCE RANGENote: Our [...] ORDERAB LES Final Result Performing Organization Address [facility]/ZIP Co de Phone Number [facility] [address] [place] [phone] * SARS-CoV-2 RNA, Influenza A/B, and RSV RNA, Ql NAAT (01/12/2025 12:10 PM EDT) Pathologist [facility] Influenza A PCR NEGATIVE Negative [facility] Influenza B PCR NEGATIVE Negative [facility] Resp Syncy Virus RNA Qual PCR NEGATIVE Negative [facility] SARS COV2 PCR NEGATIVE Negative [facility] Comment:All test results mus t [...] use by authorized laboratories.Testing performed on the [employer] GeneXpert utilizingreal-time RT-PCR.All SARS CoV2 and positive influenza A/B results arereported to [facility]. 01/12/2025 12:1 0 PM EDT 01/12/2025 12:18 PM EDT Generic External Data Provider LAB MICROBIOLOGY - GENERAL ORDERABLES Final Result [facility] [address] [place] [address] [phone] * XR Chest 2 Views (01/12/2025 11:56 AM EDT) Anatomical Region Laterality Modality Chest Radiographic Angy ging 01/12/2025 11:5 6 AM EDT Narrative 01/12/2025 12:47 PM EDT ? [facility] ?[address] ?[place] [address] ?XRay Report ? Signed ? Patient: Bethany Bedoya,Julia ?MR#: ?? [id number] ? : 1975 ?Acct:[id number] ? Age/Sex: 49 / F ?ADM Date: 03/13/25 ? Loc: HO.ED ? Attending Dr: ? Ordering Physician: Kriss Askew ?? Date of Service: 01/12/25 ?? Procedure(s): XR chest 2V ?? Accession Number(s): [id number] ? cc: Aubrie Trinidad MD; Kriss Askew [...] DD/ 1156 ? TD/TT: 01/12/25 1239 ? Lambskin Trimmer: ? Procedure Note Donpattiinterpreter, Image - 01/12/[address] [address] XRay Report Signed Patient: Julia SmithMR#: [id number] : 1975Acct:[id number] Age/Sex: 49 / FADM Date: 01/12/25 Loc: .ED Attending Dr: Ordering Physician: Kriss Askew Date of Service: 01/12/25 Procedure(s): XR chest 2V Accession Number(s): [id number] cc: Aubrie Trinidad MD; Kriss Askew EXAMINATION: [...] Edwin Ronquillo MD 01/12/2025 12:45 PM EDT Dictated By: Edwin Ronquillo MD Signed By: <Electronically signed by Edwin Ronquillo MD in OV> 01/12/25 1245 DD/ 1156 TD/TT: 01/12/25 1239 Lambskin Trimmer: [facility] External Provider IMG XR PROCEDURES Edited Result - Final * (ABNORMAL) POCT HGB A1C (01/10/2025 9:59 AM EDT) Pathologist [facility] Hemoglobin A1C 6.7(A) 4.0 - 6.0 % QC Media Lot # [id number] Lot# Expiration Date ,026 Blood 01/10/2025 9:59 AM EDT Gerry Whitehead MD POINT OF CARE TEST EN TER/EDIT ORDERABLES Final Result * (ABNORMAL) POCT Glucose (01/10/2025 9:56 AM EDT) Pathologist [facility] Glucose Blood, POC 228(A) 60 - 200 mg/dL QC Media Lot # [id number] Lot# Expiration Date ,856,665 Blood Capillary blood specimen / Unknown 01/10/2025 9:56 AM EDT Gerry Whitehead MD POINT OF CARE TEST EN TER/EDIT ORDERABLES Final Result * (ABNORMAL) Lipid Panel, Standard (08/18/2024 11:31 AM EDT) Triglycerides 107 <150 mg/dL [facility] Comment:Desirable Triglyceri de: less than 150 mg/dLBorderline High Triglyceride 150-199 mg/dLHigh Triglyceride: 200-499 mg/dLVery High Triglyceride: greater than or equal to 5OO mg/dL Cholesterol 208(H) <200 mg/dL [facility] Comment:Desirable Cholestero l: less than 200 mg/dLBorderline High Cholesterol: 200-239 mg/dLHigh Cholesterol: greater than 239 mg/dL LDL Cholesterol Calculated 115(H) <100 mg/dL [facility] Comment:Desirable LDL: less than 100 mg/dLNear Optimal/Above Optimal LDL: 110- 129 mg/dLBorderline High LDL: 130-159 mg/dLHigh LDL: 160-189 mg/dLVery High LDL: greater than or equal to 190 mg/dL HDL Cholesterol 72 >40 mg/dL [facility] Comment:Desirable HDL: great er than 40 mg/dL Note: This HDL assay may give artificially low results in patients with liver disease. Blood Venous blood specimen / Unknown 08/18/2024 11:31 AM EDT 08/18/2024 1:14 PM EDT us Gerry Whitehead MD LAB BLOOD ORDERABLES Final Result [facility] [address] [place] [address] [phone] * BI Mammogram Screening Tomosynthesis Bilateral (06/09/2024 12:35 PM EDT) Anatomical Region Laterality Modality Breast Bilateral Mammography 06/09/2024 12:3 5 PM EDT Narrative 07/07/2024 11:45 AM EDT ? [facility] ? [address] ?[place] [address] ? Mammography Report ? Signed ? Patient: Julia Smith ?MR#: ?? [id number] ? : 1975 ?Acct:[id number] ? Age/Sex: 49 / F ?ADM Date: //24 ? Loc: HO.MAMMO ? Attending : Aubrie Trinidad MD ? Ordering Physician: Aubrie Trinidad MD ?Results: 1 ?? Negative ? Date of Service: 06/09/24 ?Follow Up: 1 Year From Orig ?? inal Mammogram ? Procedure(s): MM tomosynthesis screening BI ?? Accession Number(s): [id number] ? cc: Aubrie Trinidad MD ? EXAMINATION: [...] DD/ 1235 ? TD/TT: 06/09/24 1250 ? Lambskin Trimmer: ? Procedure Note Donotuseinterpreter, Image - 07/07/2024 [facility] [facility] [address] [place], [place] [address] Mammography Report Signed Patient: Julia SmithMR#: [id number] : 1975Acct:[id number] Age/Sex: 49 / FADM Date: 06/09/24 Loc: HO.MAMMO Attending Dr: Aubrie Trinidad MD Ordering Physician: Aubrie Trinidad MDResults: 1 Negative Date of Service: 06/09/24Follow Up: 1 Year From Orig inal Mammogram Procedure(s): MM tomosynthesis screening BI Accession Number(s): [id number] cc: Aubrie Trinidad MD EXAMINATION: MM SCREENING [...] 07/07/24 1142 DD/ 1235 TD/TT: 06/09/24 1250 Lambskin Trimmer: Aubrie Trinidad MD IMG BI PROCEDURES Edited Re sult - Final * Hm Colonoscopy (02/08/2024) Colonoscopy Normal Normal Historical Provider HEALTH MAINTENANCE Final Result * (ABNORMAL) Cologuard?? colon cancer screening (12/18/2023 11:00 AM EST) Cologuard Result Positive( A) Negative 12/27/2023 11:00 AM EST [facility] (CLIA #:[id number]) Comment: POSITIVE TEST RESULT. A positive Cologuard [...] (Jesenia Perez al, N Engl J Med 2014;370(14):1238-7293.) Cologuard may produce a false negative or false positive result (no colorectal cancer or precancerous polyp present at colonoscopy follow up). A negative Cologuard test result does not guarantee the absence of CRC or advanced adenoma (pre-cancer). The current Cologuard screening interval is every 3 years. (Citizen [place] Cancer Society and U.S. Multi-Society Task Force). Cologuard performance data in a 10,000 patient pivotal study using colonoscopy as the reference method can be accessed at the following location: www.[email or web address].[employer]results. Additional description of the Cologuard test process, warnings and precautions can be found at [email or web address].comrd.com. Stool specimen (specimen) 12/18/2023 11:00 AM EST 12/19/2023 1:02 PM EST Gerry Whitehead MD LAB MOLECULAR DIAGNOS TICS ORDERABLES Final Result [facility] (CLIA #:[id number]) [place] [address], * THINPREP PAP (04/17/2021 10:22 AM EDT) [...] historic and ?? current clinical information. ?? Tripper : SEE COMMENT [facility] Comment: GSG, CT(ASCP) CT screening location: [address] ??[address] Interpretation/R esult: Negative for intraepithelial lesion or malignancy. [facility] LMP: 03/21/2021 [facility] Prev. BX: NONE [facility] Prev. PAP: NIL 03/2015 HPV - FO [facility] SOURCE: Cervix [facility] Statement Of Adequacy: SEE COMMENT [facility] Comment: Satisfactory for evaluation. Endocervical/transformation zone component present. 04/17/2021 10:2 2 AM EDT Wendie DONG LAB PATHOLOGY ORDERABLES Final Result Performing Organization Address [facility] Co de Phone Number [facility] [address] * HPV mRNA E6/E7 (04/17/2021 10:22 AM EDT) HPV nRNA E6/E7 Not Detected Not Detected [facility] Comment: Methodology: Wedger-Mediated Amplification This assay detects E6/E7 viral messenger RNA (mRNA) from 14 high-risk HPV types (16,18,31,33,35,39,45,51,52,56,58,59,66,68). ? The analytical performance characteristics of this assay have been determined by [employer]. The modifications have not been cleared or approved by the FDA. This assay has been validated pursuant to the CLIA regulations and is used for clinical purposes. ?? For additional information, please refer to http://education.Remicalm/faq/IQJ229i3 (This link if provided for information/ educational purposes only.) 04/17/2021 10:2 2 AM EDT Wendie DONG LAB BLOOD ORDERABLES Judy l Result Performing Organization Address [facility] de Phone Number [facility] [address] from Last 3 Months or Most Recently Relevant to Health Maintenance Insurance [facility] C3 Care Teams Meat Carver Relationship Specialty Start Date End Date Gerry Echavarria MD [address] [place] [phone] PCP - General Internal Medicine 07/26/14 Theron New Field Installation TechnicianWood Furniture Assembler 01/08/24 [facility] 12/28/24
--- OUTSIDE RECORDS SUMMARY | 2025-02-16 16:52 | XMS_ITS | Encounter Summary ---
Author Organization [facility] Address [address] [facility] 7t [place] [address] Care Team Providers Care Patient Relations Coordinator Name Role Phone Gerry Echavarria MD Primary Care Provide r Reason for Visit * Reason Comments Med Refill Encounter Details Date Type Department Care Team ([facility] st Contact Info) Description 09/10/2023 Refill [facility] [address] [place], [place] [phone] Gerry Echavarria MD [address] [place], [place] [phone] Social History Tobacco Use Types Packs/Day Years [...] 04/18/2025 11:15 AM EDT Office Visit [facility] [address] [place] [address] Gerry Echavarria MD [address] [place] [address] documented as of this encounter Goals Goal [...] as of this encounter Care Teams Patient Relations Coordinator Relationship Specialty Start Date End Date Gerry Echavarria MD [address] [place] [address] PCP - General Internal Medicine 07/26/14 Theron New Bulb PackerConference And Event Organiser 01/08/24 [facility] 09/28/24 02/12/25 [facility] 12/28/24 documented as of this encounter
--- OUTSIDE RECORDS SUMMARY | 2025-02-16 16:52 | XMS_ITS | Encounter Summary ---
Author Organization [employer] Address [address] [facility] [address]t [place] [address] Care Team Providers Care Systems Security Consultant Name Role Phone Gerry Echavarria MD Primary Care Provide r Reason for Visit * Reason Comments Med Refill Encounter Details Date Type Department Care Team ([facility] st Contact Info) Description 08/18/2023 Refill [facility] [address] [place], [place] [phone] Krystina Haji MD [address] [place], [place] [phone] Mixed anxiety and depressive disorder; Chronic migraine [...] Office Visit [facility] [address] [place], [place] [phone] Gerry Echavarria MD [address] [place] [address] documented as of this encounter Goals Goal [...] documented as of this encounter Care Teams Systems Security Consultant Relationship Specialty Start Date End Date Gerry Echavarria MD [address] [place] [address] PCP - General Internal Medicine 07/26/14 Theron New Administrative Assistant Data EntryDobie Worker 01/08/24 [facility] 09/28/24 02/12/25 [facility] 12/28/24 documented as of this encounter
--- OUTSIDE RECORDS SUMMARY | 2025-02-16 16:52 | XMS_ITS | Encounter Summary ---
Author Organization [employer] Address [address] [facility] 7t [place] [address] Care Team Providers Care Property Supervisor Name Role Phone Gerry Echavarria MD Primary Care Provide r Reason for Visit * Reason Onset Date Comments Med Refill 10/11/2024 Encounter Details Date Type Department Care Team ([facility] st Contact Info) Description 10/11/2024 Telephone [facility] [address] [place], [place] [phone] Gerry Echavarria MD [address] [place] [address] Med Refill Social History Tobacco Use Types [...] 10 MG tablet To be sent to: [facility]/pharmacy [address] [place] [address] ABDULAZIZ TALAVERA documented in this encounter Plan of Treatment Upcoming Encounters Date Type Department Care Team (Late st Contact Info) Description 04/18/2025 11:15 AM EDT Office Visit [facility] [address] [place] [address] Gerry Echavarria MD [address] [place] [address] documented as of this encounter Goals Goal Patient Goal Type Associated Problems Recent Progress Patient-Stated? Author Blood Pressure < 140/90 Blood Pressure Essential hypertension 108/78(2024 12:27 PM EDT) No Angel Emmanuel Roney Note: [...] documented as of this encounter Care Teams Property Supervisor Relationship Specialty Start Date End Date Gerry Echavarria MD [address] [place] [phone] PCP - General Internal Medicine 07/26/14 Theron New Human Machine Interface EngineerAgricultural Science Professor 01/08/24 [facility] 09/28/24 02/12/25 [facility] 12/28/24 documented as of this encounter
--- OUTSIDE RECORDS SUMMARY | 2025-02-16 16:52 | XMS_ITS | Encounter Summary ---
Author Organization [employer] Address [address] [facility] [address] [place] [address] Care Team Providers Care Rewrite Editor Name Role Phone Gerry Echavarria MD Primary Care Provide r Reason for Visit * Reason Comments Med Refill Encounter Details Date Type Department Care Team ([facility] st Contact Info) Description 09/20/2023 Refill [facility] [address] [place], [place] [phone] Amalia Ta MD [address] [place] [address] Social History Tobacco Use Types Packs/Day Years [...] Description 04/18/2025 11:15 AM EDT Office Visit [facility] MED[facility]INE [address] [place], [place] [phone] Gerry Echavarria MD [address] [place] [address] documented as of this encounter Goals Goal [...] documented as of this encounter Care Teams Rewrite Editor Relationship Specialty Start Date End Date Gerry Echavarria MD [address] [place] [address] PCP - General Internal Medicine 07/26/14 Theron [place] Fire FighterProject Internship 01/08/24 [facility] 09/28/24 02/12/25 [facility] 12/28/24 documented as of this encounter
--- OUTSIDE RECORDS SUMMARY | 2025-02-16 16:52 | XMS_ITS | Encounter Summary ---
Author Organization [employer] Address [address] [facility] 7t [place] [address] Care Team Providers Care Breaker Unit Assembler Name Role Phone Gerry Echavarria MD Primary Care Provide r Encounter Details Date Type Department Care Team ([facility] st Contact Info) Description 10/06/2024 Telephone [facility] [address] [place] [address] Gerry Echavarria MD [address] [place], [place] [phone] Social History Tobacco Use Types Packs/Day Years [...] Description 04/18/2025 11:15 AM EDT Office Visit [facility] [address] [place] [address] Gerry Echavarria MD [address] [place] [address] documented as of this encounter Goals Goal [...] documented as of this encounter Care Teams Breaker Unit Assembler Relationship Specialty Start Date End Date Gerry Echavarria MD [address] [place] [phone] PCP - General Internal Medicine 07/26/14 Theron New Medical AccountantTyping Section Chief 01/08/24 [facility] 09/28/24 02/12/25 [facility] 12/28/24 documented as of this encounter
--- OUTSIDE RECORDS SUMMARY | 2025-02-16 16:52 | XMS_ITS | Encounter Summary ---
Author Organization [employer] Address 75 [facility] 7t [place] [address] Care Team Providers Care Decision Support Analyst Name Role Phone Gerry Echavarria MD Primary Care Provide r Reason for Visit * Reason Comments Med Refill Encounter Details Date Type Department Care Team ([facility] st Contact Info) Description 09/10/2023 Refill [facility] 230 [place], [place] [phone] Wendie Sandoval, [facility] 230 [place] [address] Social History Tobacco Use Types Packs/Day Years [...] EDT Office Visit [facility] 230 [place], [place] [phone] Gerry Echavarria MD 230 [place] [address] documented as of this encounter Goals Goal [...] documented as of this encounter Care Teams Decision Support Analyst Relationship Specialty Start Date End Date Gerry Echavarria MD 230 [place] [address] PCP - General Internal Medicine 07/26/14 Theron New Mine Production EngineerInstallation Superintendent 01/08/24 [facility] 09/28/24 02/12/25 [facility] 12/28/24 documented as of this encounter
--- OUTSIDE RECORDS SUMMARY | 2025-02-16 16:52 | XMS_ITS | Encounter Summary ---
Author Organization [employer] Address 75 [facility] 7t [place] [address] Care Team Providers Care Air Export Operations Agent Name Role Phone Gerry Echavarria MD Primary Care Provide r Reason for Visit * Reason Comments Med Refill Encounter Details Date Type Department Care Team ([facility] st Contact Info) Description 08/08/2023 Refill [facility] 230 [place] [address] Name, MD Wai 230 [place] [address] Mixed anxiety and depressive disorder Social History [...] Description 04/18/2025 11:15 AM EDT Office Visit [facility] 230 [place] [address] Gerry Echavarria MD 230 [place] [address] documented as of this encounter Goals Goal [...] documented as of this encounter Care Teams Air Export Operations Agent Relationship Specialty Start Date End Date Gerry Echavarria MD 230 [place] [address] PCP - General Internal Medicine 07/26/14 Theron New Classification InspectorSales Agent Financial Report Service 01/08/24 [facility] 09/28/24 02/12/25 [facility] 12/28/24 documented as of this encounter
--- OUTSIDE RECORDS SUMMARY | 2025-02-16 16:52 | XMS_ITS | Encounter Summary ---
Author Organization [employer] Address 75 [facility] 7t [place] [address] Care Team Providers Care Dryland Farmer Name Role Phone Gerry Echavarria MD Primary Care Provide r Reason for Visit * Reason Comments Med Refill Encounter Details Date Type Department Care Team ([facility] st Contact Info) Description 08/25/2023 Refill [facility] 230 [place], [place] [phone] Wendie Sandoval, [facility] 230 [place] [address] Social History Tobacco Use Types Packs/Day Years [...] Office Visit [facility] 230 [place], [place] [phone] Gerry Echavarria MD 230 [place] [address] documented as of this encounter Goals Goal [...] documented as of this encounter Care Teams Dryland Farmer Relationship Specialty Start Date End Date Gerry Echavarria MD 230 [place] [address] PCP - General Internal Medicine 07/26/14 Theron New Voice And Data Technician3D Animator 01/08/24 [facility] 09/28/24 02/12/25 [facility] 12/28/24 documented as of this encounter
--- OUTSIDE RECORDS SUMMARY | 2025-02-16 16:53 | XMS_ITS | Encounter Summary ---
Author Organization [employer] Address 75 [facility] 7t [place] [address] Care Team Providers Care Underground Production Foreperson Name Role Phone Gerry Echavarria MD Primary Care Provide r Reason for Visit * Reason Onset Date Comments Order 09/18/2023 Encounter Details Date Type Department Care Team ([facility] st Contact Info) Description 09/18/2023 Telephone [facility] MEDICINE 230 [place], [place] [phone] Gerry Echavarria MD 230 [place] [address] Order Social History Tobacco Use Types Packs/Day [...] and video instructions. Please contact pt at [phone] Italian Speaker TC placed with [employer] ID # [id number]. Pt answered the phone and hung up on diamond sawer, called placed again and a message was left in Italian for her to contact the [facility]. I do not see anything [...] and video instructions. Please contact pt at [phone] Italian Speaker documented in this encounter Plan of Treatment Upcoming Encounters Date Type Department Care Team (Late st Contact Info) Description 04/18/2025 11:15 AM EDT Office Visit [facility] MEDICINE [address] [place] [address] Gerry Echavarria MD 230 [facility] [address] documented as of this encounter Goals Goal Patient Goal Type Associated Problems Recent Progress Patient-Stated? Author Blood Pressure < 140/90 Blood Pressure Essential hypertension 108/78(2024 12:27 PM EDT) No Angel Emmanuel PharmD Note: [...] documented as of this encounter Care Teams Underground Production Foreperson Relationship Specialty Start Date End Date Gerry Echavarria MD [address] [facility] [place] [address] PCP - General Internal Medicine 07/26/14 Theron New Astro TechnicianFinancial Reporting Analyst 01/08/24 [facility] 09/28/24 02/12/25 [facility] 12/28/24 documented as of this encounter
--- OUTSIDE RECORDS SUMMARY | 2025-02-16 16:53 | XMS_ITS | Patient Health Record ---
Author Organization [facility] Address [address] [place] [phone] Care Team Providers Care Chief Legal Officer Name Role Phone Shantell Whitehead MD, Gerry Primary Care Provide r Unavailable Wesley Olivo Jr Unavailable [phone] Allergies Allergen (clinical drug ingredient) Drug/Non Drug Allergy documented on EMR Reaction Allergy Type Onset Date Status shrimp allergenic extract Shrimp (Diagnostic) Unknown Drug Allergy Active Penicillin Unknown Drug Allergy Active Reason For Referral No Information Medications Medication SIG (Take, Route, Frequency, Duration) [...] 100 MG TAKE 2 CAPSULES BY M OUT 3 TIMES A DAY Oral for 30 [...] Problem Status W/U Status Risk Notes Problem 381275118 Abnormal finding s in stool (R19.5) Active confirmed Problem [id number] H. pylori infection (A04.8) Active confirmed Problem 982116655 Gastroesophageal reflux disease, unspecified whether esophagitis present (K21.9) Active confirmed Problem Gastroesophageal reflux disease (497460487) Chronic GERD (K21.9) Active confirmed Encounters Encounter Location Date Provider Diagnosis [address] [place] [phone] 02/24/2024 Wesley Olivo Jr H. pylori infection A04.8 Assessments Encounter Date Diagnosis (ICD Code) Assessment Notes Treatment Notes Treatment Clinical Notes Section Notes 02/24/2024 H. pylori infection (ICD-10 - A04.8) Plan Of Treatment Pending Test Test Name Order Date H PYLORI AG, STOOL 02/24/2024 Future Test Test Name Order Date UPPER GI ENDOSCOPY 05/02/2015 UPPER GI ENDOSCOPY 01/13/2024 COLONOSCOPY 01/13/2024 Next Appt Details Provider Name:Wesley ferrer Jr, 04/10/2025 10:40:00 AM, [address] [place] [address], [address], [place], [address], Insurance Providers Payer Name Payer Address Payer Phone Subscriber Number Group Number Insured Name Patient Relationship to Insured Coverage Start Date Coverage End Date [facility]ICA[facility] [address] [place] [address] [id number] CHERELLE FLOREZ Self - patient is the insured Medical (General) History Medical History History ICD Code esophageal reflux, EGD 05/16, no [place]' s esophagus or H. pylori. Headaches Allergic rhinitis Insomnia Fibromyalgia Osteoarthritis Diabetes mellitus type 2 Surgical History Surgery Date(Month/Year) tonsillectomy tubal ligation
--- OUTSIDE RECORDS SUMMARY | 2025-02-16 16:53 | XMS_ITS | Encounter Summary ---
Author Organization [employer] Address 75 [facility] 7t [place] [address] Care Team Providers Care Portfolio Accountant Name Role Phone Grery Echavarria MD Primary Care Provide r Reason for Visit * Reason Comments Med Refill Encounter Details Date Type Department Care Team ([facility] st Contact Info) Description 09/20/2023 Refill [facility] 230 [place], [place] [phone] Mala Williamson, ANP 230 [place] [address] Diarrhea, unspecified type; Irritable bowel syndrome, unspecified [...] Description 04/18/2025 11:15 AM EDT Office Visit [facility] 230 [place] [address] Gerry Echavarria MD 230 [place] [address] documented as of this encounter Goals Goal [...] documented as of this encounter Care Teams Portfolio Accountant Relationship Specialty Start Date End Date Gerry Echavarria MD [address] [place] [address] PCP - General Internal Medicine 07/26/14 Theron New Hand TierAirport Operations Supervisor 01/08/24 [facility] 09/28/24 02/12/25 [facility] 12/28/24 documented as of this encounter
--- OUTSIDE RECORDS SUMMARY | 2025-02-16 16:53 | XMS_ITS | Encounter Summary ---
Author Organization [employer] [facility] Address [address] [place] [address] 7 [place] [address] Care Team Providers Care Structural Steel Detailer Name Role Phone Gerry Echavarria MD Primary Care Provide r Reason for Visit * Reason Onset Date Comments Med Refill 11/07/2024 Encounter Details Date Type Department Care Team ([facility] st Contact Info) Description 11/07/2024 Refill [facility] MEDICINE 230 [place], [place] [phone] Name, MD Wai 230 [place] [address] Fibromyalgia Social History Tobacco Use Types Packs/Day [...] AM EDT Office Visit [facility] MED[facility]INE 230 [place] [address] Gerry Echavarria MD 230 [place] [address] documented as of this encounter Goals Goal [...] documented as of this encounter Care Teams Structural Steel Detailer Relationship Specialty Start Date End Date Gerry Echavarria MD 230 [place] [address] PCP - General Internal Medicine 07/26/14 Theron New Plumbing AssemblerDirector Life Sciences 01/08/24 [facility] 09/28/24 02/12/25 [facility] 12/28/24 documented as of this encounter
--- OUTSIDE RECORDS SUMMARY | 2025-02-16 16:53 | XMS_ITS | Encounter Summary ---
Author Organization [employer] Address 75 [facility] 7t [place] [address] Care Team Providers Care Hydro Plant Site Manager Name Role Phone Gerry Echavarria MD Primary Care Provide r Reason for Visit * Reason Comments Med Refill Encounter Details Date Type Department Care Team (Late st Contact Info) Description 11/13/2023 Refill [facility] 230 [place], [place] [phone] Krystina Haji MD 230 [place], [place] [phone] Chronic migraine without aura without status migrainosus, [...] Description 04/18/2025 11:15 AM EDT Office Visit [facility] 230 [place], [place] [phone] Gerry Echavarria MD 230 [place], [place] [phone] documented as of this encounter Goals Goal [...] documented as of this encounter Care Teams Hydro Plant Site Manager Relationship Specialty Start Date End Date Gerry Echavarria MD [address] [place] [address] PCP - General Internal Medicine 07/26/14 Theron New Area CaptainWorld Geography Teacher 01/08/24 [facility] 09/28/24 02/12/25 [facility] 12/28/24 documented as of this encounter
--- OUTSIDE RECORDS SUMMARY | 2025-02-16 16:53 | XMS_ITS | Encounter Summary ---
Author Organization [employer] Address 75 [facility] 7t [place] [address] Care Team Providers Care Cryptographic Clerk Name Role Phone Gerry Echavarria MD Primary Care Provide r Reason for Visit * Reason Comments Med Refill Encounter Details Date Type Department Care Team ([facility] st Contact Info) Description 09/20/2023 Refill [facility] 230 [place], [place] [phone] [facility] 230 [place] [address] Folliculitis Social History Tobacco Use Types Packs/Day [...] [facility] 230 [place] [address] Gerry Echavarria MD 230 [place] [address] documented as of this encounter Goals Goal [...] documented as of this encounter Care Teams Cryptographic Clerk Relationship Specialty Start Date End Date Gerry Echavarria MD 230 [place] [address] PCP - General Internal Medicine 07/26/14 Theron New Client Account RepresentativeBody Line Finisher 01/08/24 [facility] 09/28/24 02/12/25 [facility] 12/28/24 documented as of this encounter
--- OUTSIDE RECORDS SUMMARY | 2025-02-16 16:53 | XMS_ITS ---
Author Organization [facility] Address [address] [facility] [address] [place] [address] Care Team Providers Care Business Insurance Agent Name Role Phone Shantell Whitehead MD, Gerry Primary Care Provide r Itz Olivo Jr, Wesley Unavailable REASON FOR VISIT gerd,abn findings in stool Problems Problem Type SNOMED Code ICD Code Onset Dates Problem Status W/U Status Risk Notes Problem Gastroesophageal reflux disease (870112242) Chronic GERD (K21.9) Active confirmed Encounters Encounter Location Date Provider Diagnosis [facility] Outpatient [address] [place] [phone] 02/12/2024 Wesley Olivo Jr Abnormal findings in [...] Name:Wesley ferrer Jr, 04/10/2025 10:40:00 AM, [address] [facility] [address], [address], [place], [address], Progress Notes * FLOREZCHERELLE BEANDOB: 6 (49 yo F)Acc No.[id number]:02/12/2024 EGD and COL/MAC Patient:?LEISA FLOREZARIS Provider:?Wesley Olivo MD :1975???Age:48 Y???Sex:Female D ate:02/12/2024 Address: [place], [id number] Pcp:Gerry flores MD Subjective: * Chief Complaints: * ???1. Gerd,abn findings in s tool. * Medical History:? Objective: * Vitals:? Assessment: * Assessment: 1.?Abnormal findings in stoo l - R19.5 (Primary)???2.?Colon polyps - K63.5???3.?Chronic GERD - K21.9??? Plan: * Treatment: * Procedure Codes:?86972 LESIO N REMOVAL COLONOSCOPY, 30015 UPPER GI ENDOSCOPY, BIOPSY * * The named appointment provid er may or may not be the originator of this progress note, and it is not deemed complete until electronically signed by the appointment provider. Sign off status: Pending * Provider:?Wesley Olivo MD Date:?0 02/12/2024 Generated for Ada thompson/Tiff/eTransmitting on:?02/16/2025 04:53 PM EDT
--- OUTSIDE RECORDS SUMMARY | 2025-02-16 16:53 | XMS_ITS | Encounter Summary ---
Author Organization [employer] Address 75 [facility] 7t [place] [address] Care Team Providers Care Field Laboratory Operator Name Role Phone Gerry Echavarria MD Primary Care Provide r Reason for Visit * Reason Comments Med Refill Encounter Details Date Type Department Care Team ([facility] st Contact Info) Description 09/22/2023 Refill [facility] MEDICINE 230 [place], [place] [phone] Tracey Leyva MD 230 [place], [place] [phone] Social History Tobacco Use Types Packs/Day Years [...] Description 04/18/2025 11:15 AM EDT Office Visit [facility] MED[facility] 230 [place], [place] [phone] Gerry Echavarria MD 230 [place] [address] documented as of this encounter Goals Goal [...] documented as of this encounter Care Teams Field Laboratory Operator Relationship Specialty Start Date End Date Gerry Echavarria MD 230 [place] [address] PCP - General Internal Medicine 07/26/14 Theron New Visual Merchandising ManagerDetasseling Crew Supervisor 01/08/24 [facility] 09/28/24 02/12/25 [facility] 12/28/24 documented as of this encounter
--- OUTSIDE RECORDS SUMMARY | 2025-02-16 16:53 | XMS_ITS | Encounter Summary ---
Author Organization [employer] [facility] Address [address] [place] [address] 7 [place] [address] Care Team Providers Care Global Security Architect Name Role Phone Gerry Echavarria MD Primary Care Provide r Reason for Visit * Reason Onset Date Comments Nurse Triage 04/06/2023 Encounter Details Date Type Department Care Team ([facility] st Contact Info) Description 04/06/2023 Telephone [facility] MEDICINE 230 [place], [place] [phone] Gerry Echavarria MD 230 [place] [address] Nurse Triage Social History Tobacco Use Types [...] 04/06/2023 4:58 PM EDT Triage call with [employer] Magazine Repairer [place] [id number] Pt reports cough, sore throat, headache and [...] negative. Pt is advised to [facility] today to be seenand Pt [...] become worse * Telephone Encounter - Jess Sahlom - 04/06/2023 4:41 PM EDT Symptoms: Sore Throat, Earache, Headache Outcome: Schedule an urgent appointment (within 4 hours) or talk to a nurse or provider soon Reason: Getting worse The caller accepted this outcome ([place] Islander speaker) documented in this encounter Plan of Treatment Upcoming Encounters Date Type Department Care Team (Late st Contact Info) Description 04/18/2025 11:15 AM EDT Office Visit [facility] MEDICINE 230 [place], [place] [phone] Gerry Echavarria MD 230 [place], [place] [phone] documented as of this encounter Goals Goal [...] documented as of this encounter Care Teams Global Security Architect Relationship Specialty Start Date End Date Gerry Echavarria MD 230 [place], [place] [phone] PCP - General Internal Medicine 07/26/14 Theron New Lead Burner ApprenticeAssembler Erector 01/08/24 [facility] 09/28/24 02/12/25 [facility] 12/28/24 documented as of this encounter
--- OUTSIDE RECORDS SUMMARY | 2025-02-16 16:53 | XMS_ITS | Encounter Summary ---
Author Organization [employer] [facility] Address [address] [place] [address] 7 [place] [address] Care Team Providers Care Internal Audit Manager Name Role Phone Gerry Echavarria MD Primary Care Provide r Reason for Referral * Consultation (Routine) - Authorized Specialty Diagnoses / Procedures Referred By Contsanket t Referred To Contact Urology Diagnoses Nephrolithiasis Krystina Haji MD [address] [place] [address] Phone: tel: fax: [facility] Referral ID Status Reason Start Date Expiration Date Visits Requested Visits Authorized [id number] Authorized Specialty Services Required 01/24/2025 01/24/2026 6 6 Encounter Details Date Type Department Care Team (Late st Contact Info) Description 01/21/2025 Orders Only [facility] MEDICINE [address] [place] [phone] Krystina Haji MD 230 [place], [place] [phone] Nephrolithiasis (Primary Dx) Social History Tobacco Use [...] Description 04/18/2025 11:15 AM EDT Office Visit [facility] MEDICINE 230 [place] [address] Gerry Echavarria MD 230 [place] [address] Scheduled Referrals Name Type Priority Associated Diagnoses [...] documented as of this encounter Care Teams Internal Audit Manager Relationship Specialty Start Date End Date Gerry Echavarria MD [address] [place] [address] PCP - General Internal Medicine 07/26/14 Theron New Barley SteeperNutrition Instructor 01/08/24 [facility] 09/28/24 02/12/25 [facility] 12/28/24 documented as of this encounter
--- OUTSIDE RECORDS SUMMARY | 2025-02-16 16:53 | XMS_ITS ---
Author Organization [facility] Address 10 [facility] [address] [place] [address] Care Team Providers Care Mri Specialist Name Role Phone Shantell Whitehead MD, Gerry [...] Provider Diagnosis [facility] [address] [place] [phone] 01/13/2024 Wesley Olivo Jr Plan Of Treatment [...] Provider Name:Wesley ferrer Jr, 04/10/2025 10:40:00 AM, [address] [place] [address], [address], [place], [address], Progress Notes * CHERELLE FLOREZDOB: 6 (48 yo F)Acc No.[id number]:01/13/2024 Patient:?CHERELLE FLOREZ :1975???Age:48 Y???Sex:Female Address:[address] [place] [address], [place] [address] * Refills? Start MiraLax (colon prep), 8.3 [...] true * Date:? Generated for Ada thompson/Tiff/Himanshuitting on:?02/16/2025 04:52 PM EDT
--- OUTSIDE RECORDS SUMMARY | 2025-02-16 16:53 | XMS_ITS | Encounter Summary ---
Author Organization [employer] [facility] Address [address] [place] [address] 7 [place] [address] Care Team Providers Care Mold Maintenance Technician Name Role Phone Gerry Echavarria MD Primary Care Provide r Reason for Visit * Reason Comments Med Refill Encounter Details Date Type Department Care Team ([facility] st Contact Info) Description 04/04/2023 Refill [facility] MEDICINE 230 [place], [place] [phone] Mala Williamson, ANP 230 [place] [address] Diarrhea, unspecified type; Irritable bowel syndrome, unspecified [...] [facility] MEDICINE [address] [place] [address] Geryr Echavarria MD 230 [place] [address] documented as of this encounter Goals Goal [...] documented as of this encounter Care Teams Mold Maintenance Technician Relationship Specialty Start Date End Date Gerry Echavarria MD [address] [place] [address] PCP - General Internal Medicine 07/26/14 Theron New Cloud DeveloperTelesales Agent 01/08/24 [facility] 09/28/24 02/12/25 [facility] 12/28/24 documented as of this encounter
--- OUTSIDE RECORDS SUMMARY | 2025-02-16 16:53 | XMS_ITS | Encounter Summary ---
Author Organization [employer] Address 75 [facility] 7t [place] [address] Care Team Providers Care Animal Science Professor Name Role Phone Gerry Echavarria MD Primary Care Provide r Reason for Visit * Reason Comments Med Refill Encounter Details Date Type Department Care Team ([facility] st Contact Info) Description 03/24/2024 Refill [facility] MEDICINE 230 [place] [address] Name, MD Wai 230 [place] [address] Seasonal allergies Social History Tobacco Use Types [...] Description 04/18/2025 11:15 AM EDT Office Visit [facility] MEDICINE 230 [place], [place] [phone] Gerry Echavarria MD 230 [place] [address] documented as of this encounter Goals Goal [...] documented as of this encounter Care Teams Animal Science Professor Relationship Specialty Start Date End Date Gerry Echavarria MD [address] [place] [address] PCP - General Internal Medicine 07/26/14 Theron New Wildlife Refuge SpecialistDistribution Manager 01/08/24 [facility] 09/28/24 02/12/25 [facility] 12/28/24 documented as of this encounter
--- OUTSIDE RECORDS SUMMARY | 2025-02-16 16:53 | XMS_ITS | Encounter Summary ---
Author Organization [employer] Address [address] [place] [address] 7 [place] [address] Care Team Providers Care Ground Defence Officer Name Role Phone Gerry Echavarria MD Primary Care Provide r Reason for Visit * Reason Onset Date Comments Med Refill 11/23/2024 Encounter Details Date Type Department Care Team ([facility] st Contact Info) Description 11/23/2024 Telephone [facility] 230 [place], [place] [phone] Gerry Echavarria MD 230 [place] [address] Med Refill Social History Tobacco Use Types [...] : FreeStyle lancets To be sent to: [facility]/pharmacy #[id number] documented in this encounter Plan of Treatment Upcoming Encounters Date Type Department Care Team (Late st Contact Info) Description 04/18/2025 11:15 AM EDT Office Visit [facility] 230 [place] [address] Gerry Echavarria MD 230 [place], [place] [phone] documented as of this encounter Goals Goal [...] documented as of this encounter Care Teams Ground Defence Officer Relationship Specialty Start Date End Date Gerry Echavarria MD [address] [place] [address] PCP - General Internal Medicine 07/26/14 Theron New Tanning Solution MakerSecond Language Tutor 01/08/24 [facility] 09/28/24 02/12/25 [facility] 12/28/24 documented as of this encounter
--- OUTSIDE RECORDS SUMMARY | 2025-02-16 16:53 | XMS_ITS | Encounter Summary ---
Author Organization [employer] [facility] Address [address] [place] [address] 7 [place] [address] Care Team Providers Care Video Game Programmer Name Role Phone Gerry Echavarria MD Primary Care Provide r Reason for Visit * Reason Onset Date Comments triage 12/26/2022 Encounter Details Date Type Department Care Team ([facility] st Contact Info) Description 12/26/2022 Telephone [facility] 230 [place], [place] [phone] Gerry Echavarria MD 230 [place] [address] triage Social History Tobacco Use Types Packs/Day [...] accepted this outcome Please contact pt at [phone] documented in this encounter Plan of Treatment Upcoming Encounters Date Type Department Care Team (Late st Contact Info) Description 04/18/2025 11:15 AM EDT Office Visit [facility] [address] [facility] [place] [address] Gerry Echavarria MD 230 [place] [address] documented as of this encounter Goals Goal [...] on filedocumented in this encounter Care Teams Video Game Programmer Relationship Specialty Start Date End Date Gerry Echavarria MD 230 [place] [address] PCP - General Internal Medicine 07/26/14 Theron New Switch TenderCable Splicer Assistant 01/08/24 [facility] 09/28/24 02/12/25 [facility] 12/28/24 documented as of this encounter
--- OUTSIDE RECORDS SUMMARY | 2025-02-16 16:53 | XMS_ITS | Encounter Summary ---
Author Organization [employer] Address [address] [facility] 7t [place] [address] Care Team Providers Care Health And Physical Education Teacher Name Role Phone Gerry Echavarria MD Primary Care Provide r Reason for Visit * Reason Comments Med Refill Encounter Details Date Type Department Care Team ([facility] st Contact Info) Description 09/22/2023 Refill [facility] 230 [place], [place] [phone] Mala Williamson, ANP 230 [place] [address] Diarrhea, unspecified type; Irritable bowel syndrome, unspecified [...] Description 04/18/2025 11:15 AM EDT Office Visit [facility] [address] [place] [address] Gerry Echavarria MD 230 [place] [address] documented as of this encounter Goals Goal [...] documented as of this encounter Care Teams Health And Physical Education Teacher Relationship Specialty Start Date End Date Gerry Echavarria MD [address] [place] [address] PCP - General Internal Medicine 07/26/14 Theron New Esol Teacher AssistantSwitch Engineer 01/08/24 [facility] 09/28/24 02/12/25 [facility] 12/28/24 documented as of this encounter
--- OUTSIDE RECORDS SUMMARY | 2025-02-16 16:53 | XMS_ITS | Encounter Summary ---
Author Organization [facility] Address [address] [place] [address] 7t [place] [address] Care Team Providers Care Analysis Intern Name Role Phone Gerry Echavarria MD Primary Care Provide r Encounter Details Date Type Department Care Team (Late Contact Info) Description 04/13/2023 Abstract [facility] 230 [place], [place] [phone] Gerry Echavarria MD 230 [place] [address] Social History Tobacco Use Types Packs/Day Years [...] 04/18/2025 11:15 AM EDT Office Visit [facility] [address] [facility] [place] [address] Gerry Echavarria MD [address] [facility] [place] [address] documented as of this encounter Goals Goal [...] documented as of this encounter Care Teams Analysis Intern Relationship Specialty Start Date End Date Gerry Echavarria MD [address] [facility] [place] [address] PCP - General Internal Medicine 07/26/14 Theron New Therapy AideClub Director 01/08/24 [facility] 09/28/24 02/12/25 [facility] 12/28/24 documented as of this encounter
--- OUTSIDE RECORDS SUMMARY | 2025-02-16 16:53 | XMS_ITS | Encounter Summary ---
Author Organization [facility] Address [address] [place] [address] 7 [place] [address] Care Team Providers Care Director Financial Analysis Name Role Phone Gerry Echavarria MD Primary Care Provide r Reason for Visit * Reason Onset Date Comments Med Refill 12/30/2022 Encounter Details Date Type Department Care Team ([facility] st Contact Info) Description 12/30/2022 Telephone [facility] 230 [place], [place] [phone] Gerry Echavarria MD 230 [place] [address] Med Refill Social History Tobacco Use Types [...] of being on meclizine in [employer] or [employer] * Telephone Encounter - Evelio Guevara - 12/30/2022 1:02 PM EST Tc from pt requesting a Script for Meclazine that helps pt with her ongoing lightheadedness. Please contact pt at [phone] documented in this encounter Plan of Treatment Upcoming Encounters Date Type Department Care Team (Late st Contact Info) Description 04/18/2025 11:15 AM EDT Office Visit [facility] [address] [place] [address] Gerry Echavarria MD 230 [place] [address] documented as of this encounter Goals Goal Patient Goal Type Associated Problems Recent Progress Patient-Stated? Author Blood Pressure < 140/90 Blood Pressure Essential hypertension 108/78(2024 12:27 PM EDT) No Anegl Emmanuel, Roney Note: BP at goal every [...] giddiness documented in this encounter Care Teams Director Financial Analysis Relationship Specialty Start Date End Date Gerry Echavarria MD 230 [place] [address] PCP - General Internal Medicine 07/26/14 Theron New Airplane RefuelerGrey Roll Man 01/08/24 [facility] 09/28/24 02/12/25 [facility] 12/28/24 documented as of this encounter
--- OUTSIDE RECORDS SUMMARY | 2025-02-16 16:53 | XMS_ITS | Encounter Summary ---
Author Organization [employer] Address [address] [facility] 7t [place] [address] Care Team Providers Care Director Of Acquisition Marketing Name Role Phone Gerry Echavarria MD Primary Care Provide r Reason for Visit * Reason Comments Med Refill Encounter Details Date Type Department Care Team ([facility] st Contact Info) Description 09/20/[address] [facility] 230 [place], [place] [phone] Tracey Leyva MD 230 [place], [place] [phone] Social History Tobacco Use Types Packs/Day Years [...] AM EDT Office Visit [facility] 230 [place], [place] [phone] Gerry Echavarria MD 230 [place] [address] documented as of this encounter Goals Goal [...] as of this encounter Care Teams Director Of Acquisition Marketing Relationship Specialty Start Date End Date Gerry Echavarria MD 230 [place] [address] PCP - General Internal Medicine 07/26/14 Theron New Taper/FinisherInternal Grinder 01/08/24 [facility] 09/28/24 02/12/25 [facility] 12/28/24 documented as of this encounter
--- OUTSIDE RECORDS SUMMARY | 2025-02-16 16:53 | XMS_ITS | Encounter Summary ---
Author Organization [employer] [facility] Address [address] [facility] 7t [place] [address] Care Team Providers Care Shot Man Name Role Phone Gerry Echavarria MD Primary Care Provide r Reason for Visit * Reason Onset Date Comments Nurse Triage 12/14/2023 Encounter Details Date Type Department Care Team ([facility] st Contact Info) Description 12/14/2023 Telephone [facility] 230 [place], [place] [phone] Gerry Echavarria MD 230 [place] [address] Nurse Triage Social History Tobacco Use Types [...] given number to free telehealth service via [facility] [phone]. Pt to call them to see if [...] cough,fever) (Exceptions: Already seen by doctor or [employer]ARY [employer] DEAN/PA and no new or worsening symptoms.) * [...] accepted this outcome Please contact pt @ [phone] Macedonian Pt advices feels her chest a little tight. Came out positive for COVID on 12/14/2023 documented in this encounter Plan of Treatment Upcoming Encounters Date Type Department Care Team (Late st Contact Info) Description 04/18/2025 11:15 AM EDT Office Visit [facility] [address] [place] [address] Gerry Echavarria MD 230 [place] [address] documented as of this encounter Goals Goal [...] documented as of this encounter Care Teams Shot Man Relationship Specialty Start Date End Date Gerry Echavarria MD 230 [place] [address] PCP - General Internal Medicine 07/26/14 Theron New Front Of House ManagerTitle Department Manager 01/08/24 [facility] 09/28/24 02/12/25 [facility] 12/28/24 documented as of this encounter
== END 2025-02-16 13:50 | disposition home or self-care (01) ==
LOC: HO.US 13:49
PROVIDERS: PCP Internal Medicine; Visit Provider Nurse Practitioner Primary Care
DX: N83.201 Unspecified ovarian cyst, right side (principal)
CPT/HCPCS: 76830; 76856

== ENCOUNTER → 2025-02-16 13:51 | Outpatient (BNV) | payer MEDICAID, SELFPAY | PROVIDERS: PCP Internal Medicine; Visit Provider Radiology Diagnostic Radiology | DX: N83.291 Other ovarian cyst, right side (principal) | CPT/HCPCS: 76830; 76856 ==

== ENCOUNTER 2025-03-08 09:58 | Outpatient (AMB) | payer MEDICAID, SELFPAY ==
--- NOTE | 2025-03-08 10:05 | A.OFFVIS_ITS ---
Intake Visit Reasons: kidney stones Intake Note: Patient is present for KIDNEY STONES Urology Medication:TAMSULOSIN Antibiotic AllergyPENICILLINS Blood Thinner:NONE Digital Editor Required: No Allergies penicillin G [PENICILLIN G] Allergy (Severe, Verified 03/08/25 10:06) ANAPHYLAXIS shrimp Allergy (Severe, Verified 03/08/25 10:06) Anaphylaxis Penicillins [PCN] Allergy (Verified 03/08/25 10:06) Unknown HPI Comments Details: Julia is a Romansh-speaking female. She is a patient of . She is seen for the following urologic conditions - nephrolithiasis Medical translation provided by qualified development manager Discussed original finding small punctate stone left side This has passed No family history No prior occurrence Recommend 64 oz water per day with lemon 12 month follow-up renal ultrasound [facility] Medical History (Updated 03/08/25 @ 10:29 by Bari Baltazar MD) Fibromyalgia Epidermal cyst Pes cavus of both feet Allergies Headache GERD (gastroesophageal reflux disease) Surgical History History of removal of cyst (~06/27/24) History of shoulder surgery History of tubal ligation Hx of tonsillectomy Family History Mother Arthritis Father Diabetes Social History Household Members: Significant Other Are you a primary care mgr to a significant other at home: No Do you presently have visiting nurse or other home services: No Alcohol intake: former Patient Tobacco Use Status: Former Tobacco user Current occupational status: employed and unemployed Review of Systems Const Denies chills and Denies fever(s) Card Reports no additional complaints and Denies syncope Resp Denies cough GI Denies abdominal pain and Denies heartburn Reports as per HPI and Denies change in libido Neuro Denies syncope Psych Denies change in libido Endo Denies change in libido Physical Exam Const General: cooperative, healthy appearing, comfortable and no acute distress Orientation/consciousness: patient oriented x3 HEENT Face and sinus: Yes normal facial exam Mouth: moist mucous membranes Neck Neck: Yes normal visual inspection, Yes full ROM and Yes trachea midline Chest Chest palpation & inspection: normal inspection of the chest Resp Effort & Inspection: normal respiratory effort, able to speak in complete sent ences and no respiratory distress GI Inspection: Yes normal to inspection Back/Spine/Pelvis Cervical Spine: normal cervical lordosis Thoracic/Lumbar Spine: thoracic and lumbar spine normal to inspection Skin General skin exam: no rashes or lesions noted Neuro General: patient oriented x3, gait normal, tone normal and moves all extremities Extrem General: Yes normal to inspection and Yes capillary refill normal Assessment & Plan Assessment & Plan (1) Nephrolithiasis: Code(s): N20.0 - Calculus of kidney Category: Medical Plan Twelve month follow-up Orders: Orders US renal BI 12 Months N20.0 - Calculus of kidney Patient Instructions: This note is constructed using voice recognition software. While every effort has been made to ensure accuracy managing consultant clinical professor errors may have been included. Imaging studies, laboratory and physical exam results were discussed and reviewed in detail. No major barriers to patient understanding were identified. An opportunity to ask questions regarding the treatment plan was provided. All questions were answered. The patient expressed understanding and agreement with the above treatment plan. The patient is aware they should contact our office by phone for worsening of their current condition or the appearance of new urologic symptoms. Compliance is encouraged with any medications and followup testing that is ordered. It is a privilege to participate in the urologic care of your patient. If you have any questions or concerns regarding treatment for the above conditions, or other urologic issues, please do not hesitate to contact me. The office telephone contact is [phone]. Sincerely, Dr Bari Baltazar MD, [facility] - Urology Compassionate Specialist Care for the Genitourinary System Coding Level of Care Code New Pt Level 3 (30803) Diagnoses Nephrolithiasis N20.0
--- OUTSIDE RECORDS SUMMARY | 2025-03-08 11:04 | XMS_ITS | Encounter Summary ---
Author Organization [employer] Address [address] [facility] 7t [place] [address] Care Team Providers Care Cleater Name Role Phone Gerry Echavarria MD Primary Care Provide r Reason for Visit * Reason Onset Date Comments Nurse Triage 12/14/2023 Encounter Details Date Type Department Care Team ([facility] st Contact Info) Description 12/14/2023 Telephone [facility] 230 [place], [place] [phone] Gerry Echavarria MD 230 [place] [address] Nurse Triage Social History Tobacco Use Types [...] given number to free telehealth service via [employer] [facility] [phone]. Pt to call them to see if [...] cough,fever) (Exceptions: Already seen by doctor or NEMATOLOGIST/PA and no new or worsening symptoms.) * [...] become worse * Telephone Encounter - Evelio Aguayo Guevara - 12/14/2023 1:10 PM EST Symptom: COVID-19 Suspected Outcome: Schedule an urgent appointment (within 1 hour) or talk to a nurse or provider soon Reason: Any trouble breathing through the mouth The caller accepted this outcome Please contact pt @ [phone] [place] Pt advices feels her chest a little tight. Came out positive for COVID on 12/14/2023 documented in this encounter Plan of Treatment Upcoming Encounters Date Type Department Care Team (Late st Contact Info) Description 04/18/2025 11:15 AM EDT Office Visit [facility] 230 [place] [address] Gerry Echavarria MD 230 [place] [address] documented as of this encounter Goals Goal Patient Goal Type Associated Problems Recent Progress Patient-Stated? Author Blood Pressure < 140/90 Blood Pressure Essential hypertension 119/70(2024 1:09 PM EDT) No Angel Emmanuel, Roney Note: [...] documented as of this encounter Care Teams Cleater Relationship Specialty Start Date End Date Gerry Echavarria MD 230 [place] [address] PCP - General Internal Medicine 07/26/14 Theron New Track Grinder OperatorClient Experience Administrator 01/08/24 [facility] 09/28/24 02/12/25 [facility] 12/28/24 documented as of this encounter
--- OUTSIDE RECORDS SUMMARY | 2025-03-08 11:04 | XMS_ITS | Encounter Summary ---
Author Organization [employer] Address [address] [facility] [address] [facility] [address] 7t [place] [address] Care Team Providers Care Check Grader Name Role Phone Gerry Echavarria MD Primary Care Provide r Encounter Details Date Type Department Care Team ([facility] st Contact Info) Description 10/06/2024 Telephone [facility] 230 [place], [place] [phone] Gerry Echavarria MD 230 [place], [place] [phone] Social History Tobacco Use Types Packs/Day Years [...] Description 04/18/2025 11:15 AM EDT Office Visit [facility] 230 [place] [address] Gerry Echavarria MD 230 [place] [address] documented as of this encounter Goals Goal [...] documented as of this encounter Care Teams Check Grader Relationship Specialty Start Date End Date Gerry Echavarria MD 230 [place] [address] PCP - General Internal Medicine 07/26/14 Theron New Pattern DeveloperDie Finisher Forging 01/08/24 [facility] 09/28/24 02/12/25 [facility] 12/28/24 documented as of this encounter
--- OUTSIDE RECORDS SUMMARY | 2025-03-08 11:04 | XMS_ITS | Encounter Summary ---
Author Organization [employer] Address [address] [facility] [address] 7t [place] [address] Care Team Providers Care Brush Machine Setter Name Role Phone Gerry Echavarria MD Primary Care Provide r Reason for Visit * Reason Comments Med Refill Encounter Details Date Type Department Care Team ([facility] st Contact Info) Description 02/28/2025 Refill [facility] [address] [place] [phone] Gerry Echavarria MD 230 [place], [place] [phone] Polyarthralgia Social History Tobacco Use Types Packs/Day [...] Description 04/18/2025 11:15 AM EDT Office Visit [facility] 230 [place] [address] Gerry Echavarria MD 230 [place] [address] documented as of this encounter Goals Goal [...] documented as of this encounter Care Teams Brush Machine Setter Relationship Specialty Start Date End Date Gerry Echavarria MD 230 [place] [address] PCP - General Internal Medicine 07/26/14 Theron New Roll PluggerAutomobile Painter 01/08/24 [facility] 12/28/24 documented as of this encounter
--- OUTSIDE RECORDS SUMMARY | 2025-03-08 11:04 | XMS_ITS | Encounter Summary ---
Author Organization [employer] Address [address] [facility] [address] [facility] [address] 7t [place] [address] Care Team Providers Care Campaign Management Specialist Name Role Phone Gerry Echavarria MD Primary Care Provide r Reason for Visit * Reason Comments Med Refill Encounter Details Date Type Department Care Team ([facility] st Contact Info) Description 08/08/2023 Refill [facility] 230 [place], [place] [phone] Mala Williamson, ANP [address] [place] [address] Vertigo; Diarrhea, unspecified type; Irritable bowel syndrome, [...] Description 04/18/2025 11:15 AM EDT Office Visit [facility] 230 [place], [place] [phone] Gerry Echavarria MD [address] [place], [place] [phone] documented as of this encounter Goals Goal [...] documented as of this encounter Care Teams Campaign Management Specialist Relationship Specialty Start Date End Date Gerry Echavarria MD [address] [place] [address] PCP - General Internal Medicine 07/26/14 Theron New Upholstery Auto TrimmerSales Representatives 01/08/24 [facility] 09/28/24 02/12/25 [facility] 12/28/24 documented as of this encounter
--- OUTSIDE RECORDS SUMMARY | 2025-03-08 11:04 | XMS_ITS | Encounter Summary ---
Author Organization [employer] Address [address] [facility] [address] [facility] [address] 7t [place] [address] Care Team Providers Care Refractory Technician Name Role Phone Gerry Echavarria MD Primary Care Provide r Reason for Visit * Reason Comments Med Refill Encounter Details Date Type Department Care Team ([facility] st Contact Info) Description 08/18/2023 Refill [facility] 230 [place], [place] [phone] Krystina Haji MD 230 [place], [place] [phone] Mixed anxiety and depressive disorder; Chronic migraine [...] 04/18/2025 11:15 AM EDT Office Visit [facility] 230 [place] [address] Gerry Echavarria MD 230 [place] [address] documented as of this encounter Goals Goal [...] documented as of this encounter Care Teams Refractory Technician Relationship Specialty Start Date End Date Gerry Echavarria MD [address] [place] [address] PCP - General Internal Medicine 07/26/14 Theron New Senior Telecommunications ConsultantSales Service Route Manager 01/08/24 [facility] 09/28/24 02/12/25 [facility] 12/28/24 documented as of this encounter
--- OUTSIDE RECORDS SUMMARY | 2025-03-08 11:04 | XMS_ITS | Clinical Summary ---
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 [id number] ? : 1975 ?Acct:[id number] ? Age/Sex: 49 / F ?ADM Date: 03/20/25 ? Loc: HO.ED ? Attending Dr: ? Ordering Physician: Kriss Askew ?? Date of Service: 01/19/25 ?? Procedure(s): CT abdomen pelvis wo IV con ?? Accession Number(s): [id number] ? cc: Gerry Lopez MD; Kriss Askew ? Report Number: ?? [id number]: Total DLP = ??734.00 mGy-cm ?? EXAMINATION: [...] ??Edwin Ronquillo MD ??01/19/2025 02:45 PM EDT ? Dictated By: ?Edwin Ronquillo MD ? Signed By: ?<Electronically signed by Edwin Ronquillo MD in OV> ?01/19/25 1445 ? DD/ 1413 ? TD/TT: 01/19/25 1420 ? 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 Cierra, Namrata - 01/19/[address] [place] [address] [address] Scan Report Signed Patient: Julia SmithMR#: [id number] : 1975Acct:[id number] Age/Sex: 49 / FADM Date: 01/19/25 Loc: HO.ED Attending Dr: Ordering Physician: Kriss Askew Date of Service: 01/19/25 Procedure(s): CT abdomen pelvis wo IV con Accession Number(s): [id number] cc: Gerry Lopez MD; Kriss Askew Report Number: [id number]: Total DLP = 734.00 mGy-cm EXAMINATION: CT [...] Edwin Ronquillo MD 01/19/2025 02:45 PM EDT RP Dictated By: Edwin Ronquillo MD Signed By: <Electronically signed by Edwin Ronquillo MD in OV> 01/19/25 1445 DD/ 1413 TD/TT: 01/19/25 1420 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 Magnesium 2.0 1.6 - 2.6 mg/dL [facility] 01/19/2025 12:1 0 PM EDT 01/19/2025 12:13 PM EDT Generic External Data Provider LAB BLOOD ORDERAB LES Final Result [facility] [address] [place] [phone] * (ABNORMAL) Basic Metabolic Panel (01/19/2025 12:10 PM EDT) Only the most recent of2 resultswithin the time period is included. Sodium 140 135 - 145 mmol/L [facility] Potassium 3.6 3.3 - 5.1 mmol/L [facility] Chloride 106 96 - 108 mmol/L [facility] Carbon Dioxide 26 22 - 29 mmol/L [facility] Anion Gap 12 12 - 20 [facility] Urea Nitrogen (BUN) 18(H) 9 - 16 mg/dL [facility] Creatinine, Serum 0.85 0.5 - 1.4 mg/dL [facility] Creatinine Clr Calc Pharmacy 91.1 [facility] Comment:Provided height and weight: 165.1 cm,92.9 kg.eGFR (calculated from the MDRD study equation) and eCrCl(calculated from the Cockcroft-Gault equation) are based ondifferent parameters and may not yield comparable results.If eCrCl result is absurd, please check patient'sheight/weight. Estimated Glomerular Filt Rate >60 [facility] Comment:Chronic Kidney Disea se: Estimated GFR < 60 mL/min/1.74b0Yebqye Kidney Disease: Estimated GFR < 15 mL/min/1.73m2 Glucose 177(H) 60 - 115 mg/dL [facility] Calcium 9.5 8.4 - 10.2 mg/dL [facility] 01/19/2025 12:1 0 PM EDT 01/19/2025 12:13 PM EDT us Generic External Data Provider LAB BLOOD ORDERAB LES Final Result Performing Organization Address [facility] Co de Phone Number [facility] [address] [place] [phone] * TSH with Reflex to Free T4 (01/19/2025 10:23 AM EDT) Only the most recent of2 resultswithin the time period is included. TSH reflex Free T4 3.67 0.32 - 4.0 uIU/mL [facility] Blood Venous blood specimen / Unknown 01/19/2025 10:23 AM EDT 01/19/2025 11:21 AM EDT us Gerry Whitehead MD LAB BLOOD ORDERABLES Final Result Performing Organization Address City/[facility]/ZIP Co de Phone Number [facility] [address] [place] [phone] * Albumin, Random Urine W/Creatinine (01/19/2025 10:23 AM EDT) Creatinine, Urine 258.90 mg/dL [facility] Microalbumin Urine 64.0 mg/L [facility] Microalbum Creatinine Ratio Ur 24.7 <30 ug/mg cr [facility] Comment:Albumin/Creatinine R atio Reference Ranges: Normal: < 30 ug/mg creatinine Microalbuminuria: 30 - 300 ug/mg creatinineClinical Albuminuria: > 300 ug/mg creatinine Urine (Urine, Random) 01/19/2025 10:23 AM EDT 01/19/2025 11:59 AM EDT Gerry Whitehead MD LAB URINE ORDERABLES Final Result Performing Organization Address [facility] Co de Phone Number [facility] [address] [place] [phone] * (ABNORMAL) POCT urinalysis dipstick manually [...] EDT 01/17/2025 6:33 PM EDT Comment:UACC Narrative [facility] - 01/19/2025 11:46 AM EDT Lactobacillus species Quant 10,000 to 50,000 cfu/mL Specimen Source: Urine clean catch Krystina Haji MD LAB MICROBIOLOGY - GENERAL ORDER BERNA Edited Result - Final Performing Organization Address [facility]/ZIP Co de Phone Number [facility] [address] [place] [phone] * D Dimer High Sensitivity (01/12/2025 3:45 PM EDT) D Dimer High Sensitivity 165 NG/ML [facility] Comment:D-DIMER HS REFERENCE RANGENote: Our [...] Provider LAB BLOOD ORDERAB LES Final Result [facility] [address] [place] [address] [phone] * SARS-CoV-2 RNA, Influenza A/B, and RSV RNA, Ql NAAT (01/12/2025 12:10 PM EDT) Pathologist [facility] [place] Influenza A PCR NEGATIVE Negative [facility] Influenza B PCR NEGATIVE Negative [facility] Resp Syncy Virus RNA Qual PCR NEGATIVE Negative [facility] SARS COV2 PCR NEGATIVE Negative [facility] Comment:All test results mus t [...] use by authorized laboratories.Testing performed on the [employer] GeneXpert utilizingreal-time RT-PCR.All SARS CoV2 and positive influenza A/B results arereported to [facility]. 01/12/2025 12:1 0 PM EDT 01/12/2025 12:18 PM EDT us Generic External Data Provider LAB MICROBIOLOGY - GENERAL ORDERABLES Final Result [facility] [address] [place] [phone] * XR Chest 2 Views (01/12/2025 11:56 AM EDT) Anatomical Region Laterality Modality Chest Radiographic Angy ging 01/12/2025 11:5 6 AM EDT Narrative 01/12/2025 12:47 PM EDT ? [facility] ?[address] ?[place] [address] ?XRay Report ? Signed ? Patient: Julia Smith ?MR#: ?? [id number] ? : 1975 ?Acct:[id number] ? Age/Sex: 49 / F ?ADM Date: 01/12/25 ? Loc: HO.ED ? Attending Dr: ? Ordering Physician: Kriss Askew ?? Date of Service: 01/12/25 ?? Procedure(s): XR chest 2V ?? Accession Number(s): [id number] ? cc: Aubrie Trinidad MD; Kriss Askew [...] signed by Edwin Ronquillo MD in OV> ?01/12/ 1245 ? DD/DT: 01/12/ 1156 ? TD/TT: 01/12/ 1239 ? 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 Cierra, Image - 01/12/[address] [address] XRay Report Signed Patient: Julia SmithMR#: [id number] : 1975Acct:[id number] Age/Sex: 49 / FADM Date: 01/12/25 Loc: HO.ED Attending Dr: Ordering Physician: Kriss Askew Date of Service: 01/12/25 Procedure(s): XR chest 2V Accession Number(s): [id number] cc: Aubrie Trinidad MD; Kriss Askew EXAMINATION: [...] 01/12/25 1245 DD/ 1156 TD/TT: 01/12/25 1239 [employer] Football Coach: [facility] External Provider IMG XR PROCEDURES Edited [...] Media Lot # [id number] Lot# Expiration Date [id number] Blood Capillary blood specimen / Unknown 01/10/2025 9:56 AM EDT eGrry Whiteehad MD POINT OF CARE TEST EN TER/EDIT ORDERABLES Final Result * (ABNORMAL) Lipid Panel, Standard (08/18/2024 11:31 AM EDT) Triglycerides 107 <150 mg/dL [facility] Comment:Desirable Triglyceri de: less than 150 mg/dLBorderline High Triglyceride 150-199 mg/dLHigh Triglyceride: 200-499 mg/dLVery High Triglyceride: greater than or equal to 5OO mg/dL Cholesterol 208(H) <200 mg/dL [facility] Comment:Desirable Cholestero l: less than 200 mg/dLBorderline High Cholesterol: 200-239 mg/dLHigh Cholesterol: greater than 239 mg/dL LDL Cholesterol Calculated 115(H) <100 mg/dL [facility] Comment:Desirable LDL: less than 100 mg/dLNear Optimal/Above Optimal LDL: 110- 129 mg/dLBorderline High LDL: 130-159 mg/dLHigh LDL: 160-189 mg/dLVery High LDL: greater than or equal to 190 mg/dL HDL Cholesterol 72 >40 mg/dL [facility] Comment:Desirable HDL: great er than 40 mg/dL Note: This HDL assay may give artificially low results in patients with liver disease. Blood Venous blood specimen / Unknown 08/18/2024 11:31 AM EDT 08/18/2024 1:14 PM EDT Gerry Whitehead MD LAB BLOOD ORDERABLES Final Result [facility] [address] [place] [phone] * BI Mammogram Screening Tomosynthesis Bilateral (06/09/2024 12:35 PM EDT) Anatomical Region Laterality Modality Breast Bilateral Mammography 06/09/2024 12:3 5 PM EDT Narrative 07/07/2024 11:45 AM EDT ? [facility] ? [address] ?[place] [address] ? Mammography Report ? Signed ? Patient: Julia Smith ?MR#: ?? [id number] ? : 1975 ?Acct:[id number] ? Age/Sex: 49 / F ?ADM Date: 06/09/24 ? Loc: HO.MAMMO ? Attending Dr: Aubrie Trinidad MD ? Ordering Physician: Aubrie Trinidad MD ?Results: 1 ?? Negative ? Date of Service: 06/09/24 ?Follow Up: 1 Year From Orig ?? inal Mammogram ? Procedure(s): MM tomosynthesis screening BI ?? Accession Number(s): [id number] ? cc: Aubrie Trinidad MD ? EXAMINATION: [...] DD/ 1235 ? TD/TT: 06/09/24 1250 ? 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 [address] Mammography Report Signed Patient: Julia Smith#: [id number] : 1975Acct:[id number] Age/Sex: 49 / FADM Date: 06/09/24 Loc: MAMMO Attending Dr: Aubrie Trinidad MD Ordering Physician: Aubrie Trinidad MDResults: 1 Negative Date of Service: 06/09/24Follow Up: 1 Year From Orig inal Mammogram Procedure(s): MM tomosynthesis screening BI Accession Number(s): [id number] cc: Aubrie Trinidad MD EXAMINATION: MM SCREENING [...] 07/07/24 1142 DD/ 1235 TD/TT: 06/09/24 1250 [employer] Football Coach: Aubrie Trinidad MD IMG BI PROCEDURES Edited Re sult - Final * Hm Colonoscopy (02/08/2024) Colonoscopy Normal Normal Historical Provider [facility] Final Result * (ABNORMAL) Cologuard?? colon cancer screening (12/18/2023 11:00 AM EST) Cologuard Result Positive( A) Negative 12/27/2023 11:00 AM EST [facility] (CLIA #:[id number]) Comment: POSITIVE TEST RESULT. A positive Cologuard [...] screened with both Cologuard and colonoscopy. (Jesenia Tomlinson et al, N Engl J Med 2014;370(14):8888-2966.) Cologuard may produce a false negative or false positive result (no colorectal cancer or precancerous polyp present at colonoscopy follow up). A negative Cologuard test result does not guarantee the absence of CRC or advanced adenoma (pre-cancer). The current Cologuard screening interval is every 3 years. ([employer] Cancer Society and U.S. Multi-Society Task Force). Cologuard performance data in a 10,000 patient pivotal study using colonoscopy as the reference method can be accessed at the following location: www.[employer]/results. Additional description of the Cologuard test process, warnings and precautions can be found at www.[employer].com. Stool specimen (specimen) 12/18/2023 11:00 AM EST 12/19/2023 1:02 PM EST us Gerry Whitehead MD LAB MOLECULAR DIAGNOS TICS ORDERABLES Final Result [facility] (CLIA #:[id number]) [place] [address] [place] [address], * THINPREP PAP (04/17/2021 10:22 AM EDT) Clinical Information: None given [facility] COMMENT SEE COMMENT FOUNDATI ON [...] historic and ?? current clinical information. ?? Mobile Device Engineer : SEE COMMENT [facility] Comment: GSG, CT(ASCP) CT screening location: [address] ??[address] Interpretation/R esult: Negative for intraepithelial lesion or malignancy. [facility] LMP: 03/21/2021 [facility] Prev. BX: NONE GIVEN FOUNDATIO N LAB SYSTEM Prev. PAP: NIL 03/2015 HPV - FO [facility] LAB SYSTEM SOURCE: Cervix [facility] Statement Of Adequacy: SEE COMMENT [facility] Comment: Satisfactory for evaluation. Endocervical/transformation zone component present. 04/17/2021 10:2 2 AM EDT Wendie DONG LAB PATHOLOGY ORDERABLES Final Result [facility] [address] * HPV mRNA E6/E7 (04/17/2021 10:22 AM EDT) HPV nRNA E6/E7 Not Detected Not Detected [facility] Comment: Methodology: Residential Driver-Mediated Amplification This assay detects E6/E7 viral messenger RNA (mRNA) from 14 high-risk HPV types (16,18,31,33,35,39,45,51,52,56,58,59,66,68). ? The analytical performance characteristics of this assay have been determined by [employer]. The modifications have not been cleared or approved by the FDA. This assay has been validated pursuant to the CLIA regulations and is used for clinical purposes. ?? For additional information, please refer to http://education.Pager.com/faq/XVL376v0 (This link if provided for information/ educational purposes only.) 04/17/2021 10:2 2 AM EDT us Wendie Sandoval CNM LAB BLOOD ORDERABLES Judy l Result [facility] [address] from Last 3 Months or Most Recently Relevant to Health Maintenance Insurance [facility] C3 Care Teams Oncology Pharmacist Relationship Specialty Start Date End Date Gerry Echavarria MD [address] [place] [phone] PCP - General Internal Medicine 07/26/14 Theron [employer] [place] RooferPharmacy Stock Clerk 01/08/24 [employer] 12/28/24
--- OUTSIDE RECORDS SUMMARY | 2025-03-08 11:04 | XMS_ITS | Encounter Summary ---
Author Organization [employer] Address [address] [facility] 7t [place] [address] Care Team Providers Care Digital Campaign Manager Name Role Phone Gerry Echavarria MD Primary Care Provide r Reason for Visit * Reason Onset Date Comments Med Refill 10/11/2024 Encounter Details Date Type Department Care Team ([facility] st Contact Info) Description 10/11/2024 Telephone [facility] [address] [place], [place] [phone] Gerry Echavarria MD [address] [place] [address] Med Refill Social History Tobacco Use Types [...] 10 MG tablet To be sent to: [facility]/pharmacy #[id number] [place] [address] - [address] [place] [address] documented in this encounter Plan of Treatment Upcoming Encounters Date Type Department Care Team (Late st Contact Info) Description 04/18/2025 11:15 AM EDT Office Visit [facility] [address] [place] [address] Gerry Echavarria MD [address] [place] [address] documented as of this encounter Goals Goal Patient Goal Type Associated Problems Recent Progress Patient-Stated? Author Blood Pressure < 140/90 Blood Pressure Essential hypertension 119/70(2024 1:09 PM EDT) No Angel Emmanuel, PharmD Note: BP at goal every other [...] documented as of this encounter Care Teams Digital Campaign Manager Relationship Specialty Start Date End Date Gerry Echavarria MD [address] [place] [phone] PCP - General Internal Medicine 07/26/14 Theron [place] [facility] ManHospital Educator 01/08/24 [facility] 09/28/24 02/12/25 [facility] 12/28/24 documented as of this encounter
--- OUTSIDE RECORDS SUMMARY | 2025-03-08 11:04 | XMS_ITS | Encounter Summary ---
Author Organization [employer] Address [address] [facility] 7t [place] [address] Care Team Providers Care Instructor Dramatic Arts Name Role Phone Gerry Echavarria MD Primary Care Provide r Reason for Visit * Reason Onset Date Comments triage 12/26/2022 Encounter Details Date Type Department Care Team ([facility] st Contact Info) Description 12/26/2022 Telephone [facility] [address] [place], [place] [phone] Gerry Echavarria MD [address] [place] [address] triage Social History Tobacco Use Types Packs/Day [...] Miscellaneous Notes * Telephone Encounter - Evelio Guevara - 12/26/2022 12:02 PM EST Symptoms: Dizziness, Earache, Headache Outcome: Schedule an urgent appointment (within 1 hour) or talk to a nurse or provider soon Reason: Severe pain now The caller accepted this outcome Please contact pt at [phone] documented in this encounter Plan of Treatment Upcoming Encounters Date Type Department Care Team (Late st Contact Info) Description 04/18/2025 11:15 AM EDT Office Visit [facility] [address] [facility] [place] [address] Gerry Echavarria MD [address] [place] [address] documented as of this encounter Goals Goal [...] on filedocumented in this encounter Care Teams Instructor Dramatic Arts Relationship Specialty Start Date End Date Gerry Echavarria MD [address] [facility] [place] [address] PCP - General Internal Medicine 07/26/14 Theron New Material ProcessorAdult Basic Education Manager 01/08/24 [facility] 09/28/24 02/12/25 [facility] 12/28/24 documented as of this encounter
--- OUTSIDE RECORDS SUMMARY | 2025-03-08 11:04 | XMS_ITS | Encounter Summary ---
Author Organization [employer] Address [address] [facility] [address] [place] [address] Care Team Providers Care Bladder Cleaner Name Role Phone Gerry Echavarria MD Primary Care Provide r Reason for Visit * Reason Comments Med Refill Encounter Details Date Type Department Care Team ([facility] st Contact Info) Description 08/18/2023 Refill [facility] [address] [place], [place] [phone] Wendie Sandoval, [facility] [address] [place] [address] Social History Tobacco Use Types Packs/Day Years [...] Description 04/18/2025 11:15 AM EDT Office Visit [facility] [address] [place] [address] Gerry Echavarria MD [address] [place], [place] [phone] documented as of this encounter Goals Goal [...] documented as of this encounter Care Teams Bladder Cleaner Relationship Specialty Start Date End Date Gerry Echavarria MD [address] [place] [address] PCP - General Internal Medicine 07/26/14 Theron New Nuclear Medicine SpecialistSalesperson Wigs 01/08/24 [facility] 09/28/24 02/12/25 [facility] 12/28/24 documented as of this encounter
--- OUTSIDE RECORDS SUMMARY | 2025-03-08 11:04 | XMS_ITS | Encounter Summary ---
Author Organization [employer] Address [address] [place] [address] Care Team Providers Care It Specialist Name Role Phone Gerry Echavarria MD Primary Care Provide r Reason for Visit * Reason Comments Med Refill Encounter Details Date Type Department Care Team ([facility] st Contact Info) Description 08/25/2023 Refill [facility] [address] [place], [place] [phone] Wendie Sandoval, [facility] [address] [place] [address] Social History Tobacco Use Types Packs/Day Years [...] [facility] [address] [place] [address] Gerry Echavarria MD [address] [place], [place] [phone] documented as of this encounter Goals Goal [...] documented as of this encounter Care Teams It Specialist Relationship Specialty Start Date End Date Gerry Echavarria MD [address] [place] [address] PCP - General Internal Medicine 07/26/14 Theron [employer] SupervisorBlade Operator 01/08/24 [facility] 09/28/24 02/12/25 [facility] 12/28/24 documented as of this encounter
--- OUTSIDE RECORDS SUMMARY | 2025-03-08 11:04 | XMS_ITS | Encounter Summary ---
Author Organization [employer] Address [address] [facility] [address] 7t [place] [address] Care Team Providers Care Coremaker Experimental Name Role Phone Gerry Echavarria MD Primary Care Provide r Reason for Visit * Reason Comments Med Refill Encounter Details Date Type Department Care Team ([facility] Contact Info) Description 09/20/2023 Refill [facility] [address] [place] [address] Amalia Ta MD 505 [place] [address] Social History Tobacco Use Types Packs/Day Years [...] Description 04/18/2025 11:15 AM EDT Office Visit [facility] 230 [place] [address] Gerry Echavarria MD 230 [place], [place] [phone] documented as of this encounter Goals Goal [...] documented as of this encounter Care Teams Coremaker Experimental Relationship Specialty Start Date End Date Gerry Echavarria MD 230 [place] [address] PCP - General Internal Medicine 07/26/14 Theron New Engineering Research ManagerSnow Groomer 01/08/24 [facility] 09/28/24 02/12/25 [facility] 12/28/24 documented as of this encounter
--- OUTSIDE RECORDS SUMMARY | 2025-03-08 11:04 | XMS_ITS | Encounter Summary ---
Author Organization [employer] Address [address] [facility] 7t [place] [address] Care Team Providers Care Worship Leader Name Role Phone Gerry Echavarria MD Primary Care Provide r Reason for Visit * Reason Comments Med Refill Encounter Details Date Type Department Care Team ([facility] st Contact Info) Description 09/10/2023 Refill [facility] 230 [place], [place] [phone] Wendie Sandoval, [facility] [address] [place] [address] Social History Tobacco Use Types Packs/Day Years [...] Description 04/18/2025 11:15 AM EDT Office Visit [facility] [address] [place] [address] Gerry Echavarria MD 230 [place], [place] [phone] documented as of this encounter Goals Goal [...] documented as of this encounter Care Teams Worship Leader Relationship Specialty Start Date End Date Gerry Echavarria MD 230 [place] [address] PCP - General Internal Medicine 07/26/14 Theron New HaircutterSystem Admin 01/08/24 [facility] 09/28/24 02/12/25 [facility] 12/28/24 documented as of this encounter
--- OUTSIDE RECORDS SUMMARY | 2025-03-08 11:04 | XMS_ITS | Encounter Summary ---
Author Organization [employer] Address [address] [facility] [address] [address] 7t [place] [address] Care Team Providers Care Area Director Of Home Health Sales Name Role Phone Gerry Echavarria MD Primary Care Provide r Reason for Visit * Reason Comments Med Refill Encounter Details Date Type Department Care Team ([facility] st Contact Info) Description 08/18/2023 Refill [facility] [address] [address] [place], [place] COVID-19 Social History Tobacco [...] Description 04/18/2025 11:15 AM EDT Office Visit [facility] 230 [place], [place] [phone] Gerry Echavarria MD 230 [place], [place] [phone] documented as of this encounter Goals Goal Patient Goal Type Associated Problems Recent Progress Patient-Stated? Author Blood Pressure < 140/90 Blood Pressure Essential hypertension 119/70(2024 1:09 PM EDT) No Angel Emmanuel, PharmMamta Note: BP at goal every other day; encouraged lifestyle changes to promote BP control Follow the DASH diet Diet Essential hypertension On track( 024 4:06 PM EDT) No Angel Emmanuel, PharmD Note: Look for low-sodium products Increase physical activity Exercise Essential hypertension On track( 024 4:06 PM EDT) No Anegl Emmanuel, PharmD Note: inactive, advised some amount of cardio can help with heart health documented as of this encounter Visit Diagnoses Diagnosis COVID-19 documented in this encounter Additional Health Concerns Assessment Noted Time PHQ-9 Depression Total Score: 11 023 2:03 PM EDT documented as of this encounter Care Teams Area Director Of Home Health Sales Relationship Specialty Start Date End Date Gerry Echavarria MD 230 [place] [address] PCP - General Internal Medicine 07/26/14 Theron New Clam Shovel OperatorFeatures Reporter 01/08/24 [facility] 09/28/24 02/12/25 [facility] 12/28/24 documented as of this encounter
--- OUTSIDE RECORDS SUMMARY | 2025-03-08 11:04 | XMS_ITS | Encounter Summary ---
Author Organization [employer] Address [address] [facility] [address] [address] 7t [place] [address] Care Team Providers Care Carpet Winder Name Role Phone Gerry Echavarria MD Primary Care Provide r Reason for Visit * Reason Comments Med Refill Encounter Details Date Type Department Care Team ([facility] st Contact Info) Description 09/22/2023 Refill [facility] 230 [place], [place] [phone] Mala Williamson, ANP 230 [place] [address] Diarrhea, unspecified type; Irritable bowel syndrome, unspecified [...] Description 04/18/2025 11:15 AM EDT Office Visit [facility] 230 [place] [address] Gerry Echavarria MD 230 [place] [address] documented as of this encounter Goals Goal [...] documented as of this encounter Care Teams Carpet Winder Relationship Specialty Start Date End Date Gerry Echavarria MD [address] [place] [address] PCP - General Internal Medicine 07/26/14 Theron New Head Men'S Tennis CoachManager Rehab 01/08/24 [facility] 09/28/24 02/12/25 [facility] 12/28/24 documented as of this encounter
--- OUTSIDE RECORDS SUMMARY | 2025-03-08 11:04 | XMS_ITS | Encounter Summary ---
Author Organization [employer] Address [address] [facility] 7t [place] [address] Care Team Providers Care Green Chain Marker Name Role Phone Gerry Echavarria MD Primary Care Provide r Reason for Visit * Reason Comments Med Refill Encounter Details Date Type Department Care Team ([facility] st Contact Info) Description 09/20/2023 Refill [facility] MED[facility] 230 [place], [place] [phone] Tracey Leyva MD 230 [place], [place] [phone] Social History Tobacco Use Types Packs/Day Years [...] 04/18/2025 11:15 AM EDT Office Visit [facility] MED[facility] 230 [place] [address] Gerry Echavarria MD [address] [place], [place] [phone] documented as of this encounter Goals Goal [...] as of this encounter Care Teams Green Chain Marker Relationship Specialty Start Date End Date Gerry Echavarria MD 230 [place] [address] PCP - General Internal Medicine 07/26/14 Theron New Motion Picture ProjectionistWheel Truer 01/08/24 [facility] 09/28/24 02/12/25 [facility] 12/28/24 documented as of this encounter
--- OUTSIDE RECORDS SUMMARY | 2025-03-08 11:04 | XMS_ITS | Encounter Summary ---
Author Organization [employer] Address [address] [facility] 7t [place] [address] Care Team Providers Care Process Mold Technician Name Role Phone Gerry Echavarria MD Primary Care Provide r Reason for Visit * Reason Onset Date Comments Med Refill 11/23/2024 Encounter Details Date Type Department Care Team ([facility] st Contact Info) Description 11/23/2024 Telephone [facility] MED[facility] 230 [place], [place] [phone] Gerry Echavarria MD 230 [place] [address] Med Refill Social History Tobacco Use Types [...] : FreeStyle lancets To be sent to: [facility]/pharmacy #[id number] documented in this encounter Plan of Treatment Upcoming Encounters Date Type Department Care Team (Late st Contact Info) Description 04/18/2025 11:15 AM EDT Office Visit [facility] 230 [place], [place] [phone] Gerry Echavarria MD 230 [place] [address] documented as of this encounter Goals Goal [...] documented as of this encounter Care Teams Process Mold Technician Relationship Specialty Start Date End Date Gerry Echavarria MD [address] [place] [address] PCP - General Internal Medicine 07/26/14 Theron New Kitchen StewardOtolaryngologist 01/08/24 [facility] 09/28/24 02/12/25 [facility] 12/28/24 documented as of this encounter
--- OUTSIDE RECORDS SUMMARY | 2025-03-08 11:04 | XMS_ITS | Encounter Summary ---
Author Organization [employer] Address [address] [facility] [address] 7t [place] [address] Care Team Providers Care Electrical Prospecting Observer Name Role Phone Gerry Echavarria MD Primary Care Provide r Reason for Visit * Reason Comments Med Refill Encounter Details Date Type Department Care Team ([facility] st Contact Info) Description 03/07/2025 Refill [facility] [address] [place] [phone] Gerry Echavarria MD 230 [place], [place] [phone] Mixed anxiety and depressive disorder; Fibromyalgia Social History Tobacco Use Types Packs/Day [...] 04/18/2025 11:15 AM EDT Office Visit [facility] 230 [place] [address] Gerry Echavarria MD 230 [place] [address] documented as of this encounter Goals Goal [...] Mixed anxiety and depressive disorder Dysthymic disorder Fibromyalgia Unspecified myalgia and myositis documented in this encounter Additional Health Concerns Assessment Noted Time PHQ-9 Depression Total Score: 11 11/01/ 024 11:14 AM EST documented as of this encounter Care Teams Electrical Prospecting Observer Relationship Specialty Start Date End Date Gerry Echavarria MD 230 [place] [address] PCP - General Internal Medicine 07/26/14 Theron New Roll PickerElectrician Yard 01/08/24 [facility] 12/28/24 documented as of this encounter
--- OUTSIDE RECORDS SUMMARY | 2025-03-08 11:04 | XMS_ITS | Encounter Summary ---
Author Organization [employer] Address [address] [facility] [address] 7t [place] [address] Care Team Providers Care Control Operator Name Role Phone Gerry Echavarria MD Primary Care Provide r Reason for Visit * Reason Comments Med Refill Encounter Details Date Type Department Care Team ([facility] st Contact Info) Description 09/20/[address] [facility] MED[facility]INE 230 [place], [place] [phone] Mala Williamson, ANP 230 [place] [address] Diarrhea, unspecified type; Irritable bowel syndrome, unspecified [...] 04/18/2025 11:15 AM EDT Office Visit [facility] MED[facility] [address] [place] [address] Gerry Echavarria MD 230 [place] [address] documented as of this encounter Goals Goal [...] documented as of this encounter Care Teams Control Operator Relationship Specialty Start Date End Date Gerry Echavarria MD [address] [place] [address] PCP - General Internal Medicine 07/26/14 Theron New Pulp House SupervisorSlice Plug Cutter Operator Helper 01/08/24 [facility] 09/28/24 02/12/25 [facility] 12/28/24 documented as of this encounter
--- OUTSIDE RECORDS SUMMARY | 2025-03-08 11:04 | XMS_ITS | Encounter Summary ---
Author Organization [employer] Address [address] [facility] 7t [place] [address] Care Team Providers Care Community Recreation Coordinator Name Role Phone Gerry Echavarria MD Primary Care Provide r Reason for Visit * Reason Comments Med Refill Encounter Details Date Type Department Care Team ([facility] st Contact Info) Description 09/10/2023 Refill [facility] 230 [place], [place] [phone] Gerry Echavarria MD 230 [place], [place] [phone] Social History Tobacco Use Types Packs/Day Years [...] 04/18/2025 11:15 AM EDT Office Visit [facility] MED[facility] 230 [place], [place] [phone] Gerry Echavarria MD 230 [place] [address] documented as of this encounter Goals Goal [...] documented as of this encounter Care Teams Community Recreation Coordinator Relationship Specialty Start Date End Date Gerry Echavarria MD 230 [place] [address] PCP - General Internal Medicine 07/26/14 Theron New Basket SorterWard Aide 01/08/24 [facility] 09/28/24 02/12/25 [facility] 12/28/24 documented as of this encounter
--- OUTSIDE RECORDS SUMMARY | 2025-03-08 11:04 | XMS_ITS | Clinical Summary ---
Author Organization [facility] Address 175 [place] [address] Phone Care Team Providers Care Recruitment Internship Name Role Phone Gerry Lopez MD Primary [...] PM EDT Office Visit Orthopedic Surgery - [address] [phone] Juan Frey, DPM Synovitis and tenosynovitis of left ankle and foot (Primary Dx); Disorder of ligament of foot, left; Primary osteoarthritis of both feet from Last 3 Months Social History Tobacco [...] PM EDT Office Visit Orthopedic Surgery - [place] [address] [phone] Juan Frey, POORNIMA [address] [address] Health Maintenance Due Date Last Done Comments Breast Cancer Screening 1976 Diabetes: Annual Foot Exam 1986 Diabetes: Annual Retina Eye Exam 1986 HIV Screening 10/01/2022 Hepatitis C Screening 10/01/2022 Social Influencers of Health Screening 10/01/2022 COVID-19 Vaccine (2023-2 5 season) 2024 11/19/2021, 04/28/2021, 03/28/2021 Diabetes: [...] tendon or ligament (01/17/2025 1:00 PM EDT) Narrative Juan Frey DPM - 01/17/2025 1:00 PM EDT Juan Frey DPM ? 01/17/2025 ??7:03 PM Injection tendon or ligament Indications: pain Details: 25 G needle Medications: 0.5 mL lidocaine (PF) 1 %; 20 mg triamcinolone acetonide 40 mg/mL Informed Consent: ??Site: ??Foot ligament tendon Result [facility] Juan Frey DPM IN CLINIC/BEDSIDE ORDERAB LES Final Result * Annual BMP Blood Test (04/09/2024) [facility] Annual BMP Blood Test abstracted Result [facility] Provider HEALTH MAINTENANCE Final Result * FIT-DNA (Cologuard) (12/18/2023) [facility] Colorectal Cancer Screening: FIT-DNA (Cologuard) no interpretation , abstracted Result [facility] Provider HEALTH MAINTENANCE Final Result * Lipid panel (06/03/2023) [facility] Triglycerides 0 mg/dL Comment:no interpretation Cholesterol 0 mg/dL Comment:no interpretation HDL 0 mg/dL Comment:no interpretation LDL Cholesterol 0 mg/dL Comment:no interpretation Blood Venous blood specimen / Unknown Result [facility] Provider LAB BLOOD ORDERABLES Judy l Result * Hemoglobin A1c (05/21/2022) [facility] Hemoglobin A1C 0.0 % Comment:no interpretation Blood Venous blood specimen / Unknown Result [facility] Provider LAB BLOOD ORDERABLES Judy l Result * Cervical Cancer Screening: HPV (04/17/2021) [facility] Cervical Cancer Screening: HPV no interpretation , abstracted Result [facility] Provider HEALTH MAINTENANCE Final Result from Last 3 Months or Most Recently Relevant to Health Maintenance Insurance MEDICAID - [place] Care Teams Recruitment Internship Relationship Specialty Start Date End Date Gerry Lopez MD [address] [place] [address] [place] [phone] PCP - General 07/29/22
--- OUTSIDE RECORDS SUMMARY | 2025-03-08 11:04 | XMS_ITS | Encounter Summary ---
Author Organization [employer] Address [address] [facility] [address] 7t [place] [address] Care Team Providers Care Media Professional Name Role Phone Gerry Echavarria MD Primary Care Provide r Reason for Visit * Reason Comments Med Refill Encounter Details Date Type Department Care Team ([facility] st Contact Info) Description 09/20/2023 Refill [facility] [place] 230 [place], [place] [phone] [facility] 230 [place] [address] Folliculitis Social History Tobacco Use Types Packs/Day [...] 11:15 AM EDT Office Visit [facility] MEDICINE 230 [place] [address] Gerry Echavarria MD 230 [place] [address] documented as of this encounter Goals Goal [...] documented as of this encounter Care Teams Media Professional Relationship Specialty Start Date End Date Gerry Echavarria MD [address] [place] [address] PCP - General Internal Medicine 07/26/14 Theron New Library Science ProfessorPaleology Professor 01/08/24 [facility] 09/28/24 02/12/25 [facility] 12/28/24 documented as of this encounter
--- OUTSIDE RECORDS SUMMARY | 2025-03-08 11:04 | XMS_ITS | Encounter Summary ---
Author Organization [employer] Address [address] [facility] [address] 7t [place] [address] Care Team Providers Care Laundry Housekeeper Name Role Phone Gerry Echavarria MD Primary Care Provide r Reason for Visit * Reason Comments Med Refill Encounter Details Date Type Department Care Team ([facility] st Contact Info) Description 08/08/2023 Refill [facility] 230 [place], [place] [phone] Name, MD Wai 230 [place] [address] Mixed anxiety and depressive disorder Social History [...] 04/18/2025 11:15 AM EDT Office Visit [facility] [address] [place] [address] Gerry Echavarria MD 230 [place] [address] documented as of this encounter Goals Goal [...] documented as of this encounter Care Teams Laundry Housekeeper Relationship Specialty Start Date End Date Gerry Echavarria MD 230 [place] [address] PCP - General Internal Medicine 07/26/14 Theron New Sr Technical Sales ConsultantElectrical Continuity Inspector 01/08/24 [facility] 09/28/24 02/12/25 [facility] 12/28/24 documented as of this encounter
--- OUTSIDE RECORDS SUMMARY | 2025-03-08 11:04 | XMS_ITS | Encounter Summary ---
Author Organization [employer] Address [address] [facility] [address] 7t [place] [address] Care Team Providers Care Bedspread Cutter Name Role Phone Gerry Echavarria MD Primary Care Provide r Reason for Visit * Reason Comments Med Refill Encounter Details Date Type Department Care Team ([facility] st Contact Info) Description 11/13/2023 Refill [facility] 230 [place], [place] [phone] Krystina Haji MD 230 [place], [place] [phone] Chronic migraine without aura without status migrainosus, [...] Description 04/18/2025 11:15 AM EDT Office Visit [facility] [address] [place] [address] Gerry Echavarria MD [address] [place] [address] documented as of this encounter Goals Goal [...] documented as of this encounter Care Teams Bedspread Cutter Relationship Specialty Start Date End Date Gerry Echavarria MD [address] [place] [address] PCP - General Internal Medicine 07/26/14 Theron New Parking Lot SupervisorManager Billing 01/08/24 [facility] 09/28/24 02/12/25 [facility] 12/28/24 documented as of this encounter
--- OUTSIDE RECORDS SUMMARY | 2025-03-08 11:04 | XMS_ITS | Encounter Summary ---
Author Organization [employer] Address [address] [facility] 7t [place] [address] Care Team Providers Care Machine Bender Name Role Phone Gerry Echavarria MD Primary Care Provide r Reason for Visit * Reason Onset Date Comments Med Refill 12/30/2022 Encounter Details Date Type Department Care Team ([facility] st Contact Info) Description 12/30/2022 Telephone [facility] MED[facility]INE 230 [place], [place] [phone] Gerry Echavarria MD 230 [place] [address] Med Refill Social History Tobacco Use Types [...] no hx of being on meclizine in [place] or [place] * Telephone Encounter - Eveilo Guevara - 12/30/2022 1:02 PM EST Tc from pt requesting a Script for Meclazine that helps pt with her ongoing lightheadedness. Please contact pt at [phone] documented in this encounter Plan of Treatment Upcoming Encounters Date Type Department Care Team (Late st Contact Info) Description 04/18/2025 11:15 AM EDT Office Visit [facility] MED[facility]INE 230 [place], [place] [phone] Gerry Echavarria MD 230 [place], [place] [phone] documented as of this encounter Goals Goal [...] giddiness documented in this encounter Care Teams Machine Bender Relationship Specialty Start Date End Date Gerry Echavarria MD 230 [place], [place] [phone] PCP - General Internal Medicine 07/26/14 Theron New Dependency CounselorGarbage Collection Supervisor 01/08/24 [facility] 09/28/24 02/12/25 [facility] 12/28/24 documented as of this encounter
--- OUTSIDE RECORDS SUMMARY | 2025-03-08 11:04 | XMS_ITS | Encounter Summary ---
Author Organization [employer] Address [address] [facility] 7t [place] [address] Care Team Providers Care Dough Mixer Operator Name Role Phone Gerry Echavarria MD Primary Care Provide r Reason for Visit * Reason Comments Med Refill Encounter Details Date Type Department Care Team ([facility] st Contact Info) Description 09/22/2023 Refill [facility] MED[facility]INE 230 [place], [place] [phone] Tracey Leyva MD 230 [place], [place] [phone] Social History Tobacco Use Types Packs/Day Years [...] Visit [facility] MEDICINE [address] [place] [address] Gerry Echavarria MD 230 [place], [place] [phone] documented as of this encounter Goals Goal [...] documented as of this encounter Care Teams Dough Mixer Operator Relationship Specialty Start Date End Date Gerry Echavarria MD [address] [place] [address] PCP - General Internal Medicine 07/26/14 Theron New Impact Retail Service MerchandiserLawn Care Professional 01/08/24 [facility] 09/28/24 02/12/25 [facility] 12/28/24 documented as of this encounter
--- OUTSIDE RECORDS SUMMARY | 2025-03-08 11:04 | XMS_ITS | Encounter Summary ---
Author Organization [employer] Address [address] [facility] [address] 7t [place] [address] Care Team Providers Care Trimmer Machine Operator Name Role Phone Gerry Echavarria MD Primary Care Provide r Reason for Visit * Reason Onset Date Comments Order 09/18/2023 Encounter Details Date Type Department Care Team ([facility] st Contact Info) Description 09/18/2023 Telephone [facility] MEDICINE 230 [place], [place] [phone] Gerry Echavarria MD 230 [place] [address] Order Social History Tobacco Use Types Packs/Day [...] and video instructions. Please contact pt at [phone] [place] Speaker TC placed with [employer] ID # [id number]. Pt answered the phone and hung up on embossing press operator molded goods, called placed again and a message was left in Northern Irish for her to contact the [facility]. I do not see anything in [...] and video instructions. Please contact pt at [phone] Northern Irish Speaker documented in this encounter Plan of Treatment Upcoming Encounters Date Type Department Care Team ([facility] st Contact Info) Description 04/18/2025 11:15 AM EDT Office Visit [facility] MEDICINE [address] [place] [address] Gerry Echavarria MD 230 [place] [address] documented as of this encounter Goals Goal [...] documented as of this encounter Care Teams Trimmer Machine Operator Relationship Specialty Start Date End Date Gerry Echavarria MD 230 [place] [address] PCP - General Internal Medicine 07/26/14 Theron New Seed Laboratory TechnicianSchool Bus Mechanic 01/08/24 [facility] 09/28/24 02/12/25 [facility] 12/28/24 documented as of this encounter
--- OUTSIDE RECORDS SUMMARY | 2025-03-08 11:04 | XMS_ITS ---
Author Organization [facility] Address [address] [place] [address] Care Team Providers Care Structural Rigger Name Role Phone Shantell Whitehead MD, Gerry [...] Problem Status W/U Status Risk Notes Problem [id number] H. pylori infection (A04.8) Active confirmed Encounters Encounter Location Date Provider Diagnosis [facility] [address] [place] [phone] 02/24/2024 Wesley Olivo Jr H. pylori infection [...] Provider Name:Wesley ferrer Jr, 04/10/2025 10:40:00 AM, [address] [place] [address], [address], [place], [address], Progress Notes * CHERELLE FLOERZDOB: 6 (48 yo F)Acc No.[id number]:02/24/2024 Patient:?CHERELLE FLOREZ :1975???Age:48 Y???Sex:Female Address:[address] [place] [address] [place], [address] * Refills? Start Omeprazole Capsule Delayed Release, [...] true * Date:? Generated for Ada thompson/Tiff/eTransmitting on:?03/08/2025 11:04 AM EDT
--- OUTSIDE RECORDS SUMMARY | 2025-03-08 11:04 | XMS_ITS | Encounter Summary ---
Author Organization [employer] Address [address] [facility] 7t [place] [address] Care Team Providers Care Lieutenant Shift Supervisor Name Role Phone Gerry Echavarria MD Primary Care Provide r Reason for Visit * Reason Comments Med Refill Encounter Details Date Type Department Care Team ([facility] st Contact Info) Description 03/07/2025 Refill [facility] 230 [place], [place] [phone] Mala Williamson, ANP 230 [place] [address] Diarrhea, unspecified type; Irritable bowel syndrome, unspecified type; Upper abdominal pain Social History Tobacco Use Types Packs/Day Years [...] Description 04/18/2025 11:15 AM EDT Office Visit [facility] 230 [place] [address] Gerry Echavarria MD 230 [place] [address] documented as of this encounter Goals Goal [...] unspecified type Irritable bowel syndrome, unspecified type Upper abdominal pain documented in this encounter Additional Health Concerns Assessment Noted Time PHQ-9 Depression Total Score: 11 11/01/ 024 11:14 AM EST documented as of this encounter Care Teams Lieutenant Shift Supervisor Relationship Specialty Start Date End Date Gerry Echavarria MD [address] [place] [address] PCP - General Internal Medicine 07/26/14 [facility] RnProduction Aide 01/08/24 [facility] 12/28/24 documented as of this encounter
--- OUTSIDE RECORDS SUMMARY | 2025-03-08 11:05 | XMS_ITS | Patient Health Record ---
Author Organization [facility] Address [address] [place] [address] Care Team Providers Care Spring Up Supervisor Name Role Phone Shantell Whitehead MD, Gerry Primary Care Provide r Unavailable Wesley Gibson Jr Unavailable Allergies Allergen (clinical drug ingredient) Drug/Non Drug Allergy documented on EMR Reaction Allergy Type Onset Date Status shrimp allergenic extract Shrimp (Diagnostic) Unknown Drug Allergy Active Penicillin Unknown Drug Allergy Active Reason For Referral Referring Provider First Name Gerry Referring Provider Last Name Shantell sellers Referring Provider Speciality Internal M edicine Referred Organization [facility] Referred Provider Wesley Gibson Jr Referred Address [address] [facility],[place], [place],[address],[place] Referred Provider Specialty Gastroentero logy General Notes Zuleyka Thornton 2024 01:30:07 PM >REQUESTED A [place] REFERRAL FROM [facility] FOR VISIT WITH DR GIBSON ON [phone] Referral Priority Routine Medications Medication SIG (Take, [...] Problem Status W/U Status Risk Notes Problem [id number] Abnormal finding s in stool (R19.5) Active confirmed Problem 059019721 H. pylori infection (A04.8) Active confirmed Problem 947991769 Gastroesophageal reflux disease, unspecified whether esophagitis present (K21.9) Active confirmed Problem Gastroesophageal reflux disease (292976892) Chronic GERD (K21.9) Active confirmed Plan Of Treatment Pending Test Test Name Order Date H PYLORI AG, STOOL 02/24/2024 Future Test Test Name Order Date UPPER GI ENDOSCOPY 05/02/2015 UPPER GI ENDOSCOPY 01/13/2024 COLONOSCOPY 01/13/2024 Next Appt Details Provider Name:Wesley ferrer , 04/10/2025 10:40:00 AM, [address] [place] [address], [address], [place], [address], Insurance Providers Payer Name Payer Address Payer Phone Subscriber Number Group Number Insured Name Patient Relationship to Insured Coverage Start Date Coverage End Date MEDICAID OF [facility] [address] [place] [address] [id number] CHERELLE FLOREZ Self - patient is the insured Medical (General) History Medical History History ICD Code esophageal reflux, EGD 05/16, no [place] s esophagus or H. pylori. Headaches Allergic rhinitis Insomnia Fibromyalgia Osteoarthritis Diabetes mellitus type 2 Surgical History Surgery Date(Month/Year) tonsillectomy tubal ligation
--- OUTSIDE RECORDS SUMMARY | 2025-03-08 11:05 | XMS_ITS | Encounter Summary ---
Author Organization [employer] Address [address] [facility] 7t [place] [address] Care Team Providers Care Gripper Installer Name Role Phone Gerry Echavarria MD Primary Care Provide r Encounter Details Date Type Department Care Team ([facility] Contact Info) Description 04/13/2023 Abstract [facility] 230 [place], [place] [phone] Gerry Echavarria MD 230 [place] [address] Social History Tobacco Use Types Packs/Day Years [...] Description 04/18/2025 11:15 AM EDT Office Visit [facility] [address] [place] [address] Gerry Echavarria MD [address] [place] [address] documented as of this encounter Goals Goal [...] documented as of this encounter Care Teams Gripper Installer Relationship Specialty Start Date End Date Gerry Echavarria MD [address] [place] [address] PCP - General Internal Medicine 07/26/14 [facility]on [employer] Web DeveloperAnchor Tacker 01/08/24 [facility] 09/28/24 02/12/25 [facility] 12/28/24 documented as of this encounter
--- OUTSIDE RECORDS SUMMARY | 2025-03-08 11:05 | XMS_ITS | Encounter Summary ---
Author Organization [employer] Address [address] [facility] 7t [place] [address] Care Team Providers Care Buffing Wheel Former Automatic Name Role Phone Gerry Echavarria MD Primary Care Provide r Reason for Referral * Consultation (Routine) - Authorized Specialty Diagnoses / Procedures Referred By Contsanket t Referred To Contact Urology Diagnoses Nephrolithiasis Krystina Haji MD [address] [place] [address] Phone: tel: fax: [facility] Referral ID Status Reason Start Date Expiration Date Visits Requested Visits Authorized [id number] Authorized Specialty Services Required 01/24/2025 01/24/2026 6 6 Encounter Details Date Type Department Care Team (Late st Contact Info) Description 01/21/2025 Orders Only [facility] [address] [place] [address] [phone] Krystina Haji MD [address] [place] [phone] Nephrolithiasis (Primary Dx) Social History Tobacco Use [...] 11:15 AM EDT Office Visit [facility] 230 [place] [address] Gerry Echavarria MD 230 [place] [address] Scheduled Referrals Name Type Priority Associated Diagnoses Orde r Schedule Referral to Urology Outpatient Referral Routine Nephrolithiasis Expected: 01/21/2025 (Approximate), Expires: 01/21/2026 documented as of this encounter Goals Goal Patient Goal Type Associated Problems Recent Progress Patient-Stated? Author Blood Pressure < 140/90 Blood Pressure Essential hypertension 119/70(2024 1:09 PM EDT) No Angle Emmanuel, Roney Note: BP at goal every [...] documented as of this encounter Care Teams Buffing Wheel Former Automatic Relationship Specialty Start Date End Date Gerry Echavarria MD [address] [place] [address] PCP - General Internal Medicine 07/26/14 Theron [employer] Eastern Philosophy ProfessorWet Machine Cutter 01/08/24 [facility] 09/28/24 02/12/25 [facility] 12/28/24 documented as of this encounter
--- OUTSIDE RECORDS SUMMARY | 2025-03-08 11:05 | XMS_ITS | Encounter Summary ---
Author Organization [employer] Address 75 [facility] 7t [place] [address] Care Team Providers Care Fabric Stretcher Name Role Phone Gerry Echavarria MD Primary Care Provide r Reason for Visit * Reason Comments Med Refill Encounter Details Date Type Department Care Team ([facility] st Contact Info) Description 03/24/2024 Refill [facility] 230 [place], [place] [phone] Name, MD Wai [address] [place] [address] Seasonal allergies Social History Tobacco Use Types [...] Visit [facility] [address] [place] [address] Gerry Echavarria MD 230 [place] [address] documented as of this encounter Goals Goal [...] documented as of this encounter Care Teams Fabric Stretcher Relationship Specialty Start Date End Date Gerry Echavarria MD 230 [place] [address] PCP - General Internal Medicine 07/26/14 Theron New Bus Driver SupervisorAssembler Brazer 01/08/24 [facility] 09/28/24 02/12/25 [facility] 12/28/24 documented as of this encounter
--- OUTSIDE RECORDS SUMMARY | 2025-03-08 11:05 | XMS_ITS | Encounter Summary ---
Author Organization [employer] Address [address] [facility] 7t [place] [address] Care Team Providers Care Manager Produce Name Role Phone Gerry Echavarria MD Primary Care Provide r Reason for Visit * Reason Onset Date Comments Med Refill 11/07/2024 Encounter Details Date Type Department Care Team (Late st Contact Info) Description 11/07/2024 Refill [facility] 230 [place], [place] [phone] Name, MD Wai 230 [place] [address] Fibromyalgia Social History Tobacco Use Types Packs/Day [...] AM EDT Office Visit [facility] 230 [place] [address] Gerry Echavarria MD 230 [place] [address] documented as of this encounter Goals Goal [...] as of this encounter Care Teams Manager Produce Relationship Specialty Start Date End Date Gerry Echavarria MD 230 [place] [address] PCP - General Internal Medicine 07/26/14 [facility] [place] Cutter MachineRug Sample Beveler 01/08/24 [facility] 09/28/24 02/12/25 [facility] 12/28/24 documented as of this encounter
--- OUTSIDE RECORDS SUMMARY | 2025-03-08 11:05 | XMS_ITS ---
Author Organization [facility] Address [address] [facility] [address] [place] [address] Care Team Providers Care Sharepoint Architect Name Role Phone Shantell Whitehead MD, Gerry [...] Active Encounters Encounter Location Date Provider Diagnosis [facility] [address] [place] [phone] 01/13/2024 Wesley Olivo Jr Plan Of Treatment [...] Provider Name:Wesley ferrer Jr, 04/10/2025 10:40:00 AM, [address] [place] [address], [address], [place], [address], Progress Notes * CHERELLE FLOREZDOB: 6 (48 yo F)Acc No.[id number]:01/13/2024 Patient:?CHERELLE FLOREZ :1975???Age:48 Y???Sex:Female Address:[address] [place] [address], [place] [address] * Refills? Start MiraLax (colon prep), 8.3 [...] true * Date:? Generated for Ada thompson/Tiff/Himanshuitting on:?03/08/2025 11:04 AM EDT
--- OUTSIDE RECORDS SUMMARY | 2025-03-08 11:05 | XMS_ITS | Encounter Summary ---
Author Organization [employer] Address 75 [facility] 7t [place] [address] Care Team Providers Care Professor Of Political Science Name Role Phone Gerry Echavarria MD Primary Care Provide r Reason for Visit * Reason Onset Date Comments Nurse Triage 04/06/2023 Encounter Details Date Type Department Care Team ([facility] st Contact Info) Description 04/06/2023 Telephone [facility] MED[facility] 230 [place], [place] [phone] Gerry Echavarria MD 230 [place] [address] Nurse Triage Social History Tobacco Use Types [...] 04/06/2023 4:58 PM EDT Triage call with [facility] Case Manager [place] [id number] Pt reports cough, sore throat, headache and [...] negative. Pt is advised to come to [facility] today to be seenand Pt agrees with [...] become worse * Telephone Encounter - Jess Rausch - 04/06/2023 4:41 PM EDT Symptoms: Sore Throat, Earache, Headache Outcome: Schedule an urgent appointment (within 4 hours) or talk to a nurse or provider soon Reason: Getting worse The caller accepted this outcome (St Helenian speaker) documented in this encounter Plan of Treatment Upcoming Encounters Date Type Department Care Team (Late st Contact Info) Description 04/18/2025 11:15 AM EDT Office Visit [facility] 230 [place], [place] [phone] Gerry Echavarria MD 230 [place], [place] [phone] documented as of this encounter Goals Goal [...] documented as of this encounter Care Teams Professor Of Political Science Relationship Specialty Start Date End Date Gerry Echavarria MD 230 [place], [place] [phone] PCP - General Internal Medicine 07/26/14 Theron New Straightener Gun PartsLoader Magazine Grinder 01/08/24 [facility] 09/28/24 02/12/25 [facility] 12/28/24 documented as of this encounter
--- OUTSIDE RECORDS SUMMARY | 2025-03-08 11:05 | XMS_ITS | Encounter Summary ---
Author Organization [employer] Address [address] [facility] 7t [place] [address] Care Team Providers Care Spice Fumigator Name Role Phone Gerry Echavarria MD Primary Care Provide r Reason for Visit * Reason Comments Med Refill Encounter Details Date Type Department Care Team ([facility] st Contact Info) Description 04/04/2023 Refill [facility] MED[facility]INE 230 [place], [place] [phone] Mala Williamson, ANP 230 [place] [address] Diarrhea, unspecified type; Irritable bowel syndrome, unspecified [...] Visit [facility] MED[facility]INE [address] [place] [address] Gerry Echavarria MD [address] [place] [address] documented as of this encounter Goals Goal [...] documented as of this encounter Care Teams Spice Fumigator Relationship Specialty Start Date End Date Gerry Echavarria MD [address] [place] [address] PCP - General Internal Medicine 07/26/14 Theron New [place] PlacerCorporate General Manager 01/08/24 [facility] 09/28/24 02/12/25 [facility] 12/28/24 documented as of this encounter
--- OUTSIDE RECORDS SUMMARY | 2025-03-08 11:05 | XMS_ITS ---
Author Organization [facility] Address [address] [facility] [address] [place] [address] Care Team Providers Care Casino Banker Name Role Phone Shantell Whitehead MD, Gerry Primary Care Provide r Itz Olivo Jr, Wesley Unavailable [phone] REASON FOR VISIT gerd,abn findings in stool Problems Problem Type SNOMED Code ICD Code Onset Dates Problem Status W/U Status Risk Notes Problem Gastroesophageal reflux disease (014146814) Chronic GERD (K21.9) Active confirmed Encounters Encounter Location Date Provider Diagnosis [facility] Outpatient [address] [place] [id number] 02/12/2024 Wesley Olivo Jr Abnormal findings in [...] Name:Wesley ferrer Jr, 04/10/2025 10:40:00 AM, [address], [address], [place], [address], Progress Notes * FLOREZCHERELLE BEANDOB: 6 (50 yo F)Acc No.[id number]:02/12/2024 EGD and COL/MAC Patient:?LEISA FLOREZARIS Provider:?Wesley Olivo MD :1975???Age:48 Y???Sex:Female D ate:02/12/2024 Address: [place], [place] Pcp:Gerry flores MD Subjective: * Chief Complaints: * ???1. Gerd,abn findings in s tool. * Medical History:? Objective: * Vitals:? Assessment: * Assessment: 1.?Abnormal findings in stoo l - R19.5 (Primary)???2.?Colon polyps - K63.5???3.?Chronic GERD - K21.9??? Plan: * Treatment: * Procedure Codes:?46280 LESIO N REMOVAL COLONOSCOPY, 93048 UPPER GI ENDOSCOPY, BIOPSY * * The named appointment provid er may or may not be the originator of this progress note, and it is not deemed complete until electronically signed by the appointment provider. Sign off status: Pending * Provider:?Wesley Olivo MD Date:?0 02/12/2024 Generated for Ada thompson/Tiff/eTransmitting on:?03/08/2025 11:05 AM EDT
== END 2025-03-08 10:33 | disposition home or self-care (01) ==
LOC: HO.HUSH 09:59
PROVIDERS: PCP Internal Medicine; Visit Provider Urology
DX: N20.0 Calculus of kidney (principal)
CPT/HCPCS: 99203

== ENCOUNTER → 2025-03-08 09:58 | Outpatient (BNVA) | payer MEDICAID, SELFPAY | PROVIDERS: PCP Internal Medicine; Visit Provider Urology | DX: N20.0 Calculus of kidney (principal) | CPT/HCPCS: 99202 ==

== ENCOUNTER 2025-03-09 | Outpatient (REF) | payer MEDICAID, SELFPAY ==
--- OUTSIDE RECORDS SUMMARY | 2025-05-01 13:08 | XMS_ITS | Patient Health Record ---
Author Organization [facility] Address [address] [place] [address] Care Team Providers Care Internal Medicine Veterinary Technician Name Role Phone Shantell Whitehead MD, [...] Provider Speciality Internal M edicine Referred Organization [facility] Referred Provider Wesley Gibson Jr Referred Address [address] [facility],[address],[place], [place],[address],[place] Referred Provider Specialty Gastroentero logy General Notes Zuleyka Thornton 2024 01:30:07 PM >REQUESTED A [place] REFERRAL FROM [facility] FOR VISIT WITH DR GIBSON ON [phone], Zuleyka Thornton 03/08/2025 03:18:36 PM >REQUSTED REFERRAL AGAIN Referral Priority Routine Medications Medication SIG (Take, Route, Frequency, Duration) Notes Start Date End Date Status Betamethasone Dipropionate 0.05 % PLEASE SEE ATTACHED FOR DETAILED DIRECTIONS External for 7 Active metroNIDAZOLE 500 MG [address] ee times a day for 14 days 02/24/2024 Active Celecoxib 100 MG TAKE [address] [facility] TWICE A DAY Oral for 30 Active Dicyclomine HCl 20 MG 1 tablet Orally 2- 4 times a day 05/02/2015 Active Omeprazole 20 MG 1 Orally Twice a day for 14 days 02/24/2024 Active Ferrous Gluconate 324 (38 Fe) MG TAKE 1 TABLET BY MOUTH WITH BREAKFAST Oral for 90 Active Clarithromycin 500 MG 1 tablet Orally Tw ice a day for 14 days 02/24/2024 Active Gabapentin 100 MG TAKE 2 CAPSULES BY M OUTH 3 TIMES A DAY Oral for 30 Active Fluticasone Propionate 50 MCG/ACT SPRAY 2 SPRAYS INTO EACH NOSTRIL EVERY DAY Nasal for 90 Active Diclofenac Sodium 1 % APPLY 4 G TOPICALL Y 2 TIMES DAILY. External for 30 Active FreeStyle Lite Test - USE 1 EACH BY DIRECTED ROUTE 2 TIMES EVERY DAY In Vitro for 25 Active Venlafaxine HCl ER 150 MG TAKE 1 CAPSULE BY MOUTH EVERY DAY IN THE MORNING Oral for 30 Active predniSONE 20 MG TAKE 1 TABLET BY ZOILA TH EVERY DAY Oral for 5 Active Acetaminophen ER 650 MG TAKE 1 TABLET BY MOUTH EVERY 8 HOURS IF NEEDED FOR MILD PAIN. DO NOT CRUSH, CHEW, OR SPLIT. Oral for 30 Active Lidocaine 5 % APPLY 1 PATCH EVERY DAY NEEDED FOR PAIN (MAY WEAR UP TO 12 HOURS), REMOVE FOR 12 HOURS External for 30 Active FreeStyle Lancets - USE 1 LANCET TO TEST BLOOD GLUCOSE 2 TIMES A DAY for 50 Active Baclofen 5 MG TAKE 1 TABLET BY ZOILA TH TWICE A DAY NEEDED FOR MUSCLE SPASMS Oral for 30 Active Ketoconazole 2 % APPLY TO SCALP TWICE A WEEK, LEAVE ON FOR 5 MIN, THEN RINSE. External for 30 Active clonazePAM 1 MG TAKE 1 AND 1/2 TABLE T BY MOUTH AT BEDTIME Oral for 30 Active Cetirizine HCl 10 MG TAKE 1 TABLET BY MO UTH EVERY DAY Oral for 90 Active busPIRone HCl 30 MG TAKE 1 TABLET BY ZOILA TH TWICE A DAY Oral for 90 Active Lisinopril 10 MG TAKE 1 TABLET BY ZOILA TH EVERY DAY Oral for 90 Active MiraLax (colon prep) 8.3 ounce ((238) grams mixed with Gatorade or Crystal Light orally begin at 5:00 p.m. the day before the procedure for 1 day 01/13/2024 Active Omeprazole 20 MG TAKE 1 CAPSULE BY MO UTH EVERY 12 HRS Oral for 15 Active Dulcolax (colon prep) 5 MG take at 3:00 p.m and 7:00p.m. Orally two tablets twice a day for one day for 1 day 01/13/2024 Active metFORMIN HCl ER 500 MG TAKE 2 TABLETS B Y MOUTH EVERY DAY WITH EVENING MEALS Oral for 90 Active Immunizations Vaccine Route Administration Date Status Comme nts Influenza Unknown 01/13/2024 Refused Problems Problem Type SNOMED Code ICD Code Onset Dates Problem Status W/U Status Risk Notes Problem 634197343 Abnormal finding s in stool (R19.5) Active confirmed Problem [id number] H. pylori infection (A04.8) Active confirmed Problem [id number] Gastroesophageal reflux disease, unspecified whether esophagitis present (K21.9) Active confirmed Problem Gastroesophageal reflux disease (844257704) Chronic GERD (K21.9) Active confirmed Vital Signs Temperature 98.5 degrees Fahrenheit 04/10/2025 Blood pressure diastolic 01 mm Hg 04/10/2025 Height 65.75 in 04/10/2025 Blood pressure systolic 001 mm Hg 04/10/2025 Weight 208.4 lbs 04/10/2025 BMI 33.89 kg/m2 04/10/2025 Encounters Encounter Location Date Provider Diagnosis [facility] [address] [place] [address] 04/10/2025 Wesley Gibson Jr Abnormal findings in stool R19.5 ; Gastroesophageal reflux disease, unspecified whether esophagitis present K21.9 and H. pylori infection A04.8 Assessments Encounter Date Diagnosis (ICD Code) Assessment Notes Treatment Notes Treatment Clinical Notes Section Notes 04/10/2025 Abnormal findings in stool (ICD-10 - R19.5) Currently, she is doing well. She will continue omeprazole 20 mg twice daily. If she feels well and wants to decrease this to once daily, that is fine. Follow-up will be in 12 months. She is up-to-date on colorectal cancer screening. 04/10/2025 Gastroesophageal reflux disease, unspecified whether esophagitis present (ICD-10 - K21.9) Currently, she is doing well. She will continue omeprazole 20 mg twice daily. If she feels well and wants to decrease this to once daily, that is fine. Follow-up will be in 12 months. She is up-to-date on colorectal cancer screening. 04/10/2025 H. pylori infection (ICD-10 - A04.8) Currently, she is doing well. She will continue omeprazole 20 mg twice daily. If she feels well and wants to decrease this to once daily, that is fine. Follow-up will be in 12 months. She is up-to-date on colorectal cancer screening. Plan Of Treatment Pending Test Test Name Order Date H PYLORI AG, STOOL 02/24/2024 Future Test Test Name Order Date UPPER GI ENDOSCOPY 05/02/2015 UPPER GI ENDOSCOPY 01/13/2024 COLONOSCOPY 01/13/2024 Insurance Providers Payer Name Payer Address Payer Phone Subscriber Number Group Number Insured Name Patient Relationship to Insured Coverage Start Date Coverage End Date [facility] [address] [place] [phone] [id number] CHERELLE FLOREZ Self - patient is the insured Medical (General) History Medical History History ICD Code Gastroesophageal reflux disease, EGD 02/01 4, H. pylori gastritis, treated Headaches Allergic rhinitis Insomnia Fibromyalgia Osteoarthritis Diabetes mellitus type 2 Colonoscopy 02/23, hyperplastic polyp, 10 -year follow-up Surgical History Surgery Date(Month/Year) tubal ligation tonsillectomy
--- OUTSIDE RECORDS SUMMARY | 2025-05-01 13:08 | XMS_ITS | Clinical Summary ---
Author Organization 175 [facility] Address [address] [place] [address] Phone Care Team Providers Care Slot Supervisor Name Role Phone Gerry Lopez MD Primary [...] PM EDT Office Visit Orthopedic Surgery - [address] [address] Juan Frey, DPM Tendinitis of [...] PM EDT Office Visit Orthopedic Surgery - [place] [address] [phone] Juan Frey, POORNIMA [address] [address] Health Maintenance Due Date Last Done Comments [...] Informed Consent: Site: Foot ligament tendon Result [facility] Juan Frey DPM IN CLINIC/BEDSIDE ORDERAB LES Final Result * Annual BMP Blood Test (04/09/2024) [facility] Annual BMP Blood Test abstracted Result [facility] Provider HEALTH MAINTENANCE Final Result * FIT-DNA (Cologuard) (12/18/2023) [facility] Colorectal Cancer Screening: FIT-DNA (Cologuard) no interpretation , abstracted Result [facility] Provider HEALTH MAINTENANCE Final Result * Lipid panel (06/03/2023) [facility] Triglycerides 0 mg/dL Comment:no interpretation Cholesterol 0 mg/dL Comment:no interpretation HDL 0 mg/dL Comment:no interpretation LDL Cholesterol 0 mg/dL Comment:no interpretation Blood Venous blood specimen / Unknown Result [facility] Provider LAB BLOOD ORDERABLES Judy l Result * Hemoglobin A1c (05/21/2022) [facility] Hemoglobin A1C 0.0 % Comment:no interpretation Blood Venous blood specimen / Unknown Result [facility] Provider LAB BLOOD ORDERABLES Judy l Result * Cervical Cancer Screening: HPV (04/17/2021) [facility] Cervical Cancer Screening: HPV no interpretation , abstracted Result [facility] Provider HEALTH MAINTENANCE Final Result from Last 3 Months or Most Recently Relevant to Health Maintenance Insurance MEDICAID - [place] Care Teams Slot Supervisor Relationship Specialty Start Date End Date Gerry Lopez MD [address] [place] [phone] PCP - General 07/29/22
== END 2025-03-09 00:01 | disposition home or self-care (01) ==
LOC: CF
PROVIDERS: PCP Internal Medicine; Visit Provider Internal Medicine Cardiovascular Disease
DX: R07.2 Precordial pain (principal)
CPT/HCPCS: 99202

== ENCOUNTER 2025-03-09 14:00 | Outpatient (AMB) | payer MEDICAID, SELFPAY ==
--- NOTE | 2025-03-09 14:03 | MHC.OFFVIS ---
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 Intake Note: New patient chest pain c/o chest pain every couple of days when breathing Lumber Marker Required: Yes Lumber Marker Services: Lumber Marker Present Lumber Marker Name: Jackie Tyler Allergies penicillin G [PENICILLIN G] Allergy (Severe, Verified 03/08/25 10:06) ANAPHYLAXIS shrimp Allergy (Severe, Verified 03/08/25 10:06) Anaphylaxis Penicillins [PCN] Allergy (Verified 03/08/25 10:06) Unknown Medication List - Last Reconciled 03/09/25 by Mike Layne MD acetaminophen ER 650 mg PO Q8H PRN buspirone 30 mg PO BID kwverchdgr-nlffsptwebkrn-nqwt 50-325-40 mg 1 - 2 tabs PO Q6-8H PRN celecoxib 100 mg PO BID cetirizine 1 tab PO DAILY cholecalciferol (vitamin D3) 25 mcg PO DAILY cholecalciferol (vitamin D3) 10 mcg PO DAILY citalopram 20 mg PO DAILY clindamycin phosphate 1% 1 appl topical DAILY clonazepam 1.5 mg PO BEDTIME cyclobenzaprine 5 mg PO TID dicyclomine 20 mg orally before breakfast, lunch, and dinner; diphenhydramine HCl (Banophen) 50 mg PO Q4-6H PRN fluticasone propionate 50 mcg/actuation 2 sprays intranasal DAILY gabapentin 200 mg (2 x 100 mg) PO TID hydrocortisone 2.5% 1 appl topical BID ketoconazole 2% 1 appl topical 2XW lidocaine 5% 1 patch transdermal Q3D PRN lisinopril 10 mg PO DAILY metformin 500 mg PO DAILY omeprazole 20 mg PO BID sodium chloride 0.65% (Saline Nasal) 1 - 2 sprays intranasal Q2-3H PRN tacrolimus 0.1% 1 appl topical DIRECTED topiramate 1 tab PO DAILY tramadol 50 mg PO Q6H PRN venlafaxine ER 150 mg PO QAM HPI Comments Details: Julia was referred here for evaluation of precordial chest pain. Patient is 50 year female with prior history of diabetes hypertension, obesity. Patient has been for couple of months having precordial chest pain. History was obtained with help of lead nitrate processor. Patient says that the symptoms happen not with exertion but mostly at rest. She is very bothered by the symptoms. She feels these symptoms as chest pressure associated with shortness of breath. Symptoms have somewhat improved over the last month or so. She denies any significant symptoms with exertion. Denies any palpitations. No lightheadedness, syncope. No prolonged irregular heartbeat. No orthopnea, PND, leg edema. Says blood pressure is generally well controlled. Says sugars are actually on the lower side now. She denies any smoking. Denies any family history of premature coronary artery disease. [facility] Medical History Fibromyalgia Epidermal cyst Pes cavus of both feet Allergies Headache GERD (gastroesophageal reflux disease) Surgical History History of removal of cyst (~06/27/24) History of shoulder surgery History of tubal ligation Hx of tonsillectomy Family History Mother Arthritis Father Diabetes Social History Household Members: Significant Other Are you a primary intensive care specialist to a significant other at home: No Do you presently have visiting nurse or other home services: No Alcohol intake: former Patient Tobacco Use Status: Former Tobacco user Current occupational status: employed and unemployed Review of Systems Const Denies chills, Denies daytime sleepiness, Denies fatigue, Denies fever(s), Denies frequent falls, Denies poor appetite, Denies snoring, Denies stops breathing during sleep, Denies weakness, Denies weight gain and Denies weight loss Eyes Denies loss of vision ENT Denies dizziness and Denies hearing loss Card Denies chest pain, Denies claudication, Denies leg edema, Denies lightheadedness, Denies palpitations, Denies dyspnea, Denies dyspnea on exertion and Denies orthopnea Resp Denies cough, Denies excessive phlegm production, Denies dyspnea, Denies dyspnea on exertion, Denies snoring and Denies wheezing GI Denies abdominal pain, Denies hematochezia, Denies change in bowel habits, Denies nausea and Denies vomiting Denies urinary frequency and Denies dysuria Musc Denies arthralgias, Denies muscle weakness, Denies numbness and Denies other (frequent falls) Skin/Breast Denies nail changes and Denies rash Neuro Denies Abnormal speech present, Denies dizziness, Denies frequent falls, Denies loss of vision, Denies memory loss, Denies numbness and Denies weakness Psych Denies depression and Denies memory loss Endo Denies fatigue and Denies palpitations Arnulfo/Lymph Reports easy bruising and Reports other (anemia) Aller/Immun Denies wheezing Physical Exam Vital Signs: Last Vital Signs Pulse 70 03/09/25 14:04 BP 110/68 03/09/25 14:04 BMI result Body Mass Index 34.8 Const General: cooperative, comfortable, no acute distress, alert and awake Nutritional Appearance: obese Orientation/consciousness: patient oriented x3 Limitations: no limitations HEENT Head: Yes normocephalic and Yes atraumatic Neck Neck: Yes trachea midline, Yes supple and Yes no JVD Resp Effort & Inspection: normal respiratory effort Auscultation: clear to auscultation bilaterally Cardio Jugular venous distension: no JVD Palpation: normal PMI Rate: regular rate Rhythm: regular rhythm Heart sounds: S1 normal heart sound present, S2 normal heart sound present, no click, no gallops, no murmurs and no rubs GI Auscultation: normal bowel sounds Skin General skin exam: no rashes or lesions noted Neuro General: patient oriented x3 and no focal motor deficits Speech: No Abnormal speech present Extrem General: Yes no clubbing, cyanosis or edema Assessment & Plan Assessment & Plan (1) Precordial chest pain: Code(s): R07.2 - Precordial pain Category: Medical Plan: Precordial chest pain this middle-aged woman with multiple risk factors for obstructive coronary artery disease. Symptoms of fairly atypical. Baseline EKGs normal. She can exercise treadmill. Will suggest a stress echocardiogram to further assess for myocardial ischemia. Also suggest an echocardiogram to evaluate LV systolic and diastolic function to evaluate for pulmonary hypertension LVH. These tests will be scheduled in near future. Further treatment based on the findings. Encouraged to continue to participate in aggressive risk factor modification. Blood pressure is currently well optimized. Continue lisinopril therapy. Goal hemoglobin A1c less than 7%. Target goal LDL less than 70 mg/dL being pursue through your office. Follow up in the clinic after above-mentioned test. Thank you for allowing me to partake in his care Coding Level of Care Code New Pt Level 4 (17751) Complex EM visit Add On G2211 Diagnoses Precordial chest pain R07.2
[2025-03-09 14:04] VITALS: BP 110/68; PULSE 70; BMI 34.8
--- OUTSIDE RECORDS SUMMARY | 2025-03-09 14:55 | XMS_ITS | Encounter Summary ---
Author Organization [employer] Address [address] [facility] 7t [place] [address] Care Team Providers Care Dairy Farm Manager Name Role Phone Gerry Echavarria MD Primary Care Provide r Reason for Visit * Reason Comments Med Refill Encounter Details Date Type Department Care Team ([facility] st Contact Info) Description 03/07/2025 Refill [facility] [address] [place], [place] [phone] Mala Williamson, ANP 230 [place] [address] Diarrhea, unspecified type; Irritable bowel syndrome, unspecified [...] 04/18/2025 11:15 AM EDT Office Visit [facility] [address] [place] [address] Gerry Echavarria MD 230 [place] [address] documented as of this encounter Goals Goal [...] documented as of this encounter Care Teams Dairy Farm Manager Relationship Specialty Start Date End Date Gerry Echavarria MD [address] [place] [address] PCP - General Internal Medicine 07/26/14 Theron New Plastic Surgery CoordinatorCover Cutter 01/08/24 [facility] 12/28/24 documented as of this encounter
--- OUTSIDE RECORDS SUMMARY | 2025-03-09 14:55 | XMS_ITS | Encounter Summary ---
Author Organization [employer] Address [address] [facility] [address] 7t [place] [address] Care Team Providers Care Glass Silverer Name Role Phone Gerry Echavarria MD Primary Care Provide r Reason for Visit * Reason Comments Med Refill Encounter Details Date Type Department Care Team ([facility] st Contact Info) Description 03/07/2025 Refill [facility] [address] [place] [phone] Gerry Echavarria MD 230 [place], [place] [phone] Mixed anxiety and depressive disorder; Fibromyalgia Social [...] Description 04/18/2025 11:15 AM EDT Office Visit [facility] 230 [place] [address] Gerry Echavarria MD 230 [place] [address] documented as of this encounter Goals Goal [...] documented as of this encounter Care Teams Glass Silverer Relationship Specialty Start Date End Date Gerry Echavarria MD 230 [place] [address] PCP - General Internal Medicine 07/26/14 Theron New Liquefaction And Regasification HelperMedical Billing Specialist 01/08/24 [facility] 12/28/24 documented as of this encounter
--- OUTSIDE RECORDS SUMMARY | 2025-03-09 14:55 | XMS_ITS | Encounter Summary ---
Author Organization [employer] Address [address] [facility] [address] 7t [place] [address] Care Team Providers Care Drive Away Driver Name Role Phone Gerry Echavarria MD Primary Care Provide r Reason for Visit * Reason Comments Med Refill Encounter Details Date Type Department Care Team ([facility] st Contact Info) Description 08/08/2023 Refill [facility] 230 [place], [place] [phone] Mala Williamson, ANP 230 [place] [address] Vertigo; Diarrhea, unspecified type; Irritable bowel syndrome, [...] Description 04/18/2025 11:15 AM EDT Office Visit [facility] 230 [place], [place] [phone] Gerry Echavarria MD 230 [place], [place] [phone] documented as of this encounter Goals Goal [...] documented as of this encounter Care Teams Drive Away Driver Relationship Specialty Start Date End Date Gerry Echavarria MD [address] [place] [address] PCP - General Internal Medicine 07/26/14 Theron New Coronary Clinical SpecialistRotor Coil Taper 01/08/24 [facility] 09/28/24 02/12/25 [facility] 12/28/24 documented as of this encounter
--- OUTSIDE RECORDS SUMMARY | 2025-03-09 14:55 | XMS_ITS | Encounter Summary ---
Author Organization [employer] Address [address] 7t [place] [address] Care Team Providers Care Admin Prog Coord Name Role Phone Gerry Echavarria MD Primary Care Provide r Encounter Details Date Type Department Care Team ([facility] st Contact Info) Description 10/06/2024 Telephone [facility] 230 [place], [place] [phone] Gerry Echavarria MD 230 [place], [place] [phone] Social History Tobacco Use Types Packs/Day Years [...] Description 04/18/2025 11:15 AM EDT Office Visit [facility] 230 [place] [address] Gerry Echavarria MD 230 [place] [address] documented as of this encounter Goals Goal [...] documented as of this encounter Care Teams Admin Prog Coord Relationship Specialty Start Date End Date Gerry Echavarria MD 230 [place] [address] PCP - General Internal Medicine 07/26/14 Theron New Space Sciences DirectorUpper Marker 01/08/24 [facility] 09/28/24 02/12/25 [facility] 12/28/24 documented as of this encounter
--- OUTSIDE RECORDS SUMMARY | 2025-03-09 14:55 | XMS_ITS | Encounter Summary ---
Author Organization [employer] Address [address] 7t [place] [address] Care Team Providers Care Automation Tender Name Role Phone Gerry Echavarria MD Primary Care Provide r Reason for Visit * Reason Comments Med Refill Encounter Details Date Type Department Care Team ([facility] st Contact Info) Description 02/28/2025 Refill [facility] [address] [place] [address] [phone] Gerry Echavarria MD 230 [place], [place] [phone] Polyarthralgia Social History Tobacco Use Types Packs/Day [...] 11:15 AM EDT Office Visit [facility] 230 [place] [address] Gerry Echavarria MD 230 [place] [address] documented as of this encounter Goals Goal Patient Goal Type Associated Problems Recent Progress Patient-Stated? Author Blood Pressure < 140/90 Blood Pressure Essential hypertension 119/70(2024 1:09 PM EDT) No Angel Emmanuel, oRney Note: BP at goal every other day; [...] documented as of this encounter Care Teams Automation Tender Relationship Specialty Start Date End Date Gerry Echavarria MD 230 [place] [address] PCP - General Internal Medicine 07/26/14 Theron New Inspector Floor Sub AssemblyPet Crematory Worker 01/08/24 [facility] 12/28/24 documented as of this encounter
--- OUTSIDE RECORDS SUMMARY | 2025-03-09 14:55 | XMS_ITS | Clinical Summary ---
Author Organization [address] [facility] Address 175 [place] [address] Phone Care Team Providers Care Relief Charge Nurse Name Role Phone Gerry Lopez MD Primary [...] PM EDT Office Visit Orthopedic Surgery - [address] [address] Juan Frey, DPM Synovitis and [...] PM EDT Office Visit Orthopedic Surgery - [place] [address] [phone] Juan Frey, POORNIMA [address] [address] Health Maintenance Due Date Last Done Comments [...] Informed Consent: ??Site: ??Foot ligament tendon Result [facility] Juan Frey DPM IN CLINIC/BEDSIDE ORDERAB LES Final Result * Annual BMP Blood Test (04/09/2024) [facility] Annual BMP Blood Test abstracted Result [facility] Provider HEALTH MAINTENANCE Final Result * FIT-DNA (Cologuard) (12/18/2023) [facility] Colorectal Cancer Screening: FIT-DNA (Cologuard) no interpretation , abstracted Result [facility] Provider HEALTH MAINTENANCE Final Result * Lipid panel (06/03/2023) [facility] Triglycerides 0 mg/dL Comment:no interpretation Cholesterol 0 mg/dL Comment:no interpretation HDL 0 mg/dL Comment:no interpretation LDL Cholesterol 0 mg/dL Comment:no interpretation Blood Venous blood specimen / Unknown Result [facility] Provider LAB BLOOD ORDERABLES Judy l Result * Hemoglobin A1c (05/21/2022) [facility] Hemoglobin A1C 0.0 % Comment:no interpretation Blood Venous blood specimen / Unknown Result [facility] Provider LAB BLOOD ORDERABLES Judy l Result * Cervical Cancer Screening: HPV (04/17/2021) [facility] Cervical Cancer Screening: HPV no interpretation , abstracted Result [facility] Provider HEALTH MAINTENANCE Final Result from Last 3 Months or Most Recently Relevant to Health Maintenance Insurance MEDICAID - [place] Care Teams Relief Charge Nurse Relationship Specialty Start Date End Date Gerry Lopez MD [address] [place] [address] [place] [phone] PCP - General 07/29/22
--- OUTSIDE RECORDS SUMMARY | 2025-03-09 14:56 | XMS_ITS ---
Author Organization [facility] Address [address] [facility] [address] [place] [address] Care Team Providers Care Oracle Forms Developer Name Role Phone Shantell Whitehead MD, Gerry Primary Care Provide linda Olivo Jr, Wesley Unavailable [phone] REASON FOR VISIT bowel prep Medications Medication [...] Active Encounters Encounter Location Date Provider Diagnosis [facility] [address] [place] [phone] 01/13/2024 Wesley Olivo Jr Plan Of Treatment [...] Provider Name:Wesley ferrer Jr, 04/10/2025 10:40:00 AM, [address] [place] [address], [address], [place], [address], Progress Notes * CHERELLE FLOREZDOB: 6 (48 yo F)Acc No.[id number]:01/13/2024 Patient:?CHERELLE FLOREZ :1975???Age:48 Y???Sex:Female Address:[address] [place] [address], [place] [address] * Refills? Start MiraLax (colon prep), 8.3 [...] true * Date:? Generated for Ada thompson/Tiff/Himanshuitting on:?03/09/2025 02:56 PM EDT
--- OUTSIDE RECORDS SUMMARY | 2025-03-09 14:56 | XMS_ITS | Encounter Summary ---
Author Organization [employer] Address [address] [facility] [address] 7t [place] [address] Care Team Providers Care Author Name Role Phone Gerry Echavarria MD Primary Care Provide r Reason for Visit * Reason Comments Med Refill Encounter Details Date Type Department Care Team ([facility] st Contact Info) Description 08/25/2023 Refill [facility] 230 [place], [place] [phone] Wendie Sandoval, [facility] 230 [place] [address] Social History Tobacco Use Types Packs/Day Years [...] 11:15 AM EDT Office Visit [facility] 230 [place] [address] Gerry Echavarria MD 230 [place], [place] [phone] documented as of this encounter Goals Goal [...] documented as of this encounter Care Teams Author Relationship Specialty Start Date End Date Gerry Echavarria MD 230 [place] [address] PCP - General Internal Medicine 07/26/14 Theron New Auto Carrier DriverAnalysis Manager 01/08/24 [facility] 09/28/24 02/12/25 [facility] 12/28/24 documented as of this encounter
--- OUTSIDE RECORDS SUMMARY | 2025-03-09 14:56 | XMS_ITS | Encounter Summary ---
Author Organization [employer] Address [address] [facility] [address] [facility] [address] 7t [place] [address] Care Team Providers Care Plexiglas Former Name Role Phone Gerry Echavarria MD Primary Care Provide r Reason for Visit * Reason Comments Med Refill Encounter Details Date Type Department Care Team ([facility] st Contact Info) Description 08/18/2023 Refill [facility] 230 [place], [place] [phone] Krystina Haji MD 230 [place], [place] [phone] Mixed anxiety and depressive disorder; Chronic migraine [...] 04/18/2025 11:15 AM EDT Office Visit [facility] 230 [place] [address] Gerry Echavarria MD 230 [place] [address] documented as of this encounter Goals Goal [...] documented as of this encounter Care Teams Plexiglas Former Relationship Specialty Start Date End Date Gerry Echavarria MD [address] [place] [address] PCP - General Internal Medicine 07/26/14 Theron New Airfreight Loading SupervisorChannel Layer 01/08/24 [facility] 09/28/24 02/12/25 [facility] 12/28/24 documented as of this encounter
--- OUTSIDE RECORDS SUMMARY | 2025-03-09 14:56 | XMS_ITS ---
Author Organization [facility] Address [address] [place] [address] Care Team Providers Care Tomato Pulper Operator Name Role Phone Shantell Whitehead MD, Gerry [...] Problem Status W/U Status Risk Notes Problem [id number] H. pylori infection (A04.8) Active confirmed Encounters Encounter Location Date Provider Diagnosis [facility] [address] [place] [phone] 02/24/2024 Wesley Olivo Jr H. pylori infection [...] Provider Name:Wesley ferrer Jr, 04/10/2025 10:40:00 AM, [address] [place] [address], [address], [place], [address], Progress Notes * CHERELLE FLOREZDOB: 6 (48 yo F)Acc No.[id number]:02/24/2024 Patient:?CHERELLE FLOREZ :1975???Age:48 Y???Sex:Female Address:[address] [place] [address] [place], [address] * Refills? Start Omeprazole Capsule Delayed Release, [...] true * Date:? Generated for Ada thompson/Tiff/eTransmitting on:?03/09/2025 02:55 PM EDT
--- OUTSIDE RECORDS SUMMARY | 2025-03-09 14:56 | XMS_ITS | Encounter Summary ---
Author Organization [employer] Address [address] [facility] 7t [place] [address] Care Team Providers Care Out Patient Therapist Name Role Phone Gerry Echavarria MD Primary Care Provide r Reason for Visit * Reason Comments Med Refill Encounter Details Date Type Department Care Team ([facility] st Contact Info) Description 09/10/2023 Refill [facility] [address] [place], [place] [phone] Gerry Echavarria MD 230 [place], [place] [phone] Social History Tobacco Use Types Packs/Day Years [...] 04/18/2025 11:15 AM EDT Office Visit [facility] [address] [place], [place] [phone] Gerry Echavarria MD 230 [place] [address] documented as of this encounter Goals Goal [...] documented as of this encounter Care Teams Out Patient Therapist Relationship Specialty Start Date End Date Gerry Echavarria MD 230 [place] [address] PCP - General Internal Medicine 07/26/14 Theron New Loan Workout OfficerFamily Support Specialist 01/08/24 [facility] 09/28/24 02/12/25 [facility] 12/28/24 documented as of this encounter
--- OUTSIDE RECORDS SUMMARY | 2025-03-09 14:56 | XMS_ITS | Encounter Summary ---
Author Organization [employer] Address [address] [facility] 7t [place] [address] Care Team Providers Care Web Publisher Name Role Phone Gerry Echavarria MD Primary Care Provide r Reason for Visit * Reason Comments Med Refill Encounter Details Date Type Department Care Team ([facility] st Contact Info) Description 09/22/2023 Refill [facility] 230 [place], [place] [phone] Tracey Leyav MD 230 [place], [place] [phone] Social History Tobacco Use Types Packs/Day Years [...] Office Visit [facility] 230 [place] [address] Gerry Echavarria MD [address] [place], [place] [phone] documented as of this encounter Goals Goal [...] PM EDT) No Anegl Emmanuel, PharmD Note: Look for low-sodium products [...] documented as of this encounter Care Teams Web Publisher Relationship Specialty Start Date End Date Gerry Echavarria MD [address] [place] [address] PCP - General Internal Medicine 07/26/14 Theron New Outside LaborerProject Inspector 01/08/24 [facility] 09/28/24 02/12/25 [facility] 12/28/24 documented as of this encounter
--- OUTSIDE RECORDS SUMMARY | 2025-03-09 14:56 | XMS_ITS | Encounter Summary ---
Author Organization [employer] Address [address] [facility] [address] 7t [place] [address] Care Team Providers Care Software Sales Manager Name Role Phone Gerry Echavarria MD Primary Care Provide r Reason for Visit * Reason Comments Med Refill Encounter Details Date Type Department Care Team ([facility] st Contact Info) Description 09/20/2023 Refill [facility] MED[facility]INE 230 [place], [place] [phone] Mala Williamson, ANP 230 [place] [address] Diarrhea, unspecified type; Irritable bowel syndrome, unspecified [...] 11:15 AM EDT Office Visit [facility]INE 230 [place] [address] Gerry Echavarria MD 230 [place] [address] documented as of this encounter Goals Goal [...] documented as of this encounter Care Teams Software Sales Manager Relationship Specialty Start Date End Date Gerry Echavarria MD [address] [place] [address] PCP - General Internal Medicine 07/26/14 Theron New Dye Tub TenderRehabilitation Liaison 01/08/24 [facility] 09/28/24 02/12/25 [facility] 12/28/24 documented as of this encounter
--- OUTSIDE RECORDS SUMMARY | 2025-03-09 14:56 | XMS_ITS | Encounter Summary ---
Author Organization [employer] Address [address] [facility] [address] 7t [place] [address] Care Team Providers Care Mining Plant Operator Name Role Phone Gerry Echavarria MD Primary Care Provide r Reason for Visit * Reason Comments Med Refill Encounter Details Date Type Department Care Team ([facility] st Contact Info) Description 09/22/2023 Refill [facility] MED[facility] 230 [place], [place] [phone] Mala Williamson, ANP 230 [place] [address] Diarrhea, unspecified type; Irritable bowel syndrome, unspecified [...] Description 04/18/2025 11:15 AM EDT Office Visit [facility] 230 [place] [address] Gerry Echavarria MD 230 [place] [address] documented as of this encounter Goals Goal [...] documented as of this encounter Care Teams Mining Plant Operator Relationship Specialty Start Date End Date Gerry Echavarria MD [address] [place] [address] PCP - General Internal Medicine 07/26/14 Theorn New Aircraft InspectorTrucker Hand 01/08/24 [facility] 09/28/24 02/12/25 [facility] 12/28/24 documented as of this encounter
--- OUTSIDE RECORDS SUMMARY | 2025-03-09 14:56 | XMS_ITS | Encounter Summary ---
Author Organization [employer] Address [address] [facility] 7t [place] [address] Care Team Providers Care Dental Surgery Doctor Name Role Phone Gerry Echavarria MD Primary Care Provide r Reason for Visit * Reason Onset Date Comments Med Refill 11/23/2024 Encounter Details Date Type Department Care Team ([facility] st Contact Info) Description 11/23/2024 Telephone [facility] MED[facility] 230 [place], [place] [phone] Gerry Echavarria MD 230 [place] [address] Med Refill Social History Tobacco Use Types [...] : FreeStyle lancets To be sent to: [facility]/pharmacy #[id number] documented in this encounter Plan of Treatment Upcoming Encounters Date Type Department Care Team (Late st Contact Info) Description 04/18/2025 11:15 AM EDT Office Visit [facility] 230 [place], [place] [phone] Gerry Echavarria MD 230 [place] [address] documented as of this encounter Goals Goal [...] documented as of this encounter Care Teams Dental Surgery Doctor Relationship Specialty Start Date End Date Gerry Echavarria MD [address] [place] [address] PCP - General Internal Medicine 07/26/14 Theron New Pharmacy Grad InternCork Painter And Grader 01/08/24 [facility] 09/28/24 02/12/25 [facility] 12/28/24 documented as of this encounter
--- OUTSIDE RECORDS SUMMARY | 2025-03-09 14:56 | XMS_ITS | Clinical Summary ---
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 [facility] [address] [place] [phone] [phone] * TSH with Reflex to Free T4 (01/19/2025 10:23 AM EDT) Only the most recent of2 resultswithin the time period is included. TSH reflex Free T4 3.67 0.32 - 4.0 uIU/mL [facility] Blood Venous blood specimen / Unknown 01/19/2025 10:23 AM EDT 01/19/2025 11:21 AM EDT Gerry Whitehead MD LAB BLOOD ORDERABLES Final Result Performing Organization Address [facility] Co de Phone Number [facility] [address] [place] [phone] * Albumin, Random Urine W/Creatinine (01/19/2025 10:23 AM EDT) Creatinine, Urine 258.90 mg/dL [facility] Microalbumin Urine 64.0 mg/L [facility] Microalbum Creatinine Ratio Ur 24.7 <30 ug/mg cr [facility] Comment:Albumin/Creatinine R atio Reference Ranges: Normal: < 30 ug/mg creatinine Microalbuminuria: 30 - 300 ug/mg creatinineClinical Albuminuria: > 300 ug/mg creatinine Urine (Urine, Random) 01/19/2025 10:23 AM EDT 01/19/2025 11:59 AM EDT Gerry Whitehead MD LAB URINE ORDERABLES Final Result Performing Organization Address [facility] Co de Phone Number [facility] [address] [place] [phone] * (ABNORMAL) POCT urinalysis dipstick manually [...] Media Lot # [id number] Lot# Expiration Date [id number] Urine 01/17/2025 4:05 PM EDT Krystina Haji MD POINT OF CARE TEST ENTER/EDIT OR DERABLES Final Result * Culture, Urine, Routine (01/17/2025 3:58 PM EDT) Urine Urine specimen obtained by clean catch procedure / Unknown 01/17/2025 3:58 PM EDT 01/17/2025 6:33 PM EDT Comment:UACC Narrative [facility] - 01/19/2025 11:46 AM EDT Lactobacillus species Quant 10,000 to 50,000 cfu/mL Specimen Source: Urine clean catch Krystina Haji MD LAB MICROBIOLOGY - GENERAL ORDER BERNA Edited Result - Final Performing Organization Address [facility] Co de Phone Number [facility] [address] [place] [phone] * D Dimer High Sensitivity (01/12/2025 3:45 PM EDT) D Dimer High Sensitivity 165 NG/ML [facility] Comment:D-DIMER HS REFERENCE RANGENote: Our [...] ORDERAB LES Final Result Performing Organization Address [facility]/ZIP Co de Phone Number [facility] [address] [place] [address] [phone] * SARS-CoV-2 RNA, Influenza A/B, and RSV RNA, Ql NAAT (01/12/2025 12:10 PM EDT) Influenza A PCR NEGATIVE Negative [facility] Influenza B PCR NEGATIVE Negative [facility] Resp Syncy Virus RNA Qual PCR NEGATIVE Negative [facility] SARS COV2 PCR NEGATIVE Negative [facility] Comment:All test results mus t [...] use by authorized laboratories.Testing performed on the [employer] GeneXpert utilizingreal-time RT-PCR.All SARS CoV2 and positive influenza A/B results arereported to [facility]. 01/12/2025 12:1 0 PM EDT 01/12/2025 12:18 PM EDT us Generic External Data Provider LAB MICROBIOLOGY - GENERAL ORDERABLES Final Result [facility] [address] [place] [phone] * XR Chest 2 Views (01/12/2025 11:56 AM EDT) Anatomical Region Laterality Modality Chest Radiographic Angy ging 01/12/2025 11:5 6 AM EDT Narrative 01/12/2025 12:47 PM EDT ? [facility] ?[address] ?[place] [address] ?XRay Report ? Signed ? Patient: Julia Smith ?MR#: ?? [id number] ? : 1975 ?Acct:[id number] ? Age/Sex: 49 / F ?ADM Date: 03/13/25 ? Loc: HO.ED ? Attending Dr: ? Ordering Physician: Kriss Askew ?? Date of Service: 01/12/25 ?? Procedure(s): XR chest 2V ?? Accession Number(s): [id number] ? cc: Aubrie Trinidad MD; Kriss Askew [...] DD/ 1156 ? TD/TT: 01/12/25 1239 ? Bookstore Clerk: ? Procedure Note Cierra, Image - 01/12/[address] [address] XRay Report Signed Patient: Julia SmithMR#: [id number] : 1975Acct:[id number] Age/Sex: 49 / FADM Date: 01/12/25 Loc: HO.ED Attending Dr: Ordering Physician: Kriss Askew Date of Service: 01/12/25 Procedure(s): XR chest 2V Accession Number(s): [id number] cc: Aubrie Trinidad MD; Kriss Askew EXAMINATION: [...] 01/12/25 1245 DD/ 1156 TD/TT: 01/12/25 1239 Bookstore Clerk: [facility] External Provider IMG XR PROCEDURES Edited [...] Media Lot # [id number] Lot# Expiration Date Blood Capillary blood specimen / Unknown 01/10/2025 9:56 AM EDT Gerry Whitehead MD POINT OF CARE TEST EN TER/EDIT ORDERABLES Final Result * (ABNORMAL) Lipid Panel, Standard (08/18/2024 11:31 AM EDT) Triglycerides 107 <150 mg/dL [facility] Comment:Desirable Triglyceri de: less than 150 mg/dLBorderline High Triglyceride 150-199 mg/dLHigh Triglyceride: 200-499 mg/dLVery High Triglyceride: greater than or equal to 5OO mg/dL Cholesterol 208(H) <200 mg/dL [facility] Comment:Desirable Cholestero l: less than 200 mg/dLBorderline High Cholesterol: 200-239 mg/dLHigh Cholesterol: greater than 239 mg/dL LDL Cholesterol Calculated 115(H) <100 mg/dL [facility] Comment:Desirable LDL: less than 100 mg/dLNear Optimal/Above Optimal LDL: 110- 129 mg/dLBorderline High LDL: 130-159 mg/dLHigh LDL: 160-189 mg/dLVery High LDL: greater than or equal to 190 mg/dL HDL Cholesterol 72 >40 mg/dL [facility] Comment:Desirable HDL: great er than 40 mg/dL Note: This HDL assay may give artificially low results in patients with liver disease. Blood Venous blood specimen / Unknown 08/18/2024 11:31 AM EDT 08/18/2024 1:14 PM EDT Gerry Whitehead MD LAB BLOOD ORDERABLES Final Result Performing Organization Address City/State/[facility] Co de Phone Number [facility] [address] [place] [phone] * BI Mammogram Screening Tomosynthesis Bilateral (06/09/2024 12:35 PM EDT) Anatomical Region Laterality Modality Breast Bilateral Mammography 06/09/2024 12:3 5 PM EDT Narrative 07/07/2024 11:45 AM EDT ? [facility] [place] ? [address] ?[place] [address] ? Mammography Report ? Signed ? Patient: Julia Smith ?MR#: ?? [id number] ? : 1975 ?Acct:[id number] ? Age/Sex: 49 / F ?ADM Date: 08/08/24 ? Loc: HO.MAMMO ? Attending Dr: Aubrie Trinidad MD ? Ordering Physician: Aubrie Trinidad MD ?Results: 1 ?? Negative ? Date of Service: 06/09/24 ?Follow Up: 1 Year From Orig ?? inal Mammogram ? Procedure(s): MM tomosynthesis screening BI ?? Accession Number(s): [id number] ? cc: Aubrie Trinidad MD ? EXAMINATION: [...] DD/ 1235 ? TD/TT: 06/09/24 1250 ? Bookstore Clerk: ? Procedure Note Donotuseinterpreter, Image - 07/07/2024 [facility] [address] [place], [place] [address] Mammography Report Signed Patient: Julia SmithMR#: [id number] : 1975Acct:[id number] Age/Sex: 49 / FADM Date: 06/09/24 Loc: HO.MAMMO Attending Dr: Aubrie Trinidad MD Ordering Physician: Aubrie Trinidad MDResults: 1 Negative Date of Service: 06/09/24Follow Up: 1 Year From Orig ina Mammogram Procedure(s): MM tomosynthesis screening BI Accession Number(s): [id number] cc: Aubrie Trinidad MD EXAMINATION: MM SCREENING [...] 07/07/24 1142 DD/ 1235 TD/TT: 06/09/24 1250 Bookstore Clerk: Aubrie Trinidad MD IM BI PROCEDURES Edited Re sult - Final * Hm Colonoscopy (02/08/2024) Colonoscopy Normal Normal Historical Provider [facility] Final Result * (ABNORMAL) Cologuard?? colon cancer screening (12/18/2023 11:00 AM EST) Cologuard Result Positive( A) Negative 12/27/2023 11:00 AM EST [facility] (CLIA #:[id number]) Comment: POSITIVE TEST RESULT. A positive Cologuard [...] (Jesenia Perez al, N Engl J Med 2014;370(14):2994-4371.) Cologuard may produce a false negative or false positive result (no colorectal cancer or precancerous polyp present at colonoscopy follow up). A negative Cologuard test result does not guarantee the absence of CRC or advanced adenoma (pre-cancer). The current Cologuard screening interval is every 3 years. ([place] [employer] Society and U.S. Multi-Society Task Force). Cologuard performance data in a 10,000 patient pivotal study using colonoscopy as the reference method can be accessed at the following location: [email or web address]/results. Additional description of the Cologuard test process, warnings and precautions can be found at [email or web address] [email or web address]. Stool specimen (specimen) 12/18/2023 11:00 AM EST 12/19/2023 1:02 PM EST Gerry Whitehead MD LAB MOLECULAR DIAGNOS TICS ORDERABLES Final Result [facility] (CLIA #:[id number]) [place] [address], * THINPREP PAP (04/17/2021 10:22 AM EDT) Clinical Information: None given [facility] COMMENT SEE COMMENT FOUNDATI ON [...] historic and ?? current clinical information. ?? Standards Engineer : SEE COMMENT [facility] Comment: GSG, CT(ASCP) CT screening location: [address] ??[address] Interpretation/R esult: Negative for intraepithelial lesion or malignancy. [facility] LMP: 03/21/2021 [facility] Prev. BX: NONE GIVEN FOUNDATIO N LAB SYSTEM Prev. PAP: NIL 03/2015 HPV - FO [facility] SOURCE: Cervix [facility] Statement Of Adequacy: SEE COMMENT [facility] Comment: Satisfactory for evaluation. Endocervical/transformation zone component present. 04/17/2021 10:2 2 AM EDT Wendie Sandoval [facility] LAB PATHOLOGY ORDERABLES Final Result Performing Organization Address [facility] Co de Phone Number [facility] [address] * HPV mRNA E6/E7 (04/17/2021 10:22 AM EDT) HPV nRNA E6/E7 Not Detected Not Detected [facility] Comment: Methodology: Diamond Powder Mixer-Mediated Amplification This assay detects E6/E7 viral messenger RNA (mRNA) from 14 high-risk HPV types (16,18,31,33,35,39,45,51,52,56,58,59,66,68). ? The analytical performance characteristics of this assay have been determined by [employer]. The modifications have not been cleared or approved by the FDA. This assay has been validated pursuant to the CLIA regulations and is used for clinical purposes. ?? For additional information, please refer to http://education.[employer]/faq/KUW474a2 (This link if provided for information/ educational purposes only.) 04/17/2021 10:2 2 AM EDT Wendie Sandoval [facility] LAB BLOOD ORDERABLES Judy l Result Performing Organization Address [facility] de Phone Number [facility] [address] from Last 3 Months or Most Recently Relevant to Health Maintenance Insurance [facility] C3 Care Teams Deliver Driver Relationship Specialty Start Date End Date Gerry Echavarria MD [address] [place] [phone] PCP - General Internal Medicine 07/26/14 Theron New Rn ImcuPublic Health Aides Teacher 01/08/24 [facility] 12/28/24
--- OUTSIDE RECORDS SUMMARY | 2025-03-09 14:56 | XMS_ITS | Encounter Summary ---
Author Organization [employer] Address [address] [facility] [address] [place] [address] Care Team Providers Care Technical Support Agent Name Role Phone Gerry Echavarria MD Primary Care Provide r Reason for Visit * Reason Comments Med Refill Encounter Details Date Type Department Care Team ([facility] st Contact Info) Description 09/20/[address] [facility] [place] [address] [place], [place] [phone] [facility] [address] [place] [address] Folliculitis Social History Tobacco Use Types Packs/Day [...] Office Visit [facility] [address] [place] [address] Gerry Echavarria MD [address] [place] [address] documented as of this encounter Goals Goal [...] as of this encounter Care Teams Technical Support Agent Relationship Specialty Start Date End Date Gerry Echavarria MD [address] [place] [phone] PCP - General Internal Medicine 07/26/14 Theron New Tubular Stock Glass Bulb Machine FormerDirector Of Cardiology Service Line 01/08/24 [facility] 09/28/24 02/12/25 [facility] 12/28/24 documented as of this encounter
--- OUTSIDE RECORDS SUMMARY | 2025-03-09 14:56 | XMS_ITS ---
Author Organization [facility] Address [address] [facility] [address] [place] [phone] Care Team Providers Care Sanitation Supervisor Name Role Phone Shantell Whitehead MD, Gerry Primary Care Provide r Itz Olivo Jr, Wesley Unavailable [phone] REASON FOR VISIT gerd,abn findings in stool Problems Problem Type SNOMED Code ICD Code Onset Dates Problem Status W/U Status Risk Notes Problem Gastroesophageal reflux disease (961748979) Chronic GERD (K21.9) Active confirmed Encounters Encounter Location Date Provider Diagnosis [facility] [address] [place] [phone] 02/12/2024 Wesley Olivo Jr Abnormal findings in [...] Name:Wesley ferrer Jr, 04/10/2025 10:40:00 AM, [address], [address], [place], [address], Progress Notes * FLOREZCHERELLE BEANDOB: 6 (50 yo F)Acc No.[id number]:02/12/2024 EGD and COL/MAC Patient:?LEISA FLOREZARIS Provider:?Wesley Olivo MD :1975???Age:48 Y???Sex:Female D ate:02/12/2024 Address: [place], [place] Pcp:Gerry flores MD Subjective: * Chief Complaints: * ???1. Gerd,abn findings in s tool. * Medical History:? Objective: * Vitals:? Assessment: * Assessment: 1.?Abnormal findings in stoo l - R19.5 (Primary)???2.?Colon polyps - K63.5???3.?Chronic GERD - K21.9??? Plan: * Treatment: * Procedure Codes:?25326 LESIO N REMOVAL COLONOSCOPY, 72858 UPPER GI ENDOSCOPY, BIOPSY * * The named appointment provid er may or may not be the originator of this progress note, and it is not deemed complete until electronically signed by the appointment provider. Sign off status: Pending * Provider:?Wesley Olivo MD Date:?0 02/12/2024 Generated for Ada thompson/Tiff/eTransmitting on:?03/09/2025 02:56 PM EDT
--- OUTSIDE RECORDS SUMMARY | 2025-03-09 14:56 | XMS_ITS | Encounter Summary ---
Author Organization [employer] Address [address] [facility] 7t [place] [address] Care Team Providers Care All Purpose Clerk Name Role Phone Gerry Echavarria MD Primary Care Provide r Reason for Visit * Reason Comments Med Refill Encounter Details Date Type Department Care Team ([facility] st Contact Info) Description 04/04/2023 Refill [facility] [address] [place], [place] [phone] Mala Williamson, ANP [address] [place] [address] Diarrhea, unspecified type; Irritable bowel syndrome, unspecified [...] [facility] [address] [place] [address] Gerry Echavarria MD [address] [place] [address] documented as of this encounter Goals Goal [...] documented as of this encounter Care Teams All Purpose Clerk Relationship Specialty Start Date End Date Gerry Echavarria MD [address] [place] [address] PCP - General Internal Medicine 07/26/14 Theron New Parking Lot AttendantInternet Marketing Director 01/08/24 [facility] 09/28/24 02/12/25 [facility] 12/28/24 documented as of this encounter
--- OUTSIDE RECORDS SUMMARY | 2025-03-09 14:56 | XMS_ITS | Encounter Summary ---
Author Organization [employer] Address [address] [facility] 7t [place] [address] Care Team Providers Care Bacon Stringer Name Role Phone Gerry Echavarria MD Primary Care Provide r Reason for Visit * Reason Onset Date Comments Nurse Triage 04/06/2023 Encounter Details Date Type Department Care Team ([facility] st Contact Info) Description 04/06/2023 Telephone [facility] [address] [place], [place] [phone] Gerry Echavarria MD [address] [place] [address] Nurse Triage Social History Tobacco Use Types [...] 04/06/2023 4:58 PM EDT Triage call with [place] Service Provider ID [id number] Pt reports cough, sore throat, headache and [...] Pt is advised to come to [facility] today to be seenand Pt [...] Getting worse The caller accepted this outcome (Danish speaker) documented in this encounter Plan of Treatment Upcoming Encounters Date Type Department Care Team (Late st Contact Info) Description 04/18/2025 11:15 AM EDT Office Visit [facility] [address] [place], [place] [phone] Gerry Echavarria MD [address] [place], [place] [phone] documented as of this encounter Goals Goal [...] documented as of this encounter Care Teams Bacon Stringer Relationship Specialty Start Date End Date Gerry Echavarria MD [address] [place], [place] [phone] PCP - General Internal Medicine 07/26/14 Theron New Manager GameKiln Feeder 01/08/24 [facility] 09/28/24 02/12/25 [facility] 12/28/24 documented as of this encounter
--- OUTSIDE RECORDS SUMMARY | 2025-03-09 14:56 | XMS_ITS | Encounter Summary ---
Author Organization [employer] Address [address] 7[address] [place] [address] Care Team Providers Care Integration Manager Name Role Phone Gerry Echavarria MD Primary Care Provide r Reason for Visit * Reason Comments Med Refill Encounter Details Date Type Department Care Team ([facility] st Contact Info) Description 08/18/2023 Refill [facility] [address] [address] [place], [place] COVID-19 Social History Tobacco [...] 11:15 AM EDT Office Visit [facility] [address] [place], [place] [phone] Gerry Echavarria MD [address] [place], [place] [phone] documented as of this encounter Goals Goal [...] documented as of this encounter Care Teams Integration Manager Relationship Specialty Start Date End Date Gerry Echavarria MD [address] [place] [address] PCP - General Internal Medicine 07/26/14 Theron [place] CaregiverTube Teller 01/08/24 [facility] 09/28/24 02/12/25 [facility] 12/28/24 documented as of this encounter
--- OUTSIDE RECORDS SUMMARY | 2025-03-09 14:56 | XMS_ITS | Encounter Summary ---
Author Organization [employer] Address [address] [facility] 7[address] [place] [address] Care Team Providers Care Sweet Goods Machine Operator Name Role Phone Gerry Echavarria MD Primary Care Provide r Reason for Visit * Reason Onset Date Comments Nurse Triage 12/14/2023 Encounter Details Date Type Department Care Team ([facility] st Contact Info) Description 12/14/2023 Telephone [facility] [address] [place], [place] [phone] Gerry Echavarria MD [address] [place] [address] Nurse Triage Social History Tobacco Use Types [...] given number to free telehealth service via [facility] [phone]. Pt to call them to see if [...] cough,fever) (Exceptions: Already seen by doctor or FABRIC PATTERN GRADER/PA and no new or worsening symptoms.) * [...] accepted this outcome Please contact pt @ [phone] Surinamese Pt advices feels her chest a little tight. Came out positive for COVID on 12/14/2023 documented in this encounter Plan of Treatment Upcoming Encounters Date Type Department Care Team (Late st Contact Info) Description 04/18/2025 11:15 AM EDT Office Visit [facility] [address] [place] [address] Gerry Echavarria MD [address] [place] [address] documented as of this encounter Goals Goal [...] documented as of this encounter Care Teams Sweet Goods Machine Operator Relationship Specialty Start Date End Date Gerry Echavarria MD [address] [place] [address] PCP - General Internal Medicine 07/26/14 Theron New Screen Room OperatorDefense Travel Administrator 01/08/24 [facility] 09/28/24 02/12/25 [facility] 12/28/24 documented as of this encounter
--- OUTSIDE RECORDS SUMMARY | 2025-03-09 14:56 | XMS_ITS | Encounter Summary ---
Author Organization [employer] Address [address] [facility] 7t [place] [address] Care Team Providers Care Outside Cutter Hand Name Role Phone Gerry Echavarria MD Primary Care Provide r Reason for Visit * Reason Comments Med Refill Encounter Details Date Type Department Care Team ([facility] st Contact Info) Description 09/20/2023 Refill [facility] MEDICINE 230 [place], [place] [phone] Tracey Leyva MD 230 [place], [place] [phone] Social History Tobacco Use Types Packs/Day Years [...] Description 04/18/2025 11:15 AM EDT Office Visit [facility] MEDICINE 230 [place] [address] Gerry Echavarria MD 230 [place], [place] [phone] documented as of this encounter Goals Goal [...] documented as of this encounter Care Teams Outside Cutter Hand Relationship Specialty Start Date End Date Gerry Echavarria MD 230 [place] [address] PCP - General Internal Medicine 07/26/14 Theron New Cellophane TesterMolecular Pathologist 01/08/24 [facility] 09/28/24 02/12/25 [facility] 12/28/24 documented as of this encounter
--- OUTSIDE RECORDS SUMMARY | 2025-03-09 14:56 | XMS_ITS | Encounter Summary ---
Author Organization [employer] Address [address] [facility] 7t [place] [address] Care Team Providers Care Microfiche Camera Operator Name Role Phone Gerry Echavarria MD Primary Care Provide r Encounter Details Date Type Department Care Team ([facility] Contact Info) Description 04/13/2023 Abstract [facility] 230 [place], [place] [phone] Gerry Echavarria MD 230 [place] [address] Social History Tobacco Use Types Packs/Day Years [...] EDT Office Visit [facility] [address] [place] [address] Gerry Echavarria MD [address] [place] [address] documented as of this encounter Goals Goal [...] documented as of this encounter Care Teams Microfiche Camera Operator Relationship Specialty Start Date End Date Gerry Echavarria MD [address] [place] [address] PCP - General Internal Medicine 07/26/14 Theron New Surgical OrderlyWeb Manager 01/08/24 [facility] 09/28/24 02/12/25 [facility] 12/28/24 documented as of this encounter
--- OUTSIDE RECORDS SUMMARY | 2025-03-09 14:56 | XMS_ITS | Encounter Summary ---
Author Organization [employer] Address [address] 7t [place] [address] Care Team Providers Care Dentist Attendant Name Role Phone Gerry Echavarria MD Primary Care Provide r Reason for Visit * Reason Comments Med Refill Encounter Details Date Type Department [facility] Description 09/20/2023 Refill [facility] [address] [place] [address] Amalia Ta MD [address] [place] [address] Social History Tobacco Use Types Packs/Day Years [...] Description 04/18/2025 11:15 AM EDT Office Visit [facility] MEDICINE 230 [place] [address] Gerry Echavarria MD 230 [place], [place] [phone] documented as of this encounter Goals Goal Patient Goal Type Associated Problems Recent Progress Patient-Stated? Author Blood Pressure < 140/90 Blood Pressure Essential hypertension 119/70(2024 1:09 PM EDT) No Angel Emmanuel, Roney Note: BP at goal every other day; encouraged lifestyle changes to promote BP control Follow the DASH diet Diet Essential hypertension On track( 024 4:06 PM EDT) No nAgel Emmanuel, PharmD Note: Look for low-sodium products [...] documented as of this encounter Care Teams Dentist Attendant Relationship Specialty Start Date End Date Gerry Echavarria MD 230 [place] [address] PCP - General Internal Medicine 07/26/14 Theron New Machining Department SupervisorFood Or Baggage Handling Rampman 01/08/24 [facility] 09/28/24 02/12/25 [facility] 12/28/24 documented as of this encounter
--- OUTSIDE RECORDS SUMMARY | 2025-03-09 14:56 | XMS_ITS | Encounter Summary ---
Author Organization [employer] Address [address] [facility] 7t [place] [address] Care Team Providers Care Sales Team Member Name Role Phone Gerry Echavarria MD Primary Care Provide r Reason for Visit * Reason Comments Med Refill Encounter Details Date Type Department Care Team ([facility] st Contact Info) Description 03/24/2024 Refill [facility] MEDICINE 230 [place], [place] [phone] Name, MD Wai [address] [place] [address] Seasonal allergies Social History Tobacco Use Types [...] Office Visit [facility] MEDICINE [address] [place] [address] Gerry Echavarria MD 230 [place] [address] documented as of this encounter Goals Goal [...] as of this encounter Care Teams Sales Team Member Relationship Specialty Start Date End Date Gerry Echavarria MD 230 [place] [address] PCP - General Internal Medicine 07/26/14 Theron New Principal Solutions ArchitectBush And Vine Farmer Fruit Crops 01/08/24 [facility] 09/28/24 02/12/25 [facility] 12/28/24 documented as of this encounter
--- OUTSIDE RECORDS SUMMARY | 2025-03-09 14:56 | XMS_ITS | Encounter Summary ---
Author Organization [employer] Address [address] 7t [place] [address] Care Team Providers Care Corrosion Engineer Name Role Phone Gerry Echavarria MD Primary Care Provide r Reason for Visit * Reason Comments Med Refill Encounter Details Date Type Department Care Team ([facility] st Contact Info) Description 08/18/2023 Refill [facility] MEDICINE 230 [place], [place] [phone] Wendie Sandoval, [facility] 230 [place] [address] Social History Tobacco Use Types Packs/Day Years [...] 04/18/2025 11:15 AM EDT Office Visit [facility] MEDICINE [address] [place] [address] Gerry Echavarria MD 230 [place], [place] [phone] documented as of this encounter Goals Goal [...] documented as of this encounter Care Teams Corrosion Engineer Relationship Specialty Start Date End Date Gerry Echavarria MD 230 [place] [address] PCP - General Internal Medicine 07/26/14 Theron New Regulatory Compliance DirectorLapidary Apprentice 01/08/24 [facility] 09/28/24 02/12/25 [facility] 12/28/24 documented as of this encounter
--- OUTSIDE RECORDS SUMMARY | 2025-03-09 14:56 | XMS_ITS | Encounter Summary ---
Author Organization [employer] Address [address] 7[address] [place] [address] Care Team Providers Care Plant Sciences Professor Name Role Phone Gerry Echavarria MD Primary Care Provide r Reason for Visit * Reason Onset Date Comments Order 09/18/2023 Encounter Details Date Type Department Care Team ([facility] st Contact Info) Description 09/18/2023 Telephone [facility] MEDICINE 230 [place], [place] [phone] Gerry Echavarria MD 230 [place] [address] Order Social History Tobacco Use Types Packs/Day [...] and video instructions. Please contact pt at [phone] Irish Speaker TC placed with [employer] ID # [id number]. Pt answered the phone and hung up on software development manager, called placed again and a message was left in Irish for her to contact the [facility]. I do not see anything in [...] and video instructions. Please contact pt at [phone] Irish Speaker documented in this encounter Plan of Treatment Upcoming Encounters Date Type Department Care Team ([facility] st Contact Info) Description 04/18/2025 11:15 AM EDT Office Visit [facility] MEDICINE [address] [place] [address] Gerry Echavarria MD [address] [place] [address] documented as of this encounter Goals Goal [...] documented as of this encounter Care Teams Plant Sciences Professor Relationship Specialty Start Date End Date Gerry Echavarria MD [address] [place] [address] PCP - General Internal Medicine 07/26/14 Theron New Forest Science ProfessorShuttle Car Operator 01/08/24 [facility] 09/28/24 02/12/25 [facility] 12/28/24 documented as of this encounter
--- OUTSIDE RECORDS SUMMARY | 2025-03-09 14:56 | XMS_ITS | Patient Health Record ---
Author Organization [facility] Address [address] [place] [address] Care Team Providers Care Grain Combiner Name Role Phone Shantell Whitehead MD, Gerry Primary Care Provide r Unavailable Wesley Gibson Jr Unavailable [phone] Allergies Allergen (clinical drug ingredient) Drug/Non Drug Allergy documented on EMR Reaction Allergy Type Onset Date Status shrimp allergenic extract Shrimp (Diagnostic) Unknown Drug Allergy Active Penicillin Unknown Drug Allergy Active Reason For Referral Referring Provider First Name Gerry Referring Provider Last Name Shantell sellers Referring Provider Speciality Internal M edicine Referred Organization [facility] Referred Provider Wesley Gibson Jr Referred Address [address] [facility],[place], [place],[address],[place] Referred Provider Specialty Gastroentero logy General Notes Zuleyka Thornton 2024 01:30:07 PM >REQUESTED A [place] REFERRAL FROM [facility] FOR VISIT WITH DR GIBSON ON [phone], Zuleyka Thornton 03/08/2025 03:18:36 PM >REQUSTED REFERRAL AGAIN Referral Priority Routine Medications Medication SIG (Take, [...] Problem Status W/U Status Risk Notes Problem [id number] Abnormal finding s in stool (R19.5) Active confirmed Problem [id number] H. pylori infection (A04.8) Active confirmed Problem [id number] Gastroesophageal reflux disease, unspecified whether esophagitis present (K21.9) Active confirmed Problem Gastroesophageal reflux disease (077001601) Chronic GERD (K21.9) Active confirmed Plan Of Treatment Pending Test Test Name Order Date H PYLORI AG, STOOL 02/24/2024 Future Test Test Name Order Date UPPER GI ENDOSCOPY 05/02/2015 UPPER GI ENDOSCOPY 01/13/2024 COLONOSCOPY 01/13/2024 Next Appt Details Provider Name:Wesley ferrer , 04/10/2025 10:40:00 AM, [address] [place] [address], [address], [place], [address], Insurance Providers Payer Name Payer Address Payer Phone Subscriber Number Group Number Insured Name Patient Relationship to Insured Coverage Start Date Coverage End Date MEDICAID OF [facility] [address] [place] [address] [id number] CHERELLE FLOREZ Self - patient is the insured Medical (General) History Medical History History ICD Code esophageal reflux, EGD 05/16, no [place]' s esophagus or H. pylori. Headaches Allergic rhinitis Insomnia Fibromyalgia Osteoarthritis Diabetes mellitus type 2 Surgical History Surgery Date(Month/Year) tonsillectomy tubal ligation
--- OUTSIDE RECORDS SUMMARY | 2025-03-09 14:56 | XMS_ITS | Encounter Summary ---
Author Organization [employer] Address [address] [facility] 7t [place] [address] Care Team Providers Care Healthcare Translator Name Role Phone Gerry Echavarria MD Primary Care Provide r Reason for Visit * Reason Onset Date Comments Med Refill 12/30/2022 Encounter Details Date Type Department Care Team ([facility] st Contact Info) Description 12/30/2022 Telephone [facility] MEDICINE 230 [place], [place] [phone] Gerry Echavarria MD 230 [place] [address] Med Refill Social History Tobacco Use Types [...] no hx of being on meclizine in [employer] or [employer] * Telephone Encounter - Evelio Guevara - 12/30/2022 1:02 PM EST Tc from pt requesting a Script for Meclazine that helps pt with her ongoing lightheadedness. Please contact pt at [phone] documented in this encounter Plan of Treatment Upcoming Encounters Date Type Department Care Team (Late st Contact Info) Description 04/18/2025 11:15 AM EDT Office Visit [facility] MEDICINE 230 [place], [place] [phone] Gerry Echavarria MD 230 [place], [place] [phone] documented as of this encounter Goals Goal [...] giddiness documented in this encounter Care Teams Healthcare Translator Relationship Specialty Start Date End Date Gerry Echavarria MD 230 [place], [place] [phone] PCP - General Internal Medicine 07/26/14 Theron New Paper Products InspectorPort Drier 01/08/24 [facility] 09/28/24 02/12/25 [facility] 12/28/24 documented as of this encounter
--- OUTSIDE RECORDS SUMMARY | 2025-03-09 14:56 | XMS_ITS | Encounter Summary ---
Author Organization [employer] Address [address] [address] 7t [place] [address] Care Team Providers Care Bar Turner Name Role Phone Gerry Echavarria MD Primary Care Provide r Reason for Visit * Reason Comments Med Refill Encounter Details Date Type Department Care Team ([facility] st Contact Info) Description 09/10/2023 Refill [facility] MEDICINE 230 [place], [place] [phone] Wendie Sandoval, [facility] 230 [place] [address] Social History Tobacco Use Types Packs/Day Years [...] Description 04/18/2025 11:15 AM EDT Office Visit [facility] MEDICINE 230 [place] [address] Gerry Echavarria MD 230 [place], [place] [phone] documented as of this encounter Goals Goal [...] documented as of this encounter Care Teams Bar Turner Relationship Specialty Start Date End Date Gerry Echavarria MD 230 [place] [address] PCP - General Internal Medicine 07/26/14 Theron New Fuel Cell Systems EngineerBroadcast Transmitter Operator 01/08/24 [facility] 09/28/24 02/12/25 [facility] 12/28/24 documented as of this encounter
--- OUTSIDE RECORDS SUMMARY | 2025-03-09 14:56 | XMS_ITS | Encounter Summary ---
Author Organization [employer] Address [address] [facility] 7t [place] [address] Care Team Providers Care Mortgage Protection Sales Name Role Phone Gerry Echavarria MD Primary Care Provide r Reason for Visit * Reason Onset Date Comments Med Refill 10/11/2024 Encounter Details Date Type Department Care Team ([facility] st Contact Info) Description 10/11/2024 Telephone [facility] MEDICINE 230 [place], [place] [phone] Gerry Echavarria MD 230 [place] [address] Med Refill Social History Tobacco Use Types [...] tablet To be sent to: [facility]/pharmacy #[id number] [place] [address] - [address] [place] [address] documented in this encounter Plan of Treatment Upcoming Encounters Date Type Department Care Team (Late st Contact Info) Description 04/18/2025 11:15 AM EDT Office Visit [facility] MEDICINE 230 [place] [address] Gerry Echavarria MD 230 [place] [address] documented as of this encounter Goals Goal [...] documented as of this encounter Care Teams Mortgage Protection Sales Relationship Specialty Start Date End Date Gerry Echavarria MD [address] [place] [address] PCP - General Internal Medicine 07/26/14 Theron New Correctional Medicine PhysicianFlat Lock Operator 01/08/24 [facility] 09/28/24 02/12/25 [facility] 12/28/24 documented as of this encounter
--- OUTSIDE RECORDS SUMMARY | 2025-03-09 14:56 | XMS_ITS | Encounter Summary ---
Author Organization [employer] Address [address] [facility] 7t [place] [address] Care Team Providers Care Transfusion Nurse Name Role Phone Gerry Echavarria MD Primary Care Provide r Reason for Referral * Consultation (Routine) - Closed Specialty Diagnoses / Procedures Referred By Contsanket gracia Referred To Contact Urology Diagnoses Nephrolithiasis Krystina Haji MD [address] [place] [address] Phone: tel: fax: [facility] Referral ID Status Reason Start Date Expiration Date V isits Requested Visits Authorized [id number] Closed Specialty Services Required 01/24/2025 01/24/2026 6 6 Encounter Details Date Type Department Care Team (Late st Contact Info) Description 01/21/2025 Orders Only [facility] MEDICINE [address] [place] [phone] Krystina Haji MD 230 [place], [place] [phone] Nephrolithiasis (Primary Dx) Social History Tobacco Use [...] Description 04/18/2025 11:15 AM EDT Office Visit [facility] MEDICINE 230 [place] [address] Gerry Echavarria MD 230 [place] [address] Scheduled Referrals Name Type Priority Associated Diagnoses [...] documented as of this encounter Care Teams Transfusion Nurse Relationship Specialty Start Date End Date Gerry Echavarria MD [address] [place] [address] PCP - General Internal Medicine 07/26/14 Theron New Mess CookPot Press Operator 01/08/24 [facility] 09/28/24 02/12/25 [facility] 12/28/24 documented as of this encounter
--- OUTSIDE RECORDS SUMMARY | 2025-03-09 14:56 | XMS_ITS | Encounter Summary ---
Author Organization [employer] Address [address] [facility] 7t [place] [address] Care Team Providers Care Enterprise Mobility Architect Name Role Phone Gerry Echavarria MD Primary Care Provide r Reason for Visit * Reason Onset Date Comments triage 12/26/2022 Encounter Details Date Type Department Care Team ([facility] st Contact Info) Description 12/26/2022 Telephone [facility] MEDICINE 230 [place], [place] [phone] Gerry Echavarria MD 230 [place] [address] triage Social History Tobacco Use Types Packs/Day [...] accepted this outcome Please contact pt at [phone] documented in this encounter Plan of Treatment Upcoming Encounters Date Type Department Care Team (Late st Contact Info) Description 04/18/2025 11:15 AM EDT Office Visit [facility] [address] [facility] [address] Gerry Echavarria MD 230 [place] [address] documented as of this encounter Goals Goal [...] on filedocumented in this encounter Care Teams Enterprise Mobility Architect Relationship Specialty Start Date End Date Gerry Echavarria MD 230 [facility] [place] [address] PCP - General Internal Medicine 07/26/14 Theron New Aquatic DirectorJava Mobile Developer 01/08/24 [facility] 09/28/24 02/12/25 [facility] 12/28/24 documented as of this encounter
--- OUTSIDE RECORDS SUMMARY | 2025-03-09 14:56 | XMS_ITS | Encounter Summary ---
Author Organization [employer] Address [address] 7t [place] [address] Care Team Providers Care Precise Winder Name Role Phone Gerry Echavarria MD Primary Care Provide r Reason for Visit * Reason Comments Med Refill Encounter Details Date Type Department Care Team ([facility] st Contact Info) Description 08/08/2023 Refill [facility] MEDICINE 230 [place], [place] [phone] Name, MD Wai 230 [place] [address] Mixed anxiety and depressive disorder Social History [...] EDT Office Visit [facility] MEDICINE 230 [place] [address] Gerry Echavarria MD [address] [place] [address] documented as of this encounter Goals Goal [...] documented as of this encounter Care Teams Precise Winder Relationship Specialty Start Date End Date Gerry Echavarria MD [address] [place] [address] PCP - General Internal Medicine 07/26/14 Theron New Emergency Medical TechSoftware Development Advisor 01/08/24 [facility] 09/28/24 02/12/25 [facility] 12/28/24 documented as of this encounter
--- OUTSIDE RECORDS SUMMARY | 2025-03-09 14:56 | XMS_ITS | Encounter Summary ---
Author Organization [employer] Address [address] [facility] 7t [place] [address] Care Team Providers Care Elementary Education Teacher Name Role Phone Gerry Echavarria MD Primary Care Provide r Reason for Visit * Reason Onset Date Comments Med Refill 11/07/2024 Encounter Details Date Type Department Care Team (Late st Contact Info) Description 11/07/2024 Refill [facility] MEDICINE 230 [place], [place] [phone] Name, MD Wai 230 [place] [address] Fibromyalgia Social History Tobacco Use Types Packs/Day [...] Office Visit [facility] MEDICINE 230 [place] [address] Gerry Echavarria MD 230 [place] [address] documented as of this encounter Goals Goal [...] documented as of this encounter Care Teams Elementary Education Teacher Relationship Specialty Start Date End Date Gerry Echavarria MD 230 [place] [address] PCP - General Internal Medicine 07/26/14 Theron New Dry Cleaning Counter ClerkDietary Assistant 01/08/24 [facility] 09/28/24 02/12/25 [facility] 12/28/24 documented as of this encounter
--- OUTSIDE RECORDS SUMMARY | 2025-03-09 14:56 | XMS_ITS | Encounter Summary ---
Author Organization [employer] Address [address] 7[address] [place] [address] Care Team Providers Care Cnc Service Engineer Name Role Phone Gerry Echavarria MD Primary Care Provide r Reason for Visit * Reason Comments Med Refill Encounter Details Date Type Department Care Team ([facility] st Contact Info) Description 11/13/2023 Refill [facility] MEDICINE 230 [place], [place] [phone] Krystina Haji MD 230 [place], [place] [phone] Chronic migraine without aura without status migrainosus, [...] Description 04/18/2025 11:15 AM EDT Office Visit [facility] MEDICINE 230 [place] [address] Gerry Echavarria MD 230 [place] [address] documented as of this encounter Goals Goal [...] documented as of this encounter Care Teams Cnc Service Engineer Relationship Specialty Start Date End Date Gerry Echavarria MD [address] [place] [address] PCP - General Internal Medicine 07/26/14 Theron New Cloth GraderRecreation Coordinator 01/08/24 [facility] 09/28/24 02/12/25 [facility] 12/28/24 documented as of this encounter
== END 2025-03-09 14:24 | disposition home or self-care (01) ==
LOC: HO.HCS 14:00
PROVIDERS: PCP Internal Medicine; Visit Provider Internal Medicine Cardiovascular Disease
DX: R07.2 Precordial pain (principal)
CPT/HCPCS: 99204

== ENCOUNTER 2025-03-15 11:02 | Outpatient (AMB) | payer MEDICAID, SELFPAY ==
--- NOTE | 2025-03-15 11:06 | MHC.OFFVIS ---
Vital Signs 03/15/25 11:08 Height 5 ft 5 in Weight 209 lb BMI 34.8 BP 127/65 Blood Pressure Location Lt brachial Position Sitting Respiration 16 Pulse 88 Pulse Source Pulse Oximeter Pulse Oximetry (%) 97 Oxygen Delivery Method Room Air Intake Visit Reasons: pondylosis without myelopathy, lumbar region Commercial Real Estate Underwriter Required: Yes Commercial Real Estate Underwriter Services: Commercial Real Estate Underwriter Present Commercial Real Estate Underwriter Name: [id number] Allergies penicillin G [PENICILLIN G] Allergy (Severe, Verified 03/15/25 11:10) ANAPHYLAXIS shrimp Allergy (Severe, Verified 03/15/25 11:10) Anaphylaxis Penicillins [PCN] Allergy (Verified 03/15/25 11:10) Unknown Medication List - Last Reconciled 03/15/25 by Danette Abrams LPN acetaminophen ER 650 mg PO Q8H PRN buspirone 30 mg PO BID fabyrkyvar-ighbvqrcezioc-xqss 50-325-40 mg 1 - 2 tabs PO Q6-8H PRN celecoxib 100 mg PO BID cetirizine 1 tab PO DAILY cholecalciferol (vitamin D3) 25 mcg PO DAILY cholecalciferol (vitamin D3) 10 mcg PO DAILY citalopram 20 mg PO DAILY clindamycin phosphate 1% 1 appl topical DAILY clonazepam 1.5 mg PO BEDTIME cyclobenzaprine 5 mg PO TID dicyclomine 20 mg orally before breakfast, lunch, and dinner; diphenhydramine HCl (Banophen) 50 mg PO Q4-6H PRN fluticasone propionate 50 mcg/actuation 2 sprays intranasal DAILY gabapentin 200 mg (2 x 100 mg) PO TID hydrocortisone 2.5% 1 appl topical BID ketoconazole 2% 1 appl topical 2XW lidocaine 5% 1 patch transdermal Q3D PRN lisinopril 10 mg PO DAILY metformin 500 mg PO DAILY omeprazole 20 mg PO BID sodium chloride 0.65% (Saline Nasal) 1 - 2 sprays intranasal Q2-3H PRN tacrolimus 0.1% 1 appl topical DIRECTED topiramate 1 tab PO DAILY tramadol 50 mg PO Q6H PRN venlafaxine ER 150 mg PO QAM HPI Comments Details: Visit completed with director experimental medicine Joslyn, #[id number] The patient is a 50-year-old female presenting with chronic back pain. The pain has been persistent and aggravated by specific activities such as sitting, standing, and walking for extended periods. She reports an incomplete response to prior physical therapy, which mainly targeted her neck, and noted inadequate relief with a prescribed muscle relaxer. Current management includes Tylenol and gabapentin; however, she avoids NSAIDs due to history of stomach ulcer. The patient resides in [place] and prefers to attend physical therapy sessions closer to her home. Denies radiation of the pain down either lower extremity. Denies numbness, tingling, weakness of either lower extremity. - Onset: Chronic - Quality: Deep aching pain - Primary Location: Lower back - Exacerbating Factors: Straightening up, sitting down, long duration of walking, twisting movements such as sweeping and mopping - Relieving Factors: None explicitly discussed - Interference with Activities: Requires assistance for household tasks - Affect: Impact on daily activities noted, requiring assistance for chores - Analgesia: Currently using Tylenol and gabapentin; previous muscle relaxer was ineffective - Adverse Effects: None stated with current medications, but NSAIDs cause stomach upset - Activities of Daily Living: Pain limits independent functioning for household tasks - Aberrant Drug Related Behaviors: None indicated Prior visit 10/2023: Julia is a very pleasant 48-year-old female who presents to the office today for evaluation management of her chronic lower back pain. Visit was completed with director experimental medicine Konrad, [id number]. Patient reports that she has been suffering with this pain for many years. Patient denies inciting injury, she attributed to work and overuse. She endorses pain across her lower back and upper buttocks. Pain is worse with movement, sitting, walking and standing. If she sits for long time the pain will radiate into her buttocks on both sides. Patient currently taking anti-inflammatory medication and gabapentin. Gabapentin was recently increased but she does not note any improvement in her pain. She does use topical lidocaine patches at home that provide a little relief. She has not attempted physical therapy, home exercise program, manual manipulation by chiropractor, acupuncture, massage or injections. Patient denies prior history of surgery of her neck or back. Patient denies red flag symptoms including new loss of bowel, bladder or saddle anesthesia. She denies electrical, shooting pains down either leg. She denies weakness, numbness, tingling of either lower extremity. In terms of muscle damage condition is described as aching, throbbing, sharp, burning, spasming. Pain is negatively impacting patient's general activity, ability to perform activities of daily living, normal work, sleep and walking. [facility] Medical History Fibromyalgia Epidermal cyst Pes cavus of both feet Allergies Headache GERD (gastroesophageal reflux disease) Surgical History History of removal of cyst (~06/27/24) History of shoulder surgery History of tubal ligation Hx of tonsillectomy Family History Mother Arthritis Father Diabetes Social History Household Members: Significant Other Are you a primary day care aide to a significant other at home: No Do you presently have visiting nurse or other home services: No Alcohol intake: former Patient Tobacco Use Status: Former Tobacco user Current occupational status: employed and unemployed Review of Systems Const Details: - Musculoskeletal: Reports chronic back pain exacerbated by movements and position changes - Gastrointestinal: Denies current use of NSAIDs due to stomach upset Physical Exam Vital Signs: Last Vital Signs Pulse 88 03/15/25 11:08 Resp 16 03/15/25 11:08 BP 127/65 03/15/25 11:08 Pulse Ox 97 03/15/25 11:08 Oxygen Delivery Method Room Air 03/15/25 11:08 BMI result Body Mass Index 34.8 General: awake, alert, oriented. Answers questions appropriately. Fully engaged in examination. Skin: warm, dry, intact HEENT: Normocephalic. Hearing intact. Cardiac: External chest normal in appearance. Respiratory: No cough, audible wheezing or stridor. Abdomen: without gross distension. MS: No obvious swelling or deformities. Able to transition from sit to stand unassisted. Ambulates with bilaterally normal heel strike and toe off SLR with and without dorsiflexion negative bilaterally Tender to palpation across lower back, midline vertebrae and lumbar paraspinal muscles Neurological: Oriented to person, place, time and situation. Thought process intact. No gait abnormalities appreciated. Psychiatric: Appropriate mood and affect. Good judgment and insight. Results Reviewed Results Reviewed: 06/24/23 XR LS IMPRESSION: 1. No significant disc space narrowing or vertebral body height loss in the lumbar spine. There are minimal spondylitic endplate changes. Assessment & Plan Assessment & Plan (1) Lumbar facet arthropathy: Code(s): M47.816 - Spondylosis without myelopathy or radiculopathy, lumbar region Category: Medical (2) Chronic back pain: Code(s): M54.9 - Dorsalgia, unspecified; G89.29 - Other chronic pain Category: Medical Plan For the management of the patient?s chronic back pain, an updated x-ray of the lower back is ordered to provide current imaging for assessment. Physical therapy will be rearranged to focus specifically on back pain and conducted in [place] to accommodate the patient?s preference. A new muscle relaxer prescription is provided, with instructions to use primarily at bedtime to mitigate drowsiness during the day, advising against driving if sedation occurs. The patient is scheduled for follow-up after completing physical therapy to evaluate improvement or necessity for additional treatments like injections. Continuous monitoring of medication tolerance and effectiveness will be essential in optimizing treatment. During our discussion, I addressed the potential continuity of the chronic back pain and detailed the benefits of obtaining a more current x-ray to revisit the etiology of the discomfort considering the 2022 x-ray might not provide comprehensive insights. We conversed about reinitiating physical therapy with a focus on the low back and conveniently assigning sessions in [place]. I proposed trying a different muscle relaxer since the previous one was ineffective and emphasized discussing any adverse effects like sedation with me. We discussed potential escalation of interventions, like injections, during follow-up if necessary, reinforcing that she should promptly reach out before pain becomes unmanageable. We established the importance of timely post-therapy evaluation to tailor future management strategies effectively. Patient was informed and verbally consented to the use of an ambient scribe for clinic note documentation during this visit. Orders: Orders PT Evaluation and Treatment Today G89.29 - Other chronic pain, M47.816 - Spondylosis without myelopathy or radiculopathy, lumbar region, M54.9 - Dorsalgia, unspecified Medications: New methocarbamol No driving while taking this medication. Do no take with alcohol or other COLLISION TECHNICIAN Depressants 500 mg PO BID PRN 60 tabs 1RF muscle spasm Patient Instructions: - Undergo an updated lower back x-ray as directed. - Attend physical therapy sessions closer to your home in [place]. - Use the new muscle relaxer at bedtime and avoid day-time driving if drowsy. - Continued use of Tylenol and gabapentin as needed for pain management. - Avoid NSAIDs if they upset your stomach. - Follow up immediately after completing physical therapy to reassess pain management plan. - Contact the office if there's no improvement or if pain worsens before the next scheduled visit. Coding Level of Care Code Est Pt Level 4 (42826) Complex EM visit Add On G2211 Diagnoses Lumbar facet arthropathy M47.816 Chronic back pain M54.9; G89.29
[2025-03-15 11:08] VITALS: BP 127/65; PULSE 88; RESP 16; O2SAT 97; BMI 34.8
--- OUTSIDE RECORDS SUMMARY | 2025-03-15 12:06 | XMS_ITS | Encounter Summary ---
Author Organization [employer] Address [address] 7[address] [place] [address] Care Team Providers Care Hand Trucker Name Role Phone Gerry Echavarria MD Primary Care Provide r Encounter Details Date Type Department Care Team ([facility] st Contact Info) Description 10/06/2024 Telephone [facility] MEDICINE [address] [place], [place] [phone] Gerry Echavarria MD [address] [place], [place] [phone] Social History Tobacco Use Types Packs/Day Years [...] Office Visit [facility] MED[facility]INE [address] [place] [address] Gerry Echavarria MD [address] [place] [address] documented as of this encounter Goals Goal [...] documented as of this encounter Care Teams Hand Trucker Relationship Specialty Start Date End Date Gerry Echavarria MD [address] [place] [address] PCP - General Internal Medicine 07/26/14 Theron New Hospit[place] HostDiamond Saw Operator 01/08/24 [facility] 09/28/24 02/12/25 [facility] 12/28/24 documented as of this encounter
--- OUTSIDE RECORDS SUMMARY | 2025-03-15 12:06 | XMS_ITS | Encounter Summary ---
Author Organization [employer] Address [address] [facility] 7t [place] [address] Care Team Providers Care Rose Grading Supervisor Name Role Phone Gerry Echavarria MD Primary Care Provide r Reason for Visit * Reason Comments Med Refill Encounter Details Date Type Department Care Team ([facility] st Contact Info) Description 03/07/2025 Refill [facility] MEDICINE [address] [place], [place] [phone] Mala Williamson, ANP [address] [place] [address] Diarrhea, unspecified type; Irritable bowel syndrome, unspecified [...] [facility] MEDICINE [address] [place] [address] Gerry Echavarria MD [address] [place] [address] documented as of this encounter Goals Goal [...] documented as of this encounter Care Teams Rose Grading Supervisor Relationship Specialty Start Date End Date Gerry Echavarria MD [address] [place] [address] PCP - General Internal Medicine 07/26/14 Theron New Food Service RepresentativeMask Former 01/08/24 [facility] 12/28/24 documented as of this encounter
--- OUTSIDE RECORDS SUMMARY | 2025-03-15 12:06 | XMS_ITS | Encounter Summary ---
Author Organization [employer] Address [address] 7[address] [place] [address] Care Team Providers Care Chief Librarian Circulation Department Name Role Phone Gerry Echavarria MD Primary Care Provide r Reason for Visit * Reason Comments Med Refill Encounter Details Date Type Department Care Team ([facility] st Contact Info) Description 08/18/2023 Refill [facility] MEDICINE [address] [place], [place] [phone] Krystina Haji MD [address] [place], [place] [phone] Mixed anxiety and depressive disorder; Chronic migraine [...] Description 04/18/2025 11:15 AM EDT Office Visit [facility] MEDICINE [address] [place] [address] Gerry Echavarria MD [address] [place] [address] documented as of this encounter Goals Goal [...] documented as of this encounter Care Teams Chief Librarian Circulation Department Relationship Specialty Start Date End Date Gerry Echavarria MD [address] [place] [address] PCP - General Internal Medicine 07/26/14 Theron New [place] WeigherSales Support Representative 01/08/24 [facility] 09/28/24 02/12/25 [facility] 12/28/24 documented as of this encounter
--- OUTSIDE RECORDS SUMMARY | 2025-03-15 12:06 | XMS_ITS | Encounter Summary ---
Author Organization [employer] Address [address] [facility] 7t [place] [address] Care Team Providers Care Blanker Operator Name Role Phone Gerry Echavarria MD Primary Care Provide r Reason for Visit * Reason Onset Date Comments Med Refill 10/11/2024 Encounter Details Date Type Department Care Team ([facility] st Contact Info) Description 10/11/2024 Telephone [facility] MEDICINE [address] [place], [place] [phone] Gerry Echavarria MD [address] [place] [address] Med Refill Social History Tobacco Use Types [...] 10 MG tablet [facility] be sent to: [facility]pharmacy #[id number] [place] [address] - [address] [place] [address] documented in this encounter Plan of Treatment Upcoming Encounters Date Type Department Care Team (Late st Contact Info) Description 04/18/2025 11:15 AM EDT Office Visit [facility] MEDICINE [address] [place] [address] Gerry Echavarria MD [address] [place] [address] documented as of this encounter Goals Goal [...] documented as of this encounter Care Teams Blanker Operator Relationship Specialty Start Date End Date Gerry Echavarria MD [address] [place] [address] PCP - General Internal Medicine 07/26/14 Theron New Dough MolderPaper Baling Machine Operator 01/08/24 [facility] 09/28/24 02/12/25 [facility] 12/28/24 documented as of this encounter
--- OUTSIDE RECORDS SUMMARY | 2025-03-15 12:06 | XMS_ITS | Encounter Summary ---
Author Organization [employer] Address [address] [facility] 7t [place] [address] Care Team Providers Care Campus Chaplain Name Role Phone Gerry Echavarria MD Primary Care Provide r Reason for Visit * Reason Comments Med Refill Encounter Details Date Type Department Care Team ([facility] st Contact Info) Description 09/10/2023 Refill [facility] [address] [place], [place] [phone] Wendie Sandoval, [facility] [address] [place] [address] Social History Tobacco Use Types Packs/Day Years [...] Office Visit [facility] MED[facility]INE [address] [place] [address] Gerry Echavarria MD [address] [place], [place] [phone] documented as of this encounter Goals Goal [...] documented as of this encounter Care Teams Campus Chaplain Relationship Specialty Start Date End Date Gerry Echavarria MD [address] [place] [address] PCP - General Internal Medicine 07/26/14 Theron New Size PainterSafety Equipment Testing Specialist 01/08/24 [facility] 09/28/24 02/12/25 [facility] 12/28/24 documented as of this encounter
--- OUTSIDE RECORDS SUMMARY | 2025-03-15 12:06 | XMS_ITS | Clinical Summary ---
Author Organization [address] [facility] Address [address] [place] [address] Phone Care Team Providers Care Job Setter Name Role Phone Gerry Lopez MD Primary [...] PM EDT Office Visit Orthopedic Surgery - [address] [phone] Juan Frey, DPM Synovitis and [...] PM EDT Office Visit Orthopedic Surgery - [place] [address] [phone] Juan Frey, POORNIMA [address] [address] Health Maintenance Due Date Last Done Comments [...] Informed Consent: ??Site: ??Foot ligament tendon Result [facility] Juan Frey DPM IN CLINIC/BEDSIDE ORDERAB LES Final Result * Annual BMP Blood Test (04/09/2024) [facility] Annual BMP Blood Test abstracted Result [facility] Provider HEALTH MAINTENANCE Final Result * FIT-DNA (Cologuard) (12/18/2023) [facility] Colorectal Cancer Screening: FIT-DNA (Cologuard) no interpretation , abstracted Result [facility] Provider HEALTH MAINTENANCE Final Result * Lipid panel (06/03/2023) [facility] Triglycerides 0 mg/dL Comment:no interpretation Cholesterol 0 mg/dL Comment:no interpretation HDL 0 mg/dL Comment:no interpretation LDL Cholesterol 0 mg/dL Comment:no interpretation Blood Venous blood specimen / Unknown Result [facility] Provider LAB BLOOD ORDERABLES Judy l Result * Hemoglobin A1c (05/21/2022) [facility] Hemoglobin A1C 0.0 % Comment:no interpretation Blood Venous blood specimen / Unknown Result [facility] Provider LAB BLOOD ORDERABLES Judy l Result * Cervical Cancer Screening: HPV (04/17/2021) [facility] Cervical Cancer Screening: HPV no interpretation , abstracted Result [facility] Provider HEALTH MAINTENANCE Final Result from Last 3 Months or Most Recently Relevant to Health Maintenance Insurance MEDICAID - [place] Care Teams Job Setter Relationship Specialty Start Date End Date Gerry Lopez MD [address] [place] [address] [place] [phone] PCP - General 07/29/22
--- OUTSIDE RECORDS SUMMARY | 2025-03-15 12:06 | XMS_ITS | Encounter Summary ---
Author Organization [employer] Address [address] [place] [address] Care Team Providers Care Game Author Name Role Phone Gerry Echavarria MD Primary Care Provide r Reason for Visit * Reason Comments Med Refill Encounter Details Date Type Department Care Team ([facility] st Contact Info) Description 08/18/2023 Refill [facility] [address] [address] [place], [place] COVID-19 Social History Tobacco [...] 04/18/2025 11:15 AM EDT Office Visit [facility] MEDICINE 230 [place], [place] [phone] Gerry Echavarria MD [address] [place], [place] [phone] documented as of this encounter Goals Goal [...] documented as of this encounter Care Teams Game Author Relationship Specialty Start Date End Date Gerry Echavarria MD [address] [place] [address] PCP - General Internal Medicine 07/26/14 Theron New Wireline OperatorLearning Support Assistant 01/08/24 [facility] 09/28/24 02/12/25 [facility] 12/28/24 documented as of this encounter
--- OUTSIDE RECORDS SUMMARY | 2025-03-15 12:06 | XMS_ITS | Encounter Summary ---
Author Organization [employer] Address [address] [facility] [address] 7t [place] [address] Care Team Providers Care Inside Sales Executive Name Role Phone Gerry Echavarria MD Primary Care Provide r Reason for Visit * Reason Comments Med Refill Encounter Details Date Type Department Care Team ([facility] st Contact Info) Description 08/08/2023 Refill [facility] MED[facility]INE 230 [place], [place] [phone] Mala Williamson, ANP [address] [place] [address] Vertigo; Diarrhea, unspecified type; Irritable bowel syndrome, [...] 11:15 AM EDT Office Visit [facility] MED[facility]INE [address] [place], [place] [phone] Gerry Echavarria MD [address] [place], [place] [phone] documented as of this encounter Goals Goal [...] documented as of this encounter Care Teams Inside Sales Executive Relationship Specialty Start Date End Date Gerry Echavarria MD [address] [place] [address] PCP - General Internal Medicine 07/26/14 Theron New Smart Energy SpecialistCommercial Real Estate Attorney 01/08/24 [facility] 09/28/24 02/12/25 [facility] 12/28/24 documented as of this encounter
--- OUTSIDE RECORDS SUMMARY | 2025-03-15 12:06 | XMS_ITS | Encounter Summary ---
Author Organization [employer] Address [address]t [place] [address] Care Team Providers Care Enamel Machine Operator Name Role Phone Gerry Echavarria MD Primary Care Provide r Reason for Visit * Reason Comments Med Refill Encounter Details Date Type Department Care Team ([facility] st Contact Info) Description 09/20/2023 Refill [facility] [place] 230 [place], [place] [phone] [facility] 230 [place] [address] Folliculitis Social History Tobacco Use Types Packs/Day [...] your housing situation today? I have bird cháevz 08/18/[address] you li [...] Office Visit [facility] MEDICINE [address] [place] [address] Gerry Echavarria MD [address] [place] [address] documented as of this encounter Goals Goal [...] documented as of this encounter Care Teams Enamel Machine Operator Relationship Specialty Start Date End Date Gerry Echavarria MD [address] [place] [address] PCP - General Internal Medicine 07/26/14 Theron New Annual Giving DirectorHand Crown Pouncer 01/08/24 [facility] 09/28/24 02/12/25 [facility] 12/28/24 documented as of this encounter
--- OUTSIDE RECORDS SUMMARY | 2025-03-15 12:06 | XMS_ITS | Encounter Summary ---
Author Organization [employer] Address [address] [facility] 7t [place] [address] Care Team Providers Care Replanting Machine Crewman Name Role Phone Gerry Echavarria MD Primary Care Provide r Reason for Visit * Reason Comments Med Refill Encounter Details Date Type Department Care Team ([facility] st Contact Info) Description 08/18/2023 Refill [facility] MEDICINE [address] [place], [place] [phone] Wendie Sandoval, [facility] [address] [place] [address] Social History Tobacco Use Types Packs/Day Years [...] EDT Office Visit [facility] MED[facility] [address] [place] [address] Gerry Echavarria MD [address] [place], [place] [phone] documented as of this encounter Goals Goal [...] documented as of this encounter Care Teams Replanting Machine Crewman Relationship Specialty Start Date End Date Gerry Echavarria MD [address] [place] [address] PCP - General Internal Medicine 07/26/14 Theron New Strip PickerLumber Driver 01/08/24 [facility] 09/28/24 02/12/25 [facility] 12/28/24 documented as of this encounter
--- OUTSIDE RECORDS SUMMARY | 2025-03-15 12:06 | XMS_ITS | Encounter Summary ---
Author Organization [employer] Address [address] [place] [address] Care Team Providers Care Food Technologist Name Role Phone Gerry Echavarria MD Primary Care Provide r Reason for Visit * Reason Comments Med Refill Encounter Details Date Type Department Care Team ([facility] st Contact Info) Description 08/25/2023 Refill [facility] [address], [place] [phone] Wendie Sandoval, [facility] [address] [place] [address] Social History Tobacco Use Types Packs/Day Years [...] 11:15 AM EDT Office Visit [facility] [address] [place] [address] Gerry Echavarria MD [address], [place] [phone] documented as of this encounter Goals Goal [...] documented as of this encounter Care Teams Food Technologist Relationship Specialty Start Date End Date Gerry Echavarria MD [address] [place] [address] PCP - General Internal Medicine 07/26/14 [employer] 01/08/24 [facility] 09/28/24 02/12/25 [facility] [employer] [facility] 12/28/24 documented as of this encounter
--- OUTSIDE RECORDS SUMMARY | 2025-03-15 12:06 | XMS_ITS | Clinical Summary ---
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 check patient'sheight/weight. Estimated Glomerular Filt Rate >60 [facility] Comment:Chronic Kidney Disea se: Estimated GFR < 60 mL/min/1.32s3Wrjsyr Kidney Disease: Estimated GFR < 15 mL/min/1.73m2 Glucose 177(H) 60 - 115 mg/dL [facility] Calcium 9.5 8.4 - 10.2 mg/dL [facility] 01/19/2025 12:1 0 PM EDT 01/19/2025 12:13 PM EDT us Generic External Data Provider LAB BLOOD ORDERAB LES Final Result Performing Organization Address City/[facility] Co de Phone Number [facility] [address] [place] [phone] * TSH with Reflex to Free T4 (01/19/2025 10:23 AM EDT) Only the most recent of2 resultswithin the time period is included. TSH reflex Free T4 3.67 0.32 - 4.0 uIU/mL [facility] Blood Venous blood specimen / Unknown 01/19/2025 10:23 AM EDT 01/19/2025 11:21 AM EDT us Gerry Whitehead MD LAB BLOOD ORDERABLES Final Result [facility] [address] [place] [phone] * Albumin, Random Urine W/Creatinine (01/19/2025 10:23 AM EDT) Creatinine, Urine 258.90 mg/dL [facility] Microalbumin Urine 64.0 mg/L [facility] Microalbum Creatinine Ratio Ur 24.7 <30 ug/mg cr [facility] Comment:Albumin/Creatinine R atio Reference Ranges: Normal: < 30 ug/mg creatinine Microalbuminuria: 30 - 300 ug/mg creatinineClinical Albuminuria: > 300 ug/mg creatinine Urine (Urine, Random) 01/19/2025 10:23 AM EDT 01/19/2025 11:59 AM EDT Gerry Whitehead MD LAB URINE ORDERABLES Final Result Performing Organization Address [facility] Co de Phone Number [facility] [address] [place] [phone] * (ABNORMAL) POCT urinalysis dipstick manually [...] EDT 01/17/2025 6:33 PM EDT Comment:UACC Narrative [facility] - 01/19/2025 11:46 AM EDT Lactobacillus species Quant 10,000 to 50,000 cfu/mL Specimen Source: Urine clean catch Krystina Haji MD LAB MICROBIOLOGY - GENERAL ORDER BERNA Edited Result - Final Performing Organization Address [facility] Co de Phone Number [facility] [address] [place] [phone] * D Dimer High Sensitivity (01/12/2025 3:45 PM EDT) Pathologist [facility] D Dimer High Sensitivity 165 NG/ML [facility] Comment:D-DIMER HS REFERENCE RANGENote: [...] ORDERAB LES Final Result Performing Organization Address [facility] Co de Phone Number [facility] [address] [place] [phone] * SARS-CoV-2 RNA, Influenza A/B, and RSV RNA, Ql NAAT (01/12/2025 12:10 PM EDT) Influenza A PCR NEGATIVE Negative [facility] Influenza B PCR NEGATIVE Negative [facility] Resp Syncy Virus RNA Qual PCR NEGATIVE Negative [facility] SARS COV2 PCR NEGATIVE [...] use by authorized laboratories.Testing performed on the [employer] GeneXpert utilizingreal-time RT-PCR.All SARS CoV2 and positive influenza A/B results arereported to [facility]. 01/12/2025 12:1 0 PM EDT 01/12/2025 12:18 PM EDT us Generic External Data Provider LAB MICROBIOLOGY - GENERAL ORDERABLES Final Result Performing Organization Address City/State/[facility] Co de Phone Number [facility] [address] [place] [phone] [phone] * XR Chest 2 Views (01/12/2025 11:56 AM EDT) Anatomical Region Laterality Modality Chest Radiographic Angy ging 01/12/2025 11:5 6 AM EDT Narrative 01/12/2025 12:47 PM EDT ? [facility] ?[address] ?[place] [address] ?XRay Report ? Signed ? Patient: Julia Smith ?MR#: ?? [id number] ? : 1975 ?Acct:[id number] ? Age/Sex: 49 / F ?ADM Date: 01/12/25 ? Loc: HO.ED ? Attending Dr: ? Ordering Physician: Kriss Askew ?? Date of Service: 01/12/25 ?? Procedure(s): XR chest 2V ?? Accession Number(s): [id number] ? cc: Aubrie Trinidad MD; Kriss Askew [...] DD/ 1156 ? TD/TT: 01/12/25 1239 ? Medical Orderly: ? Procedure Note Donotstephyinterpreter, Image - 01/12/[address] [address] XRay Report Signed Patient: Julia SmithMR#: [id number] : 1975Acct:[id number] Age/Sex: 49 / FADM Date: 01/12/25 Loc: HO.ED Attending Dr: Ordering Physician: Kriss Askew Date of Service: 01/12/25 Procedure(s): XR chest 2V Accession Number(s): [id number] cc: Aubrie Trinidad MD; Kriss Askew EXAMINATION: [...] Ronquillo MD Signed By: <Electronically signed by Ewdin Ronquillo MD in OV> 01/12/25 1245 DD/ 1156 TD/TT: 01/12/25 1239 Medical Orderly: [facility] External Provider IMG XR PROCEDURES Edited Result - Final * (ABNORMAL) POCT HGB A1C (01/10/2025 9:59 AM EDT) Hemoglobin A1C 6.7(A) 4.0 - 6.0 % QC Media Lot # [id number] Lot# Expiration Date Blood 01/10/2025 9:59 AM EDT Gerry Whitehead MD POINT OF CARE TEST EN TER/EDIT ORDERABLES Final Result * (ABNORMAL) POCT Glucose (01/10/2025 9:56 AM EDT) Pathologist [facility] Glucose Blood, POC 228(A) 60 - 200 mg/dL QC Media Lot # [id number] Lot# Expiration Date Blood Capillary blood specimen / Unknown 01/10/2025 9:56 AM EDT Gerry Whitehead MD POINT OF CARE TEST EN TER/EDIT ORDERABLES Final Result * (ABNORMAL) Lipid Panel, Standard (08/18/2024 11:31 AM EDT) Triglycerides 107 <150 mg/dL [facility] Comment:Desirable Triglyceri de: less than 150 mg/dLBorderline High Triglyceride 150-199 mg/dLHigh Triglyceride: 200-499 mg/dLVery High Triglyceride: greater than or equal to 5OO mg/dL Cholesterol 208(H) <200 mg/dL [facility] Comment:Desirable Cholestero l: less than 200 mg/dLBorderline High Cholesterol: 200-239 mg/dLHigh Cholesterol: greater than 239 mg/dL LDL Cholesterol Calculated 115(H) <100 mg/dL [facility] Comment:Desirable LDL: less than 100 mg/dLNear Optimal/Above Optimal LDL: 110- 129 mg/dLBorderline High LDL: 130-159 mg/dLHigh LDL: 160-189 mg/dLVery High LDL: greater than or equal to 190 mg/dL HDL Cholesterol 72 >40 mg/dL [facility] Comment:Desirable HDL: great er than 40 mg/dL Note: This HDL assay may give artificially low results in patients with liver disease. Blood Venous blood specimen / Unknown 08/18/2024 11:31 AM EDT 08/18/2024 1:14 PM EDT Gerry Whitehead MD LAB BLOOD ORDERABLES Final Result [facility] [address] [place] [phone] [phone] * BI Mammogram Screening Tomosynthesis Bilateral (06/09/2024 12:35 PM EDT) Anatomical Region Laterality Modality Breast Bilateral Mammography 06/09/2024 12:3 5 PM EDT Narrative 07/07/2024 11:45 AM EDT ? [facility] [place] ? [address] ?[place] [address] ? Mammography Report ? Signed ? Patient: Bethany Bedoya,Julia ?MR#: ?? [id number] ? : 1975 ?Acct:[id number] ? Age/Sex: 49 / F ?ADM Date: 06/09/24 ? Loc: HO.MAMMO ? Attending Dr: Aubrie Trinidad MD ? Ordering Physician: Aubrie Trinidad MD ?Results: 1 ?? Negative ? Date of Service: 06/09/24 ?Follow Up: 1 Year From Orig ?? inal Mammogram ? Procedure(s): MM tomosynthesis screening BI ?? Accession Number(s): [id number] ? cc: Aubrie Trinidad MD ? EXAMINATION: [...] DD/ 1235 ? TD/TT: 06/09/24 1250 ? Medical Orderly: ? Procedure Note Cierra, Namrata - 07/07/2024 [place] [facility] [address] [place], [place] [address] Mammography Report Signed Patient: Julia SmithMR#: [id number] : 1975Acct:[id number] Age/Sex: 49 / FADM Date: 06/09/24 Loc: BENEDICTOTomásASIA Attending Dr: Aubrie Trinidad MD Ordering Physician: Aubrie Trinidad MDResults: 1 Negative Date of Service: 06/09/24Follow Up: 1 Year From Orig ina Mammogram Procedure(s): MM tomosynthesis screening BI Accession Number(s): [id number] cc: Aubrie Trinidad MD EXAMINATION: MM SCREENING [...] 07/07/24 1142 DD/ 1235 TD/TT: 06/09/24 1250 Medical Orderly: Aubrie Trinidad MD IM BI PROCEDURES Edited Re sult - Final * Hm Colonoscopy (02/08/2024) Colonoscopy Normal Normal Historical Provider HEALTH MAINTENANCE Final Result * (ABNORMAL) Cologuard?? colon cancer screening (12/18/2023 11:00 AM EST) Cologuard Result Positive( A) Negative 12/27/2023 11:00 AM EST [facility] (CLIA #:[id number]) Comment: POSITIVE TEST RESULT. A positive Cologuard [...] (Jesenia Perez al, N Engl J Med 2014;370(14):0215-7336.) Cologuard may produce a false negative or false positive result (no colorectal cancer or precancerous polyp present at colonoscopy follow up). A negative Cologuard test result does not guarantee the absence of CRC or advanced adenoma (pre-cancer). The current Cologuard screening interval is every 3 years. ([place] Cancer Society and U.S. Multi-Society Task Force). Cologuard performance data in a 10,000 patient pivotal study using colonoscopy as the reference method can be accessed at the following location: www.exactlabs.com/results. Additional description of the Cologuard test process, warnings and precautions can be found at www.cologuard.com. Stool specimen (specimen) 12/18/2023 11:00 AM EST 12/19/2023 1:02 PM EST Gerry Whitehead MD LAB MOLECULAR DIAGNOS TICS ORDERABLES Final Result [facility] (CLIA #:[id number]) [address] [place] [address], * THINPREP PAP (04/17/2021 10:22 AM EDT) Clinical Information: None given [facility] COMMENT SEE COMMENT FOUNDAT[facility] ON [...] historic and ?? current clinical information. ?? Facility Manager Histology : SEE COMMENT [facility] Comment: GSG, CT(ASCP) CT screening location: [address] ??[address] Interpretation/R esult: Negative for intraepithelial lesion or malignancy. [facility] LMP: 03/21/2021 [facility] Prev. BX: NONE GIVEN [facility]OUNDAT[facility] N LAB SYSTEM Prev. PAP: NIL 03/2015 HPV - FO [facility] SOURCE: Cervix [facility] Statement Of Adequacy: SEE COMMENT [facility] Comment: Satisfactory for evaluation. Endocervical/transformation zone component present. 04/17/2021 10:2 2 AM EDT us Wendie Sandoval CNM LAB PATHOLOGY ORDERABLES Final Result [facility] [address] [place] [address], * HPV mRNA E6/E7 (04/17/2021 10:22 AM EDT) HPV nRNA E6/E7 Not Detected Not Detected [facility] Comment: Methodology: Milliner Helper-Mediated Amplification This assay detects E6/E7 viral messenger RNA (mRNA) from 14 high-risk HPV types (16,18,31,33,35,39,45,51,52,56,58,59,66,68). ? The analytical performance characteristics of this assay have been determined by [employer]. The modifications have not been cleared or approved by the FDA. This assay has been validated pursuant to the CLIA regulations and is used for clinical purposes. ?? For additional information, please refer to http://education.[employer]faq/UMX182h0 (This link if provided for information/ educational purposes only.) 04/17/2021 10:2 2 AM EDT Wendie DONG LAB BLOOD ORDERABLES Judy connolly Result [facility] [address] from Last 3 Months or Most Recently Relevant to Health Maintenance [place] [address] [place] [address] C3 Care Teams Cdl Team Truck Driver Relationship Specialty Start Date End Date Gerry Echavarria MD [address] [place] [phone] PCP - General Internal Medicine 07/26/14 Theron New Erection Shop SupervisorRubber Compounder Supervisor 01/08/24 [employer] 12/28/24
--- OUTSIDE RECORDS SUMMARY | 2025-03-15 12:06 | XMS_ITS | Encounter Summary ---
Author Organization [employer] Address [address] [place] [address] Care Team Providers Care Weaver Apprentice Name Role Phone Gerry Echavarria MD Primary Care Provide r Reason for Visit * Reason Comments Med Refill Encounter Details Date Type Department Care Team ([facility] st Contact Info) Description 08/08/2023 Refill [facility] [address] [place], [place] [phone] Name, MD Wai [address] [place] [address] Mixed anxiety and depressive disorder Social History [...] Description 04/18/2025 11:15 AM EDT Office Visit [facility] [address] [place] [address] Gerry Echavarria MD [address] [place] [address] documented as of this encounter Goals Goal [...] documented as of this encounter Care Teams Weaver Apprentice Relationship Specialty Start Date End Date Gerry Echavarria MD [address] [place] [address] PCP - General Internal Medicine 07/26/14 Theron New Java ArchitectBudget Director 01/08/24 [facility] 09/28/24 02/12/25 [employer] 12/28/24 documented as of this encounter
--- OUTSIDE RECORDS SUMMARY | 2025-03-15 12:06 | XMS_ITS | Encounter Summary ---
Author Organization [employer] Address [address] [place] [address] Care Team Providers Care Cobbler Upper Name Role Phone Gerry Echavarria MD Primary Care Provide r Reason for Visit * Reason Comments Med Refill Encounter Details Date Type Department Care Team ([facility] st Contact Info) Description 09/20/2023 Refill [facility] [address] [place], [place] [phone] Mala Williamson, ANP [address] [place] [address] Diarrhea, unspecified type; Irritable bowel syndrome, unspecified [...] Visit [facility] [address] [place] [address] Geryr Echavarria MD [address] [place] [address] documented as of this encounter Goals Goal [...] documented as of this encounter Care Teams Cobbler Upper Relationship Specialty Start Date End Date Gerry Echavarria MD [address] [place] [phone] PCP - General Internal Medicine 07/26/14 Theron New Lab InstructorMerchandise Appraiser 01/08/24 [facility] 09/28/24 02/12/25 [employer] 12/28/24 documented as of this encounter
--- OUTSIDE RECORDS SUMMARY | 2025-03-15 12:06 | XMS_ITS | Encounter Summary ---
Author Organization [employer] Address [address] 7t [place] [address] Care Team Providers Care Qa Software Test Engineer Name Role Phone Gerry Echavarria MD Primary Care Provide r Reason for Visit * Reason Comments Med Refill Encounter Details Date Type Department Care Team ([facility] st Contact Info) Description 09/10/2023 Refill [facility] [address] [place], [place] [phone] Gerry Echavarria MD [address] [place], [place] [phone] Social History Tobacco Use Types Packs/Day Years [...] Office Visit [facility] [address] [place], [place] [phone] Gerry Echavarria MD [address] [place] [address] documented as of this encounter Goals Goal [...] documented as of this encounter Care Teams Qa Software Test Engineer Relationship Specialty Start Date End Date Gerry Echavarria MD [address] [place] [address] PCP - General Internal Medicine 07/26/14 Theron New Zigzag AppliquerClinical Dietitian 01/08/24 [facility] 09/28/24 02/12/25 [employer] 12/28/24 documented as of this encounter
--- OUTSIDE RECORDS SUMMARY | 2025-03-15 12:06 | XMS_ITS | Encounter Summary ---
Author Organization [employer] Address [address] [place] [address] Care Team Providers Care Assembly Press Operator Name Role Phone Gerry Echavarria MD Primary Care Provide r Reason for Visit * Reason Comments Med Refill Encounter Details Date Type Department Care Team ([facility] Contact Info) Description 09/20/[address] [facility] [address] [place] [address] Amalia Ta MD [address] [place] [address] Social History Tobacco Use Types Packs/Day Years [...] 04/18/2025 11:15 AM EDT Office [address] [facility] [address] [place] [address] Gerry Echavarria MD [address] [place], [place] [phone] documented as of this encounter Goals Goal [...] documented as of this encounter Care Teams Assembly Press Operator Relationship Specialty Start Date End Date Gerry Echavarria MD [address] [place] [address] PCP - General Internal Medicine 07/26/14 Theron New Green PipefitterIrb Compliance Coordinator 01/08/24 [facility] 09/28/24 02/12/25 [employer] 12/28/24 documented as of this encounter
--- OUTSIDE RECORDS SUMMARY | 2025-03-15 12:06 | XMS_ITS ---
Author Organization [facility] Address [address] [place] [phone] Care Team Providers Care Coffee Taster Name Role Phone Shantell Whitehead MD, Gerry Primary Care Provide r Itz Olivo Jr, Wesley Unavailable [phone] REASON FOR VISIT results of colonoscopy Medications [...] Problem Status W/U Status Risk Notes Problem [id number] H. pylori infection (A04.8) Active confirmed Encounters Encounter Location Date Provider Diagnosis [facility] [address] [place] [phone] 02/24/2024 Wesley Olivo Jr H. pylori infection [...] Provider Name:Wesley ferrer Jr, 04/10/2025 10:40:00 AM, [address] [place] [address], [address], [place], [address], Progress Notes * CHERELLE FLOREZDOB: 6 (48 yo F)Acc No.[id number]:02/24/2024 Patient:?CHERELLE FLOREZ :1975???Age:48 Y???Sex:Female Address:[address] [place] [address] [place], [address] * Refills? Start Omeprazole Capsule Delayed Release, [...] true * Date:? Generated for Ada thompson/Tiff/eTransmitting on:?03/15/2025 12:06 PM EDT
--- OUTSIDE RECORDS SUMMARY | 2025-03-15 12:07 | XMS_ITS | Encounter Summary ---
Author Organization [employer] Address [address] [facility] 7t [place] [address] Care Team Providers Care Finger Cobbler Name Role Phone Gerry Echavarria MD Primary Care Provide r Reason for Visit * Reason Onset Date Comments triage 12/26/2022 Encounter Details Date Type Department Care Team ([facility] st Contact Info) Description 12/26/2022 Telephone [facility] [address] [place], [place] [phone] Gerry Echavarria MD [address] [place] [address] triage Social History Tobacco Use Types Packs/Day [...] accepted this outcome Please contact pt at [phone] documented in this encounter Plan of Treatment Upcoming Encounters Date Type Department Care Team (Late st Contact Info) Description 04/18/2025 11:15 AM EDT Office Visit [facility] [address] [facility] [place] [address] Gerry Echavarria MD [address] [place] [address] documented as of this encounter Goals Goal [...] on filedocumented in this encounter Care Teams Finger Cobbler Relationship Specialty Start Date End Date Gerry Echavarria MD [address] [facility] [place] [address] PCP - General Internal Medicine 07/26/14 Theron New Paper Bag Making MachinistNursing Program Manager 01/08/24 [facility] 09/28/24 02/12/25 [employer] [facility] [employer] 12/28/24 documented as of this encounter
--- OUTSIDE RECORDS SUMMARY | 2025-03-15 12:07 | XMS_ITS | Encounter Summary ---
Author Organization [employer] Address 75 [facility] 7t [place] [address] Care Team Providers Care Contract Specialist Name Role Phone Gerry Echavarria MD Primary Care Provide r Reason for Visit * Reason Comments Med Refill Encounter Details Date Type Department Care Team ([facility] st Contact Info) Description 03/24/2024 Refill [facility] 230 [place], [place] [phone] Name, MD Wai 230 [place] [address] Seasonal allergies Social History Tobacco Use Types [...] Description 04/18/2025 11:15 AM EDT Office Visit [facility] 230 [place] [address] Gerry Echavarria MD 230 [place] [address] documented as of this encounter Goals Goal [...] as of this encounter Care Teams Contract Specialist Relationship Specialty Start Date End Date Gerry Echavarria MD 230 [place] [address] PCP - General Internal Medicine 07/26/14 Theron New Mold CheckerDisplay Fabrication Supervisor 01/08/24 [facility] 09/28/24 02/12/25 [facility] 12/28/24 documented as of this encounter
--- OUTSIDE RECORDS SUMMARY | 2025-03-15 12:07 | XMS_ITS | Encounter Summary ---
Author Organization [employer] Address 75 [facility] 7t [place] [address] Care Team Providers Care Front Worker Name Role Phone Gerry Echavarria MD Primary Care Provide r Reason for Visit * Reason Onset Date Comments Med Refill 11/07/2024 Encounter Details Date Type Department Care Team (Late st Contact Info) Description 11/07/2024 Refill [facility] 230 [place], [place] [phone] Name, MD Wai 230 [place] [address] Fibromyalgia Social History Tobacco Use Types Packs/Day [...] Description 04/18/2025 11:15 AM EDT Office Visit [facility] [address] [place] [address] Gerry Echavarria MD 230 [place] [address] documented as of this encounter Goals Goal [...] documented as of this encounter Care Teams Front Worker Relationship Specialty Start Date End Date Gerry Echavarria MD 230 [place] [address] PCP - General Internal Medicine 07/26/14 Theron New Assistant Elementary TeacherWeaver Wire Loom 01/08/24 [facility] 09/28/24 02/12/25 [facility] 12/28/24 documented as of this encounter
--- OUTSIDE RECORDS SUMMARY | 2025-03-15 12:07 | XMS_ITS | Encounter Summary ---
Author Organization [employer] Address [address] [facility] [address] 7t [place] [address] Care Team Providers Care Electrical Plumbing Supervisor Name Role Phone Gerry Echavarria MD Primary Care Provide r Reason for Visit * Reason Comments Med Refill Encounter Details Date Type Department Care Team ([facility] st Contact Info) Description 11/13/2023 Refill [facility] 230 [place], [place] [phone] Krystina Haji MD 230 [place], [place] [phone] Chronic migraine without aura without status migrainosus, [...] EDT Office Visit [facility] 230 [place] [address] Gerry Echavarria MD 230 [place] [address] documented as of this encounter Goals Goal [...] as of this encounter Care Teams Electrical Plumbing Supervisor Relationship Specialty Start Date End Date Gerry Echavarria MD [address] [place] [address] PCP - General Internal Medicine 07/26/14 Theron New Digital Marketing ConsultantCarbon Plant Grinder 01/08/24 [facility] 09/28/24 02/12/25 [facility] 12/28/24 documented as of this encounter
--- OUTSIDE RECORDS SUMMARY | 2025-03-15 12:07 | XMS_ITS | Encounter Summary ---
Author Organization [employer] Address 75 [facility] 7t [place] [address] Care Team Providers Care Rn Training Name Role Phone Gerry Echavarria MD Primary Care Provide r Reason for Visit * Reason Onset Date Comments Med Refill 11/23/2024 Encounter Details Date Type Department Care Team ([facility] st Contact Info) Description 11/23/[address] [facility] 230 [place], [place] [phone] Gerry Echavarria MD 230 [place] [address] Med Refill Social History Tobacco Use Types [...] : FreeStyle lancets To be sent to: [facility]/pharmacy #[id number] documented in this encounter Plan of Treatment Upcoming Encounters Date Type Department Care Team (Late st Contact Info) Description 04/18/2025 11:15 AM EDT Office Visit [facility] 230 [place], [place] [phone] Gerry Echavarria MD 230 [place] [address] documented as of this encounter Goals Goal [...] as of this encounter Care Teams Rn Training Relationship Specialty Start Date End Date Gerry Echavarria MD [address] [place] [address] PCP - General Internal Medicine 07/26/14 Theron New Funeral Home AssistantProvider Relations Specialist 01/08/24 [facility] 09/28/24 02/12/25 [facility] 12/28/24 documented as of this encounter
--- OUTSIDE RECORDS SUMMARY | 2025-03-15 12:07 | XMS_ITS | Encounter Summary ---
Author Organization [employer] Address [address] [facility] [address] 7t [place] [address] Care Team Providers Care Cotton Opener Name Role Phone Gerry Echavarria MD Primary Care Provide r Reason for Visit * Reason Comments Med Refill Encounter Details Date Type Department Care Team ([facility] st Contact Info) Description 09/22/2023 Refill [facility] 230 [place], [place] [phone] Mala Williamson, ANP 230 [place] [address] Diarrhea, unspecified type; Irritable bowel syndrome, unspecified [...] 04/18/2025 11:15 AM EDT Office Visit [facility] 230 [place] [address] Gerry Echavarria MD 230 [place] [address] documented as of this encounter Goals Goal [...] documented as of this encounter Care Teams Cotton Opener Relationship Specialty Start Date End Date Gerry Echavarria MD [address] [place] [address] PCP - General Internal Medicine 07/26/14 hTeron New Traveling Repair AccountantSlitter Creaser Slotter Helper 01/08/24 [facility] 09/28/24 02/12/25 [facility] 12/28/24 documented as of this encounter
--- OUTSIDE RECORDS SUMMARY | 2025-03-15 12:07 | XMS_ITS | Patient Health Record ---
Author Organization [facility] Address [address] [place] [address] Care Team Providers Care Mobile Designer Name Role Phone Shantell Whitehead MD, Gerry [...] Provider Speciality Internal M edicine Referred Organization [facility] Referred Provider Wesley Gibson Jr Referred Address [address] [facility],[address],[place], [place],[address],[place] Referred Provider Specialty Gastroentero logy General Notes Zuleyka Thornton 2024 01:30:07 PM >REQUESTED A [place] REFERRAL FROM [facility] FOR VISIT WITH DR GIBSON ON [...] Problem Status W/U Status Risk Notes Problem 768926898 Abnormal finding s in stool (R19.5) Active confirmed Problem 037574321 H. pylori infection (A04.8) Active confirmed Problem 620506143 Gastroesophageal reflux disease, unspecified whether esophagitis present (K21.9) Active confirmed Problem Gastroesophageal reflux disease (079624660) Chronic GERD (K21.9) Active confirmed Plan Of Treatment Pending Test Test Name Order Date H PYLORI AG, STOOL 02/24/2024 Future Test Test Name Order Date UPPER GI ENDOSCOPY 05/02/2015 UPPER GI ENDOSCOPY 01/13/2024 COLONOSCOPY 01/13/2024 Next Appt Details Provider Name:Wesley ferrer , 04/10/2025 10:40:00 AM, [address] [place] [address], [address], [place], [address], Insurance Providers Payer Name Payer Address Payer Phone Subscriber Number Group Number Insured Name Patient Relationship to Insured Coverage Start Date Coverage End Date MEDICAID OF [facility] [address] [place] [address] [id number] CHERELLE FLOREZ Self - patient is the insured Medical (General) History Medical History History ICD Code esophageal reflux, EGD 05/16, no [place]' s esophagus or H. pylori. Headaches Allergic rhinitis Insomnia Fibromyalgia Osteoarthritis Diabetes mellitus type 2 Surgical History Surgery Date(Month/Year) tonsillectomy tubal ligation
--- OUTSIDE RECORDS SUMMARY | 2025-03-15 12:07 | XMS_ITS ---
Author Organization [facility] Address [address] [facility] [address] [place] [address] Care Team Providers Care State Game Warden Name Role Phone Shantell Whitehead MD, Gerry Primary Care Provide r Itz Olivo Jr, Wesley Unavailable [phone] REASON FOR VISIT gerd,abn findings in stool Problems Problem Type SNOMED Code ICD Code Onset Dates Problem Status W/U Status Risk Notes Problem Gastroesophageal reflux disease (772728026) Chronic GERD (K21.9) Active confirmed Encounters Encounter Location Date Provider Diagnosis [facility] [address] [place] [phone] 02/12/2024 Wesley Olivo Jr Abnormal findings in [...] Name:Wesley ferrer Jr, 04/10/2025 10:40:00 AM, [address], [address], [place], [address], Progress Notes * FLOREZCHERELLE BEANDOB: 6 (50 yo F)Acc No.[id number]:02/12/2024 EGD and COL/MAC Patient:?LEISA FLOREZARIS Provider:?Wesley Olivo MD :1975???Age:48 Y???Sex:Female D ate:02/12/2024 Address: [place], [place] Pcp:Gerry flores MD Subjective: * Chief Complaints: * ???1. Gerd,abn findings in s tool. * Medical History:? Objective: * Vitals:? Assessment: * Assessment: 1.?Abnormal findings in stoo l - R19.5 (Primary)???2.?Colon polyps - K63.5???3.?Chronic GERD - K21.9??? Plan: * Treatment: * Procedure Codes:?33159 LESIO N REMOVAL COLONOSCOPY, 26996 UPPER GI ENDOSCOPY, BIOPSY * * The named appointment provid er may or may not be the originator of this progress note, and it is not deemed complete until electronically signed by the appointment provider. Sign off status: Pending * Provider:?Wesley Olivo MD Date:?0 02/12/2024 Generated for Ada thompson/Tiff/eTransmitting on:?03/15/2025 12:07 PM EDT
--- OUTSIDE RECORDS SUMMARY | 2025-03-15 12:07 | XMS_ITS | Encounter Summary ---
Author Organization [employer] Address [address] [facility] [address] 7t [place] [address] Care Team Providers Care Caddy Packer Name Role Phone Gerry Echavarria MD Primary Care Provide r Reason for Visit * Reason Onset Date Comments Order 09/18/2023 Encounter Details Date Type Department Care Team ([facility] st Contact Info) Description 09/18/2023 Telephone [facility] 230 [place], [place] [phone] Gerry Echavarria MD 230 [place] [address] Order Social History Tobacco Use Types Packs/Day [...] and video instructions. Please contact pt at [phone] Angolan Speaker TC placed with ALTHIAer ID # [id number]. Pt answered the phone and hung up on conduit bender, called placed again and a message was left in Angolan for her to contact the [facility]. I do not see anything in [...] and video instructions. Please contact pt at [phone] Angolan Speaker documented in this encounter Plan of Treatment Upcoming Encounters Date Type Department Care Team ([facility] st Contact Info) Description 04/18/2025 11:15 AM EDT Office Visit [facility] [address] [place] [address] Gerry Echavarria MD 230 [place] [address] documented as of this encounter Goals Goal [...] documented as of this encounter Care Teams Caddy Packer Relationship Specialty Start Date End Date Gerry Echavarria MD 230 [place] [address] PCP - General Internal Medicine 07/26/14 Theron New News Production AssistantHigh School Music Teacher 01/08/24 [facility] 09/28/24 02/12/25 [facility] 12/28/24 documented as of this encounter
--- OUTSIDE RECORDS SUMMARY | 2025-03-15 12:07 | XMS_ITS | Encounter Summary ---
Author Organization [employer] Address [address] [facility] 7t [place] [address] Care Team Providers Care Box Finisher Name Role Phone Gerry Echavarria MD Primary Care Provide r Encounter Details Date Type Department Care Team ([facility] Contact Info) Description 04/13/2023 Abstract [facility] 230 [place], [place] [phone] Gerry Echavarria MD 230 [place] [address] Social History Tobacco Use Types Packs/Day Years [...] Office Visit [facility] [address] [place] [address] Gerry Echavarria MD [address] [place] [address] documented as of this encounter Goals Goal [...] documented as of this encounter Care Teams Box Finisher Relationship Specialty Start Date End Date Gerry Echavarria MD 230 [place] [address] PCP - General Internal Medicine 07/26/14 Theron New Documentation SupervisorPolysilicon Preparation Worker 01/08/24 [facility] 09/28/24 02/12/25 [facility] 12/28/24 documented as of this encounter
--- OUTSIDE RECORDS SUMMARY | 2025-03-15 12:07 | XMS_ITS | Encounter Summary ---
Author Organization [employer] Address [address] [facility] 7t [place] [address] Care Team Providers Care Cloud Infrastructure Architect Name Role Phone Gerry Echavarria MD Primary Care Provide r Reason for Visit * Reason Comments Med Refill Encounter Details Date Type Department Care Team ([facility] st Contact Info) Description 09/20/2023 Refill [facility] 230 [place], [place] [phone] Tracey Leyva MD 230 [place], [place] [phone] Social History Tobacco Use Types Packs/Day Years [...] EDT Office Visit [facility] [address] [place] [address] Gerry Echavarria MD 230 [place], [place] [phone] documented as of this encounter Goals Goal [...] documented as of this encounter Care Teams Cloud Infrastructure Architect Relationship Specialty Start Date End Date Gerry Echavarria MD 230 [place] [address] PCP - General Internal Medicine 07/26/14 Theron New Kitchen Steward/StewardessJavascript Application Developer 01/08/24 [facility] 09/28/24 02/12/25 [facility] 12/28/24 documented as of this encounter
--- OUTSIDE RECORDS SUMMARY | 2025-03-15 12:07 | XMS_ITS | Encounter Summary ---
Author Organization [employer] Address 75 [facility] 7t [place] [address] Care Team Providers Care Manager Pricing Name Role Phone Gerry Echavarria MD Primary Care Provide r Reason for Visit * Reason Comments Med Refill Encounter Details Date Type Department Care Team ([facility] st Contact Info) Description 09/22/2023 Refill [facility] 230 [place], [place] [phone] Tracey Leyva MD 230 [place], [place] [phone] Social History Tobacco Use Types Packs/Day Years [...] 11:15 AM EDT Office Visit [facility] 230 [place] [address] Gerry Echavarria MD 230 [place], [place] [phone] documented as of this encounter Goals Goal [...] as of this encounter Care Teams Manager Pricing Relationship Specialty Start Date End Date Gerry Echavarria MD 230 [place] [address] PCP - General Internal Medicine 07/26/14 Theron New Paint Grinder Stone MillConveyor Feeder Offbearer 01/08/24 [facility] 09/28/24 02/12/25 [facility] 12/28/24 documented as of this encounter
--- OUTSIDE RECORDS SUMMARY | 2025-03-15 12:07 | XMS_ITS ---
Author Organization [facility] Address [address] [facility] [address] [place] [address] Care Team Providers Care French Drawer Name Role Phone Shantell Whitehead MD, Gerry Primary Care Provide linda Olivo Jr, Wesley Unavailable [phone] REASON FOR VISIT bowel prep Medications Medication [...] Active Encounters Encounter Location Date Provider Diagnosis [facility] [address] [place] [address] 01/13/2024 Wesley Olivo Jr Plan Of Treatment [...] Provider Name:Wesley ferrer Jr, 04/10/2025 10:40:00 AM, [address] [place] [address], [address], [place], [address], Progress Notes * CHERELLE FLOREZDOB: 6 (48 yo F)Acc No.[id number]:01/13/2024 Patient:?CHERELLE FLOREZ :1975???Age:48 Y???Sex:Female Address:[address] [place] [address], [place] [address] * Refills? Start MiraLax (colon prep), 8.3 [...] true * Date:? Generated for Ada thompson/Tiff/Himanshuitting on:?03/15/2025 12:06 PM EDT
--- OUTSIDE RECORDS SUMMARY | 2025-03-15 12:07 | XMS_ITS | Encounter Summary ---
Author Organization [employer] Address 75 [facility] 7t [place] [address] Care Team Providers Care Primary Care Provider Name Role Phone Gerry Echavarria MD Primary Care Provide r Reason for Visit * Reason Onset Date Comments Med Refill 12/30/2022 Encounter Details Date Type Department Care Team ([facility] st Contact Info) Description 12/30/2022 Telephone [facility] 230 [place], [place] [phone] Gerry Echavarria MD 230 [place] [address] Med Refill Social History Tobacco Use Types [...] no hx of being on meclizine in [employer] or [employer] * Telephone Encounter - Evelio Guevara - 12/30/2022 1:02 PM EST Tc from pt requesting a Script for Meclazine that helps pt with her ongoing lightheadedness. Please contact pt at [phone] documented in this encounter Plan of Treatment Upcoming Encounters Date Type Department Care Team (Late st Contact Info) Description 04/18/2025 11:15 AM EDT Office Visit [facility] 230 [place], [place] [phone] Gerry Echavarria MD 230 [place], [place] [phone] documented as of this encounter Goals Goal [...] giddiness documented in this encounter Care Teams Primary Care Provider Relationship Specialty Start Date End Date Gerry Echavarria MD 230 [place], [place] [phone] PCP - General Internal Medicine 07/26/14 Theron New Physician Office SecretaryBulldozer Press Operator 01/08/24 [facility] 09/28/24 02/12/25 [facility] 12/28/24 documented as of this encounter
--- OUTSIDE RECORDS SUMMARY | 2025-03-15 12:07 | XMS_ITS | Encounter Summary ---
Author Organization [employer] Address 75 [facility] 7t [place] [address] Care Team Providers Care Tow Motor Mechanic Name Role Phone Gerry Echavarria MD Primary Care Provide r Reason for Visit * Reason Onset Date Comments Nurse Triage 12/14/2023 Encounter Details Date Type Department Care Team ([facility] st Contact Info) Description 12/14/2023 Telephone [facility] 230 [place], [place] [phone] Gerry Echavarria MD 230 [place] [address] Nurse Triage Social History Tobacco Use Types [...] given number to free telehealth service via [employer] [facility] [phone]. Pt to call them to see if [...] cough,fever) (Exceptions: Already seen by doctor or [place] ATTENDANT/PA and no new or worsening symptoms.) * [...] accepted this outcome Please contact pt @ [phone] Syriac Pt advices feels her chest a little tight. Came out positive for COVID on 12/14/2023 documented in this encounter Plan of Treatment Upcoming Encounters Date Type Department Care Team (Late st Contact Info) Description 04/18/2025 11:15 AM EDT Office Visit [facility] [address] [place] [address] Gerry Echavarria MD 230 [place] [address] documented as of this encounter Goals Goal [...] documented as of this encounter Care Teams Tow Motor Mechanic Relationship Specialty Start Date End Date Gerry Echavarria MD 230 [place] [address] PCP - General Internal Medicine 07/26/14 Theron New Teacher'S AideObstetrical Nurse 01/08/24 [facility] 09/28/24 02/12/25 [facility] 12/28/24 documented as of this encounter
--- OUTSIDE RECORDS SUMMARY | 2025-03-15 12:07 | XMS_ITS | Encounter Summary ---
Author Organization [employer] Address 75 [facility] 7t [place] [address] Care Team Providers Care Carry Out Clerk Name Role Phone Gerry Echavarria MD Primary Care Provide r Reason for Visit * Reason Onset Date Comments Nurse Triage 04/06/2023 Encounter Details Date Type Department Care Team ([facility] st Contact Info) Description 04/06/2023 Telephone [facility] 230 [place], [place] [phone] Gerry Echavarria MD 230 [place] [address] Nurse Triage Social History Tobacco Use Types [...] 04/06/2023 4:58 PM EDT Triage call with Parish Power Washer [place] [id number] Pt reports cough, sore throat, headache and [...] is advised [facility] today to be seenand Pt [...] Getting worse The caller accepted this outcome (Setswana speaker) documented in this encounter Plan of Treatment Upcoming Encounters Date Type Department Care Team (Late st Contact Info) Description 04/18/2025 11:15 AM EDT Office Visit [facility] 230 [place], [place] [phone] Gerry Echavarria MD 230 [place], [place] [phone] documented as of this encounter Goals Goal [...] documented as of this encounter Care Teams Carry Out Clerk Relationship Specialty Start Date End Date Gerry Echavarria MD 230 [place], [place] [phone] PCP - General Internal Medicine 07/26/14 Theron New Green Material Value Added AssessorRecreation Facility Attendant 01/08/24 [facility] 09/28/24 02/12/25 [facility] 12/28/24 documented as of this encounter
--- OUTSIDE RECORDS SUMMARY | 2025-03-15 12:07 | XMS_ITS | Encounter Summary ---
Author Organization [employer] Address [address] [facility] 7t [place] [address] Care Team Providers Care Char Dust Cleaner And Salvager Name Role Phone Gerry Echavarria MD Primary Care Provide r Reason for Visit * Reason Comments Med Refill Encounter Details Date Type Department Care Team ([facility] st Contact Info) Description 04/04/2023 Refill [facility] 230 [place], [place] [phone] Mala Williamson, ANP 230 [place] [address] Diarrhea, unspecified type; Irritable bowel syndrome, unspecified [...] 11:15 AM EDT Office Visit [facility] [address] [place] [address] Gerry Echavarria MD [address] [place] [address] documented as of this encounter Goals Goal [...] documented as of this encounter Care Teams Char Dust Cleaner And Salvager Relationship Specialty Start Date End Date Gerry Echavarria MD [address] [place] [address] PCP - General Internal Medicine 07/26/14 Theron New Framework DeveloperDirector Of Conservation 01/08/24 [facility] 09/28/24 02/12/25 [facility] 12/28/24 documented as of this encounter
--- OUTSIDE RECORDS SUMMARY | 2025-03-15 12:07 | XMS_ITS | Encounter Summary ---
Author Organization [email or web address] Address [address] [facility] 7t [place] [address] Care Team Providers Care Senior Inspector Name Role Phone Gerry Echavarria MD Primary Care Provide r Reason for Referral * Consultation (Routine) - Closed Specialty Diagnoses / Procedures Referred By Contsanket gracia Referred To Contact Urology Diagnoses Nephrolithiasis Krystina Haji MD [address] [place] [address] Phone: tel: fax: [facility] [place] Referral ID Status Reason Start Date Expiration Date V isits Requested Visits Authorized [id number] Closed Specialty Services Required 01/24/2025 01/24/2026 6 6 Encounter Details Date Type Department Care Team (Late st Contact Info) Description 01/21/2025 Orders Only [facility] MEDICINE [address] [place] [address] [phone] Krystina Haji MD [address] [place], [place] [phone] Nephrolithiasis (Primary Dx) Social History Tobacco Use [...] 11:15 AM EDT Office Visit [facility] MEDICINE [address] [place] [address] Gerry Echavarria MD [address] [place] [address] Scheduled Referrals Name Type Priority Associated Diagnoses [...] documented as of this encounter Care Teams Senior Inspector Relationship Specialty Start Date End Date Gerry Echavarria MD [address] [place] [phone] PCP - General Internal Medicine 07/26/14 [facility] ManagerRepresentative Personal Service 01/08/24 [facility] 09/28/24 02/12/25 [facility] 12/28/24 documented as of this encounter
== END 2025-03-15 11:24 | disposition home or self-care (01) ==
LOC: HO.PMC 11:03
PROVIDERS: PCP Internal Medicine; Referring Provider Student in an Organized Health Care Education/Training Program; Visit Provider Registered Nurse Emergency
DX: M47.816 Spondylosis without myelopathy or radiculopathy, lumbar region (principal); M54.9 Dorsalgia, unspecified; G89.29 Other chronic pain
CPT/HCPCS: 99214

== ENCOUNTER → 2025-03-15 11:02 | Outpatient (BNVA) | payer MEDICAID, SELFPAY | PROVIDERS: PCP Internal Medicine; Referring Provider Student in an Organized Health Care Education/Training Program; Visit Provider Registered Nurse Emergency | DX: M47.816 Spondylosis without myelopathy or radiculopathy, lumbar region (principal); G89.29 Other chronic pain | CPT/HCPCS: 99212 ==

== ENCOUNTER 2025-04-03 13:30 | Outpatient (REF) | payer MEDICAID, SELFPAY ==
--- NOTE | ~2025-04-03 | US_ITS ---
EXAMINATION: US PELVIS CLINICAL INFORMATION: Right ovarian cyst. COMPARISON: Ultrasound pelvis 02/16/2025 TECHNIQUE: Ultrasound of the pelvis is performed using both transabdominal and transvaginal transducers along with Doppler. Transvaginal imaging is performed due to inadequate visualization transabdominally. FINDINGS: Uterus: The uterus is anteverted , anteflexed and measures 8.6 x 4.0 x 5.7 cm. The double wall endometrial thickness is 0.5 cm. The uterus is smooth in contour and has normal myometrial echogenicity. No visible fibroid. There are small nabothian cyst seen in the cervix. Adnexa: Both ovaries are visualized. There is normal color flow to the adnexa. There is no ovarian torsion. There is no pelvic ascites or fluid collection. Right ovary measures 2.4 x 1.0 x 1.3 cm. Volume 1.6 mL. Previously right ovary measured 5.1 x 3.2 x 4.2 cm. Previously noted right ovarian cyst is not visualized. Left ovary measures 2.7 x 1.1 x 1.3 cm. Volume 2.0 mL. Previously measured 2.5 x 0.9 x 1.5 cm. There is no free fluid in cul-de-sac. US/US pelvic and transvaginal IMPRESSION: Unremarkable uterus and ovaries. Previously seen right ovarian cyst has resolved. There are small nabothian cysts in the cervix. Electronically signed by: Calixto Nuñez MD 04/03/2025 02:42 PM EDT
--- OUTSIDE RECORDS SUMMARY | 2025-04-03 14:38 | XMS_ITS | Clinical Summary ---
Author Organization 175 [facility] Address [address] [place] [address] Phone Care Team Providers Care Studio Control Operator Name Role Phone Gerry Lopez MD Primary [...] lidocaine (PF) (XYLOCAINE-MPF) 1 % injection 0.5 mLIndications:Disorde r of ligament of foot, left,Synovitis and tenosynovitis of left ankle and foot,Tendinitis of left ankle .5 mL inj Once PRN Procedure 03/20/2025 03/20/2025 Ended triamcinolone acetonide (KENALOG-40) 40 mg/mL injection 20 mgIndications:Disorde r of ligament of foot, left,Synovitis and tenosynovitis of left ankle and foot,Tendinitis of left ankle 20 mg IAtc Once PRN Procedure 03/20/2025 03/20/2025 Ended Encounters Date Type Department Care Team Description 03/20/2025 2:30 PM EDT Office Visit Orthopedic Surgery [facility] [address] [address] Juan Frey DPM Tendinitis of right ankle (Primary Dx); Disorder of ligament of foot, left; Primary osteoarthritis of both feet; Synovitis and tenosynovitis of left ankle and foot; Tendinitis of left ankle 01/17/2025 1:00 PM EDT Office Visit Orthopedic [facility] [address] [address] Juan Fery DPM Synovitis and tenosynovitis of left ankle [...] - - Weight 95.3 kg (210 lb) 03/20/2025 2:19 PM EDT Height 165.1 cm (5' 5 ) 03/20/2025 2:19 PM EDT Body Mass Index 34.95 03/20/2025 2:19 PM EDT Plan of Treatment Upcoming Encounters Date Type Department Care Team (Late st Contact Info) Description 05/23/2025 2:45 PM EDT Office Visit Orthopedic Surgery [place] [address] [phone] Juan Frey DPM [address] [address] Health Maintenance Due Date Last Done Comments Breast Cancer Screening 1975 Diabetes: Annual Foot Exam 1986 Diabetes: Annual Retina Eye Exam 1986 HIV Screening 10/01/2022 Hepatitis C Screening 10/01/2022 Social Influencers of Health Screening 10/01/2022 COVID-19 Vaccine ( season) 2024 11/19/2021, 04/28/2021, 03/28/2021 Diabetes: Annual Urine Albumin-Creatinine Ratio (uACR) 10/12/2024 Influenza Vaccine (Season Ended) 2025 01/03/2014 Diabetes: Blood Sugar Control Test (HGBA1C) 07/13/2025 01/10/2025, 08/11/2024, 05/21/2022 Depression Screening 11/01/2025 11/01/2024 Diabetes: Annual GFR (Glomerular Filtration Rate) 02/08/2026 02/08/2025, 01/19/2025, 01/19/2025, Additional history exists Hypertension/CHF/CAD Annual BMP Blood Test 02/08/2026 02/08/2025, 01/19/2025, 01/19/2025, Additional history exists Cervical Cancer Screening: HPV 04/17/2026 04/17/2021 Colorectal Cancer Screening: FIT-DNA (Cologuard) 12/18/2026 12/18/2023, 12/18/2023 DTaP,Tdap,and Td Vaccines (3 - Td or Tdap) 04/30/2027 04/30/2017, 03/25/2004 Cholesterol Screening (Lipid Panel) 08/18/2029 08/18/2024, 06/03/2023 Hepatitis A Vaccines Aged Out 11/19/2012, 03/15/20 [...] 64 Years) Aged Out No longer eligible based on patient's age to complete this topic RSV Immunization Patients Under 20 months Aged Out No longer eligible based on patient's age to complete this topic Varicella Vaccines Aged Out No longer eligible based on patient's age to complete this topic Procedures Procedure Name Priority Date/Time Associated Diagnosis Comments INJECTION TENDON OR LIGAMENT Routine 03/20/2025 2:30 PM EDT Disorder of ligament of foot, left Synovitis and tenosynovitis of left ankle and foot Tendinitis of left ankle INJECTION TENDON OR LIGAMENT Routine 01/17/2025 1:00 PM EDT Synovitis and tenosynovitis of left ankle and foot ANNUAL BMP BLOOD TEST Routine 04/09/2024 FIT-DNA Routine 12/18/2023 LIPID PANEL Routine 06/03/2023 HEMOGLOBIN A1C Routine 05/21/2022 HPV Routine 04/17/2021 from Last 3 Months or Most Recently Relevant to Health Maintenance Results * Injection tendon or ligament (03/20/2025 2:30 PM EDT) Juan Garcia DPM - 03/20/2025 2:30 PM EDT Juan Frey DPM ? 03/20/2025 ??5:16 PM Injection tendon or ligament Indications: pain Details: 25 G needle Medications: 0.5 mL lidocaine (PF) 1 %; 20 mg triamcinolone acetonide 40 mg/mL Informed Consent: ??Site: ??Foot ligament tendon us Juan Frey DPM IN CLINIC/BEDSIDE ORDERAB LES Final Result * Injection tendon or ligament (01/17/2025 1:00 PM EDT) Juan Garcia DPM - 01/17/2025 1:00 PM EDT Juan Frey DPM ? 01/17/2025 ??7:03 PM Injection tendon or ligament Indications: pain Details: 25 G needle Medications: 0.5 mL lidocaine (PF) 1 %; 20 mg triamcinolone acetonide 40 mg/mL Informed Consent: ??Site: ??Foot ligament tendon Result [facility] Juan Frey DPM IN CLINIC/BEDSIDE ORDERAB LES Final Result * Annual BMP Blood Test (04/09/2024) [facility] Annual BMP Blood Test abstracted Result [facility] Provider HEALTH MAINTENANCE Final Result * FIT-DNA (Cologuard) (12/18/2023) [facility] Colorectal Cancer Screening: FIT-DNA (Cologuard) no interpretation , abstracted Result [facility] Provider HEALTH MAINTENANCE Final Result * Lipid panel (06/03/2023) [facility] Triglycerides 0 mg/dL Comment:no interpretation Cholesterol 0 mg/dL Comment:no interpretation HDL 0 mg/dL Comment:no interpretation LDL Cholesterol 0 mg/dL Comment:no interpretation Blood Venous blood specimen / Unknown Result [facility] Provider LAB BLOOD ORDERABLES Judy l Result * Hemoglobin A1c (05/21/2022) [facility] Hemoglobin A1C 0.0 % Comment:no interpretation Blood Venous blood specimen / Unknown Result [facility] Provider LAB BLOOD ORDERABLES Judy l Result * Cervical Cancer Screening: HPV (04/17/2021) [facility] Cervical Cancer Screening: HPV no interpretation , abstracted Result [facility] Historical Provider HEALTH MAINTENANCE Final Result from Last 3 Months or Most Recently Relevant to Health Maintenance Insurance MEDICAID - [place] Care Teams Studio Control Operator Relationship Specialty Start Date End Date Gerry Lopez MD [address] [place] [address] [place] [phone] PCP - General 07/29/22
== END 2025-04-03 13:31 | disposition home or self-care (01) ==
LOC: HO.US 13:30
PROVIDERS: PCP Internal Medicine; Visit Provider Nurse Practitioner Primary Care
DX: N83.201 Unspecified ovarian cyst, right side (principal)
CPT/HCPCS: 76830; 76856

== ENCOUNTER → 2025-04-03 13:33 | Outpatient (BNV) | payer MEDICAID, SELFPAY | PROVIDERS: PCP Internal Medicine; Visit Provider Radiology Diagnostic Radiology | DX: N83.291 Other ovarian cyst, right side (principal) | CPT/HCPCS: 76830; 76856 ==

== ENCOUNTER → 2025-04-17 13:04 | Outpatient (REF) | payer MEDICAID, SELFPAY ==
--- NOTE | 2025-04-17 13:07 | CA_ITS ---
Transthoracic Echocardiogram Patient (Last, First, Middle): Julia Smith, Gender: Female Date of : 1975 Age: 50 Procedure Date: 04/17/2025 Procedure Type: Transthoracic Echocardiogram Location: OP Height: 165.1 cm Weight: 94.8 kg BSA: 2.02 m2 Heart Rate: 67 bpm BP: 127 / 65 mmHg Fruit Culler: DYLAN Referring MD: Mike Layne MD Symptoms: R07.2 - Precordial pain Study Quality: Adequate w contrast ECG Rhythm: Sinus Conclusions: - The left ventricular systolic function is normal. The calculated ejection fraction is 59% by biplane method. - No obvious valvular pathology seen on this study. Findings Procedure Information Contrast agent, definity, is being given per protocol without apparent complications. Left Ventricle Normal left ventricular cavity size. There is normal left ventricular wall thickness. The left ventricular systolic function is normal. The calculated ejection fraction is 59% by biplane method. There is no evidence of regional wall motion abnormalities. Diastolic function is normal for age. Right Ventricle Normal right ventricular cavity size and systolic function. Atria Both atria are normal in size. Aortic Valve There is a normal trileaflet aortic valve. There is no aortic valve stenosis. There is no aortic valve regurgitation. Mitral Valve The mitral valve appears normal. There is no mitral valve regurgitation. There is no mitral valve stenosis. Pulmonic Valve The pulmonic valve is likely normal. Tricuspid Valve There is no tricuspid valve regurgitation. Tricuspid regurgitation envelope is inadequate for calculation of right ventricular systolic pressure. Great Vessels The asc aorta is normal in size. Venous The inferior vena cava was not well visualized. Pericardium/Pleural There is no evidence of pericardial effusion. Prior Study Comparison No prior study available for comparison. Recommendations, Care & Conclusions No obvious valvular pathology seen on this study. Measurements 2D Linear Measurements IVSd: 0.95 0.6-0.9/0.6-1.0 cm LVIDd: 4.43 3.9-5.3/4.2-5.9 cm LVIDd Index: 2.19 2.4-3.2/2.2-3.1 cm/m2 LVIDs: 2.42 2.0-3.6 cm LVPWd: 0.89 0.7-1.1 cm LA Diam: 3.40 2.7-3.8/3.0-4.0 cm LAIDs Index: 1.68 1.5-2.3 cm/m2 LV Mass: 165.94 67-162/88-224 g LV Mass Index: 82.15 43-95/49-115 g/m2 LVOT Diam: 2.20 3.0+(-)1.3 cm 2D Systolic Function EF 4C: 48.30 >55% EF 2C: 67.90 >55% EF BiP: 58.60 >55% Mitral Valve MV Pk E: 0.68 MV PK A: 0.63 MV Decel Time: 204.00 E/A: 1.10 E'Lateral: 9.46 E'Medial: 5.66 E/E' Med: 12.00 E/E' Lat: 7.20 PHT: 60.00 MVA PHT: 3.67 Decel Greer: 3.34 Aortic Valve AoV Pk Andre: 1.32 AoV Pk Grad: 7.00 COLBY: 3.60 LVOT LVOT Pk Andre: 1.10 LVOT Mn Andre: 0.84 LVOT VTI: 0.26 LVOT Pk Grad: 5.00 LVOT Mn Grad: 3.00 LVOT Diam: 2.20 LVOT Area: 3.80 Diastolic Function MV Pk E: 0.68 MV Pk A: 0.63 E/A: 1.10 E'Medial: 5.66 E/E' Med: 12.00 E' Laterial: 9.46 E/E' Lat: 7.20 Right Ventricle TAPSE (mm): 20.70 TVS' Andre: 14.50 Tricuspid Valve RA Press: 4.00 Great Vessels Aorta Sinus of Valsalva: 3.20 2.0-3.5 cm Ao Asc: 3.30 2.1-3.4 cm Pulmonary Veins Pulm Vein S/D 1.50 Pulmonary Valve PV Pk Andre: 0.83 Peak PV Grad: 3.00 Updated in Other Vendor System with Status of Final Bart Layne MD electronically signed on 04/17/2025 4:03:55 PM with status of Final
--- OUTSIDE RECORDS SUMMARY | 2025-04-17 14:31 | XMS_ITS | Clinical Summary ---
Author Organization 175 [facility] Address [address] [place] [address] Phone Care Team Providers Care State Highway Police Officer Name Role Phone Gerry Lopez MD Primary [...] 2:30 PM EDT Office Visit Orthopedic Surgery [facility] [address] [phone] Juan Frey DPM Tendinitis of right ankle (Primary Dx); Disorder of ligament of foot, left; Primary osteoarthritis of both feet; Synovitis and tenosynovitis of left ankle and foot; Tendinitis of left ankle 01/17/2025 1:00 PM EDT Office Visit Orthopedic [facility] [address] [address] Juan Frey DPM Synovitis and tenosynovitis of [...] 2:45 PM EDT Office Visit Orthopedic Surgery [place] [address] [address] Juan Frey DPM [address] [address] Health Maintenance Due Date Last Done Comments [...] Informed Consent: ??Site: ??Foot ligament tendon Result [facility] Juan Frey DPM IN CLINIC/BEDSIDE ORDERAB LES Final Result * Annual BMP Blood Test (04/09/2024) [facility] Annual BMP Blood Test abstracted Result [facility] Provider HEALTH MAINTENANCE Final Result * FIT-DNA (Cologuard) (12/18/2023) [facility] Colorectal Cancer Screening: FIT-DNA (Cologuard) no interpretation , abstracted Result [facility] Provider HEALTH MAINTENANCE Final Result * Lipid panel (06/03/2023) [facility] Triglycerides 0 mg/dL Comment:no interpretation Cholesterol 0 mg/dL Comment:no interpretation HDL 0 mg/dL Comment:no interpretation LDL Cholesterol 0 mg/dL Comment:no interpretation Blood Venous blood specimen / Unknown Result [facility] Provider LAB BLOOD ORDERABLES Judy l Result * Hemoglobin A1c (05/21/2022) [facility] Hemoglobin A1C 0.0 % Comment:no interpretation Blood Venous blood specimen / Unknown Result [facility] Provider LAB BLOOD ORDERABLES Judy l Result * Cervical Cancer Screening: HPV (04/17/2021) [facility] Cervical Cancer Screening: HPV no interpretation , abstracted Result [facility] Historical Provider HEALTH MAINTENANCE Final Result from Last 3 Months or Most Recently Relevant to Health Maintenance Insurance MEDICAID - [place] Care Teams State Highway Police Officer Relationship Specialty Start Date End Date Gerry Lopez MD [address] [place] [address] [place] [phone] PCP - General 07/29/22
== END ==
LOC: HO.CARD 13:04
PROVIDERS: PCP Internal Medicine; Visit Provider Internal Medicine Cardiovascular Disease
DX: R07.2 Precordial pain (principal)
CPT/HCPCS: 93306; Q9957

== ENCOUNTER → 2025-04-17 13:07 | Outpatient (BNV) | payer MEDICAID, SELFPAY | PROVIDERS: PCP Internal Medicine; Visit Provider Internal Medicine | DX: R07.2 Precordial pain (principal) | CPT/HCPCS: 93306 ==

== ENCOUNTER → 2025-04-26 10:46 | Outpatient (REF) | payer MEDICAID, SELFPAY ==
--- NOTE | 2025-04-26 10:51 | CA_ITS ---
Acquisition Time: 2025-04-26 11:08:18 Total Exercise Time: 00:08:08 Test Indications: CP Medications: SEE H&P Protocol: JESSICA Max HR: 146 BPM 85% of Pred: 171 BPM Max BP: 118/78 mmHG Max Work Load: 10.0 METS Exercise stress test with exercise 8 mins 8 secs ogf Jessica Protocol, achieving 84% MPHR, with reports of SOB and fatigue, with 4/10 left sided chest pressure in early recovery that resolved quickly, without any arrythmias, with normotensive response to exercise. Without any EKG chnages meeting criteria for ischemia. In later recovery, pt again had left sided chest pressure that waxes and wanes. Breathing back to baseline. Chest pressure resolved completely. Echo images obtained by tech at rest and post peak exercise. Definity contrast utilized. Test reviewed with Dr. Layne. Referred By: Mike Layne Electronically Signed By: Beny Franco
--- OUTSIDE RECORDS SUMMARY | 2025-04-26 12:44 | XMS_ITS | Clinical Summary ---
Author Organization 175 [facility] Address [address] [place] [address] Phone Care Team Providers Care Nurse Ob Name Role Phone Gerry Lopez MD Primary [...] PM EDT Office Visit Orthopedic Surgery - [address] [address] Juan Frey, DPM Tendinitis of right ankle (Primary Dx); Disorder of ligament of foot, left; Primary osteoarthritis of both feet; Synovitis and tenosynovitis of left ankle and foot; Tendinitis of left ankle from Last 3 Months Social History Tobacco [...] 2:45 PM EDT Office Visit Orthopedic Surgery - [place] [address] [phone] Juan Frey, POORNIMA [address] [address] Health Maintenance Due Date Last Done Comments [...] ankle and foot Tendinitis of left ankle ANNUAL BMP BLOOD TEST Routine 04/09/2024 FIT-DNA Routine 12/18/2023 LIPID PANEL Routine 06/03/2023 HEMOGLOBIN A1C Routine 05/21/2022 HPV Routine 04/17/2021 from Last 3 Months or Most Recently Relevant to Health Maintenance Results * Injection tendon or ligament (03/20/2025 2:30 PM EDT) Juan Garcia DPM - 03/20/2025 2:30 PM EDT Juan Frey DPM 03/20/2025 5:16 PM Injection tendon or ligament Indications: pain Details: 25 G needle Medications: 0.5 mL lidocaine (PF) 1 %; 20 mg triamcinolone acetonide 40 mg/mL Informed Consent: Site: Foot ligament tendon Result [facility] Juan Frey DPM IN CLINIC/BEDSIDE ORDERAB LES Final Result * Annual BMP Blood Test (04/09/2024) [facility] Annual BMP Blood Test abstracted Result [facility] Provider HEALTH MAINTENANCE Final Result * FIT-DNA (Cologuard) (12/18/2023) [facility] Colorectal Cancer Screening: FIT-DNA (Cologuard) no interpretation , abstracted Result [facility] Provider HEALTH MAINTENANCE Final Result * Lipid panel (06/03/2023) [facility] Triglycerides 0 mg/dL Comment:no interpretation Cholesterol 0 mg/dL Comment:no interpretation HDL 0 mg/dL Comment:no interpretation LDL Cholesterol 0 mg/dL Comment:no interpretation Blood Venous blood specimen / Unknown Result [facility] Provider LAB BLOOD ORDERABLES Judy l Result * Hemoglobin A1c (05/21/2022) [facility] Hemoglobin A1C 0.0 % Comment:no interpretation Blood Venous blood specimen / Unknown Result [facility] Provider LAB BLOOD ORDERABLES Judy l Result * Cervical Cancer Screening: HPV (04/17/2021) [facility] Cervical Cancer Screening: HPV no interpretation , abstracted Result [facility] Provider HEALTH MAINTENANCE Final Result from Last 3 Months or Most Recently Relevant to Health Maintenance Insurance MEDICAID - [place] Care Teams Nurse Ob Relationship Specialty Start Date End Date Gerry Lopez MD [address] [place] [phone] PCP - General 07/29/22
== END ==
LOC: HO.CARD 10:46
PROVIDERS: PCP Internal Medicine; Visit Provider Internal Medicine Cardiovascular Disease
DX: R07.2 Precordial pain (principal)
CPT/HCPCS: 93350; Q9957

== ENCOUNTER → 2025-04-26 10:51 | Outpatient (BNV) | payer MEDICAID, SELFPAY | PROVIDERS: PCP Internal Medicine | DX: R06.02 Shortness of breath (principal); R07.2 Precordial pain | CPT/HCPCS: 93016; 93018; 93350; 93352 ==

== ENCOUNTER 2025-05-01 13:17 | Outpatient (AMB) | payer MEDICAID, SELFPAY ==
[2025-05-01 13:22] VITALS: BP 100/72; PULSE 66; BMI 34.7
--- NOTE | 2025-05-01 13:22 | MHC.OFFVIS ---
Vital Signs 05/01/25 13:22 Height 5 ft 5 in Weight 208 lb 8.917 oz BMI 34.7 BP 100/72 Blood Pressure Location Lt brachial Position Sitting Pulse 66 Pulse Source Pulse Oximeter Intake Visit Reasons: f/u after testing Organization Development Consultant Required: Yes Organization Development Consultant Language: Insurance Assistant Name: voice stewart [id number] Allergies penicillin G (PENICILLIN G) Allergy (Severe, Verified 05/01/25 13:24) ANAPHYLAXIS shrimp Allergy (Severe, Verified 05/01/25 13:24) Anaphylaxis Penicillins (PCN) Allergy (Verified 05/01/25 13:24) Unknown Medication List - Last Reconciled 05/01/25 by MATEUS Clancy acetaminophen ER 650 mg PO Q8H PRN buspirone 30 mg PO BID vynzxyatrt-kwivfoslzduma-sotc 50-325-40 mg 1 - 2 tabs PO Q6-8H PRN celecoxib 100 mg PO BID cetirizine 1 tab PO DAILY cholecalciferol (vitamin D3) 25 mcg PO DAILY citalopram 20 mg PO DAILY clindamycin phosphate 1% 1 appl topical DAILY clonazepam 1.5 mg PO BEDTIME dicyclomine 20 mg orally before breakfast, lunch, and dinner; diphenhydramine HCl (Banophen) 50 mg PO Q4-6H PRN fluticasone propionate 50 mcg/actuation 2 sprays intranasal DAILY gabapentin 200 mg (2 x 100 mg) PO TID hydrocortisone 2.5% 1 appl topical BID ketoconazole 2% 1 appl topical 2XW lidocaine 5% 1 patch transdermal Q3D PRN lisinopril 10 mg PO DAILY metformin 500 mg PO DAILY methocarbamol 500 mg PO BID PRN omeprazole 20 mg PO BID sodium chloride 0.65% (Saline Nasal) 1 - 2 sprays intranasal Q2-3H PRN tacrolimus 0.1% 1 appl topical DIRECTED topiramate 1 tab PO DAILY tramadol 50 mg PO Q6H PRN venlafaxine ER 150 mg PO QAM HPI HPI f/u after testing: Details: Julia is a 50-year-old female with past medical history of obesity, diabetes who is being evaluated for left chest pressure. She underwent a exercise stress echo and echocardiogram and now presents for follow-up. Today she reports she has been doing well since her last visit. She tells me that her chest discomfort has resolved. She says she feels good with no concerning symptoms. She has no heart palpitations, lightheadedness, shortness of breath, activity intolerance. She is taking her medications as directed. She tells me she has had diabetes for the last 2 years and it is mostly controlled. [facility] Medical History Fibromyalgia Epidermal cyst Pes cavus of both feet Allergies Headache GERD (gastroesophageal reflux disease) Surgical History History of removal of cyst (~06/27/24) History of shoulder surgery History of tubal ligation Hx of tonsillectomy Family History Mother Arthritis Father Diabetes Social History Household Members: Significant Other Are you a primary acute care nurse to a significant other at home: No Do you presently have visiting nurse or other home services: No Alcohol intake: former Patient Tobacco Use Status: Former Tobacco user Current occupational status: employed and unemployed Review of Systems Const All systems reviewed & are unremarkable except as noted in HPI and below ENT Denies dizziness Card Denies chest pain, Denies chest pain at rest, Denies chest pain with activity, Denies rapid heart rate, Denies pedal edema, Denies edema, Denies leg edema, Denies lightheadedness, Denies palpitations, Denies dyspnea, Denies dyspnea on exertion and Denies orthopnea Resp Denies cough, Denies dyspnea and Denies dyspnea on exertion GI Denies hematochezia and Denies change in stool character Musc Denies abnormal gait, Denies limited range of motion, Denies muscle cramps, Denies muscle weakness, Denies numbness, Denies radiating pain into limb, Denies stiffness and Denies tingling Neuro Denies abnormal gait, Denies dizziness, Denies numbness and Denies tingling Endo Denies palpitations Physical Exam Vital Signs: Last Vital Signs Pulse 66 05/01/25 13:22 BP 100/72 05/01/25 13:22 BMI result Body Mass Index 34.7 Const General: cooperative, healthy appearing, comfortable and no acute distress Orientation/consciousness: patient oriented x3 Neck Neck: Yes normal visual inspection Resp Effort & Inspection: normal respiratory effort Auscultation: clear to auscultation bilaterally, no rales, no rhonchi and no wheezes Cardio Rate: regular rate Rhythm: regular rhythm Heart sounds: S1 normal heart sound present, S2 normal heart sound present, no gallops, no murmurs and no rubs Neuro General: patient oriented x3 Extrem General: Yes normal to inspection, No no pedal edema and No calf tenderness Psych Appearance: grossly normal Mental Status: mental status grossly normal Speech and movement: Normal speech and movement present Assessment & Plan Assessment & Plan (1) Precordial chest pain: Code(s): R07.2 - Precordial pain Category: Medical Plan: Prior reports of left-sided chest discomfort which has since resolved. Echocardiogram done 04/17/2025 showed EF 59%, no valve or regional wall motion abnormalities. Exercise stress echocardiogram done 04/26/2025 showed exercise 8 minutes with shortness of breath and left chest pressure, no EKG or echo evidence of ischemia, no echo evidence of diastolic dysfunction or pulmonary hypertension. Test results reviewed with her in detail. Cardiac risk factor modification reviewed including need for ongoing good diabetic control. Signs and symptoms of angina discussed. Cardiology follow-up p.r.n.. (2) Diabetes: Code(s): E11.9 - Type 2 diabetes mellitus without complications Category: Medical Plan: Hemoglobin A1c goal less than 7. Followed by her PCP. Plan I discussed with the patient the results of her echocardiogram and stress echocardiogram, which showed normal cardiac function. I emphasized the importance of controlling diabetes and hypertension to prevent cardiac complications. I advised her to report any new or different chest pain, especially during physical activity, and explained that further testing would be considered if symptoms arise. Patient Instructions: - Monitor for new or different chest pain, especially during activity. - Maintain control of diabetes and hypertension. - Follow up with cardiology as needed based on symptoms. Patient was informed and verbally consented to the use of an ambient scribe for clinic note documentation during this visit. Visit time spent on chart review, interview, assessment, orders, documentation. Coding Level of Care Code Est Pt Level 3 (72770) Complex EM visit Add On G2211 Diagnoses Precordial chest pain R07.2 Diabetes E11.9 Time Spent (min) 24
--- OUTSIDE RECORDS SUMMARY | 2025-05-01 13:45 | XMS_ITS | Encounter Summary ---
Author Organization [employer] Address [address] [facility] [address] [place] [address] Care Team Providers Care Benefits Consulting Analyst Name Role Phone Gerry Echavarria MD Primary Care Provide r Encounter Details Date Type Department Care Team ([facility] st Contact Info) Description 10/06/2024 Telephone [facility] [address] [place] [address] Gerry Echavarria MD [address] [place], [place] [phone] Social History Tobacco Use Types Packs/Day Years [...] Care Team (Late st Contact Info) Description 07/25/2025 11:30 AM EDT Office Visit [facility] [address] [place] [address] Gerry Echavarria MD [address] [place] [address] documented as of this encounter Goals Goal Patient Goal Type Associated Problems Recent Progress Patient-Stated? Author Blood Pressure < 140/90 Blood Pressure Essential hypertension 120/86(2024 11:24 AM EDT) No Angel Emmanuel, Roney Note: BP at goal every other day; encouraged lifestyle changes to promote BP control Follow the DASH diet Diet Essential hypertension On track( 4:06 PM EDT) No Angel Emmanuel, PharmMamta Note: Look for low-sodium products Increase physical activity Exercise Essential hypertension On track( 4:06 PM EDT) No Angel Emmanuel, Roeny Note: inactive, advised some amount of cardio can help with heart health documented as of this encounter Visit Diagnoses Not on filedocumented in this encounter Additional Health Concerns Assessment Noted Time PHQ-9 Depression Total Score: 11 023 2:03 PM EDT documented as of this encounter Care Teams Benefits Consulting Analyst Relationship Specialty Start Date End Date Gerry Echavarria MD [address] [place] [phone] PCP - General Internal Medicine 07/26/14 [employer] Machine TenderSurvey Technician 01/08/24 [facility] 09/28/24 02/12/25 [facility] 12/28/24 documented as of this encounter
== END 2025-05-01 13:42 | disposition home or self-care (01) ==
LOC: HO.HCS 13:18
PROVIDERS: PCP Internal Medicine; Visit Provider Nurse Practitioner Family
DX: R07.2 Precordial pain (principal); E11.9 Type 2 diabetes mellitus without complications
CPT/HCPCS: 99213

== ENCOUNTER → 2025-05-01 13:17 | Outpatient (BNVA) | payer MEDICAID, SELFPAY | PROVIDERS: PCP Internal Medicine; Visit Provider Nurse Practitioner Family | DX: Z71.2 Person consulting for explanation of examination or test findings (principal); E66.9 Obesity, unspecified; E11.9 Type 2 diabetes mellitus without complications; R07.2 Precordial pain | CPT/HCPCS: 99212 ==

== ENCOUNTER 2025-06-06 10:17 | Outpatient (REF) | payer MEDICAID, SELFPAY ==
--- NOTE | 2025-06-06 10:21 | EMG_ITS ---
Bilateral tibial and peroneal motor studies were performed bilateral superficial peroneal and sural sensory studies were performed median and lateral plantar mixed sensory studies were performed and needle examination was performed. Tibial H reflexes were also obtained. 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 MTDD
--- OUTSIDE RECORDS SUMMARY | 2025-06-06 10:52 | XMS_ITS | Encounter Summary ---
Author Organization [employer] Address [address] [facility] [address] [place] [address] Care Team Providers Care Trade Promotion Analyst Name Role Phone Gerry Echavarria MD Primary Care Provide r Encounter Details Date Type Department Care Team ([facility] st Contact Info) Description 10/06/2024 Telephone [facility] [address] [place] [address] Gerry Echavarria MD [address] [place], [place] [phone] Social History Tobacco Use Types Packs/Day Years [...] Description 07/25/2025 11:30 AM EDT Office Visit [facility] [address] [place] [address] Geryr Echavarria MD [address] [place] [address] documented as of this encounter Goals Goal [...] documented as of this encounter Care Teams Trade Promotion Analyst Relationship Specialty Start Date End Date Gerry Echavarria MD [address] [place] [address] PCP - General Internal Medicine 07/26/14 Theron New Professional Benefits Sales ConsultantExecutive Officer Special Warfare Team 01/08/24 [facility] 09/28/24 02/12/25 [facility] 12/28/24 Heather Pérez Professional Benefits Sales ConsultantExecutive Officer Special Warfare Team 05/23/25 documented as of this encounter
--- OUTSIDE RECORDS SUMMARY | 2025-06-06 10:52 | XMS_ITS | Clinical Summary ---
Author Organization 175 [facility] Address [address] [place] [address] Phone Care Team Providers Care Program Director/Air Personality Name Role Phone Gerry Lopez MD Primary [...] lidocaine (PF) (XYLOCAINE-MPF) 1 % injection 0.5 mLIndications:Tendin itis of left ankle .5 mL inj Once PRN Procedure 05/23/2025 05/23/2025 Ended triamcinolone acetonide (KENALOG-40) 40 mg/mL injection 20 mgIndications:Tendin itis of left ankle 20 mg IAtc Once PRN Procedure 05/23/2025 05/23/2025 Ended Encounters Date Type Department Care Team Description 05/23/2025 2:45 PM EDT Office Visit Orthopedic Surgery - [address] [address] Juan Frey, DPM Synovitis and tenosynovitis of left ankle and foot (Primary Dx); Tendinitis of left ankle 05/09/2025 Telephone Orthopedic Surgery [facility] [address] [address] Agatha Alexandra 03/20/2025 2:30 PM EDT Office Visit [facility] [address] [phone] Juan Frey DPM Tendinitis of right ankle [...] - - Weight 95.3 kg (210 lb) 05/23/2025 2:52 PM EDT Height 165.1 cm (5' 5 ) 05/23/2025 2:52 PM EDT Body Mass Index 34.95 05/23/2025 2:52 PM EDT Plan of Treatment Upcoming Encounters Date Type Department Care Team (Late st Contact Info) Description 07/06/2025 1:45 PM EDT Office Visit Orthopedic [place] [address] [phone] Juan Frey DPM [address] [address] Health Maintenance Due Date Last Done Comments Breast Cancer Screening 1976 Diabetes: Annual Foot Exam 1986 Diabetes: Annual Retina Eye Exam 1986 HIV Screening 10/01/2022 Hepatitis C Screening 10/01/2022 Social Influencers of Health Screening 10/01/2022 COVID-19 Vaccine ( season) 2024 11/19/2021, 04/28/2021, 03/28/2021 Diabetes: Annual Urine Albumin-Creatinine Ratio (uACR) 10/12/2024 Depression Screening 11/02/2024 Influenza Vaccine (#1) 2025 01/03/2014 Diabetes: Blood Sugar Control Test (HGBA1C) 10/18/2025 04/18/2025, 01/10/2025, 08/11/2024, Additional history exists Diabetes: Annual GFR (Glomerular Filtration Rate) 02/08/2026 [...] 5 Years) and At-Risk Patients (6 to 49 Years) Aged Out No longer eligible based on patient's age to complete this topic RSV Immunization Patients Under 20 months Aged Out No longer eligible based on patient's age to complete this topic Varicella Vaccines Aged Out No longer eligible based on patient's age to complete this topic Procedures Procedure Name Priority Date/Time Associated Diagnosis Comments INJECTION TENDON OR LIGAMENT Routine 05/23/2025 2:45 PM EDT Tendinitis of left ankle INJECTION TENDON OR LIGAMENT Routine 03/20/2025 2:30 [...] Maintenance Results * Injection tendon or ligament (05/23/2025 2:45 PM EDT) Juan Garcia DPM - 05/23/2025 2:45 PM EDT Juan Frey DPM 05/23/2025 5:24 PM Injection tendon or ligament Indications: pain Details: 25 G needle Medications: 0.5 mL lidocaine (PF) 1 %; 20 mg triamcinolone acetonide 40 mg/mL Informed Consent: Site: Foot ligament tendon Juan Frey DPM IN CLINIC/BEDSIDE ORDERAB LES Final Result * Injection tendon or ligament (03/20/2025 2:30 PM EDT) Narrative Juan Frey DPM - 03/20/2025 2:30 PM EDT Juan Frey DPM 03/20/2025 5:16 PM Injection tendon or ligament Indications: pain Details: 25 G needle Medications: 0.5 mL lidocaine (PF) 1 %; 20 mg triamcinolone acetonide 40 mg/mL Informed Consent: Site: Foot ligament tendon Juan Frey DPM IN CLINIC/BEDSIDE ORDERAB LES Final Result * Annual BMP Blood Test (04/09/2024) Pathologist [facility] Annual BMP Blood Test abstracted [facility] Provider HEALTH MAINTENANCE Final Result * FIT-DNA (Cologuard) (12/18/2023) [facility] Colorectal Cancer Screening: FIT-DNA (Cologuard) no interpretation , abstracted [facility] Provider HEALTH MAINTENANCE Final Result * Lipid panel (06/03/2023) [facility] Triglycerides 0 mg/dL Comment:no interpretation Cholesterol 0 mg/dL Comment:no interpretation HDL 0 mg/dL Comment:no interpretation LDL Cholesterol 0 mg/dL Comment:no interpretation Blood Venous blood specimen / Unknown [facility] Provider LAB BLOOD ORDERABLES Judy l Result * Hemoglobin A1c (05/21/2022) [facility] Hemoglobin A1C 0.0 % Comment:no interpretation Blood Venous blood specimen / Unknown Result [facility] Provider LAB BLOOD ORDERABLES Judy l Result * Cervical Cancer Screening: HPV (04/17/2021) [facility] Cervical Cancer Screening: HPV no interpretation , abstracted [facility] Provider HEALTH MAINTENANCE Final Result from Last 3 Months or Most Recently Relevant to Health Maintenance Insurance MEDICAID - [place] Care Teams Program Director/Air Personality Relationship Specialty Start Date End Date Gerry Lopez MD [address] [place] [address] PCP - General 07/29/22
--- OUTSIDE RECORDS SUMMARY | 2025-06-06 10:52 | XMS_ITS | Patient Health Record ---
Author Organization [facility] Address [address] [place] [address] Care Team Providers Care General Office Dispatcher Name Role Phone Shantell Whitehead MD, Gerry Primary Care Provide r Unavailable Wesley Gibson Jr Unavailable [phone] Allergies Allergen (clinical drug ingredient) Drug/Non [...] Provider Wesley Gibson Jr Referred Address [address] [facility],[place], [place],[address],[place] Referred Provider Specialty Gastroentero logy General Notes Zuleyka Thornton 2024 01:30:07 PM >REQUESTED A [place] REFERRAL FROM [facility] FOR VISIT WITH DR GIBSON ON [...] Celecoxib 100 MG TAKE 1 CAPSULE BY [facility] TWICE A DAY Oral for 30 Active [...] Problem Status W/U Status Risk Notes Problem 769993735 Abnormal finding s in stool (R19.5) Active confirmed Problem 128546845 H. pylori infection (A04.8) Active confirmed Problem 290908637 Gastroesophageal reflux disease, unspecified whether esophagitis present (K21.9) Active confirmed Problem Gastroesophageal reflux disease (598479503) Chronic GERD (K21.9) Active confirmed Vital Signs Temperature 98.5 degrees Fahrenheit 04/10/2025 Blood pressure diastolic 01 mm Hg 04/10/2025 Height 65.75 in 04/10/2025 Blood pressure systolic 001 mm Hg 04/10/2025 Weight 208.4 lbs 04/10/2025 BMI 33.89 kg/m2 04/10/2025 Encounters Encounter Location Date Provider Diagnosis [facility] [address] [place] [address] 04/10/2025 Wesley Gibson Jr Abnormal findings in [...] Start Date Coverage End Date [facility] [address] [place] [phone] [id number] CHERELLE FLOREZ Self - patient is the insured Medical (General) History Medical History History ICD Code Gastroesophageal reflux disease, EGD 02/01 4, H. pylori gastritis, treated Headaches Allergic rhinitis Insomnia Fibromyalgia Osteoarthritis Diabetes mellitus type 2 Colonoscopy 02/23, hyperplastic polyp, 10 -year follow-up Surgical History Surgery Date(Month/Year) tubal ligation tonsillectomy
== END 2025-06-06 10:18 | disposition home or self-care (01) ==
LOC: HO.NEURO 10:17
PROVIDERS: PCP Internal Medicine; Visit Provider Internal Medicine
DX: M79.604 Pain in right leg (principal); M79.605 Pain in left leg
CPT/HCPCS: 95886; 95913

== ENCOUNTER → 2025-06-06 10:21 | Outpatient (BNV) | payer MEDICAID, SELFPAY | PROVIDERS: PCP Internal Medicine; Visit Provider Psychiatry & Neurology Neurology | DX: G62.89 Other specified polyneuropathies (principal) | CPT/HCPCS: 95886; 95913 ==

== ENCOUNTER 2025-06-23 09:37 | Outpatient (REF) | payer MEDICAID, SELFPAY ==
--- OUTSIDE RECORDS SUMMARY | 2025-06-23 09:40 | XMS_ITS | Clinical Summary ---
Author Organization [address] [facility] Address [address] [place] [address] Phone Care Team Providers Care Cops Name Role Phone Gerry Lopez MD Primary [...] Encounters Date Type Department Care Team Description 06/06/[address] [facility] [address] [address] Juan Frey DPM 05/23/2025 2:45 PM EDT Office Visit Orthopedic Surgery [facility] [address] [address] Juan Frey DPM Synovitis and tenosynovitis of left ankle and foot (Primary Dx); Tendinitis of left ankle 05/09/[address] [facility] [address] [address] Agatha Alexandra from Last 3 Months Social History Tobacco [...] 07/06/2025 1:45 PM EDT Office Visit Orthopedic Surgery - [place] [address] [phone] Juan Frey, DPM [address] [address] Health Maintenance Due Date Last Done Comments [...] 2:45 PM EDT Tendinitis of left ankle ANNUAL BMP BLOOD [...] Informed Consent: Site: Foot ligament tendon Result [facility] Juan Frey DPM IN CLINIC/BEDSIDE ORDERAB LES Final Result * Annual BMP Blood Test (04/09/2024) [facility] Annual BMP Blood Test abstracted Result [facility] Provider HEALTH MAINTENANCE Final Result * FIT-DNA (Cologuard) (12/18/2023) [facility] Colorectal Cancer Screening: FIT-DNA (Cologuard) no interpretation , abstracted Result [facility] Provider HEALTH MAINTENANCE Final Result * Lipid panel (06/03/2023) [facility] Triglycerides 0 mg/dL Comment:no interpretation Cholesterol 0 mg/dL Comment:no interpretation HDL 0 mg/dL Comment:no interpretation LDL Cholesterol 0 mg/dL Comment:no interpretation Blood Venous blood specimen / Unknown Result [facility] Provider LAB BLOOD ORDERABLES Judy l Result * Hemoglobin A1c (05/21/2022) [facility] Hemoglobin A1C 0.0 % Comment:no interpretation Blood Venous blood specimen / Unknown Result [facility] Provider LAB BLOOD ORDERABLES Judy l Result * Cervical Cancer Screening: HPV (04/17/2021) [facility] Cervical Cancer Screening: HPV no interpretation , abstracted us Historical Provider HEALTH MAINTENANCE Final Result from Last 3 Months or Most Recently Relevant to Health Maintenance Insurance MEDICAID - [place] Care Teams Cops Relationship Specialty Start Date End Date Gerry Lopez MD [address] [place] [address] PCP - General 07/29/22
--- OUTSIDE RECORDS SUMMARY | 2025-06-23 09:41 | XMS_ITS | Patient Health Record ---
Author Organization [facility] Address [address] [place] [address] Care Team Providers Care Color Tester Name Role Phone Shantell Whitehead MD, Gerry [...] Provider Speciality Internal M edicine Referred Organization [facility] Referred Provider Wesley Gibson Jr Referred Address [address] [facility],[place], [place],[address],[place] Referred Provider Specialty Gastroentero logy General Notes Zuleyka Thornton 2024 01:30:07 PM >REQUESTED A [place] REFERRAL FROM [facility] FOR VISIT WITH DR GIBSON [...] Celecoxib 100 MG TAKE 1 CAPSULE BY [facility] TWICE A DAY Oral for 30 Active [...] Problem Status W/U Status Risk Notes Problem [id number] Abnormal finding s in stool (R19.5) Active confirmed Problem 213303157 H. pylori infection (A04.8) Active confirmed Problem 211112681 Gastroesophageal reflux disease, unspecified whether esophagitis present (K21.9) Active confirmed Problem Gastroesophageal reflux disease (279637626) Chronic GERD (K21.9) Active confirmed Vital Signs Temperature 98.5 degrees Fahrenheit 04/10/2025 Blood pressure diastolic 01 mm Hg 04/10/2025 Height 65.75 in 04/10/2025 Blood pressure systolic 001 mm Hg 04/10/2025 Weight 208.4 lbs 04/10/2025 BMI 33.89 kg/m2 04/10/2025 Encounters Encounter Location Date Provider Diagnosis [facility] [address] [place] [address] 04/10/2025 Wesley Gibson Jr Abnormal findings in [...] Start Date Coverage End Date MEDICAID OF [facility] [address] [place] [phone] [id number] CHERELLE FLOREZ Self - patient is the insured Medical (General) History Medical History History ICD Code Gastroesophageal reflux disease, EGD 02/01 4, H. pylori gastritis, treated Headaches Allergic rhinitis Insomnia Fibromyalgia Osteoarthritis Diabetes mellitus type 2 Colonoscopy 02/23, hyperplastic polyp, 10 -year follow-up Surgical History Surgery Date(Month/Year) tubal ligation tonsillectomy
--- OUTSIDE RECORDS SUMMARY | 2025-06-23 09:41 | XMS_ITS | Encounter Summary ---
Author Organization [employer] Address [address] [facility] [address] [place] [address] Care Team Providers Care Contract Administration Specialist Name Role Phone Gerry Echavarria MD Primary Care Provide r Encounter Details Date Type Department Care Team ([facility] st Contact Info) Description 10/06/2024 Telephone [facility] [address] [place] [address] Gerry Echavarria MD [address] [place], [place] [phone] Social History Tobacco Use Types Packs/Day Years [...] Description 07/25/2025 11:30 AM EDT Office Visit [facility] [address] [place] [address] Gerry Echavarria MD [address] [place] [address] documented as of this encounter Goals Goal [...] as of this encounter Care Teams Contract Administration Specialist Relationship Specialty Start Date End Date Gerry Echavarria MD [address] [place] [address] PCP - General Internal Medicine 07/26/14 [employer] MakerChief Resource Officer 01/08/24 [facility] 09/28/24 02/12/25 [facility] 12/28/24 Heather Pérez Tool And Die MakerChief Resource Officer 05/23/25 documented as of this encounter
== END 2025-06-23 09:38 | disposition home or self-care (01) ==
LOC: HO.MAMMO 09:37
PROVIDERS: Visit Provider Internal Medicine
DX: Z12.31 Encounter for screening mammogram for malignant neoplasm of breast (principal)
CPT/HCPCS: 77063; 77067

== ENCOUNTER → 2025-06-23 10:00 | Outpatient (BNV) | payer MEDICAID, SELFPAY | PROVIDERS: Visit Provider Internal Medicine | DX: Z12.31 Encounter for screening mammogram for malignant neoplasm of breast (principal) | CPT/HCPCS: 77063; 77067 ==

== ENCOUNTER 2025-11-01 05:15 | Emergency (ER) | payer MEDICAID, SELFPAY ==
--- NOTE | ~2025-11-01 | XR_ITS ---
CLINICAL HISTORY: cough 1 view chest x-ray. Comparison: CR/SR - XR CHEST 2 VIEWS - 01/12/25 12:37 EDT Findings: The lungs are adequately expanded. No focal consolidation. No effusion or pneumothorax. Cardiac and mediastinal contours are within normal limits. No acute osseous abnormality Impression: No acute process. This document has been electronically signed by: Raghav Del Rio MD on 11/01/2025 07:24:48
[2025-11-01 05:22] VITALS: BP 126/88; PULSE 82; RESP 20; TEMP 36.7; O2SAT 98; BMI 33.2
[2025-11-01 05:36] LABS: MANUAL DIFF FLAG NO
[2025-11-01 05:38] LABS: Hematocrit 37.4 % (37.0-47.0); Hemoglobin 12.4 g/dl (12.0-16.0); Imm Gran Abs Auto 0.01 X10*3/uL (0.00-0.03); Imm Gran Pct Auto 0.2 % (0.0-0.4); Lymphocytes Absolute Auto 2.0 X10*3/uL (1.2-4.9); Mean Corpuscular HGB Conc 33.2 g/dl (31.0-35.0); Mean Corpuscular Hemoglobin 29.3 pg (27.0-33.0); Mean Corpuscular Volume 88.4 fL (80.0-98.0); NRBC Abs Auto 0.000 X10*3/uL (0.0-0.012); NRBC Pct Auto 0.0 /100WBC (0.0-0.2); Platelet Count 209 X10*3/uL (160-400); Red Blood Count 4.23 X10*6/uL (4.20-5.50); White Blood Count 5.4 X10*3/uL (4.8-10.8)
[2025-11-01 05:50] LABS: IDNOW Serial# 6674DD1D; Strep A Nucleic Acid Negative (Negative)
[2025-11-01 05:57] LABS: Alanine Aminotransferase 24 U/L (0-31); Albumin Level 4.1 g/dL (3.5-5.0); Alkaline Phosphatase 78 U/L (39-117); Anion Gap 14 (12-20); Aspartate Amino Transferase 23 U/L (5-31); Blood Urea Nitrogen 10 mg/dL (9-16); Calcium 9.0 mg/dL (8.4-10.2); Carbon Dioxide 23 mmol/L (22-29); Chloride 107 mmol/L (96-108); Creatinine Clr Calc Pharmacy 94.4; Estimated Glomerular Filt Rate > 60; Potassium 3.7 mmol/L (3.3-5.1); Sodium 140 mmol/L (135-145); Total Protein 7.0 g/dL (6.5-8.0)
[2025-11-01 06:16] LABS: Resp Syncy Virus RNA Qual PCR NEGATIVE (Negative); SARS COV2 PCR INHOUSE NEGATIVE (Negative)
--- NOTE | 2025-11-01 06:22 | ED.URI ---
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 Robert Shearer HPI Narrative: 50-year-old female with a history of fibromyalgia, headaches, GERD diabetes mellitus, chronic back pain, nephrolithiasis who presents emergency department for evaluation of a flu-like illness x6 days. Patient's symptoms include persistent, nonstop cough which is making it difficult for her to sleep, bilateral chest pain worse with coughing, headache, hot and cold sensation with documented fevers at home, dizziness, myalgias, arthralgias and weakness. Patient's cough is nonproductive. She feels short of breath at rest and with exertion. She denied diarrhea. Related Data Home Medications ?Medication ?Instructions ?Recorded ?Confirmed cetirizine 10 mg tablet 1 tab PO DAILY 01/09/21 05/01/25 topiramate 50 mg tablet 1 tab PO DAILY headache 01/09/21 05/01/25 acetaminophen 650 mg 650 mg PO Q8H PRN mild pain 04/30/23 05/01/25 tablet,extended release buspirone 30 mg tablet 30 mg PO BID 04/30/23 05/01/25 rnbrbqbqwe-kvqqsjavcppmn-qradgvkx 1 - 2 tab PO Q6-8H PRN Migraine 04/30/23 05/01/25 50 mg-325 mg-40 mg tablet Headache citalopram 10 mg tablet 20 mg PO DAILY 04/30/23 05/01/25 clonazepam 1 mg tablet 1.5 mg PO BEDTIME 04/30/23 05/01/25 diphenhydramine HCl 25 mg capsule 50 mg PO Q4-6H PRN Anxiety 04/30/23 05/01/25 (Banophen) fluticasone propionate 50 2 spray intranasal DAILY 04/30/23 05/01/25 mcg/actuation nasal spray,suspension ketoconazole 2 % shampoo 1 appl topical 2XW 04/30/23 05/01/25 lidocaine 5 % topical patch 1 patch transdermal Q3D PRN pain 04/30/23 05/01/25 lisinopril 10 mg tablet 10 mg PO DAILY 04/30/23 05/01/25 sodium chloride 0.65 % nasal spray 1 - 2 spray intranasal Q2-3H PRN 04/30/23 05/01/25 aerosol (Saline Nasal) congestion clindamycin phosphate 1 % topical 1 appl topical DAILY 06/24/23 05/01/25 solution tacrolimus 0.1 % topical ointment 1 appl topical DIRECTED 06/24/23 05/01/25 venlafaxine 150 mg 150 mg PO QAM 06/24/23 05/01/25 capsule,extended release 24 hr dicyclomine 20 mg tablet 20 mg PO .COMPLEX 07/13/23 05/01/25 hydrocortisone 2.5 % topical 1 appl topical BID 08/18/23 05/01/25 ointment celecoxib 100 mg capsule 100 mg PO BID 02/03/25 05/01/25 metformin 500 mg tablet 500 mg PO DAILY 02/03/25 05/01/25 omeprazole 20 mg capsule,delayed 20 mg PO BID 02/03/25 05/01/25 release cholecalciferol (vitamin D3) 25 25 mcg PO DAILY 03/09/25 05/01/25 mcg (1,000 unit) capsule Previous Rx's ?Medication ?Instructions ?Recorded gabapentin 100 mg capsule 200 mg (2 x 100 mg) PO TID #180 03/14/24 caps tramadol 50 mg tablet 50 mg PO Q6H PRN pain #20 tabs 02/03/25 methocarbamol 500 mg tablet 500 mg PO BID PRN muscle spasm #60 05/09/25 tabs acetaminophen 500 mg tablet 1,000 mg (2 x 500 mg) PO Q6H PRN 11/01/25 (Tylenol Extra Strength) fever or pain #20 tabs albuterol sulfate 90 mcg/actuation 2 puff inhalation Q4-6H PRN 11/01/25 aerosol inhaler (Ventolin HFA) shortness of breath or wheezing #6.7 grams benzonatate 200 mg capsule 200 mg PO TID PRN cough #15 caps 11/01/25 Allergies Allergy/AdvReac Type Severity Reaction Status Date / Time penicillin G (PENICILLIN G) Allergy Severe ANAPHYLAXIS Verified 11/01/25 05:23 shrimp Allergy Severe Anaphylaxis Verified 11/01/25 05:23 Penicillins (PCN) Allergy Unknown Verified 11/01/25 05:23 Review of Systems Review of Systems: Yes all other systems are reviewed and are negative [facility] Past Medical History Medical History Fibromyalgia Epidermal cyst Pes cavus of both feet Allergies Headache GERD (gastroesophageal reflux disease) Surgical History History of removal of cyst (~06/27/24) History of shoulder surgery History of tubal ligation Hx of tonsillectomy Family History Family History Mother Arthritis Father Diabetes Social History Social History Household Members: Significant Other Are you a primary lawn care specialist to a significant other at home: No Do you presently have visiting nurse or other home services: No Alcohol intake: former Patient Tobacco Use Status: Former Tobacco user Advance Directives: No Advance Directives Information Provided: Yes Do you have a plan to hurt others: No Plan Current occupational status: employed and unemployed Physical Exam Vital Signs: Vital Signs: Last Vital Signs Temp 98.0 F 11/01/25 05:22 Pulse 82 11/01/25 05:22 Resp 20 11/01/25 05:22 BP 126/88 11/01/25 05:22 Pulse Ox 98 11/01/25 05:22 O2 Del Method Room Air 11/01/25 05:22 BMI result Body Mass Index 33.2 Vital signs were normal Exam: General: Awake, alert in no distress Head: Normocephalic, atraumatic EENT: PERRL, sclera and conjunctiva are normal, mouth with no erythema or exudates Neck: Supple, no adenopathy Lung: breath sounds symmetric, diffuse wheezing, diffuse rhonchi, no rales Chest: symmetric movement, nontender Heart: regular rate and rhythm, normal S1, S2 no murmurs or rubs Abdomen: soft, non-tender, nondistended, normal bowel sounds Back: no vertebral tenderness, no CVAT Extremities: no deformities, moves all extremities symmetrically, no edema Neuro: Awake, alert, oriented, normal speech, cranial nerves 2-12 intact, moves all extremities symmetrically Psych: Pleasant, cooperative Medical Decision Making Medical Decision Making MDM Narrative: 50-year-old female with a history of fibromyalgia, headaches, GERD diabetes mellitus, chronic back pain, nephrolithiasis who presents emergency department for evaluation of a flu-like illness x6 days with symptoms including persistent, nonstop, nonproductive cough , bilateral pleuritic chest pain, fever, chill headache, dizziness, myalgias, arthralgias and weakness. Vital signs were normal. Lung exam did reveal diffuse wheezing and rhonchi with no rales. Differential diagnosis: ?Includes but is not limited to viral syndrome, COVID-19, influenza, RSV, pneumonia, bronchitis, bronchospasm anemia, electrolyte abnormalities Course: 06:58 My interpretation patient's laboratory evaluation is as follows: COVID-19 and RSV were negative. Influenza was positive for influenza A. CBC was normal. CMP revealed an elevated glucose of 212. Chest x-ray revealed no pneumonia on my interpretation. The patient's symptoms are consistent with acute influenza a and I did discuss this with her. Patient was prescribed albuterol inhaler 2 puffs every 4-6 hours as needed for cough and wheezing, Tessalon Perles 200 mg TID as needed for cough and Tylenol 1000 mg q.6 hours as needed for fever and myalgias. I did discuss complications of influenza with the patient. Patient was given printed and verbal instructions and discharged home. Differential Diagnosis Differential Diagnoses: The differential diagnosis associated with the presentation includes (See above) Admission/Observation Consideration of admission/observation: Escalation of care including admission/observation considered (Yes) Lab Data MDM Lab Attestation statement: I reviewed the patient's lab results. 11/01/25 05:30 11/01/25 05:30 Labs: Lab Results 11/01/25 Range/Units 05:30 WBC 5.4 (4.8-10.8) X10*3/uL RBC 4.23 (4.20-5.50) X10*6/uL Hgb 12.4 (12.0-16.0) g/dl Hct 37.4 (37.0-47.0) % MCV 88.4 (80.0-98.0) fL MCH 29.3 (27.0-33.0) pg MCHC 33.2 (31.0-35.0) g/dl RDW 13.5 (11.0-16.0) % Plt Count 209 (160-400) X10*3/uL MPV 9.8 (9.4-12.3) fL Immature Gran % (Auto) 0.2 (0.0-0.4) % Neut % (Auto) 53.8 (45-73) % Lymph % (Auto) 36.9 (20-40) % Republic % (Auto) 7.2 (2-11) % Eos % (Auto) 1.7 (0-4) % Baso % (Auto) 0.2 (0-2) % Lymph # (Auto) 2.0 (1.2-4.9) X10*3/uL Republic # (Auto) 0.4 (0.1-1.2) X10*3/uL Eos # (Auto) 0.1 (0.0-0.4) X10*3/uL Baso # (Auto) 0.0 (0.0-0.2) X10*3/uL Abs Immat Gran (auto) 0.01 (0.00-0.03) X10*3/uL Absolute Neuts (auto) 2.9 (2.0-8.3) x10*3/uL Absolute Nucleated RBC 0.000 (0.0-0.012) X10*3/uL Nucleated RBC % (auto) 0.0 (0.0-0.2) /100WBC Sodium 140 (135-145) mmol/L Potassium 3.7 (3.3-5.1) mmol/L Chloride 107 (96-108) mmol/L Carbon Dioxide 23 (22-29) mmol/L Anion Gap 14 (12-20) BUN 10 (9-16) mg/dL Creatinine 0.83 (0.5-1.4) mg/dL Estim Creat Clear Calc 94.4 Estimated GFR > 60 Random Glucose 221 H (60-115) mg/dL Calcium 9.0 D (8.4-10.2) mg/dL Total Bilirubin 0.3 (0.0-1.0) mg/dL AST 23 (5-31) U/L ALT 24 (0-31) U/L Alkaline Phosphatase 78 (39-117) U/L Total Protein 7.0 (6.5-8.0) g/dL Albumin 4.1 (3.5-5.0) g/dL Influenza Type A (PCR) POSITIVE A (Negative) Influenza Type B (PCR) NEGATIVE (Negative) RSV RNA Qual (PCR) NEGATIVE (Negative) SARS-CoV-2 RNA (RT-PCR) NEGATIVE (Negative) S. pyogenes GrpA VALENTIN Negative (Negative) Independent Interpretation I performed an independent interpretation of an: Plain X-Ray Interpretation: My interpretation patient's one-view chest x-ray is as follows: No acute pneumonia Radiology Impression Discussion of test interpretation with radiology: I have reviewed the radiologist's reading. Prescription Management I considered prescription management with: Pain Medication (I prescribed extra-strength Tylenol 500 mg pills, 2 pills every 4-6 hours as needed for pain or fever) and Other (I prescribed a bronchodilator inhaler: Albuterol inhaler 2 puffs q.4 to 6 hours as needed for cough, shortness of breath) Chronic Conditions Patient?s care impacted by: Diabetes Discharge Plan Discharge Clinical Impression: Influenza A, Acute bronchospasm Patient Disposition: Home, Self-Care Instructions: Bronchospasm (ED) Additional Instructions: You had a complete blood count and comprehensive metabolic panel which was unremarkable except for an elevated blood sugar (glucose) of 221. Your COVID 19 and RSV tests were negative. Your influenza test was positive for influenza A. Influenza is a virus that can last 1-2 weeks and this explains your symptoms. On your lung exam, you have wheezing (bronchospasm) which is making you short of breath. Use the albuterol inhaler as directed, 2 puffs every 4-6 hours as needed for cough and shortness of breath. Stop using the ezdi-zca-uypbpfp medications (TheraFlu, DayQuil, NyQuil). You can continue to use your tramadol as prescribed by your providers. Take Tylenol (acetaminophen) 500 mg pills, 2 pills every 6 hours as needed for pain or fever. Take Tessalon Perles () 200 mg pills, 1 pill 3 times a day as needed for cough. Follow-up with your doctor in 2 days. Please return to the emergency department if your symptoms get worse or if you develop any symptoms that are concerning to you. Prescriptions: New albuterol sulfate [Ventolin HFA] 90 mcg/actuation HFA aerosol inhaler 2 puff inhalation Q4-6H PRN (Reason: shortness of breath or wheezing) Qty: 6.7 0RF acetaminophen [Tylenol Extra Strength] 500 mg tablet 1,000 mg PO Q6H PRN (Reason: fever or pain) Qty: 20 0RF benzonatate 200 mg capsule 200 mg PO TID PRN (Reason: cough) Qty: 15 0RF No Action methocarbamol 500 mg tablet 500 mg PO BID PRN (Reason: muscle spasm) Qty: 60 1RF Rx Instructions: No driving while taking this medication. Do no take with alcohol or other COLLAR STAY FUSER TENDER Depressants cetirizine 10 mg tablet 1 tab PO DAILY topiramate 50 mg tablet 1 tab PO DAILY ketoconazole 2 % shampoo 1 appl topical 2XW buspirone 30 mg tablet 30 mg PO BID Saline Nasal 0.65 % aerosol,spray 1 - 2 spray intranasal Q2-3H PRN (Reason: congestion) lidocaine 5 % adhesive patch,medicated 1 patch transdermal Q3D PRN (Reason: pain) diphenhydramine HCl [Banophen] 25 mg capsule 50 mg PO Q4-6H PRN (Reason: Anxiety) mthjkofkjo-hxmrlprzbuyqf-vjzh 50-325-40 mg tablet 1 - 2 tab PO Q6-8H PRN (Reason: Migraine Headache) acetaminophen 650 mg tablet extended release 650 mg PO Q8H PRN (Reason: mild pain) clonazepam 1 mg tablet 1.5 mg PO BEDTIME lisinopril 10 mg tablet 10 mg PO DAILY fluticasone propionate 50 mcg/actuation spray,suspension 2 spray intranasal DAILY citalopram 10 mg tablet 20 mg PO DAILY gabapentin 100 mg capsule 200 mg PO TID Qty: 180 2RF celecoxib 100 mg capsule 100 mg PO BID metformin 500 mg tablet 500 mg PO DAILY tramadol 50 mg tablet 50 mg PO Q6H PRN (Reason: pain) Qty: 20 0RF tacrolimus 0.1 % ointment 1 appl topical DIRECTED venlafaxine 150 mg capsule,extended release 24hr 150 mg PO QAM clindamycin phosphate 1 % solution 1 appl topical DAILY dicyclomine 20 mg tablet 20 mg PO .COMPLEX Rx Instructions: 20 mg orally before breakfast, lunch, and dinner; hydrocortisone 2.5 % ointment 1 appl topical BID omeprazole 20 mg capsule,delayed release(DR/EC) 20 mg PO BID cholecalciferol (vitamin D3) 25 mcg (1,000 unit) capsule 25 mcg PO DAILY Print Language: Guamanian
--- OUTSIDE RECORDS SUMMARY | 2025-11-01 06:27 | XMS_ITS | Encounter Summary ---
Author Organization [employer] Address [address] [place] [address] Care Team Providers Care Industrial Refrigeration Mechanic Name Role Phone Gerry Echavarria MD Primary Care Provide r Jeannine Allen RN Unavailable [phone] Yoly Georges Unavailable Reason for Visit * Reason Comments Care Management C3CM COMPLEX INITIAL ASSESSMENT/ ENROLLMENT Encounter Details Date Type Department Care Team (Late st Contact Info) Description 09/18/2025 Patient Outreach [facility] [address], [place] [phone] Gerry Echavarria MD [address] [place], [place] [phone] Care Management (C3 COMPLEX INITIAL ASSESSMENT/ ENROLLMENT/) Social History Tobacco Use Types Packs/Day Years Used Date Smoking Tobacco: Former Cigarettes 1.5 20 1 989 - 2009 Passive Smoke Exposure: Past Smokeless Tobacco: Never Alcohol Use Standard Drinks/Week Comments Not Currently 0 (1 standard drink = 0.6 oz pur e alcohol) Depression Answer Date Recorded Patient Health Questionnaire-9 Score 15 09/18/2025 Patient Health Questionnaire-9 Score 15 09/18/2025 Last PHQ-9: Questionnaire Data Not on file 1 11/18/2024 Housing Stability Answer Date Recorded What is your housing situation today? I have bird chávez 04/27/[address] you li ve. Do you have problems with any of the following? None of the above 04/27/2024 Food Insecurity Answer Date Recorded Within the past 12 months, y ou worried that your food would run out before you got money to buy more: Sometimes True 2024 Within the past 12 months,th e food you bought just didn't last and you didn't have enough money to get more: Sometimes True 09/13/2025 Transportation Answer Date Recorded In the past 12 months, has l ack of transportation kept you from medical appts, meetings, work or from getting things needed for daily living? Yes, it has kept me from medical appointments or getting medications. 09/13/2025 Utilities Answer Date Recorded In the past 12 months, has t he electric, gas, oil or water company threatened to shut off services in your home? No 04/27/2024 Depression Answer Date Recorded Patient Health Questionnaire-2 Score 3 09/18/2025 Internet Access Answer Date Recorded Internet Access Q1 Yes 07/04/2024 Internet Access Q2 Not on file 07/04/2024 Comments No Sex and Gender Information Value Date Recorded Sex Assigned at Female 09/01/2022 10:15 AM EDT Legal Sex Female 10:15 AM EDT Gender Identity Female 09/01/2022 10:15 AM EDT Sexual Orientation Straight 09/01/2022 10 :15 AM EDT documented as of this encounter Functional Status * Over the past 2 weeks, how often have you been bothered by any of the following problems? Question Answer Date of Assessment Author Patient Health Questionnaire -2 Score 3 09/18/2025 1:48 PM Jeannine Petersen RN * Little interest or pleasure in doing things Answer Date of Assessment Author Several days 09/18/2025 1:48 PM Chasidy Petersen RN * Feeling down, depressed, or hopeless Answer Date of Assessment Author More than half the days 09/18/2025 1:48 PM Jeannine Palacio RN * Trouble falling or staying asleep, or sleeping too much Answer Date of Assessment Author More than half the days 09/18/2025 1:48 PM Jeannine Palacio RN * Feeling tired or having little energy Answer Date of Assessment Author Nearly every day 09/18/2025 1:48 PM Bennie Petersen RN * Poor appetite or overeating Answer Date of Assessment Author Several days 09/18/2025 1:48 PM Chasidy Petersen RN * Feeling bad about yourself - or that you are a failure or have let yourself or your family down Answer Date of Assessment Author Nearly every day 09/18/2025 1:48 PM Bennie Petersen RN * Trouble concentrating on things, such as reading the newspaper or watching television Answer Date of Assessment Author More than half the days 09/18/2025 1:48 PM Jeannine Palacio RN * Moving or speaking so slowly that other people could have noticed? Or the opposite - being so fidgety or restless that you have been moving around a lot more than usual. Answer Date of Assessment Author Several days 09/18/2025 1:48 PM Chasidy Petersen RN * Thoughts that you would be better off or hurting yourself in some way Answer Date of Assessment Author Not at all 09/18/2025 1:48 PM Chasidy Petersen RN * Patient Health Questionnaire-9 Score Answer Date of Assessment Author 15 09/18/2025 1:48 PM Chasidy Petersen RN * Over the last 2 weeks, how often have you been bothered by any of the following problems? Question Answer Date of Assessment Author Feeling nervous, anxious, or on edge 2 09/18/2025 1:51 PM Jeannine Petersen RN Not being able to stop or co ntrol worrying 2 09/18/2025 1:51 PM Jeannine Petersen RN Worrying too much about diff erent things 2 09/18/2025 1:51 PM Jeannine Petersen RN Trouble relaxing 2 09/18/2025 1:51 PM Jeannine Palacio RN Being so restless that it is hard to sit still 2 09/18/2025 1:51 PM Jeannine Petersen RN Becoming easily annoyed or irritable 2 09/18/2025 1:51 PM Jeannine Petersen RN Feeling afraid as if somethi ng awful might happen 3 09/18/2025 1:51 PM Jeannine Petersen RN MARIELLE-7 Total Score 15 09/18/2025 1:51 PM EST Jeannine Allen RN * How difficult have these problems made it for you to do your work, take care of things at home, or get along with other people? Answer Date of Assessment Author Very difficult 09/18/2025 1:48 PM Chasidy Petersen RN documented as of this encounter Plan of Treatment Upcoming Encounters Date Type Department Care Team (Late st Contact Info) Description 11/07/2025 11:00 AM EST Office Visit [facility] [address] [place] [address] [phone] Gerry Echavarria MD [address] [place] [address] 11/17/2025 9:30 AM EST Medication Management [facility] [address], [place] [phone] Sumaya Jenkins PharmD [address] [place] [address] documented as of this encounter Goals Goal Patient Goal Type Associated Problems Recent Progress Patient-Stated? Author Blood Pressure < 140/90 Blood Pressure Essential hypertension 100/84(2024 11:46 AM EDT) No Angel Emmanuel, Roney Note: BP at goal every other day; encouraged lifestyle changes to promote BP control Follow the DASH diet Diet Essential hypertension On track( 024 4:06 PM EDT) No Angel Emmanuel, Roney Note: Look for low-sodium products Increase physical activity Exercise Essential hypertension On track( 024 4:06 PM EDT) Angel Adam, Roney Note: inactive, advised some amount of cardio can help with heart health Help patients manage their type 2 diabetes Care Plan Help patients manage their type 2 diabetes No Yoly Georges Weekly blood pressure task Care Plan Weekly blood pressure task No Yoly Georges Help patients manage their type 2 diabetes Care Plan Help patients manage their type 2 diabetes No Yoly Georges Patient has chronic kidney disease Care Plan Patient has chronic kidney disease No Yoly Georges Weekly blood pressure task Care Plan Weekly blood pressure task No Yoly Georges Patient has chronic kidney disease Care Plan Patient has chronic kidney disease No Yoly Georges Weekly blood pressure task Care Plan Weekly blood pressure task No Yoly Georges Weekly blood pressure task Care Plan Weekly blood pressure task No Yoly Georges Patient has chronic kidney disease Care Plan Patient has chronic kidney disease No Yoly Georges Patient has chronic kidney disease Care Plan Patient has chronic kidney disease No Yoly Georges Weekly blood pressure task Care Plan Weekly blood pressure task No Jeannine Allen RN Weekly blood pressure task Care Plan Weekly blood pressure task No Jeannine Allen RN Patient has chronic kidney disease Care Plan Patient has chronic kidney disease No Jeannine Allen RN Patient has chronic kidney disease Care Plan Patient has chronic kidney disease No Jeannine Allen RN Weekly blood pressure task Care Plan Weekly blood pressure task No Yoly Georges Weekly blood pressure task Care Plan Weekly blood pressure task No Yoly Georges Patient has chronic kidney disease Care Plan Patient has chronic kidney disease No Yoly Georges Patient has chronic kidney disease Care Plan Patient has chronic kidney disease No Yoly Georges documented as of this encounter Visit Diagnoses Diagnosis Obesity (BMI 30.0-34.9)- Primary documented in this encounter Additional Health Concerns Active Problems Noted Date Diagnosed Date Help patients manage their type 2 diabetes 09/13 Weekly blood pressure task 09/13/2025 Help patients manage their type 2 diabetes 09/13 Patient has chronic kidney disease 09/13/2025 Weekly blood pressure task 09/13/2025 Patient has chronic kidney disease 09/13/2025 Weekly blood pressure task 09/15/2025 Weekly blood pressure task 09/15/2025 Patient has chronic kidney disease 09/15/2025 Patient has chronic kidney disease 09/15/2025 Weekly blood pressure task 09/18/2025 Weekly blood pressure task 09/18/2025 Patient has chronic kidney disease 09/18/2025 Patient has chronic kidney disease 09/18/2025 Weekly blood pressure task 09/18/2025 Weekly blood pressure task 09/18/2025 Patient has chronic kidney disease 09/18/2025 Patient has chronic kidney disease 09/18/2025 Assessment Noted Time PHQ-9 Depression Total Score: 15 025 1:48 PM EST documented as of this encounter Care Teams Industrial Refrigeration Mechanic Relationship Specialty Start Date End Date Gerry Echavarria MD [address] [place], [place] [phone] PCP - General Internal Medicine 07/26/14 Jeannine Allen, BLANCA [address] [place], [place] [phone] Registered Nurse Family Medicine 08/28/25 Yoly Georges 08/29/25 Theron New Weight ClerkStandard Machine Stitcher 01/08/24 [employer] 12/28/24 Heather Pérez Weight ClerkStandard Machine Stitcher 05/23/25 Radha [employer] Weight ClerkStandard Machine Stitcher 07/28/25 documented as of this encounter
--- OUTSIDE RECORDS SUMMARY | 2025-11-01 06:27 | XMS_ITS | Encounter Summary ---
Author Organization [employer] Address [address] [place] [address] Care Team Providers Care Road Marker Name Role Phone Gerry Echavarria MD Primary Care Provide r Jeannine Allen RN Unavailable [phone] Yoly Georges Unavailable Reason for Referral * Consultation (Routine) - Closed Specialty Diagnoses / Procedures Referred By Contsanket t Referred To Contact Urology Diagnoses Nephrolithiasis Krystina Haij MD [address] [place] [address] Phone: tel: fax: [facility] Referral ID Status Reason Start Date Expiration Date V isits Requested Visits Authorized [id number] Closed Specialty Services Required 01/24/2025 01/24/2026 6 6 Encounter Details Date Type Department Care Team (Late st Contact Info) Description 01/21/2025 Orders Only [facility] [address] [place] [address] Krystina Haji MD [address] [place] [address] Nephrolithiasis (Primary Dx) Social History Tobacco Use [...] t he electric, gas, oil or water [employer] threatened to shut off services in your [...] Description 11/07/2025 11:00 AM EST Office Visit [facility] [address] [place] [phone] Gerry Echavarria MD [address] [place] [address] 11/17/2025 9:30 AM EST Medication Management [facility] [address] [place] [phone] Sumaya Jenkins PharmD [address] [place] [address] Scheduled Referrals Name Type Priority Associated Diagnoses Orde r Schedule Referral to Urology Outpatient Referral Routine Nephrolithiasis Expected: 01/21/2025 (Approximate), Expires: 01/21/2026 documented as of this encounter Goals Goal Patient Goal Type Associated Problems Recent Progress Patient-Stated? Author Blood Pressure < 140/90 Blood Pressure Essential hypertension 100/84(2024 11:46 AM EDT) No Angel Emmanuel PharmD Note: [...] documented as of this encounter Care Teams Road Marker Relationship Specialty Start Date End Date Gerry Echavarria MD [address] [place] [phone] PCP - General Internal Medicine 07/26/14 Jeannine Allen, BLANCA [address] [place] [address] Registered Nurse Family Medicine 08/28/25 Yoly Georges 08/29/25 Theron New [employer] NurseMachine Slat Basket Maker 01/08/24 [facility] 09/28/24 02/12/25 [employer] 12/28/24 Heather Pérez [employer] NurseMachine Slat Basket Maker 05/23/25 Radha Sims [employer] NurseMachine Slat Basket Maker 07/28/25 documented as of this encounter
--- OUTSIDE RECORDS SUMMARY | 2025-11-01 06:27 | XMS_ITS | Encounter Summary ---
Author Organization [employer] Address [address] [place] [address] Care Team Providers Care Powder Monkey Name Role Phone Gerry Echavarria MD Primary Care Provide r Jeannine Allen RN Unavailable [phone] Yoly Georges Unavailable Reason for Visit * Reason Onset Date Comments Med Refill 09/26/2025 Encounter Details Date Type Department Care Team (Late st Contact Info) Description 09/25/2025 Refill [facility] [address] [place], [place] [phone] Gerry Echavarria MD [address] [place], [place] [phone] Essential hypertension Social History Tobacco Use Types Packs/Day Years [...] is your housing situation today? I have bidr chávez 04/27/[address] you [...] Description 11/07/2025 11:00 AM EST Office Visit [facility] [address] [place] [phone] Gerry Echavarria MD [address] [place] [phone] 11/17/2025 9:30 AM EST Medication Management [facility] [address] [place] [phone] Sumaya Jenkins PharmD [address] [place] [phone] documented as of this encounter Goals Goal [...] Patient has chronic kidney disease No Jeannine Allen, BLANCA Patient has chronic kidney disease Care Plan [...] Plan Weekly blood pressure task No Jeannine Allen, BLANCA Patient has chronic kidney disease Care Plan [...] as of this encounter Visit Diagnoses Diagnosis Essential hypertension Unspecified essential hypertension documented in this encounter Additional Health Concerns [...] kidney disease 09/18/2025 Weekly blood pressure task 09/19/2025 Weekly blood pressure task 09/19/2025 Patient has chronic kidney disease 09/19/2025 Patient has chronic kidney disease 09/19/2025 Weekly blood pressure task 09/19/2025 Weekly blood pressure task 09/19/2025 Patient has chronic kidney disease 09/19/2025 Patient has chronic kidney disease 09/19/2025 Weekly blood pressure task 09/20/2025 Weekly blood pressure task 09/20/2025 Patient has chronic kidney disease 09/20/2025 Patient has chronic kidney disease 09/20/2025 Assessment Noted Time PHQ-9 Depression Total Score: 15 025 1:48 PM EST documented as of this encounter Care Teams Powder Monkey Relationship Specialty Start Date End Date Gerry Echavarria MD [address] [place], [place] [phone] PCP - General Internal Medicine 07/26/14 Jeannine Allen, BLANCA [address] [place], [place] [phone] Registered Nurse Family Medicine 08/28/25 Yoly Georges 08/29/25 Theron New Jaw SkinnerMuseum Director 01/08/24 [employer] 12/28/24 Heather Pérez Jaw SkinnerMuseum Director 05/23/25 Radha Sims Jaw SkinnerMuseum Director 07/28/25 documented as of this encounter
--- OUTSIDE RECORDS SUMMARY | 2025-11-01 06:27 | XMS_ITS | Encounter Summary ---
Author Organization [employer] Address [address] 7[address] [place] [address] Care Team Providers Care Fishing Vessel Deckhand Name Role Phone Gerry Echavarria MD Primary Care Provide r Jeannine Allen RN Unavailable [phone] Yoly Georges Unavailable Encounter Details Date Type Department Care Team (Late st Contact Info) Description 10/06/2024 Telephone [facility] [address] [place] [address] Gerry Echavarria MD [address] [place], [place] [phone] Social History Tobacco Use Types Packs/Day Years [...] Description 11/07/2025 11:00 AM EST Office Visit [facility] [address] [place] [phone] Gerry Echavarria MD [address] [place] [phone] 11/17/2025 9:30 AM EST Medication Management [facility] [address] [place] [phone] Sumaya Jenkins PharmD [address] [place] [phone] documented as of this encounter Goals Goal [...] documented as of this encounter Care Teams Fishing Vessel Deckhand Relationship Specialty Start Date End Date Gerry Echavarria MD [address] [place] [address] PCP - General Internal Medicine 07/26/14 Jeannine Allen RN [address] [place] [address] Registered Nurse Family Medicine 08/28/25 Yoly Georges 08/29/25 Theron New Bankruptcy Legal AssistantForge Operator Helper 01/08/24 [facility] 09/28/24 02/12/25 [facility] 12/28/24 Heather Pérez Bankruptcy Legal AssistantForge Operator Helper 05/23/25 Radha Sims Bankruptcy Legal AssistantForge Operator Helper 07/28/25 documented as of this encounter
--- OUTSIDE RECORDS SUMMARY | 2025-11-01 06:27 | XMS_ITS | Clinical Summary ---
Author Organization [facility] Address [address] [place] [address] Phone Care Team Providers Care Watchstander Name Role Phone Gerry Lopez MD Primary [...] Encounters Date Type Department Care Team Description 09/05/2025 1:15 PM EST Office Visit Orthopedic Surgery - [address] [phone] Juan Frey, DPM Tendinitis of left ankle (Primary Dx); Synovitis and tenosynovitis of left ankle and foot; Disorder of ligament of foot, left; Primary osteoarthritis of both feet; Tendinitis of right ankle from Last 3 Months Social History [...] Care Team (Late st Contact Info) Description 11/06/2025 1:15 PM EST Office Visit Orthopedic Surgery - [place] [address] [address] Juan Frey, DPM [address] [address] Health Maintenance Due Date Last Done Comments Breast Cancer Screening 1975 Drug Screen 1976 Non-Opioid Controlled Substance Agreement 1976 Diabetes: Annual Foot Exam 1986 Diabetes: Annual Retina Eye Exam 1986 HIV Screening 10/01/2022 Hepatitis C Screening 10/01/2022 Social Influencers of Health Screening 10/01/2022 Diabetes: Annual Urine Albumin-Creatinine Ratio (uACR) 10/12/2024 Depression Screening 11/02/2024 COVID-19 Vaccine ( season) 2025 11/19/2021, 04/28/2021, 03/28/2021 Influenza Vaccine (#1) 2025 01/03/2014 Diabetes: Blood [...] Cholesterol Screening (Lipid Panel) 08/18/2029 08/18/2024, 06/03/2023 RSV Immunization Adult Patients (1 - 1-dose 75+ series) 2051 Hepatitis [...] Diagnosis Comments INJECTION TENDON OR LIGAMENT Routine 09/05/2025 1:15 PM EST Disorder of ligament of foot, left ANNUAL BMP BLOOD TEST Routine 04/09/2024 FIT-DNA Routine 12/18/2023 LIPID PANEL Routine 06/03/2023 HEMOGLOBIN A1C Routine 05/21/2022 HPV Routine 04/17/2021 from Last 3 Months or Most Recently Relevant to Health Maintenance Results * Injection tendon or ligament (09/05/2025 1:15 PM EST) Juan Garcia DPM - 09/05/2025 1:15 PM EST Juan Frey DPM 09/05/2025 5:45 PM Injection tendon or ligament Indications: pain Details: 25 G needle Medications: 0.5 mL lidocaine (PF) 1 %; 20 mg triamcinolone acetonide 40 mg/mL Informed Consent: Site: Foot ligament tendon Result [facility] Juan Frey DPM IN CLINIC/BEDSIDE ORDERAB LES Final Result * Annual BMP Blood Test (04/09/2024) [facility] Annual BMP Blood Test abstracted Result On license of [facility] HEALTH MAINTENANCE Final Result * FIT-DNA (Cologuard) (12/18/2023) [facility] Colorectal Cancer Screening: FIT-DNA (Cologuard) no interpretation , abstracted Result On license of [facility] HEALTH MAINTENANCE Final Result * Lipid panel (06/03/2023) [facility] Triglycerides 0 mg/dL Comment:no interpretation Cholesterol 0 mg/dL Comment:no interpretation HDL 0 mg/dL Comment:no interpretation LDL Cholesterol 0 mg/dL Comment:no interpretation Blood Venous blood specimen / Unknown Result [facility] Provider LAB BLOOD ORDERABLES Judy l Result * Hemoglobin A1c (05/21/2022) [facility] Hemoglobin A1C 0.0 % Comment:no interpretation Blood Venous blood specimen / Unknown Result [facility] Provider LAB BLOOD ORDERABLES Judy l Result * Cervical Cancer Screening: HPV (04/17/2021) [facility] Cervical Cancer Screening: HPV no interpretation , abstracted Result On license of [facility] HEALTH MAINTENANCE Final Result from Last 3 Months or Most Recently Relevant to Health Maintenance Insurance MEDICAID - [place] Care Teams Watchstander Relationship Specialty Start Date End Date Gerry Lopez MD [address] [place] [phone] PCP - General 07/29/22
--- OUTSIDE RECORDS SUMMARY | 2025-11-01 06:27 | XMS_ITS | Encounter Summary ---
Author Organization [employer] Address [address] [place] [address] Care Team Providers Care Tool And Die Maker/Designer Name Role Phone Gerry Echavarria MD Primary Care Provide r Jeannine Allen RN Unavailable [phone] Yoly Georges Unavailable Reason for Visit * Reason Onset Date Comments chart prep 10/30/2025 Encounter Details Date Type Department Care Team ([facility] st Contact Info) Description 10/30/2025 Telephone [facility] [address] [place], [place] [phone] Gerry Echavarria MD [address] [place], [place] [phone] chart prep Social History Tobacco Use Types Packs/Day Years [...] encounter Miscellaneous Notes * Telephone Encounter - Jessica Aguayo MA - 10/30/2025 1:11 PM EST Chart Prep Labs: done Images: done Referrals: complete Vaccines due: Covid, Flu, and PCV20 Screenings: foot exam and HIV screening Overdue care gaps: A1c, Glucose, and SBIRT documented in this encounter Plan of Treatment Upcoming Encounters Date Type Department Care Team (Late st Contact Info) Description 11/07/2025 11:00 AM EST Office Visit [facility] [address] [place] [address] [place] [address] Gerry Echavarria MD [address] [place] [address] [place] [address] 11/17/2025 9:30 AM EST Medication Management [facility] [address] [place] [address] [place] [address] Sumaya Jenkins, AroldoD [address] [facility] [place] [address] documented as of this encounter Goals Goal Patient Goal Type Associated Problems Recent Progress Patient-Stated? Author Blood Pressure < 140/90 Blood Pressure Essential hypertension 100/84(07/25 11:46 AM EDT) No Angel Emmanuel PharmD Note: BP at goal every other day; encouraged lifestyle changes to promote BP control Follow the DASH diet Diet Essential hypertension On track(2023 4:06 PM EDT) No Angel Emmanuel PharmD Note: Look for low-sodium products Increase physical activity Exercise Essential hypertension On track(2023 4:06 PM EDT) No Angel Emmanuel PharmD [...] blood pressure task No Jeannine Allen, BLANCA Weekly blood pressure task Care Plan Weekly [...] Care Plan Weekly blood pressure task No Marley Hernandez LPN Weekly blood pressure task Care Plan Weekly blood pressure task No Marley Hernandez LPN Patient has chronic kidney disease Care Plan Patient has chronic kidney disease No Marley Hernandez LPN Patient has chronic kidney disease Care Plan Patient has chronic kidney disease No Malrey Hernandez LPN Weekly blood pressure task Care Plan Weekly [...] Care Plan Weekly blood pressure task No Cha Green Weekly blood pressure task Care Plan Weekly blood pressure task No Cha Green Patient has chronic kidney disease Care Plan Patient has chronic kidney disease No Cha Green Patient has chronic kidney disease Care Plan Patient has chronic kidney disease No Cha Green Weekly blood pressure task Care Plan Weekly blood pressure task No Gerry Echavarria MD Weekly blood pressure task Care Plan Weekly blood pressure task No Gerry Echavarria MD Patient has chronic kidney disease Care Plan Patient has chronic kidney disease No Gerry Echavarria MD Patient has chronic kidney disease Care Plan Patient has chronic kidney disease No Gerry Echavarria MD Weekly blood pressure task Care Plan Weekly [...] Care Plan Weekly blood pressure task No Radha Milan MA Weekly blood pressure task Care Plan Weekly blood pressure task No Radha Milan MA Patient has chronic kidney disease Care Plan Patient has chronic kidney disease No Radha Milan MA Patient has chronic kidney disease Care Plan Patient has chronic kidney disease No Radha Milan MA Weekly blood pressure task Care Plan Weekly blood pressure task No Sumaya Jenkins PharmD Weekly blood pressure task Care Plan Weekly blood pressure task No Sumaya Jenkins PharmD Patient has chronic kidney disease Care Plan Patient has chronic kidney disease No Sumaya Jenkins, PharmD Patient has chronic kidney disease Care Plan Patient has chronic kidney disease No Sumaya Jenkins PharmD Weekly blood pressure task Care Plan Weekly [...] Care Plan Weekly blood pressure task No Sumaya Jenkins PharmMamta Weekly blood pressure task Care Plan Weekly blood pressure task No Sumaya Jenkins PharmD Patient has chronic kidney disease Care Plan Patient has chronic kidney disease No Sumaya Jenkins, PharmD Patient has chronic kidney disease Care Plan Patient has chronic kidney disease No Sumaya Jenkins, PharmD Weekly blood pressure task Care Plan Weekly blood pressure task No Иван Canas Weekly blood pressure task Care Plan Weekly blood pressure task No Иван Canas Patient has chronic kidney disease Care Plan Patient has chronic kidney disease No Иван Canas Patient has chronic kidney disease Care Plan Patient has chronic kidney disease No Иван Canas Weekly blood pressure task Care Plan Weekly blood pressure task No Jessica Aguayo MA Weekly blood pressure task Care Plan Weekly blood pressure task No Jessica Aguayo MA Patient has chronic kidney disease Care Plan Patient has chronic kidney disease No Jessica Aguayo MA Patient has chronic kidney disease Care Plan Patient has chronic kidney disease Jessica Arriaza MA Weekly blood pressure task Care Plan Weekly blood pressure task No Radha Milan MA Weekly blood pressure task Care Plan Weekly blood pressure task No Radha Milan MA Patient has chronic kidney disease Care Plan Patient has chronic kidney disease No Radha Milan MA Patient has chronic kidney disease Care Plan Patient has chronic kidney disease No Radha Milan MA documented as of this encounter Visit Diagnoses Not on filedocumented in this encounter Additional Health Concerns Active [...] 09/20/2025 Patient has chronic kidney disease 09/20/2025 Weekly blood pressure task 09/26/2025 Weekly blood pressure task 09/26/2025 Patient has chronic kidney disease 09/26/2025 Patient has chronic kidney disease 09/26/2025 Weekly blood pressure task 09/26/2025 Weekly blood pressure task 09/26/2025 Patient has chronic kidney disease 09/26/2025 Patient has chronic kidney disease 09/26/2025 Weekly blood pressure task 09/26/2025 Weekly blood pressure task 09/26/2025 Patient has chronic kidney disease 09/26/2025 Patient has chronic kidney disease 09/26/2025 Weekly blood pressure task 09/26/2025 Weekly blood pressure task 09/26/2025 Patient has chronic kidney disease 09/26/2025 Patient has chronic kidney disease 09/26/2025 Weekly blood pressure task 09/26/2025 Weekly blood pressure task 09/26/2025 Patient has chronic kidney disease 09/26/2025 Patient has chronic kidney disease 09/26/2025 Weekly blood pressure task 09/27/2025 Weekly blood pressure task 09/27/2025 Patient has chronic kidney disease 09/27/2025 Patient has chronic kidney disease 09/27/2025 Weekly blood pressure task 10/10/2025 Weekly blood pressure task 10/10/2025 Patient has chronic kidney disease 10/10/2025 Patient has chronic kidney disease 10/10/2025 Weekly blood pressure task 10/10/2025 Weekly blood pressure task 10/10/2025 Patient has chronic kidney disease 10/10/2025 Patient has chronic kidney disease 10/10/2025 Weekly blood pressure task 10/10/2025 Weekly blood pressure task 10/10/2025 Patient has chronic kidney disease 10/10/2025 Patient has chronic kidney disease 10/10/2025 Weekly blood pressure task 10/17/2025 Weekly blood pressure task 10/17/2025 Patient has chronic kidney disease 10/17/2025 Patient has chronic kidney disease 10/17/2025 Weekly blood pressure task 10/17/2025 Weekly blood pressure task 10/17/2025 Patient has chronic kidney disease 10/17/2025 Patient has chronic kidney disease 10/17/2025 Weekly blood pressure task 10/18/2025 Weekly blood pressure task 10/18/2025 Patient has chronic kidney disease 10/18/2025 Patient has chronic kidney disease 10/18/2025 Weekly blood pressure task 10/24/2025 Weekly blood pressure task 10/24/2025 Patient has chronic kidney disease 10/24/2025 Patient has chronic kidney disease 10/24/2025 Weekly blood pressure task 10/30/2025 Weekly blood pressure task 10/30/2025 Patient has chronic kidney disease 10/30/2025 Patient has chronic kidney disease 10/30/2025 Weekly blood pressure task 10/30/2025 Weekly blood pressure task 10/30/2025 Patient has chronic kidney disease 10/30/2025 Patient has chronic kidney disease 10/30/2025 Weekly blood pressure task 10/30/2025 Weekly blood pressure task 10/30/2025 Patient has chronic kidney disease 10/30/2025 Patient has chronic kidney disease 10/30/2025 Assessment Noted Time PHQ-9 Depression Total Score: 15 025 1:48 PM EST documented as of this encounter Care Teams Tool And Die Maker/Designer Relationship Specialty Start Date End Date Gerry Echavarria MD [address] [place] [address] PCP - General Internal Medicine 07/26/14 Jeannine Allen, BLANCA [address] [place] [address] Registered Nurse Family Medicine 08/28/25 Yoly Georges 08/29/25 Theron New Dolly DriverFood Photographer 01/08/24 [employer] 12/28/24 Heather Pérez Dolly DriverFood Photographer 05/23/25 Radha Sims Dolly DriverFood Photographer 07/28/25 documented as of this encounter
--- OUTSIDE RECORDS SUMMARY | 2025-11-01 06:27 | XMS_ITS | Encounter Summary ---
Author Organization [employer] Address [address] [place] [address] Care Team Providers Care Risk Management Director Name Role Phone Gerry Echavarria MD Primary Care Provide r Jeannine Allen RN Unavailable [phone] Yoly Georges Unavailable Reason for Visit * Reason Onset Date Comments CHART PREP 10/30/2025 Encounter Details Date Type Department Care Team ([facility] st Contact Info) Description 10/30/2025 Telephone [facility] [address] [place], [place] [phone] Gerry Echavarria MD [address] [place], [place] [phone] CHART PREP Social History Tobacco Use Types Packs/Day Years [...] encounter Miscellaneous Notes * Telephone Encounter - Radha Mialn MA - 10/30/2025 4:14 PM EST Chart Prep Labs: LIPID PANEL, HIV SCREENING AND HEP C SCREENING Images: not applicable Referrals: RHEUM PENDING 02/02/26 @ 12:30 PM AND UROLOGY 03/08/26 @ 11:30 AM. Vaccines due: Covid, Flu, and PCV20 Screenings: eye exam and foot exam Overdue care gaps: A1c, Glucose, and SBIRT documented in this encounter Plan of Treatment Upcoming Encounters Date Type Department Care Team (Late st Contact Info) Description 11/07/2025 11:00 AM EST Office Visit [facility] [address] [place] [address] Gerry Echavarria MD [address] [place] [address] 11/17/2025 9:30 AM EST Medication Management [facility] [address] [place] [address] Sumaya Jenkins, AroldoD [address] [place] [address] documented as of this encounter Goals Goal [...] Essential hypertension On track(2023 4:06 PM EDT) Angel Adam, Roney Note: [...] chronic kidney disease No Marley Hernandez LPN Weekly blood pressure [...] Care Plan Weekly blood pressure task No Rolandos-Nathalia Lockwoodsa, PharmD Patient has chronic kidney disease Care Plan Patient has chronic kidney disease No RolandosNathalia Michaelsa, PharmD Patient has chronic kidney disease Care [...] Care Plan Weekly blood pressure task No RolandosNathalia Michaelsa, PharmD Patient has chronic kidney disease Care Plan Patient has chronic kidney disease No Rolandos-Nathalia Lockwoodsa, PharmD Patient has chronic kidney disease Care Plan Patient has chronic kidney disease No Nathalia Jenkinssa, PharmD Weekly blood pressure task Care Plan Weekly blood pressure task No Иван Canas Weekly blood pressure task Care Plan Weekly blood pressure task No Иван Canas Patient has chronic kidney disease Care Plan Patient has chronic kidney disease No Иван Canas Patient has chronic kidney disease Care Plan Patient has chronic kidney disease No Pollo Canasnerry Weekly blood pressure task Care Plan Weekly blood pressure task No Jessica Aguayo MA Weekly blood pressure task Care Plan Weekly blood pressure task No Jessica Aguayo MA Patient has chronic kidney disease Care Plan Patient has chronic kidney disease No Jessica Aguayo MA Patient has chronic kidney disease Care Plan Patient has chronic kidney disease No Jessica Aguayo MA Weekly blood pressure [...] documented as of this encounter Care Teams Risk Management Director Relationship Specialty Start Date End Date Gerry Echavarria MD [address] [place] [address] PCP - General Internal Medicine 07/26/14 Jeannine Allen RN [address] [place] [address] Registered Nurse Family Medicine 08/28/25 Yoly Georges 08/29/25 Theron [employer] Publishing AgentVacuum Metalizing Supervisor 01/08/24 [employer] 12/28/24 Heather Pérez Publishing AgentVacuum Metalizing Supervisor 05/23/25 Radha Sims Publishing AgentVacuum Metalizing Supervisor 07/28/25 documented as of this encounter
--- OUTSIDE RECORDS SUMMARY | 2025-11-01 06:27 | XMS_ITS | Encounter Summary ---
Author Organization [employer] Address [address] [place] [address] Care Team Providers Care Tapper Balance Wheel Screw Hole Name Role Phone Gerry Echavarria MD Primary Care Provide r Jeannine Allen RN Unavailable [phone] Yoly Georges Unavailable Reason for Visit * Reason Onset Date Comments Nurse Triage 10/30/2025 Encounter Details Date Type Department Care Team (Late st Contact Info) Description 10/30/2025 Telephone [facility] [address] [place], [place] [phone] Gerry Echavarria MD [address] [place], [place] [phone] Nurse Triage Social History Tobacco Use Types [...] encounter Miscellaneous Notes * Telephone Encounter - Ruthie Valdez RN - 10/30/2025 12:26 PM EST TC returned to pt. Pt. Reports dry cough, fever, headache began Saturday 10/27. Pt. Reports last had fever last night which was 103, went down with tylenol. Pt. Reports she had dizziness which has now resolved. Pt. Reports she has had chills and bodyaches as well, and chest feels tight while coughing. Pt. Reports also taking Theraflu, nyquil, and dayquil without positive effect. No sob. Believes she can hear herself wheezing, does not have h/o asthma. Pt. Declines walk in availability today but agrees to appointment tomorrow 10/31/25 at 9:15am with PCP. Protocol Used: Cough (Adult) Disposition for Call (Nurse Override): See in Office or Video Visit Today or Tomorrow Override Reason: Caller refused suggested disposition Protocol-Based Disposition: Go to Office or Video Visit Now Positive Triage Questions: * Fever > 100 F (37.8 C) and has diabetes mellitus or a weak immune system (e.g., HIV positive, cancer chemotherapy, organ transplant, splenectomy, chronic steroids) * Wheezing is present * Fever present > 3 days (72 hours) * All higher-acuity triage questions were negative. Care Advice Discussed: * Reassurance and Education - Cough * Fever Medicines * Telephone Encounter - Иван Canas - 10/30/2025 9:46 AM EST Symptoms: Fever, Cough, Dizziness Outcome: Schedule an urgent appointment (within 1 hour) or talk to a nurse or provider soon Reason: Wheezing (high-pitched whistling sound) Tc from pt stating started 10/27 this symptom Please contact pt [phone] Norwegian speak documented in this encounter Plan of Treatment Upcoming Encounters Date Type Department Care Team (Late st Contact Info) Description 11/07/2025 11:00 AM EST Office Visit [facility] [address] [place] [phone] Gerry Echavarria MD [address] [place] [phone] 11/17/2025 9:30 AM EST Medication Management [facility] [address] [place] [phone] Sumaya Jenkins PharmD [address] [place] [phone] documented as of this encounter Goals Goal Patient Goal Type Associated Problems Recent Progress Patient-Stated? Author Blood Pressure < 140/90 Blood Pressure Essential hypertension 100/84(07/25 11:46 AM EDT) Angel Adam, Roney Note: BP at goal every other [...] Plan Weekly blood pressure task No Yoly Georgse Weekly blood pressure task Care Plan Weekly [...] Plan Weekly blood pressure task No Marley Hernandez, CUPOLA TAPPER HELPER Weekly blood pressure task Care Plan Weekly blood pressure task No Marley Hernandez, CUPOLA TAPPER HELPER Patient has chronic kidney disease Care Plan Patient has chronic kidney disease No HernandezHakanga, CUPOLA TAPPER HELPER Patient has chronic kidney disease Care Plan Patient has chronic kidney disease No Hakan Hernandezga, CUPOLA TAPPER HELPER Weekly blood pressure task Care Plan Weekly [...] Plan Weekly blood pressure task No Sumaya Jenkins, PharmD Patient has chronic [...] Care Plan Weekly blood pressure task No RolandosSumaya Michael PharmD Patient has chronic kidney disease Care Plan Patient has chronic kidney disease No RolandosSumaya Michael PharmD Patient has chronic kidney disease Care Plan Patient has chronic kidney disease No Rolandos-Sumaya Lockwood PharmD Weekly blood pressure task Care Plan Weekly blood pressure task No вИан Canas Weekly blood pressure task Care Plan Weekly blood pressure task No Иван Canas Patient has chronic kidney disease Care Plan Patient has chronic kidney disease No Иван Canas Patient has chronic kidney disease Care Plan Patient has chronic kidney disease No Иван Cnaas Weekly blood pressure task Care Plan Weekly [...] documented as of this encounter Care Teams Tapper Balance Wheel Screw Hole Relationship Specialty Start Date End Date Gerry Echavarria MD [address] [place], [place] [phone] PCP - General Internal Medicine 07/26/14 Jeannine Allen RN [address] [place], [place] [phone] Registered Nurse Family Medicine 08/28/25 Yoly Georges 08/29/25 Theron New Leadership InternShear Operator 01/08/24 [employer] 12/28/24 Heather Pérez Leadership InternShear Operator 05/23/25 Radha Sims Leadership InternShear Operator 07/28/25 documented as of this encounter
--- OUTSIDE RECORDS SUMMARY | 2025-11-01 06:27 | XMS_ITS | Encounter Summary ---
Author Organization [employer] Address [address] [facility] [address] [place] [address] Care Team Providers Care Lathe Hand Name Role Phone Gerry Echavarria MD Primary Care Provide r Jeannine Allen RN Unavailable [phone] Yoly Georges Unavailable Reason for Visit * Reason Comments Care Management C3CM- FOLLOW UP CALL Encounter Details Date Type Department Care Team ([facility] st Contact Info) Description 09/26/2025 Patient Outreach [facility] [address] [place], [place] [phone] Gerry Echavarria MD [address] [place], [place] [phone] Care Management (C3CM- FOLLOW UP CALL/) Social History Tobacco Use Types Packs/Day Years [...] as of this encounter Miscellaneous Notes * Care Plan - Jeannine Allen RN - 09/26/2025 1:58 PM EST Active BH: Anxiety Anxiety Management (Progressing) Start: 09/18/25 Expected End: 12/19/25 Patient agrees to attempt to effectively manage anxiety through the use of appropriate coping mechanisms, as evidenced by a decrease in anxiety symptoms and ability to engage in daily activities. Symptom Management (Progressing) Start: 09/18/25 Expected End: 12/19/25 Behavioral Health Support Behavioral Health (Progressing) Start: 09/18/25 Expected End: 12/19/25 Patient states will consistently attend all scheduled therapy and prescriber appointments and will promptly notify their home care administrator, psychiatrist, or therapist of any medication side effects or worsening symptoms in the next 3 months. Care Management Care Management (Progressing) Start: 09/18/25 Expected End: 12/19/25 Within the next 3 months, patient will engage with home care administrator through scheduled calls or visits to review health goals, discuss progress, and address any barriers to care plan. Goal Note CM was able to connect with patient for follow up, reviewed care plan and documented on goal progression. Coordination of Care Effectively coordinate care (Progressing) Start: 09/18/25 Expected End: 12/19/25 In the next 3 months, patient will notify the care team of all upcoming appointments and communicate any scheduling difficulties to receive assistance with coordination and reminders. Goal Note CM advised patient that PT-1 was set up for [facility]. Patient provided update that appointment was rescheduled for 10/17/25 at 12pm instead of 10/02/25. Patient advised will have [facility] update PT-1. Hypertension B/P at/or < Goal (Progressing) Start: 09/18/25 Expected End: 12/19/25 Has Evidence-Based HTN Treatment Plan (Progressing) Start: 09/18/25 Expected End: 12/19/25 Patient will actively participate in managing their blood pressure by taking prescribed medicationsas directed, monitoring blood pressure at home, attending scheduled follow-up visits, and making agreed-upon lifestyle changes (such as reducing sodium intake and increasing physical activity) in order to maintain blood pressure at or below the target goal of 140/80 mmHg. Manage Hypertension (Progressing) Start: 09/18/25 Expected End: 12/19/25 Goal Note CM reviewed Blood Pressure goal and current medication orders. CM assisting with obtaining refills of lisinopril. Regularly Monitors Blood Pressure (Progressing) Start: 09/18/25 Expected End: 12/19/25 Medication Concerns Improve Medication Access (Progressing) Start: 09/18/25 Expected End: 12/19/25 Patient will adhere to all prescribed medications and will notify pharmacy, primary care provider or prescriber when medication refills are needed. Goal Note CM requesting MTM referral for patient to help with medication management as currently is without lisinopril and not due for refill until 10/05/25 per last fill date at [facility]. Improve Medication Adherence (Progressing) Start: 09/18/25 Expected End: 12/19/25 Patient will trial use of medication compliance bubble packing with delivery and will notify primary care provider if this has improved adherence to all medications and reduce feelings of being overwhelmed in the next 3 months. Improve Medication Management (Progressing) Start: 09/18/25 Expected End: 12/19/25 Pain Management Manage Pain (Progressing) Start: 09/18/25 Expected End: 12/19/25 Patient will verbalize effective use of at least two non-pharmacologic pain relief strategies (e.g., heat therapy, stretching, rest) along with use of prescribed medication and maintain pain below 5/10 during daily activities within the next 3 months. Plan of Care Patient Centered Plan of Care (Progressing) Start: 09/18/25 Expected End: 12/19/25 Patient will actively participate in care planning by collaborating with the care team to set, review, and work toward personal health goals, demonstrating engagement in their overall treatment and wellness plan. Goal Note CM reviewed initial care plan with patient. Will continue to assess progress of goals and update asneeded. SDOH Needs Support SDOH Needs (Progressing) Start: 09/18/25 Expected End: 12/19/25 Patient will communicate any social, financial, or environmental challenges that affect their health (such as housing, transportation, food access, or medication costs) with care management team so that they can help connect with available resources and supports. Self Management Patient takes an active role in self-managing condition (Progressing) Start: 09/18/25 Expected End: 12/19/25 Patient will call their primary care provider's office for any new or urgent health concerns to ensure timely follow-up and appropriate adjustments to the treatment plan. Goal Note CM assessed symptoms of illness, advised to seek walk in center as needed for evaluation if symptoms do not improve. Patient understands and has a plan for managing symptoms and knows when to contact physician (Progressing) Start: 09/18/25 Expected End: 12/19/25 Patient will utilize the walk-in clinic or nurse telephone triage services after hours as needed toaddress urgent health issues and prevent delays in care. documented in this encounter Plan of Treatment Upcoming Encounters Date Type Department Care Team (Late st Contact Info) Description 11/07/2025 11:00 AM EST Office Visit [facility] [address] [place] [address] Gerry Echavarria MD [address] [place] [address] 11/17/2025 9:30 AM EST Medication Management [facility] [address] [place] [address] Sumaya Jenkins, Roney [address] [place] [address] documented as of this encounter Goals Goal [...] 09/26/2025 Patient has chronic kidney disease 09/26/2025 Assessment Noted Time PHQ-9 Depression Total Score: 15 025 1:48 PM EST documented as of this encounter Care Teams Lathe Hand Relationship Specialty Start Date End Date Gerry Echavarria MD [address] [place] [address] PCP - General Internal Medicine 07/26/14 Jeannine Allen, BLANCA [address] [place] [address] Registered Nurse Family Medicine 08/28/25 Yoly Georges 08/29/25 Theron New Civil Rights InvestigatorLog Loader Helper 01/08/24 [facility] [employer] 12/28/24 Heather Pérez Civil Rights InvestigatorLog Loader Helper 05/23/25 Radha Sims Civil Rights InvestigatorLog Loader Helper 07/28/25 documented as of this encounter
--- OUTSIDE RECORDS SUMMARY | 2025-11-01 06:27 | XMS_ITS | Encounter Summary ---
Author Organization [employer] Address [address] [facility] [address] [place] [address] Care Team Providers Care Lease Attendant Name Role Phone Gerry Echavarria MD Primary Care Provide r Jeannine Allen RN Unavailable [phone] Yoly Georges Unavailable Reason for Visit * Reason Comments Med Refill Encounter Details Date Type Department Care Team (Late st Contact Info) Description 05/26/2025 Refill [facility]ALK[facility] CENTER [address] [place] [address] Name, MD Wai [address] [place], [place] [phone] Social History Tobacco Use Types Packs/Day Years Used Date Smoking Tobacco: Former Cigarettes 1.5 20 1 989 - 2008 Passive Smoke Exposure: Past Smokeless Tobacco: Never Alcohol Use Standard Drinks/Week Comments Not Currently 0 (1 standard drink = 0.6 oz pur e alcohol) Depression Answer Date Recorded Patient Health Questionnaire-9 Score 5 04/18/2025 Patient Health Questionnaire-9 Score 5 04/18/2025 Last PHQ-9: Questionnaire Data Not on file 0 04/18/2025 Housing Stability Answer Date Recorded What is [...] Answer Date Recorded Patient Health Questionnaire-2 Score 0 04/18/2025 Internet Access Answer Date Recorded Internet Access [...] Description 11/07/2025 11:00 AM EST Office Visit [facility] MEDICINE [address] [place] [address] Gerry Echavarria MD [address] [place] [address] 11/17/2025 9:30 AM EST Medication Management [facility] [address] [place] [address] Sumaya Jenkins PharmD [address] [place] [address] documented as of this encounter Goals Goal [...] Assessment Noted Time PHQ-9 Depression Total Score: 5 04/18/20 25 11:46 AM EDT documented as of this encounter Care Teams Lease Attendant Relationship Specialty Start Date End Date Gerry Echavarria MD 230 [place] [address] PCP - General Internal Medicine 07/26/14 Jeannine Allen RN [address] [place] [address] Registered Nurse Family Medicine 08/28/25 Yoly Georges 08/29/25 Theron New Malted Milk MixerHead Of Mobile 01/08/24 [employer] [facility] [employer] 12/28/24 Heather Pérez Malted Milk MixerHead Of Mobile 05/23/25 Radha Sims Malted Milk MixerHead Of Mobile 07/28/25 documented as of this encounter
--- OUTSIDE RECORDS SUMMARY | 2025-11-01 06:27 | XMS_ITS | Encounter Summary ---
Author Organization [employer] Address [address] [facility] [address] [place] [address] Care Team Providers Care Assistant Real Estate Manager Name Role Phone Gerry Echavarria MD Primary Care Provide r Jeannine Allen RN Unavailable [phone] Yoly Geogres Unavailable Reason for Visit * Reason Onset Date Comments Med Refill 11/23/2024 Encounter Details Date Type Department Care Team (Late st Contact Info) Description 11/23/2024 Telephone [facility] [address] [place] [address] Gerry Echavarria MD [address] [place], [place] [phone] Med Refill Social History Tobacco Use Types [...] : FreeStyle lancets To be sent to: [facility]/pharmacy #[id number] documented in this encounter Plan of Treatment Upcoming Encounters Date Type Department Care Team (Late st Contact Info) Description 11/07/2025 11:00 AM EST Office Visit [facility] [address] [place] [address] Gerry Echavarria MD [address] [place], [place] [phone] 11/17/2025 9:30 AM EST Medication Management [facility] [address] [place], [place] [phone] Sumaya Jenkins, AroldoD [address] [place], [place] documented as of this encounter Goals Goal [...] documented as of this encounter Care Teams Assistant Real Estate Manager Relationship Specialty Start Date End Date Gerry Echavarria MD [address] [place] [address] PCP - General Internal Medicine 07/26/14 Jeannine Allen RN [address] [place] [address] Registered Nurse Family Medicine 08/28/25 Yoly Georges 08/29/25 Theron New Wheelchair Van DriverChange Management Consultant 01/08/24 [facility] 09/28/24 02/12/25 [employer] 12/28/24 Heather Pérez Wheelchair Van DriverChange Management Consultant 05/23/25 Radha Sims Wheelchair Van DriverChange Management Consultant 07/28/25 documented as of this encounter
--- OUTSIDE RECORDS SUMMARY | 2025-11-01 06:27 | XMS_ITS | Encounter Summary ---
Author Organization [employer] Address [address] [place] [address] Care Team Providers Care Bellhop Name Role Phone Gerry Echavarria MD Primary Care Provide r Jeannine Allen RN Unavailable [phone] Yoly Georges Unavailable Reason for Visit * Reason Comments Med Refill Encounter Details Date Type Department Care Team (Late st Contact Info) Description 08/08/2023 Refill [facility] MED[facility]INE [address] [place], [place] [phone] Mala Williamson, ANP [address] [place], [place] [phone] Vertigo; Diarrhea, unspecified type; Irritable bowel syndrome, [...] 11:00 AM EST Office Visit [facility] MEDICINE [address] [place] [address] Gerry Echavarria MD [address] [place] [address] 11/17/2025 9:30 AM EST Medication Management [facility] MED[facility]INE [address] [place] [address] Sumaya Jenkins PharmD [address] [place] [address] documented as of this encounter Goals Goal Patient Goal Type Associated Problems Recent Progress Patient-Stated? Author Blood Pressure < 140/90 Blood Pressure Essential hypertension 100/84(2024 11:46 AM EDT) No Angel Emmanuel, Roney Note: BP at goal every other day; encouraged lifestyle changes to promote BP control Follow the DASH diet Diet Essential hypertension On track( 024 4:06 PM EDT) Angel Adam, Roney Note: Look for low-sodium products Increase [...] documented as of this encounter Care Teams Bellhop Relationship Specialty Start Date End Date Gerry Echavarria MD 230 [place], [place] [phone] PCP - General Internal Medicine 07/26/14 Jeannine Allen RN [address] [place] [address] Registered Nurse Family Medicine 08/28/25 Yoly Georges 08/29/25 Theron New Disability AideSatellite Communications Engineer 01/08/24 [facility] 09/28/24 02/12/25 [facility] [employer] 12/28/24 Heather Pérez Disability AideSatellite Communications Engineer 05/23/25 Radha Sims Disability AideSatellite Communications Engineer 07/28/25 documented as of this encounter
--- OUTSIDE RECORDS SUMMARY | 2025-11-01 06:28 | XMS_ITS | Encounter Summary ---
Author Organization [employer] Address [address] [facility] [address] [place] [address] Care Team Providers Care Qi Specialist Name Role Phone Gerry Echavarria MD Primary Care Provide r Jeannine Allen RN Unavailable [phone] Yoly Georges Unavailable Reason for Visit * Reason Comments Med Refill Encounter Details Date Type Department Care Team (Late st Contact Info) Description 09/20/2023 Refill [facility] [place] 230 [place], [place] [phone] [facility] 230 [place], [place] [phone] Folliculitis Social History Tobacco Use Types Packs/Day [...] Description 11/07/2025 11:00 AM EST Office Visit [facility] MEDICINE [address] [place] [address] Gerry Echavarria MD [address] [place] [address] 11/17/2025 9:30 AM EST Medication Management [facility] MED[facility]INE [address] [place] [address] Sumaya Jenkins PharmD 230 [place] [address] documented as of this encounter Goals Goal [...] 024 4:06 PM EDT) No Angel Emmanuel, AroldoD Note: inactive, advised some amount of cardio can help with heart health documented as of this encounter Visit Diagnoses Diagnosis Folliculitis Other specified disease of hair and hair follicles documented in this encounter Additional Health Concerns Assessment Noted Time PHQ-9 Depression Total Score: 11 023 2:03 PM EDT documented as of this encounter Care Teams Qi Specialist Relationship Specialty Start Date End Date Gerry Echavarria MD 230 [place], [place] [phone] PCP - General Internal Medicine 07/26/14 Jeannine Allen RN 230 [place] [address] Registered Nurse Family Medicine 08/28/25 Yoly Georges 08/29/25 Theron New Junior Linux AdministratorPallet Rectifier 01/08/24 [facility] Care 09/28/24 02/12/25 [employer] 12/28/24 Heather Pérez Junior Linux AdministratorPallet Rectifier 05/23/25 Radha Sims Junior Linux AdministratorPallet Rectifier 07/28/25 documented as of this encounter
--- OUTSIDE RECORDS SUMMARY | 2025-11-01 06:28 | XMS_ITS | Encounter Summary ---
Author Organization [facility] [employer] Address [address] [facility] [address] [place] [address] Care Team Providers Care Drop Hammer Set Up Operator Name Role Phone Gerry Echavarria MD Primary Care Provide r Jeannine Allen RN Unavailable [phone] Yoly Georges Unavailable Reason for Visit * Reason Comments Med Refill Encounter Details Date Type Department Care Team (Late st Contact Info) Description 09/10/[address] [facility] MEDICINE 230 [place], [place] [phone] Gerry Echavarria MD 230 [place], [place] [phone] Social History Tobacco Use Types Packs/Day Years [...] 11:00 AM EST Office Visit [facility] MEDICINE [address] [place] [address] Gerry Echavarria MD [address] [place] [address] 11/17/2025 9:30 AM EST Medication Management [facility] MEDICINE [address] [place] [address] Sumaya Jenkins PharmD 230 [place] [address] documented as of this encounter Goals Goal [...] track( 024 4:06 PM EDT) Angel Adam, PharmD Note: inactive, advised some amount of cardio can help with heart health documented as of this encounter Visit Diagnoses Not on filedocumented in this encounter Additional Health Concerns Assessment Noted Time PHQ-9 Depression Total Score: 11 023 2:03 PM EDT documented as of this encounter Care Teams Drop Hammer Set Up Operator Relationship Specialty Start Date End Date Gerry Echavarria MD 230 [place], [place] [phone] PCP - General Internal Medicine 07/26/14 Jeannine Allen, BLANCA 230 [place] [address] Registered Nurse Family Medicine 08/28/25 Yoly Georges 08/29/25 Theron New Director Of Rehabilitative ServicesHeavy Truck Mechanic 01/08/24 [facility] 09/28/24 02/12/25 [employer] [facility] [employer] 12/28/24 Heather Pérez Director Of Rehabilitative ServicesHeavy Truck Mechanic 05/23/25 Radha Sims Director Of Rehabilitative ServicesHeavy Truck Mechanic 07/28/25 documented as of this encounter
--- OUTSIDE RECORDS SUMMARY | 2025-11-01 06:28 | XMS_ITS | Encounter Summary ---
Author Organization [employer] Address [address] [facility] [address] [place] [address] Care Team Providers Care Mice Raiser Name Role Phone Gerry Echavarria MD Primary Care Provide r Jeannine Allen RN Unavailable [phone] Yoly Georges Unavailable Reason for Visit * Reason Comments Med Refill Encounter Details Date Type Department Care Team (Late st Contact Info) Description 08/18/[address] [facility] MED[facility] 230 [place], [place] [phone] Krystina Haji MD 230 [place], [place] [phone] Mixed anxiety and depressive disorder; Chronic migraine [...] Description 11/07/2025 11:00 AM EST Office Visit [facility] MED[facility] [address] [place] [address] Gerry Echavarria MD [address] [place] [address] 11/17/2025 9:30 AM EST Medication Management [facility] [address] [place] [address] Sumaya Jenkins PharmD [address] [place] [address] documented as of this encounter Goals Goal Patient Goal Type Associated Problems Recent Progress Patient-Stated? Author Blood Pressure < 140/90 Blood Pressure Essential hypertension 100/84(2024 11:46 AM EDT) No Angel Emmanuel, Roney Note: BP at goal every other day; encouraged lifestyle changes to promote BP control Follow the DASH diet Diet Essential hypertension On track( 024 4:06 PM EDT) Angel AdamRoney Note: Look for low-sodium products Increase physical [...] documented as of this encounter Care Teams Mice Raiser Relationship Specialty Start Date End Date Gerry Echavarria MD 230 [place] [address] PCP - General Internal Medicine 07/26/14 Jeannine Allen RN 230 [place] [address] Registered Nurse Family Medicine 08/28/25 Yoly Georges 08/29/25 Theron New Group Billing CoordinatorVacuum Drier Operator 01/08/24 [facility] 09/28/24 02/12/25 [facility] 12/28/24 Heather Pérez Group Billing CoordinatorVacuum Drier Operator 05/23/25 Radha Sims Group Billing CoordinatorVacuum Drier Operator 07/28/25 documented as of this encounter
--- OUTSIDE RECORDS SUMMARY | 2025-11-01 06:28 | XMS_ITS | Encounter Summary ---
Author Organization [employer] Address [address] [address] 7[address] [place] [address] Care Team Providers Care Quality Assurance Name Role Phone Gerry Echavarria MD Primary Care Provide r Jeannine Allen RN Unavailable [phone] Yoly Georges Unavailable Reason for Visit * Reason Comments Med Refill Encounter Details Date Type Department Care Team ([facility] st Contact Info) Description 09/20/2023 Refill [facility] MED & PEDS [address] [place], [place] [phone] Amalia Ta MD [address] [place], [place] [phone] Social History Tobacco Use Types Packs/Day Years [...] Description 11/07/2025 11:00 AM EST Office Visit [facility] MEDICINE [address] [place] [address] Gerry Echavarria MD 230 [place] [address] 11/17/2025 9:30 AM EST Medication Management [facility] MEDICINE [address] [place] [address] Sumaya Jenkins PharmD 230 [place] [address] documented as of this encounter Goals Goal [...] documented as of this encounter Care Teams Quality Assurance Relationship Specialty Start Date End Date Gerry Echavarria MD 230 [place], [place] [phone] PCP - General Internal Medicine 07/26/14 Jeannine Allen, BLANCA 230 [place] [address] Registered Nurse Family Medicine 08/28/25 Yoly Georges 08/29/25 Theron New Commercial Property AdministratorProfessional Volleyball Player 01/08/24 [facility] 09/28/24 02/12/25 [facility] 12/28/24 Heather Pérez Commercial Property AdministratorProfessional Volleyball Player 05/23/25 Radha Sims Commercial Property AdministratorProfessional Volleyball Player 07/28/25 documented as of this encounter
--- OUTSIDE RECORDS SUMMARY | 2025-11-01 06:28 | XMS_ITS | Encounter Summary ---
Author Organization [employer] Address [address] [facility] [address] [place] [address] Care Team Providers Care Garment Folder Name Role Phone Gerry Echavarria MD Primary Care Provide r Jeannine Allen RN Unavailable [phone] Yoly Georges Unavailable Reason for Visit * Reason Comments Med Refill Encounter Details Date Type Department Care Team (Late st Contact Info) Description 08/25/2023 Refill [facility] MEDICINE 230 [place], [place] [phone] Wendie Sandoval CNM 230 [place], [place] [phone] Social History Tobacco Use Types Packs/Day Years [...] 11:00 AM EST Office Visit [facility] MEDICINE [address] [place] [address] Gerry Echavarria MD [address] [place] [address] 11/17/2025 9:30 AM EST Medication Management [facility] MEDICINE [address] [place] [address] Sumaya Jenkins PharmD [address] [place] [address] documented as of this encounter Goals Goal [...] documented as of this encounter Care Teams Garment Folder Relationship Specialty Start Date End Date Gerry Echavarria MD [address] [place], [place] [phone] PCP - General Internal Medicine 07/26/14 Jeannine Allen, BLANCA [address] [place] [address] Registered Nurse Family Medicine 08/28/25 Yoly Georges 08/29/25 Theron New Compressor Stations SuperintendentWater Purification Chemist 01/08/24 [facility] 09/28/24 02/12/25 [facility] [employer] 12/28/24 Heather Pérez Compressor Stations SuperintendentWater Purification Chemist 05/23/25 Radha Sims Compressor Stations SuperintendentWater Purification Chemist 07/28/25 documented as of this encounter
--- OUTSIDE RECORDS SUMMARY | 2025-11-01 06:28 | XMS_ITS | Encounter Summary ---
Author Organization [employer] Address [address] [place] [address] Care Team Providers Care Director Life Insurance Name Role Phone Gerry Echavarria MD Primary Care Provide r Jeannine Allen RN Unavailable [phone] Yoly Georges Unavailable Reason for Visit * Reason Onset Date Comments triage 12/26/2022 Encounter Details Date Type Department Care Team ([facility] st Contact Info) Description 12/26/2022 Telephone [facility] [address] [place], [place] [phone] Gerry Echavarria MD [address] [place], [place] [phone] triage Social History Tobacco Use Types Packs/Day [...] accepted this outcome Please contact pt at [phone] documented in this encounter Plan of Treatment Upcoming Encounters Date Type Department Care Team (Late st Contact Info) Description 11/07/2025 11:00 AM EST Office Visit [facility] [address] [place] [phone] Gerry Echavarria MD [address] [place] [address] 11/17/2025 9:30 AM EST Medication Management [facility] [address] [place] [phone] Sumaya Jenkins PharmD [address] [place] [address] documented as of this encounter Goals Goal [...] on filedocumented in this encounter Care Teams Director Life Insurance Relationship Specialty Start Date End Date Gerry Echavarria MD [address] [place], [place] [phone] PCP - General Internal Medicine 07/26/14 Jeannine Allen RN [address] [place], [place] [phone] Registered Nurse Family Medicine 08/28/25 Yoly Georges 08/29/25 Theron New Correctional SupervisorLard Renderer 01/08/24 [facility] 09/28/24 02/12/25 [employer] 12/28/24 Heather Pérez Correctional SupervisorLard Renderer 05/23/25 Radha Sims Correctional SupervisorLard Renderer 07/28/25 documented as of this encounter
--- OUTSIDE RECORDS SUMMARY | 2025-11-01 06:28 | XMS_ITS | Encounter Summary ---
Author Organization [employer] Address [address] [place] [address] Care Team Providers Care Database Consultant Name Role Phone Gerry Echavarria MD Primary Care Provide r Jeannine Allen RN Unavailable [phone] Yoly Georges Unavailable Reason for Visit * Reason Onset Date Comments Med Refill 04/10/2025 Encounter Details Date Type Department Care Team (Late st Contact Info) Description 04/10/2025 Refill [facility] [address] [place], [place] [phone] Gerry Echavarria MD [address] [place], [place] [phone] Essential hypertension Social History Tobacco Use Types [...] Description 11/07/2025 11:00 AM EST Office Visit [facility] [address] [place] [phone] Gerry Echavarria MD [address] [place] [address] 11/17/2025 9:30 AM EST Medication Management [facility] [address] [place] [address] Sumaya Jenkins PharmD [address] [place] [address] documented as of this encounter Goals Goal Patient Goal Type Associated Problems Recent Progress Patient-Stated? Author Blood Pressure < 140/90 Blood Pressure Essential hypertension 100/84(2024 11:46 AM EDT) No Angel Emmanuel, AroldoD Note: BP at goal every other day; [...] documented as of this encounter Care Teams Database Consultant Relationship Specialty Start Date End Date Gerry Echavarria MD [address] [place] [address] PCP - General Internal Medicine 07/26/14 Jeannine Allen RN [address] [place] [address] Registered Nurse Family Medicine 08/28/25 Yoly Georges 08/29/25 Theron [employer] Club AssemblerSummer Analyst 01/08/24 [employer] 12/28/24 Heather Pérez Golf Club AssemblerSummer Analyst 05/23/25 Radha Sims Golf Club AssemblerSummer Analyst 07/28/25 documented as of this encounter
--- OUTSIDE RECORDS SUMMARY | 2025-11-01 06:28 | XMS_ITS | Encounter Summary ---
Author Organization [email or web address] Address [address] [place] [address] Care Team Providers Care Public Address Servicer Name Role Phone Gerry Echavarria MD Primary Care Provide r Jeannine Allen RN Unavailable [phone] Yoly Georges Unavailable Reason for Visit * Reason Comments Med Refill Encounter Details Date Type Department Care Team (Late st Contact Info) Description 09/20/2023 Refill [facility] [address] [place], [place] [phone] Tracey Leyva MD [address] [place], [place] [phone] Social History Tobacco Use Types Packs/Day Years [...] Description 11/07/2025 11:00 AM EST Office Visit [facility] [address] [place] [phone] Gerry Echavarria MD [address] [place] [address] 11/17/2025 9:30 AM EST Medication Management [facility] [address] [place] [address] Sumaya Jenkins PharmD [address] [place] [address] documented as of this encounter Goals Goal [...] as of this encounter Care Teams Public Address Servicer Relationship Specialty Start Date End Date Gerry Echavarria MD [address] [place], [place] [phone] PCP - General Internal Medicine 07/26/14 Jeannine Allen, BLANCA [address] [place] [address] Registered Nurse Family Medicine 08/28/25 Yoly Georges 08/29/25 Theron [employer] Watch Hairspring AssemblerSalon Coordinator 01/08/24 [facility] 09/28/24 02/12/25 [employer] 12/28/24 Heather Pérez Watch Hairspring AssemblerSalon Coordinator 05/23/25 Radha Sims Watch Hairspring AssemblerSalon Coordinator 07/28/25 documented as of this encounter
--- OUTSIDE RECORDS SUMMARY | 2025-11-01 06:28 | XMS_ITS | Encounter Summary ---
Author Organization [employer] Address [address] [place] [address] Care Team Providers Care Book Shelver Name Role Phone Gerry Echavarria MD Primary Care Provide r Jeannine Allen RN Unavailable [phone] Yoly Georges Unavailable Reason for Visit * Reason Comments Med Refill Encounter Details Date Type Department Care Team (Late st Contact Info) Description 09/20/2023 Refill [facility] [address] [place], [place] [phone] Mala Williamson, ANP [address] [place], [place] [phone] Diarrhea, unspecified type; Irritable bowel syndrome, unspecified [...] Description 11/07/2025 11:00 AM EST Office Visit [facility] [address] [place] [address] Gerry Echavarria MD [address] [place] [phone] 11/17/2025 9:30 AM EST Medication Management [facility] [address] [place] [address] Sumaya Jenkins PharmD [address] [place] [phone] documented as of this encounter Goals Goal [...] documented as of this encounter Care Teams Book Shelver Relationship Specialty Start Date End Date Gerry Echavarria MD [address] [place], [place] [phone] PCP - General Internal Medicine 07/26/14 Jeannine Allen RN [address] [place] [address] Registered Nurse Family Medicine 08/28/25 Yoly Georges 08/29/25 Theron New Joint SupervisorTinsmith Helper 01/08/24 [facility] 09/28/24 02/12/25 [facility] 12/28/24 Heather Pérez Joint SupervisorTinsmith Helper 05/23/25 Radha Sims Joint SupervisorTinsmith Helper 07/28/25 documented as of this encounter
--- OUTSIDE RECORDS SUMMARY | 2025-11-01 06:28 | XMS_ITS | Encounter Summary ---
Author Organization [employer] Address [address] [place] [address] Care Team Providers Care Market Research Interviewer Name Role Phone Gerry Echavarria MD Primary Care Provide r Jeannine Allen RN Unavailable [phone] Yoly Georges Unavailable Reason for Visit * Reason Comments Med Refill Encounter Details Date Type Department Care Team (Late st Contact Info) Description 08/08/2023 Refill [facility] [address] [place] [address] Name, MD Wai [address] [place], [place] [phone] Mixed anxiety and depressive disorder Social History [...] 11:00 AM EST Office Visit [facility] [address] [place] [phone] Gerry Echavarria MD [address] [place] [address] 11/17/2025 9:30 AM EST Medication Management [facility] [address] [place] [phone] Sumaya Jenkins PharmD [address] [place] [address] documented as of this encounter Goals Goal [...] documented as of this encounter Care Teams Market Research Interviewer Relationship Specialty Start Date End Date Gerry Echavarria MD [address] [place], [place] [phone] PCP - General Internal Medicine 07/26/14 Jeannine Allen RN [address] [place] [address] Registered Nurse Family Medicine 08/28/25 Yoly Georges 08/29/25 Theron New Investment Accounting ClerkForest Technician 01/08/24 [facility] 09/28/24 02/12/25 [employer] 12/28/24 Heather Pérez Investment Accounting ClerkForest Technician 05/23/25 Radha Sims Investment Accounting ClerkForest Technician 07/28/25 documented as of this encounter
--- OUTSIDE RECORDS SUMMARY | 2025-11-01 06:28 | XMS_ITS | Clinical Summary ---
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 COMPARISON: Mammography: Comparison is made with available priors TECHNIQUE: Digital breast mammography with tomosynthesis is performed in both the craniocaudal and mediolateral oblique views along with computer-aided detection (CAD). FINDINGS: There are scattered areas of fibroglandular [...] for their next mammogram. Electronically signed by: Dea Rashid DO 06/27/2025 02:43 PM EDT RP Dictated By: Dea Rashid DO Signed By: <Electronically signed by Dea Rashid DO in OV> 06/27/25 1443 DD/ 0940 TD/TT: 06/23/25 0955 Provider Network Mgr: Procedure Note Donotuseinterpreter, Image - 06/27/2025 [facility] [address] [place], [place] [address] Mammography Report Signed Patient: Julia SmithMR#: [id number] : 1975Acct:[id number] Age/Sex: 50 / FADM Date: 06/23/25 Loc: HOTomásMAMMO Attending Dr: Aubrie Trinidad MD Ordering Physician: Gerry Lopez MDResu lts: 1Negative Date of Service: 06/23/25Follow Up: 1 Year From Orig inal Mammogram Procedure(s): MM tomosynthesis screening BI Accession Number(s): [id number] cc: Gerry Lopez MD EXAMINATION: MM SCREENING DIGITAL BREAST TOMOSYNTHESIS, BILATERAL CLINICAL INFORMATION: Screening. Asymptomatic. COMPARISON: Mammography: Comparison is made with available priors TECHNIQUE: Digital breast mammography with tomosynthesis is performed in both the craniocaudal and mediolateral oblique views along with computer-aided detection (CAD). FINDINGS: There are scattered areas of fibroglandular [...] for their next mammogram. Electronically signed by: Dea Rashid DO 06/27/2025 02:43 PM EDT RP Dictated By: Dea Rashid DO Signed By: <Electronically signed by Dea Rashid DO in OV> 06/27/25 1443 DD/ 0940 TD/TT: 06/23/25 0955 Provider Network Mgr: Gerry Whitehead MD IMG BI PROCEDURES Fin al Result * (ABNORMAL) POCT HGB A1C (04/18/2025 11:37 AM EDT) Hemoglobin A1C 6.9(A) 4.0 - 6.0 % QC Media Lot # [id number] Lot# Expiration Date Blood 04/18/2025 11:3 7 AM EDT Gerry Whitehead MD POINT OF CARE TEST EN TER/EDIT ORDERABLES Final Result * Albumin, Random Urine W/Creatinine (01/19/2025 10:23 AM EDT) Creatinine, Urine 258.90 mg/dL [facility] Microalbumin Urine 64.0 mg/L [facility] Microalbum Creatinine Ratio Ur 24.7 <30 ug/mg cr [facility] Comment:Albumin/Creatinine R atio Reference Ranges: Normal: < 30 ug/mg creatinine Microalbuminuria: 30 - 300 ug/mg creatinineClinical Albuminuria: > 300 ug/mg creatinine Urine (Urine, Random) 01/19/2025 10:23 AM EDT 01/19/2025 11:59 AM EDT Gerry Whitehead MD LAB URINE ORDERABLES Final Result [facility] [address] [place] [phone] * (ABNORMAL) Lipid Panel, Standard (08/18/2024 11:31 AM EDT) Triglycerides 107 <150 mg/dL [facility] Comment:Desirable Triglyceri de: less than 150 mg/dLBorderline High Triglyceride 150-199 mg/dLHigh Triglyceride: 200-499 mg/dLVery High Triglyceride: greater than or equal to 5OO mg/dL Cholesterol 208(H) <200 mg/dL [facility] Comment:Desirable Cholestero l: less than 200 mg/dLBorderline High Cholesterol: 200-239 mg/dLHigh Cholesterol: greater than 239 mg/dL LDL Cholesterol Calculated 115(H) <100 mg/dL [facility] Comment:Desirable LDL: less than 100 mg/dLNear Optimal/Above Optimal LDL: 110- 129 mg/dLBorderline High LDL: 130-159 mg/dLHigh LDL: 160-189 mg/dLVery High LDL: greater than or equal to 190 mg/dL HDL Cholesterol 72 >40 mg/dL [facility] Comment:Desirable HDL: great er than 40 mg/dL Note: This HDL assay may give artificially low results in patients with liver disease. Blood Venous blood specimen / Unknown 08/18/2024 11:31 AM EDT 08/18/2024 1:14 PM EDT Gerry Whitehead MD LAB BLOOD ORDERABLES Final Result [facility] [address] [place] [phone] * Hm Colonoscopy (02/08/2024) Colonoscopy Normal Normal Historical Provider HEALTH MAINTENANCE Final Result * (ABNORMAL) Cologuard?? colon cancer screening (12/18/2023 11:00 AM EST) Cologuard Result Positive( A) Negative 12/27/2023 11:00 AM EST [facility] (CLIA #:[id number]) Comment: POSITIVE TEST RESULT. A positive Cologuard result should be followed with a colonoscopy or visual examination of the colon. The normal value (reference range) for this assay is negative. TEST DESCRIPTION: Composite algorithmic analysis of stool DNA-biomarkers with hemoglobin immunoassay. Quantitative values of individual biomarkers are not [...] Tomlinson et al, N Engl J Med 2014;370(14):7717-2212.) Cologuard may produce a false negative or false positive result (no colorectal cancer or precancerous polyp present at colonoscopy follow up). A negative Cologuard test result does not guarantee the absence of CRC or advanced adenoma (pre-cancer). The current Cologuard screening interval is every 3 years. ([place] Cancer Society and U.S. Multi-Society Task Force). Cologuard performance data in a 10,000 patient pivotal study using colonoscopy as the reference method can be accessed at the following location: www.Spacenet.Incujector/results. Additional description of the Cologuard test process, warnings and precautions can be found at www.Cloakrd.com. Stool specimen (specimen) 12/18/2023 11:00 AM EST 12/19/2023 1:02 PM EST us Gerry Whitehead MD LAB MOLECULAR DIAGNOS TICS ORDERABLES Final Result [facility] (CLIA #:[id number]) [address] [place], [place] [address] [phone] * THINPREP PAP (04/17/2021 10:22 AM EDT) Clinical Information: None given [facility] COMMENT SEE COMMENT [facility] Comment: EXPLANATORY NOTE: The Pap is a screening test for cervical cancer. It is not a diagnostic test and is subject to false negative and false positive results. It is most reliable when a satisfactory sample, regularly obtained, is submitted with relevant clinical findings and history, and when the Pap result is evaluated along with historic and current clinical information. Walking Dragline Operator : SEE COMMENT [facility] Comment: GSG, CT(ASCP) CT screening location: [place] [address] Interpretation/R esult: Negative for intraepithelial lesion or malignancy. [facility] LMP: 03/21/2021 [facility] Prev. BX: NONE [facility] Prev. PAP: NIL 03/2015 HPV - FO [facility] SOURCE: Cervix [facility] Statement Of Adequacy: SEE COMMENT [facility] Comment: Satisfactory for evaluation. Endocervical/transformation zone component present. 04/17/2021 10:2 2 AM EDT Wendie DOGN LAB PATHOLOGY ORDERABLES Final Result [facility] [address] * HPV mRNA E6/E7 (04/17/2021 10:22 AM EDT) HPV nRNA E6/E7 Not Detected Not Detected [facility] Comment: Methodology: Cvicu Rn-Mediated Amplification This assay detects E6/E7 viral messenger RNA (mRNA) from 14 high-risk HPV types (16,18,31,33,35,39,45,51,52,56,58,59,66,68). The analytical performance characteristics of this assay have been determined by [employer]. The modifications have not been cleared or approved by the FDA. This assay has been validated pursuant to the CLIA regulations and is used for clinical purposes. For additional information, please refer to http://education.Nanostim/faq/EPW821b5 (This link if provided for information/ educational purposes only.) 04/17/2021 10:2 2 AM EDT us Wendie Sandoval CNM LAB BLOOD ORDERABLES Judy mohsen Result [facility] [address] from Last 3 Months or Most Recently Relevant to Health Maintenance Additional Health Concerns Active Problems Noted Date [...] 10/30/2025 Patient has chronic kidney disease 10/30/2025 Insurance Care Teams Faculty Research Assistant Relationship Specialty Start Date End Date Gerry Echavarria MD [address] [place] [address] PCP - General Internal Medicine 07/26/14 Jeannine Allen RN [address] [place] [address] Registered Nurse Family Medicine 08/28/25 Yoly Georges 08/29/25 Theron New Rail Car UnloaderSupervisor [place] 01/08/24 [facility] 12/28/24 Heather Pérez Rail Car UnloaderSupervisor [place] 05/23/25 Radah Sims Rail Car UnloaderSupervisor [place] 07/28/25
--- OUTSIDE RECORDS SUMMARY | 2025-11-01 06:28 | XMS_ITS | Encounter Summary ---
Author Organization [employer] Address [address] 7t [place] [address] Care Team Providers Care Dairy Clerk Name Role Phone Gerry Echavarria MD Primary Care Provide r Jeannine Allen RN Unavailable [phone] Yoly Georges Unavailable Reason for Visit * Reason Comments Med Refill Encounter Details Date Type Department Care Team (Late st Contact Info) Description 08/18/2023 Refill [facility] [address] [place] [address] Pb [place], [place] COVID-19 Social History Tobacco [...] your housing situation today? I have bird sing 08/18/[address] you li [...] Visit [facility] [address] [place] [address] Gerry Echavarria MD [address] [place] [address] 11/17/2025 9:30 AM EST Medication Management [facility] [address] [place] [address] Sumaya Jenkins PharmD [address] [place] [address] documented as of this encounter Goals Goal Patient Goal Type Associated Problems Recent Progress Patient-Stated? Author Blood Pressure < 140/90 Blood Pressure Essential hypertension 100/84(2024 11:46 AM EDT) No Angel Emmanuel, Roney Note: BP at goal every other day; encouraged lifestyle changes to promote BP control Follow the DASH diet Diet Essential hypertension On track( 024 4:06 PM EDT) Angel Adam PharmD Note: Look for low-sodium products Increase physical activity Exercise Essential hypertension On track( 4:06 PM EDT) Angel Adam, AroldoD Note: inactive, advised some amount of cardio can help with heart health documented as of this encounter Visit Diagnoses Diagnosis COVID-19 documented in this encounter Additional Health Concerns Assessment Noted Time PHQ-9 Depression Total Score: 11 023 2:03 PM EDT documented as of this encounter Care Teams Dairy Clerk Relationship Specialty Start Date End Date Gerry Echavarria MD [address] [place], [place] [phone] PCP - General Internal Medicine 07/26/14 Jeannine Allen RN [address] [place] [address] Registered Nurse Family Medicine 08/28/25 Yoly Georges 08/29/25 Theron New Bundles HangerExpert Medical Writer 01/08/24 [facility] 09/28/24 02/12/25 [facility] 12/28/24 Heather Pérez Bundles HangerExpert Medical Writer 05/23/25 Rdaha Sims Bundles HangerExpert Medical Writer 07/28/25 documented as of this encounter
--- OUTSIDE RECORDS SUMMARY | 2025-11-01 06:28 | XMS_ITS ---
Author Organization [employer] Address [address] [facility] 7t [place] [address] Care Team Providers Care Tinsmith Helper Name Role Phone Gerry Echavarria MD Primary Care Provide r Jeannine Allen RN Unavailable [phone] Yoly Georges Unavailable [facility] Complex Status:Enrolled (Active) Start date:08/29/2025 Enrollment date:09/13/2025 Enrollment reason:Referred by provider Overview Home Health Utilization Review- Connection to appropriate resources. Please outreach to patient. Case Team Name Relationship Phone Yoly Georges(Responsible Staff) Continued Care and Services Coordination
--- OUTSIDE RECORDS SUMMARY | 2025-11-01 06:28 | XMS_ITS ---
Author Organization [employer] Address [address] [facility] 7t [place] [address] Care Team Providers Care Counter Sales Person Name Role Phone Gerry Echavarria MD Primary Care Provide r Jeannine Allen RN Unavailable [phone] Yoly Georges Unavailable CM Complex Status:Enrolled (Active) Start date:08/28/2025 Enrollment date:09/18/2025 Enrollment reason:Referred by provider Overview Home Health Utilization Review- Connection to appropriate resources and collaboration on skilled VNA services reductions. Case Team Name Relationship Phone Jeannine Allen RN(Responsible Staff) Registered Nurse Continued Care and Services Coordination
--- OUTSIDE RECORDS SUMMARY | 2025-11-01 06:28 | XMS_ITS | Encounter Summary ---
Author Organization [employer] Address [address] 7[address] [place] [address] Care Team Providers Care Carriage Feeder Name Role Phone Gerry Echavarria MD Primary Care Provide r Jeannine Allen RN Unavailable [phone] Yoly Georges Unavailable Reason for Visit * Reason Onset Date Comments Order 09/18/2023 Encounter Details Date Type Department Care Team (Late st Contact Info) Description 09/18/2023 Telephone [facility] [address] [place], [place] [phone] Gerry Echavarria MD [address] [place], [place] [phone] Order Social History Tobacco Use Types Packs/Day [...] and video instructions. Please contact pt at [phone] Niuean Speaker TC placed with [employer] Developmental Writing Instructor ID # [id number]. Pt answered the phone and hung up on channeler outsole, called placed again and a message was left in Niuean for her to contact the [facility]. I do not see anything in [...] and video instructions. Please contact pt at [phone] Niuean Speaker documented in this encounter Plan of Treatment Upcoming Encounters Date Type Department Care Team (Late st Contact Info) Description 11/07/2025 11:00 AM EST Office Visit [facility] [place] [address] Gerry Echavarria MD [address] [place] [address] 11/17/2025 9:30 AM EST Medication Management [facility] [address] [place] [address] Sumaya Jenkins PharmD [address] [place] [address] documented as of this encounter Goals Goal [...] documented as of this encounter Care Teams Carriage Feeder Relationship Specialty Start Date End Date Gerry [place] [address] PCP - General Internal Medicine 07/26/14 Jeannine Allen, RN [address] [place] [address] Registered Nurse Family Medicine 08/28/25 Yoly Georges 08/29/25 Theron New Compounding Pharmacy TechnicianCensus Enumerator 01/08/24 [facility] 09/28/24 02/12/25 [facility] 12/28/24 Heather Pérez Compounding Pharmacy TechnicianCensus Enumerator 05/23/25 Radha Sims Compounding Pharmacy TechnicianCensus Enumerator 07/28/25 documented as of this encounter
--- OUTSIDE RECORDS SUMMARY | 2025-11-01 06:28 | XMS_ITS | Encounter Summary ---
Author Organization [employer] Address [address] 7[address] [place] [address] Care Team Providers Care Driver Guide Name Role Phone Gerry Echavarria MD Primary Care Provide r Jeannine Allen RN Unavailable [phone] Yoly Georges Unavailable Reason for Visit * Reason Onset Date Comments Med Refill 10/11/2024 Encounter Details Date Type Department Care Team (Late st Contact Info) Description 10/11/2024 Telephone [facility] [address] [place] [address] Gerry Echavarria MD [address] [place], [place] [phone] Med Refill Social History Tobacco Use Types [...] tablet To be sent to: [facility]/pharmacy #[id number] [place], [place] - [address] documented in this encounter Plan of Treatment Upcoming Encounters Date Type Department Care Team (Late st Contact Info) Description 11/07/2025 11:00 AM EST Office Visit [facility] [address] [place] [address] Gerry Echavarria MD [address] [place] [address] 11/17/2025 9:30 AM EST Medication Management [facility] [address] [place] [address] Sumaya Jenkins PharmD [address] [place] [address] documented as of this encounter Goals Goal [...] documented as of this encounter Care Teams Driver Guide Relationship Specialty Start Date End Date Gerry Echavarria MD [address] [facility] [place] [address] PCP - General Internal Medicine 07/26/14 Jeannine Allen RN [address] [place] [address] Registered Nurse Family Medicine 08/28/25 Yoly Georges 08/29/25 Theron New Log ManagerAudio Installer 01/08/24 [facility] 09/28/24 02/12/25 [facility] 12/28/24 Heather Pérez Log ManagerAudio Installer 05/23/25 Radha Sims Log ManagerAudio Installer 07/28/25 documented as of this encounter
--- OUTSIDE RECORDS SUMMARY | 2025-11-01 06:28 | XMS_ITS | Encounter Summary ---
Author Organization [employer] Address [address] 7[address] [place] [address] Care Team Providers Care Crate Maker Name Role Phone Gerry Echavarria MD Primary Care Provide r Jeannine Allen RN Unavailable [phone] Yoly Georges Unavailable Reason for Visit * Reason Onset Date Comments Med Refill 12/30/2022 Encounter Details Date Type Department Care Team (Late st Contact Info) Description 12/30/2022 Telephone [facility] [address] [place], [place] [phone] Gerry Echavarria MD [address] [place], [place] [phone] Med Refill Social History Tobacco Use Types [...] encounter Miscellaneous Notes * Telephone Encounter - Daina Domingo RN - 12/30/2022 1:16 PM EST Pt has no hx of being on meclizine in [facility] or [employer] * Telephone Encounter - Evelio Guevara - 12/30/2022 1:02 PM EST Tc from pt requesting a Script for Meclazine that helps pt with her ongoing lightheadedness. Please contact pt at [phone] documented in this encounter Plan of Treatment Upcoming Encounters Date Type Department Care Team (Late st Contact Info) Description 11/07/2025 11:00 AM EST Office Visit [facility] [address] [place] [phone] Gerry Echavarria MD [address] [place] [address] 11/17/2025 9:30 AM EST Medication Management [facility] [address] [place] [address] Sumaya Jenkins PharmD [address] [place] [address] documented as of this encounter Goals Goal [...] Increase physical activity Exercise Essential hypertension On track(04/29/2 024 4:06 PM EDT) Angel Adam, PharmD Note: inactive, advised some amount of cardio can help with heart health documented as of this encounter Visit Diagnoses Diagnosis Dizziness- Primary Dizziness and giddiness documented in this encounter Care Teams Crate Maker Relationship Specialty Start Date End Date Gerry Echavarria MD [address] [place], [place] [phone] PCP - General Internal Medicine 07/26/14 Jeannine Allen RN [address] [place], [place] [phone] Registered Nurse Family Medicine 08/28/25 Yloy Georges 08/29/25 Theron New Multifold OperatorFlying Squad Worker 01/08/24 [facility] 09/28/24 02/12/25 [facility] 12/28/24 Heather Pérez Multifold OperatorFlying Squad Worker 05/23/25 Radha Sims Multifold OperatorFlying Squad Worker 07/28/25 documented as of this encounter
--- OUTSIDE RECORDS SUMMARY | 2025-11-01 06:28 | XMS_ITS | Encounter Summary ---
Author Organization [employer] Address [address] 7[address] [place] [address] Care Team Providers Care Distribution Center Associate Name Role Phone Gerry Echavarria MD Primary Care Provide r Jeannine Allen RN Unavailable [phone] Yoly Georges Unavailable Reason for Visit * Reason Comments Med Refill Encounter Details Date Type Department Care Team (Late st Contact Info) Description 09/22/2023 Refill [facility] [address] [place], [place] [phone] Mala Williamson, ANP [address] [place], [place] [phone] Diarrhea, unspecified type; Irritable bowel syndrome, unspecified [...] Description 11/07/2025 11:00 AM EST Office Visit [facility] [address] [place] [address] Gerry Echavarria MD [address] [place] [address] 11/17/2025 9:30 AM EST Medication Management [facility] [address] [place] [phone] Sumaya Jenkins PharmD [address] [place] [address] documented as of this encounter Goals Goal [...] documented as of this encounter Care Teams Distribution Center Associate Relationship Specialty Start Date End Date Gerry Echavarria MD [address] [place], [place] [phone] PCP - General Internal Medicine 07/26/14 Jeannine Allen RN [address] [place] [address] Registered Nurse Family Medicine 08/28/25 Yoly Georges 08/29/25 Theron New Menu PlannerAutomobile Bumper Straightener 01/08/24 [facility] 09/28/24 02/12/25 [facility] 12/28/24 Heather Pérez Menu PlannerAutomobile Bumper Straightener 05/23/25 Radha Sims Menu PlannerAutomobile Bumper Straightener 07/28/25 documented as of this encounter
--- OUTSIDE RECORDS SUMMARY | 2025-11-01 06:28 | XMS_ITS | Encounter Summary ---
Author Organization [employer] Address [address] [address] [facility] 7t [place] [address] Care Team Providers Care Pediatric Surgeon Name Role Phone Gerry Echavarria MD Primary Care Provide r Jeannine Allen RN Unavailable [phone] Yoly Georges Unavailable Reason for Visit * Reason Comments Med Refill Encounter Details Date Type Department Care Team (Late st Contact Info) Description 11/13/2023 Refill [facility] MED[facility]INE [address] [place], [place] [phone] Krystina Haji MD [address] [place], [place] [phone] Chronic migraine without aura without status migrainosus, [...] Description 11/07/2025 11:00 AM EST Office Visit [facility] [address] [place] [address] Gerry Echavarria MD [address] [place] [address] 11/17/2025 9:30 AM EST Medication Management [facility] [address] [place] [address] Sumaya Jenkins PharmD [address] [place] [address] documented as of this encounter Goals Goal [...] documented as of this encounter Care Teams Pediatric Surgeon Relationship Specialty Start Date End Date Gerry Echavarria MD [address] [place], [place] [phone] PCP - General Internal Medicine 07/26/14 Jeannine Allen RN [address] [place] [address] Registered Nurse Family Medicine 08/28/25 Yoly Georges 08/29/25 Theron New Shipping Room HelperRefrigerator Crater 01/08/24 [facility] 09/28/24 02/12/25 [facility] 12/28/24 Heather Pérez Shipping Room HelperRefrigerator Crater 05/23/25 Radha Sims Shipping Room HelperRefrigerator Crater 07/28/25 documented as of this encounter
--- OUTSIDE RECORDS SUMMARY | 2025-11-01 06:28 | XMS_ITS | Encounter Summary ---
Author Organization [employer] Address [address] 7t [place] [address] Care Team Providers Care Piano Teacher Name Role Phone eGrry Echavarria MD Primary Care Provide r Jeannine Allen RN Unavailable [phone] Yoly Georges Unavailable Reason for Visit * Reason Onset Date Comments Nurse Triage 12/14/2023 Encounter Details Date Type Department Care Team (Late st Contact Info) Description 12/14/2023 Telephone [facility] MEDICINE 230 [place], [place] [phone] Gerry Echavarria MD [address] [place], [place] [phone] Nurse Triage Social History Tobacco Use Types [...] given number to free telehealth service via [facility] [phone]. Pt to call them to see if [...] cough,fever) (Exceptions: Already seen by doctor or HAND ENDBAND CUTTER/PA and no new or worsening symptoms.) * [...] accepted this outcome Please contact pt @ [phone] Turkmen Pt advices feels her chest a little tight. Came out positive for COVID on 12/14/2023 documented in this encounter Plan of Treatment Upcoming Encounters Date Type Department Care Team (Late st Contact Info) Description 11/07/2025 11:00 AM EST Office Visit [facility] MEDICINE [address] [place] [address] Gerry Echavarria MD [address] [place] [address] 11/17/2025 9:30 AM EST Medication Management [facility] MED[facility]INE [address] [place] [address] Sumaya Jenkins PharmD [address] [place] [address] documented as of this encounter Goals Goal [...] documented as of this encounter Care Teams Piano Teacher Relationship Specialty Start Date End Date Gerry Echavarria MD [address] [place] [address] PCP - General Internal Medicine 07/26/14 Jeannine Allen RN [address] [place] [address] Registered Nurse Family Medicine 08/28/25 Yoly Georges 08/29/[address] Deputy ClerkReproductive Healthcare Assistant 01/08/24 [facility] 09/28/24 02/12/25 [facility] 12/28/[address] Deputy ClerkReproductive Healthcare Assistant 05/23/[address] Deputy ClerkReproductive Healthcare Assistant 07/28/25 documented as of this encounter
--- OUTSIDE RECORDS SUMMARY | 2025-11-01 06:28 | XMS_ITS | Encounter Summary ---
Author Organization [employer] Address [address] 7t [place] [address] Care Team Providers Care Gang Miner Name Role Phone Gerry Echavarria MD Primary Care Provide r Jeannine Allen RN Unavailable [phone] Yoly Georges Unavailable Reason for Visit * Reason Comments Med Refill Encounter Details Date Type Department Care Team (Late st Contact Info) Description 09/22/2023 Refill [facility] MEDICINE 230 [place], [place] [phone] Tracey Leyva MD 230 [place], [place] [phone] Social History Tobacco Use Types Packs/Day Years [...] Description 11/07/2025 11:00 AM EST Office Visit [facility] MEDICINE [address] [place] [address] Gerry Echavarria MD 230 [place] [address] 11/17/2025 9:30 AM EST Medication Management [facility] [address] [place] [address] Sumaya Jenkins PharmD [address] [place] [address] documented as of this encounter Goals Goal [...] as of this encounter Care Teams Gang Miner Relationship Specialty Start Date End Date Gerry Echavarria MD [address] [place], [place] [phone] PCP - General Internal Medicine 07/26/14 Jeannine Allen, BLANCA [address] [place] [address] Registered Nurse Family Medicine 08/28/25 Yoly Georges 08/29/25 Theron New Trapper BirdSuperintendent Track 01/08/24 [facility] 09/28/24 02/12/25 [facility] 12/28/24 Heather Pérez Trapper BirdSuperintendent Track 05/23/25 Radha Sims Trapper BirdSuperintendent Track 07/28/25 documented as of this encounter
--- OUTSIDE RECORDS SUMMARY | 2025-11-01 06:28 | XMS_ITS | Encounter Summary ---
Author Organization [employer] Address [address] 7t [place] [address] Care Team Providers Care Microstrategy Reports Developer Name Role Phone Gerry Echavarria MD Primary Care Provide r Jeannine Allen RN Unavailable [phone] Yoly Georges Unavailable Reason for Visit * Reason Comments Med Refill Encounter Details Date Type Department Care Team (Late st Contact Info) Description 09/10/2023 Refill [facility] MED[facility]INE 230 [place], [place] [phone] Wendie Sandoval CNM [address] [place], [place] [phone] Social History Tobacco Use Types Packs/Day Years [...] Description 11/07/2025 11:00 AM EST Office Visit [facility] [address] [place] [address] Gerry Echavarria MD 230 [place] [address] 11/17/2025 9:30 AM EST Medication Management [facility] [address] [place] [phone] Sumaya Jenkins PharmD 230 [place] [address] documented as of this encounter Goals Goal [...] documented as of this encounter Care Teams Microstrategy Reports Developer Relationship Specialty Start Date End Date Gerry Echavarria MD 230 [place], [place] [phone] PCP - General Internal Medicine 07/26/14 Jeannine Allen, BLANCA [address] [place] [address] Registered Nurse Family Medicine 08/28/25 Yoly Georges 08/29/25 Theron New Strapping Machine TenderGear Finisher 01/08/24 [facility] 09/28/24 02/12/25 [facility] 12/28/24 Heather Pérez Strapping Machine TenderGear Finisher 05/23/25 Radha Sims Strapping Machine TenderGear Finisher 07/28/25 documented as of this encounter
--- OUTSIDE RECORDS SUMMARY | 2025-11-01 06:28 | XMS_ITS | Encounter Summary ---
Author Organization [employer] Address [address] 7t [place] [address] Care Team Providers Care Ward Service Supervisor Name Role Phone Gerry Echavarria MD Primary Care Provide r Jeannine Allen RN Unavailable [phone] Yoly Georges Unavailable Reason for Visit * Reason Comments Med Refill Encounter Details Date Type Department Care Team (Late st Contact Info) Description 08/18/2023 Refill [facility] MEDICINE 230 [place], [place] [phone] Wendie Sandoval CNM 230 [place], [place] [phone] Social History Tobacco Use Types Packs/Day Years [...] Description 11/07/2025 11:00 AM EST Office Visit [facility] MED[facility]INE [address] [place] [address] Gerry Echavarria MD 230 [place] [address] 11/17/2025 9:30 AM EST Medication Management [facility] [address] [place] [address] Sumaya Jenkins PharmD 230 [place] [address] documented as of this encounter Goals Goal [...] documented as of this encounter Care Teams Ward Service Supervisor Relationship Specialty Start Date End Date Gerry Echavarria MD 230 [place], [place] [phone] PCP - General Internal Medicine 07/26/14 Jeannine Allen, BLANCA 230 [place] [address] Registered Nurse Family Medicine 08/28/25 Yoly Georges 08/29/25 Theron New Laundry Equipment OperatorFood And Drug Inspector 01/08/24 Replaced By [facility] 09/28/24 02/12/25 [facility] 12/28/24 Heather Pérez Laundry Equipment OperatorFood And Drug Inspector 05/23/25 Radha Sims Laundry Equipment OperatorFood And Drug Inspector 07/28/25 documented as of this encounter
--- OUTSIDE RECORDS SUMMARY | 2025-11-01 06:29 | XMS_ITS | Patient Health Record ---
Author Organization [facility] Address [address] [place] [address] Care Team Providers Care Informatics Coordinator Name Role Phone Shantell Whitehead MD, Gerry Primary Care Provide r Unavailable Wesley Gibson Jr Unavailable [phone] Allergies Allergen (clinical drug ingredient) Drug/Non Drug Allergy documented on EMR Reaction Allergy Type Onset Date Status Penicillin Unknown Drug Allergy Active shrimp allergenic extract Shrimp (Diagnostic) Unknown Drug Allergy Active Reason For Referral Referring Provider First Name Gerry Referring Provider Last Name Shantell sellers Referring Provider Speciality Internal M edicine Referred Organization [facility] Referred Provider Wesley Gibson Jr Referred Address [address] [facility],[place], [place],[address], Referred Provider Specialty Gastroentero logy General Notes Zuleyka Thornton 2024 01:30:07 PM >REQUESTED A [place] REFERRAL FROM [facility] FOR VISIT WITH DR GIBSON ON [phone], Zuleyka Thornton 03/08/2025 03:18:36 PM >REQUSTED REFERRAL AGAIN Referral Priority Routine Medications Medication SIG (Take, Route, Frequency, Duration) Notes Start Date End Date Status Betamethasone Dipropionate 0.05 % Ointment PLEASE SEE ATTACHED FOR DETAILED DIRECTIONS External; Duration: 7 Active metroNIDAZOLE 500 MG Tablet 1 tablet Ora lly Three times a day; Duration: 14 days 02/24/2024 Active Celecoxib 100 MG Capsule TAKE 1 CAPSULE BY MOUTH TWICE A DAY Oral; Duration: 30 Active Dicyclomine HCl 20 MG Tablet 1 tablet Or ally 2-4 times a day 05/02/2015 Active Omeprazole 20 MG Capsule Delayed Release 1 Orally Twice a day; Duration: 14 days 02/24/2024 Active Ferrous Gluconate 324 (38 Fe) MG Tablet TAKE 1 TABLET BY MOUTH WITH BREAKFAST Oral; Duration: 90 Active Clarithromycin 500 MG Tablet 1 tablet Or ally Twice a day; Duration: 14 days 02/24/2024 Active Gabapentin 100 MG Capsule TAKE 2 CAPSULE S BY MOUTH 3 TIMES A DAY Oral; Duration: 30 Active Fluticasone Propionate 50 MCG/ACT Suspension SPRAY 2 SPRAYS INTO EACH NOSTRIL EVERY DAY Nasal; Duration: 90 Active Diclofenac Sodium 1 % Gel APPLY 4 G TOPI MICHAEL 2 TIMES DAILY. External; Duration: 30 Active FreeStyle Lite Test - Strip USE 1 EACH B Y DIRECTED ROUTE 2 TIMES EVERY DAY In Vitro; Duration: 25 Active Venlafaxine HCl ER 150 MG Capsule Extended Release 24 Hour TAKE 1 CAPSULE BY MOUTH EVERY DAY IN THE MORNING Oral; Duration: 30 Active predniSONE 20 MG Tablet TAKE 1 TABLET BY MOUTH EVERY DAY Oral; Duration: 5 Active Acetaminophen ER 650 MG Tablet Extended Release TAKE 1 TABLET BY MOUTH EVERY 8 HOURS IF NEEDED FOR MILD PAIN. DO NOT CRUSH, CHEW, OR SPLIT. Oral; Duration: 30 Active Lidocaine 5 % Patch APPLY 1 PATCH EVERY DAY NEEDED FOR PAIN (MAY WEAR UP TO 12 HOURS), REMOVE FOR 12 HOURS External; Duration: 30 Active FreeStyle Lancets - Miscellaneous USE 1 LANCET TO TEST BLOOD GLUCOSE 2 TIMES A DAY; Duration: 50 Active Baclofen 5 MG Tablet TAKE 1 TABLET BY MO UT TWICE A DAY NEEDED FOR MUSCLE SPASMS Oral; Duration: 30 Active Ketoconazole 2 % Shampoo APPLY TO SCALP TWICE A WEEK, LEAVE ON FOR 5 MIN, THEN RINSE. External; Duration: 30 Active clonazePAM 1 MG Tablet TAKE 1 AND 1/2 TA BLET BY MOUTH AT BEDTIME Oral; Duration: 30 Active Cetirizine HCl 10 MG Tablet TAKE 1 TABLE T BY MOUTH EVERY DAY Oral; Duration: 90 Active busPIRone HCl 30 MG Tablet TAKE 1 TABLET BY MOUTH TWICE A DAY Oral; Duration: 90 Active Lisinopril 10 MG Tablet TAKE 1 TABLET BY MOUTH EVERY DAY Oral; Duration: 90 Active MiraLax (colon prep) 8.3 ounce ((238) grams mixed with Gatorade or Crystal Light orally begin at 5:00 p.m. the day before the procedure; Duration: 1 day 01/13/2024 Active Omeprazole 20 MG Capsule Delayed Release TAKE 1 CAPSULE BY MOUTH EVERY 12 HRS Oral; Duration: 15 Active Dulcolax (colon prep) 5 MG Tablet Delayed Release take at 3:00 p.m and 7:00p.m. Orally two tablets twice a day for one day; Duration: 1 day 01/13/2024 Active metFORMIN HCl ER 500 MG Tablet Extended Release 24 Hour TAKE 2 TABLETS BY MOUTH EVERY DAY WITH EVENING MEALS Oral; Duration: 90 Active Immunizations Vaccine Route Administration Date Status Comme nts Influenza Unknown 01/13/2024 Refused Social History Social History Additional Details Category Social Info Options Details Miscellaneous: Marital status: Occupation: [employer]IVER Problems Problem Type SNOMED Code ICD Code Onset Dates Problem Status W/U Status Risk Notes Problem Abnormal feces (099125616) Abnormal findings in stool (R19.5) Active confirmed Problem Helicobacter pylori gastrointestinal tract infection (372727528) H. pylori infection (A04.8) Active confirmed Problem Gastroesophageal reflux disease (474188734) Gastroesophageal reflux disease, unspecified whether esophagitis present (K21.9) Active confirmed Problem Gastroesophageal reflux disease (disorder) (006963347) Chronic GERD (K21.9) Active confirmed Vital Signs Temperature 98.5 degrees Fahrenheit 04/10/2025 Blood pressure diastolic 01 mm Hg 04/10/2025 Height 65.75 in 04/10/2025 Blood pressure systolic 001 mm Hg 04/10/2025 Weight 208.4 lbs 04/10/2025 BMI 33.89 kg/m2 04/10/2025 Encounters Encounter Location Date Provider Diagnosis [facility] [address] [facility] [address] [place] [id number] 04/10/2025 Wesley Gibson Jr Abnormal findings in [...] Start Date Coverage End Date [facility] [address] [place] [address] [id number] CHERELLE FLOREZ Self - patient is the insured Medical (General) History Medical History History ICD Code Gastroesophageal reflux disease, EGD 02/01 4, H. pylori gastritis, treated Headaches Allergic rhinitis Insomnia Fibromyalgia Osteoarthritis Diabetes mellitus type 2 Colonoscopy 02/23, hyperplastic polyp, 10 -year follow-up Surgical History Surgery Date(Month/Year) tonsillectomy tubal ligation
--- OUTSIDE RECORDS SUMMARY | 2025-11-01 06:29 | XMS_ITS | Encounter Summary ---
Author Organization [employer] Address [address] [facility] 7t [place] [address] Care Team Providers Care Fountain Brush Assembler Name Role Phone Gerry Echavarria MD Primary Care Provide r Jeannine Allen RN Unavailable [phone] Yoly Georges Unavailable Reason for Visit * Reason Comments Med Refill Encounter Details Date Type Department Care Team (Late st Contact Info) Description 04/04/2023 Refill [facility] MEDICINE 230 [place], [place] [phone] Mala Williamson ANP 230 [place], [place] [phone] Diarrhea, unspecified type; Irritable bowel syndrome, unspecified [...] 11:00 AM EST Office Visit [facility] MEDICINE [address] [place] [address] Gerry Echavarria MD 230 [place] [address] 11/17/2025 9:30 AM EST Medication Management [facility] MEDICINE 230 [place], [place] [phone] Sumaya Jenkins PharmD 230 [place] [address] documented as of this encounter Goals Goal [...] documented as of this encounter Care Teams Fountain Brush Assembler Relationship Specialty Start Date End Date Gerry Echavarria MD [address] [place] [address] [phone] PCP - General Internal Medicine 07/26/14 Jeannine Allen, RN [address] [place] [address] [place], [place] [phone] Registered Nurse Family Medicine 08/28/25 Yoly Georges 08/29/25 Theron New Co Supervisor Grounds And LandscapeCasino Floor Person 01/08/24 [facility] 09/28/24 02/12/25 [facility] 12/28/24 Heather Pérez Co Supervisor Grounds And LandscapeCasino Floor Person 05/23/25 Radha Sims Co Supervisor Grounds And LandscapeCasino Floor Person 07/28/25 documented as of this encounter
--- OUTSIDE RECORDS SUMMARY | 2025-11-01 06:29 | XMS_ITS | Encounter Summary ---
Author Organization [employer] Address [address] 7t [place] [address] Care Team Providers Care Keysmith Name Role Phone Gerry Echavarria MD Primary Care Provide r Jeannine Allen RN Unavailable [phone] Yoly Georges Unavailable Reason for Visit * Reason Onset Date Comments Nurse Triage 04/06/2023 Encounter Details Date Type Department Care Team (Late st Contact Info) Description 04/06/2023 Telephone [facility]INE 230 [place], [place] [phone] Gerry Echavarria MD 230 [place], [place] [phone] Nurse Triage Social History Tobacco Use Types [...] 04/06/2023 4:58 PM EDT Triage call with Valentine Dental Technician Apprentice [place] [id number] Pt reports cough, sore throat, headache and [...] Pt is advised to come to [facility] today to be seenand Pt agrees [...] Getting worse The caller accepted this outcome (Amharic speaker) documented in this encounter Plan of Treatment Upcoming Encounters Date Type Department Care Team (Late st Contact Info) Description 11/07/2025 11:00 AM EST Office Visit [facility] MEDICINE [address] [place] [address] Gerry Echavarria MD 230 [place] [address] 11/17/2025 9:30 AM EST Medication Management [facility] [address] [place] [address] Sumaya Jenkins PharmD 230 [place] [address] documented as of this encounter Goals Goal [...] hypertension On track( 4:06 PM EDT) No Emmanuel, Jerril, PharmD Note: inactive, advised some amount of cardio can help with heart health documented as of this encounter Visit Diagnoses Not on filedocumented in this encounter Additional Health Concerns Assessment Noted Time PHQ-9 Depression Total Score: 11 023 2:03 PM EDT documented as of this encounter Care Teams Keysmith Relationship Specialty Start Date End Date Gerry Echavarria MD 230 [place], [place] [phone] PCP - General Internal Medicine 07/26/14 Jeannine Allen RN 230 [place], [place] [phone] Registered Nurse Family Medicine 08/28/25 Yoly Georges 08/29/25 Theron New Lotus Notes AdministratorRubber Belt Splicer 01/08/24 [facility] 09/28/24 02/12/25 [facility] 12/28/24 Heather Pérez Lotus Notes AdministratorRubber Belt Splicer 05/23/25 Radha Sims Lotus Notes AdministratorRubber Belt Splicer 07/28/25 documented as of this encounter
--- OUTSIDE RECORDS SUMMARY | 2025-11-01 06:29 | XMS_ITS | Encounter Summary ---
Author Organization [employer] Address [address] 7[address] [place] [address] Care Team Providers Care Security Supervisor Name Role Phone Gerry Echavarria MD Primary Care Provide r Jeannine Allen RN Unavailable [phone] Yoly Georges Unavailable Reason for Visit * Reason Comments Med Refill Encounter Details Date Type Department Care Team (Late st Contact Info) Description 04/08/2025 Refill [facility] 230 [place], [place] [phone] Gerry Echavarria MD 230 [place], [place] [phone] Diarrhea, unspecified type; Irritable bowel syndrome, unspecified [...] the past 12 months, has t he [employer], gas, oil or water company threatened to [...] Telephone Encounter - Joslyn Vazquez LPN - 04/10/2025 8:41 AM EDT Last seen 02/17/25. documented in this encounter Plan of Treatment Upcoming Encounters Date Type Department Care Team (Late st Contact Info) Description 11/07/2025 11:00 AM EST Office Visit [facility]INE [address] [place] [address] Gerry Echavarria MD [address] [place] [phone] 11/17/2025 9:30 AM EST Medication Management [facility] [address] [place] [address] Sumaya Jenkins, AroldoD [address] [place] [address] documented as of this encounter Goals Goal [...] documented as of this encounter Care Teams Security Supervisor Relationship Specialty Start Date End Date Gerry Echavarria MD 230 [place] [address] PCP - General Internal Medicine 07/26/14 Jeannine Allen RN 230 [place] [address] Registered Nurse Family Medicine 08/28/25 Yoly Georges 08/29/25 Theron New Business InstructorSubstation Engineer 01/08/24 [facility] 12/28/24 Heather Pérez Business InstructorSubstation Engineer 05/23/25 Radha Sims Business InstructorSubstation Engineer 07/28/25 documented as of this encounter
--- OUTSIDE RECORDS SUMMARY | 2025-11-01 06:29 | XMS_ITS | Encounter Summary ---
Author Organization [employer] Address [address] [facility] [address] [address] 7t [place] [address] Care Team Providers Care Cigarette Filter Inspector Name Role Phone Gerry Echavarria MD Primary Care Provide r Jeannine Allen RN Unavailable [phone] Yoly Georges Unavailable Reason for Visit * Reason Onset Date Comments Med Refill 11/07/2024 Encounter Details Date Type Department Care Team (Late st Contact Info) Description 11/07/2024 Refill [facility] MEDICINE 230 [place] [address] Name, MD Wai 230 [place], [place] [phone] Fibromyalgia Social History Tobacco Use Types Packs/Day [...] the past 12 months, has t he [employer], gas, oil or water company threatened to [...] Description 11/07/2025 11:00 AM EST Office Visit [facility] MED[facility] [address] [place] [address] Gerry Echavarria MD [address] [place] [address] 11/17/2025 9:30 AM EST Medication Management [facility] [address] [place] [address] Sumaya Jenkins PharmD [address] [place] [address] documented as of this encounter Goals Goal [...] documented as of this encounter Care Teams Cigarette Filter Inspector Relationship Specialty Start Date End Date Gerry Echavarria MD 230 [place] [address] PCP - General Internal Medicine 07/26/14 Jeannine Allen RN [address] [place] [address] Registered Nurse Family Medicine 08/28/25 Yoly Georges 08/29/25 Theron New Distance Education Faculty LiaisonRadar Signal Processing Engineer 01/08/24 [facility] 09/28/24 02/12/25 [facility] 12/28/24 Heather Pérez Distance Education Faculty LiaisonRadar Signal Processing Engineer 05/23/25 Radha Sims Distance Education Faculty LiaisonRadar Signal Processing Engineer 07/28/25 documented as of this encounter
--- OUTSIDE RECORDS SUMMARY | 2025-11-01 06:29 | XMS_ITS | Encounter Summary ---
Author Organization [employer] Address [address] [place] [address] Care Team Providers Care Concierge Manager Name Role Phone Gerry Echavarria MD Primary Care Provide r Jeannine Allen RN Unavailable [phone] Yoly Georges Unavailable Reason for Visit * Reason Comments Med Refill Encounter Details Date Type Department Care Team (Late st Contact Info) Description 03/24/2024 Refill [facility] [address] [place] [address] Name, MD Wai [address] [place], [place] [phone] Seasonal allergies Social History Tobacco Use Types [...] 11:00 AM EST Office Visit [facility] [address] [place] [phone] Gerry Echavarria MD [address] [place] [address] 11/17/2025 9:30 AM EST Medication Management [facility] [address] [place] [phone] Sumaya Jenkins PharmD [address] [place] [address] documented as of this encounter Goals Goal [...] documented as of this encounter Care Teams Concierge Manager Relationship Specialty Start Date End Date Gerry Echavarria MD [address] [place], [place] [phone] PCP - General Internal Medicine 07/26/14 Jeannine Allen, BLANCA [address] [place] [address] Registered Nurse Family Medicine 08/28/25 Yoly Georges 08/29/25 Theron [employer] Machine AdjusterManaging Cognitive Engineer 01/08/24 [facility] 09/28/24 02/12/25 [facility] 12/28/24 Heather éPrez Swaging Machine AdjusterManaging Cognitive Engineer 05/23/25 Radha Sims Swaging Machine AdjusterManaging Cognitive Engineer 07/28/25 documented as of this encounter
--- OUTSIDE RECORDS SUMMARY | 2025-11-01 06:29 | XMS_ITS | Encounter Summary ---
Author Organization [employer] Address [address] [place] [address] Care Team Providers Care Strip Stamp Straightener Name Role Phone Gerry Echavarria MD Primary Care Provide r Jeannine Allen RN Unavailable [phone] Yoly Georges Unavailable Encounter Details Date Type Department Care Team (Late st Contact Info) Description 04/13/2023 Abstract [facility] [address] [place], [place] [phone] Gerry Echavarria MD [address] [place], [place] [phone] Social History Tobacco Use Types Packs/Day Years [...] 11:00 AM EST Office Visit [facility] [place] [address] Gerry Echavarria MD [address] [facility] [place] [address] 11/17/2025 9:30 AM EST Medication Management [facility] [address] [facility] [place] [phone] Sumaya Jenkins, PharmD [address] [facility] [place] [address] documented as of this encounter Goals Goal [...] documented as of this encounter Care Teams Strip Stamp Straightener Relationship Specialty Start Date End Date Gerry Echavarria MD Randi [facility] [place] [phone] PCP - General Internal Medicine 07/26/14 Jeannine Allen, RN [address] [place] [phone] Registered Nurse Family Medicine 08/28/25 Yoly Georges 08/29/25 Theron [employer] Special[employer] 01/08/24 [facility] 09/28/24 02/12/25 [facility] 12/28/24 Heather Pérez Public Health [employer] 05/23/25 Radha Sims Public Health [employer] Special[employer] 07/28/25 documented as of this encounter
[2025-11-01 07:00] VITALS: BP 126/88; PULSE 82; RESP 20; TEMP 36.7; O2SAT 98
== END 2025-11-01 07:01 | disposition home or self-care (01) ==
PROVIDERS: Emergency Provider Emergency Medicine Emergency Medical Services; PCP Registered Nurse
DX: J10.1 Influenza due to other identified influenza virus with other respiratory manifestations (principal); J98.01 Acute bronchospasm; R05.9 Cough, unspecified; R07.9 Chest pain, unspecified; R50.9 Fever, unspecified; R42 Dizziness and giddiness; R53.1 Weakness; E11.9 Type 2 diabetes mellitus without complications; K21.9 Gastro-esophageal reflux disease without esophagitis; M79.7 Fibromyalgia; Z79.899 Other long term (current) drug therapy; Z87.891 Personal history of nicotine dependence
CPT/HCPCS: 36415; 71045; 80053; 85025; 87637; 87651; 99282

== ENCOUNTER → 2025-11-01 05:40 | Outpatient (BNV) | payer MEDICAID, SELFPAY | PROVIDERS: Emergency Provider Emergency Medicine Emergency Medical Services; PCP Registered Nurse; Visit Provider Radiology Vascular & Interventional Radiology | DX: R05.9 Cough, unspecified (principal) | CPT/HCPCS: 71045 ==